=== PATIENT | male | born 1945 | race Caucasian/White ===

== ENCOUNTER 2018-03-21 08:13 | Day surgery (SDC) | payer BC, MEDICARE, OTHER ==
--- NOTE | 2018-03-20 14:04 | History and Physical ---
History & Physical Date March 20, 2018. Chief Complaint Left knee pain History of Present Illness The patient is a 72 year old male with complaints of left knee pain. Patient has osteoarthritis of knee and did have some relief of knee pain following the Coolief procedure. He sustained a fall and twisted knee and has had significant increase of pain since. MRI was obtained demonstrating a tear of his medial meniscus. He wishes to proceed with arthroscopic partial medial meniscectomy. Patient denies fever, chills, sweats, headaches, chest pain, sob, cough, dysphagia, n/v/d/c, numbness, tingling, changes in vision, urinary problems. Past Medical/Surgical History Medical Problems: Asthma, Bronchitis, COPD/emphysema, HEYDI, BPH, obesity, history of DM2 Surgical history: Stent placement, cataracts, sinus surgery, tonsillectomy, leg fracture ORIF, bronchoscopy Social History: Patient lives in a 2 story home and is retired. He drinks alcohol on a rare occasion, denies drug or tobacco use. He is a former smoker Medications: Breo Ellipta, Spiriva, Ventolin, and Tramadol Allergies: NKDA Additional History Hepatic Disease: No Endocrine Disorder: Yes (history of DM2) Hypertension: No Heart Disease: Yes Bleeding Tendencies: No Infectious Diseases: No Allergies Coded Allergies: Fluticasone (Verified Allergy, Unknown, Unknown rxn, 07/30/14) Salmeterol (Verified Allergy, Unknown, Unknown rxn, 07/30/14) Home Medications Scheduled Beclomethasone Dipropionate (Qvar), 2 PUFFS INH BID Formoterol Fumarate (Perforomist), 20 MCG INH BID Furosemide (Lasix), 40 MG PO QAM Lorazepam (Ativan *), 0.5-1 MG PO Q8HR PRN Metformin Hcl (Glucophage), 1,000 MG PO BID Mometasone Furoate (Nasonex), 2 SPRAYS BRADLY DAILY Prednisone (Prednisone), 5 MG PO DAILY Tamsulosin Hcl (Flomax *), 0.4 MG PO DAILY Scheduled PRN Albuterol Hfa (Ventolin Hfa), 1-2 PUFFS INH for RESCUE INHALER Ciclesonide (Nasal) (Zetonna), 1 SPRAY BRADLY DAILY PRN for SINUS TROUBLE Ipratropium-Albuterol (Duoneb), 1 TREATMENT INH Q4H PRN for SOB/Wheezing Physical Examination Skin: warm/dry, no rash Eyes: normal inspection, sclerae normal ENT: normal ENT inspection, pharynx normal Head: normocephalic, atraumatic Neck: supple, no adenopathy, trachea midline Respiratory/Chest: lungs clear Cardiovascular: regular rate, rhythm Extremities: + pertinent finding (Left knee-Tenderness medial joint line. ROM- 10 degrees of extension, 120 degrees of flexion. Positive Rosa's) Neurologic/Psych: alert, normal reflexes, oriented x 3 Diagnosis Left knee Medial Meniscal tear Plan of Treatment MRI revealed complex tear of the medial meniscus. Treatment options were discussed with the patient including surgical and nonsurgical. Patient wishes to proceed with arthroscopic surgery. Risks, benefits, and alternatives to surgery were discussed with the patient including, but not limited to infection , failure to relieve all symptoms, pain, stiffness, need for additional surgery , progression of arthritis, damage to blood vessels, damage to nerves, PE, , risks of anesthesia and they demonstrated understanding. Patient is scheduled for left knee arthroscopic partial medial meniscectomy for 03/21/18.
--- NOTE | 2018-03-20 14:10 | DIAGNOSTIC IMAGING REPORT ---
CHEST 2 VIEWS ROUTINE CLINICAL HISTORY: 72 years-old Male presenting with PRE OP TESTING. TECHNIQUE: PA and lateral views of the chest were obtained. COMPARISON: 10/22/2014. FINDINGS: Atherosclerosis of the aortic arch. Cardiac silhouette normal in size. Elevation of the bilateral hemidiaphragms unchanged. Minimal linear bibasilar opacities. No other focal opacity. No pleural effusion or pneumothorax. Degenerative changes of the thoracic spine. Upper abdomen normal. IMPRESSION: 1. Minimal bibasilar atelectasis or scarring. No convincing evidence of acute cardiopulmonary disease. Electronically signed by: Sanya Morel M.D. 03/20/2018 2:08 PM Dictated Date/Time: 03/20/2018 2:08 PM
[2018-03-20 15:35] LABS: HEMATOCRIT 45.3 % (42-52); HEMOGLOBIN 15.6 g/dL (14.0-18.0); MEAN CELL VOLUME 82.7 fL (80-100); MEAN CORPUSCULAR HEMOGLOBIN 28.5 pg (25-34); MEAN CORPUSCULAR HGB CONC 34.4 g/dl (32-36); MEAN PLATELET VOLUME 9.5 fL (7.4-10.4); PLATELET COUNT 275 K/uL (130-400); RED CELL DISTRIBUTION WIDTH CV 13.3 % (11.5-14.5); RED CELL DISTRIBUTION WIDTH SD 40.3 fL (36.4-46.3); WHITE BLOOD COUNT 8.37 K/uL (4.8-10.8)
[2018-03-20 15:36] LABS: BASO % 0.6 %; BASO ABS # 0.05 K/uL (0-0.2); EOS % 4.1 %; EOS ABS # 0.34 K/uL (0-0.5); IG# 0.02 K/uL (0.00-0.02); LYMPH % 22.8 %; LYMPH ABS # 1.91 K/uL (1.2-3.4); MONO % 8.4 %; NEUT % 63.9 %; NEUT ABS # 5.35 K/uL (1.4-6.5)
[~2018-03-21] VITALS: Ht 175.3 cm; Wt 117.9 kg
[~2018-03-21 08:13] MED LIST: ATV1 PO; BECL0.3A INH; CEFAZOLIN 2000MG IV PUSH 15 ML IV SCH; FLM4 PO; FORM1NEB INH; FRS/40 PO; IPRASOL4 INH; LACTATED RINGER'S 1000ML 1,000 ML IV SCH; METF-384 PO; MOME50SP5 NAE; PATIENT'S HEIGHT AND/OR WEIGHT NEEDED SCH; PRED-301 PO; VNTHFA/IN INH; [UNRECOGNIZED DRUG - CODE] NAE
[2018-03-21 08:42] VITALS: BP 152/82; PULSE 73; TEMP 36.8; O2SAT 95; Ht 175.3 cm; Wt 117.9 kg
--- NOTE | 2018-03-21 09:09 | History & Physical Bridge Note ---
H&P Re-Evaluation Bridge Note: I have examined the patient, reviewed the History & Physical and in the interval since the performance of the History & Physical I have noted the following changes of clinical significance: No changes noted
[2018-03-21 09:16] LABS: BLOOD UREA NITROGEN 19 mg/dl (7-18); CREATININE 1.04 mg/dl (0.60-1.40); GLUCOSE 134 mg/dl (70-99)
[2018-03-21 09:17] LABS: CALCIUM 8.6 mg/dl (8.5-10.1); CARBON DIOXIDE 29 mmol/L (21-32); POTASSIUM 3.8 mmol/L (3.5-5.1); SODIUM 142 mmol/L (136-145)
[2018-03-21] MEDS ORDERED: MIDAZOLAM HCL 1 MG/ML 2ML VIAL ONE (10:49)
[2018-03-21] MEDS ORDERED: FENTANYL CITRATE INJ 50 MCG/1 ML 2 ML VIAL ONE ×3 (10:50→13:03)
[2018-03-21] MEDS ORDERED: BUPIVACAINE 0.25% 30 ML VIAL ONE (11:47)
[2018-03-21] MEDS ORDERED: LIDOCAINE/EPINEPHRINE 1% 20 ML VIAL ONE (11:47)
[2018-03-21] MEDS ORDERED: LIDOCAINE HCL 2% 2 ML VIAL (20MG/ML) ONE (11:56)
[2018-03-21] MEDS ORDERED: ONDANSETRON INJ 2 MG/ML 2 ML VIAL ONE (11:56)
[2018-03-21] MEDS ORDERED: PROPOFOL IV EMULSION 10 MG/ML 20 ML VIAL ONE ×2 (11:56→12:31)
[2018-03-21] MEDS ORDERED: CEFAZOLIN SOD 1 GM VIAL ONE (11:56)
[2018-03-21] MEDS ORDERED: ONDANSETRON INJ 2 MG/ML 2 ML VIAL IV PRN (12:00)
[2018-03-21] MEDS ORDERED: ATROPINE SULFATE 0.1 MG/ML 5ML SYR IV PRN (12:00)
[2018-03-21] MEDS ORDERED: FENTANYL CITRATE INJ 50 MCG/1 ML 2 ML VIAL IV PRN (12:00)
[2018-03-21] MEDS ORDERED: BUPIVACAINE 0.5 % 5 MG/1 ML PF 10ML VIAL ONE (12:03)
--- NOTE | 2018-03-21 12:18 | Discharge Instructions ---
Discharge Instructions Date of Service March 21, 2018. Visit Reason for Visit: Left Knee Medial Meniscus Tear Discharge Discharge Diagnosis / Problem: Left knee Medial Meniscus tear Discharge Goals Goal(s): Decrease discomfort, Improve function Activity Recommendations Activity Limitations: per Instructions/Follow-up section Anesthesia . Post Anesthesia Instructions: If you have had General Anesthesia or IV Sedation: * Do not drive today. * Resume driving when surgeon permits. * Do not make important decisions or sign legal documents today. * Call surgeon for: 1. Temperature elevations greater than 101 degrees F. 2. Uncontrollable pain. 3. Excessive bleeding. 4. Persistent nausea and vomiting. 5. Medication intolerance (nausea, vomiting or rash). * For nausea and vomiting use only clear liquids such as: tea, soda, bouillon until nausea subsides, then gradually increase diet as tolerated. * If you have any concerns or questions, call your surgeon's office. If physician is unavailable and it is an emergency, call 911 or go to the nearest emergency room. . Instructions / Follow-Up Instructions / Follow-Up SPECIAL CARE INSTRUCTIONS: * You may cleanse the skin adjacent to the small wounds with soap and water at the time of the first dressing change. * The application of an ice bag to the front and sides of the knee will decrease swelling and discomfort for the first 48 hours. * The small incisions may be sore and develop bruising. This bruising does not require any special care. SPECIAL PRECAUTIONS: * If you experience unusual pain unrelieved by prescriptions, temperature elevation (101 degrees F. or above) or progressive swelling or bleeding, you should contact our office at for further evaluation. * You may have been prescribed pain medication. If you experience nausea and/or fine skin rash, discontinue this medication and contact our office at for an alternate medication. DRESSING: * Dressing should be comfortable and absorb any leakage of fluid and/or blood. * The dressing may become moist or bloodstained. * Dressing may be removed 48 hours after surgery and bandaids placed over the small surgical incisions. If can be removed sooner if it becomes very soiled or loose. * Bandaids may be used over next several days as needed and can be discontinued when there is not further drainage from the wounds. FOLLOW UP VISIT: If appointment is not already scheduled: Please call [facility] at to schedule a follow up appointment with Dr. Plasencia 10-14 days following your surgery. Diet Recommendations Recommended Home Diet: resume previous diet Procedures Procedures Performed: Left knee arthroscopic partial medial meniscetcomy Pending Studies Studies pending at discharge: no Medical Emergencies . Who to Call and When: Medical Emergencies: If at any time you feel your situation is an emergency, please call 911 immediately. . Non-Emergent Contact Non-Emergency issues call your: Surgeon Call Non-Emergent contact if: temperature is above 101.5, your pain is not controlled, your pain is worsening, your pain is concerning you, wound has increased drainage, wound has increased redness . . "Provider Documentation" section prepared by Kei Ortega. . [place] Drug Monitoring Program Search Results: patient reviewed within database, no issues identified
[2018-03-21] MEDS ORDERED: HYDR-5688 PO (12:19)
--- NOTE | 2018-03-21 12:51 | [facility] Operative Report ---
Operative Report Operative Date March 21, 2018. Pre-Operative Diagnosis Left Knee Medial Meniscal Tear Post-Operative Diagnosis Same as preoperative Procedure(s) Performed Left knee arthroscopic partial medial meniscetcomy Surgeon Dr. Sanya Plasencia Photographic Specialist Surgeon(s) None per surgeon Estimated Blood Loss 1ml Findings As above Specimens None per surgeon. Drains None Anesthesia Type General Complication(s) none Disposition Recovery Room / PACU Indications Patient is a 72-year-old male who has had long-standing pain in the left knee. He sustained traumatic injury and developed significant pain and mechanical symptoms. He is failed conservative measures including cortisone injection and physical therapy and anti-inflammatories. MRI demonstrates a complex medial meniscus tear and he wishes to proceed with arthroscopy. Description of Procedure MRI demonstrated a complex tear of the posterior horn of the lateral meniscus. We discussed various treatment measures. The patient wished to proceed with arthroscopic partial lateral meniscectomy. Risks, benefits and alternatives to surgery including, but not limited to, infection, DVT, pain, stiffness, need for revision surgery, failure to relieve all symptoms, damage to blood vessels, damage to nerves, risk of the anesthesia were discussed with the patient and they wished to proceed. The patient was identified. Laterality was confirmed and marked. The patient received a preoperative antibiotic. They were transferred to the operating room and placed in supine position and induced into general endotracheal anesthesia per the anesthesia staff. A well-padded tourniquet was placed on the thigh and the limb was prepped and draped in the usual standard manner with ChloraPrep. The limb was exsanguinated and the tourniquet was inflated. I made a standard anterolateral viewing portal made through a stab incision and bluntly entered the suprapatellar pouch. Then under spinal needle localization I established an anteromedial portal. There was grade 3 cartilage of the patella. There was grade 3 cartilage of the trochlea. There was grade 2 and 3 cartilage of the medial femoral condyle. There was grade 2 cartilage with a small region of 4 posteriorly of the medial tibial plateau. The medial meniscus had a complex tear of the posterior horn with a radial tear going through the entirety of the medial meniscus. This was debrided back to a stable base utilizing combination of the shaver as well as meniscal biter. The ACL and PCL were probed and were normal. The lateral meniscus was normal There was grade 0 cartilage of the lateral femoral condyle. There was grade 1 cartilage of the lateral tibial plateau. All of the instrumentation was removed from the knee. The portal sites were closed with nylon. A sterile dressing was applied and the tourniquet was released. All needle and sponge counts were correct at the end of the procedure. The patient was transferred to the PACU in stable condition without apparent complication. I attest to the content of the Intraoperative Record and any orders documented therein. Any exceptions are noted below.
[2018-03-21] MEDS ORDERED: NURSING VERBAL MED ORDER ONE ×2 (13:20→13:42)
[2018-03-21] MEDS ORDERED: KETOROLAC TROMETHAMINE 30 MG/ML VIAL ONE (13:21)
[2018-03-21 13:50] VITALS: BP 124/53; PULSE 67; TEMP 36.3; O2SAT 98
[2018-03-21] MEDS ORDERED: HYDROCODONE/ACETAMIN 5/325MG TAB PO PRN (14:00)
--- NOTE | 2018-03-21 14:28 | Anesthesiology Progress Note ---
Anesthesia Post Op Note Date & Time March 21, 2018 at 14:28 Vital Signs Pain Intensity: 4 Vital Signs Past 12 Hours Date Time Temp Pulse Resp B/P (MAP) Pulse Ox O2 Delivery O2 Flow Rate FiO2 03/21/18 13:35 36.2 70 12 152/81 95 Room Air 03/21/18 13:25 66 19 139/84 97 Nasal Cannula 2 03/21/18 13:15 66 14 143/81 100 Nasal Cannula 3 03/21/18 13:05 70 17 182/96 99 Nasal Cannula 3 03/21/18 12:57 36.0 68 19 165/114 99 Nasal Cannula 3 03/21/18 08:42 36.8 73 20 152/82 (105) 95 Room Air Notes Mental Status: alert / awake / arousable, participated in evaluation Pt Amnestic to Procedure: Yes Nausea / Vomiting: adequately controlled Pain: adequately controlled Airway Patency, RR, SpO2: stable & adequate BP & HR: stable & adequate Hydration State: stable & adequate Anesthetic Complications: no major complications apparent
[2018-03-21 14:30] VITALS: BP 151/72; PULSE 76; TEMP 36.3; O2SAT 93
== END 2018-03-21 14:43 | disposition home or self-care (01) ==
LOC: C.ACU 08:13
PROVIDERS: ATTEND Orthopaedic Surgery
DX: S83.232A Complex tear of medial meniscus, current injury, left knee, initial encounter (principal); X58.XXXA Exposure to other specified factors, initial encounter; I25.10 Atherosclerotic heart disease of native coronary artery without angina pectoris; J44.9 Chronic obstructive pulmonary disease, unspecified; J45.909 Unspecified asthma, uncomplicated; M17.12 Unilateral primary osteoarthritis, left knee; G47.33 Obstructive sleep apnea (adult) (pediatric); E66.9 Obesity, unspecified; Z68.31 Body mass index [BMI] 31.0-31.9, adult; E11.9 Type 2 diabetes mellitus without complications; Z98.49 Cataract extraction status, unspecified eye; Z98.890 Other specified postprocedural states; Z90.89 Acquired absence of other organs; F17.200 Nicotine dependence, unspecified, uncomplicated; Z79.899 Other long term (current) drug therapy

== ENCOUNTER 2019-08-06 07:25 | Inpatient (IN) ==
[2019-08-06] MEDS ORDERED: ICU PROTOCOL FOR HYPERGLYCEMIA PRN (12:04)
[2019-08-06] MEDS ORDERED: PIPERACILL/TAZOBAC CONSULT ACTIVE PRN (12:11)
[2019-08-06] MEDS ORDERED: VANCOMYCIN CONSULT ACTIVE PRN (12:11)
[2019-08-06] MEDS ORDERED: PIPERACILLIN/TAZOBACTAM 3.375 GM in DEXTROSE 5% 100 ML IV SCH (12:15)
[2019-08-06] MEDS ORDERED: VANCOMYCIN HCL 1,800 MG in SODIUM CHLORIDE 0.9% 500 ML IV SCH (12:15)
[2019-08-06] MEDS ORDERED: NOREPINEPHRINE BIT INJ 8 MG in DEXTROSE 5% 500 ML IV SCH (12:45)
--- NOTE | 2019-08-06 12:58 | XRay Report ---
XR chest 1V portable CLINICAL HISTORY: 73 years-old Male presenting with Hypoxic respiratory failure. TECHNIQUE: Portable upright AP view of the chest was obtained. COMPARISON: 10/22/2014. FINDINGS: Left subclavian central venous catheter terminates in the mid SVC. Cardiomediastinal silhouette piyush l allowing for mildly low lung volumes and hypoventilatory changes. Bandlike opacity at the left lung base. No other focal opacity. Mild pulmonary vessel prominence. No large effusion or pneumothorax. D egenerative changes of the thoracic spine. Upper abdomen normal. IMPRESSION: 1. Mildly low lung volumes with hypoventilatory changes and left basilar atelectasis. 2. Mild volume overload may be present. No prasanth pulmonary edema or focal infiltrate. 3. Appropriately positioned central venous catheter. No pneumothorax. Electronically signed by: Sanya Morel M.D. 08/06/2019 12:57 PM
[2019-08-06] MEDS ORDERED: CARBOHYDRATES FOR HYPOGLYCEMIA PO PRN (13:00)
[2019-08-06] MEDS ORDERED: DEXTROSE 50% 50 ML SYRINGE IV PRN (13:00)
[2019-08-06] MEDS ORDERED: INSULIN GLARGINE SOLOSTAR 100 UNITS/ML 3 ML PEN SC ONE (13:00)
[2019-08-06] MEDS ORDERED: PIPERACILLIN/TAZOBACTAM 4.5 GM in DEXTROSE 5% 100 ML IV ONE (13:00)
[2019-08-06] MEDS ORDERED: GLUCAGON FOR INJ 1 MG VIAL IM PRN (13:00)
[2019-08-06] MEDS ORDERED: INSULIN ASPART 100 UNITS/ML 3 ML PEN SC ONE (13:00)
[2019-08-06] MEDS ORDERED: GLUCOSE 40% GEL 15 GM TUBE PO PRN (13:00)
[2019-08-06] MEDS ORDERED: GLUCOSE 10 TABS/TUBE PO PRN (13:00)
[2019-08-06 13:03] LABS: Albumin Level 2.9 gm/dl (3.4-5.0); BUN Creatinine Ratio 21.8 (10-20); Calcium 8.5 mg/dl (8.5-10.1); Creatinine Clr Calc Pharmacy 56.4 ml/min; Est GFR (African American) 56.4; Est GFR (Non-African American) 48.7; Magnesium 2.3 mg/dl (1.8-2.4); Potassium 4.1 mmol/L (3.5-5.1)
[2019-08-06 13:08] LABS: Bilirubin,Total 0.7 mg/dl (0.2-1); Globulin 2.9 gm/dl (2.5-4.0); Phosphorus 3.3 mg/dl (2.5-4.9); Total Protein 5.8 gm/dl (6.4-8.2)
[2019-08-06 13:10] LABS: Hematocrit (blood only) 41.7 % (42-52); Hemoglobin 13.8 g/dL (14.0-18.0); Mean Corpuscular Hemoglobin 28.7 pg (25-34); Mean Corpuscular Hgb Conc 33.1 g/dL (32-36); Mean Corpuscular Volume 86.7 fL (80-100); Mean Platelet Volume 9.8 fL (7.4-10.4); Platelet Count 275 K/uL (130-400); RDW Coefficient of Variation 14.2 % (11.5-14.5); RDW Standard Deviation 44.6 fL (36.4-46.3); Red Blood Count 4.81 M/uL (4.7-6.1); White Blood Count 82.24 K/uL (4.8-10.8)
[2019-08-06 13:11] LABS: Basophils # (auto) 0.08 K/uL (0-0.2); Basophils % (auto) 0.1 %; Eosinophils # (auto) 0.03 K/uL (0-0.5); Immature Granulocytes # (auto) 2.27 K/uL (0.00-0.02); Immature Granulocytes % (auto) 2.8 %; Lymphocytes # (auto) 0.42 K/uL (1.2-3.4); Lymphocytes % (auto) 0.5 %; Monocytes # (auto) 2.36 K/uL (0.11-0.59); Monocytes % (auto) 2.9 %; Neutrophils # (auto) 77.08 K/uL (1.4-6.5); Neutrophils % (auto) 93.7 %
[2019-08-06] MEDS: PATIENT'S HEIGHT AND/OR WEIGHT NEEDED SCH ×2 (13:35→15:25)
[2019-08-06] MEDS ORDERED: SODIUM CHLORIDE 0.9% 1000ML 500 ML IV ONE ×2 (13:36→15:24)
[2019-08-06 14:13] LABS: Hematocrit (blood only) 39.1 % (42-52); Hemoglobin 13.1 g/dL (14.0-18.0); Mean Corpuscular Hemoglobin 28.9 pg (25-34); Mean Corpuscular Hgb Conc 33.5 g/dL (32-36); Mean Corpuscular Volume 86.3 fL (80-100); Mean Platelet Volume 9.5 fL (7.4-10.4); Platelet Count 279 K/uL (130-400); RDW Coefficient of Variation 14.3 % (11.5-14.5); RDW Standard Deviation 45.1 fL (36.4-46.3); Red Blood Count 4.53 M/uL (4.7-6.1); White Blood Count 75.41 K/uL (4.8-10.8)
[2019-08-06 14:17] LABS: iSTAT Allen Test Pass; iSTAT Arterial Blood Gas HCO3 18 meg/L (19-24); iSTAT Arterial Blood Gas pCO2 32 mmHg (35-46); iSTAT Arterial Blood Gas pH 7.35 (7.35-7.45); iSTAT Arterial Blood Gas pO2 87 mmHg (80-95); iSTAT Carbon Dioxide 19 mEq/l (24-31); iSTAT Site L Radial
[2019-08-06 14:20] LABS: Basophils % (auto) 0.1 %; Eosinophils # (auto) 0.01 K/uL (0-0.5); Immature Granulocytes # (auto) 1.85 K/uL (0.00-0.02); Immature Granulocytes % (auto) 2.5 %; Lymphocytes # (auto) 0.33 K/uL (1.2-3.4); Lymphocytes % (auto) 0.4 %; Monocytes # (auto) 2.04 K/uL (0.11-0.59); Monocytes % (auto) 2.7 %; Neutrophils # (auto) 71.08 K/uL (1.4-6.5); Neutrophils % (auto) 94.3 %
[2019-08-06] MEDS ORDERED: PHARMACY GLYCEMIC MGMT CONSULT SCH (15:24)
--- NOTE | 2019-08-06 15:34 | Pharmacy Report ---
Pharmacy Abx Dose Short Note - Date of Service August 06, 2019 - Assessment & Plan Assessment 73 year old M receiving vancomycin, zosyn, and azithromycin for treatment of possible sepsis. Patient received 1500mg IV vanc at 0612, Rocephin, and azithromycin at ROSALINDA perri as confirmed with ED nurse. Will start maintenance dosing of vancomycin this afternoon early, as a modified load, given ROSALINDA perri dose was only 15mg/kg. Further dosing and trough attainment will depend on kidney function trend. Day # 1 of antimicrobial therapy. Plan Vancomycin * Random level was 13 mcg/mL 6 hours post first dose * Start dose of 1500 mg IV every 18 hours @ 1600 * Trough or random level ordered for: as clinically indicated pending renal function trend Pharmacy will continue to follow and will adjust dose/frequency as necessary. Thank you.
--- NOTE | 2019-08-06 15:40 | Critical Care Consultation ---
Date of Consultation August 06, 2019 Assessment & Plan (1) COPD (chronic obstructive pulmonary disease): Reason Critically Ill: 73 year old man here with 2 weeks of URI symptoms. Has continued to have worsening cough and shortness of breath. Had some chest pain last night. Neuro: Intact, no deficits CAM-ICU negative WIll continue to monitor VERY HARD OF HEARING Cardiovascular: Hypotensive requiring .1mcg/kg/min of levophed Not tachycardic, no chest pain currently WIll order troponin Bedside ultrasound showing good heart squeeze and no asymmetry, will order formal echo Septic shock vs cardiogenic shock Patient denies history of heart disease, but his records from outside hospital mention CAD with stent placement Respiratory Oxygenating well on nasal cannula set at 2 L of oxygen No respiratory distress, slightly tachypneic at 24 respirations per minute Likely compensating for metabolic acidosis by blowing off CO2 GI: No GI symptoms No abdominal pain or tenderness on exam WIll get a CT abdomen to rule out abdominal source ID: Concerned for septic shock unknown cause Lactate 6.1 Procal >120 Lungs appear clear on CXR awaiting CTA from outside hospital to be transcribed CT abdomen pelvis ordered Awaiting blood cultures and urinary cultures Possible bacteremia/fungemia HEME: White count 82.24 Peripheral smear concerning for myeloproliferative disease, ordered LDH BCR-ABL will consult hematology Dipso: ICU for pressor requirement DVT PPx: Lovenox F/E/N: Bolusing normal saline currently up 1 L Code Status: Full (2) Asthma: (3) Bronchitis: (4) Sepsis: (5) Septic shock: (6) Neutrophilia: (7) Hypotension: (8) Acute hypoxemic respiratory failure: Supervising Physician Co-Signing Physician Notes Dr. Felix was the resident-physician during care of patient. I separately evaluated patient for henry portions of the history and the exam. I was present during the critical portion of medical decision making, and I discussed the case with the resident. I generally agree with the findings and plan except for any additions/exceptions noted. Patient seen and examined at bedside. Transferred from [facility] in shock on vasopressors. Saturating 98% on 2 L nasal cannula with Mild respiratory distress. Lungs clear. Patient is coughing but not bringing up any phlegm. WBC count 75 thousand confirmed on repeat. Pathology saw blasts. Oncology has been consulted. CXR, CT abd and pelvis reviewed. No clear source of infection although patients PCT is 103. ESR 16 and CRP: 7. Recent travel history to [facility]. Patient's cortisol level 17. Low compared to the high stress the patient is in. Patient denies taking any steroids recently or being on steroids for a long time. Will get cosyntropin test. Get ferritin level. C/w broad spectrum antibiotics for the time being. BiPAP qhs. If there is any deterioration in clinical status will intubate the patient. Goals of care discussed with patient. Bedside US: Good EF, no pericardial tamponade, Normal RVOT. No B lines appreciated anteriorly. I have personally spent 70 minutes of critical care time in the direct management of this patient. This is a life/limb threatening event. This includes time spent evaluating patient, direct bedside care, chart review, placing orders, interpretation of diagnostic studies, discussion with consultants, patient, and/or family members regarding treatment decisions, as well as other required patient management activities. This time is exclusive of all separately billable procedures, and teaching time and separate from and in addition to any other critical care service time. History of Present Illness Reason for Consultation: Septic Shock Requesting Physician: Renato Guillermo DO Attending Physician: Renato Guillermo DO History of Present Illness Kei Lassiter is a 73 year old man with a past medical history significant for CAD with stent placement and COPD here today as a transfer from [facility] for septic shock. Today he is alert and tells us he started to get sick two weeks ago while he was in [place], he has been having a cough, occasional chest pain, shortness of breath, fatigue, pain and fevers/chills. He is very hard of hearing. He had an elevated lactate to 6.0 at outside hospital up from4.0 on admission, his white count at outside hospital was 22, on admission to us it was as high as 82 rechecked and it was down to 75. Lactate elevated further to 6.1. Creatinine jumped to 1.45 bicarb slightly low at 19. Rest of electrolytes unremarkable ABG showed compensated metabolic acidosis. AST and ALT elevated to 60 and 96 respectively. CRP elevated to 7.62, procalcitonin of 103.68. Patient maintaining pressure on .1mcg/KG/min. oxygenating well on 2L by nasal cannula. Rest of vital signs stable. Patient denies any chest pain, Belly pain, GI symptoms, Urinary symptoms other than some chronic frequency from BPH, no other wounds, rashes or pain patient can report. History from patient is VERY difficult due to his hearing difficulty. Allergies Allergy/AdvReac Type Severity Reaction Status Date / Time fluticasone Allergy Mild Hives Verified 07/31/19 12:02 salmeterol Allergy Mild Hives Verified 07/31/19 12:02 Home Medications Home Medications Medication Instructions Recorded Confirmed Type albuterol sulfate HFA 90 2 puffs INHALATION Q4H #18 gm 07/31/19 07/31/19 Rx mcg/actuation aerosol inhaler fluticasone furoate 100 1 inh INH DAILY #1 inhaler 07/31/19 07/31/19 Rx mcg-vilanterol 25 mcg/dose inhalation powder ipratropium-albuterol 0.5 mg-3 3 ml INHALATION Q4H PRN #180 ml 07/31/19 07/31/19 Rx mg(2.5 mg base)/3 mL nebulization soln levofloxacin 750 mg tablet 750 mg PO DAILY #14 tab 07/31/19 07/31/19 Rx nebulizers #1 ea 07/31/19 07/31/19 Rx prednisone 10 mg tablet See Rx Instructions PO DAILY #20 07/31/19 07/31/19 Rx tab Patient History Medical History COPD (chronic obstructive pulmonary disease) Family History Other Hypertension Social History Preferred Language: Burmese Communication Ability: Effective Plaster Tender Required: No Beliefs That Will Affect Care: None Current Living Situation: Other Current Living Situation Comment: with significant other. Son yemi lives within a few minutes Other Information That Helps Us Care for You: No Feels Safe at Home: Yes Safety Concerns: Feels Safe At This Time Smoking Status: Former smoker Tobacco Type: cigarettes ; Age Started Using Tobacco: 15 ; Age Quit Using Tobacco: 30 ; packs per day: 2 ; Smoking End Date: 1975 ; Number of Years Since Quit: 44 ; Second Hand Exposure: Yes ; Hx Alcohol Use: No Hx Substance Use: No Review of Systems Review of Systems: All systems reviewed & are unremarkable except as noted in HPI & below Physical Exam Constitutional: Constitutional: Ill appearing 73 year old man appears stated age. Respiratory: Lungs clear to auscultation, vesicular in all lung serrano, chest expansion symmetric Cardiovascular: Heart sounds dual, no m/r/s/g, distal pulses intact and strong, cap refill <5 seconds GI: Abdomen soft, nontender, no hepatomegaly or splenomegaly appreciated. SKin: Bilateral axillary hyperpigmented rash, no bruising, no bleeding, no wounds Neuro: AAOx4, no focal deficits, no weakness Results & Data Vital Signs (Past 12 Hours) Abnormal lab results 08/06/19 08/06/19 08/06/19 Range/Units 12:32 12:32 12:32 WBC 82.24 H* (4.8-10.8) K/uL RBC (4.7-6.1) M/uL Hgb 13.8 L (14.0-18.0) g/dL Hct 41.7 L (42-52) % Immature Gran # (Auto) 2.27 H (0.00-0.02) K/uL Neut # (Auto) 77.08 H (1.4-6.5) K/uL Lymph # (Auto) 0.42 L (1.2-3.4) K/uL [place] # (Auto) 2.36 H (0.11-0.59) K/uL ESR (0-14) mm/hr POC pCO2 (35-46) mmHg POC HCO3 (19-24) danielle/L POC Total CO2 (24-31) mEq/l POC ABG O2 Sat (90-95) % Chloride 110 H (98-107) mmol/L Carbon Dioxide 19 L (21-32) mmol/L Anion Gap 12.0 H (3-11) BUN 31 H (7-18) mg/dl Creatinine 1.42 H (0.6-1.4) mg/dl BUN/Creatinine Ratio 21.8 H (10-20) Glucose 222 H (70-99) mg/dl POC Glucose (70-99) POC Glucose (other) (70-99) mg/dl Lactate 6.1 H* (0.4-2.0) mmol/L Ferritin (8-388) ng/ml AST 60 H (15-37) U/L ALT 96 H (12-78) U/L Troponin I (0-0.045) ng/ml C-Reactive Protein (0-0.29) mg/dl NT-Pro-B Natriuret Pep 3567 H (0-900) pg/ml Total Protein 5.8 L (6.4-8.2) gm/dl Albumin 2.9 L (3.4-5.0) gm/dl Procalcitonin (0-0.5) ng/ml Urine Blood (Negative) Urine RBC (Auto) (0-4) /hpf U Epithel Cells (Auto) (0-5) /lpf 08/06/19 08/06/19 08/06/19 Range/Units 12:32 12:35 12:36 WBC (4.8-10.8) K/uL RBC (4.7-6.1) M/uL Hgb (14.0-18.0) g/dL Hct (42-52) % Immature Gran # (Auto) (0.00-0.02) K/uL Neut # (Auto) (1.4-6.5) K/uL Lymph # (Auto) (1.2-3.4) K/uL [place] # (Auto) (0.11-0.59) K/uL ESR 16 H (0-14) mm/hr POC pCO2 (35-46) mmHg POC HCO3 (19-24) danielle/L POC Total CO2 (24-31) mEq/l POC ABG O2 Sat (90-95) % Chloride (98-107) mmol/L Carbon Dioxide (21-32) mmol/L Anion Gap (3-11) BUN (7-18) mg/dl Creatinine (0.6-1.4) mg/dl BUN/Creatinine Ratio (10-20) Glucose (70-99) mg/dl POC Glucose (70-99) POC Glucose (other) 220 H (70-99) mg/dl Lactate (0.4-2.0) mmol/L Ferritin (8-388) ng/ml AST (15-37) U/L ALT (12-78) U/L Troponin I (0-0.045) ng/ml C-Reactive Protein (0-0.29) mg/dl NT-Pro-B Natriuret Pep (0-900) pg/ml Total Protein (6.4-8.2) gm/dl Albumin (3.4-5.0) gm/dl Procalcitonin 103.68 H (0-0.5) ng/ml Urine Blood (Negative) Urine RBC (Auto) (0-4) /hpf U Epithel Cells (Auto) (0-5) /lpf 08/06/19 08/06/19 08/06/19 Range/Units 12:36 13:41 14:03 WBC 75.41 H* (4.8-10.8) K/uL RBC 4.53 L (4.7-6.1) M/uL Hgb 13.1 L (14.0-18.0) g/dL Hct 39.1 L (42-52) % Immature Gran # (Auto) 1.85 H (0.00-0.02) K/uL Neut # (Auto) 71.08 H (1.4-6.5) K/uL Lymph # (Auto) 0.33 L (1.2-3.4) K/uL [place] # (Auto) 2.04 H (0.11-0.59) K/uL ESR (0-14) mm/hr POC pCO2 32 L (35-46) mmHg POC HCO3 18 L (19-24) danielle/L POC Total CO2 19 L (24-31) mEq/l POC ABG O2 Sat 96.0 H (90-95) % Chloride (98-107) mmol/L Carbon Dioxide (21-32) mmol/L Anion Gap (3-11) BUN (7-18) mg/dl Creatinine (0.6-1.4) mg/dl BUN/Creatinine Ratio (10-20) Glucose (70-99) mg/dl POC Glucose (70-99) POC Glucose (other) (70-99) mg/dl Lactate (0.4-2.0) mmol/L Ferritin (8-388) ng/ml AST (15-37) U/L ALT (12-78) U/L Troponin I (0-0.045) ng/ml C-Reactive Protein 7.62 H (0-0.29) mg/dl NT-Pro-B Natriuret Pep (0-900) pg/ml Total Protein (6.4-8.2) gm/dl Albumin (3.4-5.0) gm/dl Procalcitonin (0-0.5) ng/ml Urine Blood (Negative) Urine RBC (Auto) (0-4) /hpf U Epithel Cells (Auto) (0-5) /lpf 10/01/2008/06/19 08/06/19 Range/Units 14:55 15:02 17:09 WBC (4.8-10.8) K/uL RBC (4.7-6.1) M/uL Hgb (14.0-18.0) g/dL Hct (42-52) % Immature Gran # (Auto) (0.00-0.02) K/uL Neut # (Auto) (1.4-6.5) K/uL Lymph # (Auto) (1.2-3.4) K/uL [place] # (Auto) (0.11-0.59) K/uL ESR (0-14) mm/hr POC pCO2 (35-46) mmHg POC HCO3 (19-24) danielle/L POC Total CO2 (24-31) mEq/l POC ABG O2 Sat (90-95) % Chloride (98-107) mmol/L Carbon Dioxide (21-32) mmol/L Anion Gap (3-11) BUN (7-18) mg/dl Creatinine (0.6-1.4) mg/dl BUN/Creatinine Ratio (10-20) Glucose (70-99) mg/dl POC Glucose (70-99) POC Glucose (other) 242 H 265 H (70-99) mg/dl Lactate (0.4-2.0) mmol/L Ferritin (8-388) ng/ml AST (15-37) U/L ALT (12-78) U/L Troponin I 0.120 H* (0-0.045) ng/ml C-Reactive Protein (0-0.29) mg/dl NT-Pro-B Natriuret Pep (0-900) pg/ml Total Protein (6.4-8.2) gm/dl Albumin (3.4-5.0) gm/dl Procalcitonin (0-0.5) ng/ml Urine Blood (Negative) Urine RBC (Auto) (0-4) /hpf U Epithel Cells (Auto) (0-5) /lpf 08/06/19 08/06/19 08/06/19 Range/Units 17:23 18:04 19:03 WBC (4.8-10.8) K/uL RBC (4.7-6.1) M/uL Hgb (14.0-18.0) g/dL Hct (42-52) % Immature Gran # (Auto) (0.00-0.02) K/uL Neut # (Auto) (1.4-6.5) K/uL Lymph # (Auto) (1.2-3.4) K/uL [place] # (Auto) (0.11-0.59) K/uL ESR (0-14) mm/hr POC pCO2 (35-46) mmHg POC HCO3 (19-24) danielle/L POC Total CO2 (24-31) mEq/l POC ABG O2 Sat (90-95) % Chloride (98-107) mmol/L Carbon Dioxide (21-32) mmol/L Anion Gap (3-11) BUN (7-18) mg/dl Creatinine (0.6-1.4) mg/dl BUN/Creatinine Ratio (10-20) Glucose (70-99) mg/dl POC Glucose 249 H 221 H (70-99) POC Glucose (other) (70-99) mg/dl Lactate (0.4-2.0) mmol/L Ferritin (8-388) ng/ml AST (15-37) U/L ALT (12-78) U/L Troponin I (0-0.045) ng/ml C-Reactive Protein (0-0.29) mg/dl NT-Pro-B Natriuret Pep (0-900) pg/ml Total Protein (6.4-8.2) gm/dl Albumin (3.4-5.0) gm/dl Procalcitonin (0-0.5) ng/ml Urine Blood 3+ H (Negative) Urine RBC (Auto) 5-10 H (0-4) /hpf U Epithel Cells (Auto) 5-10 H (0-5) /lpf 08/06/19 08/06/19 08/06/19 Range/Units 19:26 19:29 20:02 WBC (4.8-10.8) K/uL RBC (4.7-6.1) M/uL Hgb (14.0-18.0) g/dL Hct (42-52) % Immature Gran # (Auto) (0.00-0.02) K/uL Neut # (Auto) (1.4-6.5) K/uL Lymph # (Auto) (1.2-3.4) K/uL [place] # (Auto) (0.11-0.59) K/uL ESR (0-14) mm/hr POC pCO2 (35-46) mmHg POC HCO3 (19-24) danielle/L POC Total CO2 (24-31) mEq/l POC ABG O2 Sat (90-95) % Chloride (98-107) mmol/L Carbon Dioxide (21-32) mmol/L Anion Gap (3-11) BUN (7-18) mg/dl Creatinine (0.6-1.4) mg/dl BUN/Creatinine Ratio (10-20) Glucose (70-99) mg/dl POC Glucose 192 H (70-99) POC Glucose (other) (70-99) mg/dl Lactate 3.9 H* (0.4-2.0) mmol/L Ferritin (8-388) ng/ml AST (15-37) U/L ALT (12-78) U/L Troponin I 0.093 H* (0-0.045) ng/ml C-Reactive Protein (0-0.29) mg/dl NT-Pro-B Natriuret Pep (0-900) pg/ml Total Protein (6.4-8.2) gm/dl Albumin (3.4-5.0) gm/dl Procalcitonin (0-0.5) ng/ml Urine Blood (Negative) Urine RBC (Auto) (0-4) /hpf U Epithel Cells (Auto) (0-5) /lpf 08/06/19 08/06/19 08/06/19 Range/Units 20:59 21:15 22:05 WBC (4.8-10.8) K/uL RBC (4.7-6.1) M/uL Hgb (14.0-18.0) g/dL Hct (42-52) % Immature Gran # (Auto) (0.00-0.02) K/uL Neut # (Auto) (1.4-6.5) K/uL Lymph # (Auto) (1.2-3.4) K/uL [place] # (Auto) (0.11-0.59) K/uL ESR (0-14) mm/hr POC pCO2 (35-46) mmHg POC HCO3 (19-24) danielle/L POC Total CO2 (24-31) mEq/l POC ABG O2 Sat (90-95) % Chloride (98-107) mmol/L Carbon Dioxide (21-32) mmol/L Anion Gap (3-11) BUN (7-18) mg/dl Creatinine (0.6-1.4) mg/dl BUN/Creatinine Ratio (10-20) Glucose (70-99) mg/dl POC Glucose 187 H 139 H (70-99) POC Glucose (other) (70-99) mg/dl Lactate (0.4-2.0) mmol/L Ferritin 970.6 H (8-388) ng/ml AST (15-37) U/L ALT (12-78) U/L Troponin I (0-0.045) ng/ml C-Reactive Protein (0-0.29) mg/dl NT-Pro-B Natriuret Pep (0-900) pg/ml Total Protein (6.4-8.2) gm/dl Albumin (3.4-5.0) gm/dl Procalcitonin (0-0.5) ng/ml Urine Blood (Negative) Urine RBC (Auto) (0-4) /hpf U Epithel Cells (Auto) (0-5) /lpf 08/06/19 Range/Units 22:34 WBC (4.8-10.8) K/uL RBC (4.7-6.1) M/uL Hgb (14.0-18.0) g/dL Hct (42-52) % Immature Gran # (Auto) (0.00-0.02) K/uL Neut # (Auto) (1.4-6.5) K/uL Lymph # (Auto) (1.2-3.4) K/uL [place] # (Auto) (0.11-0.59) K/uL ESR (0-14) mm/hr POC pCO2 (35-46) mmHg POC HCO3 (19-24) danielle/L POC Total CO2 (24-31) mEq/l POC ABG O2 Sat (90-95) % Chloride (98-107) mmol/L Carbon Dioxide (21-32) mmol/L Anion Gap (3-11) BUN (7-18) mg/dl Creatinine (0.6-1.4) mg/dl BUN/Creatinine Ratio (10-20) Glucose (70-99) mg/dl POC Glucose 128 H (70-99) POC Glucose (other) (70-99) mg/dl Lactate (0.4-2.0) mmol/L Ferritin (8-388) ng/ml AST (15-37) U/L ALT (12-78) U/L Troponin I (0-0.045) ng/ml C-Reactive Protein (0-0.29) mg/dl NT-Pro-B Natriuret Pep (0-900) pg/ml Total Protein (6.4-8.2) gm/dl Albumin (3.4-5.0) gm/dl Procalcitonin (0-0.5) ng/ml Urine Blood (Negative) Urine RBC (Auto) (0-4) /hpf U Epithel Cells (Auto) (0-5) /lpf 08/06/19 13:41 08/06/19 12:32 Diagnostic Findings CXR personally reviewed: NO clear infiltrate appreciated PG Care Time/CCT Total # of Minutes Spent Total Time Spent with Patient: Total time spent is greater than 50% in coordination of care (as documented) at patient's floor/unit and/or counseling patient: Critical Care Time: Yes Total Critical Care Time: 70 Resident Activity Tracking Resident Involvement: Resident Care Provided Care Provided: Adult Hospital Medicine
[2019-08-06] MEDS ORDERED: NovoLIN-R BOLUS FROM BAG IV ONE (15:44)
[2019-08-06] MEDS ORDERED: INSULIN REGULAR 250 UNITS in SODIUM CHLORIDE 0.9% 247.5 ML IV SCH (15:45)
[2019-08-06] MEDS ORDERED: VANCOMYCIN HCL 1,500 MG in SODIUM CHLORIDE 0.9% 500 ML IV SCH ×2 (16:00→18:00)
--- NOTE | 2019-08-06 16:34 | History & Physical Report ---
Date of Service August 06, 2019 Assessment & Plan (1) Acute hypoxemic respiratory failure: currently stable on 2L NC no clear pneumonia on CXR today may have increased work of breathing as respiratory compensation for metabolic acidosis (2) Septic shock: unclear etiology marked leukocytosis, CRP and procalcitonin very high no obvious pneumonia on CXR, will need to review CTA chest CT abdomen/pelvis without infection/inflammation urine appear clean follow up blood cultures continue Levophed for MAP> 65 Zithromax, Zosyn, Vancomycin for time being (3) COPD (chronic obstructive pulmonary disease): no obvious wheezing on exam, not in much distress (4) Leukocytosis: extremely high at 80 and then 75 on repeat was only 20k at [facility] will consult hematology for their opinion and recommendations (5) SHITAL (acute kidney injury): possible SHITAL as Cr is 1.4, prior Cr in system was 1.0 will give fluids and pressor support follow UO and repeat Cr in the AM (6) Lactic acidosis: coming down appropriately with adequate volume and pressor support continue to follow compensating with tachypnea (7) Hyperglycemia: could be due to steroids will check HbA1c in the AM History of Present Illness Chief Complaint: I was having trouble breathing Primary Care Provider: Elvin Calle, DO 73 yo male with a history of COPD who presented to the ED at [facility] last evening due to worsening shortness of breath. He reports that his breathing has been getting progressively worse for the past two months. He said that he has a history of COPD, used to use maintenance inhalers but stopped 4 years ago because his breathing was fine. He said that he went on trip to [facility] 2 months ago and stayed in a hotel and the ventilation or AC unit was not in good condition and he says that is what triggered his dyspnea. He has experienced a cough, intermittently productive of sputum. No fever or chills. No chest pain or abdominal pain. He has been trying to lose weight by following a strict diet, he has lost over 50lbs intentionally in the past few months. He denies any history of heart disease, stroke, cancer, DM, hyperlipidemia. However, he has not seen a physician in several years and was just looking to get re-established with someone. In the ED at [facility] he was found to have possible pneumonia and COPD exacerbation and was suspected to have septic shock. He was hypotensive despite adequate fluid resuscitation. He had a left subclavicular line placed and he w as started on Levophed with good response. He was given Levaquin, Solu Medrol and breathing treatments and transfer to ICU at [facility] was requested. Upon arrival he was on 2L NC but was in slight respiratory distress. He quickly calmed down. Vitals were stable and BP was in the 120's systolic on minimal pressor support. He was promptly evaluated by the ICU team on admission. Allergies Allergy/AdvReac Type Severity Reaction Status Date / Time fluticasone Allergy Mild Hives Verified 07/31/19 12:02 salmeterol Allergy Mild Hives Verified 07/31/19 12:02 Home Medications Home Medications Medication Instructions Recorded Confirmed Type albuterol sulfate HFA 90 2 puffs INHALATION Q4H #18 gm 07/31/19 07/31/19 Rx mcg/actuation aerosol inhaler fluticasone furoate 100 1 inh INH DAILY #1 inhaler 07/31/19 07/31/19 Rx mcg-vilanterol 25 mcg/dose inhalation powder ipratropium-albuterol 0.5 mg-3 3 ml INHALATION Q4H PRN #180 ml 07/31/19 07/31/19 Rx mg(2.5 mg base)/3 mL nebulization soln levofloxacin 750 mg tablet 750 mg PO DAILY #14 tab 07/31/19 07/31/19 Rx nebulizers #1 ea 07/31/19 07/31/19 Rx prednisone 10 mg tablet See Rx Instructions PO DAILY #20 07/31/19 07/31/19 Rx tab Past Med/Surg History Medical History COPD (chronic obstructive pulmonary disease) Family History Other Hypertension Social History Preferred Language: Syriac Communication Ability: Effective 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 Son yemi lives within a few minutes Other Information That Helps Us Care for You: No Feels Safe at Home: Yes Safety Concerns: Feels Safe At This Time Smoking Status: Former smoker Tobacco Type: cigarettes ; Age Started Using Tobacco: 15 ; Age Quit Using Tobacco: 30 ; packs per day: 2 ; Smoking End Date: 1975 ; Number of Years Since Quit: 44 ; Second Hand Exposure: Yes ; Hx Alcohol Use: No Hx Substance Use: No Review of Systems Review of Systems: All systems reviewed & are unremarkable except as noted in HPI & below Constitutional: + fatigue, + weakness and + weight loss (intentional); no fever, no chills and no sweats Ear, Nose, Mouth, Throat: + hearing loss Respiratory: + cough, + dyspnea, + dyspnea on exertion, + sputum production and + wheezing; no pain with cough Cardiovascular: no chest pain, no palpitations, no syncope and no edema Gastrointestinal: no abdominal pain, no nausea, no vomiting, no constipation and no diarrhea/loose stools Genitourinary: no dysuria, no difficulty urinating and no urinary frequency Integumentary: no rash Neurologic: no localized weakness, no tremor(s), no seizure-like activity, no syncope and no headache(s) Physical Exam Constitutional: WD/WN, vitals as above + overweight; no acute distress Eyes: PERRL, conjunctivae normal, anicteric sclerae ENMT: external ear and nose normal, oropharynx normal Neck: trachea midline, no thyromegaly Respiratory: normal respiratory effort, lungs clear to auscultation Cardiovascular: RRR, no murmur, no edema Gastrointestinal (Abdomen): normal bowel sounds, soft, nontender, no hepatosplenomegaly Musculoskeletal: no cyanosis or clubbing, extremities motor strength 5/5 Skin: no rashes, warm and dry Neurologic: patellar DTR's 2+ bilat, sensation intact and PERRL, EOMI, accommodation nl, no face palsy, no dysarthria Psychiatric: A+Ox3, euthymic affect Lymphatic: no cervical or axillary lymphadenopathy Results & Data Vital Signs (Past 12 Hours) Vital Signs Temp Pulse Resp BP Pulse Ox 08/06/19 15:15 80 24 121/73 99 08/06/19 15:00 73 24 98/73 L 99 08/06/19 14:45 71 22 120/74 94 08/06/19 14:31 70 25 H 118/69 100 08/06/19 14:15 78 27 H 119/77 96 08/06/19 14:00 83 24 129/78 99 08/06/19 13:30 77 30 H 104/64 99 08/06/19 13:23 84 31 H 110/71 98 08/06/19 12:46 80 25 H 125/89 98 08/06/19 12:15 79 24 110/85 96 08/06/19 12:00 36.9 C 73 25 H 98/64 L 96 08/06/19 11:45 73 20 133/83 96 Laboratory Results Laboratory Results - last 24 hr 08/06/19 08/06/19 08/06/19 12:00 12:22 12:32 WBC 82.24 H* RBC 4.81 Hgb 13.8 L Hct 41.7 L MCV 86.7 MCH 28.7 MCHC 33.1 RDW Std Deviation 44.6 RDW Coeff of Katlin 14.2 Plt Count 275 MPV 9.8 Immature Gran % (Auto) 2.8 Neut % (Auto) 93.7 Lymph % (Auto) 0.5 Carroll % (Auto) 2.9 Eos % (Auto) 0.0 Baso % (Auto) 0.1 Immature Gran # (Auto) 2.27 H Neut # (Auto) 77.08 H Lymph # (Auto) 0.42 L Carroll # (Auto) 2.36 H Eos # (Auto) 0.03 Baso # (Auto) 0.08 Peripher Smr Path Cons ESR Sample Site POC pH POC pCO2 POC pO2 POC HCO3 POC Total CO2 POC Base Excess POC ABG O2 Sat Arben Test O2 Delivery Device Sodium Potassium Chloride Carbon Dioxide Anion Gap BUN Creatinine Est Cr Clr Drug Dosing Est GFR ( Amer) Est GFR (Non-Af Amer) BUN/Creatinine Ratio Glucose POC Glucose (other) Lactate Calcium Phosphorus Magnesium Total Bilirubin AST ALT Alkaline Phosphatase Lactate Dehydrogenase Troponin I C-Reactive Protein NT-Pro-B Natriuret Pep Total Protein Albumin Globulin Albumin/Globulin Ratio Procalcitonin Nasal Screen MRSA (PCR) Negative Random Vancomycin Mycoplasma pneumon IgG Pending Mycoplasma pneumon IgM Pending BCR/abl t(9;22) (FISH) [facility] Genetic Test 08/06/19 08/06/19 08/06/19 12:32 12:32 12:32 WBC RBC Hgb Hct MCV MCH MCHC RDW Std Deviation RDW Coeff of Katlin Plt Count MPV Immature Gran % (Auto) Neut % (Auto) Lymph % (Auto) Carroll % (Auto) Eos % (Auto) Baso % (Auto) Immature Gran # (Auto) Neut # (Auto) Lymph # (Auto) Carroll # (Auto) Eos # (Auto) Baso # (Auto) Peripher Smr Path Cons ESR Sample Site POC pH POC pCO2 POC pO2 POC HCO3 POC Total CO2 POC Base Excess POC ABG O2 Sat Arben Test O2 Delivery Device Sodium 141 Potassium 4.1 Chloride 110 H Carbon Dioxide 19 L Anion Gap 12.0 H BUN 31 H Creatinine 1.42 H Est Cr Clr Drug Dosing 56.4 Est GFR ( Amer) 56.4 Est GFR (Non-Af Amer) 48.7 BUN/Creatinine Ratio 21.8 H Glucose 222 H POC Glucose (other) Lactate 6.1 H* Calcium 8.5 Phosphorus 3.3 Magnesium 2.3 Total Bilirubin 0.7 AST 60 H ALT 96 H Alkaline Phosphatase 81 Lactate Dehydrogenase Troponin I C-Reactive Protein NT-Pro-B Natriuret Pep 3567 H Total Protein 5.8 L Albumin 2.9 L Globulin 2.9 Albumin/Globulin Ratio 1.0 Procalcitonin 103.68 H Nasal Screen MRSA (PCR) Random Vancomycin Mycoplasma pneumon IgG Mycoplasma pneumon IgM BCR/abl t(9;22) (FISH) Misc Genetic Test 08/06/19 08/06/19 08/06/19 12:32 12:35 12:36 WBC RBC Hgb Hct MCV MCH MCHC RDW Std Deviation RDW Coeff of Katlin Plt Count MPV Immature Gran % (Auto) Neut % (Auto) Lymph % (Auto) Carroll % (Auto) Eos % (Auto) Baso % (Auto) Immature Gran # (Auto) Neut # (Auto) Lymph # (Auto) Carroll # (Auto) Eos # (Auto) Baso # (Auto) Peripher Smr Path Cons ESR 16 H Sample Site POC pH POC pCO2 POC pO2 POC HCO3 POC Total CO2 POC Base Excess POC ABG O2 Sat Arben Test O2 Delivery Device Sodium Potassium Chloride Carbon Dioxide Anion Gap BUN Creatinine Est Cr Clr Drug Dosing Est GFR ( Amer) Est GFR (Non-Af Amer) BUN/Creatinine Ratio Glucose POC Glucose (other) 220 H Lactate Calcium Phosphorus Magnesium Total Bilirubin AST ALT Alkaline Phosphatase Lactate Dehydrogenase Troponin I C-Reactive Protein NT-Pro-B Natriuret Pep Total Protein Albumin Globulin Albumin/Globulin Ratio Procalcitonin Nasal Screen MRSA (PCR) Random Vancomycin 13.0 Mycoplasma pneumon IgG Mycoplasma pneumon IgM BCR/abl t(9;22) (FISH) Misc Genetic Test 08/06/19 08/06/19 08/06/19 12:36 13:41 13:41 WBC 75.41 H* RBC 4.53 L Hgb 13.1 L Hct 39.1 L MCV 86.3 MCH 28.9 MCHC 33.5 RDW Std Deviation 45.1 RDW Coeff of Katlin 14.3 Plt Count 279 MPV 9.5 Immature Gran % (Auto) 2.5 Neut % (Auto) 94.3 Lymph % (Auto) 0.4 Carroll % (Auto) 2.7 Eos % (Auto) 0.0 Baso % (Auto) 0.1 Immature Gran # (Auto) 1.85 H Neut # (Auto) 71.08 H Lymph # (Auto) 0.33 L Carroll # (Auto) 2.04 H Eos # (Auto) 0.01 Baso # (Auto) 0.10 Peripher Smr Path Cons Cancelled ESR Sample Site POC pH POC pCO2 POC pO2 POC HCO3 POC Total CO2 POC Base Excess POC ABG O2 Sat Arben Test O2 Delivery Device Sodium Potassium Chloride Carbon Dioxide Anion Gap BUN Creatinine Est Cr Clr Drug Dosing Est GFR ( Amer) Est GFR (Non-Af Amer) BUN/Creatinine Ratio Glucose POC Glucose (other) Lactate Calcium Phosphorus Magnesium Total Bilirubin AST ALT Alkaline Phosphatase Lactate Dehydrogenase Troponin I C-Reactive Protein 7.62 H NT-Pro-B Natriuret Pep Total Protein Albumin Globulin Albumin/Globulin Ratio Procalcitonin Nasal Screen MRSA (PCR) Random Vancomycin Mycoplasma pneumon IgG Mycoplasma pneumon IgM BCR/abl t(9;22) (FISH) Misc Genetic Test 08/06/19 08/06/19 08/06/19 13:41 14:03 14:55 WBC RBC Hgb Hct MCV MCH MCHC RDW Std Deviation RDW Coeff of Katlin Plt Count MPV Immature Gran % (Auto) Neut % (Auto) Lymph % (Auto) Carroll % (Auto) Eos % (Auto) Baso % (Auto) Immature Gran # (Auto) Neut # (Auto) Lymph # (Auto) Carroll # (Auto) Eos # (Auto) Baso # (Auto) Peripher Smr Path Cons ESR Sample Site L Radial POC pH 7.35 POC pCO2 32 L POC pO2 87 POC HCO3 18 L POC Total CO2 19 L POC Base Excess -8.0 POC ABG O2 Sat 96.0 H Arben Test Pass O2 Delivery Device Cannula Sodium Potassium Chloride Carbon Dioxide Anion Gap BUN Creatinine Est Cr Clr Drug Dosing Est GFR ( Amer) Est GFR (Non-Af Amer) BUN/Creatinine Ratio Glucose POC Glucose (other) Lactate Calcium Phosphorus Magnesium Total Bilirubin AST ALT Alkaline Phosphatase Lactate Dehydrogenase 216 Troponin I C-Reactive Protein NT-Pro-B Natriuret Pep Total Protein Albumin Globulin Albumin/Globulin Ratio Procalcitonin Nasal Screen MRSA (PCR) Random Vancomycin Mycoplasma pneumon IgG Mycoplasma pneumon IgM BCR/abl t(9;22) (FISH) Pending [facility] Genetic Test Pending 08/06/19 08/06/19 14:55 15:02 WBC RBC Hgb Hct MCV MCH MCHC RDW Std Deviation RDW Coeff of Katlin Plt Count MPV Immature Gran % (Auto) Neut % (Auto) Lymph % (Auto) Carroll % (Auto) Eos % (Auto) Baso % (Auto) Immature Gran # (Auto) Neut # (Auto) Lymph # (Auto) Carroll # (Auto) Eos # (Auto) Baso # (Auto) Peripher Smr Path Cons ESR Sample Site POC pH POC pCO2 POC pO2 POC HCO3 POC Total CO2 POC Base Excess POC ABG O2 Sat Arben Test O2 Delivery Device Sodium Potassium Chloride Carbon Dioxide Anion Gap BUN Creatinine Est Cr Clr Drug Dosing Est GFR ( Amer) Est GFR (Non-Af Amer) BUN/Creatinine Ratio Glucose POC Glucose (other) 242 H Lactate Calcium Phosphorus Magnesium Total Bilirubin AST ALT Alkaline Phosphatase Lactate Dehydrogenase Troponin I 0.120 H* C-Reactive Protein NT-Pro-B Natriuret Pep Total Protein Albumin Globulin Albumin/Globulin Ratio Procalcitonin Nasal Screen MRSA (PCR) Random Vancomycin Mycoplasma pneumon IgG Mycoplasma pneumon IgM BCR/abl t(9;22) (FISH) [facility] Genetic Test Diagnostic Findings XR chest 1V portable CLINICAL HISTORY: 73 years-old Male presenting with Hypoxic respiratory failure. TECHNIQUE: Portable upright AP view of the chest was obtained. COMPARISON: 10/22/2014. FINDINGS: Left subclavian central venous catheter terminates in the mid SVC. Cardiomediastinal silhouette normal allowing for mildly low lung volumes and hypoventilatory changes. Bandlike opacity at the left lung base. No other focal opacity. Mild pulmonary vessel prominence. No large effusion or pneumothorax. Degenerative changes of the thoracic spine. Upper abdomen normal. IMPRESSION: 1. Mildly low lung volumes with hypoventilatory changes and left basilar atelectasis. 2. Mild volume overload may be present. No prasanth pulmonary edema or focal infiltrate. 3. Appropriately positioned central venous catheter. No pneumothorax. CT ABDOMEN/PELVIS IMPRESSION: 1. No evidence of bowel obstruction. No evidence of free air 2. Normal appendix. No evidence of acute diverticulitis 3. No evidence of intra-abdominal abscess 4. Fat-containing umbilical and left inguinal hernias 5. Elevation right hemidiaphragm. Trace pleural effusions. Dependent atelectatic changes with lower lobe bronchial wall thickening and mucous plugging Code Status & VTE Plan Code Status full code VTE Prophylaxis Plan VTE Prophylaxis will be ordered: Yes PG Care Time/CCT Total # of Minutes Spent Total Time Spent with Patient: Total time spent is greater than 50% in coordination of care (as documented) at patient's floor/unit and/or counseling patient:
[2019-08-06] MEDS: INSULIN ASPART 100 UNITS/ML 3 ML PEN SC SCH ×2 (17:18→20:10)
[2019-08-06] MEDS: ENOXAPARIN INJ 40 MG/0.4 ML SYR SQ SCH (17:18)
--- NOTE | 2019-08-06 17:51 | CT Scan Report ---
CT abd pelvis oral con only CLINICAL HISTORY: Septic shock, elevated white count unknown source COMPARISON STUDY: None. TECHNIQUE: The patient was scanned following administration of dilute oral contrast. No intravenous c ontrast was administered. A dose lowering technique was utilized adhering to the principles of ALARA . CT DOSE: 1488.88 mGy.cm FINDINGS: Lower chest: There are dependent atelectatic changes. There is lower lobe bronchial wall thickening a nd mucous plugging there is mild elevation right hemidiaphragm. There are trace pleural effusions. Liver: No focal hepatic masses are visualized on this noncontrast study Gallbladder: There is increased density of the gallbladder consistent with vicarious excretion of con trast Spleen: Normal in size and attenuation. Pancreas: Unremarkable. Adrenal glands: Unremarkable. Kidneys: There is bilateral renal contrast excretion secondary to a contrast-enhanced outside CT scan performed earlier in the day. No solid renal masses are visualized. There is no hydronephrosis. Ther e is bilateral perinephric stranding. Bowel: There are no transition zone to indicate bowel obstruction. There is no evidence of acute dive rticulitis. The appendix appears normal. Peritoneum: There is no significant ascites. There is no free intraperitoneal air. There is a promine nt fat-containing umbilical hernia. There is a fat-containing left inguinal hernia. Vasculature: The abdominal aorta is normal in course and caliber. Adenopathy: None. Pelvic viscera: There is a joint Lagunas catheter. The bladder is decompressed. Skeletal structures: There is ankylosis the dorsal spine. No destructive lesions are visualized. IMPRESSION: 1. No evidence of bowel obstruction. No evidence of free air 2. Normal appendix. No evidence of acute diverticulitis 3. No evidence of intra-abdominal abscess 4. Fat-containing umbilical and left inguinal hernias 5. Elevation right hemidiaphragm. Trace pleural effusions. Dependent atelectatic changes with lower l obe bronchial wall thickening and mucous plugging Electronically signed by: Jorge Hinton M.D. 08/06/2019 5:50 PM
[2019-08-06] MEDS: PIPERACILLIN/TAZOBACTAM 4.5 GM in DEXTROSE 5% 100 ML IV SCH (18:02)
[2019-08-06 18:51] LABS: Appearance Urine Clear (Clear); Bacteria Urine Automated Negative (Negative); Bilirubin Urine Negative (Negative); Blood Urine 3+ (Negative); Cast Urine Automated 0 /lpf (0-5); Color Urine Yellow; Glucose Urine UA Negative (Negative); Ketones Urine Negative (Negative); Leukocyte Esterase Urine Negative (Negative); Nitrite Urine Negative (Negative); Protein Urine Negative (Negative); Specific Gravity Urine 1.022 (1.000-1.030); Urobilinogen Urine Negative (Negative)
[2019-08-06] MEDS ORDERED: HYDROCORTISONE SOD SUCCINATE 100 MG/2 ML VIAL IV STA (21:24)
[2019-08-06] MEDS ORDERED: HYDROCORTISONE SOD 200 MG in SYRINGE 0 ML IV ONE (21:45)
[2019-08-06] MEDS ORDERED: [UNRECOGNIZED DRUG - OTHER] IV ONE (22:00)
[2019-08-06] MEDS ORDERED: COSYNTROPIN IV ONE (22:00)
[2019-08-07] MEDS: PIPERACILLIN/TAZOBACTAM 4.5 GM in DEXTROSE 5% 100 ML IV SCH ×3 (02:08→17:35)
[2019-08-07 05:04] LABS: Albumin Level 2.3 gm/dl (3.4-5.0); Creatinine Clr Calc Pharmacy 72.8 ml/min; Est GFR (African American) 76.8; Est GFR (Non-African American) 66.2; Magnesium 2.2 mg/dl (1.8-2.4); Potassium 3.9 mmol/L (3.5-5.1)
[2019-08-07 05:08] LABS: Bilirubin Direct 0.2 mg/dl (0-0.2); Bilirubin,Total 0.4 mg/dl (0.2-1); Total Protein 5.3 gm/dl (6.4-8.2)
[2019-08-07 05:17] LABS: Hematocrit (blood only) 36.6 % (42-52); Hemoglobin 12.3 g/dL (14.0-18.0); Mean Corpuscular Hemoglobin 29.2 pg (25-34); Mean Corpuscular Hgb Conc 33.6 g/dL (32-36); Mean Corpuscular Volume 86.9 fL (80-100); Mean Platelet Volume 9.2 fL (7.4-10.4); Platelet Count 176 K/uL (130-400); RDW Coefficient of Variation 14.5 % (11.5-14.5); RDW Standard Deviation 46.2 fL (36.4-46.3); Red Blood Count 4.21 M/uL (4.7-6.1); White Blood Count 58.72 K/uL (4.8-10.8)
[2019-08-07 05:18] LABS: Basophils # (auto) 0.04 K/uL (0-0.2); Basophils % (auto) 0.1 %; Echinocytes 1+; Eosinophils # (auto) 0.04 K/uL (0-0.5); Eosinophils % (auto) 0.1 %; Immature Granulocytes # (auto) 0.78 K/uL (0.00-0.02); Immature Granulocytes % (auto) 1.3 %; Lymphocytes # (auto) 0.54 K/uL (1.2-3.4); Lymphocytes % (auto) 0.9 %; Monocytes # (auto) 2.65 K/uL (0.11-0.59); Monocytes % (auto) 4.5 %; Neutrophils # (auto) 54.67 K/uL (1.4-6.5); Neutrophils % (auto) 93.1 %
[2019-08-07 06:10] LABS: Estimated Average Glucose 137 mg/dl; Hemoglobin A1C 6.4 % (4.5-5.6)
[2019-08-07] MEDS ORDERED: PERFLUTREN LIPID MICROSPHERE (DEFINITY) IV ONE (07:48)
[2019-08-07] MEDS ORDERED: VANCOMYCIN HCL 1,250 MG in SODIUM CHLORIDE 0.9% 250 ML IV SCH (08:00)
--- NOTE | 2019-08-07 08:09 | Critical Care Progress Note ---
Date of Service August 07, 2019 Assessment & Plan (1) COPD (chronic obstructive pulmonary disease): History of COPD, not in exacerbation. Continue with inhaled therapy. (2) Asthma: (3) Bronchitis: (4) Sepsis: (5) Septic shock: (6) Neutrophilia: (7) Hypotension: (8) Acute hypoxemic respiratory failure: (9) Shock circulatory: No clear source of infection although patients PCT is 103. ESR 16 and CRP: 7. CXR, CT abd and pelvis along with UA doesn't show any clear source of infection. ? reactive to underlying/incovered malignancy? C/w broad spectrum antibiotics for the time being. BiPAP qhs. If there is any deterioration in clinical status will intubate the patient. Yesterday patient's initial random cortisol level was only 17 which is expected to be higher and the patient was in shock. Cosyntropin test was ordered. Repeat a cortisol level was high at greater than 150. It seems hydrocortisone was given along with cosyntropin and then cortisol level was drawn. The test is not helpful. Patient already got 200 MCG of hydrocortisone on 08/06/2019. Will hold off to give any more hydrocortisone. Reason Critically Ill: 73 year old man here with 2 weeks of URI symptoms. Has continued to have worsening cough and shortness of breath. Had some chest pain last night. Neuro: Intact, no deficits CAM-ICU negative WIll continue to monitor VERY HARD OF HEARING Cardiovascular: Off vasopressors since evening 08/06/19, Initial cortisol was 17.7 Cosyntropin test was ordered. Patient got one dose of Hydrocortisone Not tachycardic, no chest pain currently Troponin trending down. EKG: NSR, RBBB, [place]:198, QTc 462 Bedside ultrasound showing good heart squeeze and no asymmetry, will order formal echo Distributive shock septic vs Adrenal insufficiency Hx of CAD with stent placement Respiratory Oxygenating well on nasal cannula set at 2 L of oxygen No respiratory distress. More comfortable GI: No GI symptoms No abdominal pain or tenderness on exam WIll get a CT abdomen to rule out abdominal source ID: Concerned for septic shock unknown cause Lactate 6.1 --> 1.6 Procal >120 --> trending down CXR, CT abd pelvis doesn't show any clear source Awaiting blood cultures and urinary cultures Possible bacteremia/fungemia HEME: White count 82.24 --> 54 Peripheral smear concerning for myeloproliferative disease ordered LDH BCR-ABL Hematology consulted No indication for Leukopheresis Dipso: Monitor, if clinically stable can DG to medical floor later today DVT PPx: Lovenox Diet: Heart healthy Code Status: Full (10) Neutrophilic leukocytosis: Subjective Patient seen and examined at bedside. No acute distress, no adverse events overnight. Patient has been off pressors since yesterday. States that he is feeling way better than yesterday. Denies any chest pain, no shortness of breath, no headache, no nausea, no vomiting. Occasional cough. Not bringing up any phlegm. Denies any belly pain. Review of Systems Review of Systems: All systems reviewed & are unremarkable except as noted in HPI & below Physical Exam Physical Exam: Constitutional: No acute distress HEENT: EOMI, PERRLA Respiratory system: Decreased air entry bilaterally, mild crackles bilateral lower lobe, no wheeze, no rhonchi CVS: S1-S2 positive, no murmurs or gallops Abdomen: Soft, nontender, nondistended, positive bowel sounds x4, obese Extremities: +2 pulses bilaterally radialis/ dorsalis pedis, +1 edema bilaterally, no cyanosis Neuro: Awake alert oriented x3 Psych: Normal mood and affect G/U: Positive Lagunas Lines: Left subclavian Lymphatic: no cervical or axillary lymphadenopathy Results & Data Vital Signs (Past 12 Hours) Vital Signs Temp Pulse Resp BP Pulse Ox 08/07/19 06:00 61 20 111/71 100 08/07/19 05:00 64 20 97/74 L 100 08/07/19 04:00 36.7 C 63 20 104/67 100 08/07/19 03:00 65 19 101/68 100 08/07/19 02:00 78 16 105/64 100 08/07/19 01:00 66 21 110/58 L 99 08/07/19 00:00 36.5 C 73 24 102/63 98 08/06/19 22:00 73 26 H 97/64 L 99 08/06/19 21:52 72 24 97 08/06/19 21:00 76 23 110/67 97 Laboratory Results 08/07/19 04:36 08/07/19 04:36 Intake & Output 08/05/19 08/06/19 08/07/19 08/08/19 06:59 06:59 06:59 06:59 Intake Total 2712.407 / 2712.407 1.813 / 1.813 Output Total 1251 / 1251 Balance 1461.407 / 1461.407 1.813 / 1.813 Weight 108.4 kg PG Care Time/CCT Total # of Minutes Spent Total Time Spent with Patient: Total time spent is greater than 50% in coordination of care (as documented) at patient's floor/unit and/or counseling patient: Critical Care Time: Yes Total Critical Care Time: 40
[2019-08-07] MEDS: ENOXAPARIN INJ 40 MG/0.4 ML SYR SQ SCH (08:18)
[2019-08-07] MEDS: INSULIN ASPART 100 UNITS/ML 3 ML PEN SC SCH ×4 (08:19→20:38)
[2019-08-07] MEDS ORDERED: AZITHROMYCIN 500 MG in DEXTROSE 5% 250 ML IV SCH (09:00)
[2019-08-07] MEDS ORDERED: INSULIN GLARGINE SOLOSTAR 100 UNITS/ML 3 ML PEN SC ONE ×2 (10:30→21:00)
--- NOTE | 2019-08-07 10:58 | Hospitalist Progress Note ---
Date of Service August 07, 2019 Assessment & Plan (1) Acute hypoxemic respiratory failure: currently stable on 2L NC no clear pneumonia on CXR today breathing well today, no wheezing, minimal cough, no rhonchi will down grade out of ICU (2) Septic shock: unclear etiology awaiting echo to look at LV EF he is titrated off of Levophed for over 12 hours, shock resolved blood cultures with no growth no obvious pneumonia on CXR CTA chest from [facility] with left lower lobe [id number] nodular density CT abdomen/pelvis without infection/inflammation urine appear clean Zithromax, Zosyn, Vancomycin for today, taper tomorrow WBC down to 58k, procalcitonin down but still markedly elevated (3) COPD (chronic obstructive pulmonary disease): no obvious wheezing on exam, not in much distress continue nebulizers (4) SHITAL (acute kidney injury): possible SHITAL as Cr is 1.4, prior Cr in system was 1.0 resolved with fluids and pressor support, Cr down to 1.1 (5) Lactic acidosis: coming down appropriately with adequate volume and pressor support last draw was 1.6, thus it is resolved (6) Hyperglycemia: could be due to steroids HbA1c is 6.4% continue Novolog SS (7) Prediabetes: HbA1c is 6.4% will educate him on prediabetes, low carbohydrate diet per the patient he dropped from 279lb to 212lbs in the past few months with diet (8) Neutrophilic leukocytosis: down to 58k today from 75k yesterday all neutrophils on the differential will cancel the hematology consult as there is no further work up at this time (9) CAD (coronary artery disease): h/o stent placed per patient will check lipid profile in the AM, should be on statin will start on Aspirin Subjective patient feeling great this morning sitting up in chair, ambulating in the room no fever or chills, minimal dyspnea, minimal cough no abdominal pain, no dysuria reviewed labs, WBC down to 58k from 75k, all neutrophils in differential Cr improved to 1.1, electrolytes stable glucose still high occasionally but HbA1c is 6.4% no growth on blood cultures d/w ICU, he is off Levophed since yesterday afternoon, okay to downgrade out of ICU patient ate all his breakfast this AM, last BM was prior to admission Review of Systems Review of Systems: All systems reviewed & are unremarkable except as noted in HPI & below Physical Exam Constitutional: WD/WN, vitals as above + overweight; no acute distress Eyes: PERRL, conjunctivae normal, anicteric sclerae ENMT: external ear and nose normal, oropharynx normal Neck: trachea midline, no thyromegaly Respiratory: normal respiratory effort, lungs clear to auscultation Cardiovascular: RRR, no murmur, no edema Gastrointestinal (Abdomen): normal bowel sounds, soft, nontender, no hepatosplenomegaly Musculoskeletal: no cyanosis or clubbing, extremities motor strength 5/5 Skin: no rashes, warm and dry Neurologic: patellar DTR's 2+ bilat, sensation intact and PERRL, EOMI, accommodation nl, no face palsy, no dysarthria Psychiatric: A+Ox3, euthymic affect Lymphatic: no cervical or axillary lymphadenopathy Results & Data Vital Signs (Past 12 Hours) Vital Signs Temp Pulse Resp BP Pulse Ox 08/07/19 09:00 74 19 106/63 95 08/07/19 08:02 64 20 121/78 92 08/07/19 07:00 63 23 115/71 100 08/07/19 06:00 61 20 111/71 100 08/07/19 05:00 64 20 97/74 L 100 08/07/19 04:00 36.7 C 63 20 104/67 100 08/07/19 03:00 65 19 101/68 100 08/07/19 02:00 78 16 105/64 100 08/07/19 01:00 66 21 110/58 L 99 08/07/19 00:00 36.5 C 73 24 102/63 98 Laboratory Results Laboratory Results - last 24 hr 08/06/19 08/06/19 08/06/19 12:00 12:22 12:32 WBC 82.24 H* RBC 4.81 Hgb 13.8 L Hct 41.7 L MCV 86.7 MCH 28.7 MCHC 33.1 RDW Std Deviation 44.6 RDW Coeff of [place] 14.2 Plt Count 275 MPV 9.8 Immature Gran % (Auto) 2.8 Neut % (Auto) 93.7 Lymph % (Auto) 0.5 [place] % (Auto) 2.9 Eos % (Auto) 0.0 Baso % (Auto) 0.1 Immature Gran # (Auto) 2.27 H Neut # (Auto) 77.08 H Lymph # (Auto) 0.42 L [place] # (Auto) 2.36 H Eos # (Auto) 0.03 Baso # (Auto) 0.08 Echinocytes Peripher Smr Path Cons ESR Sample Site POC pH POC pCO2 POC pO2 POC HCO3 POC Total CO2 POC Base Excess POC ABG O2 Sat Arben Test O2 Delivery Device Sodium Potassium Chloride Carbon Dioxide Anion Gap BUN Creatinine Est Cr Clr Drug Dosing Est GFR ( Amer) Est GFR (Non-Af Amer) BUN/Creatinine Ratio Glucose POC Glucose POC Glucose (other) Estimat Average Glucose Hemoglobin A1c Lactate Calcium Phosphorus Magnesium Ferritin Total Bilirubin Direct Bilirubin AST ALT Alkaline Phosphatase Lactate Dehydrogenase Total Creatine Kinase Troponin I C-Reactive Protein NT-Pro-B Natriuret Pep Total Protein Albumin Globulin Albumin/Globulin Ratio Procalcitonin Random Cortisol ACTH Urine Color Urine Appearance Urine pH Ur Specific [place] Urine Protein Urine Glucose (UA) Urine Ketones Urine Blood Urine Nitrite Urine Bilirubin Urine Urobilinogen Ur Leukocyte Esterase Urine WBC (Auto) Urine RBC (Auto) U Hyaline Cast (Auto) U Epithel Cells (Auto) Urine Bacteria (Auto) Nasal Screen MRSA (PCR) Negative Random Vancomycin Urine Legionella Ag Mycoplasma pneumon IgG Pending Mycoplasma pneumon IgM Pending BCR/abl t(9;22) (FISH) Misc Genetic Test 08/06/19 08/06/19 08/06/19 12:32 12:32 12:32 WBC RBC Hgb Hct MCV MCH MCHC RDW Std Deviation RDW Coeff of [place] Plt Count MPV Immature Gran % (Auto) Neut % (Auto) Lymph % (Auto) [place] % (Auto) Eos % (Auto) Baso % (Auto) Immature Gran # (Auto) Neut # (Auto) Lymph # (Auto) [place] # (Auto) Eos # (Auto) Baso # (Auto) Echinocytes Peripher Smr Path Cons ESR Sample Site POC pH POC pCO2 POC pO2 POC HCO3 POC Total CO2 POC Base Excess POC ABG O2 Sat Arben Test O2 Delivery Device Sodium 141 Potassium 4.1 Chloride 110 H Carbon Dioxide 19 L Anion Gap 12.0 H BUN 31 H Creatinine 1.42 H Est Cr Clr Drug Dosing 56.4 Est GFR ( Amer) 56.4 Est GFR (Non-Af Amer) 48.7 BUN/Creatinine Ratio 21.8 H Glucose 222 H POC Glucose POC Glucose (other) Estimat Average Glucose Hemoglobin A1c Lactate 6.1 H* Calcium 8.5 Phosphorus 3.3 Magnesium 2.3 Ferritin Total Bilirubin 0.7 Direct Bilirubin AST 60 H ALT 96 H Alkaline Phosphatase 81 Lactate Dehydrogenase Total Creatine Kinase Troponin I C-Reactive Protein NT-Pro-B Natriuret Pep 3567 H Total Protein 5.8 L Albumin 2.9 L Globulin 2.9 Albumin/Globulin Ratio 1.0 Procalcitonin 103.68 H Random Cortisol ACTH Urine Color Urine Appearance Urine pH Ur Specific [place] Urine Protein Urine Glucose (UA) Urine Ketones Urine Blood Urine Nitrite Urine Bilirubin Urine Urobilinogen Ur Leukocyte Esterase Urine WBC (Auto) Urine RBC (Auto) U Hyaline Cast (Auto) U Epithel Cells (Auto) Urine Bacteria (Auto) Nasal Screen MRSA (PCR) Random Vancomycin Urine Legionella Ag Mycoplasma pneumon IgG Mycoplasma pneumon IgM BCR/abl t(9;22) (FISH) Misc Genetic Test 08/06/19 08/06/19 08/06/19 12:32 12:35 12:36 WBC RBC Hgb Hct MCV MCH MCHC RDW Std Deviation RDW Coeff of [place] Plt Count MPV Immature Gran % (Auto) Neut % (Auto) Lymph % (Auto) [place] % (Auto) Eos % (Auto) Baso % (Auto) Immature Gran # (Auto) Neut # (Auto) Lymph # (Auto) [place] # (Auto) Eos # (Auto) Baso # (Auto) Echinocytes Peripher Smr Path Cons ESR 16 H Sample Site POC pH POC pCO2 POC pO2 POC HCO3 POC Total CO2 POC Base Excess POC ABG O2 Sat Arben Test O2 Delivery Device Sodium Potassium Chloride Carbon Dioxide Anion Gap BUN Creatinine Est Cr Clr Drug Dosing Est GFR ( Amer) Est GFR (Non-Af Amer) BUN/Creatinine Ratio Glucose POC Glucose POC Glucose (other) 220 H Estimat Average Glucose Hemoglobin A1c Lactate Calcium Phosphorus Magnesium Ferritin Total Bilirubin Direct Bilirubin AST ALT Alkaline Phosphatase Lactate Dehydrogenase Total Creatine Kinase Troponin I C-Reactive Protein NT-Pro-B Natriuret Pep Total Protein Albumin Globulin Albumin/Globulin Ratio Procalcitonin Random Cortisol ACTH Urine Color Urine Appearance Urine pH Ur Specific [place] Urine Protein Urine Glucose (UA) Urine Ketones Urine Blood Urine Nitrite Urine Bilirubin Urine Urobilinogen Ur Leukocyte Esterase Urine WBC (Auto) Urine RBC (Auto) U Hyaline Cast (Auto) U Epithel Cells (Auto) Urine Bacteria (Auto) Nasal Screen MRSA (PCR) Random Vancomycin 13.0 Urine Legionella Ag Mycoplasma pneumon IgG Mycoplasma pneumon IgM BCR/abl t(9;22) (FISH) [facility] [place]/06/19 08/06/19 08/06/19 12:36 13:41 13:41 WBC 75.41 H* RBC 4.53 L Hgb 13.1 L Hct 39.1 L MCV 86.3 MCH 28.9 MCHC 33.5 RDW Std Deviation 45.1 RDW Coeff of [place] 14.3 Plt Count 279 MPV 9.5 Immature Gran % (Auto) 2.5 Neut % (Auto) 94.3 Lymph % (Auto) 0.4 [place] % (Auto) 2.7 Eos % (Auto) 0.0 Baso % (Auto) 0.1 Immature Gran # (Auto) 1.85 H Neut # (Auto) 71.08 H Lymph # (Auto) 0.33 L [place] # (Auto) 2.04 H Eos # (Auto) 0.01 Baso # (Auto) 0.10 Echinocytes Peripher Smr Path Cons Cancelled ESR Sample Site POC pH POC pCO2 POC pO2 POC HCO3 POC Total CO2 POC Base Excess POC ABG O2 Sat Arben Test O2 Delivery Device Sodium Potassium Chloride Carbon Dioxide Anion Gap BUN Creatinine Est Cr Clr Drug Dosing Est GFR ( Amer) Est GFR (Non-Af Amer) BUN/Creatinine Ratio Glucose POC Glucose POC Glucose (other) Estimat Average Glucose Hemoglobin A1c Lactate Calcium Phosphorus Magnesium Ferritin Total Bilirubin Direct Bilirubin AST ALT Alkaline Phosphatase Lactate Dehydrogenase Total Creatine Kinase Troponin I C-Reactive Protein 7.62 H NT-Pro-B Natriuret Pep Total Protein Albumin Globulin Albumin/Globulin Ratio Procalcitonin Random Cortisol ACTH Urine Color Urine Appearance Urine pH Ur Specific [place] Urine Protein Urine Glucose (UA) Urine Ketones Urine Blood Urine Nitrite Urine Bilirubin Urine Urobilinogen Ur Leukocyte Esterase Urine WBC (Auto) Urine RBC (Auto) U Hyaline Cast (Auto) U Epithel Cells (Auto) Urine Bacteria (Auto) Nasal Screen MRSA (PCR) Random Vancomycin Urine Legionella Ag Mycoplasma pneumon IgG Mycoplasma pneumon IgM BCR/abl t(9;22) (FISH) [facility] [place] 08/06/19 08/06/19 08/06/19 13:41 14:03 14:55 WBC RBC Hgb Hct MCV MCH MCHC RDW Std Deviation RDW Coeff of [place] Plt Count MPV Immature Gran % (Auto) Neut % (Auto) Lymph % (Auto) [place] % (Auto) Eos % (Auto) Baso % (Auto) Immature Gran # (Auto) Neut # (Auto) Lymph # (Auto) [place] # (Auto) Eos # (Auto) Baso # (Auto) Echinocytes Peripher Smr Path Cons ESR Sample Site L Radial POC pH 7.35 POC pCO2 32 L POC pO2 87 POC HCO3 18 L POC Total CO2 19 L POC Base Excess -8.0 POC ABG O2 Sat 96.0 H Arben Test Pass O2 Delivery Device Cannula Sodium Potassium Chloride Carbon Dioxide Anion Gap BUN Creatinine Est Cr Clr Drug Dosing Est GFR ( Amer) Est GFR (Non-Af Amer) BUN/Creatinine Ratio Glucose POC Glucose POC Glucose (other) Estimat Average Glucose Hemoglobin A1c Lactate Calcium Phosphorus Magnesium Ferritin Total Bilirubin Direct Bilirubin AST ALT Alkaline Phosphatase Lactate Dehydrogenase 216 Total Creatine Kinase Troponin I C-Reactive Protein NT-Pro-B Natriuret Pep Total Protein Albumin Globulin Albumin/Globulin Ratio Procalcitonin Random Cortisol ACTH Urine Color Urine Appearance Urine pH Ur Specific [place] Urine Protein Urine Glucose (UA) Urine Ketones Urine Blood Urine Nitrite Urine Bilirubin Urine Urobilinogen Ur Leukocyte Esterase Urine WBC (Auto) Urine RBC (Auto) U Hyaline Cast (Auto) U Epithel Cells (Auto) Urine Bacteria (Auto) Nasal Screen MRSA (PCR) Random Vancomycin Urine Legionella Ag Mycoplasma pneumon IgG Mycoplasma pneumon IgM BCR/abl t(9;22) (FISH) Pending [facility] [place] Pending 08/06/19 08/06/19 08/06/19 14:55 15:02 17:09 WBC RBC Hgb Hct MCV MCH MCHC RDW Std Deviation RDW Coeff of [place] Plt Count MPV Immature Gran % (Auto) Neut % (Auto) Lymph % (Auto) [place] % (Auto) Eos % (Auto) Baso % (Auto) Immature Gran # (Auto) Neut # (Auto) Lymph # (Auto) [place] # (Auto) Eos # (Auto) Baso # (Auto) Echinocytes Peripher Smr Path Cons ESR Sample Site POC pH POC pCO2 POC pO2 POC HCO3 POC Total CO2 POC Base Excess POC ABG O2 Sat Arben Test O2 Delivery Device Sodium Potassium Chloride Carbon Dioxide Anion Gap BUN Creatinine Est Cr Clr Drug Dosing Est GFR ( Amer) Est GFR (Non-Af Amer) BUN/Creatinine Ratio Glucose POC Glucose POC Glucose (other) 242 H 265 H Estimat Average Glucose Hemoglobin A1c Lactate Calcium Phosphorus Magnesium Ferritin Total Bilirubin Direct Bilirubin AST ALT Alkaline Phosphatase Lactate Dehydrogenase Total Creatine Kinase Troponin I 0.120 H* C-Reactive Protein NT-Pro-B Natriuret Pep Total Protein Albumin Globulin Albumin/Globulin Ratio Procalcitonin Random Cortisol ACTH Urine Color Urine Appearance Urine pH Ur Specific [place] Urine Protein Urine Glucose (UA) Urine Ketones Urine Blood Urine Nitrite Urine Bilirubin Urine Urobilinogen Ur Leukocyte Esterase Urine WBC (Auto) Urine RBC (Auto) U Hyaline Cast (Auto) U Epithel Cells (Auto) Urine Bacteria (Auto) Nasal Screen MRSA (PCR) Random Vancomycin Urine Legionella Ag Mycoplasma pneumon IgG Mycoplasma pneumon IgM BCR/abl t(9;22) (FISH) Misc Genetic Test 08/06/19 08/06/19 08/06/19 17:23 17:23 18:04 WBC RBC Hgb Hct MCV MCH MCHC RDW Std Deviation RDW Coeff of [place] Plt Count MPV Immature Gran % (Auto) Neut % (Auto) Lymph % (Auto) [place] % (Auto) Eos % (Auto) Baso % (Auto) Immature Gran # (Auto) Neut # (Auto) Lymph # (Auto) [place] # (Auto) Eos # (Auto) Baso # (Auto) Echinocytes Peripher Smr Path Cons ESR Sample Site POC pH POC pCO2 POC pO2 POC HCO3 POC Total CO2 POC Base Excess POC ABG O2 Sat Arben Test O2 Delivery Device Sodium Potassium Chloride Carbon Dioxide Anion Gap BUN Creatinine Est Cr Clr Drug Dosing Est GFR ( Amer) Est GFR (Non-Af Amer) BUN/Creatinine Ratio Glucose POC Glucose 249 H POC Glucose (other) Estimat Average Glucose Hemoglobin A1c Lactate Calcium Phosphorus Magnesium Ferritin Total Bilirubin Direct Bilirubin AST ALT Alkaline Phosphatase Lactate Dehydrogenase Total Creatine Kinase Troponin I C-Reactive Protein NT-Pro-B Natriuret Pep Total Protein Albumin Globulin Albumin/Globulin Ratio Procalcitonin Random Cortisol ACTH Urine Color Yellow Urine Appearance Clear Urine pH 5.0 Ur Specific [place] 1.022 Urine Protein Negative Urine Glucose (UA) Negative Urine Ketones Negative Urine Blood 3+ H Urine Nitrite Negative Urine Bilirubin Negative Urine Urobilinogen Negative Ur Leukocyte Esterase Negative Urine WBC (Auto) 1-5 Urine RBC (Auto) 5-10 H U Hyaline Cast (Auto) 0 U Epithel Cells (Auto) 5-10 H Urine Bacteria (Auto) Negative Nasal Screen MRSA (PCR) Random Vancomycin Urine Legionella Ag Pending Mycoplasma pneumon IgG Mycoplasma pneumon IgM BCR/abl t(9;22) (FISH) [facility] [place] 08/06/19 08/06/19 08/06/19 19:03 19:26 19:26 WBC RBC Hgb Hct MCV MCH MCHC RDW Std Deviation RDW Coeff of [place] Plt Count MPV Immature Gran % (Auto) Neut % (Auto) Lymph % (Auto) [place] % (Auto) Eos % (Auto) Baso % (Auto) Immature Gran # (Auto) Neut # (Auto) Lymph # (Auto) [place] # (Auto) Eos # (Auto) Baso # (Auto) Echinocytes Peripher Smr Path Cons ESR Sample Site POC pH POC pCO2 POC pO2 POC HCO3 POC Total CO2 POC Base Excess POC ABG O2 Sat Arben Test O2 Delivery Device Sodium Potassium Chloride Carbon Dioxide Anion Gap BUN Creatinine Est Cr Clr Drug Dosing Est GFR ( Amer) Est GFR (Non-Af Amer) BUN/Creatinine Ratio Glucose POC Glucose 221 H POC Glucose (other) Estimat Average Glucose Hemoglobin A1c Lactate Calcium Phosphorus Magnesium Ferritin Total Bilirubin Direct Bilirubin AST ALT Alkaline Phosphatase Lactate Dehydrogenase Total Creatine Kinase Troponin I 0.093 H* C-Reactive Protein NT-Pro-B Natriuret Pep Total Protein Albumin Globulin Albumin/Globulin Ratio Procalcitonin Random Cortisol 17.17 ACTH Urine Color Urine Appearance Urine pH Ur Specific [place] Urine Protein Urine Glucose (UA) Urine Ketones Urine Blood Urine Nitrite Urine Bilirubin Urine Urobilinogen Ur Leukocyte Esterase Urine WBC (Auto) Urine RBC (Auto) U Hyaline Cast (Auto) U Epithel Cells (Auto) Urine Bacteria (Auto) Nasal Screen MRSA (PCR) Random Vancomycin Urine Legionella Ag Mycoplasma pneumon IgG Mycoplasma pneumon IgM BCR/abl t(9;22) (FISH) [facility] [place] 08/06/19 08/06/19 08/06/19 19:29 20:02 20:59 WBC RBC Hgb Hct MCV MCH MCHC RDW Std Deviation RDW Coeff of [place] Plt Count MPV Immature Gran % (Auto) Neut % (Auto) Lymph % (Auto) [place] % (Auto) Eos % (Auto) Baso % (Auto) Immature Gran # (Auto) Neut # (Auto) Lymph # (Auto) [place] # (Auto) Eos # (Auto) Baso # (Auto) Echinocytes Peripher Smr Path Cons ESR Sample Site POC pH POC pCO2 POC pO2 POC HCO3 POC Total CO2 POC Base Excess POC ABG O2 Sat Arben Test O2 Delivery Device Sodium Potassium Chloride Carbon Dioxide Anion Gap BUN Creatinine Est Cr Clr Drug Dosing Est GFR ( Amer) Est GFR (Non-Af Amer) BUN/Creatinine Ratio Glucose POC Glucose 192 H 187 H POC Glucose (other) Estimat Average Glucose Hemoglobin A1c Lactate 3.9 H* Calcium Phosphorus Magnesium Ferritin Total Bilirubin Direct Bilirubin AST ALT Alkaline Phosphatase Lactate Dehydrogenase Total Creatine Kinase Troponin I C-Reactive Protein NT-Pro-B Natriuret Pep Total Protein Albumin Globulin Albumin/Globulin Ratio Procalcitonin Random Cortisol ACTH Urine Color Urine Appearance Urine pH Ur Specific [place] Urine Protein Urine Glucose (UA) Urine Ketones Urine Blood Urine Nitrite Urine Bilirubin Urine Urobilinogen Ur Leukocyte Esterase Urine WBC (Auto) Urine RBC (Auto) U Hyaline Cast (Auto) U Epithel Cells (Auto) Urine Bacteria (Auto) Nasal Screen MRSA (PCR) Random Vancomycin Urine Legionella Ag Mycoplasma pneumon IgG Mycoplasma pneumon IgM BCR/abl t(9;22) (FISH) Misc Genetic Test 08/06/19 08/06/19 08/06/19 21:15 21:15 21:15 WBC RBC Hgb Hct MCV MCH MCHC RDW Std Deviation RDW Coeff of [place] Plt Count MPV Immature Gran % (Auto) Neut % (Auto) Lymph % (Auto) [place] % (Auto) Eos % (Auto) Baso % (Auto) Immature Gran # (Auto) Neut # (Auto) Lymph # (Auto) [place] # (Auto) Eos # (Auto) Baso # (Auto) Echinocytes Peripher Smr Path Cons ESR Sample Site POC pH POC pCO2 POC pO2 POC HCO3 POC Total CO2 POC Base Excess POC ABG O2 Sat Arben Test O2 Delivery Device Sodium Potassium Chloride Carbon Dioxide Anion Gap BUN Creatinine Est Cr Clr Drug Dosing Est GFR ( Amer) Est GFR (Non-Af Amer) BUN/Creatinine Ratio Glucose POC Glucose POC Glucose (other) Estimat Average Glucose Hemoglobin A1c Lactate Calcium Phosphorus Magnesium Ferritin 970.6 H Total Bilirubin Direct Bilirubin AST ALT Alkaline Phosphatase Lactate Dehydrogenase Total Creatine Kinase Troponin I C-Reactive Protein NT-Pro-B Natriuret Pep Total Protein Albumin Globulin Albumin/Globulin Ratio Procalcitonin Random Cortisol 14.03 ACTH Pending Urine Color Urine Appearance Urine pH Ur Specific [place] Urine Protein Urine Glucose (UA) Urine Ketones Urine Blood Urine Nitrite Urine Bilirubin Urine Urobilinogen Ur Leukocyte Esterase Urine WBC (Auto) Urine RBC (Auto) U Hyaline Cast (Auto) U Epithel Cells (Auto) Urine Bacteria (Auto) Nasal Screen MRSA (PCR) Random Vancomycin Urine Legionella Ag Mycoplasma pneumon IgG Mycoplasma pneumon IgM BCR/abl t(9;22) (FISH) [facility] [place] 08/06/19 08/06/19 08/06/19 22:05 22:10 22:34 WBC RBC Hgb Hct MCV MCH MCHC RDW Std Deviation RDW Coeff of [place] Plt Count MPV Immature Gran % (Auto) Neut % (Auto) Lymph % (Auto) [place] % (Auto) Eos % (Auto) Baso % (Auto) Immature Gran # (Auto) Neut # (Auto) Lymph # (Auto) [place] # (Auto) Eos # (Auto) Baso # (Auto) Echinocytes Peripher Smr Path Cons ESR Sample Site POC pH POC pCO2 POC pO2 POC HCO3 POC Total CO2 POC Base Excess POC ABG O2 Sat Arben Test O2 Delivery Device Sodium Potassium Chloride Carbon Dioxide Anion Gap BUN Creatinine Est Cr Clr Drug Dosing Est GFR ( Amer) Est GFR (Non-Af Amer) BUN/Creatinine Ratio Glucose POC Glucose 139 H 128 H POC Glucose (other) Estimat Average Glucose Hemoglobin A1c Lactate Calcium Phosphorus Magnesium Ferritin Total Bilirubin Direct Bilirubin AST ALT Alkaline Phosphatase Lactate Dehydrogenase Total Creatine Kinase Troponin I C-Reactive Protein NT-Pro-B Natriuret Pep Total Protein Albumin Globulin Albumin/Globulin Ratio Procalcitonin Random Cortisol > 150.00 ACTH Urine Color Urine Appearance Urine pH Ur Specific [place] Urine Protein Urine Glucose (UA) Urine Ketones Urine Blood Urine Nitrite Urine Bilirubin Urine Urobilinogen Ur Leukocyte Esterase Urine WBC (Auto) Urine RBC (Auto) U Hyaline Cast (Auto) U Epithel Cells (Auto) Urine Bacteria (Auto) Nasal Screen MRSA (PCR) Random Vancomycin Urine Legionella Ag Mycoplasma pneumon IgG Mycoplasma pneumon IgM BCR/abl t(9;22) (FISH) [facility] [place]/06/19 08/06/19 08/07/19 22:42 23:47 00:51 WBC RBC Hgb Hct MCV MCH MCHC RDW Std Deviation RDW Coeff of [place] Plt Count MPV Immature Gran % (Auto) Neut % (Auto) Lymph % (Auto) [place] % (Auto) Eos % (Auto) Baso % (Auto) Immature Gran # (Auto) Neut # (Auto) Lymph # (Auto) [place] # (Auto) Eos # (Auto) Baso # (Auto) Echinocytes Peripher Smr Path Cons ESR Sample Site POC pH POC pCO2 POC pO2 POC HCO3 POC Total CO2 POC Base Excess POC ABG O2 Sat Arben Test O2 Delivery Device Sodium Potassium Chloride Carbon Dioxide Anion Gap BUN Creatinine Est Cr Clr Drug Dosing Est GFR ( Amer) Est GFR (Non-Af Amer) BUN/Creatinine Ratio Glucose POC Glucose 115 H 112 H POC Glucose (other) Estimat Average Glucose Hemoglobin A1c Lactate Calcium Phosphorus Magnesium Ferritin Total Bilirubin Direct Bilirubin AST ALT Alkaline Phosphatase Lactate Dehydrogenase Total Creatine Kinase Troponin I C-Reactive Protein NT-Pro-B Natriuret Pep Total Protein Albumin Globulin Albumin/Globulin Ratio Procalcitonin Random Cortisol > 150.00 ACTH Urine Color Urine Appearance Urine pH Ur Specific [place] Urine Protein Urine Glucose (UA) Urine Ketones Urine Blood Urine Nitrite Urine Bilirubin Urine Urobilinogen Ur Leukocyte Esterase Urine WBC (Auto) Urine RBC (Auto) U Hyaline Cast (Auto) U Epithel Cells (Auto) Urine Bacteria (Auto) Nasal Screen MRSA (PCR) Random Vancomycin Urine Legionella Ag Mycoplasma pneumon IgG Mycoplasma pneumon IgM BCR/abl t(9;22) (FISH) [facility] [place] 08/07/19 08/07/19 08/07/19 02:05 03:58 04:36 WBC RBC Hgb Hct MCV MCH MCHC RDW Std Deviation RDW Coeff of [place] Plt Count MPV Immature Gran % (Auto) Neut % (Auto) Lymph % (Auto) [place] % (Auto) Eos % (Auto) Baso % (Auto) Immature Gran # (Auto) Neut # (Auto) Lymph # (Auto) [place] # (Auto) Eos # (Auto) Baso # (Auto) Echinocytes Peripher Smr Path Cons ESR Sample Site POC pH POC pCO2 POC pO2 POC HCO3 POC Total CO2 POC Base Excess POC ABG O2 Sat Arben Test O2 Delivery Device Sodium Potassium Chloride Carbon Dioxide Anion Gap BUN Creatinine Est Cr Clr Drug Dosing Est GFR ( Amer) Est GFR (Non-Af Amer) BUN/Creatinine Ratio Glucose POC Glucose 119 H 107 H POC Glucose (other) Estimat Average Glucose 137 Hemoglobin A1c 6.4 H Lactate Calcium Phosphorus Magnesium Ferritin Total Bilirubin Direct Bilirubin AST ALT Alkaline Phosphatase Lactate Dehydrogenase Total Creatine Kinase Troponin I C-Reactive Protein NT-Pro-B Natriuret Pep Total Protein Albumin Globulin Albumin/Globulin Ratio Procalcitonin Random Cortisol ACTH Urine Color Urine Appearance Urine pH Ur Specific [place] Urine Protein Urine Glucose (UA) Urine Ketones Urine Blood Urine Nitrite Urine Bilirubin Urine Urobilinogen Ur Leukocyte Esterase Urine WBC (Auto) Urine RBC (Auto) U Hyaline Cast (Auto) U Epithel Cells (Auto) Urine Bacteria (Auto) Nasal Screen MRSA (PCR) Random Vancomycin Urine Legionella Ag Mycoplasma pneumon IgG Mycoplasma pneumon IgM BCR/abl t(9;22) (FISH) Misc Genetic Test 08/07/19 08/07/19 08/07/19 04:36 04:36 04:36 WBC 58.72 H* D RBC 4.21 L Hgb 12.3 L Hct 36.6 L MCV 86.9 MCH 29.2 MCHC 33.6 RDW Std Deviation 46.2 RDW Coeff of [place] 14.5 Plt Count 176 MPV 9.2 Immature Gran % (Auto) 1.3 Neut % (Auto) 93.1 Lymph % (Auto) 0.9 [place] % (Auto) 4.5 Eos % (Auto) 0.1 Baso % (Auto) 0.1 Immature Gran # (Auto) 0.78 H Neut # (Auto) 54.67 H Lymph # (Auto) 0.54 L [place] # (Auto) 2.65 H Eos # (Auto) 0.04 Baso # (Auto) 0.04 Echinocytes 1+ Peripher Smr Path Cons ESR Sample Site POC pH POC pCO2 POC pO2 POC HCO3 POC Total CO2 POC Base Excess POC ABG O2 Sat Arben Test O2 Delivery Device Sodium 142 Potassium 3.9 Chloride 111 H Carbon Dioxide 25 Anion Gap 6.0 BUN 26 H Creatinine 1.10 D Est Cr Clr Drug Dosing 72.8 Est GFR ( Amer) 76.8 Est GFR (Non-Af Amer) 66.2 BUN/Creatinine Ratio 24.0 H Glucose 113 H POC Glucose POC Glucose (other) Estimat Average Glucose Hemoglobin A1c Lactate 1.6 Calcium 8.0 L Phosphorus 3.0 Magnesium 2.2 Ferritin Total Bilirubin 0.4 Direct Bilirubin 0.2 AST 29 ALT 73 Alkaline Phosphatase 68 Lactate Dehydrogenase Total Creatine Kinase 43 Troponin I C-Reactive Protein NT-Pro-B Natriuret Pep Total Protein 5.3 L Albumin 2.3 L Globulin Albumin/Globulin Ratio Procalcitonin Random Cortisol ACTH Urine Color Urine Appearance Urine pH Ur Specific [place] Urine Protein Urine Glucose (UA) Urine Ketones Urine Blood Urine Nitrite Urine Bilirubin Urine Urobilinogen Ur Leukocyte Esterase Urine WBC (Auto) Urine RBC (Auto) U Hyaline Cast (Auto) U Epithel Cells (Auto) Urine Bacteria (Auto) Nasal Screen MRSA (PCR) Random Vancomycin Urine Legionella Ag Mycoplasma pneumon IgG Mycoplasma pneumon IgM BCR/abl t(9;22) ([place]ISH) [facility]/07/19 08/07/19 08/07/19 04:36 04:36 04:36 WBC RBC Hgb Hct MCV MCH MCHC RDW Std Deviation RDW Coeff of [place] Plt Count MPV Immature Gran % (Auto) Neut % (Auto) Lymph % (Auto) [place] % (Auto) Eos % (Auto) Baso % (Auto) Immature Gran # (Auto) Neut # (Auto) Lymph # (Auto) [place] # (Auto) Eos # (Auto) Baso # (Auto) Echinocytes Peripher Smr Path Cons ESR Sample Site POC pH POC pCO2 POC pO2 POC HCO3 POC Total CO2 POC Base Excess POC ABG O2 Sat Arben Test O2 Delivery Device Sodium Potassium Chloride Carbon Dioxide Anion Gap BUN Creatinine Est Cr Clr Drug Dosing Est GFR ( Amer) Est GFR (Non-Af Amer) BUN/Creatinine Ratio Glucose POC Glucose POC Glucose (other) Estimat Average Glucose Hemoglobin A1c Lactate Calcium Phosphorus Magnesium Ferritin Total Bilirubin Direct Bilirubin AST ALT Alkaline Phosphatase Lactate Dehydrogenase 175 Total Creatine Kinase Troponin I C-Reactive Protein NT-Pro-B Natriuret Pep Total Protein Albumin Globulin Albumin/Globulin Ratio Procalcitonin 69.65 H Random Cortisol 62.41 ACTH Urine Color Urine Appearance Urine pH Ur Specific [place] Urine Protein Urine Glucose (UA) Urine Ketones Urine Blood Urine Nitrite Urine Bilirubin Urine Urobilinogen Ur Leukocyte Esterase Urine WBC (Auto) Urine RBC (Auto) U Hyaline Cast (Auto) U Epithel Cells (Auto) Urine Bacteria (Auto) Nasal Screen MRSA (PCR) Random Vancomycin Urine Legionella Ag Mycoplasma pneumon IgG Mycoplasma pneumon IgM BCR/abl t(9;22) (FISH) [facility] [place] [facility] 08/07/19 08/07/19 04:39 05:53 WBC RBC Hgb Hct MCV MCH MCHC RDW Std Deviation RDW Coeff of [place] Plt Count MPV Immature Gran % (Auto) Neut % (Auto) Lymph % (Auto) [place] % (Auto) Eos % (Auto) Baso % (Auto) Immature Gran # (Auto) Neut # (Auto) Lymph # (Auto) [place] # (Auto) Eos # (Auto) Baso # (Auto) Echinocytes Peripher Smr Path Cons ESR Sample Site POC pH POC pCO2 POC pO2 POC HCO3 POC Total CO2 POC Base Excess POC ABG O2 Sat Arben Test O2 Delivery Device Sodium Potassium Chloride Carbon Dioxide Anion Gap BUN Creatinine Est Cr Clr Drug Dosing Est GFR ( Amer) Est GFR (Non-Af Amer) BUN/Creatinine Ratio Glucose POC Glucose 122 H 108 H POC Glucose (other) Estimat Average Glucose Hemoglobin A1c Lactate Calcium Phosphorus Magnesium Ferritin Total Bilirubin Direct Bilirubin AST ALT Alkaline Phosphatase Lactate Dehydrogenase Total Creatine Kinase Troponin I C-Reactive Protein NT-Pro-B Natriuret Pep Total Protein Albumin Globulin Albumin/Globulin Ratio Procalcitonin Random Cortisol ACTH Urine Color Urine Appearance Urine pH Ur Specific [place] Urine Protein Urine Glucose (UA) Urine Ketones Urine Blood Urine Nitrite Urine Bilirubin Urine Urobilinogen Ur Leukocyte Esterase Urine WBC (Auto) Urine RBC (Auto) U Hyaline Cast (Auto) U Epithel Cells (Auto) Urine Bacteria (Auto) Nasal Screen MRSA (PCR) Random Vancomycin Urine Legionella Ag Mycoplasma pneumon IgG Mycoplasma pneumon IgM BCR/abl t(9;22) (FISH) [facility] Genetic Test Medications Administered Current Inpatient Medications Azithromycin (Zithromax) 500 mg PO QAM ADOLFO Stop: 08/14/19 08:59 Dextrose (Dextrose 50%) 25 - 50 ml IV UD PRN; Protocol PRN Reason: Hypoglycemia Protocol Stop: 09/05/19 12:59 Enoxaparin Sodium (Lovenox) 40 mg SQ QAM ADOLFO Stop: 09/05/19 15:59 Last Admin: 08/07/19 08:18 Dose: 40 mg Documented by: Glucagon (Glucagen) 1 mg IM UD PRN; Protocol PRN Reason: Hypoglycemia Protocol Stop: 09/05/19 12:59 Glucose (Glucose 40%) 15 - 30 gm PO UD PRN; Protocol PRN Reason: Hypoglycemia Protocol Stop: 09/05/19 12:59 Glucose (Dex4 Glucose) 4 - 8 tabs PO UD PRN; Protocol PRN Reason: Hypoglycemia Protocol Stop: 09/05/19 12:59 Heparin Sodium (Beef Lung) (Heparin Sod 10 Unit/Ml Flush) 5 ml FLUSH PRN PRN PRN Reason: Flush Stop: 09/05/19 22:52 Norepinephrine Bitartrate 8 mg (/ Dextrose) 508 mls @ 0 mls/hr IV .Q0M ADOLFO; Protocol Stop: 09/05/19 12:44 Last Titration: 08/07/19 08:42 Dose: Infused Documented by: Piperacillin Sod/Tazobactam (Sod 4.5 gm/ Dextrose) 120 mls @ 30 mls/hr IV Q8H ADOLFO; Protocol Stop: 08/13/19 17:59 Last Admin: 08/07/19 10:41 Dose: 30 mls/hr Documented by: Insulin Human Regular 250 (units/ Sodium Chloride) 250 mls @ 1.6 mls/hr IV .Q24H ADOLFO; Protocol Stop: 09/05/19 15:44 Last Titration: 08/07/19 07:04 Dose: 1.6 units/hr, 1.6 mls/hr Documented by: Vancomycin HCl 1,250 mg/ (Sodium Chloride) 275 mls @ 125 mls/hr IV Q12H ADOLFO Stop: 08/14/19 07:59 Last Infusion: 08/07/19 10:37 Dose: Infused Documented by: Insulin Aspart (Novolog Flexpen) 0 units SC ACHS [facility]; Protocol Stop: 09/05/19 16:29 Last Admin: 08/07/19 08:19 Dose: 3 units Documented by: Miscellaneous (Carbohydrates For Hypoglycemia) 15 - 30 gm PO UD PRN PRN Reason: Hypoglycemia Treatment Stop: 09/05/19 12:59 Miscellaneous Information (Consult) 1 ea N/A UD PRN PRN Reason: Consult Stop: 09/05/19 12:10 Miscellaneous Information (Consult) 1 ea N/A UD PRN PRN Reason: Consult Stop: 09/05/19 12:10 Miscellaneous Information (Consult Glycemic Management Pharmacy) 1 ea N/A UD ADOLFO Stop: 09/05/19 15:23 PG Care Time/CCT Total # of Minutes Spent Total Time Spent with Patient: Total time spent is greater than 50% in coordination of care (as documented) at patient's floor/unit and/or counseling patient:
--- NOTE | 2019-08-07 13:10 | Infectious Disease Consult ---
Date of Consultation August 07, 2019 Assessment & Plan (1) Acute hypoxemic respiratory failure: continue abx for suspected COPD exacerbation, agree with atypical coverage. follow cultures, currently pending. afebrile since admission. bp better, awaiting transfer. follow cbc, could be related to infection, IV steroids. (2) Leukocytosis: History of Present Illness Attending Physician: Renato Guillermo DO pt transferred from [facility], was initially on pressors, now off. awaiting transfer out of ICU. has copd, started on vanco, zosyn and azithro for this, tolerating well. also had IV steroids prior to trnasfer. wbc has high as 82 yesterday, 58 today. pt states he feels significantly better, no f/c. no sob, wheeze, cp, min non productive cough. no abd pain no n/v/d. no gu symptoms. creat 1.1, ESR 16, crp 7.6 UA negative, CXR negative, ct abd negative. legionella and mycoplasma pending. 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 ID consulted for sepsis and possible leukemia. Allergies Allergy/AdvReac Type Severity Reaction Status Date / Time fluticasone Allergy Mild Hives Verified 07/31/19 12:02 salmeterol Allergy Mild Hives Verified 07/31/19 12:02 Home Medications Home Medications Medication Instructions Recorded Confirmed Type albuterol sulfate HFA 90 2 puffs INHALATION Q4H #18 gm 07/31/19 07/31/19 Rx mcg/actuation aerosol inhaler fluticasone furoate 100 1 inh INH DAILY #1 inhaler 07/31/19 07/31/19 Rx mcg-vilanterol 25 mcg/dose inhalation powder ipratropium-albuterol 0.5 mg-3 3 ml INHALATION Q4H PRN #180 ml 07/31/19 07/31/19 Rx mg(2.5 mg base)/3 mL nebulization soln levofloxacin 750 mg tablet 750 mg PO DAILY #14 tab 07/31/19 07/31/19 Rx nebulizers #1 ea 07/31/19 07/31/19 Rx prednisone 10 mg tablet See Rx Instructions PO DAILY #20 07/31/19 07/31/19 Rx tab Patient History Medical History COPD (chronic obstructive pulmonary disease) Family History Other Hypertension Social History Preferred Language: Portuguese Communication Ability: Effective 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 Son yemi lives within a few minutes Other Information That Helps Us Care for You: No Feels Safe at Home: Yes Safety Concerns: Feels Safe At This Time Smoking Status: Former smoker Tobacco Type: cigarettes ; Age Started Using Tobacco: 15 ; Age Quit Using Tobacco: 30 ; packs per day: 2 ; Smoking End Date: 1975 ; Number of Years Since Quit: 44 ; Second Hand Exposure: Yes ; Hx Alcohol Use: No Hx Substance Use: No Review of Systems Review of Systems: All systems reviewed & are unremarkable except as noted in HPI & below Physical Exam Constitutional: WD/WN, vitals as above Eyes: PERRL, conjunctivae normal, anicteric sclerae ENMT: external ear and nose normal, oropharynx normal Neck: normal visual inspection Respiratory: normal respiratory effort, lungs clear to auscultation Cardiovascular: RRR, no murmur, no edema Gastrointestinal (Abdomen): normal bowel sounds, soft, nontender, no hepatosplenomegaly Musculoskeletal: no cyanosis or clubbing, extremities motor strength 5/5 Skin: no rashes, warm and dry Psychiatric: A+Ox3, euthymic affect Results & Data Vital Signs (Past 12 Hours) Vital Signs Temp Pulse Resp BP Pulse Ox 08/07/19 09:00 74 19 106/63 95 08/07/19 08:02 64 20 121/78 92 08/07/19 07:00 63 23 115/71 100 08/07/19 06:00 61 20 111/71 100 08/07/19 05:00 64 20 97/74 L 100 08/07/19 04:00 36.7 C 63 20 104/67 100 08/07/19 03:00 65 19 101/68 100 08/07/19 02:00 78 16 105/64 100 PG Care Time/CCT Total # of Minutes Spent Total Time Spent with Patient: Total time spent is greater than 50% in coordination of care (as documented) at patient's floor/unit and/or counseling patient:
--- NOTE | 2019-08-07 14:10 | Pharmacy Report ---
Glycemic Control Consultation - Date of Service August 07, 2019 - Scope Scope: Glycemic Pharmacist consulted by Dr Felix on 08/07 for glycemic control and to write orders per [facility] inpatient glycemic control protocol - Objective Weight: 108.4 kg Accuchecks BSG (last 24hrs): 08/06/19 08/06/19 08/06/19 15:02 17:09 18:04 Glucose POC Glucose 249 H POC Glucose (other) 242 H 265 H 08/06/19 08/06/19 08/06/19 19:03 20:02 20:59 Glucose POC Glucose 221 H 192 H 187 H POC Glucose (other) 08/06/19 08/06/19 08/06/19 22:05 22:34 23:47 Glucose POC Glucose 139 H 128 H 115 H POC Glucose (other) 08/07/19 08/07/19 08/07/19 00:51 02:05 03:58 Glucose POC Glucose 112 H 119 H 107 H POC Glucose (other) 08/07/19 08/07/19 08/07/19 04:36 04:39 05:53 Glucose 113 H POC Glucose 122 H 108 H POC Glucose (other) 08/07/19 13:40 Glucose POC Glucose 160 H POC Glucose (other) Laboratory Data (last 24hrs): 08/07/19 04:36 Potassium 3.9 Carbon Dioxide 25 Anion Gap 6.0 Creatinine 1.10 D Est Cr Clr Drug Dosing 72.8 HbA1c: Hemoglobin A1c 6.4 % (4.5-5.6) H 08/07/19 04:36 - Recent Pertinent Medications Outpatient Anti-diabetic Regimen: * N/A, pred taper * A1c = 6.4% 08/07 The patient is currently receiving: * Insulin infusion @ 1.6 units/hr Risk Factors for Insulin Resistance: * Steroids: received doses of hydrocortisone/cosynotropin stim test * Infection: Vanc/zosyn, Azithro * Pressors: norepinephrine was titrated off * Diet: T2DM - Assessment & Plan Assessment & Plan: ASSESSMENT: * Mr. Lassiter was transferred from [facility] for septic shock, past medical history includes CAD with STENT placement and COPD * WBC 53273 on admission, trending down, was started on vancomycin, azithromycin zosyn, tapered to zosyn, azithromycin today * BSG was elevated in 200s on admission and requiring pressors (have tapered off), therefore insulin infusion was started * Patient received a dose of hydrocortisone last night, BSGs trended down consistently within goal range with rate of 1.6 units * Patient does have diet ordered, A1c 6.4% without outpatient medications, will transition off of the drip with weight based stress of 1 as no plan for further steroids- lantus 20 units x 1 ordered * Patient transitioned off drip at 1400, will initiate subq novolog with correction factor stress of 2 and carb ratio 12 (was using 14 for calculator but drip now off/ slightly less lantus) * Will set scale lantus for this evening if needed. PLAN FOR INPATIENT GLYCEMIC CONTROL: * Basal insulin * Lantus 20 units SQ x1 * hold HS if BSG <=160, 10 units >160 * Bolus insulin * NovoLog per scale ACHS or Q6hrs while NPO * Goal Range: Low 110 mg/dL - High 140 mg/dL * Correction Factor: 20 mg/dL/unit * Nutritional / Prandial insulin per carb ratio of 1 unit per 12 grams CHO consumed * Please note that the plan above was derived based on current level of insulin resistance and hospital stress. These recommendations are appropriate for inpatient admission only. Plan of care upon discharge will need to be reassessed to avoid potential outpatient hypo/hyperglycemia. Thank you.
[2019-08-07] MEDS: ALBUT/IPRATROP 3MG/0.5MG NEB 3 ML VIAL NEB SCH ×2 (15:20→19:44)
[2019-08-08] MEDS: PIPERACILLIN/TAZOBACTAM 4.5 GM in DEXTROSE 5% 100 ML IV SCH ×3 (03:38→18:13)
[2019-08-08] MEDS ORDERED: VANCOMYCIN TROUGH ONE (05:30)
[2019-08-08 06:06] LABS: Hematocrit (blood only) 36.7 % (42-52); Hemoglobin 12.7 g/dL (14.0-18.0); Mean Corpuscular Hemoglobin 29.7 pg (25-34); Mean Corpuscular Hgb Conc 34.6 g/dL (32-36); Mean Corpuscular Volume 85.7 fL (80-100); Mean Platelet Volume 9.4 fL (7.4-10.4); Platelet Count 166 K/uL (130-400); RDW Coefficient of Variation 14.6 % (11.5-14.5); RDW Standard Deviation 46.2 fL (36.4-46.3); Red Blood Count 4.28 M/uL (4.7-6.1); White Blood Count 29.36 K/uL (4.8-10.8)
[2019-08-08 06:24] LABS: Basophils # (auto) 0.02 K/uL (0-0.2); Basophils % (auto) 0.1 %; Eosinophils # (auto) 1.17 K/uL (0-0.5); Immature Granulocytes # (auto) 0.12 K/uL (0.00-0.02); Immature Granulocytes % (auto) 0.4 %; Lymphocytes # (auto) 0.96 K/uL (1.2-3.4); Lymphocytes % (auto) 3.3 %; Monocytes # (auto) 1.15 K/uL (0.11-0.59); Monocytes % (auto) 3.9 %; Neutrophils # (auto) 25.94 K/uL (1.4-6.5); Neutrophils % (auto) 88.3 %
[2019-08-08 06:37] LABS: BUN Creatinine Ratio 27.4 (10-20); Creatinine Clr Calc Pharmacy 71.8 ml/min; Est GFR (African American) 74.3; Est GFR (Non-African American) 64.1; Potassium 3.6 mmol/L (3.5-5.1)
[2019-08-08] MEDS: ALBUT/IPRATROP 3MG/0.5MG NEB 3 ML VIAL NEB SCH ×4 (07:21→19:26)
[2019-08-08] MEDS: FLUTICASONE/VILANTEROL INHALER INH SCH (07:57)
[2019-08-08] MEDS: AZITHROMYCIN 250 MG TAB PO SCH (07:58)
[2019-08-08] MEDS: ASPIRIN 81 MG ECTAB PO SCH (07:58)
[2019-08-08] MEDS: INSULIN ASPART 100 UNITS/ML 3 ML PEN SC SCH ×4 (08:01→20:10)
[2019-08-08] MEDS: ENOXAPARIN INJ 40 MG/0.4 ML SYR SQ SCH (08:02)
--- NOTE | 2019-08-08 10:41 | Pharmacy Report ---
Pharmacy Glycemic Sign Off Nt - Date of Service August 08, 2019 - Assessment & Plan ASSESSMENT: * Pharmacy was consulted by Dr Felix on 08/06/19 for glycemic control and to write orders per [facility] inpatient glycemic control protocol. * Major changes made by pharmacy to antidiabetic regimen include: * Transitioning from IV insulin infusion to SQ basal bolus insulin regimen on 08/07/19. Pt started on IV insulin infusion for hyperglycemia while in ICU * Pt A1c indicated "pre-diabetes" at 6.4%. However, this may be slightly inflated d/t recent prednisone taper. * Hyperglycemia resolved, expect minimal insulin needed over the next 24hrs * Do not anticipate further changes in patient status that would quickly deteriorate glycemic control (i.e. patient to be NPO for upcoming procedure, steroids, starting tube feedings, etc). PLAN FOR INPATIENT GLYCEMIC CONTROL: * DC basal insulin * Continue NovoLog per scale ACHS/Q6hrs while NPO, but DC CR * Goal range = 110 - 140 mg/dl * CF = 30 mg/dl/unit * CR = 1 unit for ever -- g CHO consumed * Pharmacy is signing off of glycemic consult and will no longer be making adjustments to inpatient regimen. Please feel free to re-consult if needed. Thank you.
--- NOTE | 2019-08-08 11:27 | Hospitalist Progress Note ---
Date of Service August 08, 2019 Assessment & Plan (1) Acute hypoxemic respiratory failure: currently stable on room air, 97% saturations no clear pneumonia on CXR today however, CTA chest showed possible infiltrate left lower lobe breathing well today, no wheezing, minimal cough, no rhonchi will down grade to medical (2) Septic shock: unclear etiology echo with EF of 70%, thus no cardiogenic shock titrated off of Levophed shortly after admission blood cultures with no growth no obvious pneumonia on CXR CTA chest from [facility] with left lower lobe [id number] nodular density CT abdomen/pelvis without infection/inflammation urine appears clean Zithromax, Zosyn for 5-7 day course transition to PO Augmentin tomorrow Vanco stopped when MRSA swab was negative WBC down to 29k, procalcitonin down (3) COPD (chronic obstructive pulmonary disease): no obvious wheezing on exam, not in much distress continue nebulizers continue Breo Elipta no role for steroids at this time, no signs of exacerbation (4) SHITAL (acute kidney injury): possible SHITAL as Cr was 1.4 on admission resolved with fluids and pressor support, Cr down to 1.1 for two days adequate UO (5) Lactic acidosis: coming down appropriately with adequate volume and pressor support last draw was 1.6, thus it is resolved (6) Hyperglycemia: could be due to steroids HbA1c is 6.4% continue Novolog SS patient has lost 60lbs intentionally over the past several months encourage him to continue his diet (7) Prediabetes: HbA1c is 6.4% will educate him on prediabetes, low carbohydrate diet per the patient he dropped from 279lb to 212lbs in the past few months with diet (8) Neutrophilic leukocytosis: down to 29k today from 50k yesterday all neutrophils on the differential will cancel the hematology consult as there is no further work up at this time (9) CAD (coronary artery disease): h/o stent placed per patient will check lipid profile in the AM - LDL at goal, will not use statin at this time continue aspirin 81mg Subjective patient continues to improve every day no dyspnea, no cough, no fever/chills eating well, no nausea, no diarrhea reviewed labs, WBC down to 29k, Hb 12, Cr is 1.1 and electrolytes stable lipid profile shows levels at goal will downgrade to medical floor today discussed that he could likely be d/c home tomorrow, he agreed with this Review of Systems Review of Systems: All systems reviewed & are unremarkable except as noted in HPI & below Physical Exam Constitutional: WD/WN, vitals as above + overweight; no acute distress Eyes: PERRL, conjunctivae normal, anicteric sclerae ENMT: external ear and nose normal, oropharynx normal Neck: trachea midline, no thyromegaly Respiratory: normal respiratory effort, lungs clear to auscultation Cardiovascular: RRR, no murmur, no edema Gastrointestinal (Abdomen): normal bowel sounds, soft, nontender, no hepatosplenomegaly Musculoskeletal: no cyanosis or clubbing, extremities motor strength 5/5 Skin: no rashes, warm and dry Neurologic: patellar DTR's 2+ bilat, sensation intact and PERRL, EOMI, accommodation nl, no face palsy, no dysarthria Psychiatric: A+Ox3, euthymic affect Lymphatic: no cervical or axillary lymphadenopathy Results & Data Vital Signs (Past 12 Hours) Vital Signs Temp Pulse Pulse Resp BP Pulse Ox 08/08/19 10:55 69 14 97 08/08/19 08:08 36.6 C 60 20 119/76 100 08/08/19 08:00 70 08/08/19 07:22 68 14 95 08/08/19 03:43 36.6 C 60 20 116/69 97 08/08/19 00:13 65 08/08/19 00:03 36.7 C 63 20 114/77 98 Laboratory Results Laboratory Results - last 24 hr 08/07/19 08/07/19 08/07/19 07:05 08:06 09:06 WBC RBC Hgb Hct MCV MCH MCHC RDW Std Deviation RDW Coeff of [place] Plt Count MPV Immature Gran % (Auto) Neut % (Auto) Lymph % (Auto) [place] % (Auto) Eos % (Auto) Baso % (Auto) Immature Gran # (Auto) Neut # (Auto) Lymph # (Auto) [place] # (Auto) Eos # (Auto) Baso # (Auto) Sodium Potassium Chloride Carbon Dioxide Anion Gap BUN Creatinine Est Cr Clr Drug Dosing Est GFR ( Amer) Est GFR (Non-Af Amer) BUN/Creatinine Ratio Glucose POC Glucose 110 H 111 H 137 H Calcium Triglycerides Cholesterol LDL Cholesterol, Calc VLDL Cholesterol, Calc HDL Cholesterol Cholesterol/HDL Ratio 08/07/19 08/07/19 08/07/19 10:01 11:20 12:28 WBC RBC Hgb Hct MCV MCH MCHC RDW Std Deviation RDW Coeff of [place] Plt Count MPV Immature Gran % (Auto) Neut % (Auto) Lymph % (Auto) [place] % (Auto) Eos % (Auto) Baso % (Auto) Immature Gran # (Auto) Neut # (Auto) Lymph # (Auto) [place] # (Auto) Eos # (Auto) Baso # (Auto) Sodium Potassium Chloride Carbon Dioxide Anion Gap BUN Creatinine Est Cr Clr Drug Dosing Est GFR ( Amer) Est GFR (Non-Af Amer) BUN/Creatinine Ratio Glucose POC Glucose 196 H 156 H 168 H Calcium Triglycerides Cholesterol LDL Cholesterol, Calc VLDL Cholesterol, Calc HDL Cholesterol Cholesterol/HDL Ratio 08/07/19 08/07/19 08/07/19 13:40 16:44 20:33 WBC RBC Hgb Hct MCV MCH MCHC RDW Std Deviation RDW Coeff of [place] Plt Count MPV Immature Gran % (Auto) Neut % (Auto) Lymph % (Auto) [place] % (Auto) Eos % (Auto) Baso % (Auto) Immature Gran # (Auto) Neut # (Auto) Lymph # (Auto) [place] # (Auto) Eos # (Auto) Baso # (Auto) Sodium Potassium Chloride Carbon Dioxide Anion Gap BUN Creatinine Est Cr Clr Drug Dosing Est GFR ( Amer) Est GFR (Non-Af Amer) BUN/Creatinine Ratio Glucose POC Glucose 160 H 120 H 163 H Calcium Triglycerides Cholesterol LDL Cholesterol, Calc VLDL Cholesterol, Calc HDL Cholesterol Cholesterol/HDL Ratio 08/08/19 08/08/19 08/08/19 05:40 05:40 07:39 WBC 29.36 H RBC 4.28 L Hgb 12.7 L Hct 36.7 L MCV 85.7 MCH 29.7 MCHC 34.6 RDW Std Deviation 46.2 RDW Coeff of [place] 14.6 H Plt Count 166 MPV 9.4 Immature Gran % (Auto) 0.4 Neut % (Auto) 88.3 Lymph % (Auto) 3.3 Ellis % (Auto) 3.9 Eos % (Auto) 4.0 Baso % (Auto) 0.1 Immature Gran # (Auto) 0.12 H Neut # (Auto) 25.94 H Lymph # (Auto) 0.96 L Ellis # (Auto) 1.15 H Eos # (Auto) 1.17 H Baso # (Auto) 0.02 Sodium 144 Potassium 3.6 Chloride 111 H Carbon Dioxide 26 Anion Gap 7.0 BUN 31 H Creatinine 1.13 Est Cr Clr Drug Dosing 71.8 Est GFR ( Amer) 74.3 Est GFR (Non-Af Amer) 64.1 BUN/Creatinine Ratio 27.4 H Glucose 84 POC Glucose 79 Calcium 8.0 L Triglycerides 90 Cholesterol 105 LDL Cholesterol, Calc 49 VLDL Cholesterol, Calc 18 HDL Cholesterol 38 Cholesterol/HDL Ratio 3 Microbiology 08/06/19 12:36 Blood Aerobic Blood Culture - Preliminary No growth in Aerobic bottle after 24 hours. 08/06/19 12:36 Blood Anaerobic Blood Culture - Preliminary No growth in Anaerobic bottle after 24 hours. 08/06/19 12:22 Blood Aerobic Blood Culture - Preliminary No growth in Aerobic bottle after 24 hours. 08/06/19 12:22 Blood Anaerobic Blood Culture - Preliminary No growth in Anaerobic bottle after 24 hours. Medications Administered Current Inpatient Medications Albuterol (Duoneb) 3 ml NEB QIDR [facility] Stop: 09/06/19 14:59 Last Admin: 08/08/19 10:55 Dose: 3 ml Documented by: Aspirin (Ecotrin Ectab) 81 mg PO QAM [facility] Stop: 09/07/19 08:59 Last Admin: 08/08/19 07:58 Dose: 81 mg Documented by: Azithromycin (Zithromax) 500 mg PO QAM [facility] Stop: 08/14/19 08:59 Last Admin: 08/08/19 07:58 Dose: 500 mg Documented by: Dextrose (Dextrose 50%) 25 - 50 ml IV UD PRN; Protocol PRN Reason: Hypoglycemia Protocol Stop: 09/05/19 12:59 Enoxaparin Sodium (Lovenox) 40 mg SQ QAM [facility] Stop: 09/05/19 15:59 Last Admin: 08/08/19 08:02 Dose: 40 mg Documented by: Fluticasone/Vilanterol (Breo Ellipta) 1 puffs INH DAILY ADOLFO Stop: 09/07/19 08:59 Last Admin: 08/08/19 07:57 Dose: 1 puffs Documented by: Glucagon (Glucagen) 1 mg IM UD PRN; Protocol PRN Reason: Hypoglycemia Protocol Stop: 09/05/19 12:59 Glucose (Glucose 40%) 15 - 30 gm PO UD PRN; Protocol PRN Reason: Hypoglycemia Protocol Stop: 09/05/19 12:59 Glucose (Dex4 Glucose) 4 - 8 tabs PO UD PRN; Protocol PRN Reason: Hypoglycemia Protocol Stop: 09/05/19 12:59 Heparin Sodium (Beef Lung) (Heparin Sod 10 Unit/Ml Flush) 5 ml FLUSH PRN PRN PRN Reason: Flush Stop: 09/05/19 22:52 Piperacillin Sod/Tazobactam (Sod 4.5 gm/ Dextrose) 120 mls @ 30 mls/hr IV Q8H ADOLFO; Protocol Stop: 08/13/19 17:59 Last Admin: 08/08/19 10:15 Dose: 30 mls/hr Documented by: Insulin Aspart (Novolog Flexpen) 0 units SC ACHS ADOLFO Stop: 09/06/19 16:29 Last Admin: 08/08/19 08:01 Dose: Not Given Documented by: Miscellaneous (Carbohydrates For Hypoglycemia) 15 - 30 gm PO UD PRN PRN Reason: Hypoglycemia Treatment Stop: 09/05/19 12:59 Miscellaneous Information (Consult) 1 ea N/A UD PRN PRN Reason: Consult Stop: 09/05/19 12:10 PG Care Time/CCT Total # of Minutes Spent Total Time Spent with Patient: Total time spent is greater than 50% in coordination of care (as documented) at patient's floor/unit and/or counseling patient:
[2019-08-09] MEDS: PIPERACILLIN/TAZOBACTAM 4.5 GM in DEXTROSE 5% 100 ML IV SCH (02:54)
[2019-08-09] MEDS: ALBUT/IPRATROP 3MG/0.5MG NEB 3 ML VIAL NEB SCH (06:58)
[2019-08-09 07:13] LABS: Basophils # (auto) 0.01 K/uL (0-0.2); Basophils % (auto) 0.1 %; Eosinophils # (auto) 0.79 K/uL (0-0.5); Eosinophils % (auto) 6.4 %; Hematocrit (blood only) 36.5 % (42-52); Hemoglobin 12.1 g/dL (14.0-18.0); Immature Granulocytes # (auto) 0.04 K/uL (0.00-0.02); Immature Granulocytes % (auto) 0.3 %; Lymphocytes # (auto) 1.01 K/uL (1.2-3.4); Lymphocytes % (auto) 8.2 %; Mean Corpuscular Hgb Conc 33.2 g/dL (32-36); Mean Corpuscular Volume 84.5 fL (80-100); Monocytes # (auto) 0.66 K/uL (0.11-0.59); Monocytes % (auto) 5.3 %; Neutrophils # (auto) 9.85 K/uL (1.4-6.5); Neutrophils % (auto) 79.7 %; Platelet Count 168 K/uL (130-400); RDW Coefficient of Variation 14.3 % (11.5-14.5); RDW Standard Deviation 44.7 fL (36.4-46.3); Red Blood Count 4.32 M/uL (4.7-6.1); White Blood Count 12.36 K/uL (4.8-10.8)
[2019-08-09 07:29] LABS: BUN Creatinine Ratio 22.2 (10-20); Calcium 8.2 mg/dl (8.5-10.1); Est GFR (African American) 92.9; Est GFR (Non-African American) 80.1; Potassium 3.6 mmol/L (3.5-5.1)
[2019-08-09] MEDS: FLUTICASONE/VILANTEROL INHALER INH SCH (08:49)
[2019-08-09] MEDS: ASPIRIN 81 MG ECTAB PO SCH (08:49)
[2019-08-09] MEDS: ENOXAPARIN INJ 40 MG/0.4 ML SYR SQ SCH (08:50)
[2019-08-09] MEDS: AZITHROMYCIN 250 MG TAB PO SCH (08:50)
[2019-08-09] MEDS: INSULIN ASPART 100 UNITS/ML 3 ML PEN SC SCH (08:51)
--- NOTE | 2019-08-09 10:23 | Discharge Summary ---
Date of Service August 09, 2019 Admission HPI Per Admitting Provider 73 yo male with a history of COPD who presented to the ED at [facility] last evening due to worsening shortness of breath. He reports that his breathing has been getting progressively worse for the past two months. He said that he has a history of COPD, used to use maintenance inhalers but stopped 4 years ago because his breathing was fine. He said that he went on trip to [facility] 2 months ago and stayed in a hotel and the ventilation or AC unit was not in good condition and he says that is what triggered his dyspnea. He has experienced a cough, intermittently productive of sputum. No fever or chills. No chest pain or abdominal pain. He has been trying to lose weight by following a strict diet, he has lost over 50lbs intentionally in the past few months. He denies any history of heart disease, stroke, cancer, DM, hyperlipidemia. However, he has not seen a physician in several years and was just looking to get re-established with someone. In the ED at [facility] he was found to have possible pneumonia and COPD exacerbation and was suspected to have septic shock. He was hypotensive despite adequate fluid resuscitation. He had a left subclavicular line placed and he was started on Levophed with good response. He was given Levaquin, Solu Medrol and breathing treatments and transfer to ICU at [facility] was requested. Upon arrival he was on 2L NC but was in slight respiratory distress. He quickly calmed down. Vitals were stable and BP was in the 120's systolic on minimal pressor support. He was promptly evaluated by the ICU team on admission. Principal Diagnosis Septic shock due to left lower lobe pneumonia Discharge Exam Constitutional WD/WN, vitals as above + overweight; no acute distress Eyes PERRL, conjunctivae normal, anicteric sclerae ENMT external ear and nose normal, oropharynx normal Neck trachea midline, no thyromegaly Respiratory normal respiratory effort, lungs clear to auscultation Cardiovascular RRR, no murmur, no edema Gastrointestinal (Abdomen) normal bowel sounds, soft, nontender, no hepatosplenomegaly Musculoskeletal no cyanosis or clubbing, extremities motor strength 5/5 Skin no rashes, warm and dry Neurologic patellar DTR's 2+ bilat, sensation intact and PERRL, EOMI, accommodation nl, no face palsy, no dysarthria Psychiatric A+Ox3, euthymic affect Lymphatic no cervical or axillary lymphadenopathy Discharge Data Allergies Allergy/AdvReac Type Severity Reaction Status Date / Time fluticasone Allergy Mild Hives Verified 07/31/19 12:02 salmeterol Allergy Mild Hives Verified 07/31/19 12:02 Consultations 08/06/19 12:04 Consult Case Management - Discharge Planning Routine 08/06/19 12:05 Consult Injection Molding Machine Setter Routine 08/06/19 16:24 Consult Infectious Diseases Routine 08/09/19 09:43 Consult [facility] home agent Routine Ordered Studies 08/06/19 12:20 US point of care ultrasound Stat 08/06/19 14:58 CT abd pelvis oral con only Urgent Hospital Course (1) Pneumonia: CTA chest from [facility] showed a left lower lobe [id number] nodular density no other obvious source of infection to cause profound leukocytosis, septic shock treated with Vancomycin, Zosyn, Zithromax initially d/c Vanco when MRSA swab negative afebrile, breathing room air, minimal cough, lungs clear d/c home on 2 more days of Zithromax and 3 more days of Augmentin follow up with PCP (2) Acute hypoxemic respiratory failure: stable on room air, 97% saturations, for over two days due to pneumonia breathing well today, no wheezing, minimal cough, no rhonchi (3) Septic shock: unclear etiology, but pneumonia seems most likely echo with EF of 70%, thus no cardiogenic shock titrated off of Levophed shortly after admission blood cultures with no growth no obvious pneumonia on CXR here at [facility] CTA chest from [facility] with left lower lobe [id number] nodular density CT abdomen/pelvis without infection/inflammation urine appears clean WBC down to near normal level today (4) COPD (chronic obstructive pulmonary disease): no obvious wheezing on exam, not in much distress continue nebulizers continue Breo Elipta no role for steroids at this time, no signs of exacerbation (5) SHITAL (acute kidney injury): possible SHITAL as Cr was 1.4 on admission resolved with fluids and pressor support, Cr down to 0.9 today adequate UO (6) Lactic acidosis: coming down appropriately with adequate volume and pressor support last draw was 1.6, thus it is resolved (7) Hyperglycemia: could be due to steroids HbA1c is 6.4% continue Novolog SS patient has lost 60lbs intentionally over the past several months encourage him to continue his diet educated him on low carb diet follow up with PCP, no role for Metformin for the time being (8) Prediabetes: HbA1c is 6.4% will educate him on prediabetes, low carbohydrate diet per the patient he dropped from 279lb to 212lbs in the past few months with diet see above (9) Neutrophilic leukocytosis: down to 12k today from 29k yesterday peak value was 80k on 08/06 all neutrophils on the differential d/w hematology, just represents neutrophilic leukocytosis due to infection and steroids received at [facility] (10) CAD (coronary artery disease): h/o stent placed per patient lipid profile in the AM - LDL at goal, will not use statin at this time continue aspirin 81mg Total Time Total Time Spent Total Time Spent (In Minutes): 33 minutes Total Time Includes: Examination of the Patient, Discharge Planning and Medication Reconciliation Discharge Plan Discharge Items Patient Disposition: Home - Self-Care Reason For Visit: LEFT PHEUMONIA, SEPSIS Discharge Diagnosis: Left sided pneumonia Sepsis with shock, resolved Acute kidney injury, resolved Acute hypoxic respiratory failure, resolved Condition on Discharge: Good Goals: complete treatment with antibiotics follow up closely with your PCP Activity: Resume your previous activity Non-emergency contact: Primary Care Provider Call non-emergency contact if: you have any medication questions, your symptoms worsen, your pain is not controlled and you have a fever Follow-up/Referrals: Elvin Calle, [Primary Care Provider] - (please call for appt in next 7- 10 days) Diet: Heart Healthy Addtl Attending Provider Instructions: Medications: - AZITHROMYCIN: 500mg daily for 2 more days, next dose due tomorrow morning - AMOXICILLIN-CLAVULONATE: 875mg twice a day for 3 more days, next dose due this evening Left lower lobe pneumonia, septic shock, acute hypoxia, acute kidney injury all are resolving with antibiotics and fluids initially on broad spectrum IV antibiotics, tapered to just Zithromax and Zosyn IV, no fever, WBC down to near normal levels, no hypoxia recommend completing 2 more days of Zithromax and 3 more days of Augmentin renal function returned to normal in 24 hours with IV fluids Pre-diabetes: HbA1c is 6.4% which is just below the cutoff for diabetes at 6.5% you have done a great job at losing weight with diet encourage you to continue to eat well, avoid excessive carbohydrates such as breads, pastas, rice etc avoid sweets at this point you do not need medication but if your HbA1c would go up above 6.5% then Dr. Calle may start you on something history of coronary disease: recommend that you take a daily baby aspirin if you are not taking one already checked your cholesterol levels and they are all at goal, no need for statin therapy at this time recommend that you get 30 minutes of exercise at least 4 days a week to keep your heart strong Pending Studies at Discharge: No Stand-Alone Forms: My [facility] Medications and DC Order Prescriptions: New azithromycin 500 mg tablet 500 mg PO DAILY 2 Days Qty: 2 RF: 0 aspirin [Ecotrin Low Strength] 81 mg Tablet,Delayed Release (Dr/Ec) 81 mg PO QAM 30 Days Qty: 30 RF: 0 amoxicillin-pot clavulanate 875-125 mg tablet 1 tab PO Q12H 3 Days Qty: 6 RF: 0 Continued ipratropium-albuterol 0.5 mg-3 mg(2.5 mg base)/3 mL solution for nebulization 3 ml inhalation Q4H PRN (Reason: shortness of breath or wheezing) Qty: 180 RF: 5 nebulizers misc .ROUTE .MEDSUPPLY Qty: 1 RF: 0 albuterol sulfate 90 mcg/actuation HFA aerosol inhaler 2 puffs inhalation Q4H Qty: 18 RF: 5 Breo Ellipta 100-25 mcg/dose blister with device 1 inh INH DAILY Qty: 1 RF: 5 Discontinued levofloxacin [Levaquin] 750 mg tablet 750 mg PO DAILY Qty: 14 RF: 0 prednisone 10 mg tablet See Rx Instructions PO DAILY Qty: 20 RF: 0 Discharge Orders: Discharge Order (Routine); Ordered 08/09/19 Ordered By: Renato Telles/Other Patient Handouts: Prediabetes, Diabetes Meal Planning Admission Data Admit Date/Time: 08/06/19 11:47 Attending Provider: Renato Guillermo Admit Provider: Jalen Robbins Primary Care Provider: Elvin Calle Other Providers: Elena Porter ; Manish Ware
[2019-08-09 23:20] LABS: Mycoplasma pneumoniae Ab, IgG 1.11 (<=0.90)
== END 2019-08-09 11:17 | disposition home or self-care (01) | DRG 871 ==
LOC: SUATTDRO 11:47 → 1E 11:47 → 2N 08-07 13:33

== ENCOUNTER 2019-12-12 16:52 | Inpatient (IN) ==
[2019-12-12] MEDS ORDERED: SODIUM CHLORIDE 0.9% 1000ML 1,000 ML IV SCH (17:15)
--- NOTE | 2019-12-12 17:21 | CT Scan Report ---
CT head/brain wo con CLINICAL HISTORY: 74 years-old Male presenting with Stroke Alert, difficulty walking, left-sided faci al droop, slurred speech. TECHNIQUE: Multidetector CT imaging of the head was performed without the use of intravenous contrast . IV contrast: None. One or more dose lowering techniques were used consistent with the principles of ALARA (as low as reasonably achievable), including automatic exposure control, mA or kV adjustment t o individual patient size, and/or use of iterative reconstruction. COMPARISON: None. CT DOSE (mGy.cm): The estimated cumulative dose is 537.48 mGy.cm. FINDINGS: Ward Assistant topogram: Unremarkable. Proportional ventricular and sulcal prominence, likely age-related parenchymal volume loss. No hemorr tommy. Periventricular and subcortical white matter hypoattenuation, nonspecific but likely indicative of chronic small vessel ischemic change. Old lacunar infarcts in the bilateral basal ganglia. Infarc t in the right caudate body is age indeterminate and measures 15 mm. No acute territorial infarct. No mass effect or midline shift. No extra-axial fluid collection. Paranasal sinuses and mastoid air christopher ls clear. Calvarium intact. IMPRESSION: 1. Age indeterminate lacunar infarct in the right caudate body. This may be acute. No hemorrhage. 2. Chronic small vessel ischemic change, and multiple bilateral basal ganglia old lacunar infarcts. These findings were discussed with emergency room physician by Dr. Morel on 12/12/2019 5:18 PM. ACT 112: Negative or not required by law. Electronically signed by: Sanya Morel M.D. 12/12/2019 5:20 PM
[2019-12-12 17:36] LABS: Basophils # (auto) 0.03 K/uL (0-0.2); Basophils % (auto) 0.3 %; Eosinophils # (auto) 0.44 K/uL (0-0.5); Eosinophils % (auto) 4.3 %; Hemoglobin 14.3 g/dL (14.0-18.0); Immature Granulocytes # (auto) 0.01 K/uL (0.00-0.02); Immature Granulocytes % (auto) 0.1 %; Lymphocytes # (auto) 1.57 K/uL (1.2-3.4); Lymphocytes % (auto) 15.5 %; Mean Corpuscular Hemoglobin 28.5 pg (25-34); Mean Corpuscular Volume 83.8 fL (80-100); Mean Platelet Volume 9.8 fL (7.4-10.4); Monocytes # (auto) 1.13 K/uL (0.11-0.59); Monocytes % (auto) 11.1 %; Neutrophils # (auto) 6.97 K/uL (1.4-6.5); Neutrophils % (auto) 68.7 %; Platelet Count 242 K/uL (130-400); RDW Coefficient of Variation 14.2 % (11.5-14.5); RDW Standard Deviation 43.4 fL (36.4-46.3); Red Blood Count 5.01 M/uL (4.7-6.1); White Blood Count 10.15 K/uL (4.8-10.8)
[2019-12-12] MEDS ORDERED: OPTIRAY 320 125ml IV PRN (17:36)
--- NOTE | 2019-12-12 17:42 | Emergency Department Note ---
Entered by Emma Fuller acting as a scribe for Chris Michel DO History of Present Illness General Chief complaint: Neuro Symptoms/Deficit Stated complaint: STROKE LIKE SYMPTOMS Time Seen by Provider: 12/12/19 17:13 Source: patient and family History of Present Illness Onset (ago): day(s) 3 Location: head (neuro symptoms/deficit) Pain Consistency: + constant Maximum Pain Intensity: 5 Associated symptoms: + denies other symptoms (heart palpitations), + weakness (increased falls, not with one side weaker than the other ) and + other (slurred speech 1 day ago around 6:00PM, left sided facial droop and trouble swallowing at 2:00PM today, right sided knee pain from recent fall) The patient is a 74 year old male on daily low dose Aspirin with a history of PE, cardiac catheterization, cardiac stent, CAD, COPD, bronchitis, pneumonia, DM, and knee surgery who presents to the Emergency Room with complaints of neuro symptoms/deficit. The patient's family states that he has been experiencing weakness for the past 3 days with increased falls but not with one side weaker than the other. Family reports that 1 day ago around 6:00PM the patient began to experience slurred speech. Today around 2:00PM his family noticed a left sided facial droop and trouble swallowing. However, the patient is currently alert and able to speak. His last known baseline normal was 4 days ago and he has not experienced any similar episodes in the past. Family also includes that he is compliant with all of his prescribed medications and took them today. The emiliano crook currently complains of right sided knee pain which began after a fall a few days ago. He also states that he did not experience heart palpitations today and does not have a history of Afib. The patient and his family offer no further concerns at this time. Home Medications Home Medications Medication Instructions Recorded Confirmed Type albuterol sulfate 90 mcg/actuation 2 puffs INHALATION Q4H #18 gm 07/31/19 12/12/19 Rx aerosol inhaler fluticasone furoate 100 1 inh INH DAILY #1 inhaler 07/31/19 12/12/19 Rx mcg-vilanterol 25 mcg/dose inhalation powder nebulizers #1 ea 07/31/19 12/09/19 Rx tamsulosin 0.4 mg capsule 0.4 mg PO DAILY #90 cap 10/13/19 12/12/19 Rx sildenafil (pulm.hypertension) 20 20 - 100 mg PO ONCE PRN #90 tab 11/09/19 12/12/19 Rx mg tablet aspirin 81 mg tablet,delayed 81 mg PO DAILY 12/09/19 12/12/19 History release Allergies Allergy/AdvReac Type Severity Reaction Status Date / Time fluticasone Allergy Mild Hives Verified 12/12/19 18:07 salmeterol Allergy Mild Hives Verified 12/12/19 18:07 Past Med/Surg History Medical History Arthritis Bronchitis CAD (coronary artery disease) (Chronic) COPD (chronic obstructive pulmonary disease) (Chronic) COPD (chronic obstructive pulmonary disease) Diabetes mellitus (Chronic) Elevated PSA Sleep apnea (Chronic) 09/14/2014- Urinary incontinence Surgical History H/O knee surgery History of cardiac catheterization 05/01/2010-PCI of OM 2 with CAROLINE Family History Mother Heart disease Hypertension Social History Preferred Language: Irish Communication Ability: Effective Visual Impairment: No Limitations Hearing Ability: Use of Hearing Aid Netting Inspector Required: No Beliefs That Will Affect Care: None marital status: / Current Living Situation: Alone Current Living Situation Comment: with significant other. Son yemi lives within a few minutes current occupational status: retired Other Information That Helps Us Care for You: No Feels Safe at Home: Yes Safety Concerns: Feels Safe At This Time Smoking Status: Former smoker Tobacco Type: cigarettes and smokeless tobacco ; Age Started Using Tobacco: 15 ; Age Quit Using Tobacco: 30 ; packs per day: 2 ; Smoking End Date: 44 years ago ; Number of Years Since Quit: 44 ; Second Hand Exposure: Yes ; Hx Alcohol Use: Yes Alcohol type: beer Hx Substance Use: No Diet Comment: regular caffeine: Yes during the past year weight has: decreased > 10 lbs Dental Care, Regularly: Yes Physical Activity Frequency: Does not Exercise Seatbelt Use: always Sunscreen Use: No Review of Systems See HPI for pertinent positives & negatives. and A total of 10 systems reviewed and were otherwise negative Physical Exam Vital Signs Vital Signs - 24 hr 12/12/19 17:00 12/12/19 17:17 12/12/19 17:21 Temperature 36.7 C Temperature Source Oral Pulse Rate 88 91 H 97 H Pulse Rate [Right Finger] 93 H Respiratory Rate 18 25 H 22 Respiratory Effort / Characteristics Non-Labored Non-Labored Respiratory Depth Normal Normal Respiratory Pattern Regular Blood Pressure 176/69 H 168/82 H Blood Pressure [Right Arm] 168/82 H Blood Pressure Mean 104 126 Blood Pressure Mean [Right Arm] 110 Blood Pressure Position Sitting Blood Pressure Position [Right Arm] Lying Pulse Oximetry 96 96 96 Oxygen Delivery Method Room Air Room Air Sepsis Recent Fever Within 48 Hours No Sepsis Action Taken by Nursing No Action Required 12/12/19 17:30 12/12/19 17:31 12/12/19 17:43 Temperature Temperature Source Pulse Rate 83 88 Pulse Rate [Right Finger] Respiratory Rate 20 24 Respiratory Effort / Characteristics Respiratory Depth Respiratory Pattern Blood Pressure 153/105 H Blood Pressure [Right Arm] Blood Pressure Mean 93 121 Blood Pressure Mean [Right Arm] Blood Pressure Position Blood Pressure Position [Right Arm] Pulse Oximetry 97 96 95 Oxygen Delivery Method Sepsis Recent Fever Within 48 Hours Sepsis Action Taken by Nursing 12/12/19 17:45 12/12/19 17:49 12/12/19 17:50 Temperature Temperature Source Pulse Rate 92 H 86 Pulse Rate [Right Finger] Respiratory Rate 28 H 18 Respiratory Effort / Characteristics Respiratory Depth Respiratory Pattern Blood Pressure 153/105 H Blood Pressure [Right Arm] Blood Pressure Mean 115 Blood Pressure Mean [Right Arm] Blood Pressure Position Blood Pressure Position [Right Arm] Pulse Oximetry 95 97 97 Oxygen Delivery Method Room Air Sepsis Recent Fever Within 48 Hours Sepsis Action Taken by Nursing 12/12/19 18:00 12/12/19 18:01 12/12/19 18:28 Temperature Temperature Source Pulse Rate 80 84 Pulse Rate [Right Finger] 78 Respiratory Rate 23 19 24 Respiratory Effort / Characteristics Respiratory Depth Respiratory Pattern Blood Pressure 150/112 H Blood Pressure [Right Arm] 178/85 H Blood Pressure Mean 135 Blood Pressure Mean [Right Arm] 116 Blood Pressure Position Blood Pressure Position [Right Arm] Pulse Oximetry 98 97 97 Oxygen Delivery Method Room Air Sepsis Recent Fever Within 48 Hours Sepsis Action Taken by Nursing GENERAL: The patient is awake and alert. He is somewhat anxious appearing. EYES: The conjunctivae are clear. The pupils are round and reactive. EARS, NOSE, MOUTH AND THROAT: The nose is without any evidence of any deformity. Mucous membranes are moist. Tongue is midline. NECK: The neck is nontender and supple. No bruit was noted to auscultation. RESPIRATORY: Normal respiratory effort is noted there is no evidence of wheezing rhonchi or rales CARDIOVASCULAR: Irregular rhythm was noted to auscultation. There was no definite murmur. GASTROINTESTINAL: The abdomen is soft. Abdomen is nontender. MUSCULOSKELETAL/EXTREMITIES: There is no evidence of gross deformity full range of motion is noted in the hips and shoulders. There is tenderness over the right knee consistent with the patient's recent fall. SKIN: There is no obvious evidence of any rash. Trace pedal edema was noted bilaterally. NEUROLOGIC: Patient is awake alert and oriented x3. There is a left facial dr oop with forehead sparing. Speech was slurred. Patient has no drift in the upper extremities. He is able to lift each leg off the bed for 5 seconds. Course Course 1713: Past medical records reviewed. The patient was evaluated in room B01. A complete history and physical exam was performed. 1724: I spoke with Dr. Sharp [place] [facility] who states that if something is seen on the angio she will evaluate the patient. 1739: I spoke to Dr. El for Dr. George who recommends a repeat set of cardiac enzymes, EKG, and then to determine the patient's disposition from there. 1801: I checked on the patient and updated his family. 1805: I spoke to Dr. Queen who will further evaluate the patient. 1815: I re-checked the patient and updated him and his family on plan to admit. The patient verbally expressed understanding and agreement of the treatment plan. The patient will be evaluated for further treatment. Administered Medications Albuterol (Duoneb) 3 ml NEB Q6H PRN PRN Reason: Shortness of breath, chest tightness, wheezing Stop: 01/11/20 21:29 Last Admin: 12/13/19 10:29 Dose: 3 ml Documented by: [id number] Clopidogrel [facility]ate (Plavix) [facility] [place] Stop: 01/12/20 08:59 Last Admin: 12/13/19 10:22 Dose: Not Given Documented by: [id number] Fluticasone/Vilanterol (Breo Ellipta 100/25 Mcg Inh) 1 puffs INH DAILY [facility] Stop: 01/12/20 08:59 Last Admin: 12/13/19 07:54 Dose: 1 puffs Documented by: [id number] Gadobutrol (Gadavist 65ml) 10 ml IV ONCE PRN PRN Reason: Interaction Checking Stop: 12/16/19 20:55 Last Admin: 12/12/19 20:56 Dose: 10 ml Documented by: [id number] Lactated Ringer's (Lr) 1,000 mls @ 125 mls/hr IV .Q8H ADOLFO Stop: 01/11/20 19:59 Last Admin: 12/13/19 07:54 Dose: 125 mls/hr Documented by: [id number] Infusion: 12/13/19 06:09 Dose: 125 mls/hr Documented by: [id number] Admin: 12/12/19 22:09 Dose: 125 mls/hr Documented by: [id number] Heparin Sodium/Dextrose (Heparin Sodium/Dextrose) 25,000 units in 500 mls @ 26 mls/hr IV .[id number] [facility]; Protocol Stop: 01/12/20 05:29 Last Titration: 12/13/19 14:27 Dose: 1,300 units/hr, 26 mls/hr Documented by: [id number] Cosigned by: [id number] Titration: 12/13/19 13:23 Dose: 0 units/hr, 0 mls/hr Documented by: [id number] Cosigned by: [id number] Titration: 12/13/19 07:17 Dose: 1,550 units/hr, 31 mls/hr Documented by: [id number] Cosigned by: [id number] Admin: 12/13/19 06:06 Dose: 1,550 units/hr, 31 mls/hr Documented by: [id number] Cosigned by: [id number] Ioversol (Optiray 320 125ml) 119 ml IV ONCE PRN PRN Reason: Interaction Checking Stop: 12/16/19 17:35 Last Admin: 12/12/19 17:36 Dose: 119 ml Documented by: [id number] Ioversol (Optiray 320 125ml) 118 ml IV ONCE PRN PRN Reason: Interaction Checking Stop: 12/17/19 05:27 Last Admin: 12/13/19 05:28 Dose: 1 ml Documented by: [id number] Polyethylene Glycol (Miralax Powder Packet) 17 gm PO BID [facility] Stop: 01/12/20 08:59 Last Admin: 12/13/19 10:24 Dose: Not Given Documented by: [id number] Discontinued Medications Fluticasone/Vilanterol (Breo Ellipta 100/25 Mcg Inh) 1 puffs INH ONE ONE Stop: 12/12/19 23:03 Last Admin: 12/13/19 00:39 Dose: 1 puffs Documented by: [id number] Heparin Sodium/Dextrose () 1 ea IV Q15M [facility]; Protocol Stop: 01/12/20 05:32 Last Admin: 12/13/19 07:48 Dose: Not Given Documented by: [id number] Admin: 12/13/19 07:48 Dose: Not Given Documented by: [id number] Sodium Chloride (Nss 1000ml) 1,000 mls @ 50 mls/hr IV .Q20H [facility] Stop: 01/11/20 17:14 Last Infusion: 12/13/19 02:07 Dose: 0 mls/hr Documented by: [id number] Admin: 12/12/19 17:28 Dose: 50 mls/hr Documented by: [id number] Potassium Chloride (K Johnson / Wtr) 10 meq in 100 mls @ 100 mls/hr IV Q1H [facility] Stop: 12/13/19 01:03 Last Infusion: 12/13/19 02:06 Dose: 0 mls/hr Documented by: [id number] Admin: 12/13/19 00:45 Dose: 100 mls/hr Documented by: [id number] Infusion: 12/13/19 00:39 Dose: 0 mls/hr Documented by: [id number] Admin: 12/12/19 23:34 Dose: 100 mls/hr Documented by: [id number] Famotidine 20 mg/ Syringe 5 mls @ 2.5 mls/min IV ONE STA Stop: 12/12/19 23:12 Last Admin: 12/12/19 23:37 Dose: 2.5 mls/min Documented by: [id number] Ketorolac Tromethamine (Toradol) 15 mg IV NOW ONE Stop: 12/13/19 11:41 Last Admin: 12/13/19 13:17 Dose: 15 mg Documented by: [id number] Labetalol HCl (Normodyne) 10 mg IV NOW STA Stop: 12/13/19 05:21 Last Admin: 12/13/19 06:09 Dose: Not Given Documented by: [id number] Perflutren Lipid Microsphere (Definity) 2 ml IV ONCE ONE Stop: 12/13/19 08:26 Last Admin: 12/13/19 08:26 Dose: 2 ml Documented by: [id number] Tamsulosin HCl (Flomax) 0.4 mg PO NOW ONE Stop: 12/12/19 23:04 Last Admin: 12/12/19 23:37 Dose: Not Given Documented by: [id number] Medical Decision Making Differential Diagnosis Differential Diagnosis includes but is not limited to ischemic Stroke, hemorrhagic stroke, bells palsy, mass, neoplasm, migraine headache, seizure, subarachnoid hemorrhage, TIA, and transient global amnesia. Medical Records Attestation: I reviewed the patient's medical records. Home Medications Current Medication List: was personally reviewed by me Laboratory Data Attestation: I reviewed the patient's lab results. Result diagrams: 12/13/19 04:26 12/13/19 04:26 Lab Results 12/12/19 12/12/19 12/12/19 Range/Units 17:16 17:16 17:16 WBC 10.15 (4.8-10.8) K/uL RBC 5.01 (4.7-6.1) M/uL Hgb 14.3 (14.0-18.0) g/dL Hct 42.0 (42-52) % MCV 83.8 (80-100) fL MCH 28.5 (25-34) pg MCHC 34.0 (32-36) g/dL RDW Std Deviation 43.4 (36.4-46.3) fL RDW Coeff of Katlin 14.2 (11.5-14.5) % Plt Count 242 (130-400) K/uL MPV 9.8 (7.4-10.4) fL Immature Gran % (Auto) 0.1 % Neut % (Auto) 68.7 % Lymph % (Auto) 15.5 % Eddy % (Auto) 11.1 % Eos % (Auto) 4.3 % Baso % (Auto) 0.3 % Immature Gran # (Auto) 0.01 (0.00-0.02) K/uL Neut # (Auto) 6.97 H (1.4-6.5) K/uL Lymph # (Auto) 1.57 (1.2-3.4) K/uL Eddy # (Auto) 1.13 H (0.11-0.59) K/uL Eos # (Auto) 0.44 (0-0.5) K/uL Baso # (Auto) 0.03 (0-0.2) K/uL PT 10.6 (9.0-12.0) Seconds INR 1.0 (0.9-1.1) APTT 44.9 H (21.0-31.0) Seconds PTT Ratio 1.7 Sodium 142 (136-145) mmol/L Potassium 3.3 L (3.5-5.1) mmol/L Chloride 109 H (98-107) mmol/L Carbon Dioxide 26 (21-32) mmol/L Anion Gap 7.0 (3-11) BUN 21 H (7-18) mg/dl Creatinine 1.06 (0.6-1.4) mg/dl Est Cr Clr Drug Dosing 73.8 ml/min Est GFR ( Amer) 79.7 Est GFR (Non-Af Amer) 68.8 BUN/Creatinine Ratio 19.3 (10-20) Glucose 176 H (70-99) mg/dl POC Glucose (70-99) mg/dl Calcium 8.9 (8.5-10.1) mg/dl Magnesium 2.1 (1.8-2.4) mg/dl Total Bilirubin 0.8 (0.2-1) mg/dl AST 21 (15-37) U/L ALT 22 (12-78) U/L Alkaline Phosphatase 115 (45-117) U/L Troponin I < 0.015 (0-0.045) ng/ml Total Protein 7.2 (6.4-8.2) gm/dl Albumin 3.7 (3.4-5.0) gm/dl Globulin 3.5 (2.5-4.0) gm/dl Albumin/Globulin Ratio 1.1 (0.9-2) Blood Type Antibody Screen 12/12/19 12/12/19 Range/Units 17:17 17:29 WBC (4.8-10.8) K/uL RBC (4.7-6.1) M/uL Hgb (14.0-18.0) g/dL Hct (42-52) % MCV (80-100) fL MCH (25-34) pg MCHC (32-36) g/dL RDW Std Deviation (36.4-46.3) fL RDW Coeff of Katlin (11.5-14.5) % Plt Count (130-400) K/uL MPV (7.4-10.4) fL Immature Gran % (Auto) % Neut % (Auto) % Lymph % (Auto) % Eddy % (Auto) % Eos % (Auto) % Baso % (Auto) % Immature Gran # (Auto) (0.00-0.02) K/uL Neut # (Auto) (1.4-6.5) K/uL Lymph # (Auto) (1.2-3.4) K/uL Eddy # (Auto) (0.11-0.59) K/uL Eos # (Auto) (0-0.5) K/uL Baso # (Auto) (0-0.2) K/uL PT (9.0-12.0) Seconds INR (0.9-1.1) APTT (21.0-31.0) Seconds PTT Ratio Sodium (136-145) mmol/L Potassium (3.5-5.1) mmol/L Chloride (98-107) mmol/L Carbon Dioxide (21-32) mmol/L Anion Gap (3-11) BUN (7-18) mg/dl Creatinine (0.6-1.4) mg/dl Est Cr Clr Drug Dosing ml/min Est GFR ( Amer) Est GFR (Non-Af Amer) BUN/Creatinine Ratio (10-20) Glucose (70-99) mg/dl POC Glucose 145 H (70-99) mg/dl Calcium (8.5-10.1) mg/dl Magnesium (1.8-2.4) mg/dl Total Bilirubin (0.2-1) mg/dl AST (15-37) U/L ALT (12-78) U/L Alkaline Phosphatase (45-117) U/L Troponin I (0-0.045) ng/ml Total Protein (6.4-8.2) gm/dl Albumin (3.4-5.0) gm/dl Globulin (2.5-4.0) gm/dl Albumin/Globulin Ratio (0.9-2) Blood Type O Positive Antibody Screen NEGATIVE Imaging Data Radiologist's Impression: Radiology results as stated below per my review and the radiologist's interpretation: XR chest 1V portable CLINICAL HISTORY: 74 years-old Male presenting with stroke alert. TECHNIQUE: Portable upright AP view of the chest was obtained. COMPARISON: 12/09/2019. FINDINGS: Atherosclerosis of the aortic arch. Cardiac silhouette normal in size. Elevation of the right hemidiaphragm. Minimal right basilar opacity. No large effusion or pneumothorax. Degenerative changes of the thoracic spine. Upper abdomen normal. IMPRESSION: 1. Minimal right basilar opacities likely atelectasis or scarring. No convincin g evidence of acute cardiopulmonary disease. ACT 112: Negative or not required by law. Electronically signed by: Sanya Morel M.D. 12/12/2019 6:[address] head/brain wo con CLINICAL HISTORY: 74 years-old Male presenting with Stroke Alert, difficulty walking, left-sided facial droop, slurred speech. TECHNIQUE: Multidetector CT imaging of the head was performed without the use of intravenous contrast. IV contrast: None. One or more dose lowering techniques were used consistent with the principles of ALARA (as low as reasonably achievable), including automatic exposure control, mA or kV adjustment to individual patient size, and/or use of iterative reconstruction. COMPARISON: None. CT DOSE (mGy.cm): The estimated cumulative dose is 537.48 mGy.cm. FINDINGS: Liquified [employer] Technician topogram: Unremarkable. Proportional ventricular and sulcal prominence, likely age-related parenchymal volume loss. No hemorrhage. Periventricular and subcortical white matter hypoattenuation, nonspecific but likely indicative of chronic small vessel ischemic change. Old lacunar infarcts in the bilateral basal ganglia. Infarct in the right caudate body is age indeterminate and measures 15 mm. No acute territorial infarct. No mass effect or midline shift. No extra-axial fluid collection. Paranasal sinuses and mastoid air cells clear. Calvarium intact. IMPRESSION: 1. Age indeterminate lacunar infarct in the right caudate body. This may be acute. No hemorrhage. 2. Chronic small vessel ischemic change, and multiple bilateral basal ganglia old lacunar infarcts. These findings were discussed with emergency room physician by Dr. Morel on 12/12/2019 5:18 PM. ACT 112: Negative or not required by law. Electronically signed by: Sanya Morel M.D. 12/12/2019 5:[address] angio head w con CLINICAL HISTORY: 74 years-old Male presenting with weak, stroke alert, left- sided facial droop, slurred speech, difficulty walking for 3 days. TECHNIQUE: Multidetector CT angiography of the head was performed after the administration of intravenous contrast. 3-D volumetric and/or maximum intensity projection (MIP) images were subsequently reconstructed for review. IV contrast: 119 mL of Optiray 320. One or more dose lowering techniques were used consistent with the principles of ALARA (as low as reasonably achievable), including automatic exposure control, mA or kV adjustment to individual patient size, and/or use of iterative reconstruction. COMPARISON: None. CT DOSE (mGy.cm): The estimated cumulative dose is 605.56. FINDINGS: Liquified [employer] Technician topogram: Unremarkable. Anterior circulation: Atherosclerosis of the cavernous segments of the internal carotid arteries. Intracranial portions of the internal carotid arteries patent to the level of the termini. Right anterior cerebral artery (MADI) patent. Hypoplastic or aplastic A1 segment of the left MADI. Middle cerebral arteries patent. Anterior communicating artery patent. Posterior circulation: Codominant vertebral arteries. Intradural portions of the vertebral arteries patent. Posterior inferior cerebellar arteries patent. Basilar artery patent. Anterior inferior cerebellar arteries poorly visualized. Superior cerebellar arteries patent. Posterior cerebral arteries patent. Posterior communicating arteries patent. Dural venous sinuses: Patent. Other: Limited lacunar infarcts in the bilateral basal ganglia with the age indeterminate infarct in the right caudate body again noted. Extensive chronic small vessel ischemic change. Mucosal thickening in the left maxillary sinus and left ethmoid air cells. Calvarium intact. IMPRESSION: 1. No evidence of aneurysm, focal vessel occlusion, or significant stenosis of the intracranial arteries. ACT 112: Negative or not required by law. Electronically signed by: Sanya Morel M.D. 12/12/2019 5:[address] angio neck with con CLINICAL HISTORY: 74 years-old Male presenting with weak, difficulty walking for 3 days, left-sided facial droop, slurred speech, concern for stroke. TECHNIQUE: Multidetector CT angiography of the neck was performed after the administration of intravenous contrast. 3-D volumetric and/or maximum intensity projection (MIP) images were subsequently reconstructed for review. IV contrast: 119 mL of Optiray 320. One or more dose lowering techniques were used consistent with the principles of ALARA (as low as reasonably achievable), including automatic exposure control, mA or kV adjustment to individual patient size, and/or use of iterative reconstruction. Stenosis measurements were based on NASCET-like criteria (distal lumen diameter as the denominator for stenosis measurement). COMPARISON: None. CT DOSE (mGy.cm): The estimated cumulative dose is 605.56 mGy.cm. FINDINGS: Liquified [employer] Technician topogram: Unremarkable. Aortic arch: Atherosclerosis of the three-vessel aortic arch with patent origins of the branch vessels. Innominate artery: Patent. Right subclavian artery: Patent. Right common carotid artery: Patent. Right internal and external carotid arteries: Right carotid bifurcation patent. Right internal and external carotid arteries widely patent. Left common carotid artery: Patent. Left internal and external carotid arteries: Left carotid bifurcation patent. Left internal and external carotid arteries widely patent. Left subclavian artery: Patent. Vertebral arteries: Left dominant vertebral artery. Origins and courses of the bilateral vertebral arteries patent. Other: Limited intracranial evaluation within normal limits. Nodule noted in the left lobe of the thyroid. Mucosal thickening in the left maxillary sinus. Degenerative changes of the cervical spine. Lung apices clear. IMPRESSION: 1. No evidence of dissection, focal vessel occlusion, or significant stenosis of the cervical arteries. ACT 112: Negative or not required by law. Electronically signed by: Sanya Morel M.D. 12/12/2019 5:54 PM ECG Data Attestation: I personally reviewed and interpreted this ECG as follows: Indication: + other (stroke alert) Rate (beats per minute): 87 Rhythm: + atrial fibrillation ECG Findings: + Other (RBBB pattern noted); no PVCs Comparison ECG Date: from (08/06/19) Change: the following changes noted (Afib has replaced sinus rhythm) Blood Pressure Blood Pressure Findings: Elevated blood pressure Blood Pressure Disposition: further management by hospitalist JULY Archer The patient is a 74-year-old male who presented to the emergency department for an evaluation of strokelike symptoms. The patient was made a stroke alert from triage. He was taken directly to CT. On my evaluation the patient had significant neurologic deficits but upon questioning of him and his significant other it appears that the symptoms have been waxing and waning for at least 24 hours and possibly longer. The patient did not appear to be a candidate for TPA. CT angiography was then obtained but revealed no signs of large vessel occlusion. The patient was found to be in atrial fibrillation which he states is a new diagnosis for him. The patient states that he was recently diagnosed with a pulmonary embolism but is anticoagulation was stopped because he was bleeding and was a fall risk. I discussed the patient's laboratory and radiographic studies with him. I also discussed his case with the stroke neurologist from [facility]. I also discussed this case with the on-call [facility] hospitalist group. They have agreed to evaluate the patient in the emergency department for further management disposition. The patient was reevaluated multiple times. His symptoms remain unchanged. At this time the patient is still pending other neuroimaging. Impression & Plan Acute ischemic stroke, A-fib Discharge Plan Visit Data *Final* Discharge Date/Time: 12/12/19 20:47 Chief Complaint: Neuro Symptoms/Deficit Stated Complaint: STROKE LIKE SYMPTOMS ED Provider: Chris Michel Discharge Problem: Acute ischemic stroke, A-fib Patient Disposition: Admitted As Inpatient Discharge Instructions Interventions: ED Discharge Assessment Last Done: 12/12/19 20:47 Discharge Problem: A-fib Qualifiers: Atrial fibrillation type: paroxysmal Qualified Code(s): I48.0 - Paroxysmal atrial fibrillation The scribe's documentation has been prepared under my direction and personally reviewed by me in its entirety. I confirm that the note above accurately reflects all work, treatment, procedures, and medical decision making performed by me.
[2019-12-12 17:46] LABS: Partial Thromboplastin Ratio 1.7; Partial Thromboplastin Time 44.9 Seconds (21.0-31.0); Prothrombin Time 10.6 Seconds (9.0-12.0)
[2019-12-12 17:53] LABS: Alanine Aminotransferase 22 U/L (12-78); Albumin Level 3.7 gm/dl (3.4-5.0); Aspartate Aminotransferase 21 U/L (15-37); BUN Creatinine Ratio 19.3 (10-20); Blood Urea Nitrogen 21 mg/dl (7-18); Calcium 8.9 mg/dl (8.5-10.1); Carbon Dioxide 26 mmol/L (21-32); Chloride 109 mmol/L (98-107); Creatinine Clr Calc Pharmacy 73.8 ml/min; Est GFR (African American) 79.7; Est GFR (Non-African American) 68.8; Glucose 176 mg/dl (70-99); Magnesium 2.1 mg/dl (1.8-2.4); Potassium 3.3 mmol/L (3.5-5.1); Sodium 142 mmol/L (136-145)
--- NOTE | 2019-12-12 17:55 | CT Scan Report ---
CT angio neck with con CLINICAL HISTORY: 74 years-old Male presenting with weak, difficulty walking for 3 days, left-sided f acial droop, slurred speech, concern for stroke. TECHNIQUE: Multidetector CT angiography of the neck was performed after the administration of intrave nous contrast. 3-D volumetric and/or maximum intensity projection (MIP) images were subsequently sd nstructed for review. IV contrast: 119 mL of Optiray 320. One or more dose lowering techniques were u sed consistent with the principles of ALARA (as low as reasonably achievable), including automatic ex posure control, mA or kV adjustment to individual patient size, and/or use of iterative reconstructio n. Stenosis measurements were based on NASCET-like criteria (distal lumen diameter as the denominator for stenosis measurement). COMPARISON: None. CT DOSE (mGy.cm): The estimated cumulative dose is 605.56 mGy.cm. FINDINGS: Store Leader topogram: Unremarkable. Aortic arch: Atherosclerosis of the three-vessel aortic arch with patent origins of the branch vessel s. Innominate artery: Patent. Right subclavian artery: Patent. Right common carotid artery: Patent. Right internal and external carotid arteries: Right carotid bifurcation patent. Right internal and ex ternal carotid arteries widely patent. Left common carotid artery: Patent. Left internal and external carotid arteries: Left carotid bifurcation patent. Left internal and exter nal carotid arteries widely patent. Left subclavian artery: Patent. Vertebral arteries: Left dominant vertebral artery. Origins and courses of the bilateral vertebral ar teries patent. Other: Limited intracranial evaluation within normal limits. Nodule noted in the left lobe of the thy roid. Mucosal thickening in the left maxillary sinus. Degenerative changes of the cervical spine. Dinorah g apices clear. IMPRESSION: 1. No evidence of dissection, focal vessel occlusion, or significant stenosis of the cervical arteri es. ACT 112: Negative or not required by law. Electronically signed by: Sanya Morel M.D. 12/12/2019 5:54 PM
[2019-12-12 17:57] LABS: Albumin Globulin Ratio 1.1 (0.9-2); Alkaline Phosphatase 115 U/L (45-117); Bilirubin,Total 0.8 mg/dl (0.2-1); Globulin 3.5 gm/dl (2.5-4.0); Total Protein 7.2 gm/dl (6.4-8.2); Troponin I < 0.015 ng/ml (0-0.045)
--- NOTE | 2019-12-12 17:59 | CT Scan Report ---
CT angio head w con CLINICAL HISTORY: 74 years-old Male presenting with weak, stroke alert, left-sided facial droop, slur red speech, difficulty walking for 3 days. TECHNIQUE: Multidetector CT angiography of the head was performed after the administration of intrave nous contrast. 3-D volumetric and/or maximum intensity projection (MIP) images were subsequently ds nstructed for review. IV contrast: 119 mL of Optiray 320. One or more dose lowering techniques were u sed consistent with the principles of ALARA (as low as reasonably achievable), including automatic ex posure control, mA or kV adjustment to individual patient size, and/or use of iterative reconstructio n. COMPARISON: None. CT DOSE (mGy.cm): The estimated cumulative dose is 605.56. FINDINGS: Marine Photographer topogram: Unremarkable. Anterior circulation: Atherosclerosis of the cavernous segments of the internal carotid arteries. Int racranial portions of the internal carotid arteries patent to the level of the termini. Right anterio r cerebral artery (MADI) patent. Hypoplastic or aplastic A1 segment of the left MADI. Middle cerebral a rteries patent. Anterior communicating artery patent. Posterior circulation: Codominant vertebral arteries. Intradural portions of the vertebral arteries p atent. Posterior inferior cerebellar arteries patent. Basilar artery patent. Anterior inferior cerebe llar arteries poorly visualized. Superior cerebellar arteries patent. Posterior cerebral arteries pat ent. Posterior communicating arteries patent. Dural venous sinuses: Patent. Other: Limited lacunar infarcts in the bilateral basal ganglia with the age indeterminate infarct in the right caudate body again noted. Extensive chronic small vessel ischemic change. Mucosal thickenin g in the left maxillary sinus and left ethmoid air cells. Calvarium intact. IMPRESSION: 1. No evidence of aneurysm, focal vessel occlusion, or significant stenosis of the intracranial antonio kevon. ACT 112: Negative or not required by law. Electronically signed by: Sanya Morel M.D. 12/12/2019 5:57 PM
--- NOTE | 2019-12-12 18:26 | XRay Report ---
XR chest 1V portable CLINICAL HISTORY: 74 years-old Male presenting with stroke alert. TECHNIQUE: Portable upright AP view of the chest was obtained. COMPARISON: 12/09/2019. FINDINGS: Atherosclerosis of the aortic arch. Cardiac silhouette normal in size. Elevation of the right hemidia phragm. Minimal right basilar opacity. No large effusion or pneumothorax. Degenerative changes of the thoracic spine. Upper abdomen normal. IMPRESSION: 1. Minimal right basilar opacities likely atelectasis or scarring. No convincing evidence of acute c ardiopulmonary disease. ACT 112: Negative or not required by law. Electronically signed by: Sanya Morel M.D. 12/12/2019 6:24 PM
--- NOTE | 2019-12-12 18:58 | XRay Report ---
XR knee RT 1 or 2V routine CLINICAL HISTORY: 74 years-old Male presenting with right knee effusion s/p fall. TECHNIQUE: Frontal and lateral views of the right knee were obtained. COMPARISON: None. FINDINGS: Knee joint congruent. No acute fracture or malalignment. Trace osteophytosis in the medial lateral co mpartments. More significant osteophytosis in the patellofemoral compartment. Large knee joint effusi on. IMPRESSION: 1. No acute osseous injury. 2. Large knee joint effusion. This does not appear to represent a lipohemarthrosis to suggest intra- articular fracture. 3. Tricompartmental degenerative changes most severe in the patellofemoral compartment. ACT 112: Negative or not required by law. Electronically signed by: Sanya Morel M.D. 12/12/2019 6:56 PM
--- NOTE | 2019-12-12 19:00 | XRay Report ---
XR wrist RT w scaphoid CLINICAL HISTORY: 74 years-old Male presenting with base of 1st MT pain. TECHNIQUE: Frontal, bilateral oblique, lateral, and scaphoid views of the right wrist were obtained. COMPARISON: None. FINDINGS: Peripheral intravascular line projects over the wrist mildly degrading evaluation. The scaphoid is ra diographically normal. No acute fracture or malalignment. Mild osteophytosis at the first carpometaca rpal articulation and to a lesser extent at the first metacarpophalangeal joint. Soft tissue swelling over the radial aspect of the first CMC joint. IMPRESSION: 1. Soft tissue swelling associated with the radial aspect of the first CMC joint, where there is deg enerative change. 2. No acute osseous injury. ACT 112: Negative or not required by law. Electronically signed by: Sanya Morel M.D. 12/12/2019 6:58 PM
--- NOTE | 2019-12-12 19:43 | History & Physical Report ---
Date of Service December 12, 2019 Assessment & Plan (1) Acute ischemic stroke: Suspect cardioembolic. (see below for A. fib). Stoke without tPA order set - neuro checks Will allow permissive hypertension overnight however likely he is almost 24 hours out at this time therefore a lower blood pressure is less concerning. NIH stroke score 6 when seen on admission (already improving as per family members). Echo Main symptoms of mild left lower extremity weakness and left facial droop and dysarthria Consult neurology - discussed timing of heparin drip with Dr Moulton, given findings on MRI will defer anticoagulation for now since early initiation increases hemorrhagic conversion and has no effect on further strokes. (2) Paroxysmal atrial fibrillation: New onset. Self converted in ER. He was rate controlled without medication. No alcohol history. TSH with AM labs. Echo Will defer anticoagulation as above. (3) Pulmonary embolism: Recent history of this which was untreated. Tried taking xarelto but c aused hematuria. Small filling defect in 3rd order artery left lower lobe picked up incidentally on follow up CT for pneumonia. No tachycardia and on room air, therefore do not feel this is emergent to treat in light of increased hemorrhagic transformation risk. (4) Urinary incontinence: Prescribed mybetriq PRN (see last urology note), therefore presumably has overactive bladder. Will monitor for now. (5) Sleep apnea: Trial BiPAP at night although patient has been intolerant to CPAP at home. (6) Diabetes mellitus: Unclear diagnosis disputed by family ?steroid induced previously. HbA1C 6.4 in August. BSG ACHS (7) CAD (coronary artery disease): 2009 - PCI to OM2 with CAROLINE, patient notes being stable for years. No chest pain or shortness of breath on exertion. (8) COPD (chronic obstructive pulmonary disease): No acute exacerbation Breo Ellipta 1 puff BID Duonebs Q4H PRN (9) BPH (benign prostatic hyperplasia): Continue tamsulosin (10) Fatigue: Suspect multifactorial with recent falls and knee pain. No infective etiologies found and patient recently had CT chest, abdomen and pelvis. Possible PE getting larger however he is not tachycardic or hypoxic. (11) Ambulatory dysfunction: Suspect initially was due to knee pain after his first fall. However possible he had a stroke on Saturday in addition. Either way will need PT/OT. If not doing well with rehab consider ortho consult to drain off some of the fluid. History concerning for spinal stenosis and he has some history of this, however no urinary or bowel acute incontinence and his power in his legs is actually good - mostly proximal muscle weakness, therefore imaging deferred at this time. (12) Oropharyngeal dysphagia: Speech need to see prior to any diet. LR 125ml/hr running for hydration prior to this. Clear risks of aspiration from history. Likely to need outpatient services in addition. (13) DVT prophylaxis: SCDs, will defer anticoagulation as above. (14) Discharge planning issues: PT/OT/Speech History of Present Illness Chief Complaint: Stroke-like symptoms Primary Care Provider: ROWAN Melo Kei Lassiter is a 74 year old male with a complex recent history culminating in stroke-like symptoms of left facial droop and dysarthria. His stroke-like symptoms started yesterday around 9pm. In hindsight he was having slurring speech and difficulty swallow (keeping food in mouth for a long time and producing a lot more phlegm throughout the day). His speech in the morning was normal. His partner felt he was just getting tired at the time as he had been all week. This morning his speech had returned to normal and he had no problems swallowing breakfast. His partner left the house around 9:30am and came back around 2pm at which time she noticed left facial droop and called EMS. He was again having slurred speech at that time. Telestroke call was placed in ER and since he was outside the time for tPA management here was decided. He has also had less definitive symptoms throughout the week related to falls. Since Dec 07 he started coughing more and having chills - since then he has been living with his partner. Worried about another PNA (he was septic with PNA in Aug) they went to [facility] and felt he was dehydrated but no definitive PNA on CXR. His first fall was the same night on . His partner felt because it was an exhausting day of seeing the doctor and having CXR - she just felt he had been warn out. That night around 3am Kei tried to get out of bed to go to the bathroom and his legs gave out (both, not one-sided). He didn't call for his partner and tried to get up himself spending around 45 minutes on the floor. Once found his partner called EMS lift assist to get him back up. The following day he was quite lethargic and was napping a lot during the day although this is not unusual for him (he has HEYDI and non-compliant with CPAP), his main issue was knee pain from the night before. night he fell again trying to get of bed and Saturday trying to het off the toilet. No LOC. No prodromal symptoms. Both legs feel equally weak. 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 Lower extremity doppler at this time was negative for DVT. Started on Xarelto . Stopped on Xarelto due to hematuria. Went to [facility] ER on Nov 30 and treated with keflex for presumed hemorrhagic cystitis (he didn't ever use this though). Hematuria lasted for about a week. CT A/P on showed no acute findings to explain heamturia. Lower lungs noted interval development of streaky slightly irregular but linear density in posterior aspect of the left lung base. With regards to his COPD - his partner reports he is worse in winter, main symptom is coughing Allergies Allergy/AdvReac Type Severity Reaction Status Date / Time fluticasone Allergy Mild Hives Verified 12/12/19 18:07 salmeterol Allergy Mild Hives Verified 12/12/19 18:07 Home Medications Home Medications Medication Instructions Recorded Confirmed Type albuterol sulfate 90 mcg/actuation 2 puffs INHALATION Q4H #18 gm 07/31/19 12/12/19 Rx aerosol inhaler fluticasone furoate 100 1 inh INH DAILY #1 inhaler 07/31/19 12/12/19 Rx mcg-vilanterol 25 mcg/dose inhalation powder nebulizers #1 ea 07/31/19 12/09/19 Rx tamsulosin 0.4 mg capsule 0.4 mg PO DAILY #90 cap 10/13/19 12/12/19 Rx sildenafil (pulm.hypertension) 20 20 - 100 mg PO ONCE PRN #90 tab 11/09/19 12/12/19 Rx mg tablet aspirin 81 mg tablet,delayed 81 mg PO DAILY 12/09/19 12/12/19 History release Past Med/Surg History Medical History Arthritis Bronchitis CAD (coronary artery disease) (Chronic) COPD (chronic obstructive pulmonary disease) (Chronic) COPD (chronic obstructive pulmonary disease) Diabetes mellitus (Chronic) Elevated PSA Sleep apnea (Chronic) 09/14/2014- Urinary incontinence Surgical History H/O knee surgery History of cardiac catheterization 05/01/2010-PCI of OM 2 with CAROLINE Family History Mother Heart disease Hypertension Social History Preferred Language: Occitan Communication Ability: Effective Visual Impairment: No Limitations Hearing Ability: Use of Hearing Aid Pearl Restorer Required: No Beliefs That Will Affect Care: None marital status: / Current Living Situation: Alone Current Living Situation Comment: with significant other. Son yemi lives within a few minutes current occupational status: retired Other Information That Helps Us Care for You: No Feels Safe at Home: Yes Safety Concerns: Feels Safe At This Time Smoking Status: Former smoker Tobacco Type: cigarettes and smokeless tobacco ; Age Started Using Tobacco: 15 ; Age Quit Using Tobacco: 30 ; packs per day: 2 ; Smoking End Date: 44 years ago ; Number of Years Since Quit: 44 ; Second Hand Exposure: Yes ; Hx Alcohol Use: Yes Alcohol type: beer Hx Substance Use: No Diet Comment: regular caffeine: Yes during the past year weight has: decreased > 10 lbs Dental Care, Regularly: Yes Physical Activity Frequency: Does not Exercise Seatbelt Use: always Sunscreen Use: No Review of Systems Review of Systems: All systems reviewed & are unremarkable except as noted in HPI & below Physical Exam Constitutional: well developed and + obese; no acute distress Eyes: PERRL, conjunctivae normal, anicteric sclerae EOM intact bilaterally (no diplopia); no nystagmus ENMT: external ear and nose normal, oropharynx normal Neck: trachea midline, no thyromegaly Respiratory: normal respiratory effort; no respiratory distress, no labored breathing, no retractions and does not use accessory muscles Auscultation: + diminished lung sounds (bibasal) and + rhonchi (upper airway sounds in anterior chest); no crackles, no rales and no wheezes Cardiovascular: Rate/Rhythm: regular rate and regular rhythm Heart Sounds: no murmur Vessels: no JVD Extremities: normal capillary refill and + pedal edema (1+ to knees); no calf tenderness Gastrointestinal (Abdomen): normal bowel sounds, soft, nontender, no hepatosplenomegaly Musculoskeletal: large right and moderate left knee effusions without ecchymosis, warmth or erythema from prior falls small ecchymotic nodule tender to touch at base of right 1st metacarpal Neurologic: moves all extremities, + focal motor deficit (see below) and awake; not confused Speech / Cognition: + abnormal speech (mild dysarthria); no expressive aphasia and no receptive aphasia Motor/Sensory: no tremor, no pronator drift and no sensory deficit Cranial Nerves: PERRL, EOM intact bilaterally, able to rotate head bilaterally, able to elevate shoulders bilaterally and no nystagmus; + abnormal facial strength (mild left droop, noticable mostly at his lip) mildly reduced community relations officer strength on left 4+, otherwise unremarkable b/l upper limb exam Left hip flex 4, knee ext 3, flex 3, ankle dorsiflex 4, platarflex 4 Psychiatric: A+Ox3, euthymic affect Genitourinary: no CVA tenderness Lymphatic: no cervical or axillary lymphadenopathy Results & Data Vital Signs (Past 12 Hours) Vital Signs Temp Pulse Pulse Resp BP BP Pulse Ox 12/12/19 18:28 78 24 178/85 H 97 12/12/19 18:01 84 19 150/112 H 97 12/12/19 18:00 80 23 98 12/12/19 17:50 97 12/12/19 17:49 86 18 153/105 H 97 12/12/19 17:45 92 H 28 H 95 12/12/19 17:43 88 24 153/105 H 95 12/12/19 17:31 96 12/12/19 17:30 83 20 97 12/12/19 17:21 97 H 93 H 22 168/82 H 96 12/12/19 17:17 91 H 25 H 168/82 H 96 12/12/19 17:00 36.7 C 88 18 176/69 H 96 Code Status & VTE Plan Code Status Nothing in the event of a cardiac arrest but ok for everything outside of this VTE Prophylaxis Plan VTE Prophylaxis will be ordered: Yes Critical Care Time Prolonged Care Time Prolonged Care Time: Yes Total Prolonged Care Time: 55 PG Care Time/CCT Total # of Minutes Spent Total Time Spent: 115 Total Time Spent with Patient: Total time spent is greater than 50% in coordination of care (as documented) at patient's floor/unit and/or counseling patient: Prolonged Care Time Prolonged Care Time: Yes Total Prolonged Care Time: 55 Coding Level of Care Code 31503 Initial Inpt Care Lvl 3 Diagnoses Acute ischemic stroke I63.9 Paroxysmal atrial fibrillation I48.0 Pulmonary embolism I26.93 Pulmonary embolism type: single subsegmental (without acute cor pulmonale) Urinary incontinence R32 Urinary Incontinence type: unspecified incontinence Sleep apnea G47.33 Sleep apnea type: obstructive Diabetes mellitus E11.9 Diabetes mellitus complication status: without complication Diabetes mellitus prison insulin use: without salvage determiner use Diabetes mellitus type: type 2 CAD (coronary artery disease) I25.10 Associated angina: without angina Coronary Disease-Associated Artery/Lesion type: [place] artery [place] vs. transplanted heart: [place] heart COPD (chronic obstructive pulmonary disease) J44.9 BPH (benign prostatic hyperplasia) N40.0 Lower urinary tract symptom presence: symptoms absent Fatigue R53.83 Fatigue type: unspecified Ambulatory dysfunction R26.2 Oropharyngeal dysphagia R13.12 DVT prophylaxis Z29.9 Discharge planning issues Z02.9 Additional Codes Prolonged Care Time - Prolonged Care Time: Yes ([id number]) (1) BPH (benign prostatic hyperplasia) Lower urinary tract symptom presence: symptoms absent Qualified Code(s): N40.0 - Benign prostatic hyperplasia without lower urinary tract symptoms (2) Sleep apnea Sleep apnea type: obstructive Qualified Code(s): G47.33 - Obstructive sleep apnea (adult) (pediatric) (3) Fatigue Fatigue type: unspecified Qualified Code(s): R53.83 - Other fatigue (4) Urinary incontinence Urinary Incontinence type: unspecified incontinence Qualified Code(s): R32 - Unspecified urinary incontinence (5) Diabetes mellitus Diabetes mellitus complication status: without complication Diabetes mellitus prison insulin use: without salvage determiner use Diabetes mellitus type: type 2 Qualified Code(s): E11.9 - Type 2 diabetes mellitus without complications (6) CAD (coronary artery disease) Associated angina: without angina Coronary Disease-Associated Artery/Lesion type: [place] artery [place] vs. transplanted heart: [place] heart Qualified Code(s): I25.10 - Atherosclerotic heart disease of [place] coronary artery without angina pectoris (7) Pulmonary embolism Pulmonary embolism type: single subsegmental (without acute cor pulmonale) Qualified Code(s): I26.93 - Single subsegmental pulmonary embolism without acute cor pulmonale
--- NOTE | 2019-12-12 19:55 | XRay Report ---
XR orbits for MRI CLINICAL HISTORY: 74 years-old Male presenting with for MRI. TECHNIQUE: 3 views of the orbits were obtained. COMPARISON: CT head from 12/12/2019. FINDINGS: No radiopaque intraorbital foreign body. Bony orbits grossly intact. Paranasal sinuses grossly clear. Visualized portion of the calvarium intact. IMPRESSION: No intraorbital metallic foreign body to preclude MRI exam. ACT 112: Negative or not required by law. Electronically signed by: Sanya Morel M.D. 12/12/2019 7:54 PM
[2019-12-12] MEDS ORDERED: GADOBUTROL 65ML VIAL IV PRN (20:56)
[2019-12-12] MEDS ORDERED: PHARMACIST DISCHARGE MED REC CONSULT PRN (21:23)
--- NOTE | 2019-12-12 21:26 | Magnetic Resonance Report ---
MR brain wo/w con CLINICAL HISTORY: 74 years-old Male presenting with difficulty walking, left facial droop, slurred sp eech, multiple falls. TECHNIQUE: Multisequence, multiplanar MR imaging of the brain was performed before and after the admi nistration of intravenous contrast. IV contrast: 10 mL of Gadavist. COMPARISON: Noncontrast CT head performed earlier the same day. FINDINGS: Localizer images: Unremarkable. Bone marrow signal intensity within the calvarium within normal limits. Normal midline sagittal structures. Proportional ventricular and sulcal prominence, likely age-relate d parenchymal volume loss. No midline shift. Acute infarct in the right caudate body extending into t he centrum semiovale white matter. This measures nearly 2 cm in diameter. Regional mass effect is trice dent. Severe, confluent periventricular and subcortical white matter T2/FLAIR hyperintensity, likely chronic small vessel ischemic change. Numerous old lacunar infarcts in the bilateral basal ganglia an d left thalamus. No abnormal parenchymal enhancement. No extra-axial fluid collection. T2 skull base flow voids preserved. Mucosal thickening in paranasal sinuses. Bilateral [place] lenses are absent. IMPRESSION: 1. Acute infarct in the right caudate body extending into the centrum semiovale white matter. 2. Numerous old bilateral basal ganglia and left thalamic lacunar infarcts. 3. Severe chronic small vessel ischemic change. The report will be called/faxed according to standard departmental protocol for a critical finding. ACT 112: Negative or not required by law. Electronically signed by: Sanya Morel M.D. 12/12/2019 9:25 PM
[2019-12-12] MEDS: LACTATED RINGER'S 1,000 ML IV SCH (22:09)
[2019-12-12] MEDS ORDERED: FLUTICASONE/VILANTEROL 100/25MCG 14 PUFFS/INHALER INH ONE (23:02)
[2019-12-12] MEDS ORDERED: TAMSULOSIN HCL 0.4 MG CAP PO ONE (23:03)
[2019-12-12] MEDS ORDERED: ALUMINUM/MAGNESIUM SUSP 30 ML UDC PO PRN (23:06)
[2019-12-12] MEDS ORDERED: POLYETHYLENE (MIRALAX) 17 GM PACK PO PRN (23:06)
[2019-12-12] MEDS ORDERED: FAMOTIDINE 20 MG in SYRINGE 3 ML IV STA (23:11)
[2019-12-12] MEDS: POTASSIUM CHLORIDE / WTR 10 MEQ/100 ML PLCT IV SCH (23:34)
[2019-12-13] MEDS: POTASSIUM CHLORIDE / WTR 10 MEQ/100 ML PLCT IV SCH (00:45)
[2019-12-13 04:39] LABS: Basophils # (auto) 0.02 K/uL (0-0.2); Basophils % (auto) 0.2 %; Eosinophils # (auto) 0.53 K/uL (0-0.5); Eosinophils % (auto) 4.7 %; Hematocrit (blood only) 41.5 % (42-52); Hemoglobin 14.1 g/dL (14.0-18.0); Immature Granulocytes # (auto) 0.03 K/uL (0.00-0.02); Immature Granulocytes % (auto) 0.3 %; Lymphocytes # (auto) 1.87 K/uL (1.2-3.4); Lymphocytes % (auto) 16.5 %; Mean Corpuscular Hemoglobin 28.4 pg (25-34); Mean Corpuscular Volume 83.7 fL (80-100); Mean Platelet Volume 9.4 fL (7.4-10.4); Monocytes # (auto) 1.24 K/uL (0.11-0.59); Monocytes % (auto) 10.9 %; Neutrophils # (auto) 7.66 K/uL (1.4-6.5); Neutrophils % (auto) 67.4 %; Platelet Count 239 K/uL (130-400); RDW Coefficient of Variation 14.2 % (11.5-14.5); RDW Standard Deviation 43.1 fL (36.4-46.3); Red Blood Count 4.96 M/uL (4.7-6.1); White Blood Count 11.35 K/uL (4.8-10.8)
[2019-12-13 04:55] LABS: BUN Creatinine Ratio 19.9 (10-20); Blood Urea Nitrogen 17 mg/dl (7-18); Calcium 8.6 mg/dl (8.5-10.1); Carbon Dioxide 24 mmol/L (21-32); Chloride 110 mmol/L (98-107); Creatinine Clr Calc Pharmacy 92.8 ml/min; Est GFR (Non-African American) 86.3; Glucose 117 mg/dl (70-99); Potassium 3.7 mmol/L (3.5-5.1); Sodium 141 mmol/L (136-145)
--- NOTE | 2019-12-13 05:00 | Communication Note ---
Date of Service: December 13, 2019 Stroke alert called on patient for increased dysarthria. Patient taken emergently to CT for Noncon and then transported to ICU for tele-stroke consult. Case was discussed with on-call neurology. Patient was noted to have been admitted for acute dysarthria and right-sided drift with a stroke scale of 4 at midnight prior to his worsening. He was not a TPA candidate due to time (symptoms began approximately 2 days before admission). On arrival to unit patient was observed to have abdominal breathing. He was hypertensive, and tachypneic on arrival to the unit. His oxygen saturations were approximately 93% to 96% on 2 L however room air, he was previously on BiPAP overnight. He has a history of PE previously on Xarelto anticoagulation which was held on November 27 due to hematuria. He was reportedly seen at [facility] for follow-up of his hematuria with blood work and a CT scan which did not show any abnormalities, and the hematuria was felt to be due to his anticoagulation. Stat CT PE protocol was placed for concern of acute PE. By completion of tele-stroke consult patient's acute neurologic symptoms had mostly improved. Neurology recommended blood pressure goal systolic 150-180 and anticoagulation, heparin drip. Recommend MRI for follow-up due to extensive white matter changes, however as this will not change acute management this does not need to be done urgently. Patient given 1 dose of labetalol 10 mg for BP in the 190s, and started on heparin drip no bolus. Will require close monitoring for bleeding.
[2019-12-13 05:06] LABS: Chol HDL Ratio 3; Cholesterol 116 mg/dl (0-200); HDL Cholesterol 46 mg/dl; LDL Cholesterol Calculated 56 mg/dl; Triglycerides 69 mg/dl (0-150); Troponin I < 0.015 ng/ml (0-0.045); VLDL Cholesterol 14 mg/dl
[2019-12-13] MEDS ORDERED: LABETALOL HCL IV 5 MG/ML 20ML IV STA (05:20)
[2019-12-13] MEDS ORDERED: OPTIRAY 320 125ml IV PRN (05:28)
[2019-12-13] MEDS: HEPARIN SODIUM/DEXTROSE 25,000 UNITS/500 ML BAG IV SCH (06:06)
--- NOTE | 2019-12-13 06:54 | CT Scan Report ---
CT ANGIOGRAPHY OF THE CHEST, PULMONARY EMBOLUS PROTOCOL CLINICAL HISTORY: Shortness of breath. COMPARISON STUDY: Chest CT July 30, 2014. Chest radiograph December 13, 2019. TECHNIQUE: Following IV administration of 118 mL of Optiray-320, helical axial images of the chest we re obtained utilizing the pulmonary embolus protocol. Maximal intensity projections and sagittal and coronal reformats were viewed on an independent 3D workstation. IV contrast was administered withou t complication. Automated exposure control was utilized for the study. A dose lowering technique wa s utilized adhering to the principles of ALARA. CT DOSE: 831.61 mGy.cm FINDINGS: No pulmonary emboli are identified although segmental and subsegmental pulmonary arteries are suboptimally assessed given respiratory motion artifact. There is no thoracic aortic dissection. Size of the heart is normal. There is no pericardial effusion. There is no pneumothorax or pleural ef fusion. Linear left basilar opacity favors scarring or atelectasis. There is no consolidation to sugg est pneumonia. Bony thorax is unremarkable. Gallbladder is mildly distended. IMPRESSION: 1. No pulmonary emboli identified although segmental and subsegmental pulmonary arteries suboptimally assessed given respiratory motion. 2. No acute findings within the chest. ACT 112: Negative or not required by law. Electronically signed by: Del Soler M.D. 12/13/2019 6:52 AM
--- NOTE | 2019-12-13 07:04 | XRay Report ---
XR chest 1V portable CLINICAL HISTORY: Labored Breathing COMPARISON STUDY: Chest radiograph December 12, 2019. FINDINGS: Lung volumes are normal. Lungs are clear. There is no pneumothorax or pleural effusion. Car diac size is normal. Mediastinal contours are normal. There is no evidence for pulmonary edema. There is mild elevation of the right hemidiaphragm. IMPRESSION: No acute cardiopulmonary findings. ACT 112: Negative or not required by law. Electronically signed by: Del Soler M.D. 12/13/2019 7:03 AM
--- NOTE | 2019-12-13 07:05 | XRay Report ---
KUB CLINICAL HISTORY: Distended Abdomen COMPARISON STUDY: CT of the abdomen and pelvis August 06, 2019. FINDINGS: The bowel gas pattern is normal. There is mild elevation of the right hemidiaphragm. No katarina al calculi are identified. IMPRESSION: No evidence for a bowel obstruction. ACT 112: Negative or not required by law. Electronically signed by: Del Soler M.D. 12/13/2019 7:03 AM
--- NOTE | 2019-12-13 07:10 | CT Scan Report ---
CT OF THE HEAD WITHOUT CONTRAST CLINICAL HISTORY: neuro change, stroke COMPARISON STUDY: Head CT, CTA of the head and MRI of the brain December 12, 2019. CT DOSE: 844.62 mGy.cm TECHNIQUE: Helical axial images of the head were obtained without IV contrast. Automated exposure con trol was utilized for the study. A dose lowering technique was utilized adhering to the principles o f ALARA. FINDINGS: No acute intracranial hemorrhage, midline shift or mass effect is present. A 1.8 cm acute i nfarct within the right centrum semiovale ovale and right caudate body is similar to prior head CT an d MRI. Extensive white matter hypodensity suggests small vessel disease. There are old infarcts withi n the bilateral basal ganglia. The basilar cisterns are patent. There are no extra axial collections. The appearance of the brain is unchanged. There are no significant calvarial abnormalities. Postoper ative findings within the sinuses are noted. There is moderate polypoid mucosal thickening within the left maxillary sinus. IMPRESSION: 1. No acute intracranial hemorrhage. 2. No change in a 1.8 cm acute infarct within the right caudate body and centrum semiovale ovale sinc e prior MRI and head CT. ACT 112: Negative or not required by law. Electronically signed by: Del Soler M.D. 12/13/2019 7:09 AM
[2019-12-13 07:12] LABS: Partial Thromboplastin Time 55.2 Seconds (21.0-31.0)
[2019-12-13] MEDS: Heparin IV Standard *NO* Bolus IV SCH (07:48)
[2019-12-13] MEDS: FLUTICASONE/VILANTEROL 100/25MCG 14 PUFFS/INHALER INH SCH (07:54)
[2019-12-13] MEDS: LACTATED RINGER'S 1,000 ML IV SCH ×2 (07:54→17:22)
--- NOTE | 2019-12-13 07:57 | Electrocardiogram Report ---
Test Reason : Blood Pressure : / mmHG Vent. Rate : 087 BPM Atrial Rate : 087 BPM P-R Int : 194 ms QRS Dur : 154 ms QT Int : 380 ms P-R-T Axes : 063 095 024 degrees QTc Int : 457 ms Poor data quality, interpretation may be adversely affected Normal sinus rhythm Right bundle branch block Nonspecific T wave abnormality Anterior leads Abnormal ECG When compared with ECG of 06-AUG-2019 19:24, Nonspecific T wave abnormality now evident in Anterior leads Confirmed by Harvinder El ([id number]) on 12/13/2019 7:57:04 AM Referred By: REFERRED SELF Confirmed By:Harvinder El
--- NOTE | 2019-12-13 08:04 | Electrocardiogram Report ---
Test Reason : Blood Pressure : / mmHG Vent. Rate : 081 BPM Atrial Rate : 081 BPM P-R Int : 190 ms QRS Dur : 156 ms QT Int : 400 ms P-R-T Axes : 051 095 044 degrees QTc Int : 464 ms Sinus rhythm with Premature atrial complexes Right bundle branch block Abnormal ECG When compared with ECG of 12-DEC-2019 17:24, Premature atrial complexes are now Present Nonspecific T wave abnormality Anterior leads no longer present Confirmed by Harvinder El ([id number]) on 12/13/2019 8:04:07 AM Referred By: REFERRED SELF Confirmed By:Harvinder El
--- NOTE | 2019-12-13 08:14 | Electrocardiogram Report ---
Test Reason : Blood Pressure : / mmHG Vent. Rate : 117 BPM Atrial Rate : 166 BPM P-R Int : 000 ms QRS Dur : 140 ms QT Int : 356 ms P-R-T Axes : 000 104 015 degrees QTc Int : 496 ms Poor data quality, interpretation may be adversely affected Atrial fibrillation with rapid ventricular response with premature ventricular or aberrantly conducte d complexes Right bundle branch block Nonspecific T wave abnormality Inferior leads Abnormal ECG When compared with ECG of 12-DEC-2019 23:05, HR has increased by 36 bpm Atrial fibrillation has replaced Sinus rhythm T wave inversion now evident in Inferior leads Confirmed by Harvinder El ([id number]) on 12/13/2019 8:13:55 AM Referred By: REFERRED SELF Confirmed By:Harvinder El
--- NOTE | 2019-12-13 08:17 | Electrocardiogram Report ---
Test Reason : Blood Pressure : / mmHG Vent. Rate : 113 BPM Atrial Rate : 113 BPM P-R Int : 216 ms QRS Dur : 146 ms QT Int : 366 ms P-R-T Axes : 000 105 022 degrees QTc Int : 502 ms Poor data quality, interpretation may be adversely affected Atrial fibrillation vs. Sinus tachycardia with 1st degree A-V block with Premature atrial complexes Right bundle branch block Abnormal ECG When compared with ECG of 13-DEC-2019 04:29, Probably no significant change (prior tracing also uncertain rhythm) Confirmed by Harvinder El ([id number]) on 12/13/2019 8:16:59 AM Referred By: REFERRED SELF Confirmed By:Harvinder El
[2019-12-13] MEDS ORDERED: PERFLUTREN LIPID MICROSPHERE (DEFINITY) IV ONE (08:25)
--- NOTE | 2019-12-13 09:34 | Neurology Consultation ---
Date of Consultation December 13, 2019 Assessment & Plan (1) Acute ischemic stroke: Acute ischemic stroke within the right caudate body, extending to the centrum semiovale. Patient has a persistent left facial droop but does not appear to have an obvious associated left hemiparesis this morning. He does not appear to have obvious left hemineglect or other signs localizing to this acute infarct, at least at this time. The exact timing of his stroke onset is a bit difficult to determine based on his presenting history. However, the onset may have coincided with development of dysarthria 1 day prior to his presentation. The left facial droop noted several hours prior to presentation would certainly be more specific based on stroke localization. The reported gait dysfunction and falls occurring 3 days prior to his initial assessment is unfortunately not very localizing and could be related to his chronic extensive cerebrovascular disease/multi-infarct state. His MRI does reveal rather severe chronic cerebrovascular disease as well as multifocal chronic lacunar infarcts, notably within the bilateral basal ganglia and left thalamus as well as an element of probable wallerian degeneration within the left cerebral peduncle (noted on coronal FLAIR images) related to chronic ischemic disease which may explain his right leg weakness, although the large right knee effusion as seen on x-ray would be a confounding factor. A cardioembolic stroke etiology is of primary concern in this patient given evidence of new onset atrial fibrillation. He does have other stroke risk factors, however, including diabetes mellitus, coronary artery disease, recent pulmonary embolism, former smoker. At this point, I agree with anticoagulation with heparin. Agree with clopidogrel 75 mg/day. Would also recommend a repeat brain MRI as suggested by the repeat tele-stroke consultation overnight. If there is no evidence of hemorrhage or new large territory infarct would consider initiation of an oral anticoagulant for secondary stroke risk reduction in light of new diagnosis of atrial fibrillation. Continue to monitor blood pressure, systolic blood pressure range from 150 to 180 mmHg as suggested by overnight repeat tele-stroke specialist reasonable. PT/OT/speech therapy consultations. History of Present Illness Reason for Consultation: Stroke Requesting Physician: Luis Queen MD Attending Physician: Huma Barnett DO History of Present Illness The patient is a 74-year-old male who presented to the emergency department yesterday with a chief complaint of weakness and falls which began 3 days prior, followed by the development of slurred speech 1 day prior, with later development of left-sided facial droop, dysarthria, and dysphagia about 3 hours prior to his arrival. He was probably last known well about 4 days prior to his initial assessment. The above symptoms have been persistent including the left facial droop and dysarthria. His past medical history is notable for a recent diagnosis of pulmonary embolism and pneumonia. He had been prescribed Xarelto although this medication was discontinued about 2 weeks ago due to hematuria. He continues to complain of some right knee pain as a consequence of a fall that occurred a few days ago with some associated weakness of the right lower limb. An initial CT of the head suggested an age indeterminate infarct within the right caudate body measuring 15 mm in size as well as multiple old bilateral lacunar infarcts within the basal ganglia. CT angiography of the head and neck were unremarkable. Imaging described in further detail below. The patient did have a tele-stroke consultation although TPA was not administered as he was outside of the therapeutic window. His blood pressure has been modestly elevated. An electrocardiogram at the time of presentation revealed atrial fibrillation with rapid ventricular response. The patient was admitted to the medical floor/telemetry for further evaluation and management. Acute anticoagulation was initially deferred given concern for risk of precipitating hemorrhagic conversion. A follow-up brain MRI confirmed the presence of an acute infarct within the right caudate body extending into the centrum semiovale white matter as well as numerous old lacunar infarcts. Imaging described below in further detail. Overnight, the patient became more acutely confused, short of breath, and dysarthric. Another CT of the head was completed which revealed no significant change in the previously identified 1.8 cm acute infarct within the right caudate body and centrum semiovale. No hemorrhagic conversion. A CT angiogram of the chest was also completed which was negative for pulmonary embolism although the test was suboptimal due to respiratory motion. Medicine housestaff were notified overnight and it looks like another tele-stroke consultation was obtained at bedside with additional recommendations given pertaining to starting a heparin drip as well as obtaining a follow-up nonemergent brain MRI. Additional guidance was given regarding blood pressure control as well. This morning, the patient continues to complain of a feeling of generalized weakness. He complains of difficulty lifting the right leg but a ttributes this to his persistent knee pain related to a recent fall. The knee is not obviously swollen or discolored. He continues to exhibit a moderate left facial droop but is not really aware of this issue. His speech remains modestly dysarthric and soft as well. He currently denies headache. See below for further details. Allergies Allergy/AdvReac Type Severity Reaction Status Date / Time fluticasone Allergy Mild Hives Verified 12/12/19 18:07 salmeterol Allergy Mild Hives Verified 12/12/19 18:07 Home Medications Home Medications Medication Instructions Recorded Confirmed Type albuterol sulfate 90 mcg/actuation 2 puffs INHALATION Q4H #18 gm 07/31/19 12/12/19 Rx aerosol inhaler fluticasone furoate 100 1 inh INH DAILY #1 inhaler 07/31/19 12/12/19 Rx mcg-vilanterol 25 mcg/dose inhalation powder nebulizers #1 ea 07/31/19 12/09/19 Rx tamsulosin 0.4 mg capsule 0.4 mg PO DAILY #90 cap 10/13/19 12/12/19 Rx sildenafil (pulm.hypertension) 20 20 - 100 mg PO ONCE PRN #90 tab 11/09/19 12/12/19 Rx mg tablet aspirin 81 mg tablet,delayed 81 mg PO DAILY 12/09/19 12/12/19 History release Patient History Medical History Arthritis Bronchitis CAD (coronary artery disease) (Chronic) COPD (chronic obstructive pulmonary disease) (Chronic) COPD (chronic obstructive pulmonary disease) Diabetes mellitus (Chronic) Elevated PSA Sleep apnea (Chronic) 09/14/2014- Urinary incontinence Surgical History H/O knee surgery History of cardiac catheterization 05/01/2010-PCI of OM 2 with CAROLINE Family History Mother Heart disease Hypertension Social History Preferred Language: Mosoth[place] Communication Ability: Effective Visual Impairment: No Limitations Hearing Ability: Use of Hearing Aid [facility] Manager Required: No Beliefs That Will Affect Care: None marital status: / Current Living Situation: Alone Current Living Situation Comment: with significant other. Son yemi lives within a few minutes current occupational status: retired Other Information That Helps Us Care for You: No Feels Safe at Home: Yes Safety Concerns: Feels Safe At This Time Smoking Status: Former smoker Tobacco Type: cigarettes and smokeless tobacco ; Age Started Using Tobacco: 15 ; Age Quit Using Tobacco: 30 ; packs per day: 2 ; Smoking End Date: 44 years ago ; Number of Years Since Quit: 44 ; Second Hand Exposure: Yes ; Hx Alcohol Use: Yes Alcohol type: beer Hx Substance Use: No Diet Comment: regular caffeine: Yes during the past year weight has: decreased > 10 lbs Dental Care, Regularly: Yes Physical Activity Frequency: Does not Exercise Seatbelt Use: always Sunscreen Use: No Review of Systems Constitutional: no fever and no chills Eyes: no blind spots and no diplopia Ear, Nose, Mouth, Throat: no hearing loss Respiratory: + dyspnea Cardiovascular: no chest pain and no palpitations Gastrointestinal: no nausea and no vomiting Genitourinary: + hematuria (Previous hematuria noted in HPI); no urinary incontinence Musculoskeletal: no neck pain and no myalgia Integumentary: no rash and no lesions Neurologic: as per Subjective / HPI, + gait abnormality, + unsteadiness, + localized weakness and + confusion; no syncope and no headache(s) Psychiatric: no depression and no anxiety Hematologic / Lymphatic: no easy bleeding and no easy bruising Physical Exam Physical Exam: The patient is a well-developed, well-nourished elderly male. He is awake, although mildly lethargic, oriented to person and place, missed the exact day of the week. Attention mildly impaired as is concentration. Patient speech is somewhat soft and mildly dysarthric sounding. He is able to name objects and repeat phrases, however. Patient exhibits an age-appropriate fund of knowledge and normal comprehension of vocabulary. Visual serrano full to confrontation. Visual acuity normal. Pupils equal round reactive to light and accommodation. Eye movements normal. There is no nystagmus, ptosis, or ophthalmoplegia. Facial sensation intact. There is a left lower facial droop noted. Hearing intact. Palate elevates to midline. Shoulder shrug intact. Tongue protrudes to midline. Sensation intact to all modalities in all 4 limbs. Deep tendon reflexes are diffusely diminished. Plantar responses withdrawal. There is no pronator drift with outstretched arms. There is no dysmetria with [id number] bilaterally. No dysmetria with [id number]-wd-[id number] on the left. Patient has difficulty with the right leg, however, due to reduced strength and is unable to perform ednc-cq-[id number] with this limb. Ophthalmoscopic examination reveals normal-appearing optic disks and posterior segments, no papilledema or hemorrhages. Carotid pulses normal bilaterally, no bruits to auscultation. Gait and station cannot be tested due to safety concerns/weakness. Evaluation of muscle strength reveals normal strength for both upper limbs proximally and distally. Normal muscle strength for the left lower limb as well. There is reduced rent for the right lower limb, 4 out of 5. Muscle tone normal throughout. No atrophy. No abnormal movements observed. Results & Data Vital Signs (Past 12 Hours) Vital Signs Temp Pulse Pulse Pulse Resp BP Pulse Ox 12/13/19 08:03 36.6 C 105 H 22 151/89 H 94 12/13/19 07:46 102 H 12/13/19 05:00 116 H 30 H 193/115 H 95 12/13/19 04:45 110 H 30 H 172/109 H 96 12/13/19 04:26 107 H 30 H 190/102 H 95 12/13/19 04:00 36.8 C 113 H 16 191/106 H 93 12/13/19 03:10 74 22 94 12/13/19 00:31 91 H 12/12/19 23:56 36.9 C 79 16 156/78 H 94 12/12/19 22:27 76 20 96 12/12/19 21:20 36.7 C 88 20 169/83 H 94 Laboratory Results WBC 11.35, hemoglobin 14.1, hematocrit 41.5, platelet count 239, sodium 141, potassium 3.7, BUN 17, creatinine 0.84, glucose 117, calcium 8.6, troponin less than 0.015, triglycerides 69, cholesterol 116, LDL 56, VLDL 14, HDL 46, TSH 1.[address] of the head suggested an age-indeterminate lacunar infarct within the right caudate body, no hemorrhage. There is extensive chronic small vessel ischemic disease as well as multiple bilateral lacunar infarcts. I reviewed the images as well as the radiologist interpretation of this test. CT angiography of the head and neck were unremarkable, without evidence of aneurysm, focal vessel occlusion, stenosis, or dissection. MRI of the brain reveals an acute infarct measuring about 2 cm in size, within the right caudate body, extending into the centrum semiovale white matter as well as numerous chronic old bilateral lacunar infarcts within the basal ganglia and left thalamus. There is extensive chronic small vessel ischemic disease as well. There is increased T2/flair signal within the left cerebral peduncle likely consistent with wallerian degeneration. I reviewed the images as well as the radiologist's interpretation of this test. A follow-up CT of the head completed overnight continue to reveal a 1.8 cm acute infarct within the right caudate body and centrum semiovale, no change compared with prior imaging, no evidence of hemorrhage or other acute process. I reviewed the images as well as the radiologist interpretation of this test. An electrocardiogram completed at the time of presentation revealed atrial fibrillation with rapid ventricular response. An echocardiogram completed August 07, 2019 revealed normal left ventricular size and systolic function, ejection fraction 55%, no regional wall motion abnormalities, no significant left ventricular hypertrophy. No evidence of atrial septal defect. PFO cannot be completely excluded. Coding Level of Care Code 94259 Initial In Care Lvl 3 Diagnoses Acute ischemic stroke I63.9
[2019-12-13] MEDS: CLOPIDOGREL BISULFATE 75 MG TAB PO SCH (10:22)
[2019-12-13] MEDS: POLYETHYLENE (MIRALAX) 17 GM PACK PO SCH ×2 (10:24→19:43)
[2019-12-13] MEDS: ALBUT/IPRATROP 3MG/0.5MG NEB 3 ML VIAL NEB PRN ×2 (10:29→22:14)
--- NOTE | 2019-12-13 11:27 | XCELERA ---
[id number] \\[id number]
[2019-12-13] MEDS ORDERED: KETOROLAC TROMETHAMINE 15 MG/ML VIAL IV ONE (11:40)
--- NOTE | 2019-12-13 12:58 | Magnetic Resonance Report ---
MRI OF THE BRAIN WITHOUT CONTRAST CLINICAL HISTORY: Worsening stroke symptoms, atrial fibrillation. COMPARISON STUDY: MRI of the brain December 2019. Head CT December 13, 2019. TECHNIQUE: Utilizing a 1.5 Rose magnet and dedicated coil, multiplanar, multiecho imaging of the bra in was performed without IV contrast. FINDINGS: There has been slight increase in size of the acute infarct within the right caudate body a nd centrum semiovale ovale since prior MRI of December 12, 2019. The acute infarct measures 2.3 cm. It previously measured 2.1 cm. No additional foci of acute infarction are noted. There are old infarcts within the bilateral basal ganglia. The basilar cisterns are patent. There are no extra axial collec tions. No acute intracranial hemorrhage is present. Extensive white matter T2 hyperintense foci refle ct small vessel disease. Left maxillary sinus polypoid mucosal thickening is noted. Ventricular syste m is stable. Calvarial signal is normal. IMPRESSION: Slight increase in extent of the 2.3 cm acute infarct within the right caudate body and centrum semiovale since MRI of December 12, 2019. No mass effect. No hemorrhage. ACT 112: Negative or not required by law. Electronically signed by: Del Soler M.D. 12/13/2019 12:57 PM
[2019-12-13 13:09] LABS: Partial Thromboplastin Ratio 4.7
[2019-12-13 13:23] LABS: Partial Thromboplastin Time 127.1 Seconds (21.0-31.0)
--- NOTE | 2019-12-13 13:30 | Hospitalist Progress Note ---
Date of Service December 13, 2019 Assessment & Plan (1) Acute ischemic stroke: CT head/MRI: R caudate, likely acute Repeat stroke alert on 12/13 after admission, CT head unchanged Suspect cardioembolic. (see below for A. fib). Stoke without tPA order set - neuro checks Will allow permissive hypertension overnight however likely he is almost 24 hours out at this time therefore a lower blood pressure is less concerning. NIH stroke score 6 when seen on admission (already improving as per family members). ECHO pending Main symptoms of mild left lower extremity weakness and left facial droop and dysarthria Consult neurology , plan for plavix and heparin Unable to give plavix due to current swallowing issues ST: pt is not able to swallow any consistency at this time PT/OT pending LDL 56, HDL 46 A1c pending Monitor for s/sx of bleeding given issues with hematuria when on xarelto recentl y (2) Paroxysmal atrial fibrillation: New onset. Self converted in ER. He was rate controlled without medication. No alcohol history. TSH WNL ECHO pending Trop neg x2 CBC, PRP WNL No new afib episodes since self conversion in ED (3) Pulmonary embolism: Pt dx with PE and started on xarelto, however developed hematuria and this was stopped on 11/27 No tachycardia and on room air, therefore do not feel this is emergent to treat in light of increased hemorrhagic transformation risk. CTA neg for PE (4) Urinary incontinence: Prescribed mybetriq PRN (see last urology note), therefore presumably has overactive bladder. Will monitor for now. (5) Sleep apnea: Trial BiPAP at night although patient has been intolerant to CPAP at home. (6) Diabetes mellitus: Unclear diagnosis disputed by family ?steroid induced previously. HbA1C 6.4 in August. BS ACHS A1c pending (7) CAD (coronary artery disease): 2009 - PCI to OM2 with CAROLINE, patient notes being stable for years. No chest pain or shortness of breath on exertion. (8) COPD (chronic obstructive pulmonary disease): No acute exacerbation Breo Ellipta 1 puff BID Duonebs Q4H PRN (9) BPH (benign prostatic hyperplasia): Continue tamsulosin (10) Fatigue: Suspect multifactorial with recent falls and knee pain. No infective etiologies found and patient recently had CT chest, abdomen and pelvis. Possible PE getting larger however he is not tachycardic or hypoxic. (11) Ambulatory dysfunction: Suspect initially was due to knee pain after his first fall. However possible he had a stroke on Saturday in addition. Either way will need PT/OT. If not doing well with rehab consider ortho consult to drain off some of the fluid. History concerning for spinal stenosis and he has some history of this, however no urinary or bowel acute incontinence and his power in his legs is actually good - mostly proximal muscle weakness, therefore imaging deferred at this time. (12) Oropharyngeal dysphagia: Speech need to see prior to any diet. LR 125ml/hr running for hydration prior to this. Clear risks of aspiration from history. Likely to need outpatient services in addition. (13) DVT prophylaxis: SCDs, will defer anticoagulation as above. (14) Discharge planning issues: PT/OT/Speech (15) Knee pain: Likely related to recent fall R knee XR neg for acute Heat, toradol Subjective Pt is feeling improved overall. His main concern is R knee pain and swelling. Daughter is present and states that he seems better to her, but still a bit confused at times with answering some questions as if he were asked a different question. Pt denies fever, SOB, chest pain, abd pain, n/v/c/d. Called by ST for concerns over swallowing. States pt is not able to swallow any consistency at this time Review of Systems Review of Systems: Pertinent positives and negatives reviewed in HPI--all others negative Physical Exam Constitutional: WD/WN, vitals as above Eyes: normal visual serrano by confrontation and + anicteric sclerae Neck: normal visual inspection and trachea midline Respiratory: normal respiratory effort, lungs clear to auscultation Cardiovascular: Rate/Rhythm: regular rate and regular rhythm Gastrointestinal (Abdomen): Inspection/Auscultation: abdomen not distended Percussion/Palpation: abdomen soft; abdomen nontender Musculoskeletal: Head/Neck/Chest: normocephalic and head atraumatic negative for edema, peripheral pulses intact Skin: no rashes, warm and dry Neurologic: awake and + confused (answers are not always c/w question being asked) Speech / Cognition: + abnormal speech (slightly slurred) Motor/Sensory: normal movement Computer Applications Developer strength 5/5 b/l Moving UE equally Psychiatric: A+Ox3, euthymic affect Results & Data ([facility]) Vital Signs (Past 12 Hours) Vital Signs Temp Pulse Pulse Pulse Resp BP Pulse Ox 12/13/19 11:06 36.7 C 86 19 143/81 H 94 12/13/19 10:29 84 18 96 12/13/19 08:03 36.6 C 105 H 22 151/89 H 94 12/13/19 07:46 102 H 12/13/19 05:00 116 H 30 H 193/115 H 95 12/13/19 04:45 110 H 30 H 172/109 H 96 12/13/19 04:26 107 H 30 H 190/102 H 95 12/13/19 04:00 36.8 C 113 H 16 191/106 H 93 12/13/19 03:10 74 22 94 PG Care Time/CCT Total # of Minutes Spent Total Time Spent with Patient: Total time spent is greater than 50% in coordination of care (as documented) at patient's floor/unit and/or counseling patient: Coding Level of Care Code 21254 Subseq Hosp Care Lvl 3 Diagnoses Acute ischemic stroke I63.9 Paroxysmal atrial fibrillation I48.0 Pulmonary embolism I26.93 Pulmonary embolism type: single subsegmental (without acute cor pulmonale) Urinary incontinence R32 Urinary Incontinence type: unspecified incontinence Sleep apnea G47.33 Sleep apnea type: obstructive Diabetes mellitus E11.9 Diabetes mellitus type: type 2 Diabetes mellitus rodent exterminator insulin use: without usp use Diabetes mellitus complication status: without complication CAD (coronary artery disease) I25.10 Coronary Disease-Associated Artery/Lesion type: [place] artery [place] vs. transplanted heart: [place] heart Associated angina: without angina COPD (chronic obstructive pulmonary disease) J44.9 BPH (benign prostatic hyperplasia) N40.0 Lower urinary tract symptom presence: symptoms absent Fatigue R53.83 Fatigue type: unspecified Ambulatory dysfunction R26.2 Oropharyngeal dysphagia R13.12 DVT prophylaxis Z29.9 Discharge planning issues Z02.9 Knee pain M25.569 (1) Pulmonary embolism Pulmonary embolism type: single subsegmental (without acute cor pulmonale) Qualified Code(s): I26.93 - Single subsegmental pulmonary embolism without acute cor pulmonale (2) Urinary incontinence Urinary Incontinence type: unspecified incontinence Qualified Code(s): R32 - Unspecified urinary incontinence (3) Sleep apnea Sleep apnea type: obstructive Qualified Code(s): G47.33 - Obstructive sleep apnea (adult) (pediatric) (4) Diabetes mellitus Diabetes mellitus type: type 2 Diabetes mellitus rodent exterminator insulin use: without usp use Diabetes mellitus complication status: without complication Qualified Code(s): E11.9 - Type 2 diabetes mellitus without complications (5) CAD (coronary artery disease) Coronary Disease-Associated Artery/Lesion type: [place] artery [place] vs. transplanted heart: [place] heart Associated angina: without angina Qualified Code(s): I25.10 - Atherosclerotic heart disease of [place] coronary artery without angina pectoris (6) BPH (benign prostatic hyperplasia) Lower urinary tract symptom presence: symptoms absent Qualified Code(s): N40.0 - Benign prostatic hyperplasia without lower urinary tract symptoms (7) Fatigue Fatigue type: unspecified Qualified Code(s): R53.83 - Other fatigue
[2019-12-13] MEDS ORDERED: TAMSULOSIN HCL 0.4 MG CAP PO SCH (21:00)
[2019-12-13 21:14] LABS: Partial Thromboplastin Ratio 4.1
[2019-12-13 22:07] LABS: Partial Thromboplastin Time 111.8 Seconds (21.0-31.0)
[2019-12-14] MEDS: LACTATED RINGER'S 1,000 ML IV SCH ×3 (01:16→10:18)
[2019-12-14] MEDS: HEPARIN SODIUM/DEXTROSE 25,000 UNITS/500 ML BAG IV SCH ×2 (01:16→07:58)
[2019-12-14] MEDS: KETOROLAC TROMETHAMINE 15 MG/ML VIAL IV PRN (03:21)
[2019-12-14 05:34] LABS: Basophils # (auto) 0.06 K/uL (0-0.2); Basophils % (auto) 0.6 %; Eosinophils # (auto) 1.14 K/uL (0-0.5); Eosinophils % (auto) 11.9 %; Hematocrit (blood only) 35.3 % (42-52); Hemoglobin 12.1 g/dL (14.0-18.0); Immature Granulocytes # (auto) 0.02 K/uL (0.00-0.02); Immature Granulocytes % (auto) 0.2 %; Lymphocytes # (auto) 1.28 K/uL (1.2-3.4); Lymphocytes % (auto) 13.3 %; Mean Corpuscular Hemoglobin 28.5 pg (25-34); Mean Corpuscular Hgb Conc 34.3 g/dL (32-36); Mean Corpuscular Volume 83.3 fL (80-100); Mean Platelet Volume 9.4 fL (7.4-10.4); Monocytes # (auto) 1.03 K/uL (0.11-0.59); Monocytes % (auto) 10.7 %; Neutrophils # (auto) 6.06 K/uL (1.4-6.5); Neutrophils % (auto) 63.3 %; Platelet Count 221 K/uL (130-400); RDW Coefficient of Variation 14.4 % (11.5-14.5); RDW Standard Deviation 44.1 fL (36.4-46.3); Red Blood Count 4.24 M/uL (4.7-6.1); White Blood Count 9.59 K/uL (4.8-10.8)
[2019-12-14 05:57] LABS: BUN Creatinine Ratio 19.9 (10-20); Calcium 8.3 mg/dl (8.5-10.1); Creatinine Clr Calc Pharmacy 97.7 ml/min; Potassium 3.3 mmol/L (3.5-5.1)
[2019-12-14 06:32] LABS: Partial Thromboplastin Ratio 3.6
[2019-12-14 06:52] LABS: Partial Thromboplastin Time 96.7 Seconds (21.0-31.0)
[2019-12-14 06:59] LABS: Estimated Average Glucose 128 mg/dl; Hemoglobin A1C 6.1 % (4.5-5.6)
[2019-12-14] MEDS: CLOPIDOGREL BISULFATE 75 MG TAB PO SCH (07:58)
[2019-12-14] MEDS: POLYETHYLENE (MIRALAX) 17 GM PACK PO SCH ×2 (07:58→20:37)
[2019-12-14] MEDS: FLUTICASONE/VILANTEROL 100/25MCG 14 PUFFS/INHALER INH SCH (08:01)
[2019-12-14] MEDS: POTASSIUM CHLORIDE 20 MEQ TABCR PO SCH ×2 (10:33→10:34)
[2019-12-14 12:28] LABS: iSTAT Art Bld Gas pCO2 Correct 36 mmHg (35-46); iSTAT Art Bld Gas pH Corrected 7.413 (7.35-7.45); iSTAT Arterial Blood Gas HCO3 23 meg/L (19-24); iSTAT Arterial Blood Gas pCO2 36 mmHg (35-46); iSTAT Arterial Blood Gas pH 7.41 (7.35-7.45); iSTAT Arterial Blood Gas pO2 116 mmHg (80-95); iSTAT Arterial Blood Gas pO2 C 115; iSTAT Carbon Dioxide 24 mmol/L (24-31)
[2019-12-14 12:29] LABS: Patient Temperature 36.9; iSTAT Allen Test Acceptable; iSTAT Sample Type Arterial; iSTAT Site R Radial
[2019-12-14] MEDS: POTASSIUM CHLORIDE 20 MEQ in LACTATED RINGER'S 1,000 ML IV SCH ×2 (13:03→21:50)
[2019-12-14 14:11] LABS: Partial Thromboplastin Ratio 2.4
[2019-12-14 14:31] LABS: Partial Thromboplastin Time 63.8 Seconds (21.0-31.0)
--- NOTE | 2019-12-14 14:32 | XRay Report ---
XR chest 1V portable CLINICAL HISTORY: 74 years-old Male presenting with extensive b/l wheezes; ?pulm edema?. TECHNIQUE: Portable upright AP view of the chest was obtained. COMPARISON: 12/13/2019. FINDINGS: Atherosclerosis of the aortic arch. Cardiac silhouette normal in size. No focal opacity. No large eff usion or pneumothorax. Persistent elevation of the right hemidiaphragm Degenerative changes of the th oracic spine. Upper abdomen normal. IMPRESSION: 1. No acute cardiopulmonary disease. ACT 112: Negative or not required by law. Electronically signed by: Sanya Morel M.D. 12/14/2019 2:31 PM
[2019-12-14] MEDS: ALBUT/IPRATROP 3MG/0.5MG NEB 3 ML VIAL NEB SCH ×3 (15:24→22:55)
[2019-12-14] MEDS: DICLOFENAC SOD 1% GEL 100 GM TUBE EXT SCH ×2 (17:07→21:24)
--- NOTE | 2019-12-14 17:49 | Hospitalist Progress Note ---
Date of Service December 14, 2019 Assessment & Plan (1) Oropharyngeal dysphagia: 2nd to right caudate stroke. Seen by speech - not safe to take nutrition/meds by mouth. Consult GI for consideration of PEG. Dr Elena from [facility] aware. Spoke with patient and family - they understand the above. Patient understands it is necessary for his survival and wants to proceed. NPO in meantime; IVF. If there is delay in getting PEG then drop NG tube for enteral feedings. (2) Acute ischemic stroke: MRI with right caudate stroke. Suspect cardioembolic due to a.fib - new diagnosis for him. ECHO findings reviewed. Cont heparin infusion cautiously. Unable to give plavix due to dysphagia. Appreciate PT/OT/speech evals. Cont all 3. Will need rehab. Start statin once feeding tube is in place. LDL 56, HDL 46 on recent lipid profile. (3) Paroxysmal atrial fibrillation: New onset. Self converted in ER just after presentation. He was rate controlled without medication. TSH WNL ECHO with preserved EF and intact valve function. No PAF since ER presentation. Now on heparin infusion. Will ultimately need oral anticoagulant - eliquis? needs PEG first. Cont heparin in meantime and telemetry status. (4) Pulmonary embolism: Pt dx with PE and started on xarelto in 11/2019. however developed hematuria and this was stopped on 11/27/19, The PE was found incidentally by report. CTA this admission w/o PE. He will be on heparin for a.fib regardless. Need to check to see if he has had dopplers of legs at [facility]. Cause of PE?? seems it was unprovoked. (5) Urinary incontinence: condom cath in place w/o hematuria at this time (6) Sleep apnea: Cont to encourage BiPAP at night although patient has been intolerant to CPAP at home (7) Diabetes mellitus: HbA1C 6.4 in August 2019. HbA1C 6.1% this admission. pre-DM. controlled. (8) CAD (coronary artery disease): 2009 - PCI to OM2 with CAROLINE, patient notes being stable for years. No chest pain or shortness of breath on exertion at home. Resume asa or plavix once able to take meds needs statin. ideally should be on BB as well (for PAF and CAD). has not seen cardiology in some time - family requesting f/u with [facility] cardiology post-d/c. (9) COPD (chronic obstructive pulmonary disease): quite wheezy today. cxr obtained - no infiltrates. gave duoneb w/ improved wheezing. schedule the nebs as opposed to PRN. Breo Ellipta 1 puff BID defer on IV steroids for now. (10) BPH (benign prostatic hyperplasia): resume alpha elias once able to take meds again (11) Ambulatory dysfunction: 2nd to OA of right knee? also the stroke was likely subacute and thus was likely the main culprit in his walking issues prior to admission. Cont PT/OT. (12) Knee pain: R knee XR neg for acute fracture but considerable OA effusion present on exam - trauma can cause effusion, OA can cause effusion; no prior h/o gout and knee does not feel like a gouty arthritis voltaren gel QID in meantime could consider arthrocentesis once other issues are addressed (PEG, etc) (13) DVT prophylaxis: heparin infusion family updated 2x's at bedside today Admission and Anticipated Discharge Date Admission Date: December 12, 2019 Subjective patient with ongoing right knee pain - asks if we could do something for this while here. was bothering him before the hospitalization. seen by speech today -- cannot take anything by mouth; needs PEG tube. continues with cough/wheezing - has known COPD. his wheezing is worse than baseline. uses nebs at home for his symptoms. and 2 sons with numerous questions about care plan. tele - NSR. no PAF. tolerating heparin drip without any hematuria. Review of Systems Constitutional: no fever Respiratory: + cough and + wheezing; no sputum production Cardiovascular: no chest pain and no dyspnea at rest Gastrointestinal: no abdominal pain Physical Exam Constitutional: no acute distress audible wheezing, however ENMT: external ear and nose normal, oropharynx normal left lower facial droop Respiratory: no respiratory distress Auscultation: + wheezes (extensive b/l ); no crackles Cardiovascular: Rate/Rhythm: regular rate and regular rhythm Heart Sounds: normal S1 and normal S2; no murmur Vessels: posterior tibial pulses present and dorsalis pedis pulses present; no JVD Extremities: no edema Gastrointestinal (Abdomen): normal bowel sounds, soft, nontender, no hepatosplenomegaly Percussion/Palpation: + hernia (umbilical - reducible ) Musculoskeletal: right knee - moderate effusion present; no redness or warmth; mild tenderness with passive ROM Neurologic: + focal motor deficit (LLE - 3-4/5; RLE 5/5; LUE - near 5/5 strength) Motor/Sensory: no pronator drift dysarthria present Psychiatric: Orientation: alert and oriented x 3 Results & Data ([facility]) Vital Signs (Past 12 Hours) Vital Signs Temp Pulse Pulse Resp BP Pulse Ox 12/14/19 15:56 36.9 C 79 18 142/70 H 94 12/14/19 15:27 74 18 98 12/14/19 11:20 36.6 C 76 18 146/76 H 100 12/14/19 07:26 36.7 C 85 28 H 165/96 H 98 Laboratory Results Laboratory Results - last 24 hr 12/13/19 12/13/19 12/13/19 04:26 05:15 20:42 WBC RBC Hgb Hct MCV MCH MCHC RDW Std Deviation RDW Coeff of [place] Plt Count MPV Immature Gran % (Auto) Neut % (Auto) Lymph % (Auto) [place] % (Auto) Eos % (Auto) Baso % (Auto) Immature Gran # (Auto) Neut # (Auto) Lymph # (Auto) [place] # (Auto) Eos # (Auto) Baso # (Auto) APTT 111.8 H* PTT Ratio 4.1 Specimen Type Arterial Sample Site R Radial Patient Temperature 36.9 POC pH 7.41 POC pCO2 36 POC pO2 116 H POC HCO3 23 POC Total CO2 24 POC Base Excess -2.0 ABG pH (Temp Correct) 7.413 ABG pCO2 (Temp Corrct 36 POC ABG pO2 at Pt Temp 115 POC ABG O2 Sat 99.0 H Arben Test Acceptable O2 Delivery Device Cannula FiO2 (liters per min) 2 Sodium Potassium Chloride Carbon Dioxide Anion Gap BUN Creatinine Est Cr Clr Drug Dosing Est GFR ( Amer) Est GFR (Non-Af Amer) BUN/Creatinine Ratio Glucose Estimat Average Glucose 128 Hemoglobin A1c 6.1 H Calcium 12/14/19 12/14/19 12/14/19 05:22 05:22 05:22 WBC 9.59 RBC 4.24 L Hgb 12.1 L Hct 35.3 L MCV 83.3 MCH 28.5 MCHC 34.3 RDW Std Deviation 44.1 RDW Coeff of [place] 14.4 Plt Count 221 MPV 9.4 Immature Gran % (Auto) 0.2 Neut % (Auto) 63.3 Lymph % (Auto) 13.3 [place] % (Auto) 10.7 Eos % (Auto) 11.9 Baso % (Auto) 0.6 Immature Gran # (Auto) 0.02 Neut # (Auto) 6.06 Lymph # (Auto) 1.28 [place] # (Auto) 1.03 H Eos # (Auto) 1.14 H Baso # (Auto) 0.06 APTT 96.7 H* PTT Ratio 3.6 Specimen Type Sample Site Patient Temperature POC pH POC pCO2 POC pO2 POC HCO3 POC Total CO2 POC Base Excess ABG pH (Temp Correct) ABG pCO2 (Temp Corrct POC ABG pO2 at Pt Temp POC ABG O2 Sat Arben Test O2 Delivery Device FiO2 (liters per min) Sodium 142 Potassium 3.3 L Chloride 108 H Carbon Dioxide 26 Anion Gap 8.0 BUN 16 Creatinine 0.80 Est Cr Clr Drug Dosing 97.7 Est GFR ( Amer) 102.0 Est GFR (Non-Af Amer) 88.0 BUN/Creatinine Ratio 19.9 Glucose 126 H Estimat Average Glucose Hemoglobin A1c Calcium 8.3 L 12/14/19 13:39 WBC RBC Hgb Hct MCV MCH MCHC RDW Std Deviation RDW Coeff of [place] Plt Count MPV Immature Gran % (Auto) Neut % (Auto) Lymph % (Auto) [place] % (Auto) Eos % (Auto) Baso % (Auto) Immature Gran # (Auto) Neut # (Auto) Lymph # (Auto) [place] # (Auto) Eos # (Auto) Baso # (Auto) APTT 63.8 H* PTT Ratio 2.4 Specimen Type Sample Site Patient Temperature POC pH POC pCO2 POC pO2 POC HCO3 POC Total CO2 POC Base Excess ABG pH (Temp Correct) ABG pCO2 (Temp Corrct POC ABG pO2 at Pt Temp POC ABG O2 Sat Arben Test O2 Delivery Device FiO2 (liters per min) Sodium Potassium Chloride Carbon Dioxide Anion Gap BUN Creatinine Est Cr Clr Drug Dosing Est GFR ( Amer) Est GFR (Non-Af Amer) BUN/Creatinine Ratio Glucose Estimat Average Glucose Hemoglobin A1c Calcium PG Care Time/CCT Total # of Minutes Spent Total Time Spent with Patient: Total time spent is greater than 50% in coordination of care (as documented) at patient's floor/unit and/or counseling patient: Coding Level of Care Code 14720 Subseq Hosp Care Lvl 3 Diagnoses Oropharyngeal dysphagia R13.12 Acute ischemic stroke I63.9 Paroxysmal atrial fibrillation I48.0 Pulmonary embolism I26.93 Pulmonary embolism type: single subsegmental (without acute cor pulmonale) Urinary incontinence R32 Urinary Incontinence type: unspecified incontinence Sleep apnea G47.33 Sleep apnea type: obstructive Diabetes mellitus E11.9 Diabetes mellitus type: type 2 Diabetes mellitus group home insulin use: without health care analyst use Diabetes mellitus complication status: without complication CAD (coronary artery disease) I25.10 Coronary Disease-Associated Artery/Lesion type: [place] artery [place] vs. transplanted heart: [place] heart Associated angina: without angina COPD (chronic obstructive pulmonary disease) J44.9 BPH (benign prostatic hyperplasia) N40.0 Lower urinary tract symptom presence: symptoms absent Ambulatory dysfunction R26.2 Knee pain M25.569 DVT prophylaxis Z29.9 (1) Pulmonary embolism Pulmonary embolism type: single subsegmental (without acute cor pulmonale) Qualified Code(s): I26.93 - Single subsegmental pulmonary embolism without acute cor pulmonale (2) Urinary incontinence Urinary Incontinence type: unspecified incontinence Qualified Code(s): R32 - Unspecified urinary incontinence (3) Sleep apnea Sleep apnea type: obstructive Qualified Code(s): G47.33 - Obstructive sleep apnea (adult) (pediatric) (4) Diabetes mellitus Diabetes mellitus type: type 2 Diabetes mellitus group home insulin use: without group home use Diabetes mellitus complication status: without complication Qualified Code(s): E11.9 - Type 2 diabetes mellitus without complications (5) CAD (coronary artery disease) Coronary Disease-Associated Artery/Lesion type: [place] artery [place] vs. transplanted heart: [place] heart Associated angina: without angina Qualified Code(s): I25.10 - Atherosclerotic heart disease of [place] coronary artery without angina pectoris (6) BPH (benign prostatic hyperplasia) Lower urinary tract symptom presence: symptoms absent Qualified Code(s): N40.0 - Benign prostatic hyperplasia without lower urinary tract symptoms
[2019-12-15] MEDS: ALBUT/IPRATROP 3MG/0.5MG NEB 3 ML VIAL NEB SCH ×6 (02:17→22:58)
[2019-12-15] MEDS: HEPARIN SODIUM/DEXTROSE 25,000 UNITS/500 ML BAG IV SCH (05:59)
[2019-12-15] MEDS: POTASSIUM CHLORIDE 20 MEQ in LACTATED RINGER'S 1,000 ML IV SCH ×2 (05:59→13:58)
[2019-12-15 07:27] LABS: Basophils # (auto) 0.03 K/uL (0-0.2); Basophils % (auto) 0.3 %; Eosinophils # (auto) 0.85 K/uL (0-0.5); Eosinophils % (auto) 8.5 %; Hematocrit (blood only) 36.6 % (42-52); Hemoglobin 12.3 g/dL (14.0-18.0); Immature Granulocytes # (auto) 0.02 K/uL (0.00-0.02); Immature Granulocytes % (auto) 0.2 %; Lymphocytes # (auto) 0.94 K/uL (1.2-3.4); Lymphocytes % (auto) 9.4 %; Mean Corpuscular Hemoglobin 28.3 pg (25-34); Mean Corpuscular Hgb Conc 33.6 g/dL (32-36); Mean Corpuscular Volume 84.3 fL (80-100); Mean Platelet Volume 9.5 fL (7.4-10.4); Monocytes # (auto) 0.93 K/uL (0.11-0.59); Monocytes % (auto) 9.3 %; Neutrophils # (auto) 7.18 K/uL (1.4-6.5); Neutrophils % (auto) 72.3 %; Platelet Count 245 K/uL (130-400); RDW Coefficient of Variation 14.1 % (11.5-14.5); RDW Standard Deviation 43.5 fL (36.4-46.3); Red Blood Count 4.34 M/uL (4.7-6.1); White Blood Count 9.95 K/uL (4.8-10.8)
[2019-12-15 07:47] LABS: Partial Thromboplastin Ratio 2.3
[2019-12-15 07:51] LABS: Partial Thromboplastin Time 62.5 Seconds (21.0-31.0)
[2019-12-15 08:09] LABS: BUN Creatinine Ratio 18.6 (10-20); Calcium 8.4 mg/dl (8.5-10.1); Creatinine Clr Calc Pharmacy 105.8 ml/min; Est GFR (African American) 105.3; Est GFR (Non-African American) 90.9; Magnesium 1.8 mg/dl (1.8-2.4); Potassium 3.7 mmol/L (3.5-5.1)
[2019-12-15] MEDS: DICLOFENAC SOD 1% GEL 100 GM TUBE EXT SCH ×4 (08:30→21:14)
[2019-12-15] MEDS: CLOPIDOGREL BISULFATE 75 MG TAB PO SCH (08:30)
[2019-12-15] MEDS: POLYETHYLENE (MIRALAX) 17 GM PACK PO SCH ×2 (08:30→21:14)
[2019-12-15] MEDS: FLUTICASONE/VILANTEROL 100/25MCG 14 PUFFS/INHALER INH SCH (08:30)
--- NOTE | 2019-12-15 09:52 | Gastrointestinal Consultation ---
Date of Consultation December 15, 2019 Assessment & Plan (1) Oropharyngeal dysphagia: Discussed PEG tube placement, benefits & risks at length with patient and family. They are all agreeable to proceeding. -Keep NPO -EGD with PEG today -Will need nutrition input for feedings -Supportive care per primary team Thank you for allowing us to participate in the care of this patient. If you should have any further questions or concerns, do not hesitate to contact us at extension [phone] or [phone]. Present on Admission?: Yes Supervising Physician Co-Signing Physician Notes Agree with PAUL Jose as above Abd: Soft, NT, ND, +BS Anesthesia did not feel that patient was able to undergo EGD with PEG Tube placement secondary to respiratory issues Will schedule patient for OR tomorrow History of Present Illness Reason for Consultation: dysphagia Attending Physician: Luis Deleon History of Present Illness Patient is a 74 yo male with multiple medical comorbidities hospitalized at [facility] with a 2.3 cm acute CVA with severe dysphagia. He has undergone COMBUSTION ENGINEER evaluation and PEG tube placement has been recommended for his severe oropharyngeal dysphagia. The patient is resting comfortably in bed at present. He is accompanied by his significant other & his son. They are all interested in PEG tube placement. He denies a history of abdominal surgery. He reports a history of an umbilical hernia. He denies a history of significant reflux. He endorses occasional heartburn. H/H 12.3/36.6. He is planning to go to [facility] in [place] for PT/OT & continued COMBUSTION ENGINEER. Allergies Allergy/AdvReac Type Severity Reaction Status Date / Time fluticasone Allergy Mild Hives Verified 12/12/19 18:07 salmeterol Allergy Mild Hives Verified 12/12/19 18:07 Home Medications Home Medications Medication Instructions Recorded Confirmed Type albuterol sulfate 90 mcg/actuation 2 puffs INHALATION Q4H #18 gm 07/31/19 12/12/19 Rx aerosol inhaler fluticasone furoate 100 1 inh INH DAILY #1 inhaler 07/31/19 12/12/19 Rx mcg-vilanterol 25 mcg/dose inhalation powder nebulizers #1 ea 07/31/19 12/09/19 Rx tamsulosin 0.4 mg capsule 0.4 mg PO DAILY #90 cap 10/13/19 12/12/19 Rx sildenafil (pulm.hypertension) 20 20 - 100 mg PO ONCE PRN #90 tab 11/09/19 12/12/19 Rx mg tablet aspirin 81 mg tablet,delayed 81 mg PO DAILY 12/09/19 12/12/19 History release Patient History Medical History Arthritis Bronchitis CAD (coronary artery disease) (Chronic) COPD (chronic obstructive pulmonary disease) (Chronic) COPD (chronic obstructive pulmonary disease) Diabetes mellitus (Chronic) Elevated PSA Sleep apnea (Chronic) 09/14/2014- Urinary incontinence Surgical History H/O knee surgery History of cardiac catheterization 05/01/2010-PCI of OM 2 with CAROLINE Family History Mother Heart disease Hypertension Social History Preferred Language: Frisian Communication Ability: Effective Visual Impairment: No Limitations Hearing Ability: Use of Hearing Aid Security Rover Required: No Beliefs That Will Affect Care: None marital status: / Current Living Situation: Alone Current Living Situation Comment: with significant other. Son yemi lives within a few minutes current occupational status: retired Feels Safe at Home: Yes Smoking Status: Former smoker Tobacco Type: cigarettes and smokeless tobacco ; Age Started Using Tobacco: 15 ; Age Quit Using Tobacco: 30 ; packs per day: 2 ; Number of Years Since Quit: 44 ; Second Hand Exposure: Yes ; Hx Alcohol Use: Yes Alcohol type: beer Hx Substance Use: No Diet Comment: regular caffeine: Yes during the past year weight has: decreased > 10 lbs Dental Care, Regularly: Yes Physical Activity Frequency: Does not Exercise Seatbelt Use: always Sunscreen Use: No Review of Systems Constitutional: no fever and no chills Eyes: no acute issues Ear, Nose, Mouth, Throat: no acute issues Respiratory: no cough and no dyspnea Cardiovascular: no chest pain Gastrointestinal: + dysphagia and + constipation; no abdominal pain Musculoskeletal: no acute issues Integumentary: no rash Neurologic: + unsteadiness and + generalized weakness facial droop Psychiatric: no acute issues Hematologic / Lymphatic: no easy bleeding Physical Exam Constitutional: WD/WN, vitals as above Eyes: PERRL, conjunctivae normal, anicteric sclerae ENMT: external ear and nose normal, oropharynx normal Neck: normal visual inspection Respiratory: normal respiratory effort, lungs clear to auscultation Cardiovascular: RRR, no murmur, no edema Gastrointestinal (Abdomen): normal bowel sounds, soft, nontender, no hepatosplenomegaly Musculoskeletal: Gait: + abnormal gait Skin: no rashes, warm and dry Neurologic: Speech / Cognition: + abnormal speech facial droop Psychiatric: Orientation: alert and oriented x 3 Results & Data ([facility]) Vital Signs (Past 12 Hours) Vital Signs Temp Pulse Pulse Pulse Resp BP Pulse Ox 12/15/19 07:30 115 H 12/15/19 07:14 112 H 29 H 97 12/15/19 07:06 36.5 C 99 H 26 H 162/70 H 91 12/15/19 07:03 113 H 28 H 91 12/15/19 03:03 36.8 C 100 H 22 172/72 H 96 12/15/19 02:18 98 H 24 96 12/15/19 01:26 88 12/14/19 23:08 36.7 C 113 H 22 163/78 H 94 12/14/19 22:55 111 H 32 H 96 PG Care Time/CCT Total # of Minutes Spent Total Time Spent with Patient: Total time spent is greater than 50% in coordination of care (as documented) at patient's floor/unit and/or counseling patient: Coding Level of Care Code 36963 Initial Inpt Care Lvl 3 Diagnoses Oropharyngeal dysphagia R13.12
[2019-12-15] MEDS: METOPROLOL TARTRATE 1 MG/ML VIAL IV SCH ×4 (10:18→23:55)
[2019-12-15] MEDS ORDERED: ALBUTEROL 0.083% NEBU SOLN 3 ML VIAL NEB STA (11:03)
--- NOTE | 2019-12-15 11:32 | Communication Note ---
Date of Service: December 15, 2019 Pt. was administered an albuterol nebulizer Tx for his severe COPD,for which there was really no impact since he still has pretty much the same level of audible wheezes.I've discussed the pt. w/ Case and he agrees that the pt should have the PEG procedure in the OR, as he is too critical to have this done in the GI suite.Procedure cancelled and will be scheduled for the OR as per Case.
[2019-12-15 16:33] LABS: Base Excess VBG 2.2 mEq/L; HCO3 VBG 28 mmol/L; PCO2 VBG 48 mmHg (38-50); PO2 VBG 25 mmHg; pH VBG 7.38 (7.36-7.41)
[2019-12-15 16:36] LABS: Oxygen Saturation VBG < 60.0 %
[2019-12-15] MEDS: methylPREDNISolone 40 MG in SYRINGE 0 ML IV SCH ×2 (16:59→23:54)
--- NOTE | 2019-12-15 17:46 | Anesthesiology Consultation ---
Date of Service December 15, 2019 Assessment & Plan Chart Review Chart Review: Acceptable Risk for Surgery Consults Requested none Proposed Anesthesia Additional Comments: Pt is somnolent and not well oriented to provide consent at this time. No family present and ttempted to reach family by phone without success. Staff will re-evaluate mental status and contact family tomorrow for consent if needed. History Surgery Operation Date: 12/15/19 15:45 Proposed Procedures p Peg Tube Placement Dr Elena - Josiah Oliva Case, DO Operation Date: 12/16/19 08:20 Proposed Procedures p Esophagogastroduodenoscopy - Josiah Oliva Case, DO s With Peg Tube Placement - Josiah Lisa. Case, DO Height/Weight Height: 5 ft 10 in Weight: 104.1 kg Allergies Allergy/AdvReac Type Severity Reaction Status Date / Time fluticasone Allergy Mild Hives Verified 12/12/19 18:07 salmeterol Allergy Mild Hives Verified 12/12/19 18:07 Medications Home Medications Medication Instructions Recorded Confirmed Last Taken albuterol sulfate 90 mcg/actuation 2 puffs INHALATION Q4H #18 gm 07/31/19 12/12/19 Unknown aerosol inhaler fluticasone furoate 100 1 inh INH DAILY #1 inhaler 07/31/19 12/12/19 Unknown mcg-vilanterol 25 mcg/dose inhalation powder nebulizers #1 ea 07/31/19 12/09/19 Unknown tamsulosin 0.4 mg capsule 0.4 mg PO DAILY #90 cap 10/13/19 12/12/19 Unknown sildenafil (pulm.hypertension) 20 20 - 100 mg PO ONCE PRN #90 tab 11/09/19 12/12/19 Unknown mg tablet aspirin 81 mg tablet,delayed 81 mg PO DAILY 12/09/19 12/12/19 Unknown release Active Medications Generic Name Dose Route Start Last Admin Trade Name Freq PRN Reason Stop Dose Admin Albuterol 3 ml 12/12/19 21:25 12/13/19 22:14 Duoneb NEB 01/11/20 21:29 3 ml Q6H PRN Administration Shortness of breath, chest tightness, wheezing Albuterol 3 ml 12/14/19 15:00 12/15/19 15:20 Duoneb NEB 01/13/20 14:59 3 ml Q4R ADOLFO Administration Clopidogrel Bisulfate 75 mg 12/13/19 09:00 12/15/19 08:30 Plavix PO 01/12/20 08:59 Not Given QAM ADOLFO Diclofenac Sodium 4 gm 12/14/19 17:00 12/15/19 16:59 Voltaren 1% Top EXT 01/13/20 16:59 4 gm QID ADOLFO Administration Fluticasone/Vilanterol 1 puffs 12/13/19 09:00 12/15/19 08:30 Breo Ellipta 100/25 Mcg Inh INH 01/12/20 08:59 1 puffs DAILY ADOLFO Administration Gadobutrol 10 ml 12/12/19 20:56 12/12/19 20:56 Gadavist 65ml IV 12/16/19 20:55 10 ml ONCE PRN Administration Interaction Checking Heparin Sodium/Dextrose 25,000 units in 500 mls @ 18 mls/hr 12/13/19 05:30 12/15/19 14:50 Heparin Sodium/Dextrose IV 01/12/20 05:29 900 units/hr .Q24H ADOLFO 18 mls/hr Titration Protocol 900 UNITS/HR Potassium Chloride 20 meq/ 1,010 mls @ 75 mls/hr 12/14/19 12:30 12/15/19 13:58 Lactated Ringer's IV 01/13/20 12:29 125 mls/hr .[id number] ADOLFO Administration Methylprednisolone 40 mg/ 0.64 mls @ 1.5 mls/min 12/15/19 16:00 12/15/19 16:59 Syringe IV 01/14/20 15:59 1.5 mls/min Q8H ADOLFO Administration Ioversol 119 ml 12/12/19 17:36 12/12/19 17:36 Optiray 320 125ml IV 12/16/19 17:35 119 ml ONCE PRN Administration Interaction Checking Ioversol 118 ml 12/13/19 05:28 12/13/19 05:28 Optiray 320 125ml IV 12/17/19 05:27 1 ml ONCE PRN Administration Interaction Checking Ketorolac Tromethamine 15 mg 12/13/19 11:08 12/14/19 03:21 Toradol IV 12/18/19 11:07 15 mg Q6H PRN Administration Pain Metoprolol Tartrate 2.5 mg 12/15/19 09:35 12/15/19 17:04 Lopressor IV 01/14/20 09:34 2.5 mg Q6 ADOLFO Administration Polyethylene Glycol 17 gm 12/13/19 09:00 12/15/19 08:30 Miralax Powder Packet PO 01/12/20 08:59 Not Given BID ADOLFO Past Medical History Medical History Arthritis Bronchitis CAD (coronary artery disease) (Chronic) COPD (chronic obstructive pulmonary disease) (Chronic) COPD (chronic obstructive pulmonary disease) Diabetes mellitus (Chronic) Elevated PSA Sleep apnea (Chronic) 09/14/2014- Urinary incontinence Past Family History Family History Mother Heart disease Hypertension Denies family history of Ovarian cancer Prostate cancer Breast cancer Lung cancer Colorectal cancer Past Surgical History Surgical History H/O knee surgery History of cardiac catheterization 05/01/2010-PCI of OM 2 with CAROLINE Social History Smoking Status: Former smoker tobacco type: cigarettes and smokeless tobacco Smoking End Date: 44 years ago Hx Alcohol Use: Yes Alcohol type: beer alcohol intake frequency: holidays/special occasions only Hx Substance Use: No Physical Exam Vital Signs Last Vital Signs Temp 36.8 C 12/15/19 15:25 Pulse 83 12/15/19 16:00 Resp 20 12/15/19 15:25 BP 149/82 H 12/15/19 15:25 Pulse Ox 100 12/15/19 15:25 Testing Laboratory Results 12/15/19 07:07 12/15/19 07:07 PT 10.6 Seconds (9.0-12.0) 12/12/19 17:16 INR 1.0 (0.9-1.1) 12/12/19 17:16 APTT 62.5 Seconds (21.0-31.0) H* 12/15/19 07:07 Hemoglobin A1c 6.1 % (4.5-5.6) H 12/13/19 04:26 Blood Type O Positive 12/12/19 17:17 Antibody Screen NEGATIVE 12/12/19 17:17
--- NOTE | 2019-12-15 17:46 | CT Scan Report ---
CT head/brain wo con CLINICAL HISTORY: 74 years-old Male presenting with confusion; CVA; eval hemorrhagic conversion. TECHNIQUE: Multidetector CT imaging of the head was performed without the use of intravenous contrast . IV contrast: None. One or more dose lowering techniques were used consistent with the principles of ALARA (as low as reasonably achievable), including automatic exposure control, mA or kV adjustment t o individual patient size, and/or use of iterative reconstruction. COMPARISON: 12/13/2019. CT DOSE (mGy.cm): The estimated cumulative dose is 537.48 mGy.cm. 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 Proportional ventricular and sulcal prominence, likely age-related parenchymal volume loss. No hemorr tommy. Severe periventricular and subcortical white matter hypoattenuation, nonspecific but likely ind icative of chronic small vessel ischemic change. Old lacunar infarcts noted in the bilateral basal ga nglia. Redemonstration of the acute lacunar infarct in the right caudate body and right periventricul ar white matter unchanged in size (series 2 image 17). No acute territorial infarct. No mass effect o r midline shift. No extra-axial fluid collection. Postsurgical changes of the paranasal sinuses. Calv arium intact. IMPRESSION: 1. No hemorrhagic conversion. Stable size and appearance of the acute lacunar infarct in the right c audate body/periventricular white matter. No new acute intracranial pathology. 2. Severe chronic small vessel ischemic change. 3. Bilateral basal ganglia old lacunar infarcts. ACT 112: Negative or not required by law. Electronically signed by: Sanya Morel M.D. 12/15/2019 5:44 PM
--- NOTE | 2019-12-15 20:23 | Hospitalist Progress Note ---
Date of Service December 15, 2019 Assessment & Plan (1) COPD (chronic obstructive pulmonary disease): numerous chest x-rays this admission (including yesterday) without any infiltrates. he intermittently has significant wheezing w/ distress -- suspect he is microaspirating his secretions which worsens the wheezing. I have asked nursing staff to keep HOB raised past 45 degrees at all times. Cont nebs q4h. Add solumedrol 40mg IV q8h in the event he is developing a COPD exacerbation. Hopefully this will improve his breathing so that he can undergo his PEG tube placement by Dr Elena. I still don't see evidence of complicating CHF or pneumonia process clinically or radiographically. Cont breo. VBG obtained today and pH and pCO2 acceptable. Do recommend that BIPAP be used at bedtime and with naps. (2) Oropharyngeal dysphagia: 2nd to right caudate stroke. Seen by speech - not safe to take nutrition/meds by mouth. Consulted GI for consideration of PEG - Dr Elena - was to have the PEG today but canceled due to COPD/severe wheezing. To be done in OR - hopefully tomorrow. Hold heparin drip in am tomorrow in anticipation of PEG placement. Spoke with patient and family on 12/14 - they understand the above. Patient understands it is necessary for his survival and wants to proceed. NPO in meantime; cont IVF but reduce rate to 75cc/hr. If there is delay in getting PEG then drop NG tube for enteral feedings. (3) Acute ischemic stroke: MRI with right caudate stroke. Suspect cardioembolic due to a.fib - new diagnosis for him. ECHO findings reviewed. Cont heparin infusion cautiously. HOLD for PEG tube placement tomorrow (hold heparin starting 3-4 hours pre-procedure). Unable to give plavix due to dysphagia. Appreciate PT/OT/speech evals. Cont all 3. Will need rehab. Start statin once feeding tube is in place. LDL 56, HDL 46 on recent lipid profile. Repeated his head CT today to r/o hemorrhagic conversion given altered MS - negative for such. Stroke area appears stable on CT as well. (4) Paroxysmal atrial fibrillation: New onset. Self converted in ER just after presentation. He was rate controlled without medication. TSH WNL ECHO with preserved EF and intact valve function. No PAF since ER presentation. Now on heparin infusion. Will ultimately need oral anticoagulant - eliquis? needs PEG first. Cont heparin in meantime and telemetry status. (5) Pulmonary embolism: Pt dx with PE and started on xarelto in 11/2019. however developed hematuria and this was stopped on 11/27/19, The PE was found incidentally by report. CTA this admission w/o PE. He will be on heparin for a.fib regardless. Need to check to see if he has had dopplers of legs at [facility]. Cause of PE?? seems it was unprovoked. (6) Urinary incontinence: condom cath in place w/o hematuria at this time (7) Sleep apnea: Cont to encourage BiPAP at night although patient has been intolerant/noncompliant w/ CPAP at home (8) Diabetes mellitus: HbA1C 6.4 in August 2019. HbA1C 6.1% this admission. pre-DM. controlled. (9) CAD (coronary artery disease): 2009 - PCI to OM2 with CAROLINE, patient notes being stable for years. No chest pain or shortness of breath on exertion at home. Resume asa or plavix once able to take meds needs statin. ideally should be on BB as well (for PAF and CAD). I have started lopressor IV 2.5mg q6h. has not seen cardiology in some time - family requesting f/u with [facility] cardiology post-d/c. (10) BPH (benign prostatic hyperplasia): resume alpha elias once able to take meds again (11) Ambulatory dysfunction: 2nd to OA of right knee? also the stroke was likely subacute and thus was likely the main culprit in his walking issues prior to admission. Cont PT/OT. (12) Knee pain: R knee XR neg for acute fracture but considerable OA effusion present on exam - trauma can cause effusion, OA can cause effusion; no prior h/o gout and knee does not feel like a gouty arthritis voltaren gel QID in meantime could consider arthrocentesis once other issues are addressed (PEG, etc) (13) Metabolic encephalopathy: VBG w/o significant hypercarbia CT head today unchanged hospital psychosis?? monitor carefully AVOID BENZOS and SEDATIVES (14) DVT prophylaxis: heparin infusion family updated extensively on 12/14 Admission and Anticipated Discharge Date Admission Date: December 12, 2019 Subjective upon my arrival for bedside rounds patient was finishing a neb treatment. he was audibly wheezing. he was lying in a fairly supine position. I sat him up in bed and the wheezing quickly improved. oddly he said he "felt fine" and that his breathing was ok. he denied significant cough. his speech was quite dysarthric today making it hard to communicate. staff report intermittent confusion throughout the day. he denied any new neurological symptoms. tele overnight - NSR, no a.fib; occasional sinus tach. Review of Systems Constitutional: no fever and no anorexia (hungry - asks for food ) Respiratory: + dyspnea on exertion and + wheezing; no cough Cardiovascular: no chest pain Gastrointestinal: no abdominal pain Physical Exam Constitutional: + acute distress (tachypnea, wheezing - when laying flat; improved sitting up), + ill appearing and + altered mental status (slightly confused during the visit ) ENMT: external ear and nose normal, oropharynx normal (copious amounts of dry sputum/oral secretions on roof of mouth ) Mouth: + dry oral mucous membranes Respiratory: + respiratory distress and + tachypneic Auscultation: + wheezes (extensive b/l ); no crackles Cardiovascular: Rate/Rhythm: regular rate and regular rhythm Heart Sounds: normal S1 and normal S2; no murmur Vessels: posterior tibial pulses present and dorsalis pedis pulses present; no JVD Extremities: no edema Gastrointestinal (Abdomen): normal bowel sounds, soft, nontender, no hepatosplenomegaly Percussion/Palpation: + hernia (umbilical - reducible ) Neurologic: + focal motor deficit (LLE 4/5; RLE 5/5; LUE - near 5/5 strength) Speech / Cognition: + abnormal speech (significant dysarthria) Motor/Sensory: no pronator drift Psychiatric: Orientation: alert and oriented x 3 (surprisingly oriented to person/place/time but confused w/ other topics) Results & Data ([facility]) Vital Signs (Past 12 Hours) Vital Signs Temp Pulse Pulse Pulse Resp BP BP 12/15/19 16:00 83 12/15/19 15:25 36.8 C 85 20 149/82 H 12/15/19 15:22 87 24 12/15/19 11:39 36.8 C 82 20 145/79 H 12/15/19 11:14 82 20 12/15/19 11:08 36.6 C 85 28 H 170/78 H 12/15/19 10:18 101 H 136/72 Pulse Ox 12/15/19 16:00 12/15/19 15:25 100 12/15/19 15:22 97 12/15/19 11:39 99 12/15/19 11:14 100 12/15/19 11:08 99 12/15/19 10:18 Laboratory Results Laboratory Results - last 24 hr 12/15/19 12/15/19 12/15/19 07:07 07:07 07:07 WBC 9.95 RBC 4.34 L Hgb 12.3 L Hct 36.6 L MCV 84.3 MCH 28.3 MCHC 33.6 RDW Std Deviation 43.5 RDW Coeff of [place] 14.1 Plt Count 245 MPV 9.5 Immature Gran % (Auto) 0.2 Neut % (Auto) 72.3 Lymph % (Auto) 9.4 [place] % (Auto) 9.3 Eos % (Auto) 8.5 Baso % (Auto) 0.3 Immature Gran # (Auto) 0.02 Neut # (Auto) 7.18 H Lymph # (Auto) 0.94 L [place] # (Auto) 0.93 H Eos # (Auto) 0.85 H Baso # (Auto) 0.03 APTT 62.5 H* PTT Ratio 2.3 VBG pH VBG pCO2 VBG pO2 VBG HCO3 VBG O2 Saturation VBG Base Excess Barometric Pressure Sodium 140 Potassium 3.7 Chloride 106 Carbon Dioxide 25 Anion Gap 9.0 BUN 14 Creatinine 0.74 Est Cr Clr Drug Dosing 105.8 Est GFR ( Amer) 105.3 Est GFR (Non-Af Amer) 90.9 BUN/Creatinine Ratio 18.6 Glucose 135 H Calcium 8.4 L Magnesium 1.8 12/15/19 16:18 WBC RBC Hgb Hct MCV MCH MCHC RDW Std Deviation RDW Coeff of [place] Plt Count MPV Immature Gran % (Auto) Neut % (Auto) Lymph % (Auto) [place] % (Auto) Eos % (Auto) Baso % (Auto) Immature Gran # (Auto) Neut # (Auto) Lymph # (Auto) [place] # (Auto) Eos # (Auto) Baso # (Auto) APTT PTT Ratio VBG pH 7.38 VBG pCO2 48 VBG pO2 25 VBG HCO3 28 VBG O2 Saturation < 60.0 VBG Base Excess 2.2 Barometric Pressure 728.7 Sodium Potassium Chloride Carbon Dioxide Anion Gap BUN Creatinine Est Cr Clr Drug Dosing Est GFR ( Amer) Est GFR (Non-Af Amer) BUN/Creatinine Ratio Glucose Calcium Magnesium PG Care Time/CCT Total # of Minutes Spent Total Time Spent with Patient: Total time spent is greater than 50% in coordination of care (as documented) at patient's floor/unit and/or counseling patient: Coding Level of Care Code 64146 Subseq Hosp Care Lvl 3 Diagnoses COPD (chronic obstructive pulmonary disease) J44.1 COPD type: COPD with acute exacerbation Oropharyngeal dysphagia R13.12 Acute ischemic stroke I63.9 Paroxysmal atrial fibrillation I48.0 Pulmonary embolism I26.93 Pulmonary embolism type: single subsegmental (without acute cor pulmonale) Urinary incontinence R32 Urinary Incontinence type: unspecified incontinence Sleep apnea G47.33 Sleep apnea type: obstructive Diabetes mellitus E11.9 Diabetes mellitus complication status: without complication 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 transplanted heart: lummi heart BPH (benign prostatic hyperplasia) N40.0 Lower urinary tract symptom presence: symptoms absent Ambulatory dysfunction R26.2 Knee pain M25.569 Metabolic encephalopathy G93.41 DVT prophylaxis Z29.9 (1) BPH (benign prostatic hyperplasia) Lower urinary tract symptom presence: symptoms absent Qualified Code(s): N40.0 - Benign prostatic hyperplasia without lower urinary tract symptoms (2) Sleep apnea Sleep apnea type: obstructive Qualified Code(s): G47.33 - Obstructive sleep apnea (adult) (pediatric) (3) Urinary incontinence Urinary Incontinence type: unspecified incontinence Qualified Code(s): R32 - Unspecified urinary incontinence (4) Diabetes mellitus Diabetes mellitus complication status: without complication Diabetes mellitus senior care insulin use: without solar energy installation manager use Diabetes mellitus type: type 2 Qualified Code(s): E11.9 - Type 2 diabetes mellitus without complications (5) CAD (coronary artery disease) Associated angina: without angina Coronary Disease-Associated Artery/Lesion type: lummi artery [place] vs. transplanted heart: lummi heart Qualified Code(s): I25.10 - Atherosclerotic heart disease of lummi coronary artery without angina pectoris (6) COPD (chronic obstructive pulmonary disease) COPD type: COPD with acute exacerbation Qualified Code(s): J44.1 - Chronic obstructive pulmonary disease with (acute) exacerbation (7) Pulmonary embolism Pulmonary embolism type: single subsegmental (without acute cor pulmonale) Qualified Code(s): I26.93 - Single subsegmental pulmonary embolism without acute cor pulmonale
[2019-12-16] MEDS: POTASSIUM CHLORIDE 20 MEQ in LACTATED RINGER'S 1,000 ML IV SCH ×2 (02:10→14:39)
[2019-12-16] MEDS: ALBUT/IPRATROP 3MG/0.5MG NEB 3 ML VIAL NEB SCH ×6 (03:10→23:10)
[2019-12-16] MEDS: HEPARIN SODIUM/DEXTROSE 25,000 UNITS/500 ML BAG IV SCH ×3 (04:49→20:40)
[2019-12-16] MEDS: METOPROLOL TARTRATE 1 MG/ML VIAL IV SCH ×4 (05:33→23:59)
[2019-12-16 07:43] LABS: BUN Creatinine Ratio 17.5 (10-20); Calcium 9.2 mg/dl (8.5-10.1); Est GFR (African American) 102.5; Est GFR (Non-African American) 88.5
[2019-12-16 07:44] LABS: Phosphorus 3.5 mg/dl (2.5-4.9)
[2019-12-16 08:11] LABS: Partial Thromboplastin Ratio 1.6; Partial Thromboplastin Time 43.4 Seconds (21.0-31.0)
[2019-12-16] MEDS: CLOPIDOGREL BISULFATE 75 MG TAB PO SCH (09:15)
[2019-12-16] MEDS: POLYETHYLENE (MIRALAX) 17 GM PACK PO SCH ×2 (09:15→20:46)
[2019-12-16] MEDS: FLUTICASONE/VILANTEROL 100/25MCG 14 PUFFS/INHALER INH SCH (09:20)
[2019-12-16] MEDS: methylPREDNISolone 40 MG in SYRINGE 0 ML IV SCH ×2 (09:20→18:02)
[2019-12-16] MEDS: DICLOFENAC SOD 1% GEL 100 GM TUBE EXT SCH ×4 (09:20→21:46)
--- NOTE | 2019-12-16 10:10 | History & Physical Bridge Note ---
Date of Service December 16, 2019 History & Physical Bridge Note I have examined the patient, reviewed the History & Physical and in the interval since the performance of the History & Physical I have noted the following changes of clinical significance: no changes noted. Patient was scheduled for PEG placement on 12/15/2019. Procedure was cancelled after anesthesia due to respiratory concerns and has been rescheduled for 12/16/2019 to be done in the OR--time to be determined. Will contact floor with OR time when available as heparin gtt needs to be held 2 hours prior. Patient reports improvement in his breathing. Lung exam is unremarkable at the time of my visit, though concern is that he continues to aspirate on his secretions. Thank you for allowing us to participate in the care of this patient. If you should have any further questions or concerns, do not hesitate to contact us at extension [phone] or [phone]. Supervising Physician Co-Signing Physician Notes Agree with PAUL Jose as above Patient is much more alert and oriented today. Able to answer questions appropriately. Abd: Soft, NT, ND, +BS Continue current therapy Proceed with EGD/PEG placement today Further recommendations to follow
[2019-12-16] MEDS ORDERED: Nursing to Pharmacy Communication ONE ×2 (10:28→18:46)
[2019-12-16] MEDS ORDERED: CEFAZOLIN 2000MG 2,000 MG/15 ML SYR IV SCH (14:00)
[2019-12-16] MEDS ORDERED: fentaNYL citrate 100 MCG/2 ML VIAL ONE (16:28)
[2019-12-16] MEDS ORDERED: ONDANSETRON INJ 2 MG/ML 2 ML VIAL ONE (16:29)
[2019-12-16] MEDS ORDERED: PROPOFOL IV EMULSION 10 MG/ML 20 ML VIAL IV ONE (16:29)
[2019-12-16] MEDS ORDERED: LIDOCAINE HCL 2% 2 ML VIAL/AMP(20MG/ML) INFIL ONE (16:29)
--- NOTE | 2019-12-16 17:05 | GI REPORT ---
Patient Name: Kei Lassiter Procedure Date: 12/16/2019 4:28 PM Date of : 1945 Admit Type: Inpatient Age: 74 Gender: Male Attending MD: Josiah Elena DO Procedure: Upper GI endoscopy Providers: Josiah Elena DO Referring MD: Luis Deleon Indications: Dysphagia, Place PEG because patient is unable to eat due to stroke (CVA) Medicines: Monitored Anesthesia Care Complications: No immediate complications. Estimated Blood Loss: Estimated blood loss was minimal. Procedure: Pre-Anesthesia Assessment: - Prior to the procedure, a History and Physical was performed, and patient medications and allergies were reviewed. The patient's tolerance of previous anesthesia was also reviewed. The risks and benefits of the procedure and the sedation options and risks were discussed with the patient. All questions were answered, and informed consent was obtained. Prior Anticoagulants: The patient has taken heparin, last dose was day of procedure. ASA Grade Assessment: IV - A patient with severe systemic disease that is a constant threat to life. After reviewing the risks and benefits, the patient was deemed in satisfactory condition to undergo the procedure. After obtaining informed consent, the endoscope was passed under direct vision. Throughout the procedure, the patient's blood pressure, pulse, and oxygen saturations were monitored continuously. The Scope was introduced through the mouth, and advanced to the second part of duodenum. The upper GI endoscopy was accomplished without difficulty. The patient tolerated the procedure well. Findings: The esophagus was normal. The stomach was normal. Placement of an externally removable PEG with no T-fasteners was successfully completed. The external bumper was at the 3.0 cm marking on the tube. The examined duodenum was normal. Impression: - Normal esophagus. - Normal stomach. - Normal examined duodenum. - An externally removable PEG placement was successfully completed. - No specimens collected. Recommendation: - Return patient to hospital [facility] for ongoing care. - Please follow the post-PEG recommendations including: Nutrition consult for formula and volume and change dressing on top of bumper daily. - Continue present medications. - Resume heparin at prior dose today. Josiah Elena DO 12/16/2019 5:05:40 PM This report has been signed electronically. Note Initiated On: 12/16/2019 4:28 PM Number of Addenda: 0 I attest to the content of the Intraoperative Record and orders documented therein, exceptions below {[id number]}
--- NOTE | 2019-12-16 17:36 | Anesthesiology Progress Note ---
Date of Service December 16, 2019 Anesthesia Post Procedure Vital Signs Vital Signs: Temp Pulse Pulse Pulse Resp BP BP 12/16/19 17:30 37 C 82 22 143/70 H 12/16/19 17:20 78 20 141/73 H 12/16/19 17:11 36.7 C 79 16 149/78 H 12/16/19 15:55 37.0 C 86 14 159/75 H 12/16/19 15:19 80 18 12/16/19 15:04 36.4 C L 75 19 129/65 12/16/19 14:50 74 12/16/19 11:46 83 12/16/19 11:18 83 16 12/16/19 11:17 36.2 C L 75 18 147/80 H 12/16/19 07:20 73 12/16/19 07:11 36.5 C 65 18 141/75 H 12/16/19 07:06 66 14 12/16/19 05:33 72 152/94 H 12/16/19 05:30 72 17 152/94 H 12/16/19 03:44 36.3 C L 76 18 136/77 12/16/19 03:13 68 18 12/16/19 03:10 61 18 12/15/19 23:50 36.7 C 92 H 20 173/83 H 12/15/19 23:42 69 16 12/15/19 22:59 69 16 12/15/19 22:25 76 16 12/15/19 19:24 80 16 Pulse Ox 12/16/19 17:30 93 12/16/19 17:20 99 12/16/19 17:11 100 12/16/19 15:55 96 12/16/19 15:19 98 12/16/19 15:04 96 12/16/19 14:50 12/16/19 11:46 12/16/19 11:18 99 12/16/19 11:17 97 12/16/19 07:20 12/16/19 07:11 100 12/16/19 07:06 97 12/16/19 05:33 12/16/19 05:30 100 12/16/19 03:44 98 12/16/19 03:13 97 12/16/19 03:10 96 12/15/19 23:50 98 12/15/19 23:42 96 12/15/19 22:59 96 12/15/19 22:25 96 12/15/19 19:24 99 Transfer of Care Handoff Completed per policy Notes Mental Status: alert / awake / arousable and participated in evaluation Nausea / Vomiting: adequately controlled Pain: adequately controlled Airway Patency, RR, SpO2: stable & adequate BP & HR: stable & adequate Hydration State: stable & adequate Anesthetic Complications: no major complications apparent and Pt Satisfied with anesthetic care
[2019-12-16 20:43] LABS: Partial Thromboplastin Ratio 1.5; Partial Thromboplastin Time 39.8 Seconds (21.0-31.0)
--- NOTE | 2019-12-16 21:42 | Hospitalist Progress Note ---
Date of Service December 16, 2019 Assessment & Plan (1) Oropharyngeal dysphagia: 2nd to right caudate stroke. Seen by speech - not safe to take nutrition/meds by mouth. [facility] GI consult (Dr Elena) completed. Underwent successful placement of PEG today w/o apparent complication. Nutrition consulted; tube feeding regimen to be determined. Will start enteral feedings tomorrow am. (2) Acute ischemic stroke: MRI with right caudate stroke. Suspect cardioembolic due to a.fib - new diagnosis for him. Cont heparin infusion cautiously although another CT head yesterday did not show any ICH/hemorrhagic conversion. Unable to give plavix due to dysphagia - will resume likely tomorrow via PEG. Appreciate PT/OT/speech evals. Cont all 3. Will need rehab. Start statin tomorrow. LDL 56, HDL 46 on recent lipid profile. (3) COPD (chronic obstructive pulmonary disease): numerous chest x-rays this admission without any infiltrates. he intermittently has significant wheezing w/ distress -- suspect he is mi croaspirating his secretions which worsens the wheezing. I have asked nursing staff to keep HOB raised past 45 degrees at all times. Cont nebs q4h. Cont solumedrol but lower to 40mg q12h for COPD exacerbation. Wheezing IS improved today. ont breo. Do recommend that BIPAP be used at bedtime and with naps. (4) Paroxysmal atrial fibrillation: New onset. Self converted in ER just after presentation. He was rate controlled without medication. TSH WNL ECHO with preserved EF and intact valve function. No PAF since ER presentation. Now on heparin infusion. Ultimately needs oral agent (eliquis?). (5) Pulmonary embolism: Pt dx with PE and started on xarelto in 11/2019. however developed hematuria and this was stopped on 11/27/19, The PE was found incidentally by report. CTA this admission w/o PE. He will be on heparin for a.fib regardless. Need to check to see if he has had dopplers of legs at [facility]. Cause of PE?? seems it was unprovoked. (6) Urinary incontinence: condom cath in place w/o hematuria at this time (7) Sleep apnea: Cont to encourage BiPAP at night although patient has been intolerant/noncompliant w/ CPAP at home (8) Diabetes mellitus: HbA1C 6.4 in August 2019. HbA1C 6.1% this admission. pre-DM. controlled. (9) CAD (coronary artery disease): 2009 - PCI to OM2 with CAROLINE, patient notes being stable for years. No chest pain or shortness of breath on exertion at home. Resume asa or plavix once able to take meds needs statin. ideally should be on BB as well (for PAF and CAD). I have started lopressor IV 2.5mg q6h. has not seen cardiology in some time - family requesting f/u with [facility] cardiology post-d/c. (10) BPH (benign prostatic hyperplasia): resume alpha elias tomorrow although having no LUTS (11) Ambulatory dysfunction: 2nd to OA of right knee? also the stroke was likely subacute and thus was likely the main culprit in his walking issues prior to admission. Cont PT/OT. Cont voltaren to right knee - he states this is helping. Could consider arthrocentesis. (12) Knee pain: R knee xrays neg for acute fracture but considerable OA effusion present on exam - trauma can cause effusion, OA can cause effusion; no prior h/o gout and knee does not feel like a gouty arthritis voltaren gel QID in meantime - this IS Helping could consider arthrocentesis once other issues are addressed (PEG, etc) (13) Metabolic encephalopathy: VBG w/o significant hypercarbia CT head 12/15 unchanged hospital psychosis?? IMPROVED TODAY continue to AVOID BENZOS and SEDATIVES (14) DVT prophylaxis: heparin infusion family updated extensively on 12/14 updated 12/16 at bedside keep on telemetry Admission and Anticipated Discharge Date Admission Date: December 12, 2019 Subjective saw patient pre-EGD and PEG placement. had "good night" - slept well, breathing is comfortable, no significant cough/wheeze today. no c/o pain. LLE weakness improving. tele w/o a.fib. Review of Systems Constitutional: no fever is hungry and wishes he could eat Respiratory: + wheezing; no dyspnea Cardiovascular: no chest pain, no dyspnea at rest and no paroxysmal nocturnal dyspnea Gastrointestinal: no abdominal pain, no nausea and no vomiting Physical Exam Constitutional: no acute distress and no altered mental status (mentation much improved today ) ENMT: external ear and nose normal, oropharynx normal (copious amounts of dry sputum/oral secretions on roof of mouth ) Mouth: + dry oral mucous membranes Respiratory: no respiratory distress Auscultation: + wheezes (b/l but improved today ); no crackles Cardiovascular: Rate/Rhythm: regular rate and regular rhythm Heart Sounds: normal S1 and normal S2; no murmur Vessels: posterior tibial pulses present and dorsalis pedis pulses present; no JVD Extremities: no edema Gastrointestinal (Abdomen): normal bowel sounds, soft, nontender, no hepatosplenomegaly Percussion/Palpation: + hernia (umbilical - reducible ) Neurologic: + focal motor deficit (LLE 4/5; RLE 5/5; LUE - near 5/5 strength) Speech / Cognition: + abnormal speech (significant dysarthria) Psychiatric: Orientation: alert and oriented x 3 (mentation much improved today ) Results & Data ([facility]) Vital Signs (Past 12 Hours) Vital Signs Temp Pulse Pulse Pulse Resp BP BP 12/16/19 19:38 36.8 C 77 20 146/70 H 12/16/19 19:22 75 18 12/16/19 18:52 87 20 143/77 H 12/16/19 18:20 67 20 147/78 H 12/16/19 18:05 79 20 137/66 12/16/19 18:04 79 163/71 H 12/16/19 17:50 36.3 C L 78 18 163/71 H 12/16/19 17:30 37 C 82 22 143/70 H 12/16/19 17:20 78 20 141/73 H 12/16/19 17:11 36.7 C 79 16 149/78 H 12/16/19 15:55 37.0 C 86 14 159/75 H 12/16/19 15:19 80 18 12/16/19 15:04 36.4 C L 75 19 129/65 12/16/19 14:50 74 12/16/19 11:46 83 12/16/19 11:18 83 16 12/16/19 11:17 36.2 C L 75 18 147/80 H Pulse Ox 12/16/19 19:38 94 12/16/19 19:22 100 12/16/19 18:52 97 12/16/19 18:20 99 12/16/19 18:05 91 12/16/19 18:04 12/16/19 17:50 92 12/16/19 17:30 93 12/16/19 17:20 99 12/16/19 17:11 100 12/16/19 15:55 96 12/16/19 15:19 98 12/16/19 15:04 96 12/16/19 14:50 12/16/19 11:46 12/16/19 11:18 99 12/16/19 11:17 97 Laboratory Results Laboratory Results - last 24 hr 12/16/19 12/16/19 12/16/19 06:21 06:21 20:12 APTT 43.4 H 39.8 H PTT Ratio 1.6 1.5 Sodium 140 Potassium 4.0 Chloride 106 Carbon Dioxide 26 Anion Gap 8.0 BUN 14 Creatinine 0.79 Est Cr Clr Drug Dosing 99.0 Est GFR ( Amer) 102.5 Est GFR (Non-Af Amer) 88.5 BUN/Creatinine Ratio 17.5 Glucose 138 H Calcium 9.2 Phosphorus 3.5 PG Care Time/CCT Total # of Minutes Spent Total Time Spent with Patient: Total time spent is greater than 50% in coordination of care (as documented) at patient's floor/unit and/or counseling patient: Coding Level of Care Code 76413 Subseq Hosp Care Lvl 3 Diagnoses Oropharyngeal dysphagia R13.12 Acute ischemic stroke I63.9 COPD (chronic obstructive pulmonary disease) J44.1 COPD type: COPD with acute exacerbation Paroxysmal atrial fibrillation I48.0 Pulmonary embolism I26.93 Pulmonary embolism type: single subsegmental (without acute cor pulmonale) Urinary incontinence R32 Urinary Incontinence type: unspecified incontinence Sleep apnea G47.33 Sleep apnea type: obstructive Diabetes mellitus E11.9 Diabetes mellitus type: type 2 Diabetes mellitus correction insulin use: without correction use Diabetes mellitus complication status: without complication CAD (coronary artery disease) I25.10 Coronary Disease-Associated Artery/Lesion type: [place] artery [place] vs. transplanted heart: [place] heart Associated angina: without angina BPH (benign prostatic hyperplasia) N40.0 Lower urinary tract symptom presence: symptoms absent Ambulatory dysfunction R26.2 Knee pain M25.569 Metabolic encephalopathy G93.41 DVT prophylaxis Z29.9 (1) COPD (chronic obstructive pulmonary disease) COPD type: COPD with acute exacerbation Qualified Code(s): J44.1 - Chronic obstructive pulmonary disease with (acute) exacerbation (2) Pulmonary embolism Pulmonary embolism type: single subsegmental (without acute cor pulmonale) Qualified Code(s): I26.93 - Single subsegmental pulmonary embolism without acute cor pulmonale (3) Urinary incontinence Urinary Incontinence type: unspecified incontinence Qualified Code(s): R32 - Unspecified urinary incontinence (4) Sleep apnea Sleep apnea type: obstructive Qualified Code(s): G47.33 - Obstructive sleep apnea (adult) (pediatric) (5) Diabetes mellitus Diabetes mellitus type: type 2 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 transplanted heart: [place] heart Associated angina: without angina Qualified Code(s): I25.10 - Atherosclerotic heart disease of [place] coronary artery without angina pectoris (7) BPH (benign prostatic hyperplasia) Lower urinary tract symptom presence: symptoms absent Qualified Code(s): N40.0 - Benign prostatic hyperplasia without lower urinary tract symptoms
[2019-12-17] MEDS: ALBUT/IPRATROP 3MG/0.5MG NEB 3 ML VIAL NEB SCH ×6 (02:11→22:42)
[2019-12-17 03:07] LABS: Hematocrit (blood only) 31.8 % (42-52); Hemoglobin 10.8 g/dL (14.0-18.0); Mean Corpuscular Hemoglobin 28.4 pg (25-34); Mean Corpuscular Volume 83.7 fL (80-100); Mean Platelet Volume 9.5 fL (7.4-10.4); Platelet Count 324 K/uL (130-400); RDW Coefficient of Variation 14.6 % (11.5-14.5); RDW Standard Deviation 44.3 fL (36.4-46.3); White Blood Count 23.87 K/uL (4.8-10.8)
[2019-12-17 03:26] LABS: Partial Thromboplastin Ratio 1.8
[2019-12-17 03:27] LABS: BUN Creatinine Ratio 23.6 (10-20); Calcium 8.6 mg/dl (8.5-10.1); Creatinine Clr Calc Pharmacy 86.9 ml/min; Est GFR (African American) 97.2; Est GFR (Non-African American) 83.8; Partial Thromboplastin Time 47.6 Seconds (21.0-31.0); Potassium 4.3 mmol/L (3.5-5.1)
[2019-12-17] MEDS: POTASSIUM CHLORIDE 20 MEQ in LACTATED RINGER'S 1,000 ML IV SCH ×3 (05:40→22:17)
[2019-12-17] MEDS: METOPROLOL TARTRATE 1 MG/ML VIAL IV SCH (05:57)
[2019-12-17] MEDS ORDERED: methylPREDNISolone 40 MG in SYRINGE 0 ML IV SCH (06:00)
[2019-12-17] MEDS ORDERED: PEPTAMEN INTENSE VHP 1.0 CAL 1,000 ML BAG PEG SCH (07:00)
[2019-12-17] MEDS: KETOROLAC TROMETHAMINE 15 MG/ML VIAL IV PRN (08:20)
[2019-12-17] MEDS: FLUTICASONE/VILANTEROL 100/25MCG 14 PUFFS/INHALER INH SCH (08:27)
[2019-12-17] MEDS: POLYETHYLENE (MIRALAX) 17 GM PACK PEG SCH (08:28)
[2019-12-17] MEDS: DICLOFENAC SOD 1% GEL 100 GM TUBE EXT SCH ×4 (08:28→20:31)
[2019-12-17] MEDS ORDERED: METOPROLOL TARTRATE 25 MG TAB PO SCH (09:00)
[2019-12-17] MEDS ORDERED: CLOPIDOGREL BISULFATE 75 MG TAB PEG SCH (09:00)
[2019-12-17] MEDS: INSULIN GLARGINE SOLOSTAR 100 UNITS/ML 3 ML PEN SC SCH ×2 (10:25→20:54)
--- NOTE | 2019-12-17 10:26 | Hospitalist Progress Note ---
Date of Service December 17, 2019 Assessment & Plan (1) Hemoperitoneum: 2nd to heparin infusion in setting of PEG tube placement early yesterday afternoon. Heparin has been stopped. Plavix will be stopped (although only received his first dose this am). Hemoperitoneum has caused acute blood loss anemia and borderline hypotension. Tx 2 units PRBCs now. Transfer to ICU under Dr Medrano's care. Serial H/H's and exams. Place 2nd large-bore IV. Will consult general surgery to follow along. Appreciate Dr Elena's assistance. (2) Acute blood loss anemia: 2nd to hemoperitoneum. Tx 2 units PRBCs. Serial H/H's. In light of CAD and recent stroke would try to keep Hb >9. Heparin, plavix stopped. Toradol stopped. (3) Abdominal distension: 2nd hemoperitoneum (and to a significantly lesser degree some constipation). See discussion above. (4) Oropharyngeal dysphagia: 2nd to right caudate stroke. Seen by speech - not safe to take nutrition/meds by mouth. POD #1 s/p PEG tube placement by Dr Elena. See discussion above re: hemoperitoneum. Nutrition consulted; tube feeding regimen suggested and started this am at 10cc/hr. PEG tube looks good on CT. Ok to continue enteral feedings per Dr Elena at low rate tonight. (5) Acute ischemic stroke: MRI with right caudate stroke. Suspect cardioembolic due to a.fib - new diagnosis for him. Appreciate PT/OT/speech evals. Cont all 3. Will need rehab post-d/c. Start statin this admission. LDL 56, HDL 46 on recent lipid profile. Had been on heparin infusion for a.fib prior to PEG placement and then following PEG placement (heparin restarted nearly 6 hours post-PEG placement). Heparin now stopped due to intra-abdominal bleeding. Plavix to be stopped. Family counseled that due to bleeding we are forced to stop all anticoagulants and antiplatelet agents. This will infer higher stroke risk being off these meds. Resume down the line when safe to do so. (6) COPD (chronic obstructive pulmonary disease): numerous chest x-rays this admission without any infiltrates. he intermittently has significant wheezing w/ distress -- suspect he is microaspirating his secretions which worsens the wheezing. I have asked nursing staff to keep HOB raised past 45 degrees at all times. Cont nebs q4h. Cont solumedrol but lower to 20mg q12h for COPD exacerbation as wheezing again is much improved today. Cont breo. Do recommend that BIPAP be used at bedtime and with naps as tolerated. (7) Paroxysmal atrial fibrillation: New onset. Converted in ER just after presentation back to NSR. He was rate controlled without medication when in PAF. TSH WNL ECHO with preserved EF and intact valve function. No PAF since ER presentation. Was on heparin infusion for a.fib -- now stopped due to hemoperitoneum. Tele has been NSR since admission. (8) Pulmonary embolism: Pt dx with PE and started on xarelto in 11/2019. Inital CTA was done at [facility]. however developed hematuria and this was stopped on 11/27/19. The PE was found incidentally by report. CTA this admission w/o PE. Significant other stated that dopplers of legs were done in 11/2019 and were neg for DVT. Cause of PE?? seems it was unprovoked. (9) Urinary incontinence: condom cath in place w/o hematuria at this time (10) Sleep apnea: Cont to encourage BiPAP at night although patient has been intolerant/noncompliant w/ CPAP at home (11) Diabetes mellitus: HbA1C 6.4 in August 2019. HbA1C 6.1% this admission. pre-DM. uncontrolled due to steroid use. add lantus. add novolog correction. (12) CAD (coronary artery disease): 2009 - PCI to OM2 with CAROLINE, patient notes being stable for years. No chest pain or shortness of breath on exertion at home. has not seen cardiology in some time - family requesting f[place] [facility] [place]. Was receiving beta elias low-dose -- will hold in light of low-normal BPs due to bleeding. Will need plavix some time down the line as well as statin. Defer both for now. (13) BPH (benign prostatic hyperplasia): alpha elias on hold (14) Ambulatory dysfunction: 2nd to OA of right knee? also the stroke was likely subacute and thus was likely the main culprit in his walking issues prior to admission. Cont PT/OT. Cont voltaren to right knee - he states this is helping. Could consider arthrocentesis to drain fluid if pain recurs (15) Knee pain: R knee xrays neg for acute fracture but considerable OA effusion present on exam - trauma can cause effusion, OA can cause effusion; no prior h/o gout and knee does not feel like a gouty arthritis voltaren gel QID in meantime - this IS Helping could consider arthrocentesis once other issues are addressed (PEG, etc) (16) Metabolic encephalopathy: VBG w/o significant hypercarbia CT head 12/15 unchanged hospital psychosis?? continue to AVOID BENZOS and SEDATIVES he was lethargic today in setting of events of afternoon (17) DVT prophylaxis: stopped all chemical means due to hemoperitoneum SCDS ONLY family updated extensively on 12/14 updated 12/16 at bedside , sons, and other family updated 12/17 multiple times transfer to ICU critical care time 120 minutes -- multiple visits in the setting of intra- abdominal bleeding/hemoperitoneum which is life-threatening, borderline hypotension, etc. Admission and Anticipated Discharge Date Admission Date: December 12, 2019 Subjective saw patient multiple times today. first visit was this am mid-morning. he complained of mild abdominal pain. he had a hard time telling me where the pain was - initially he said it was around the PEG, then told me it was in the lower abdomen. no nausea or emesis. could not tell me when he last passed flatus. he did not have any dyspnea or chest pain. tube feedings were started this am at 10cc/hr. abd x-rays were obtained this am showing PEG tube in place and copious stool especially distally. No free air seen. I ordered a dulcolax suppository and this did not produce any results. Mid-afternoon the patient's nurse astutely noted that Mr Lassiter became tachycardic, pale, and diaphoretic. She informed me of his change in status. He also continued to have abdominal pain. I went to see Mr Lassiter after his nurse informed me of his status. Indeed upon my arrival he was sweaty/diaphoretic and quite pale - much different than earlier in the day. BP was low-normal; he was tachycardic as well. On exam he was still distended with most tenderness in the LLQ. I spoke with Dr Elena given the PEG tube placement yesterday and we collectively agreed that he needed STAT abdominal CT. I did obtain an EKG in light of CAD history and this did not show any new ST changes. Labs were drawn showing acute blood loss anemia. CT was completed and this demonstrated a hemoperitoneum. The heparin drip was stopped immediately once the CT results had returned. Dr Elena and I updated the pt's sons, daughter in law, and significant other. Explained that the heparin infusion in the setting of the PEG tube placement yesterday led to the bleeding. Consent was obtained for PRBCs, and order given for 2 units PRBCs. Prior to the blood a 500cc NS bolus was given as well. Care was discussed with Gregg EVANS and Dr Medrano from the ICU - accepted to ICU for close monitoring. Consult also placed to general surgery to follow along. I then updated the patient's significant other 1 additional time prior to his transfer to ICU. Review of Systems Constitutional: + fatigue Respiratory: no cough and no dyspnea Cardiovascular: no chest pain, no radiating jaw, neck or arm pain, no dyspnea, no orthopnea and no paroxysmal nocturnal dyspnea Gastrointestinal: + abdominal pain and + constipation; no nausea and no vomiting Physical Exam Constitutional: first visit this am -- NAD, normal color; 2nd visit this afternoon - diaphoretic, ill-appearing, sleepy but does awaken easily ENMT: external ear and nose normal, oropharynx normal lips pale Respiratory: no respiratory distress Auscultation: no crackles and no wheezes Cardiovascular: Rate/Rhythm: regular rate and regular rhythm Heart Sounds: normal S1 and normal S2; no murmur Vessels: posterior tibial pulses present and dorsalis pedis pulses present; no JVD Extremities: no edema Gastrointestinal (Abdomen): Inspection/Auscultation: + abdomen distended (marked ); + abnormal bowel sounds (decreased ) and no abdominal wall ecchymosis Percussion/Palpation: + abdomen tender (worst LLQ), + hernia (umbilical - reducible ) and + abdomen firm; no guarding, + abdomen not soft and no hepatosplenomegaly Skin: + pallor Neurologic: + focal motor deficit (LLE 4/5; RLE 5/5; LUE - near 5/5 strength) Speech / Cognition: + abnormal speech (significant dysarthria) Psychiatric: Orientation: alert, oriented to person and oriented to place Results & Data ([facility]) Vital Signs (Past 12 Hours) Vital Signs Temp Pulse Pulse Pulse Resp BP BP 12/17/19 06:59 72 18 12/17/19 06:57 37.2 C 71 19 131/61 12/17/19 04:37 36.9 C 74 18 124/70 12/17/19 02:13 77 18 12/16/19 23:59 86 129/63 12/16/19 23:52 36.7 C 86 16 129/63 12/16/19 23:12 77 18 Pulse Ox 12/17/19 06:59 98 12/17/19 06:57 98 12/17/19 04:37 99 12/17/19 02:13 94 12/16/19 23:59 12/16/19 23:52 95 12/16/19 23:12 93 Laboratory Results Laboratory Results - last 24 hr 12/16/19 12/17/19 12/17/19 20:12 02:45 02:45 WBC 23.87 H RBC 3.80 L Hgb 10.8 L Hct 31.8 L MCV 83.7 MCH 28.4 MCHC 34.0 RDW Std Deviation 44.3 RDW Coeff of [place] 14.6 H Plt Count 324 MPV 9.5 APTT 39.8 H 47.6 H* PTT Ratio 1.5 1.8 Sodium Potassium Chloride Carbon Dioxide Anion Gap BUN Creatinine Est Cr Clr Drug Dosing Est GFR ( Amer) Est GFR (Non-Af Amer) BUN/Creatinine Ratio Glucose POC Glucose Calcium 12/17/19 12/17/19 02:45 08:54 WBC RBC Hgb Hct MCV MCH MCHC RDW Std Deviation RDW Coeff of [place] Plt Count MPV APTT PTT Ratio Sodium 140 Potassium 4.3 Chloride 106 Carbon Dioxide 28 Anion Gap 6.0 BUN 21 H Creatinine 0.90 Est Cr Clr Drug Dosing 86.9 Est GFR ( Amer) 97.2 Est GFR (Non-Af Amer) 83.8 BUN/Creatinine Ratio 23.6 H Glucose 166 H POC Glucose 178 H Calcium 8.6 PG Care Time/CCT Total # of Minutes Spent Total Time Spent with Patient: Total time spent is greater than 50% in technical support coordinator rdination of care (as documented) at patient's floor/unit and/or counseling patient: Critical Care Time: Yes Total Critical Care Time: 120 Coding Level of Care Code None Diagnoses Hemoperitoneum K66.1 Acute blood loss anemia D62 Abdominal distension R14.0 Oropharyngeal dysphagia R13.12 Acute ischemic stroke I63.9 COPD (chronic obstructive pulmonary disease) J44.1 COPD type: COPD with acute exacerbation Paroxysmal atrial fibrillation I48.0 Pulmonary embolism I26.93 Pulmonary embolism type: single subsegmental (without acute cor pulmonale) Urinary incontinence R32 Urinary Incontinence type: unspecified incontinence Sleep apnea G47.33 Sleep apnea type: obstructive Diabetes mellitus E11.9 Diabetes mellitus complication status: without complication 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 transplanted heart: [place] heart BPH (benign prostatic hyperplasia) N40.0 Lower urinary tract symptom presence: symptoms absent Ambulatory dysfunction R26.2 Knee pain M25.569 Metabolic encephalopathy G93.41 DVT prophylaxis Z29.9 Additional Codes Critical Care Time - Critical Care Time: Yes ([id number]) Comment 120 minutes total of critical care time (1) BPH (benign prostatic hyperplasia) Lower urinary tract symptom presence: symptoms absent Qualified Code(s): N40.0 - Benign prostatic hyperplasia without lower urinary tract symptoms (2) Sleep apnea Sleep apnea type: obstructive Qualified Code(s): G47.33 - Obstructive sleep apnea (adult) (pediatric) (3) Urinary incontinence Urinary Incontinence type: unspecified incontinence Qualified Code(s): R32 - Unspecified urinary incontinence (4) Diabetes mellitus Diabetes mellitus complication status: without complication Diabetes mellitus prison insulin use: without prison use Diabetes mellitus type: type 2 Qualified Code(s): E11.9 - Type 2 diabetes mellitus without complications (5) CAD (coronary artery disease) Associated angina: without angina Coronary Disease-Associated Artery/Lesion type: [place] artery [place] vs. transplanted heart: [place] heart Qualified Code(s): I25.10 - Atherosclerotic heart disease of [place] coronary artery without angina pectoris (6) COPD (chronic obstructive pulmonary disease) COPD type: COPD with acute exacerbation Qualified Code(s): J44.1 - Chronic obstructive pulmonary disease with (acute) exacerbation (7) Pulmonary embolism Pulmonary embolism type: single subsegmental (without acute cor pulmonale) Qualified Code(s): I26.93 - Single subsegmental pulmonary embolism without acute cor pulmonale
--- NOTE | 2019-12-17 11:32 | XRay Report ---
XR abdomen min 2V HISTORY: 74 years-old Male s/p PEG placement 12/16; abd distension, umb hernia is post placement of a n enteric tube COMPARISON: [facility] 12/13/2019 TECHNIQUE: 2 views of the abdomen FINDINGS: Gastrostomy tube balloon projects over the mid to distal gastric body. The bowel gas pattern is nonob structive. Moderate fecal retention. No pneumatosis or pneumoperitoneum identified. No urolith. 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 Mild right hemidiaphragm elevation. IMPRESSION: Gastrostomy tube distal tip projects over the mid to distal gastric body. ACT 112: Negative or not required by law. The above report was generated using voice recognition software. It may contain grammatical, syntax o r spelling errors. Electronically signed by: Donell Clemons M.D. 12/17/2019 11:31 AM
[2019-12-17] MEDS ORDERED: bisacodyL 10 MG SUPP PR STA (11:50)
[2019-12-17] MEDS: INSULIN ASPART 100 UNITS/ML 3 ML PEN SC SCH ×2 (12:19→17:23)
[2019-12-17] MEDS: SOD PHOSPHATE/SOD BIPHOSPHATE ENEMA 132 ML BTL PR STA ×2 (16:13→20:30)
[2019-12-17 16:46] LABS: Hematocrit (blood only) 24.2 % (42-52); Hemoglobin 8.1 g/dL (14.0-18.0); Mean Corpuscular Hemoglobin 28.6 pg (25-34); Mean Corpuscular Hgb Conc 33.5 g/dL (32-36); Mean Corpuscular Volume 85.5 fL (80-100); Mean Platelet Volume 9.9 fL (7.4-10.4); Platelet Count 322 K/uL (130-400); RDW Coefficient of Variation 14.8 % (11.5-14.5); Red Blood Count 2.83 M/uL (4.7-6.1); White Blood Count 25.62 K/uL (4.8-10.8)
[2019-12-17] MEDS ORDERED: IOVERSOL 100ml IV PRN (16:51)
[2019-12-17 17:06] LABS: Basophils # (auto) 0.01 K/uL (0-0.2); Immature Granulocytes # (auto) 0.17 K/uL (0.00-0.02); Immature Granulocytes % (auto) 0.7 %; Lymphocytes # (auto) 1.43 K/uL (1.2-3.4); Lymphocytes % (auto) 5.6 %; Monocytes # (auto) 2.81 K/uL (0.11-0.59); Neutrophils % (auto) 82.7 %
[2019-12-17 17:09] LABS: Alanine Aminotransferase 21 U/L (12-78); Albumin Level 2.7 gm/dl (3.4-5.0); Aspartate Aminotransferase 10 U/L (15-37); BUN Creatinine Ratio 33.7 (10-20); Blood Urea Nitrogen 36 mg/dl (7-18); Carbon Dioxide 26 mmol/L (21-32); Chloride 107 mmol/L (98-107); Creatinine Clr Calc Pharmacy 73.6 ml/min; Est GFR (African American) 78.8; Glucose 184 mg/dl (70-99); Potassium 4.4 mmol/L (3.5-5.1); Sodium 139 mmol/L (136-145)
[2019-12-17 17:14] LABS: Alkaline Phosphatase 60 U/L (45-117); Bilirubin,Total 0.9 mg/dl (0.2-1); Globulin 2.7 gm/dl (2.5-4.0); Total Protein 5.4 gm/dl (6.4-8.2); Troponin I < 0.015 ng/ml (0-0.045)
--- NOTE | 2019-12-17 17:23 | CT Scan Report ---
CT OF THE ABDOMEN AND PELVIS WITH CONTRAST CLINICAL HISTORY: s/p PEG placement 12/16; LLQ pain; ischemia, other? COMPARISON STUDY: CT of the abdomen and pelvis August 06, 2019. Abdominal series performed earlier t jacquie TECHNIQUE: Following IV administration of 94 mL of Optiray-320, axial images of the abdomen and pelvi s were obtained from the lung bases to the proximal femurs. Images were reviewed in the axial, sagitt al, and coronal planes. IV contrast was administered without complication. Automated exposure contro l was utilized for the study. A dose lowering technique was utilized adhering to the principles of A CALEB. CT DOSE: 1620.64 mGy.cm FINDINGS: No pneumatosis, free air or portal venous gas is present. PEG is appropriately positioned. There is a small amount of hemorrhage adjacent to the insertion site. Moderate hemoperitoneum within the abdomen is noted with a small amount of hemoperitoneum within the pelvis. There is also an 11.5 x 9.9 x 5.1 cm complex fluid collection consistent with a hematoma with a hematocrit level within the left anterior abdominal wall, just deep to the rectus sheath. This is likely extraperitoneal. Additio nal hemorrhage within the left paracolic gutter is noted. No active extravasation is identified on th is exam. The spleen, adrenal glands, kidneys and pancreas are normal. No suspicious osseous lesions a re present. Bilateral fat-containing inguinal hernias are noted. There is a small amount of fluid wit hin the left inguinal hernia. IMPRESSION: Appropriately positioned PEG. No free air. Moderate hemoperitoneum within the abdomen an d pelvis and an 11.5 x 9.9 x 5.1 cm extraperitoneal hematoma of the left anterior abdominal wall. Emiliano nielsen discussed with Dr. Elena at time of dictation. ACT 112: Negative or not required by law. Electronically signed by: Del Soler M.D. 12/17/2019 5:21 PM
[2019-12-17] MEDS: methylPREDNISolone 20 MG in SYRINGE 0 ML IV SCH (17:24)
[2019-12-17] MEDS ORDERED: SODIUM CHLORIDE 0.9% 250 ML IV PRN ×2 (17:27→17:57)
--- NOTE | 2019-12-17 17:31 | Gastroenterology Progress Note ---
Date of Service December 17, 2019 Assessment & Plan Admission and Anticipated Discharge Date Admission Date: December 12, 2019 Supervising Physician Co-Signing Physician Notes Assessment: Abdominal pain with evidence of constipation and recent PEG tube placement secondary to CVA with dysphagia. Plan: I ordered a Stat CT scan of the Abd/pelvis and reviewed this with Dr. Soler of Radiology. Patient found to have a peritoneal bleed, most likely secondary to recent PEG tube placement and reinitiation of Heparin drip, also, patient was restarted on Plavix this AM secondary to CVA. I spoke with Nursing team and Heparin gtt was held Discussed case with Dr. Deleon and patient will receive blood transfusions PRN Discussed case with Patient's girlfriend and family Will continue Tube feeds as ordered Monitor for signs of worsening bleeding, and reevaluate in the AM Subjective Patient seen and examined. He had noted pallor, and was complaining of LLQ abdominal pain. Rated pain as 7/10 in intensity, non-radiating without alleviating factors. An X-ray earlier showed moderate fecal load consistent with constipation. He denied lightheadedness or dizziness. He further denied any hematemesis, melena or hematochezia. Nursing reports patient tolerated PEG feedings this AM. Physical Exam Constitutional: + ill appearing Noted pallor Respiratory: normal respiratory effort, lungs clear to auscultation Cardiovascular: Rate/Rhythm: + tachycardic Gastrointestinal (Abdomen): Inspection/Auscultation: normal bowel sounds; abdomen not distended Percussion/Palpation: + abdomen tender (B/L LQ abdominal pain) PEG Tube in place, bumper at 3 cm, no evidence of bleeding Results & Data ([facility]) Vital Signs (Past 12 Hours) Vital Signs Temp Pulse Pulse Pulse Pulse Resp BP 12/17/19 15:13 106 H 16 12/17/19 15:02 36.8 C 90 20 12/17/19 11:42 36.3 C L 79 18 128/76 12/17/19 11:09 67 18 12/17/19 08:00 71 12/17/19 06:59 72 18 12/17/19 06:57 37.2 C 71 19 BP Pulse Ox 12/17/19 15:13 98 12/17/19 15:02 104/66 96 12/17/19 11:42 95 12/17/19 11:09 97 12/17/19 08:00 12/17/19 06:59 98 12/17/19 06:57 131/61 98 PG Care Time/CCT Total # of Minutes Spent Total Time Spent with Patient: Total time spent is greater than 50% in coordination of care (as documented) at patient's floor/unit and/or counseling patient: Coding Level of Care Code 10943 Subseq Hosp Care Lvl 3
--- NOTE | 2019-12-17 18:35 | Critical Care Consultation ---
Date of Consultation December 17, 2019 Assessment & Plan (1) Admitted to intensive care unit: Reason Critically Ill: Mr. Lassiter is a 74 year old male with a past medical history of CAD, diabetes mellitus, COPD, PE diagnosed in Nov 2019 and HEYDI who was transferred to the ICU due to a hemoperitoneum. He requires close hemodynamic monitoring. 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 -thought to be secondary to afib -neurology following Cardiac: Atrial fibrillation -new onset, paroxsymal -hold Lopressor given concern for hypotension -anticoagulation contraindicated -ECHO w/normal LV size and hyperdynamic systolic fx - EF of 70% CAD -s/p PCI w/CAROLINE in 2009 -hold ASA and plavix -no chest pain reported Respiratory: COPD -intermittently wheezing -continue solumedrol for possible COPD exacerbation -supplemental O2 as needed -continue home inhalers PE -diagnosed in Nov 2019 -not on anticoagulation due to hx of hematuria on Xarelto GI: Hemoperitoneum -CT abdomen and pelvis - "Moderate hemoperitoneum within the abdomen and pelvis and an 11.5 x 9.9 x 5.1 cm extraperitoneal hematoma of the left anterior abdominal wall." -heparin drip OFF -stable, monitor H&H GI prophylaxis: IV Zantac q8h NPO - seen by speech and not safe to take p.o. GI following, PEG tube in place - nutrition consulted to determine tube feeding regimen RENAL/LYTES: Creatinine 1.07 Monitor electrolytes : Condom catheter in place Monitor I/Os BPH -hold tamsulosin ENDO: Hx of DM2 -HbA1c 6.1% -ICU hyperglycemic protocol ordered TSH 1.54 HEME: Acute blood loss anemia -secondary to hemoperitoneum -Hgb dropped acutely from 10.8 to 8.1 -due to receive 2 units of blood -monitor Hgb q8h -1L bolus of NS ordered, maintenance IVF after, and rebolus as necessary ID: No infectious process present LINES/IV ACCESS: PIV x 1, US guided IV x1. Consented for central line should the need arise. CODE STATUS: Conditional code - No CPR, no defibrillation DVT PROPHYLAXIS: SCDs, Chemoprophylaxis contraindicated in the setting of active bleeding. Thank you for allowing us to participate in the care of this patient. Please refer to my attending physician's documentation for any further recommendations. (2) Oropharyngeal dysphagia: (3) Acute ischemic stroke: (4) COPD (chronic obstructive pulmonary disease): (5) Paroxysmal atrial fibrillation: (6) Pulmonary embolism: (7) Urinary incontinence: (8) Sleep apnea: (9) Diabetes mellitus: (10) CAD (coronary artery disease): (11) BPH (benign prostatic hyperplasia): (12) Ambulatory dysfunction: (13) Knee pain: (14) Metabolic encephalopathy: (15) DVT prophylaxis: Supervising Physician Co-Signing Physician Notes Dr. Espinal was resident physician during care of patient. I separately evaluated patient for henry portions of the history and the exam. I was present during the critical portion of medical decision making, and I discussed the case with the resident. I generally agree with the findings and plan. Transferred to ICU for ultrasound-guided IV access and monitoring of abdominal hemorrhage secondary to postprocedural PEG. We have held additional antiplatelet therapy and are holding DVT prophylaxis (chemical) as well as any form of anticoagulation at this time. He has received 2 units packed red blood cells. General surgery is consulted however the patient continues to hemorrhage he would likely need transfer for interventional radiology. I have personally spent 35 minutes of critical care time in the direct management of this patient. This is a life/limb threatening event. This includes time spent evaluating patient, direct bedside care, chart review, placing orders, interpretation of diagnostic studies, discussion with consultants, patient, and/or family members regarding treatment decisions, as well as other required patient management activities. This time is exclusive of all separately billable procedures, and teaching time and separate from and in addition to any other critical care service time. History of Present Illness Reason for Consultation: Hemoperitoneum Requesting Physician: Dr. Deleon Attending Physician: Luis Deleon History of Present Illness Mr. Lassiter is a 74 year old male with a past medical history of CAD, diabetes mellitus, COPD, PE diagnosed in Nov 2019 and HEYDI who was transferred to the ICU due to abdominal hemoperitoneum. Mr. Lassiter was admitted to [facility] on 12/12/2019 due to a left sided facial droop, dysarthria and dysphagia. He was also found to be in new onset atrial fibrillation. He did convert back to sinus rhythm while in the ER. An MRI of his brain confirmed an acute infarct in the right caudate body, and multiple prior infarcts. A heparin drip was initiated on 12/13/2019 for his paroxsymal afib. A repeat head CT on 12/15/2019 did not show a hemorrhagic conversion of his stroke. He underwent PEG tube placement on 12/16/2019 for dysphagia, and experienced severe abdominal pain today. He was found to have "moderate hemoperitoneum within the abdomen and pelvis and an 11.5 x 9.9 x 5.1 cm extraperitoneal hematoma of the left anterior abdominal wall." He was ordered 2 units of blood. Due to the fact that he became tachycardic and hypotensive, the decision was made to transfer him to the ICU for a higher level of care. Of note, with regards to his prior PE, this was found incidentally in November 2019. He was treated with Xarelto, however stopped this medication after several days due to new onset hematuria. Allergies Allergy/AdvReac Type Severity Reaction Status Date / Time fluticasone Allergy Mild Hives Verified 12/12/19 18:07 salmeterol Allergy Mild Hives Verified 12/12/19 18:07 Home Medications Home Medications Medication Instructions Recorded Confirmed Type albuterol sulfate 90 mcg/actuation 2 puffs INHALATION Q4H #18 gm 07/31/19 12/12/19 Rx aerosol inhaler fluticasone furoate 100 1 inh INH DAILY #1 inhaler 07/31/19 12/12/19 Rx mcg-vilanterol 25 mcg/dose inhalation powder nebulizers #1 ea 07/31/19 12/09/19 Rx tamsulosin 0.4 mg capsule 0.4 mg PO DAILY #90 cap 10/13/19 12/12/19 Rx sildenafil (pulm.hypertension) 20 20 - 100 mg PO ONCE PRN #90 tab 11/09/19 12/12/19 Rx mg tablet aspirin 81 mg tablet,delayed 81 mg PO DAILY 12/09/19 12/12/19 History release Patient History Medical History Arthritis Bronchitis CAD (coronary artery disease) (Chronic) COPD (chronic obstructive pulmonary disease) (Chronic) COPD (chronic obstructive pulmonary disease) Diabetes mellitus (Chronic) Elevated PSA Sleep apnea (Chronic) 09/14/2014- Urinary incontinence Surgical History H/O knee surgery History of cardiac catheterization 05/01/2010-PCI of OM 2 with CAROLINE Family History Mother Heart disease Hypertension Denies family history of Ovarian cancer Prostate cancer Breast cancer Lung cancer Colorectal cancer Social History Preferred Language: Afghan Communication Ability: Effective Visual Impairment: No Limitations Hearing Ability: Use of Hearing Aid Community Engagement Manager Required: No Beliefs That Will Affect Care: None marital status: / Current Living Situation: Alone Current Living Situation Comment: with significant other. Son yemi lives within a few minutes current occupational status: retired Feels Safe at Home: Yes Smoking Status: Former smoker Tobacco Type: cigarettes and smokeless tobacco ; Age Started Using Tobacco: 15 ; Age Quit Using Tobacco: 30 ; packs per day: 2 ; Number of Years Since Quit: 44 ; Second Hand Exposure: Yes ; Hx Alcohol Use: Yes Alcohol type: beer Hx Substance Use: No Diet Comment: regular caffeine: Yes during the past year weight has: decreased > 10 lbs Dental Care, Regularly: Yes Physical Activity Frequency: Does not Exercise Seatbelt Use: always Sunscreen Use: No Review of Systems Constitutional: + fatigue; no fever and no chills Respiratory: no cough and no dyspnea Cardiovascular: no chest pain Physical Exam Constitutional: well developed and well nourished + pale + fatigued, falls asleep between questions Eyes: PERRL, conjunctivae normal, anicteric sclerae Respiratory: normal respiratory effort, lungs clear to auscultation Cardiovascular: Rate/Rhythm: regular rhythm and + tachycardic Extremities: normal capillary refill; no calf tenderness and no pedal edema Gastrointestinal (Abdomen): + dressing in place over PEG tube + abdomen distended, tender throughout Skin: + ecchymoses to left upper chest and left arm Neurologic: PERRL, EOMI, accommodation nl, no face palsy, no dysarthria + 4/5 power of LUE and LLE, 5/5 power with RUE and RLE Coordination intact Psychiatric: A+Ox3, euthymic affect Results & Data Vital Signs (Past 12 Hours) Vital Signs Temp Pulse Pulse Pulse Pulse Resp BP 12/17/19 18:08 97 H 12/17/19 17:58 98 H 12/17/19 17:45 102 H 12/17/19 17:27 111 H 12/17/19 17:23 89 12/17/19 17:07 89 12/17/19 16:38 36.5 C 85 19 12/17/19 15:13 106 H 16 12/17/19 15:02 36.8 C 90 20 12/17/19 14:19 83 12/17/19 11:42 36.3 C L 79 18 128/76 12/17/19 11:09 67 18 12/17/19 08:00 71 12/17/19 06:59 72 18 12/17/19 06:57 37.2 C 71 19 BP Pulse Ox 12/17/19 18:08 109/71 100 12/17/19 17:58 127/66 12/17/19 17:45 117/72 96 12/17/19 17:27 101/56 L 96 12/17/19 17:23 101/56 L 12/17/19 17:07 121/67 12/17/19 16:38 134/73 94 12/17/19 15:13 98 12/17/19 15:02 104/66 96 12/17/19 14:19 12/17/19 11:42 95 12/17/19 11:09 97 12/17/19 08:00 12/17/19 06:59 98 12/17/19 06:57 131/61 98 Resident Activity Tracking Resident Involvement: Resident Care Provided Care Provided: Adult Hospital Medicine (1) BPH (benign prostatic hyperplasia) Lower urinary tract symptom presence: symptoms absent Qualified Code(s): N40.0 - Benign prostatic hyperplasia without lower urinary tract symptoms (2) Sleep apnea Sleep apnea type: obstructive Qualified Code(s): G47.33 - Obstructive sleep apnea (adult) (pediatric) (3) Urinary incontinence Urinary Incontinence type: unspecified incontinence Qualified Code(s): R32 - Unspecified urinary incontinence (4) Diabetes mellitus Diabetes mellitus complication status: without complication Diabetes mellitus long term care phlebotomist insulin use: without longterm use Diabetes mellitus type: type 2 Qualified Code(s): E11.9 - Type 2 diabetes mellitus without complications (5) CAD (coronary artery disease) Associated angina: without angina Coronary Disease-Associated Artery/Lesion type: [place] artery [place] vs. transplanted heart: [place] heart Qualified Code(s): I25.10 - Atherosclerotic heart disease of [place] coronary artery without angina pectoris (6) COPD (chronic obstructive pulmonary disease) COPD type: COPD with acute exacerbation Qualified Code(s): J44.1 - Chronic obstructive pulmonary disease with (acute) exacerbation (7) Pulmonary embolism Pulmonary embolism type: single subsegmental (without acute cor pulmonale) Qualified Code(s): I26.93 - Single subsegmental pulmonary embolism without acute cor pulmonale
[2019-12-17] MEDS ORDERED: ICU PROTOCOL FOR HYPERGLYCEMIA PRN (19:12)
[2019-12-17] MEDS ORDERED: SODIUM CHLORIDE 0.9% 1000ML 1,000 ML IV ONE (19:20)
[2019-12-17 19:28] LABS: Hematocrit (blood only) 25.1 % (42-52); Hemoglobin 8.3 g/dL (14.0-18.0)
[2019-12-17 19:41] LABS: INR 1.1 (0.9-1.1); Partial Thromboplastin Ratio 1.1; Partial Thromboplastin Time 30.7 Seconds (21.0-31.0); Prothrombin Time 11.6 Seconds (9.0-12.0)
[2019-12-17] MEDS ORDERED: METOPROLOL TARTRATE 1 MG/ML VIAL IV PRN (20:01)
--- NOTE | 2019-12-17 21:34 | Surgery Consultation ---
Date of Consultation December 17, 2019 Assessment & Plan (1) Hemoperitoneum: The plan would be to normalize his coagulation profile Transfuse him as needed It appeared that he continued to bleed when of choice would be angiography and interventional radiology We have no idea of where he is specifically bleeding from although it appears to have come from the left preperitoneal space History of Present Illness Attending Physician: Luis Deleon History of Present Illness Asked to see the patient for hemoperitoneum and what appears to be getting into the preperitoneal space of the left rectus muscle Patient was anticoagulated or experiencing a stroke for which she was admitted to the hospital findings of new atrial fibrillation and acute right hemispheric infarction Is currently receiving 1 unit of blood for which he was ordered 3 units Allergies Allergy/AdvReac Type Severity Reaction Status Date / Time fluticasone Allergy Mild Hives Verified 12/12/19 18:07 salmeterol Allergy Mild Hives Verified 12/12/19 18:07 Home Medications Home Medications Medication Instructions Recorded Confirmed Type albuterol sulfate 90 mcg/actuation 2 puffs INHALATION Q4H #18 gm 07/31/19 12/12/19 Rx aerosol inhaler fluticasone furoate 100 1 inh INH DAILY #1 inhaler 07/31/19 12/12/19 Rx mcg-vilanterol 25 mcg/dose inhalation powder nebulizers #1 ea 07/31/19 12/09/19 Rx tamsulosin 0.4 mg capsule 0.4 mg PO DAILY #90 cap 10/13/19 12/12/19 Rx sildenafil (pulm.hypertension) 20 20 - 100 mg PO ONCE PRN #90 tab 11/09/19 12/12/19 Rx mg tablet aspirin 81 mg tablet,delayed 81 mg PO DAILY 12/09/19 12/12/19 History release Patient History Medical History Arthritis Bronchitis CAD (coronary artery disease) (Chronic) COPD (chronic obstructive pulmonary disease) (Chronic) COPD (chronic obstructive pulmonary disease) Diabetes mellitus (Chronic) Elevated PSA Sleep apnea (Chronic) 09/14/2014- Urinary incontinence Surgical History H/O knee surgery History of cardiac catheterization 05/01/2010-PCI of OM 2 with CAROLINE Family History Mother Heart disease Hypertension Denies family history of Ovarian cancer Prostate cancer Breast cancer Lung cancer Colorectal cancer Social History Preferred Language: [place] Communication Ability: Effective Visual Impairment: No Limitations Hearing Ability: Use of Hearing Aid Pin Puller Required: No Beliefs That Will Affect Care: None marital status: / Current Living Situation: Alone Current Living Situation Comment: with significant other. Son yemi lives within a few minutes current occupational status: retired Feels Safe at Home: Yes Smoking Status: Former smoker Tobacco Type: cigarettes and smokeless tobacco ; Age Started Using Tobacco: 15 ; Age Quit Using Tobacco: 30 ; packs per day: 2 ; Number of Years Since Quit: 44 ; Second Hand Exposure: Yes ; Hx Alcohol Use: Yes Alcohol type: beer Hx Substance Use: No Diet Comment: regular caffeine: Yes during the past year weight has: decreased > 10 lbs Dental Care, Regularly: Yes Physical Activity Frequency: Does not Exercise Seatbelt Use: always Sunscreen Use: No Physical Exam Physical Exam: Patient is an ill-appearing male His vital signs appear to be stabilizing Constitutional: + ill appearing Respiratory: normal respiratory effort; no respiratory distress Gastrointestinal (Abdomen): Inspection/Auscultation: + abdomen distended Skin: no rashes, warm and dry Neurologic: + focal motor deficit Results & Data Vital Signs (Past 12 Hours) Vital Signs Temp Pulse Pulse Pulse Pulse Resp BP 12/17/19 21:06 36.8 C 84 18 150/70 H 12/17/19 20:34 36.7 C 85 16 127/73 12/17/19 20:23 37.0 C 83 18 124/66 12/17/19 20:07 101 H 20 12/17/19 20:04 36.9 C 110 H 20 112/66 12/17/19 19:49 36.8 C 102 H 18 133/91 12/17/19 19:31 37.0 C 12/17/19 19:30 108 H 18 138/69 12/17/19 18:08 97 H 12/17/19 17:58 98 H 12/17/19 17:45 102 H 12/17/19 17:27 111 H 12/17/19 17:23 89 12/17/19 17:07 89 12/17/19 16:38 36.5 C 85 19 12/17/19 15:13 106 H 16 12/17/19 15:02 36.8 C 90 20 12/17/19 14:19 83 12/17/19 11:42 36.3 C L 79 18 12/17/19 11:09 67 18 BP BP Pulse Ox 12/17/19 21:06 100 12/17/19 20:34 98 12/17/19 20:23 97 12/17/19 20:07 95 12/17/19 20:04 97 12/17/19 19:49 98 12/17/19 19:31 12/17/19 19:30 92 12/17/19 18:08 109/71 100 12/17/19 17:58 127/66 12/17/19 17:45 117/72 96 12/17/19 17:27 101/56 L 96 12/17/19 17:23 101/56 L 12/17/19 17:07 121/67 12/17/19 16:38 134/73 94 12/17/19 15:13 98 12/17/19 15:02 104/66 96 12/17/19 14:19 12/17/19 11:42 128/76 95 12/17/19 11:09 97 I did review his CAT scan PG Care Time/CCT Total # of Minutes Spent Total Time Spent with Patient: Total time spent is greater than 50% in coordination of care (as documented) at patient's floor/unit and/or counseling patient: Coding Level of Care Code 14323 Initial Inpt Care Lvl 3 Diagnoses Hemoperitoneum K66.1
[2019-12-18] MEDS: INSULIN ASPART 100 UNITS/ML 3 ML PEN SC SCH ×2 (01:16→05:57)
[2019-12-18] MEDS: ALBUT/IPRATROP 3MG/0.5MG NEB 3 ML VIAL NEB SCH ×4 (02:35→15:10)
[2019-12-18 04:12] LABS: Hemoglobin 9.1 g/dL (14.0-18.0); Mean Corpuscular Hemoglobin 29.4 pg (25-34); Mean Corpuscular Volume 83.9 fL (80-100); Mean Platelet Volume 9.7 fL (7.4-10.4); Nucleated RBC # (auto) 0.09 K/uL (0-0); Nucleated RBC % (auto) 0.3 %; Platelet Count 276 K/uL (130-400); RDW Coefficient of Variation 14.5 % (11.5-14.5); RDW Standard Deviation 43.9 fL (36.4-46.3)
[2019-12-18 04:34] LABS: Albumin Level 2.7 gm/dl (3.4-5.0); BUN Creatinine Ratio 39.5 (10-20); Calcium 7.9 mg/dl (8.5-10.1); Est GFR (African American) 82.6; Est GFR (Non-African American) 71.2; Potassium 4.4 mmol/L (3.5-5.1)
[2019-12-18 04:38] LABS: Basophils # (auto) 0.02 K/uL (0-0.2); Basophils % (auto) 0.1 %; Eosinophils # (auto) 0.01 K/uL (0-0.5); Immature Granulocytes % (auto) 1.1 %; Lymphocytes # (auto) 2.07 K/uL (1.2-3.4); Lymphocytes % (auto) 7.6 %; Monocytes # (auto) 4.21 K/uL (0.11-0.59); Monocytes % (auto) 15.4 %; Neutrophils # (auto) 20.79 K/uL (1.4-6.5); Neutrophils % (auto) 75.8 %
[2019-12-18 04:39] LABS: Albumin Globulin Ratio 1.2 (0.9-2); Bilirubin,Total 1.5 mg/dl (0.2-1); Globulin 2.3 gm/dl (2.5-4.0)
[2019-12-18 05:41] LABS: Fibrinogen 231 mg/dl (184-400); INR 1.3 (0.9-1.1); Partial Thromboplastin Ratio 1.3; Partial Thromboplastin Time 36.2 Seconds (21.0-31.0); Prothrombin Time 12.7 Seconds (9.0-12.0)
[2019-12-18] MEDS: methylPREDNISolone 20 MG in SYRINGE 0 ML IV SCH (05:57)
--- NOTE | 2019-12-18 06:41 | Surgery Progress Note ---
Date of Service December 18, 2019 Assessment & Plan (1) Hemoperitoneum: Is more stable and yesterday His spontaneous hemorrhage appears to be from the preperitoneal space on the left side with some extension into the abdomen counting for the fluid around the liver Surgical intervention will be quite hazardous and we would unlikely find a bleeding point If there is concern for continued ongoing bleeding would require transfer with angiography and interventional radiology Results & Data Vital Signs (Past 12 Hours) Vital Signs Temp Pulse Pulse Resp BP BP Pulse Ox 12/18/19 06:00 112 H 18 114/69 100 12/18/19 05:00 100 H 20 104/72 100 12/18/19 04:00 110 H 22 137/86 99 12/18/19 03:00 107 H 16 140/71 99 12/18/19 02:37 36.8 C 119 H 20 145/87 H 95 12/18/19 02:35 101 H 18 99 12/18/19 00:16 36.7 C 103 H 20 157/86 H 95 12/18/19 00:00 103 H 12/17/19 23:16 37.0 C 90 20 117/69 98 12/17/19 22:46 36.9 C 98 H 18 121/76 98 12/17/19 22:42 117 H 18 98 12/17/19 22:31 37.1 C 104 H 20 145/80 H 99 12/17/19 22:20 113 H 18 96 12/17/19 22:15 36.7 C 110 H 18 125/65 98 12/17/19 21:57 36.9 C 110 H 18 147/79 H 100 12/17/19 21:34 37.0 C 98 H 18 129/67 100 12/17/19 21:06 36.8 C 84 18 150/70 H 100 12/17/19 20:34 36.7 C 85 16 127/73 98 12/17/19 20:23 37.0 C 83 18 124/66 97 12/17/19 20:07 101 H 20 95 12/17/19 20:04 36.9 C 110 H 20 112/66 97 12/17/19 19:49 36.8 C 102 H 18 133/91 98 12/17/19 19:31 37.0 C 12/17/19 19:30 108 H 18 138/69 92 PG Care Time/CCT Total # of Minutes Spent Total Time Spent with Patient: Total time spent is greater than 50% in coordination of care (as documented) at patient's floor/unit and/or counseling patient: Coding Level of Care Code None Diagnoses Hemoperitoneum K66.1
--- NOTE | 2019-12-18 07:32 | Critical Care Progress Note ---
Date of Service December 18, 2019 Assessment & Plan (1) Admitted to intensive care unit: Reason Critically Ill: Mr. Lassiter is a 74 year old male with a past medical history of CAD, diabetes mellitus, COPD, PE diagnosed in Nov 2019 and HEYDI who was transferred to the ICU due to a hemoperitoneum. He requires close hemodynamic monitoring. He will be transferred to [facility] on 12/18/2019 due to worsening hemoperitoneum and need for IR intervention. 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 -thought to be secondary to afib -neurology following Cardiac: Atrial fibrillation -new onset, paroxsymal -hold p.o. Lopressor given concern for ongoing bleeding -anticoagulation contraindicated -ECHO w/normal LV size and hyperdynamic systolic fx - EF of 70% CAD -s/p PCI w/CAROLINE in 2009 -hold ASA and plavix -no chest pain reported Respiratory: COPD -intermittently wheezing -continue solumedrol for possible COPD exacerbation -supplemental O2 as needed -continue home inhalers PE -diagnosed in Nov 2019 -not on anticoagulation due to hx of hematuria on Xarelto GI: Hemoperitoneum -CT abdomen and pelvis - "Moderate hemoperitoneum within the abdomen and pelvis and an 11.5 x 9.9 x 5.1 cm extraperitoneal hematoma of the left anterior abdominal wall." -heparin drip OFF -Repeat CT scan on 12/18/2019 revealed "Increase in moderate to large hemoperitoneum and increase in size of a large extraperitoneal hematoma of the left anterior abdominal wall since CT of December 17, 2019." -this requires emergent transfer to [facility] for IR intervention -s/p 2 units of prbcs on 12/17/2019 -will receive 2 units of FFP prior to transfer GI prophylaxis: IV Zantac q8h NPO - seen by speech and not safe to take p.o. GI following, PEG tube in place - tube feedings currently held RENAL/LYTES: Creatinine 1.03 Monitor electrolytes : Condom catheter in place Monitor I/Os BPH -hold tamsulosin ENDO: Hx of DM2 -HbA1c 6.1% -ICU hyperglycemic protocol ordered TSH 1.54 HEME: Acute blood loss anemia -secondary to hemoperitoneum -s/p 2 units of blood on 12/17/2019 -Hgb 8.5 this AM -maintenance IVF ordered R leg hematoma -ecchymoses noted to posterior right leg -PT and DP pulses present -arterial and venous dopplers negative -monitor for compartment syndrome ID: No infectious process present LINES/IV ACCESS: PIV x 1, US guided IV x1. Central line placed. CODE STATUS: DNR/DNIn DVT PROPHYLAXIS: SCDs, Chemoprophylaxis contraindicated in the setting of active bleeding. Thank you for allowing us to participate in the care of this patient. Please refer to my attending physician's documentation for any further recommendations. (2) Oropharyngeal dysphagia: (3) Acute ischemic stroke: (4) COPD (chronic obstructive pulmonary disease): (5) Paroxysmal atrial fibrillation: (6) Pulmonary embolism: (7) Urinary incontinence: (8) Sleep apnea: (9) Diabetes mellitus: (10) CAD (coronary artery disease): (11) BPH (benign prostatic hyperplasia): (12) Ambulatory dysfunction: (13) Knee pain: (14) Metabolic encephalopathy: (15) DVT prophylaxis: Admission and Anticipated Discharge Date Admission Date: December 12, 2019 Supervising Physician Co-Signing Physician Notes Dr. Espinal was resident physician during care of patient. I separately evaluated patient for henry portions of the history and the exam. I was present during the critical portion of medical decision making, and I discussed the case with the resident. I generally agree with the findings and plan. Patient was discussed in multidisciplinary rounds. Patient had increasing abdominal distention and H&H has mildly dropped. Repeated CAT scan given increasing pain and abdominal distention, I was notified by radiology of increasing intra-peritoneal/intra-abdominal blood. I believe the patient has a coagulopathy induced by Plavix partially contributed to with heparin use, the antiplatelet medication was for recent stroke most likely cardioembolic in nature. We have held his anticoagulants and antiplatelet medications. At this time he is transfused an additional 2 units packed red blood cells as well as 2 units of FFP. Am giving the patient 1 g of tranexamic acid. I discussed the case with [facility] Dr. Workman who is accepting the patient in transfer for for evaluation for possible IR guided embolectomy if the PEG tube has necked a superior epigastric vessel. He has tenuous venous access and recently lost a peripheral IV, therefore we are putting in central venous access. I have updated the patient's son as well as also clarified CODE STATUS. The patient is DNR in event of cardiac arrest. He is agreeable to intubation for respiratory insufficiency if the underlying problem was reversible. At this time he is slated for transfer to [facility] for postprocedural hemorrhage and need for interventional radiology evaluation. Subjective Mr. Lassiter reports he feels about the same as yesterday. He reports continued abdominal pain and pain in his right leg. He notes that he had several bowel movements overnight, none with the presence of blood. Of note, Mr. Lassiter became acutely confused overnight and required the presence of a 1:1 sitter. He is alert, oriented and calm this morning. Review of Systems Constitutional: + fatigue; no fever and no chills Cardiovascular: no chest pain Gastrointestinal: + abdominal pain; no blood in stools Musculoskeletal: right leg pain Physical Exam Constitutional: WD/WN, vitals as above + fatigued Respiratory: Auscultation: lungs clear to auscultation bilaterally and + wheezes (occasional wheezing) Cardiovascular: Rate/Rhythm: + tachycardic; + abnormal rhythm Heart Sounds: no murmur Vessels: posterior tibial pulses present and dorsalis pedis pulses present Gastrointestinal (Abdomen): Inspection/Auscultation: + abdomen distended + PEG tube with dressing over top Skin: ecchymoses noted to right posterior calf. DP and PT pulses intact. TTP. Results & Data ([facility]) Vital Signs (Past 12 Hours) Vital Signs Temp Pulse Pulse Pulse Resp BP BP 12/18/19 07:28 114 H 16 12/18/19 06:00 112 H 18 114/69 12/18/19 05:00 100 H 20 104/72 12/18/19 04:00 110 H 22 137/86 12/18/19 03:00 107 H 16 140/71 12/18/19 02:37 36.8 C 119 H 20 145/87 H 12/18/19 02:35 101 H 18 12/18/19 00:16 36.7 C 103 H 20 157/86 H 12/18/19 00:00 103 H 12/17/19 23:16 37.0 C 90 20 117/69 12/17/19 22:46 36.9 C 98 H 18 121/76 12/17/19 22:42 117 H 18 12/17/19 22:31 37.1 C 104 H 20 145/80 H 12/17/19 22:20 113 H 18 12/17/19 22:15 36.7 C 110 H 18 125/65 12/17/19 21:57 36.9 C 110 H 18 147/79 H 12/17/19 21:34 37.0 C 98 H 18 129/67 12/17/19 21:06 36.8 C 84 18 150/70 H 12/17/19 20:34 36.7 C 85 16 127/73 12/17/19 20:23 37.0 C 83 18 124/66 12/17/19 20:07 101 H 20 12/17/19 20:04 36.9 C 110 H 20 112/66 12/17/19 19:49 36.8 C 102 H 18 133/91 12/17/19 19:31 37.0 C Pulse Ox 12/18/19 07:28 99 12/18/19 06:00 100 12/18/19 05:00 100 12/18/19 04:00 99 12/18/19 03:00 99 12/18/19 02:37 95 12/18/19 02:35 99 12/18/19 00:16 95 12/18/19 00:00 12/17/19 23:16 98 12/17/19 22:46 98 12/17/19 22:42 98 12/17/19 22:31 99 12/17/19 22:20 96 12/17/19 22:15 98 12/17/19 21:57 100 12/17/19 21:34 100 12/17/19 21:06 100 12/17/19 20:34 98 12/17/19 20:23 97 12/17/19 20:07 95 12/17/19 20:04 97 12/17/19 19:49 98 12/17/19 19:31 Critical Care Time Critical Care Time: Yes Total Critical Care Time: 85 I have personally spent 85 minutes of critical care time in the direct management of this patient. This is a life/limb threatening event. This includes time spent evaluating patient, direct bedside care, chart review, placing orders, interpretation of diagnostic studies, discussion with consultants, patient, and/or family members regarding treatment decisions, as well as other required patient management activities. This time is exclusive of all separately billable procedures, and teaching time and separate from and in addition to any other critical care service time. Resident Activity Tracking Resident Involvement: Resident Care Provided Care Provided: Adult Hospital Medicine (1) BPH (benign prostatic hyperplasia) Lower urinary tract symptom presence: symptoms absent Qualified Code(s): N40.0 - Benign prostatic hyperplasia without lower urinary tract symptoms (2) Sleep apnea Sleep apnea type: obstructive Qualified Code(s): G47.33 - Obstructive sleep apnea (adult) (pediatric) (3) Urinary incontinence Urinary Incontinence type: unspecified incontinence Qualified Code(s): R32 - Unspecified urinary incontinence (4) Diabetes mellitus Diabetes mellitus complication status: without complication Diabetes mellitus chcf insulin use: without intermission coordinator use Diabetes mellitus type: type 2 Qualified Code(s): E11.9 - Type 2 diabetes mellitus without complications (5) CAD (coronary artery disease) Associated angina: without angina Coronary Disease-Associated Artery/Lesion type: [place] artery [place] vs. transplanted heart: [place] heart Qualified Code(s): I25.10 - Atherosclerotic heart disease of [place] coronary artery without angina pectoris (6) COPD (chronic obstructive pulmonary disease) COPD type: COPD with acute exacerbation Qualified Code(s): J44.1 - Chronic obstructive pulmonary disease with (acute) exacerbation (7) Pulmonary embolism Pulmonary embolism type: single subsegmental (without acute cor pulmonale) Qualified Code(s): I26.93 - Single subsegmental pulmonary embolism without acute cor pulmonale
[2019-12-18] MEDS: POLYETHYLENE (MIRALAX) 17 GM PACK PEG SCH (08:13)
[2019-12-18] MEDS: FLUTICASONE/VILANTEROL 100/25MCG 14 PUFFS/INHALER INH SCH (08:14)
[2019-12-18] MEDS: DICLOFENAC SOD 1% GEL 100 GM TUBE EXT SCH ×2 (08:14→12:04)
[2019-12-18] MEDS: INSULIN GLARGINE SOLOSTAR 100 UNITS/ML 3 ML PEN SC SCH (08:15)
[2019-12-18 10:04] LABS: Hematocrit (blood only) 24.9 % (42-52); Hemoglobin 8.5 g/dL (14.0-18.0)
--- NOTE | 2019-12-18 10:05 | Gastroenterology Progress Note ---
Date of Service December 18, 2019 Assessment & Plan (1) Hemoperitoneum: H/H 9.1/26.0. No ecchymosis noted. Anticoagulation held at present. Continue to monitor H/H as well as for clinical signs/symptoms of worsening bleeding; If patient bleeds again, consider transfer for interventional ra diology services. Thank you for allowing us to participate in the care of this patient. If you should have any further questions or concerns, do not hesitate to contact us at extension [phone] or [phone]. Present on Admission?: No (2) Oropharyngeal dysphagia: s/p CVA. Functioning PEG in place without bleeding at site. Present on Admission?: Yes Admission and Anticipated Discharge Date Admission Date: December 12, 2019 Supervising Physician Co-Signing Physician Notes Agree with PAUL Jose as above Abd: Soft, Tender throughout, Distended Continue current therapy and supportive care Continue to hold Heparin and Plavix secondary to peritoneal bleed Patient has had multiple BM's overnight. Subjective Patient is a 74 yo male s/p embolic CVA 2/ afib who underwent a PEG placement on 12/16/2019 due to severe dysphagia as a result of his recent CVA. His heparin was held for >8 hours prior to restarting after the procedure on 12/16/19. His Plavix was resumed on 12/17/2019. No issues with tube feeds/residual, however patient began experiencing abdominal pain on 12/17. CT imaging showed an intraperitoneal bleed. Anticoagulation is presently held. Patient is in the ICU. He has no abdominal ecchymosis. His H/H is 9.1/26.0 at present. BP stable at 124/73. T 36.4. Saturating 95% on 2 L NC. His HR was between 115-120 during my visit but did not appear to be in Afib. He is lethargic. Son is at bedside. Review of Systems Constitutional: + fatigue Respiratory: no cough Cardiovascular: no chest pain Gastrointestinal: some abdominal pressure Neurologic: + generalized weakness Physical Exam Constitutional: WD/WN, vitals as above Neck: normal visual inspection Respiratory: normal respiratory effort, lungs clear to auscultation Cardiovascular: Rate/Rhythm: regular rhythm and + tachycardic Gastrointestinal (Abdomen): Inspection/Auscultation: no abdominal wall ecchymosis and no abdominal edema Percussion/Palpation: + abdomen tender unremarkable PEG site Musculoskeletal: no cyanosis or clubbing Skin: no rashes, warm and dry Psychiatric: Orientation: alert Results & Data ([facility]) Vital Signs (Past 12 Hours) Vital Signs Temp Pulse Pulse Pulse Resp BP BP 12/18/19 08:00 36.4 C L 122 H 18 124/73 12/18/19 07:28 114 H 16 12/18/19 06:00 112 H 18 114/69 12/18/19 05:00 100 H 20 104/72 12/18/19 04:00 110 H 22 137/86 12/18/19 03:00 107 H 16 140/71 12/18/19 02:37 36.8 C 119 H 20 145/87 H 12/18/19 02:35 101 H 18 12/18/19 00:16 36.7 C 103 H 20 157/86 H 12/18/19 00:00 103 H 12/17/19 23:16 37.0 C 90 20 117/69 12/17/19 22:46 36.9 C 98 H 18 121/76 12/17/19 22:42 117 H 18 12/17/19 22:31 37.1 C 104 H 20 145/80 H 12/17/19 22:20 113 H 18 12/17/19 22:15 36.7 C 110 H 18 125/65 12/17/19 21:57 36.9 C 110 H 18 147/79 H Pulse Ox 12/18/19 08:00 95 12/18/19 07:28 99 12/18/19 06:00 100 12/18/19 05:00 100 12/18/19 04:00 99 12/18/19 03:00 99 12/18/19 02:37 95 12/18/19 02:35 99 12/18/19 00:16 95 12/18/19 00:00 12/17/19 23:16 98 12/17/19 22:46 98 12/17/19 22:42 98 12/17/19 22:31 99 12/17/19 22:20 96 12/17/19 22:15 98 12/17/19 21:57 100 PG Care Time/CCT Total # of Minutes Spent Total Time Spent with Patient: Total time spent is greater than 50% in coordination of care (as documented) at patient's floor/unit and/or counseling patient: Coding Level of Care Code 24090 Subseq Hosp Care Lvl 2 Diagnoses Hemoperitoneum K66.1 Oropharyngeal dysphagia R13.12
[2019-12-18] MEDS ORDERED: PHARMACY GLYCEMIC MGMT CONSULT PRN (11:09)
[2019-12-18] MEDS ORDERED: INSULIN GLARGINE SOLOSTAR 100 UNITS/ML 3 ML PEN SC ONE (11:45)
--- NOTE | 2019-12-18 11:49 | Pharmacy Report ---
Glycemic Control Consultation - Date of Service December 18, 2019 - Scope Scope: Glycemic Pharmacist consulted for glycemic control and to write orders per [facility] inpatient glycemic control protocol - Objective Weight: 108.2 kg Accuchecks BSG (last 24hrs): 12/17/19 12/17/19 12/17/19 15:56 16:36 20:51 Glucose 184 H POC Glucose 187 H 150 H 12/18/19 12/18/19 12/18/19 01:09 04:03 05:40 Glucose 160 H POC Glucose 160 H 183 H 12/18/19 12/18/19 08:14 11:17 Glucose POC Glucose 208 H 211 H Laboratory Data (last 24hrs): 12/17/19 12/18/19 16:36 04:03 Potassium 4.4 4.4 Carbon Dioxide 26 25 Anion Gap 6.0 6.0 Creatinine 1.07 1.03 Est Cr Clr Drug Dosing 73.6 78.0 HbA1c: Hemoglobin A1c 6.1 % (4.5-5.6) H 12/13/19 04:26 - Recent Pertinent Medications Outpatient Anti-diabetic Regimen: * None * A1c = 6.1 % on 12/13/19 The patient is currently receiving: * Basal insulin: Lantus 10 units every qw hours * Correctional Insulin: Novolog Correction per scale ACHS Goal Range: Low 120 mg/dL - High 160 mg/dL Correction Factor: 30 mg/dL/unit Risk Factors for Insulin Resistance: * Steroids: methylprednisolone tapered to 20 mg IV q12h starting 2 PM * Diet: Peptamen VHP on hold - Assessment & Plan Assessment & Plan: ASSESSMENT: * 74 yo M with admitted for CVA and new-onset Afib with hospital course complicated by hemoperitoneum. No surgical intervention planned at this time per surgery note. * History of T2DM with HbA1c currently suggestive of pre-diabetes (not maintai sukhi on any outpatient antihyperglycemic medications) * BSG's elevated, likely steroid induced. * Will cautiously increase Lantus * Will increase Novolog frequency, tighten correction factor, and add in CHO ratio in the event that CHO intake/administration is resumed PLAN FOR INPATIENT GLYCEMIC CONTROL: * Basal insulin: additional Lantus 8 units SQ x1 now then ongoing BID based on BSG * 5 units for BSG less than 140 mg/dL * 10 units for BSG 140-180 mg/dL * 15 units for BSG greater than 180 mg/dL * Bolus insulin * NovoLog per scale ACHS or Q6hrs while NPO * Goal Range: Low 120 mg/dL - High 160 mg/dL * Correction Factor: 20 mg/dL/unit * Nutritional / Prandial insulin per carb ratio of 1 unit per 7 grams CHO consumed * Please note that the plan above was derived based on current level of insulin resistance and hospital stress. These recommendations are appropriate for inpatient admission only. Plan of care upon discharge will need to be reassessed to avoid potential outpatient hypo/hyperglycemia. Thank you.
--- NOTE | 2019-12-18 11:51 | Ultrasound Report ---
US venous doppler LE RT HISTORY: 74 years-old Male LE swelling chronic pain and swelling of the right lower extremity COMPARISON: None TECHNIQUE: Multiple real-time sonographic images of the right lower extremity deep venous structures were obtained assessing grayscale appearance, color and spectral flow FINDINGS: Normal flow, compressibility, phasicity and augmentation of the right lower extremity venous structur es. IMPRESSION: No sonographic evidence of deep venous thrombosis. ACT 112: Negative or not required by law. The above report was generated using voice recognition software. It may contain grammatical, syntax o r spelling errors. Electronically signed by: Donell Clemons M.D. 12/18/2019 11:50 AM
--- NOTE | 2019-12-18 11:52 | Ultrasound Report ---
US arterial duplex LE RT HISTORY: 74 years-old Male LE swelling, afib acute pain of right lower extremity. History of atrial fibrillation COMPARISON: None TECHNIQUE: Multiple real-time sonographic images of the right lower extremity arterial structures wer e obtained assessing grayscale appearance, color and spectral flow FINDINGS: Triphasic waveforms are noted throughout the right lower extremity arterial structures. No arterial o cclusion or elevated peak systolic velocities to suggest high-grade stenosis. IMPRESSION: Unremarkable arterial ultrasound of the right lower extremity. ACT 112: Negative or not required by law. The above report was generated using voice recognition software. It may contain grammatical, syntax o r spelling errors. Electronically signed by: Donell Clemons M.D. 12/18/2019 11:51 AM
[2019-12-18] MEDS ORDERED: INSULIN ASPART 100 UNITS/ML 3 ML PEN SC SCH (12:00)
[2019-12-18] MEDS ORDERED: SODIUM CHLORIDE 0.9% 250 ML IV PRN (12:37)
[2019-12-18] MEDS ORDERED: MoRPHine SULFATE 2 MG/ML CARP IV STA ×2 (12:43→14:14)
[2019-12-18] MEDS ORDERED: TRANEXAMIC ACID 1,000 MG in 0.9 % SODIUM CHLORIDE 100 ML IV ONE (12:45)
--- NOTE | 2019-12-18 12:46 | CT Scan Report ---
CT OF THE ABDOMEN AND PELVIS WITHOUT CONTRAST CLINICAL HISTORY: re-evaluate bleed COMPARISON STUDY: CT of the abdomen and pelvis December 17, 2019. TECHNIQUE: Axial images of the abdomen and pelvis were obtained without IV contrast. Images were revi ewed in the axial, sagittal, and coronal planes. Automated exposure control was utilized for the dheeraj dy. A dose lowering technique was utilized adhering to the principles of ALARA. FINDINGS: Imaged portions of the lower chest demonstrate small right and trace left pleural effusions with associated airspace opacity suggestive of atelectasis. A small amount of pneumoperitoneum is no rose. PEG is appropriately positioned. Moderate to large hemoperitoneum within the abdomen and pelvis has moderately increased since CT of December 17, 2019. Hemorrhage adjacent to the stomach is noted. A large extraperitoneal hematoma of the left anterior abdominal wall, deep to the rectus sheath has i ncreased in size since CT of December 17, 2019. It now measures 15 x 12.4 x 7.5 cm. It previously deloris sured 11.5 x 9.9 x 5.1 cm. This contains a hematocrit level. Hemorrhage within the left paracolic gut ter is noted. A [place] balloon is present within the bladder. Heterogeneous enhancement of the kidneys is noted. This suggests delayed nephrogram. There is no evidence for a bowel obstruction. No pneumat osis or portal venous gas is present. No suspicious osseous lesions are noted. IMPRESSION: 1. Increase in moderate to large hemoperitoneum and increase in size of a large extraperitoneal hemat júnior of the left anterior abdominal wall since CT of December 17, 2019. Findings discussed with Dr. Maritza calhoun at time of dictation. 2. Small amount of pneumoperitoneum which is not unexpected following recent PEG placement. ACT 112: Negative or not required by law. Electronically signed by: Del Soler M.D. 12/18/2019 12:44 PM
--- NOTE | 2019-12-18 13:27 | Discharge Summary ---
Date of Service date of admission - December 12, 2019 date of discharge - December 18, 2019 Admission HPI Per Admitting Provider Kei Lassiter is a 74 year old male with a complex recent history culminating in stroke-like symptoms of left facial droop and dysarthria. His stroke-like sympt oms started yesterday around 9pm. In hindsight he was having slurring speech and difficulty swallow (keeping food in mouth for a long time and producing a lot more phlegm throughout the day). His speech in the morning was normal. His partner felt he was just getting tired at the time as he had been all week. This morning his speech had returned to normal and he had no problems swallowing breakfast. His partner left the house around 9:30am and came back around 2pm at which time she noticed left facial droop and called EMS. He was again having slurred speech at that time. Telestroke call was placed in ER and since he was outside the time for tPA management here was decided. He has also had less definitive symptoms throughout the week related to falls. Since Dec 07 he started coughing more and having chills - since then he has been living with his partner. Worried about another PNA (he was septic with PNA in Aug) they went to [facility] on and felt he was dehydrated but no definitive PNA on CXR. His first fall was the same night on . His partner felt because it was an exhausting day of seeing the doctor and having CXR - she just felt he had been warn out. That night around 3am Kei tried to get out of bed to go to the bathroom and his legs gave out (both, not one-sided). He didn't call for his partner and tried to get up himself spending around 45 minutes on the floor. Once found his partner called EMS lift assist to get him back up. The following day he was quite lethargic and was napping a lot during the day although this is not unusual for him (he has HEYDI and non-compliant with CPAP), his main issue was knee pain from the night before. night he fell again trying to get of bed and Saturday trying to het off the toilet. No LOC. No prodromal symptoms. Both legs feel equally weak. 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 Lower extremity doppler at this time was negative for DVT. Started on Xarelto . Stopped on Xarelto due to hematuria. Went to [facility] ER on Nov 30 and treated with keflex for presumed hemorrhagic cystitis (he didn't ever use this though). Hematuria lasted for about a week. CT A/P on showed no acute findings to explain heamturia. Lower lungs noted interval development of streaky slightly irregular but linear density in posterior aspect of the left lung base. With regards to his COPD - his partner reports he is worse in winter, main symptom is coughing Principal Diagnosis hemoperitoneum in setting of recent PEG tube placement Discharge Exam Constitutional + altered mental status (sleepy, but arouses and knows he is in the hospital ); no acute distress ENMT external ear and nose normal, oropharynx normal Mouth: + dry oral mucous membranes Respiratory no respiratory distress Auscultation: + diminished lung sounds (bases); no crackles and no wheezes Cardiovascular Rate/Rhythm: regular rhythm and + tachycardic Heart Sounds: normal S1 and normal S2; no murmur Vessels: posterior tibial pulses present and dorsalis pedis pulses present; no JVD Extremities: no edema Gastrointestinal (Abdomen) normal bowel sounds, soft, nontender, no hepatosplenomegaly Inspection/Auscultation: + abdomen distended (marked ); + abnormal bowel sounds (decreased ) and no abdominal wall ecchymosis Percussion/Palpation: + abdomen tender (multiple locations - mild ), + hernia (umbilical - reducible ) and + abdomen firm; no guarding, + abdomen not soft and no hepatosplenomegaly PEG tube site clean, intact Musculoskeletal mild right knee joint effusion; mild ecchymoses posterior right leg Skin + pallor Neurologic + focal motor deficit (did not assess today due to pt being sleepy from recent morphine ) Speech / Cognition: + abnormal speech (severe dysarthria) Motor/Sensory: no pronator drift Discharge Data Allergies Allergy/AdvReac Type Severity Reaction Status Date / Time fluticasone Allergy Mild Hives Verified 12/12/19 18:07 salmeterol Allergy Mild Hives Verified 12/12/19 18:07 Consultations 1. [facility] Neurology 2. [facility] Gastroenterology 3. [facility] General Surgery 4. [facility] 5. PT, OT 6. speech therapy Procedures Performed Operation Date: 12/16/19 08:20 Actual Procedures Esophagogastroduodenoscopy, Percutaneous Endoscopic Gastrotomy - Josiah Lisa. Case, DO With Peg Tube Placement - Josiah Lisa. Case, DO PRBCs x 2 units FFP Central line placement Ordered Studies 12/12/19 17:05 CT head/brain wo con Stat 12/12/19 17:14 CT angio head w con Stat CT angio neck with con Stat 12/12/19 18:09 MR brain wo/w con Stat 12/13/19 04:16 CT head/brain wo con Urgent 12/13/19 04:46 CT angio chest PE protocol Urgent 12/13/19 10:40 MR brain wo con Routine 12/15/19 17:01 CT head/brain wo con Routine 12/17/19 16:25 CT abd pelvis IV con only Urgent 12/18/19 10:39 US arterial duplex LE RT Stat US venous doppler LE RT Stat 12/18/19 12:09 CT Abd and Pelvis [CT abd pelvis wo con] Stat 12/18/19 13:10 US point of care ultrasound Routine Hospital Course (1) Hemoperitoneum: On the am of 12/17/2019 the patient developed abdominal distension. This worsened through the day on 12/17. Early afternoon 12/17 the patient was noted to have worsening overall status with tachycardia, development of pallor, low-normal BP, and worsening distension. STAT CT abd/pelvis showed a hemoperitoneum. This was felt 2nd to heparin infusion in setting of PEG tube placement that had been performed early in the afternoon of 12/16/2019. Of note - heparin infusion had been stopped 4 hours prior to PEG tube placement, and was resumed approximately 5-6 hours post-PEG placement. His PEG tube placement had been uncomplicated per report. The patient also had received 1 single dose of plavix on the AM of 12/17/2019 only. He had not been receiving aspirin or plavix prior to that due to NPO status. Upon discovery of the hemoperitoneum his heparin infusion was immediately stopped, saline bolus was given, and he was typed for multiple units of PRBCs 2 of which were given on the evening of 12/17. Lowest hemoglobin was 8.1 on the afternoon of 12/17, down from 10.8 earlier that day. Patient was transferred to the ICU and general surgery was consulted to follow. Serial H/H's were initiated. On the AM of 12/18 the patient complained of worsening abdominal pain and abdominal distension was modestly worse. Repeat CT of the abdomen showed worsening hemoperitoneum as well as worsening hematoma of the left abdominal wall. In light of the worsening hemoperitoneum it was felt that patient should transfer to tertiary care for potential IR-intervention to stop the intra- abdominal bleeding. A call was placed to Dr Sarwat Johnson of the critical care team at [facility] who graciously accepted patient in transfer to the ICU for ongoing care. Prior to transfer to [facility] the patient was given FFP and central line was placed. (2) Acute blood loss anemia: 2nd to hemoperitoneum. Tx 2 units PRBCs on 12/17/19. Tx 2 units of FFP on 12/18/19. Heparin infusion was stopped afternoon of 12/17/19. Again only 1 single dose of plavix was given on the AM of 12/17/19. He did not receive any further doses. Patient did not receive any recent PO or rectal aspirin. Discharge Hb was 8.5. Patient never required pressors during his ICU stay. (3) Abdominal distension: 2nd hemoperitoneum and abdominal wall hematoma. See discussion above. (4) Oropharyngeal dysphagia: 2nd to right caudate stroke. Seen by speech - not safe to take nutrition/meds by mouth. Thus, patient underwent s/p PEG tube placement by Dr Josiah Elena on 12/16/2019. See discussion above re: hemoperitoneum. (5) Acute ischemic stroke: MRI with right caudate stroke. Suspect cardioembolic due to a.fib which was a new diagnosis for him. When patient presented to [facility] on 12/12 he was in rate-controlled a.fib. Received PT/OT/speech therapy while here. Was walking a max of about 20 feet up until 12/17/19. Statin was advised in light of stroke. LDL 56, HDL 46 on recent lipid profile. Had been on heparin infusion for a.fib prior to PEG placement and then following PEG placement (heparin restarted nearly 6 hours post-PEG placement). Heparin was stopped when intra-abdominal bleeding was discovered. Plavix also stopped at that time. Systemic anticoagulation & plavix were both recommended by neurology for his old and current strokes. (6) COPD (chronic obstructive pulmonary disease): Numerous chest x-rays this admission without any infiltrates. He intermittently had significant wheezing w/ distress -- suspect he was microaspirating his secretions. Received nebs and IV steroids for COPD exacerbation. Wheezing was improved prior to discharge. (7) Paroxysmal atrial fibrillation: New onset. Converted to NSR in the [facility] ER just after admission. He was rate controlled without medication when he was in PAF. TSH WNL. ECHO with preserved EF and intact valve function. No PAF since ER presentation. Was on heparin infusion for a.fib -- now stopped due to hemoperitoneum. Tele had showed NSR since admission. (8) Pulmonary embolism: Pt diagnosed with an incidental, 3rd order PE in 11/2019 when he had undergone a CT scan of the chest for a respiratory illness. Started on xarelto in 11/2019 as an outpatient. Inital CTA was done at [facility] in [facility]. However he developed hematuria after several days of xarelto, by report, and this was stopped on 11/27/19. CTA this admission did NOT show PE. Significant other stated that dopplers of legs were done in 11/2019 at [facility] and were neg for DVT. Repeat dopplers of legs at [facility] were neg for DVT. Cause of PE?? It appears it was an unprovoked event. (9) Urinary incontinence: condom cath in place w/o hematuria at this time (10) Sleep apnea: Cont to encourage BiPAP at night although patient has been intolerant/noncompliant w/ CPAP at home (11) Diabetes mellitus: HbA1C 6.4 in August 2019. HbA1C 6.1% this admission. pre-DM. Received lantus/novolog while here. (12) CAD (coronary artery disease): 2009 - PCI to OM2 with CAROLINE, patient notes being stable for years. No chest pain or shortness of breath on exertion at home. Had not seen cardiology in some time - family requesting f/u with [facility] cardiology post-d/c. Received low-dose beta elias while here. Had been taking aspirin at home up until admission but did not receive aspirin while here. Troponins at [facility] were negative and echo showed intact EF with normal wall motion. (13) BPH (benign prostatic hyperplasia): alpha elias on hold while here (14) Ambulatory dysfunction: 2nd to OA of right knee along with stroke. Stroke was likely the main culprit in his walking issues prior to admission. (15) Knee pain: R knee xrays neg for acute fracture but considerable OA effusion present on exam but not suggestive of gout or pseudoout had been receiving voltaren gel to knee with improved pain (16) Metabolic encephalopathy: off/on while hospitalized [facility] w/o significant hypercarbia CT head 12/15 unchanged and without ICH likely hospital psychosis in setting of recent stroke Total Time Total Time Spent Total Time Spent (In Minutes): 45 Total Time Includes: Examination of the Patient, Discharge Planning, Medication Reconciliation and Communication With Other Providers Discharge Plan Discharge Items Patient Disposition: Transfer Acute Care Hospital Reason For Visit: STROKE-LIKE SYMPTOMS Discharge Diagnosis: 1. right caudate stroke 2. hemoperitoneum in setting of recent PEG tube placement for dysphagia 3. COPD 4. CAD Activity: As commented below Activity Comment: bedrest Non-emergency contact: Primary Care Provider and Specialist Call non-emergency contact if: you have any medication questions Follow-up/Referrals: Kimani Meier CRNP [Primary Care Provider] - Diet: Full liquid Addtl Attending Provider Instructions: to be determined after hospitalization at [facility] Pending Studies at Discharge: No Stand-Alone Forms: My [facility] Skilled Items Patient informed of condition?: Yes DNR: Yes Discharge Level of Care: Other Communicable Disease: No Discharge Prognosis: Other Lines: Peripheral IV Urinary Catheter: Yes Medications and DC Order Prescriptions: Continued (DME) nebulizers misc See Dose Instructions .ROUTE .MEDSUPPLY Qty: 1 RF: 0 albuterol sulfate 90 mcg/actuation HFA aerosol inhaler 2 puffs inhalation Q4H Qty: 18 RF: 5 Breo Ellipta 100-25 mcg/dose blister with device 1 inh INH DAILY Qty: 1 RF: 5 Discontinued sildenafil (pulm.hypertension) 20 mg tablet 20 - 100 mg PO ONCE PRN (Reason: sexual activity) Qty: 90 RF: 6 tamsulosin 0.4 mg capsule 0.4 mg PO DAILY Qty: 90 RF: 3 aspirin [Adult Low Dose Aspirin] 81 mg tablet,delayed release (DR/EC) 81 mg PO DAILY RF: 0 Discharge Orders: Discharge Order (Routine); Ordered 12/18/19 Ordered By: Luis Telles/Other Patient Handouts: A1C Admission Data Admit Date/Time: 12/12/19 19:36 Attending Provider: Luis Deleon Admit Provider: Luis Queen Primary Care Provider: Kimani Meier Other Providers: Laquita Mancilla ; Luis Queen ; Jorge Moulton ; Josiah Elena ; Luca Gonzales ; Jorge Medrano Coding Level of Care Code D/C Day Management >30 mins Diagnoses Hemoperitoneum K66.1 Acute blood loss anemia D62 Abdominal distension R14.0 Oropharyngeal dysphagia R13.12 Acute ischemic stroke I63.9 COPD (chronic obstructive pulmonary disease) J44.1 COPD type: COPD with acute exacerbation Paroxysmal atrial fibrillation I48.0 Pulmonary embolism I26.93 Pulmonary embolism type: single subsegmental (without acute cor pulmonale) Urinary incontinence R32 Urinary Incontinence type: unspecified incontinence Sleep apnea G47.33 Sleep apnea type: obstructive Diabetes mellitus E11.9 Diabetes mellitus complication status: without complication Diabetes mellitus ferry terminal agent insulin use: without ferry terminal agent use Diabetes mellitus type: type 2 CAD (coronary artery disease) I25.10 Associated angina: without angina Coronary Disease-Associated Artery/Lesion type: [place] artery [place] vs. transplanted heart: [place] heart BPH (benign prostatic hyperplasia) N40.0 Lower urinary tract symptom presence: symptoms absent Ambulatory dysfunction R26.2 Knee pain M25.569 Metabolic encephalopathy G93.41
[2019-12-18] MEDS ORDERED: STROKE PATIENT DISCHARGE STA (13:53)
--- NOTE | 2019-12-18 14:57 | Billing Data ---
Date of Service December 18, 2019 Coding Level of Care Code Critical Care ea addt'l 30 min Time Spent (min) 85 Comment I have personally spent 85 minutes of critical care time in the direct management of this patient. This is a life/limb threatening event. This includes time spent evaluating patient, direct bedside care, chart review, placing orders, interpretation of diagnostic studies, discussion with consultants, patient, and/or family members regarding treatment decisions, as well as other required patient management activities. This time is exclusive of all separately billable procedures, and teaching time and separate from and in addition to any other critical care service time.
--- NOTE | 2019-12-18 14:59 | Billing Data ---
Date of Service December 17, 2019 Coding Level of Care Code Critical Care 1st 30-74 mins Time Spent (min) 35
--- NOTE | 2019-12-18 15:24 | XRay Report ---
XR chest 1V portable HISTORY: 74 years-old Male central line placement status post placement of a right IJ central venous catheter COMPARISON: Chest radiograph 12/14/2019 TECHNIQUE: Semierect AP view of the chest FINDINGS: Right IJ central venous catheter has been placed, distal tip terminating in the expected location of the superior SVC. No postprocedural pneumothorax identified. Lungs are hypoinflated with bronchovascu lar crowding. Cardiac silhouette appears normal. Mild right hemidiaphragmatic elevation with mild anthony ear bibasilar atelectasis. Degenerative changes of the shoulders and spine. IMPRESSION: Status post placement of a right IJ central venous catheter, distal tip terminating in th e expected location of the superior SVC. No postprocedural pneumothorax identified. ACT 112: Negative or not required by law. The above report was generated using voice recognition software. It may contain grammatical, syntax o r spelling errors. Electronically signed by: Donell Clemons M.D. 12/18/2019 3:23 PM
--- NOTE | 2019-12-18 16:06 | Procedure Note ---
Procedure Note Date of Service December 18, 2019 Procedure date: Noted above Procedure: Central Line Placement Pre-procedure Diagnosis: Hemorrhage requiring emergent transfusion, poor IV access Post-procedure Diagnosis: same as above Informed Consent: The risks, benefits, indications, potential complications, and alternatives were explained to the patient and POA. The POA (son) consented. Attending Staff: Dr. Medrano Skin Prep: Chlorhexidine Anesthesia: 3 mL 1% lidocaine without epinephrine The identity of the patient was confirmed. Description of Procedure: The patient was placed in the Trendelenburg position. After sterile prep and sterile drape utilizing standard sterile technique, the superficial skin of the right neck was anesthetized. The R IJ vein was identified via dynamic ultrasound guidance. A triple lumen central line was introduced over a wire via the Seldinger technique, then sutured in place. Good blood flow was noted from all ports. A sterile dressing was then applied. A chest x-ray was ordered to confirm placement. Complications: None Estimated blood loss: Trace Patient tolerated the procedure well. Supervising Physician Co-Signing Physician Notes I was present and assisted with the entire procedure Coding
--- NOTE | 2019-12-18 16:26 | Electrocardiogram Report ---
Test Reason : Blood Pressure : / mmHG Vent. Rate : 114 BPM Atrial Rate : 114 BPM P-R Int : 166 ms QRS Dur : 130 ms QT Int : 380 ms P-R-T Axes : 034 085 009 degrees QTc Int : 523 ms Sinus tachycardia with runs of PAT Right bundle branch block Abnormal ECG When compared with ECG of 13-DEC-2019 04:31, [place] interval has decreased Confirmed by Odin Miranda ([id number]) on 12/18/2019 4:26:28 PM Referred By: REFERRED SELF Confirmed By:Odin Miranda
[2019-12-18] MEDS ORDERED: INSULIN GLARGINE SOLOSTAR 100 UNITS/ML 3 ML PEN SC SCH (21:00)
--- NOTE | 2019-12-19 09:21 | Billing Data ---
Date of Service December 18, 2019 Coding Level of Care Code 47[address] Stuart Initial H&P Comment Procedure 1: Central venous access non-tunneled catheter age greater than 5
== END 2019-12-18 16:00 | disposition short-term general hospital (02) | DRG 64 ==
LOC: ED 16:52 → 2S 19:36 → SUATTDRO 19:36 → 2S 20:47 → 1E 12-17 19:06

== ENCOUNTER 2019-12-26 16:37 | Inpatient (IN) ==
[2019-12-26] MEDS ORDERED: FUROSEMIDE 40 MG/4 ML VIAL IV STA (16:49)
--- NOTE | 2019-12-26 16:53 | XRay Report ---
XR chest 1V portable CLINICAL HISTORY: respiratory distress dyspnea COMPARISON STUDY: 12/18/2019 FINDINGS: Chronic elevation right hemidiaphragm. Platelike atelectasis both lung bases. Minimal upper lungs are clear. IMPRESSION: Platelike atelectasis both lung bases. Mild chronic elevation right hemidiaphragm. ACT 112: Negative or not required by law. The above report was generated using voice recognition software. It may contain grammatical, syntax or spelling errors. Electronically signed by: Alex Ndiaye M.D. 12/26/2019 4:52 PM
[2019-12-26 17:08] LABS: Oxygen Saturation VBG 84.6 %; pH VBG 7.44 (7.36-7.41)
[2019-12-26 17:16] LABS: Hematocrit (blood only) 33.1 % (42-52); Hemoglobin 10.8 g/dL (14.0-18.0); Mean Corpuscular Hgb Conc 32.6 g/dL (32-36); Mean Platelet Volume 10.4 fL (7.4-10.4); Platelet Count 335 K/uL (130-400); RDW Standard Deviation 54.5 fL (36.4-46.3); Red Blood Count 3.72 M/uL (4.7-6.1); White Blood Count 25.92 K/uL (4.8-10.8)
[2019-12-26 17:25] LABS: INR 1.2 (0.9-1.1); Prothrombin Time 12.5 Seconds (9.0-12.0)
[2019-12-26 17:34] LABS: Albumin Level 2.9 gm/dl (3.4-5.0); BUN Creatinine Ratio 35.3 (10-20); Calcium 8.1 mg/dl (8.5-10.1); Creatinine Clr Calc Pharmacy 86.1 ml/min; Est GFR (African American) 98.5; Potassium 3.5 mmol/L (3.5-5.1)
[2019-12-26 17:37] LABS: Basophils # (auto) 0.01 K/uL (0-0.2); Hypochromasia Present; Immature Granulocytes # (auto) 0.14 K/uL (0.00-0.02); Immature Granulocytes % (auto) 0.5 %; Lymphocytes # (auto) 1.27 K/uL (1.2-3.4); Lymphocytes % (auto) 4.9 %; Monocytes # (auto) 1.11 K/uL (0.11-0.59); Monocytes % (auto) 4.3 %; Neutrophils # (auto) 23.39 K/uL (1.4-6.5); Neutrophils % (auto) 90.3 %
[2019-12-26 17:40] LABS: Albumin Globulin Ratio 0.9 (0.9-2); Bilirubin,Total 4.2 mg/dl (0.2-1); Globulin 3.4 gm/dl (2.5-4.0); Total Protein 6.3 gm/dl (6.4-8.2)
[2019-12-26 17:46] LABS: Magnesium 2.2 mg/dl (1.8-2.4); Thyroid Stimulating Hormone 0.955 uIu/ml (0.300-4.500); Troponin I < 0.015 ng/ml (0-0.045)
[2019-12-26] MEDS ORDERED: OPTIRAY 320 125ml IV PRN (18:06)
--- NOTE | 2019-12-26 18:29 | CT Scan Report ---
CT angio chest PE protocol CT DOSE: HISTORY: PE, resp failure, hypoxia TECHNIQUE: Multiaxial CT images of the chest were performed following the intravenous administration of contrast to evaluate the pulmonary arteries. Maximal intensity projection images were also obtaine d. A dose lowering technique was utilized adhering to the principles of ALARA. COMPARISON STUDY: 12/13/2019 FINDINGS: Pulmonary vasculature enhances appropriately. No major central pulmonary embolus is appreci ated. The distal pulmonary arterial structures are not well defined due to respiratory motion. Interval development of a consolidative right lower lobe infiltrate. Reticular nodular type infiltrat hanny changes of the left lower lobe and to a lesser extent lingula. IMPRESSION: 1. No evidence for a major central pulmonary embolus. 2. Consolidative right lower lobe infiltrate. 3. Patchy parenchymal/interstitial infiltrative change left lower lobe and to a lesser extent lingula . ACT 112: Negative or not required by law. The above report was generated using voice recognition software. It may contain grammatical, syntax or spelling errors. Electronically signed by: Alex Ndiaye M.D. 12/26/2019 6:27 PM
[2019-12-26] MEDS ORDERED: VANCOMYCIN CONSULT ACTIVE PRN ×2 (18:30→21:54)
[2019-12-26] MEDS ORDERED: PIPERACILL/TAZOBAC CONSULT ACTIVE PRN ×2 (18:30→21:54)
[2019-12-26] MEDS ORDERED: PIPERACILLIN/TAZOBACTAM 4.5 GM/120 ML BAG IV ONE (18:30)
[2019-12-26] MEDS ORDERED: VANCOMYCIN HCL 2,000 MG in SODIUM CHLORIDE 0.9% 500 ML IV ONE (18:30)
--- NOTE | 2019-12-26 18:34 | CT Scan Report ---
Study: CT angiogram abdomen and pelvis history: Bleeding. Pain. COMPARISON: 12/18/2019 FINDINGS: Consolidative right basilar infiltrate. Patchy left basilar infiltrate. Configuration the liver is unremarkable. Spleen enhances uniformly. There is a moderate amount of hem operitoneum. This is slightly improved. The left rectus sheath hematoma has diminished in prominence with a maximum current dimension 10 x 5 cm. Bowel pattern remains nonobstructive. There is moderate amount of free fluid and/or blood within the the pelvis which is similar as compared to the prior study. There is a ventral hernia containing fat exclusively. , Aorta as well as iliac vasculature shows moderate atherosclerotic change. There is no evidence for aneurysm or dissection. IMPRESSION: 1. Interval development of a consolidative right lower lobe infiltrate. 2. Interval development of a patchy left basilar infiltrate. 3. Moderate improvement of a left rectus sheath hematoma. 4. Hemoperitoneum considered stable to perhaps slightly improved compared to the prior study. 5. No significant abnormality of the abdominal and pelvic arterial vasculature. Electronically signed by: Alex Ndiaye M.D. 12/26/2019 6:33 PM
[2019-12-26 18:49] LABS: Influenza A virus by PCR Neg for Influ A (Neg); Influenza B virus by PCR Neg for Influ B (Neg)
--- NOTE | 2019-12-26 18:57 | Emergency Department Note ---
Entered by Karen Dickson acting as a scribe for Allan Thorpe M.D. History of Present Illness General Chief complaint: Respiratory Distress Stated complaint: RESP. DISTRESS Time Seen by Provider: 12/26/19 16:47 Source: family () and EMS History of Present Illness Onset (ago): hour(s) (2) Location: chest Pain Consistency: + other (worsening) Quality: + other (respiratory distress) Associated symptoms: + other (difficulty speaking and swallowing, recent stroke and falls) The patient is a 74 year old male who presents to the Emergency Room with complaints of worsening respiratory distress beginning 2 hours ago. The patient's reports he had a stroke and was only discharged from [facility] yesterday. She states he has difficulty speaking and swallowing since the stroke. She notes his left side has been weak since the stroke. The patient's reports the patient had bleeding in the left side of his abdomen while in the hospital following the placement of a PEG tube. She notes the patient was given 4 L of blood. She notes the patient had to be placed on a ventilator while in the hospital. The patient's reports multiple recent falls. She notes he becomes anxious often while in the hospital. She reports a history of COPD. She notes the patient was on Lasix but notes it was stopped due to the internal bleeding. EMS states the patient lives at [facility]. Home Medications Home Medications Medication Instructions Recorded Confirmed Type albuterol sulfate 90 mcg/actuation 2 puffs INHALATION Q4H #18 gm 07/31/19 12/26/19 Rx aerosol inhaler aspirin [Aspirin Low Dose] 81 mg PO DAILY 12/26/19 12/26/19 History fluticasone furoate-vilanterol 1 inh INHALATION DAILY 12/26/19 12/26/19 History [Breo Ellipta] tamsulosin 0.4 mg PO DAILY 12/26/19 12/26/19 History Allergies Allergy/AdvReac Type Severity Reaction Status Date / Time fluticasone Allergy Mild Hives Verified 12/26/19 17:20 salmeterol Allergy Mild Hives Verified 12/26/19 17:20 Past Med/Surg History Medical History Arthritis Bronchitis CAD (coronary artery disease) (Chronic) COPD (chronic obstructive pulmonary disease) (Chronic) COPD (chronic obstructive pulmonary disease) Diabetes mellitus (Chronic) Elevated PSA Sleep apnea (Chronic) 09/14/2014- Urinary incontinence Surgical History H/O knee surgery History of cardiac catheterization 05/01/2010-PCI of OM 2 with CAROLINE Family History Mother Heart disease Hypertension Denies family history of Ovarian cancer Prostate cancer Breast cancer Lung cancer Colorectal cancer Social History Preferred Language: Cameroonian Communication Ability: Effective Visual Impairment: No Limitations Hearing Ability: Use of Hearing Aid 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 Son yemi lives within a few minutes current occupational status: retired Feels Safe at Home: Yes Smoking Status: Former smoker Tobacco Type: cigarettes and smokeless tobacco ; Age Started Using Tobacco: 15 ; Age Quit Using Tobacco: 30 ; packs per day: 2 ; Number of Years Since Quit: 44 ; Second Hand Exposure: Yes ; Hx Alcohol Use: Yes Alcohol type: beer Hx Substance Use: No Diet Comment: regular caffeine: Yes during the past year weight has: decreased > 10 lbs Dental Care, Regularly: Yes Physical Activity Frequency: Does not Exercise Seatbelt Use: always Sunscreen Use: No Review of Systems See HPI for pertinent positives & negatives. and A total of 10 systems reviewed and were otherwise negative Physical Exam Vital Signs Vital Signs - 24 hr 12/26/19 16:44 12/26/19 16:45 12/26/19 16:46 Pulse Rate 92 H 89 97 H Pulse Rate [Apical] Pulse Rate from SpO2 Sensor 94 H 79 99 H Pulse Rhythm Pulse Strength Respiratory Rate Respiratory Effort / Characteristics Respiratory Depth Respiratory Pattern Blood Pressure 175/66 H Blood Pressure [Right Arm] Blood Pressure Mean 110 Blood Pressure Mean [Right Arm] Blood Pressure Position Pulse Oximetry 90 90 90 Oxygen Delivery Method Oxygen Flow Rate Fraction of Inspired Oxygen Sepsis Recent Fever Within 48 Hours Sepsis Action Taken by Nursing 12/26/19 16:54 12/26/19 17:00 12/26/19 17:10 Pulse Rate 93 H 97 H 104 H Pulse Rate [Apical] Pulse Rate from SpO2 Sensor 96 H Pulse Rhythm Regular Pulse Strength Normal Respiratory Rate 47 H 28 H Respiratory Effort / Characteristics Labored Short of Breath Spontaneous Labored Respiratory Depth Deep Respiratory Pattern Regular Blood Pressure 175/66 H 172/87 H Blood Pressure [Right Arm] Blood Pressure Mean 102 131 Blood Pressure Mean [Right Arm] Blood Pressure Position Lying Pulse Oximetry 89 L 92 91 Oxygen Delivery Method Nasal Cannula Oxygen Flow Rate 6 Fraction of Inspired Oxygen 50 Sepsis Recent Fever Within 48 Hours No Sepsis Action Taken by Nursing No Action Required 12/26/19 17:15 12/26/19 17:30 12/26/19 17:35 Pulse Rate 89 105 H 95 H Pulse Rate [Apical] Pulse Rate from SpO2 Sensor 90 97 H 95 H Pulse Rhythm Pulse Strength Respiratory Rate Respiratory Effort / Characteristics Respiratory Depth Respiratory Pattern Blood Pressure 167/86 H 172/87 H Blood Pressure [Right Arm] Blood Pressure Mean 96 109 Blood Pressure Mean [Right Arm] Blood Pressure Position Pulse Oximetry 92 90 90 Oxygen Delivery Method Oxygen Flow Rate Fraction of Inspired Oxygen Sepsis Recent Fever Within 48 Hours Sepsis Action Taken by Nursing 12/26/19 17:38 12/26/19 17:40 12/26/19 18:11 Pulse Rate 104 H Pulse Rate [Apical] Pulse Rate from SpO2 Sensor 94 H 98 H 107 H Pulse Rhythm Pulse Strength Respiratory Rate Respiratory Effort / Characteristics Respiratory Depth Respiratory Pattern Blood Pressure 155/85 H 165/83 H 187/92 H Blood Pressure [Right Arm] Blood Pressure Mean 95 112 114 Blood Pressure Mean [Right Arm] Blood Pressure Position Pulse Oximetry 92 92 100 Oxygen Delivery Method Oxygen Flow Rate Fraction of Inspired Oxygen Sepsis Recent Fever Within 48 Hours Sepsis Action Taken by Nursing 12/26/19 18:12 12/26/19 18:14 12/26/19 18:15 Pulse Rate 109 H 102 H 101 H Pulse Rate [Apical] Pulse Rate from SpO2 Sensor 109 H 101 H 100 H Pulse Rhythm Pulse Strength Respiratory Rate Respiratory Effort / Characteristics Respiratory Depth Respiratory Pattern Blood Pressure 179/109 H Blood Pressure [Right Arm] Blood Pressure Mean 143 Blood Pressure Mean [Right Arm] Blood Pressure Position Pulse Oximetry 100 97 94 Oxygen Delivery Method Oxygen Flow Rate Fraction of Inspired Oxygen Sepsis Recent Fever Within 48 Hours Sepsis Action Taken by Nursing 12/26/19 18:20 12/26/19 18:25 12/26/19 18:30 Pulse Rate 100 H 107 H 106 H Pulse Rate [Apical] Pulse Rate from SpO2 Sensor 94 H 102 H 106 H Pulse Rhythm Pulse Strength Respiratory Rate Respiratory Effort / Characteristics Respiratory Depth Respiratory Pattern Blood Pressure 186/75 H 163/89 H Blood Pressure [Right Arm] Blood Pressure Mean 119 118 Blood Pressure Mean [Right Arm] Blood Pressure Position Pulse Oximetry 96 99 96 Oxygen Delivery Method Oxygen Flow Rate Fraction of Inspired Oxygen Sepsis Recent Fever Within 48 Hours Sepsis Action Taken by Nursing 12/26/19 18:31 12/26/19 19:00 12/26/19 19:02 Pulse Rate 104 H Pulse Rate [Apical] 105 H Pulse Rate from SpO2 Sensor 110 H Pulse Rhythm Pulse Strength Respiratory Rate 42 H 48 H Respiratory Effort / Characteristics Spontaneous Accessory Muscle Use Labored Respiratory Depth Normal Respiratory Pattern Regular Blood Pressure 144/68 H Blood Pressure [Right Arm] 114/89 Blood Pressure Mean 86 Blood Pressure Mean [Right Arm] 97 Blood Pressure Position Pulse Oximetry 90 99 99 Oxygen Delivery Method BiPAP BiPAP BiPAP Oxygen Flow Rate Fraction of Inspired Oxygen Sepsis Recent Fever Within 48 Hours Sepsis Action Taken by Nursing GENERAL: Awake, alert to voice, in respiratory distress HENT: Normocephalic, atraumatic. EYES: Normal conjunctiva. Sclera non-icteric. NECK: Supple. No nuchal rigidity. RESPIRATORY: Rhonchus noted. Increased respiratory effort. Tachypneic. CARDIAC: Tachycardicrate. Irregular rhythm. Extremities warm and well perfused. GI: Soft, non-distended. Mild abdominal tenderness to palpation. Healing contusion on mid abdomen. Mid abdominal PEG tube in place. RECTAL: Deferred. MUSCULOSKELETAL: Atraumatic. Chest examination reveals no tenderness. Left upper chest wall healing contusion. LOWER EXTREMITIES: Calves are equal size bilaterally and non-tender. 2+ lower extremity edema. NEURO: Fatigued, right facial droop. Left sided contracture of hand and L sided weakness. slurred speech. SKIN: Warm and dry. No jaundice noted. Course Course 1640: Past medical records reviewed. The patient was evaluated in room B01. A complete history and physical exam was performed. 1950: Upon reevaluation, the patient was feeling better. I discussed findings and results with the patient and his . They verbalized agreement of the t reatment plan. I spoke with Dr. Moss of the [facility] Hospitalist Service. The patient will be evaluated for further management and care. Administered Medications Vancomycin HCl 2,000 mg/ (Sodium Chloride) 540 mls @ 200 mls/hr IV NOW ONE Stop: 12/26/19 21:11 Last Admin: 12/26/19 18:52 Dose: 200 mls/hr Documented by: [id number] Ioversol (Optiray 320 125ml) 119 ml IV ONCE PRN PRN Reason: Interaction Checking Stop: 12/30/19 18:05 Last Admin: 12/26/19 18:06 Dose: 119 ml Documented by: [id number] Discontinued Medications Furosemide (Lasix) 40 mg IV NOW STA Stop: 12/26/19 16:50 Last Admin: 12/26/19 17:02 Dose: 40 mg Documented by: [id number] Piperacillin Sod/Tazobactam Sod (Zosyn) 4.5 gm in 120 mls @ 240 mls/hr IV NOW ONE Stop: 12/26/19 18:59 Last Infusion: 12/26/19 19:40 Dose: 0 mls/hr Documented by: [id number] Admin: 12/26/19 18:36 Dose: 240 mls/hr Documented by: [id number] Critical Care Time Critical Care Time: Yes Total Critical Care Time: 75 I have personally spent 75 minutes of critical care time in the direct management of this patient. This includes bedside care, interpretation of diagnostic studies, and testing, discussion with consultants, patient, and family members, and other required patient management activities. This 75 minutes is in excess of all separately billable procedures. Medical Decision Making Differential Diagnosis Differential diagnoses includes but is not limited to pneumonia, bronchitis, COPD/Asthma exacerbation, pneumothorax, pulmonary embolism, congestive heart failure, acute coronary syndrome Medical Records Attestation: I reviewed the patient's medical records. Home Medications Current Medication List: was personally reviewed by me Laboratory Data Attestation: I reviewed the patient's lab results. Result diagrams: 12/26/19 16:50 12/26/19 16:50 Lab Results 12/26/19 12/26/19 12/26/19 Range/Units 16:50 16:50 16:50 WBC 25.92 H (4.8-10.8) K/uL RBC 3.72 L (4.7-6.1) M/uL Hgb 10.8 L (14.0-18.0) g/dL Hct 33.1 L (42-52) % MCV 89.0 (80-100) fL MCH 29.0 (25-34) pg MCHC 32.6 (32-36) g/dL RDW Std Deviation 54.5 H (36.4-46.3) fL RDW Coeff of [place] 17.0 H (11.5-14.5) % Plt Count 335 (130-400) K/uL MPV 10.4 (7.4-10.4) fL Immature Gran % (Auto) 0.5 % Neut % (Auto) 90.3 % Lymph % (Auto) 4.9 % [place] % (Auto) 4.3 % Eos % (Auto) 0.0 % Baso % (Auto) 0.0 % Immature Gran # (Auto) 0.14 H (0.00-0.02) K/uL Neut # (Auto) 23.39 H (1.4-6.5) K/uL Lymph # (Auto) 1.27 (1.2-3.4) K/uL [place] # (Auto) 1.11 H (0.11-0.59) K/uL Eos # (Auto) 0.00 (0-0.5) K/uL Baso # (Auto) 0.01 (0-0.2) K/uL Hypochromasia Present PT (9.0-12.0) Seconds INR (0.9-1.1) VBG pH 7.44 H (7.36-7.41) VBG pCO2 40 (38-50) mmHg VBG pO2 51 mmHg VBG HCO3 26 mmol/L VBG O2 Saturation 84.6 % VBG Base Excess 2.0 mEq/L Barometric Pressure 736.3 mm/Hg Sodium 138 (136-145) mmol/L Potassium 3.5 (3.5-5.1) mmol/L Chloride 106 (98-107) mmol/L Carbon Dioxide 28 (21-32) mmol/L Anion Gap 4.0 (3-11) BUN 31 H (7-18) mg/dl Creatinine 0.87 (0.6-1.4) mg/dl Est Cr Clr Drug Dosing 86.1 ml/min Est GFR ( Amer) 98.5 Est GFR (Non-Af Amer) 85.0 BUN/Creatinine Ratio 35.3 H (10-20) Glucose 254 H (70-99) mg/dl Lactate (0.4-2.0) mmol/L Calcium 8.1 L (8.5-10.1) mg/dl Magnesium (1.8-2.4) mg/dl Total Bilirubin 4.2 H (0.2-1) mg/dl AST 35 (15-37) U/L ALT 119 H (12-78) U/L Alkaline Phosphatase 93 (45-117) U/L Troponin I (0-0.045) ng/ml Total Protein 6.3 L (6.4-8.2) gm/dl Albumin 2.9 L (3.4-5.0) gm/dl Globulin 3.4 (2.5-4.0) gm/dl Albumin/Globulin Ratio 0.9 (0.9-2) Procalcitonin (0-0.5) ng/ml TSH (0.300-4.500) uIu/ml Specimen Hemolysis Influenza Type A (PCR) (Neg) Influenza Type B (PCR) (Neg) Blood Type Antibody Screen 12/26/19 12/26/19 12/26/19 Range/Units 16:50 16:50 16:50 WBC (4.8-10.8) K/uL RBC (4.7-6.1) M/uL Hgb (14.0-18.0) g/dL Hct (42-52) % MCV (80-100) fL MCH (25-34) pg MCHC (32-36) g/dL RDW Std Deviation (36.4-46.3) fL RDW Coeff of [place] (11.5-14.5) % Plt Count (130-400) K/uL MPV (7.4-10.4) fL Immature Gran % (Auto) % Neut % (Auto) % Lymph % (Auto) % [place] % (Auto) % Eos % (Auto) % Baso % (Auto) % Immature Gran # (Auto) (0.00-0.02) K/uL Neut # (Auto) (1.4-6.5) K/uL Lymph # (Auto) (1.2-3.4) K/uL [place] # (Auto) (0.11-0.59) K/uL Eos # (Auto) (0-0.5) K/uL Baso # (Auto) (0-0.2) K/uL Hypochromasia PT 12.5 H (9.0-12.0) Seconds INR 1.2 H (0.9-1.1) VBG pH (7.36-7.41) VBG pCO2 (38-50) mmHg VBG pO2 mmHg VBG HCO3 mmol/L VBG O2 Saturation % VBG Base Excess mEq/L Barometric Pressure mm/Hg Sodium (136-145) mmol/L Potassium (3.5-5.1) mmol/L Chloride (98-107) mmol/L Carbon Dioxide (21-32) mmol/L Anion Gap (3-11) BUN (7-18) mg/dl Creatinine (0.6-1.4) mg/dl Est Cr Clr Drug Dosing ml/min Est GFR ( Amer) Est GFR (Non-Af Amer) BUN/Creatinine Ratio (10-20) Glucose (70-99) mg/dl Lactate 2.0 (0.4-2.0) mmol/L Calcium (8.5-10.1) mg/dl Magnesium 2.2 (1.8-2.4) mg/dl Total Bilirubin (0.2-1) mg/dl AST (15-37) U/L ALT (12-78) U/L Alkaline Phosphatase (45-117) U/L Troponin I < 0.015 (0-0.045) ng/ml Total Protein (6.4-8.2) gm/dl Albumin (3.4-5.0) gm/dl Globulin (2.5-4.0) gm/dl Albumin/Globulin Ratio (0.9-2) Procalcitonin (0-0.5) ng/ml TSH 0.955 (0.300-4.500) uIu/ml Specimen Hemolysis Influenza Type A (PCR) (Neg) Influenza Type B (PCR) (Neg) Blood Type Antibody Screen 12/26/19 12/26/19 12/26/19 Range/Units 16:50 17:46 Unknown WBC (4.8-10.8) K/uL RBC (4.7-6.1) M/uL Hgb (14.0-18.0) g/dL Hct (42-52) % MCV (80-100) fL MCH (25-34) pg MCHC (32-36) g/dL RDW Std Deviation (36.4-46.3) fL RDW Coeff of [place] (11.5-14.5) % Plt Count (130-400) K/uL MPV (7.4-10.4) fL Immature Gran % (Auto) % Neut % (Auto) % Lymph % (Auto) % [place] % (Auto) % Eos % (Auto) % Baso % (Auto) % Immature Gran # (Auto) (0.00-0.02) K/uL Neut # (Auto) (1.4-6.5) K/uL Lymph # (Auto) (1.2-3.4) K/uL [place] # (Auto) (0.11-0.59) K/uL Eos # (Auto) (0-0.5) K/uL Baso # (Auto) (0-0.2) K/uL Hypochromasia PT (9.0-12.0) Seconds INR (0.9-1.1) VBG pH (7.36-7.41) VBG pCO2 (38-50) mmHg VBG pO2 mmHg VBG HCO3 mmol/L VBG O2 Saturation % VBG Base Excess mEq/L Barometric Pressure mm/Hg Sodium (136-145) mmol/L Potassium (3.5-5.1) mmol/L Chloride (98-107) mmol/L Carbon Dioxide (21-32) mmol/L Anion Gap (3-11) BUN (7-18) mg/dl Creatinine (0.6-1.4) mg/dl Est Cr Clr Drug Dosing ml/min Est GFR ( Amer) Est GFR (Non-Af Amer) BUN/Creatinine Ratio (10-20) Glucose (70-99) mg/dl Lactate (0.4-2.0) mmol/L Calcium (8.5-10.1) mg/dl Magnesium (1.8-2.4) mg/dl Total Bilirubin (0.2-1) mg/dl AST (15-37) U/L ALT (12-78) U/L Alkaline Phosphatase (45-117) U/L Troponin I (0-0.045) ng/ml Total Protein (6.4-8.2) gm/dl Albumin (3.4-5.0) gm/dl Globulin (2.5-4.0) gm/dl Albumin/Globulin Ratio (0.9-2) Procalcitonin 0.34 (0-0.5) ng/ml TSH (0.300-4.500) uIu/ml Specimen Hemolysis Influenza Type A (PCR) Neg for Influ A (Neg) Influenza Type B (PCR) Neg for Influ B (Neg) Blood Type O Positive Antibody Screen NEGATIVE Imaging Data Radiologist's Impression: Radiology results as stated below per my review and the radiologist's interpretation: XR chest 1V portable CLINICAL HISTORY: respiratory distress dyspnea COMPARISON STUDY: 12/18/2019 FINDINGS: Chronic elevation right hemidiaphragm. Platelike atelectasis both lung bases. Minimal upper lungs are clear. IMPRESSION: Platelike atelectasis both lung bases. Mild chronic elevation right hemidiaphragm. ACT 112: Negative or not required by law. The above report was generated using voice recognition software. It may contain grammatical, syntax or spelling errors. Electronically signed by: Alex Ndiaye M.D. 12/26/2019 4:[address] angio chest PE protocol CT DOSE: HISTORY: PE, resp failure, hypoxia TECHNIQUE: Multiaxial CT images of the chest were performed following the intravenous administration of contrast to evaluate the pulmonary arteries. Maximal intensity projection images were also obtained. A dose lowering technique was utilized adhering to the principles of ALARA. COMPARISON STUDY: 12/13/2019 FINDINGS: Pulmonary vasculature enhances appropriately. No major central pulmo nary embolus is appreciated. The distal pulmonary arterial structures are not well defined due to respiratory motion. Interval development of a consolidative right lower lobe infiltrate. Reticular nodular type infiltrative changes of the left lower lobe and to a lesser extent lingula. IMPRESSION: 1. No evidence for a major central pulmonary embolus. 2. Consolidative right lower lobe infiltrate. 3. Patchy parenchymal/interstitial infiltrative change left lower lobe and to a lesser extent lingula. ACT 112: Negative or not required by law. The above report was generated using voice recognition software. It may contain grammatical, syntax or spelling errors. Electronically signed by: Alex Ndiaye M.D. 12/26/2019 6:27 PM Study: CT angiogram abdomen and pelvis history: Bleeding. Pain. COMPARISON: 12/18/2019 FINDINGS: Consolidative right basilar infiltrate. Patchy left basilar infiltrate. Configuration the liver is unremarkable. Spleen enhances uniformly. There is a moderate amount of hemoperitoneum. This is slightly improved. The left rectus sheath hematoma has diminished in prominence with a maximum current dimension 10 x 5 cm. Bowel pattern remains nonobstructive. There is moderate amount of free fluid and/or blood within the the pelvis which is similar as compared to the prior study. There is a ventral hernia containing fat exclusively. , Aorta as well as iliac vasculature shows moderate atherosclerotic change. There is no evidence for aneurysm or dissection. IMPRESSION: 1. Interval development of a consolidative right lower lobe infiltrate. 2. Interval development of a patchy left basilar infiltrate. 3. Moderate improvement of a left rectus sheath hematoma. 4. Hemoperitoneum considered stable to perhaps slightly improved compared to the prior study. 5. No significant abnormality of the abdominal and pelvic arterial vasculature. Electronically signed by: Alex Ndiaye M.D. 12/26/2019 6:33 PM ECG Data Attestation: I personally reviewed and interpreted this ECG as follows: Indication: + SOB/dyspnea Rate (beats per minute): 93 Rhythm: + sinus rhythm ECG Intervals/blocks: + Right Bundle branch block ECG ST segments: no ST depression and no ST elevation ECG Findings: + PACs Comparison ECG Date: from (12/17/2019) Change: no significant change Blood Pressure Blood Pressure Findings: Elevated blood pressure Blood Pressure Disposition: further management by hospitalist JULY Archer Patient is a 74-year-old gentleman history of atrial fibrillation, COPD, CAD, diabetes with additional complex history of stroke symptoms over the last several weeks admitted here at the hospital. Patient developed hemoperitoneum thought to be related to possible PEG tube placement on the 12th of this month transferred to [facility] where he was transfused. Discharged from there yesterday stable and went to [facility] today for further care. Developed over the morning in particular this afternoon worsening shortness of breath difficulty breathing. EMS was called. Placed on CPAP initially. Patient in significant respiratory distress and tachypneic upon arrival. Placed on BiPAP. Patient's significant other emphasized the patient is DNR/DNI. Paperwork from [facility] indicates that the patient is DNR/DNI. Concern for some fluid overload he does not sound wheezy but is significantly rhonchorous. Given a dose of Lasix empirically. Labs cultures were obtained. CT of the chest abdomen pelvis were obtained to look for possible PE, underlying pulmonary pathology, or other intra-abdominal pathology. Residual deficit in the left-sided upper body but I doubt this is acutely neurological. VBG was sent as well as lactate. Not significantly acidotic or hypercarbic. Patient does have a significant leukocytosis of 25,000 although in comparison to previous does appear similar. Labs from [facility] yesterday indicate a white blood cell count however somewhat lower at 15.6. Hemoglobin is at 10.8 today compared to 10.2 yesterday. This at least initially is not significantly lower. Lactate 2.0. Troponins undetectable. Procalcitonin of 0.34 in the indeterminate range. Not in septic shock. CT scan of the chest abdomen pelvis with contrast shows no evidence of large PE. No acute intra-abdominal bleeding with prior old bleed. Evidence of some consolidation in the right lower lobe, LLL, and lingula of the lung concerning for pneumonia. Started on Zosyn and vancomycin. Further discussion with family members here reports that he has been eating orally and given the distribution of the pneumonia findings could possibly consider this is an aspiration type event. Again I discussed with them and he is DNR/DNI. Given his respiratory status need for respiratory support patient require admission. They were agreeable for antibiotics and noninvasive positive pressure ventilation. Hospitalist contacted. Impression & Plan Respiratory failure, Multifocal pneumonia, Respiratory distress Discharge Plan Visit Data Chief Complaint: Respiratory Distress Stated Complaint: RESP. DISTRESS ED Provider: Allan Thorpe Discharge Problem: Respiratory failure, Multifocal pneumonia, Respiratory distress Patient Disposition: Being Evaluated by Hospitalist Forms Stand Alone Forms: My [facility] [employer] Prescriptions Prescriptions: No Action albuterol sulfate 90 mcg/actuation HFA aerosol inhaler 2 puffs inhalation Q4H Qty: 18 RF: 5 aspirin [Aspirin Low Dose] 81 mg Tablet,Delayed Release (Dr/Ec) 81 mg PO DAILY RF: 0 tamsulosin 0.4 mg capsule 0.4 mg PO DAILY RF: 0 Breo Ellipta 100-25 mcg/dose blister with device 1 inh INHALATION DAILY RF: 0 Referrals Referrals: Kimani Meier CRNP [Primary Care Provider] - Discharge Problem: Respiratory failure Qualifiers: Chronicity: unspecified Respiratory failure complication: unspecified whether with hypoxia or hypercapnia Qualified Code(s): J96.90 - Respiratory failure, unspecified, unspecified whether with hypoxia or hypercapnia The scribe's documentation has been prepared under my direction and personally reviewed by me in its entirety. I confirm that the note above accurately r eflects all work, treatment, procedures, and medical decision making performed by me.
[2019-12-26] MEDS ORDERED: HALOPERIDOL LACTATE 5 MG/ML 1 ML VIAL IV STA (20:41)
[2019-12-26] MEDS ORDERED: HALOPERIDOL LACTATE 5 MG/ML 1 ML VIAL ONE (20:43)
[2019-12-26] MEDS ORDERED: DEXTROSE 50% 50 ML SYRINGE IV PRN (21:54)
[2019-12-26] MEDS ORDERED: GLUCAGON FOR INJ 1 MG VIAL SQ PRN (21:54)
[2019-12-26] MEDS ORDERED: CARBOHYDRATES FOR HYPOGLYCEMIA PO PRN (21:54)
[2019-12-26] MEDS ORDERED: ONDANSETRON INJ 2 MG/ML 2 ML VIAL IV PRN (21:54)
[2019-12-26] MEDS ORDERED: GLUCOSE 10 TABS/TUBE PO PRN (21:54)
[2019-12-26] MEDS ORDERED: GLUCOSE 40% GEL 15 GM TUBE PO PRN (21:54)
[2019-12-26] MEDS ORDERED: HALOPERIDOL LACTATE 5 MG/ML 1 ML VIAL IM PRN (21:54)
[2019-12-26 22:38] LABS: Appearance Urine Cloudy (Clear); Bacteria Urine Automated Negative (Negative); Bilirubin Urine Negative (Negative); Blood Urine 3+ (Negative); Color Urine Orange; Epithelial Cell Urine Auto 0-5 /lpf (0-5); Glucose Urine UA Negative (Negative); Ketones Urine Negative (Negative); Leukocyte Esterase Urine Negative (Negative); Nitrite Urine Negative (Negative); Protein Urine Negative (Negative); RBC Urine Automated >30 /hpf (0-4); Specific Gravity Urine 1.031 (1.000-1.030); Urobilinogen Urine Negative (Negative)
[2019-12-26] MEDS: ALBUMIN 25% 50 ML with FUROSEMIDE 40 MG IV SCH (23:00)
[2019-12-26] MEDS: methylPREDNISolone 40 MG in SYRINGE 0 ML IV SCH (23:01)
[2019-12-26] MEDS: INSULIN ASPART 100 UNITS/ML 3 ML PEN SC SCH (23:12)
--- NOTE | 2019-12-26 23:30 | History & Physical Report ---
Date of Service December 26, 2019 Assessment & Plan (1) Acute respiratory failure with hypoxia: Acute respiratory failure with hypoxia/multifocal pneumonia with dense consolidation right lower lobe and patchy infiltrates left lower lobe and lingula/COPD exacerbation- Contributing to metabolic encephalopathy, causing decreased responsiveness. Continue vancomycin IV and Zosyn IV begun in the ED. Duonebs every 4 hours while awake and every 2 hours when necessary. Continue BiPAP, and if symptoms improve, taper to nasal cannula oxygen. Mild fluid overload, responded to Lasix 40 mg IV in ED, and will place on albumin with Lasix IV twice daily for 24 hours. Present on Admission?: Yes (2) Multifocal pneumonia: His reports that there was initial concern about aspiration prior to transfer, but after he was extubated at [facility], they reported that he was able to take in regular liquids orally and has not used the PEG tube since. Patient will be kept n.p.o. until assessed by speech therapy here. If slower to recover than expected, could consult pulmonology. Present on Admission?: Yes (3) COPD (chronic obstructive pulmonary disease): See above Present on Admission?: Yes (4) Metabolic encephalopathy: See above Present on Admission?: Yes (5) CAD (coronary artery disease): CAD/hypertension/paroxysmal atrial fibrillation- Admit to monitored bed, follow serial cardiac enzymes and monitor for arrhythmia. Present on Admission?: Yes (6) Paroxysmal atrial fibrillation: See above Present on Admission?: Yes (7) Pulmonary embolism: Not a candidate for anticoagulation due to recent rectus sheath hematoma and hemoperitoneum, both of which are decreasing in size as noted on CT today Present on Admission?: Yes (8) Diabetes mellitus: No routine medications listed for treatment. Placed on Accu-Cheks before meals and at bedtime with NovoLog coverage per scale. Check hemoglobin A1c. Present on Admission?: Yes (9) BPH (benign prostatic hyperplasia): Continue tamsulosin 0.4 mg at bedtime, via PEG tube Present on Admission?: Yes (10) Abnormal LFTs: Total bilirubin is increased from 1.5-4.2. ALT has increased from 20-119, both since 12/18/2019. CT abdomen pelvis does not detect abnormalities in the liver. INR was 1.3, and is decreased to 1.2. Continue monitor closely for shock liver. Present on Admission?: Yes History of Present Illness Chief Complaint: The patient presents to the emergency department with acute respiratory failure with hypoxia, that began about 2 hours prior to arrival. Primary Care Provider: ROWAN Melo The patient is a 74-year-old male with a past medical history including acute blood loss anemia, hemoperitoneum, metabolic encephalopathy, oropharyngeal dysphagia, ambulatory dysfunction, BPH, paroxysmal atrial fibrillation, acute ischemic stroke, A. fib, pulmonary embolism, urinary incontinence, diabetes mellitus, CAD, COPD, bronchitis and pneumonia. The patient was most recently omitted to [facility] from December 12 through December 18 for acute ischemic stroke. He was then transferred to [facility] at [facility], where he was discharged yesterday to [facility]. The patient himself is unresponsive and unable to provide information for HPI or review of systems. His , who is in attendance, provides his history. She reports that the patient had difficulty speaking and swallowing since the stroke, and has had weakness on his left side. He has had a PEG tube placed prior to transfer to [facility], was placed on the ventilator while at [facility], and ultimately when he was removed from the ventilator his reports that he was able to swallow per their assessment. Upon discharge yesterday and prior to discharge from [facility], she reports that the patient was able to eat ice cream and Jell-O's, essentially with liquid consistency. She notes that at [facility] yesterday, he ate ice cream very quickly, and became short of breath shortly thereafter. Allergies Allergy/AdvReac Type Severity Reaction Status Date / Time fluticasone Allergy Mild Hives Verified 12/26/19 17:20 salmeterol Allergy Mild Hives Verified 12/26/19 17:20 Home Medications Home Medications Medication Instructions Recorded Confirmed Type albuterol sulfate 90 mcg/actuation 2 puffs INHALATION Q4H #18 gm 07/31/19 12/26/19 Rx aerosol inhaler aspirin [Aspirin Low Dose] 81 mg PO DAILY 12/26/19 12/26/19 History fluticasone furoate-vilanterol 1 inh INHALATION DAILY 12/26/19 12/26/19 History [Breo Ellipta] tamsulosin 0.4 mg PO DAILY 12/26/19 12/26/19 History Past Med/Surg History Medical History Arthritis Bronchitis CAD (coronary artery disease) (Chronic) COPD (chronic obstructive pulmonary disease) (Chronic) COPD (chronic obstructive pulmonary disease) Diabetes mellitus (Chronic) Elevated PSA Sleep apnea (Chronic) 09/14/2014- Urinary incontinence Surgical History H/O knee surgery History of cardiac catheterization 05/01/2010-PCI of OM 2 with CAROLINE Family History Mother Heart disease Hypertension Denies family history of Ovarian cancer Prostate cancer Breast cancer Lung cancer Colorectal cancer Social History Preferred Language: Canadian Communication Ability: Effective Visual Impairment: No Limitations Hearing Ability: Use of Hearing Aid Financial Compliance Examiner Required: No Beliefs That Will Affect Care: None marital status: / Current Living Situation: Longterm Current Living Situation Comment: with significant other. Son yemi lives within a few minutes current occupational status: retired Other Information That Helps Us Care for You: No Feels Safe at Home: Yes Safety Concerns: Feels Safe At This Time Smoking Status: Former smoker Tobacco Type: cigarettes and smokeless tobacco ; Age Started Using Tobacco: 15 ; Age Quit Using Tobacco: 30 ; packs per day: 2 ; Number of Years Since Quit: 44 ; Second Hand Exposure: Yes ; Hx Alcohol Use: No Hx Substance Use: No Diet Comment: regular caffeine: Yes during the past year weight has: decreased > 10 lbs Dental Care, Regularly: Yes Physical Activity Frequency: Does not Exercise Seatbelt Use: always Sunscreen Use: No Review of Systems Review of Systems: Unobtainable due to reduced consciousness Physical Exam Physical Exam: The patient is unresponsive, on BiPAP, normocephalic and atraumatic, lying in bed and in moderate respiratory distress. HEENT--PERRL, EOMI, mucous membranes and oropharynx dry. Neck--supple. No JVD. No bruits. Thyroid normal, trachea midline, no adenopathy. Heart--normal S1 and S2. No murmurs, rubs or gallops. Lungs--coarse breath sounds bilaterally. Moderate respiratory distress, without accessory muscle use at this time since on the BiPAP. Abdomen--normal bowel sounds and soft. Nontender. Nondistended. Mildly tympanitic. Extremities--no cyanosis or clubbing. Right lower extremity with 2+ pretibial pitting edema, with ecchymosis along posterior calf area. Dermatologic--see above Neurologic--limited exam due to decreased consciousness Rheumatologic--limited exam Psychiatric--unresponsive Results & Data Vital Signs (Past 12 Hours) Vital Signs Temp Pulse Pulse Resp BP BP Pulse Ox 12/26/19 23:08 98.6 F 111 H 22 139/74 97 12/26/19 22:11 100 H 40 H 100 12/26/19 21:43 99.9 F H 101 H 40 H 155/86 H 97 12/26/19 21:19 98 H 47 H 126/88 98 12/26/19 21:08 97 H 48 H 99 12/26/19 21:00 92 H 48 H 113/66 93 12/26/19 20:45 106 H 47 H 151/78 H 98 12/26/19 20:30 110 H 160/99 H 98 12/26/19 20:16 100 H 164/87 H 98 12/26/19 20:04 101 H 102/84 99 12/26/19 20:00 108 H 99 12/26/19 19:02 105 H 48 H 114/89 99 12/26/19 19:00 99 12/26/19 18:31 104 H 42 H 144/68 H 90 12/26/19 18:30 106 H 96 12/26/19 18:25 107 H 163/89 H 99 12/26/19 18:20 100 H 186/75 H 96 12/26/19 18:15 101 H 94 12/26/19 18:14 102 H 97 12/26/19 18:12 109 H 179/109 H 100 12/26/19 18:11 104 H 187/92 H 100 12/26/19 17:40 165/83 H 92 12/26/19 17:38 155/85 H 92 12/26/19 17:35 95 H 172/87 H 90 12/26/19 17:30 105 H 167/86 H 90 12/26/19 17:15 89 92 12/26/19 17:10 104 H 28 H 91 12/26/19 17:00 97 H 172/87 H 92 12/26/19 16:54 93 H 47 H 175/66 H 89 L 12/26/19 16:46 97 H 90 12/26/19 16:45 89 175/66 H 90 12/26/19 16:44 92 H 90 Laboratory Results Laboratory Results WBC 25.92 K/uL (4.8-10.8) H 12/26/19 16:50 RBC 3.72 M/uL (4.7-6.1) L 12/26/19 16:50 Hgb 10.8 g/dL (14.0-18.0) L 12/26/19 16:50 Hct 33.1 % (42-52) L 12/26/19 16:50 MCV 89.0 fL (80-100) 12/26/19 16:50 MCH 29.0 pg (25-34) 12/26/19 16:50 MCHC 32.6 g/dL (32-36) 12/26/19 16:50 RDW Std Deviation 54.5 fL (36.4-46.3) H 12/26/19 16:50 RDW Coeff of [place] 17.0 % (11.5-14.5) H 12/26/19 16:50 Plt Count 335 K/uL (130-400) 12/26/19 16:50 MPV 10.4 fL (7.4-10.4) 12/26/19 16:50 Immature Gran % (Auto) 0.5 % 12/26/19 16:50 Neut % (Auto) 90.3 % 12/26/19 16:50 Lymph % (Auto) 4.9 % 12/26/19 16:50 [place] % (Auto) 4.3 % 12/26/19 16:50 Eos % (Auto) 0.0 % 12/26/19 16:50 Baso % (Auto) 0.0 % 12/26/19 16:50 Immature Gran # (Auto) 0.14 K/uL (0.00-0.02) H 12/26/19 16:50 Neut # (Auto) 23.39 K/uL (1.4-6.5) H 12/26/19 16:50 Lymph # (Auto) 1.27 K/uL (1.2-3.4) 12/26/19 16:50 [place] # (Auto) 1.11 K/uL (0.11-0.59) H 12/26/19 16:50 Eos # (Auto) 0.00 K/uL (0-0.5) 12/26/19 16:50 Baso # (Auto) 0.01 K/uL (0-0.2) 12/26/19 16:50 Hypochromasia Present 12/26/19 16:50 PT 12.5 Seconds (9.0-12.0) H 12/26/19 16:50 INR 1.2 (0.9-1.1) H 12/26/19 16:50 VBG pH 7.44 (7.36-7.41) H 12/26/19 16:50 VBG pCO2 40 mmHg (38-50) 12/26/19 16:50 VBG pO2 51 mmHg 12/26/19 16:50 VBG HCO3 26 mmol/L 12/26/19 16:50 VBG O2 Saturation 84.6 % 12/26/19 16:50 VBG Base Excess 2.0 mEq/L 12/26/19 16:50 Barometric Pressure 736.3 mm/Hg 12/26/19 16:50 Sodium 138 mmol/L (136-145) 12/26/19 16:50 Potassium 3.5 mmol/L (3.5-5.1) 12/26/19 16:50 Chloride 106 mmol/L (98-107) 12/26/19 16:50 Carbon Dioxide 28 mmol/L (21-32) 12/26/19 16:50 Anion Gap 4.0 (3-11) 12/26/19 16:50 BUN 31 mg/dl (7-18) H 12/26/19 16:50 Creatinine 0.87 mg/dl (0.6-1.4) 12/26/19 16:50 Est Cr Clr Drug Dosing 86.1 ml/min 12/26/19 16:50 Est GFR ( Amer) 98.5 12/26/19 16:50 Est GFR (Non-Af Amer) 85.0 12/26/19 16:50 BUN/Creatinine Ratio 35.3 (10-20) H 12/26/19 16:50 Glucose 254 mg/dl (70-99) H 12/26/19 16:50 POC Glucose 178 mg/dl (70-99) H 12/26/19 23:07 Lactate 2.0 mmol/L (0.4-2.0) 12/26/19 16:50 Calcium 8.1 mg/dl (8.5-10.1) L 12/26/19 16:50 Magnesium 2.2 mg/dl (1.8-2.4) 12/26/19 16:50 Total Bilirubin 4.2 mg/dl (0.2-1) H 12/26/19 16:50 AST 35 U/L (15-37) 12/26/19 16:50 ALT 119 U/L (12-78) H 12/26/19 16:50 Alkaline Phosphatase 93 U/L (45-117) 12/26/19 16:50 Troponin I < 0.015 ng/ml (0-0.045) 12/26/19 16:50 Total Protein 6.3 gm/dl (6.4-8.2) L 12/26/19 16:50 Albumin 2.9 gm/dl (3.4-5.0) L 12/26/19 16:50 Globulin 3.4 gm/dl (2.5-4.0) 12/26/19 16:50 Albumin/Globulin Ratio 0.9 (0.9-2) 12/26/19 16:50 Procalcitonin 0.34 ng/ml (0-0.5) 12/26/19 16:50 TSH 0.955 uIu/ml (0.300-4.500) 12/26/19 16:50 Specimen Hemolysis 12/26/19 16:50 Urine Color [place] 12/26/19 Unknown Urine Appearance Cloudy (Clear) A 12/26/19 Unknown Urine pH 5.0 (4.5-7.5) 12/26/19 Unknown Ur Specific [place] 1.031 (1.000-1.030) H 12/26/19 Unknown Urine Protein Negative (Negative) 12/26/19 Unknown Urine Glucose (UA) Negative (Negative) 12/26/19 Unknown Urine Ketones Negative (Negative) 12/26/19 Unknown Urine Blood 3+ (Negative) H 12/26/19 Unknown Urine Nitrite Negative (Negative) 12/26/19 Unknown Urine Bilirubin Negative (Negative) 12/26/19 Unknown Urine Urobilinogen Negative (Negative) 12/26/19 Unknown Ur Leukocyte Esterase Negative (Negative) 12/26/19 Unknown Urine WBC (Auto) 1-5 /hpf (0-5) 12/26/19 Unknown Urine RBC (Auto) >30 /hpf (0-4) H 12/26/19 Unknown U Hyaline Cast (Auto) 1-5 /lpf (0-5) 12/26/19 Unknown U Epithel Cells (Auto) 0-5 /lpf (0-5) 12/26/19 Unknown Urine Bacteria (Auto) Negative (Negative) 12/26/19 Unknown Nasal Screen MRSA (PCR) Uninterpretable (Negative) 12/26/19 Unknown Influenza Type A (PCR) Neg for Influ A (Neg) 12/26/19 Unknown Influenza Type B (PCR) Neg for Influ B (Neg) 12/26/19 Unknown Blood Type O Positive 12/26/19 17:46 Antibody Screen NEGATIVE 12/26/19 17:46 [facility] [phone] XRay Report Patient: RADHA CANCINO Date: 12/26/19 MR#: [id number]: [id number] [facility] Acct ID:[id number]: Date: [address] [place] [address] Zip: [place] [address] Age: 74Location: ED Sex: M Room/Bed: Att Phy:Diagnosis: RESP. DISTRESS Livia Phy: Kimani Meier CRNPService Date: 12/26/19 Fam Phy:Interpreting Phy: Alex Ndiaye MD Admit Phy: Ordering Phy: Allan Thorpe M.D. cc: ~ XR chest 1V portable CLINICAL HISTORY: respiratory distress dyspnea COMPARISON STUDY: 12/18/2019 FINDINGS: Chronic elevation right hemidiaphragm. Platelike atelectasis both lung bases. Minimal upper lungs are clear. IMPRESSION: Platelike atelectasis both lung bases. Mild chronic elevation right hemidiaphragm. ACT 112: Negative or not required by law. The above report was generated using voice recognition software. It may contain grammatical, syntax or spelling errors. Electronically signed by: Alex Ndiaye M.D. 12/26/2019 4:52 PM Dictated: 12/26/191650 Transcribed: 12/26/191650 [facility] [phone] CT Scan Report Patient: RADHA CANCINO Date: 12/26/19 MR#: [id number]: [id number] [facility] Acct ID:[id number]: Date: [address] [place] [address] Zip: [place] [id number] Age: 74Location: ED Sex: M Room/Bed: Att Phy:Diagnosis: RESP. DISTRESS Livia Phy: Kimani Meier, ARCADIONPService Date: 12/26/19 Fam Phy:Interpreting Phy: Alex Ndiaye MD Admit Phy: Ordering Phy: Allan Thorpe M.D. cc: ~ Study: CT angiogram abdomen and pelvis history: Bleeding. Pain. COMPARISON: 12/18/2019 FINDINGS: Consolidative right basilar infiltrate. Patchy left basilar infiltrate. Configuration the liver is unremarkable. Spleen enhances uniformly. There is a moderate amount of hemoperitoneum. This is slightly improved. The left rectus sheath hematoma has diminished in prominence with a maximum current dimension 10 x 5 cm. Bowel pattern remains nonobstructive. There is moderate amount of free fluid and/or blood within the the pelvis which is similar as compared to the prior study. There is a ventral hernia containing fat exclusively. , Aorta as well as iliac vasculature shows moderate atherosclerotic change. There is no evidence for aneurysm or dissection. IMPRESSION: 1. Interval development of a consolidative right lower lobe infiltrate. 2. Interval development of a patchy left basilar infiltrate. 3. Moderate improvement of a left rectus sheath hematoma. 4. Hemoperitoneum considered stable to perhaps slightly improved compared to the prior study. 5. No significant abnormality of the abdominal and pelvic arterial vasculature. Electronically signed by: Alex Ndiaye M.D. 12/26/2019 6:33 PM Dictated: 12/26/191827 Transcribed: 12/26/191827 [facility] [place] [phone] CT Scan Report Patient: RADHA CANCINO Date: 12/26/19 MR#: [id number]: [id number] [facility] Acct ID:[id number]: Date: 1945[facility] Zip: [place] [address] Age: 74Location: ED Sex: M Room/Bed: Att Phy:Diagnosis: RESP. DISTRESS Livia Phy: Kimani Meier, ARCADIONPService Date: 12/26/19 [facility] Phy:Interpreting Phy: Alex Ndiaye MD Admit Phy: Ordering Phy: Allan Thorpe M.D. cc: ~ CT angio chest PE protocol CT DOSE: HISTORY: PE, resp failure, hypoxia TECHNIQUE: Multiaxial CT images of the chest were performed following the intravenous administration of contrast to evaluate the pulmonary arteries. Maximal intensity projection images were also obtained. A dose lowering technique was utilized adhering to the principles of ALARA. COMPARISON STUDY: 12/13/2019 FINDINGS: Pulmonary vasculature enhances appropriately. No major central pulmonary embolus is appreciated. The distal pulmonary arterial structures are not well defined due to respiratory motion. Interval development of a consolidative right lower lobe infiltrate. Reticular nodular type infiltrative changes of the left lower lobe and to a lesser extent lingula. IMPRESSION: 1. No evidence for a major central pulmonary embolus. 2. Consolidative right lower lobe infiltrate. 3. Patchy parenchymal/interstitial infiltrative change left lower lobe and to a lesser extent lingula. ACT 112: Negative or not required by law. The above report was generated using voice recognition software. It may contain grammatical, syntax or spelling errors. Electronically signed by: Alex Ndiaye M.D. 12/26/2019 6:27 PM Dictated: 12/26/191824 Transcribed: 12/26/191824 Code Status & VTE Plan Code Status Full code VTE Prophylaxis Plan VTE Prophylaxis will be ordered: Yes PG Care Time/CCT Total # of Minutes Spent Total Time Spent with Patient: Total time spent is greater than 50% in coordination of care (as documented) at patient's floor/unit and/or counseling patient: Coding Level of Care Code 85538 Initial Inpt Care Lvl 3 Diagnoses Acute respiratory failure with hypoxia J96.01 Multifocal pneumonia J18.9 COPD (chronic obstructive pulmonary disease) J44.1 COPD type: COPD with acute exacerbation Metabolic encephalopathy G93.41 CAD (coronary artery disease) I25.10 Coronary Disease-Associated Artery/Lesion type: [place] artery [place] vs. transplanted heart: [place] heart Associated angina: without angina Paroxysmal atrial fibrillation I48.0 Pulmonary embolism I26.93 Pulmonary embolism type: single subsegmental (without acute cor pulmonale) Diabetes mellitus E11.9 Diabetes mellitus type: type 2 Diabetes mellitus usp insulin use: without usp use Diabetes mellitus complication status: without complication BPH (benign prostatic hyperplasia) N40.0 Lower urinary tract symptom presence: symptoms absent Abnormal LFTs R94.5 (1) BPH (benign prostatic hyperplasia) Lower urinary tract symptom presence: symptoms absent Qualified Code(s): N40.0 - Benign prostatic hyperplasia without lower urinary tract symptoms (2) Pulmonary embolism Pulmonary embolism type: single subsegmental (without acute cor pulmonale) Qualified Code(s): I26.93 - Single subsegmental pulmonary embolism without acute cor pulmonale (3) Diabetes mellitus Diabetes mellitus type: type 2 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 transplanted heart: [place] heart Associated angina: without angina Qualified Code(s): I25.10 - Atherosclerotic heart disease of [place] coronary artery without angina pectoris (5) COPD (chronic obstructive pulmonary disease) COPD type: COPD with acute exacerbation Qualified Code(s): J44.1 - Chronic obstructive pulmonary disease with (acute) exacerbation
[2019-12-26] MEDS: PIPERACILLIN/TAZOBACTAM 3.375 GM in DEXTROSE 5% 100 ML IV SCH (23:52)
[2019-12-27] MEDS: methylPREDNISolone 40 MG in SYRINGE 0 ML IV SCH ×3 (05:47→20:11)
--- NOTE | 2019-12-27 05:59 | Ultrasound Report ---
US extremity nonvascular CLINICAL HISTORY: ecchymosis right leg pain. Edema. COMPARISON STUDY: No previous studies for comparison. FINDINGS: Complex popliteal cyst posterior to the right knee measuring 4 x 3 x 2 cm. IMPRESSION: Complex popliteal cyst posterior to the right knee. ACT 112: Negative or not required by law. The above report was generated using voice recognition software. It may contain grammatical, syntax or spelling errors. Electronically signed by: Alex Ndiaye M.D. 12/27/2019 5:57 AM
[2019-12-27] MEDS: ALBUT/IPRATROP 3MG/0.5MG NEB 3 ML VIAL NEB SCH ×4 (07:34→19:01)
[2019-12-27] MEDS: INSULIN ASPART 100 UNITS/ML 3 ML PEN SC SCH ×3 (07:56→18:45)
[2019-12-27] MEDS: PIPERACILLIN/TAZOBACTAM 3.375 GM in DEXTROSE 5% 100 ML IV SCH ×2 (07:59→17:12)
[2019-12-27] MEDS ORDERED: VANCOMYCIN HCL 1,500 MG in SODIUM CHLORIDE 0.9% 500 ML IV STA (08:16)
--- NOTE | 2019-12-27 08:26 | Pharmacy Report ---
Pharmacy Abx Initial Consult - Date of Service December 27, 2019 - Pharmacy Dosing Scope Date of Consult: 12/26/2019 Consultation requested by: Dr. Moss Pharmacy is consulted to initiate Vanomycin + Zosyn IV dosing therapy, order appropriate labs and adjust drug dose/frequency. - Subjective The patient is a 74 year old M admitted on 12/26/19 20:53. - Objective Height: 5 ft 10 in Weight: 101.6 kg Vital Signs (Past 12hrs): Vital Signs Temp Pulse Pulse Resp BP BP Pulse Ox 12/27/19 07:47 37.2 C 109 H 24 164/80 H 98 12/27/19 07:44 105 H 24 97 12/27/19 07:42 97 H 24 106 H 12/27/19 04:08 37.9 C H 93 H 22 154/81 H 96 12/27/19 03:51 107 H 21 97 12/27/19 00:29 100 H 12/26/19 23:08 37 C 111 H 22 139/74 97 12/26/19 22:11 100 H 40 H 100 12/26/19 21:43 37.7 C H 101 H 40 H 155/86 H 97 12/26/19 21:19 98 H 47 H 126/88 98 12/26/19 21:08 97 H 48 H 99 12/26/19 21:00 92 H 48 H 113/66 93 12/26/19 20:45 106 H 47 H 151/78 H 98 12/26/19 20:30 110 H 160/99 H 98 Lab Results (24hrs): Laboratory Tests (24 Hours) 12/26/19 12/26/19 12/26/19 16:50 16:50 16:50 WBC 25.92 H Neut # (Auto) 23.39 H Creatinine 0.87 Est Cr Clr Drug Dosing 86.1 Procalcitonin 0.34 Micro Results: 12/27/19 Unknown MRSA Surveillance Culture - Pending Nasal 12/26/19 18:27 Aerobic Blood Culture - Pending Blood Anaerobic Blood Culture - Pending 12/26/19 16:50 Aerobic Blood Culture - Pending Blood Anaerobic Blood Culture - Pending - Risk Factors for Resistance * Hospitalization for 48 hours or more within the past 90 days - Assessment & Plan Assessment 74 year old M admitted on 12/26/2019 from [facility] secondary to acute respiratory failure with hypoxia * PMHx significant for COPD, DM * Patient recent admitted from 12/12-12/18 at [facility] for acute ischemic stroke, then transferred to [facility] where he was intubated and discharged to [facility] on 12/25 * reports patient may have aspirated ice cream at [facility] * Chest CT shows "consolidative right lower lobe infiltrate...patchy parenchymal/interstitial infiltrative change left lower lobe" * Patient is febrile at 37.9C, tachycardic, WBCs ~26K, Renal fxn appears to be at baseline, Lactic acid 2.0, PCT 0.34 Plan Vancomycin + Zosyn for treatment of possible pneumonia Vancomycin IV * Estimated PK Parameters: Vd 0.6 L/kg, Aram 0.076 hr-1, t1/2 ~9 hrs * Loading dose: 2000 mg (~20 mg/kg) * Maintenance dose: 1500 mg IV (~15 mg/kg) every 12 hours * Goal trough: 15 to 20 mcg/mL * Trough level ordered for 12/28/2019 at 0730 Piperacillin/tazobactam * 4.5 g bolus administered over 30 minutes, then 3.375 g IV extended infusion every 8 hours for CrCl greater than 20 mL/min Pharmacy will continue to follow and will adjust dose/frequency as necessary. Thank you.
[2019-12-27] MEDS: ALBUMIN 25% 50 ML with FUROSEMIDE 40 MG IV SCH (11:14)
[2019-12-27] MEDS ORDERED: FAMOTIDINE 20 MG TAB PO SCH (14:00)
[2019-12-27] MEDS ORDERED: PHARMACY GLYCEMIC MGMT CONSULT PRN (14:11)
[2019-12-27 14:13] LABS: Hematocrit (blood only) 29.7 % (42-52); Hemoglobin 9.5 g/dL (14.0-18.0); Mean Corpuscular Hemoglobin 28.4 pg (25-34); Mean Corpuscular Volume 88.9 fL (80-100); Mean Platelet Volume 10.3 fL (7.4-10.4); Platelet Count 285 K/uL (130-400); RDW Coefficient of Variation 17.1 % (11.5-14.5); RDW Standard Deviation 54.7 fL (36.4-46.3); Red Blood Count 3.34 M/uL (4.7-6.1); White Blood Count 24.45 K/uL (4.8-10.8)
[2019-12-27 14:15] LABS: Base Excess ABG 5.1 mEq/L (-9-1.8); HCO3 ABG 29 mmol/L (19-24); PCO2 ABG 37 mmHg (35-46); PO2 ABG 84 mmHg (80-95)
--- NOTE | 2019-12-27 14:15 | Pharmacy Report ---
Glycemic Control Consultation - Date of Service December 27, 2019 - Scope Scope: Glycemic Pharmacist consulted by Dr Queen on 12/27/2019 for glycemic control and to write orders per [facility] inpatient glycemic control protocol - Objective Weight: 101.6 kg Accuchecks BSG (last 24hrs): 12/26/19 12/26/19 12/27/19 16:50 23:07 07:15 Glucose 254 H POC Glucose 178 H 232 H 12/27/19 12:17 Glucose POC Glucose 213 H Laboratory Data (last 24hrs): 12/26/19 16:50 Potassium 3.5 Carbon Dioxide 28 Anion Gap 4.0 Creatinine 0.87 Est Cr Clr Drug Dosing 86.1 - Recent Pertinent Medications Outpatient Anti-diabetic Regimen: * N/A * A1c = 6.1 % 12/13/2019 Risk Factors for Insulin Resistance: * Steroids: Solu-Medrol 40 mg IV q8 hours * Infection: aspiration pneumonia? on vanc and Zosyn * Diet: NPO - Assessment & Plan Assessment & Plan: ASSESSMENT: * Mr Lassietr is a 74 y/o M with a PMH of prediabetes per HbA1C who presents with possible aspiration pneumonia. Blood sugars are elevated due to steroids. * Blood sugars today are 232-213 mg/dL. * Continue current Novolog as it is weight-based stress of 2. * Give Lantus 15 units x 1. Plan ongoing Lantus based upon response. Considered NPH but concerned about peak effects in NPO patient. PLAN FOR INPATIENT GLYCEMIC CONTROL: * Basal insulin * Lantus 15 units SQ x 1 * Bolus insulin * NovoLog per scale ACHS or Q6hrs while NPO * Goal Range: Low 120 mg/dL - High 160 mg/dL * Correction Factor: 25 mg/dL/unit * Nutritional / Prandial insulin per carb ratio of 1 unit per 8 grams CHO consumed * Please note that the plan above was derived based on current level of insulin resistance and hospital stress. These recommendations are appropriate for inpatient admission only. Plan of care upon discharge will need to be reassessed to avoid potential outpatient hypo/hyperglycemia. Thank you.
[2019-12-27 14:20] LABS: Allen Test Pos (Pos)
[2019-12-27 14:28] LABS: pH ABG 7.51 (7.35-7.45)
[2019-12-27 14:31] LABS: Albumin Level 2.6 gm/dl (3.4-5.0); BUN Creatinine Ratio 31.2 (10-20); Calcium 8.3 mg/dl (8.5-10.1); Creatinine Clr Calc Pharmacy 77.4 ml/min; Est GFR (African American) 85.6; Est GFR (Non-African American) 73.8; Potassium 3.2 mmol/L (3.5-5.1)
[2019-12-27 14:41] LABS: Basophils # (auto) 0.01 K/uL (0-0.2); Immature Granulocytes # (auto) 0.05 K/uL (0.00-0.02); Immature Granulocytes % (auto) 0.2 %; Lymphocytes # (auto) 0.57 K/uL (1.2-3.4); Lymphocytes % (auto) 2.3 %; Monocytes % (auto) 2.5 %; Neutrophils # (auto) 23.22 K/uL (1.4-6.5)
[2019-12-27 14:43] LABS: Albumin Globulin Ratio 0.7 (0.9-2); Bilirubin,Total 3.5 mg/dl (0.2-1); Globulin 3.5 gm/dl (2.5-4.0); Total Protein 6.1 gm/dl (6.4-8.2)
[2019-12-27] MEDS: LACTATED RINGER'S 1,000 ML IV SCH (15:10)
[2019-12-27] MEDS: POTASSIUM CHLORIDE / WTR 10 MEQ/100 ML PLCT IV SCH ×2 (15:11→16:24)
[2019-12-27 15:59] LABS: INR 1.5 (0.9-1.1); Partial Thromboplastin Ratio 2.1
[2019-12-27 16:08] LABS: Partial Thromboplastin Time 56.4 Seconds (21.0-31.0)
[2019-12-27] MEDS ORDERED: INSULIN GLARGINE SOLOSTAR 100 UNITS/ML 3 ML PEN SC ONE (16:30)
--- NOTE | 2019-12-27 16:55 | Electrocardiogram Report ---
Test Reason : Blood Pressure : / mmHG Vent. Rate : 093 BPM Atrial Rate : 093 BPM P-R Int : 176 ms QRS Dur : 140 ms QT Int : 374 ms P-R-T Axes : 000 092 028 degrees QTc Int : 465 ms Sinus rhythm with Premature supraventricular complexes Right bundle branch block Abnormal ECG When compared with ECG of 17-DEC-2019 16:26, Premature supraventricular complexes are now Present Confirmed by Hakeem Penaloza ([id number]) on 12/27/2019 4:55:07 PM Referred By: REFERRED SELF Confirmed By:Иван Penaloza
[2019-12-27] MEDS: WATER, STERILE FOR INJ 10 ML VIAL PEG SCH ×2 (17:57→21:15)
--- NOTE | 2019-12-27 18:42 | Hospitalist Progress Note ---
Date of Service December 27, 2019 Assessment & Plan (1) Acute respiratory failure with hypoxia: Secondary to suspected aspiration/multifocal PNA and COPD exacerbation PaO2 currently 84 on BiPAP 6L Contributing to metabolic encephalopathy, causing decreased responsiveness HIM request for [place] discharge summary from recent hospitalization (2) Multifocal pneumonia: Suspect aspiration at [facility] in setting of recent stroke and dysarthria/oropharyngeal dysphasia although was cleared to eat at [place]. Initial procalcitonin negative possibly due to taken early in course of illness vs. aspiration pneumonitis without PNA. Will trend in AM to help with decision to possibly stop antibiotics. Continue Zosyn and Vancomycin. Repeat MRSA culture as likely can stop vancomycin if negative. Recent hospitalization increases his risk for this. (3) COPD (chronic obstructive pulmonary disease): Continue solu-medrol, reduce dose to 40mg BID. No significant wheezing on exam today. Continue duonebs QID, if no wheezing tomorrow this can likely be made PRN but would continue steroids for pneumonitis diagnosis. (4) Metabolic encephalopathy: Secondary to aspiration, hypoxia, alkalosis (5) CAD (coronary artery disease): CAD/hypertension Off all medications at present due to NPO status (6) Paroxysmal atrial fibrillation: In NSR at present. Not on anticoagulation secondary to hemoperitoneum and rectus sheath hematoma. (7) Pulmonary embolism: Historical diagnosis earlier this yeat. 3rd order vessel, minor possible PE. Pt developed hematuria after anticoagulation started suggesting an underlying coagulopathy now he also bled also into his abdomen. No PE on more recent CTs. (8) Diabetes mellitus: Pre-diabetic with steroid induced hyperglycemia. BSG ACHS, Novolog correction factor. HbA1C 6.1. Will consult glycemic control for glucose control while on steroids. (9) BPH (benign prostatic hyperplasia): Continue tamsulosin 0.4 mg at bedtime, when able. (10) Metabolic alkalosis: Suspect volume contraction from lasix use given on admission. Cr increased and no pulmonary edema on CT. Suspect dry at present and will give gentle IV hydration overnight. (11) Oropharyngeal dysphagia: Consult dietary - discussed with John and given patient still requiring BiPAP will start tube feeds tomorrow. SLT already consulted but would wait till he is more alert (12) Hemoperitoneum: Moderate amount of free blood in peritoneum from recent hospital stay and PEG tube insertion. Left rectus sheath hematoma improving. Will avoid full anticoagulation at this stage. (13) Sleep apnea: CPAP/BiPAP at night (14) Elevated bilirubin: Suspect elevated from reabsorption of hematoma and hemoperitoneum. No other LFTs elevated to suggest shocked liver or liver pathology. Continue to monitor (15) Prolonged PTT (partial thromboplastin time): Unclear etiology at present, additional elevated INR. Previously elevated on last admission due to heparin use however his says he has not been on anticoagulation since the heparin was discontinued. Concern for DIC (disseminated intravascular coagulation) although Plt currently normal. Will continue to trend with DIC labs in AM. (16) DVT prophylaxis: SCDs Avoiding chemical anticoagulation at present due to large rectus sheath hematoma and recent hemoperitoneum with elevated coags Admission and Anticipated Discharge Date Admission Date: December 26, 2019 Uncertain discharge at this time depending on prognosis. Subjective Patient on BiPAP, unable to give any history. Has been agitated and violent with staff. Currently in soft restraints on upper limbs. He has been sleeping most of today however. I admitted Mr Lassiter 2 weeks ago with a complex subacute history of falling culminating in stroke-like symptoms with slurred speech and left facial droop. He was diagnosed with an ischemic stroke and was placed on IV heparin due to new onset paroxysmal atrial fibrillation as the likely cause of his stroke. He was determined not to be safe for swallowing and had PEG insertion on 12/16. He also had a COPD exacerbation treated with steroids at that time. He unfortunately d eveloped a hemoperitoneum and rectal sheath hematoma while on a heparin drip as a complication of the PEG tube insertion and was transferred to [place] on Dec 18. Notes requested but not available at this time from [place] admission. However I understand he was determined to improve enough to eat there and was discharged to [facility]. Unfortunately within 24 hours he had aspirated ice cream which was suspected to cause his acute shortness of breath and hypoxia requiring his admission here last night. Review of Systems Review of Systems: Unobtainable due to reduced consciousness Physical Exam Constitutional: + ill appearing and + lethargic (wakes to sternal rub); no acute distress Eyes: + anicteric sclerae; normal pupil size ENMT: Ears: no external ear abnormality Nose: no external nose abnormality Mouth: no oral mucosal abnormality (on BiPAP unable to assess) Neck: normal visual inspection, trachea midline, + short neck and + thick neck Respiratory: normal respiratory effort; does not use accessory muscles (on BiPAP), normal respiratory pattern and expiratory phase not prolonged Auscultation: + rhonchi (coarse b/l); breath sounds present, no diminished lung sounds and no wheezes Cardiovascular: Rate/Rhythm: regular rate and regular rhythm Heart Sounds: no murmur Vessels: no JVD Extremities: normal capillary refill and + pedal edema (trace b/l) Gastrointestinal (Abdomen): Inspection/Auscultation: + abdomen distended and normal bowel sounds Percussion/Palpation: abdomen soft; abdomen nontender, no guarding and abdomen not rigid Skin: + ecchymosis (posterior right calf) Neurologic: + not awake Psychiatric: Orientation: + not alert and + not oriented x 3 Results & Data ([facility]) Vital Signs (Past 12 Hours) Vital Signs Temp Pulse Pulse Resp BP Pulse Ox 12/27/19 15:43 37.2 C 75 27 H 142/61 H 97 12/27/19 15:42 70 12/27/19 15:09 72 18 98 12/27/19 11:45 37.3 C 108 H 22 157/77 H 98 12/27/19 11:03 82 22 97 12/27/19 11:01 82 22 97 12/27/19 07:47 37.2 C 109 H 24 164/80 H 98 12/27/19 07:44 105 H 24 97 12/27/19 07:42 97 H 24 106 H PG Care Time/CCT Total # of Minutes Spent Total Time Spent with Patient: Total time spent is greater than 50% in coordination of care (as documented) at patient's floor/unit and/or counseling patient: Coding Level of Care Code 60521 Subseq Hosp Care Lvl 3 Diagnoses Acute respiratory failure with hypoxia J96.01 Multifocal pneumonia J18.9 COPD (chronic obstructive pulmonary disease) J44.1 COPD type: COPD with acute exacerbation Metabolic encephalopathy G93.41 CAD (coronary artery disease) I25.10 Associated angina: without angina Coronary Disease-Associated Artery/Lesion type: [place] artery [place] vs. 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 mining machine helper use Diabetes mellitus type: type 2 BPH (benign prostatic hyperplasia) N40.0 Lower urinary tract symptom presence: symptoms absent Metabolic alkalosis E87.3 Oropharyngeal dysphagia R13.12 Hemoperitoneum K66.1 Sleep apnea G47.33 Sleep apnea type: obstructive Elevated bilirubin R17 Prolonged PTT (partial thromboplastin time) R79.1 DVT prophylaxis Z29.9 (1) BPH (benign prostatic hyperplasia) Lower urinary tract symptom presence: symptoms absent Qualified Code(s): N40.0 - Benign prostatic hyperplasia without lower urinary tract symptoms (2) Sleep apnea Sleep apnea type: obstructive Qualified Code(s): G47.33 - Obstructive sleep apnea (adult) (pediatric) (3) Diabetes mellitus Diabetes mellitus complication status: without complication Diabetes mellitus usp insulin use: without long 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 transplanted heart: [place] heart Qualified Code(s): I25.10 - Atherosclerotic heart disease of [place] coronary artery without angina pectoris (5) COPD (chronic obstructive pulmonary disease) COPD type: COPD with acute exacerbation Qualified Code(s): J44.1 - Chronic obstructive pulmonary disease with (acute) exacerbation (6) Pulmonary embolism Pulmonary embolism type: single subsegmental (without acute cor pulmonale) Qualified Code(s): I26.93 - Single subsegmental pulmonary embolism without acute cor pulmonale
[2019-12-27] MEDS: VANCOMYCIN HCL 1,500 MG in SODIUM CHLORIDE 0.9% 500 ML IV SCH (20:11)
[2019-12-28] MEDS: PIPERACILLIN/TAZOBACTAM 3.375 GM in DEXTROSE 5% 100 ML IV SCH ×3 (00:19→16:21)
[2019-12-28] MEDS: INSULIN ASPART 100 UNITS/ML 3 ML PEN SC SCH ×4 (00:22→18:37)
[2019-12-28] MEDS: WATER, STERILE FOR INJ 10 ML VIAL PEG SCH ×4 (00:30→13:54)
[2019-12-28] MEDS: LACTATED RINGER'S 1,000 ML IV SCH (03:21)
[2019-12-28] MEDS: ALBUT/IPRATROP 3MG/0.5MG NEB 3 ML VIAL NEB SCH ×4 (06:54→19:31)
[2019-12-28] MEDS ORDERED: VANCOMYCIN TROUGH SCH (07:30)
[2019-12-28 07:56] LABS: Hematocrit (blood only) 29.6 % (42-52); Hemoglobin 9.2 g/dL (14.0-18.0); Immature Granulocytes # (auto) 0.06 K/uL (0.00-0.02); Immature Granulocytes % (auto) 0.3 %; Lymphocytes # (auto) 0.46 K/uL (1.2-3.4); Lymphocytes % (auto) 2.3 %; Mean Corpuscular Hemoglobin 28.1 pg (25-34); Mean Corpuscular Hgb Conc 31.1 g/dL (32-36); Mean Corpuscular Volume 90.5 fL (80-100); Mean Platelet Volume 10.3 fL (7.4-10.4); Monocytes # (auto) 0.89 K/uL (0.11-0.59); Monocytes % (auto) 4.4 %; Neutrophils # (auto) 18.89 K/uL (1.4-6.5); Platelet Count 299 K/uL (130-400); RDW Standard Deviation 56.1 fL (36.4-46.3); Red Blood Count 3.27 M/uL (4.7-6.1)
[2019-12-28 08:14] LABS: Fibrinogen 802 mg/dl (184-400); INR 1.5 (0.9-1.1); Partial Thromboplastin Ratio 2.1; Prothrombin Time 14.5 Seconds (9.0-12.0)
[2019-12-28 08:33] LABS: Albumin Level 2.5 gm/dl (3.4-5.0); BUN Creatinine Ratio 39.8 (10-20); Calcium 8.4 mg/dl (8.5-10.1); Creatinine Clr Calc Pharmacy 82.1 ml/min; Est GFR (African American) 92.2; Est GFR (Non-African American) 79.6; Potassium 3.3 mmol/L (3.5-5.1)
[2019-12-28 08:37] LABS: Partial Thromboplastin Time 55.8 Seconds (21.0-31.0)
[2019-12-28 08:38] LABS: D Dimer 2090 ug/L FEU (0-500)
[2019-12-28 08:41] LABS: Bilirubin Direct 0.9 mg/dl (0-0.2); Bilirubin,Total 2.7 mg/dl (0.2-1); Total Protein 5.8 gm/dl (6.4-8.2)
[2019-12-28] MEDS ORDERED: TAMSULOSIN HCL 0.4 MG CAP PEG SCH (09:00)
[2019-12-28] MEDS ORDERED: INSULIN GLARGINE SOLOSTAR 100 UNITS/ML 3 ML PEN SC ONE ×3 (09:00→21:00)
[2019-12-28] MEDS: FAMOTIDINE 20 MG in SYRINGE 3 ML IV SCH (10:15)
[2019-12-28] MEDS: VANCOMYCIN HCL 1,500 MG in SODIUM CHLORIDE 0.9% 500 ML IV SCH (10:15)
[2019-12-28] MEDS: methylPREDNISolone 40 MG in SYRINGE 0 ML IV SCH (10:16)
--- NOTE | 2019-12-28 11:01 | Pharmacy Report ---
Pharmacy Glycemic Short Note 2 - Date of Service December 28, 2019 - Glycemic Short BSG Results (Last 24 hours): 12/27/19 12/27/19 12/27/19 12:17 14:05 18:02 Glucose 207 H POC Glucose 213 H 180 H 12/28/19 12/28/19 12/28/19 00:08 06:18 07:25 Glucose POC Glucose 181 H 205 H 182 H 12/28/19 07:27 Glucose 167 H POC Glucose OUTPATIENT ANTIDIABETIC REGIMEN: * n/a * A1c 6.1% 12/13/19 ASSESSMENT: * Patient received 22 units of insulin yesterday * 15 units of basal insulin * 7 units of prandial/correctional insulin- currently NPO * BSGs ranging 180-232 over the past 24hrs * Risk factors for insulin resistance are decreasing over the past 24hrs * Steroid dosing reduced to methylprednisolone 40 mg IV BID * Infection is being adequately treated * Anticipating insulin regimen will need adjusted for the next 24hrs d/t : * AM Fasting BSG = 182 therefore Basal insulin needs increased, however patient NPO, will give stress of 1 dose this morning * If BSGs do not start trending down, will tighten correction factor PLAN FOR INPATIENT GLYCEMIC CONTROL: * Hold outpatient oral diabetes medications * Basal insulin * Lantus 10 units this AM, evening based on scale/diet status * IF bsg <120 mg/dl hold * if bsg 120-250 mg/dl 10 units * if bsg >250 mg/dl 15 units * Bolus insulin * NovoLog per scale ACHS or Q6hrs while NPO * Goal Range: Low 120 mg/dL - High 160 mg/dL * Correction Factor: 25 mg/dL/unit * Nutritional / Prandial insulin per carb ratio of 1 unit per 8 grams CHO consumed PLAN FOR DISCHARGE: * Recent A1c indicated pre-diabetes, patient should f/u with outpatient provider, encourage lifestyle modifications.
--- NOTE | 2019-12-28 11:23 | Hospitalist Progress Note ---
Date of Service December 28, 2019 Assessment & Plan (1) Acute respiratory failure with hypoxia: 2nd to b/l pneumonia +/- COPD exacerbation. Improved. O2 requirement has decreased since admission. (2) Multifocal pneumonia: b/l. Suspect aspiration. Due to recent hospital stays at [facility] and [facility] need to cover for gram negatives as well. Cont zosyn IV. Stop vanco since MRSA screen negative. day #2 of IV zosyn. (3) COPD (chronic obstructive pulmonary disease): With exacerbation - improved. Continue solumedrol but decrease dose to 30mg BID IV today. Can likely continue to wean tomorrow. Cont nebs, O2, and supportive care. (4) Coagulopathy: PT,INT,PTT all elevated today. He has not had any heparin SC/IV or other anticoagulants in 10+ days. I performed a mixing study today. the PT corrected but the PTT did not. Former - concerning for factor deficiency (vitamin K deficiency). Latter - concerning for inhibitor (lupus anticoagulant, etc). If a lupus anticoagulant is truly present could this partially explain his recent PE, stroke, bleeding tendencies on xarelto/heparin, etc? Send lupus anticoagulant in am. Vitamin K 5mg IV x 1 now[address] I spoke with Dr Whitt from heme/onc who will consult in the am. Repeat coags in am. DIC work-up was negative. (5) Metabolic encephalopathy: 2nd hypoxia, illness, etc. IMPROVED. mental status is similar to when I had him during his previous stay. (6) CAD (coronary artery disease): CAD/hypertension All PO medications at present are on hold had been taking statin, aspirin prior to stroke aspirin not option due to recent hemoperitoneum could rseume statin via PEG tomorrow (7) Paroxysmal atrial fibrillation: In NSR at present. Not on anticoagulation secondary to hemoperitoneum and rectus sheath hematoma. A.fib was discovered at time of admission during previous hospitalization for acute stroke. converted quickly from PAF back to NSR and remained in NSR during the rest of his previous stay. No PAF overnight. NOT anticoagulation candidate due to hemoperitoneum. (8) Pulmonary embolism: Found incidentally on outpatient CTA chest done at [facility] in [place] in November. Was 3rd order vessel. Pt developed hematuria after anticoagulation started (xarelto) suggesting an underlying coagulopathy. Xarelto was stopped after 3-4 days in November. Repeat CTA chest here in December did NOT show any PEs. Dopplers of legs neg for DVT at [facility] and also [facility]. See discussion above re: coagulopathy. (9) Diabetes mellitus: Pre-diabetic with steroid induced hyperglycemia. BSG ACHS, Novolog correction factor. HbA1C 6.1%. Pharmacy providing glycemic control. (10) BPH (benign prostatic hyperplasia): resume tamsulosin 0.4 mg at bedtime via PEG (11) Oropharyngeal dysphagia: 2nd to recent stroke. s/p PEG placement previous admission. complicated by severe acute blood loss anemia 2nd to hemoperitoneum. ultimately developed hypotension from such requiring ICU transfer and then ultimately transfer to [facility]. [facility] did NOT have to perform surgery to stop the bleeding; stopped spontaneously. speech reconsulted -- they plan video swallow test tomorrow on 12/29. apparently was given the OK at [facility] to swallow but we cannot find any video swallow test from [facility]. either way resume tube feedings - agent producer consulted for assistance - and video swallow tomorrow. 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 that was the reason for that hospital stay. presumed embolic since at time of admission he was found to be in new-onset a.fib. cannot rule out ischemic but less likely. following PEG tube placement he was resumed on heparin drip about 6 hours post- op and unfortunately developed severe hemoperitoneum and rectus sheath hematoma. heparin and all antiplatelet agents were stopped immediately. (13) Hemoperitoneum: in the setting of PEG tube insertion during previous hospitalization. also had Left rectus sheath hematoma. he had been receiving IV heparin for paroxysmal a.fib and heparin was immediately stopped upon discovery of this intraperitoneal blood during prior stay. he required transfer to [facility] for concerns he would need IR for embolization of bleed; this was not needed however. CT this admission shows stable amount of hemoperitoneum. H/H acceptable. CBC in am. (14) Sleep apnea: CPAP/BiPAP at night (15) Elevated bilirubin: 2nd to lysis of red cells from hemoperitoneum? either way total bili is trending down. no signs of hemolytic disease. other LFTs stable. (16) Hypokalemia: place KCL in IV fluids also place on KCL via PEG BMP in am (17) Knee pain: RIGHT severe OA voltaren gel qid (18) PEG (percutaneous endoscopic gastrostomy) status: agent producer consult for tube feeding recommendations once tube feeds are started will lower IV fluid rate on IR (19) DVT prophylaxis: SCDs Avoiding chemical anticoagulation at present due to large rectus sheath hematoma and recent hemoperitoneum with coagulopathy family extensively updated at bedside tonight cont PT, OT, speech Admission and Anticipated Discharge Date Admission Date: December 26, 2019 Subjective patient awoke easily when I called his name. he knew he was in the hospital, stating he was at "[facility]." he knew he had been at "another hospital" [[facility]] but couldn't recall any details. c/o being thirsty. denied any abd pain. Mild cough only. no distress. tele overnight - NSR. Review of Systems Constitutional: no fever Respiratory: no dyspnea Cardiovascular: no chest pain Gastrointestinal: no abdominal pain, no nausea and no vomiting Physical Exam Constitutional: + ill appearing and + obese; no acute distress ENMT: Mouth: + dry oral mucous membranes Respiratory: Auscultation: + diminished lung sounds (bases); no wheezes Cardiovascular: Rate/Rhythm: regular rate and regular rhythm Heart Sounds: normal S1 and normal S2; no murmur Vessels: posterior tibial pulses present and dorsalis pedis pulses present; no JVD Extremities: no pedal edema Gastrointestinal (Abdomen): Inspection/Auscultation: + abdomen distended Percussion/Palpation: + abdomen tender (around umbilicus) and + hernia (umbilical - reducible; minimal ecchymoses around the hernia ); no hepatosplenomegaly PEG tube site clean Musculoskeletal: mild ecchymoses about the right knee Neurologic: mild left facial droop; strength LUE 5/5; LLE 4-5/5; right arm/leg 5/5 strength; dysarthria present Results & Data ([facility]) Vital Signs (Past 12 Hours) Vital Signs Temp Pulse Pulse Pulse Resp BP BP 12/28/19 07:26 36.8 C 62 24 139/70 12/28/19 06:55 64 62 28 H 12/28/19 05:17 36.9 C 58 L 20 138/65 12/28/19 03:34 64 24 12/27/19 23:24 70 26 H Pulse Ox 12/28/19 07:26 100 12/28/19 06:55 99 12/28/19 05:17 99 12/28/19 03:34 96 12/27/19 23:24 95 Laboratory Results Laboratory Results - last 24 hr 12/27/19 12/27/19 12/27/19 12:17 14:05 14:05 WBC 24.45 H RBC 3.34 L Hgb 9.5 L Hct 29.7 L MCV 88.9 MCH 28.4 MCHC 32.0 RDW Std Deviation 54.7 H RDW Coeff of [place] 17.1 H Plt Count 285 MPV 10.3 Immature Gran % (Auto) 0.2 Neut % (Auto) 95.0 Lymph % (Auto) 2.3 Door % (Auto) 2.5 Eos % (Auto) 0.0 Baso % (Auto) 0.0 Immature Gran # (Auto) 0.05 H Neut # (Auto) 23.22 H Lymph # (Auto) 0.57 L Door # (Auto) 0.60 H Eos # (Auto) 0.00 Baso # (Auto) 0.01 PT INR APTT PTT Ratio Fibrinogen Fibrin Degrad Products D-Dimer ABG pH 7.51 H* ABG pCO2 37 ABG pO2 84 ABG HCO3 29 H ABG O2 Saturation 97.0 H ABG Base Excess 5.1 H Arben Test Pos Barometric Pressure 733.1 Oxygen Given 6L Sodium Potassium Chloride Carbon Dioxide Anion Gap BUN Creatinine Est Cr Clr Drug Dosing Est GFR ( Amer) Est GFR (Non-Af Amer) BUN/Creatinine Ratio Glucose POC Glucose 213 H Calcium Total Bilirubin Direct Bilirubin AST ALT Alkaline Phosphatase Total Protein Albumin Globulin Albumin/Globulin Ratio Nasal Screen MRSA (PCR) Vancomycin Trough 12/27/19 12/27/19 12/27/19 14:05 14:05 15:15 WBC RBC Hgb Hct MCV MCH MCHC RDW Std Deviation RDW Coeff of [place] Plt Count MPV Immature Gran % (Auto) Neut % (Auto) Lymph % (Auto) Door % (Auto) Eos % (Auto) Baso % (Auto) Immature Gran # (Auto) Neut # (Auto) Lymph # (Auto) Door # (Auto) Eos # (Auto) Baso # (Auto) PT Cancelled INR Cancelled APTT Cancelled PTT Ratio Cancelled Fibrinogen Fibrin Degrad Products D-Dimer ABG pH ABG pCO2 ABG pO2 ABG HCO3 ABG O2 Saturation ABG Base Excess Arben Test Barometric Pressure Oxygen Given Sodium 144 Potassium 3.2 L Chloride 107 Carbon Dioxide 29 Anion Gap 8.0 BUN 31 H Creatinine 1.00 Est Cr Clr Drug Dosing 77.4 Est GFR ( Amer) 85.6 Est GFR (Non-Af Amer) 73.8 BUN/Creatinine Ratio 31.2 H Glucose 207 H POC Glucose Calcium 8.3 L Total Bilirubin 3.5 H Direct Bilirubin AST 19 ALT 72 Alkaline Phosphatase 74 Total Protein 6.1 L Albumin 2.6 L Globulin 3.5 Albumin/Globulin Ratio 0.7 L Nasal Screen MRSA (PCR) Uninterpretable Vancomycin Trough 12/27/19 12/27/19 12/28/19 15:26 18:02 00:08 WBC RBC Hgb Hct MCV MCH MCHC RDW Std Deviation RDW Coeff of [place] Plt Count MPV Immature Gran % (Auto) Neut % (Auto) Lymph % (Auto) Door % (Auto) Eos % (Auto) Baso % (Auto) Immature Gran # (Auto) Neut # (Auto) Lymph # (Auto) Door # (Auto) Eos # (Auto) Baso # (Auto) PT 15.0 H INR 1.5 H APTT 56.4 H* PTT Ratio 2.1 Fibrinogen Fibrin Degrad Products D-Dimer ABG pH ABG pCO2 ABG pO2 ABG HCO3 ABG O2 Saturation ABG Base Excess Arben Test Barometric Pressure Oxygen Given Sodium Potassium Chloride Carbon Dioxide Anion Gap BUN Creatinine Est Cr Clr Drug Dosing Est GFR ( Amer) Est GFR (Non-Af Amer) BUN/Creatinine Ratio Glucose POC Glucose 180 H 181 H Calcium Total Bilirubin Direct Bilirubin AST ALT Alkaline Phosphatase Total Protein Albumin Globulin Albumin/Globulin Ratio Nasal Screen MRSA (PCR) Vancomycin Trough 12/28/19 12/28/19 12/28/19 06:18 07:25 07:27 WBC RBC Hgb Hct MCV MCH MCHC RDW Std Deviation RDW Coeff of [place] Plt Count MPV Immature Gran % (Auto) Neut % (Auto) Lymph % (Auto) Door % (Auto) Eos % (Auto) Baso % (Auto) Immature Gran # (Auto) Neut # (Auto) Lymph # (Auto) Door # (Auto) Eos # (Auto) Baso # (Auto) PT INR APTT PTT Ratio Fibrinogen Fibrin Degrad Products D-Dimer ABG pH ABG pCO2 ABG pO2 ABG HCO3 ABG O2 Saturation ABG Base Excess Arben Test Barometric Pressure Oxygen Given Sodium Potassium Chloride Carbon Dioxide Anion Gap BUN Creatinine Est Cr Clr Drug Dosing Est GFR ( Amer) Est GFR (Non-Af Amer) BUN/Creatinine Ratio Glucose POC Glucose 205 H 182 H Calcium Total Bilirubin Direct Bilirubin AST ALT Alkaline Phosphatase Total Protein Albumin Globulin Albumin/Globulin Ratio Nasal Screen MRSA (PCR) Vancomycin Trough 13.7 12/28/19 12/28/19 12/28/19 07:27 07:27 07:27 WBC 20.30 H RBC 3.27 L Hgb 9.2 L Hct 29.6 L MCV 90.5 MCH 28.1 MCHC 31.1 L RDW Std Deviation 56.1 H RDW Coeff of [place] 17.0 H Plt Count 299 MPV 10.3 Immature Gran % (Auto) 0.3 Neut % (Auto) 93.0 Lymph % (Auto) 2.3 Door % (Auto) 4.4 Eos % (Auto) 0.0 Baso % (Auto) 0.0 Immature Gran # (Auto) 0.06 H Neut # (Auto) 18.89 H Lymph # (Auto) 0.46 L Door # (Auto) 0.89 H Eos # (Auto) 0.00 Baso # (Auto) 0.00 PT 14.5 H INR 1.5 H APTT 55.8 H* PTT Ratio 2.1 Fibrinogen 802 H Fibrin Degrad Products D-Dimer 2090 H* ABG pH ABG pCO2 ABG pO2 ABG HCO3 ABG O2 Saturation ABG Base Excess Arben Test Barometric Pressure Oxygen Given Sodium 143 Potassium 3.3 L Chloride 109 H Carbon Dioxide 30 Anion Gap 5.0 BUN 37 H Creatinine 0.94 Est Cr Clr Drug Dosing 82.1 Est GFR ( Amer) 92.2 Est GFR (Non-Af Amer) 79.6 BUN/Creatinine Ratio 39.8 H Glucose 167 H POC Glucose Calcium 8.4 L Total Bilirubin 2.7 H Direct Bilirubin 0.9 H AST 15 ALT 58 Alkaline Phosphatase 71 Total Protein 5.8 L Albumin 2.5 L Globulin Albumin/Globulin Ratio Nasal Screen MRSA (PCR) Vancomycin Trough 12/28/19 12/28/19 07:27 11:17 WBC RBC Hgb Hct MCV MCH MCHC RDW Std Deviation RDW Coeff of [place] Plt Count MPV Immature Gran % (Auto) Neut % (Auto) Lymph % (Auto) Door % (Auto) Eos % (Auto) Baso % (Auto) Immature Gran # (Auto) Neut # (Auto) Lymph # (Auto) Door # (Auto) Eos # (Auto) Baso # (Auto) PT INR APTT PTT Ratio Fibrinogen Fibrin Degrad Products 10-40 H D-Dimer ABG pH ABG pCO2 ABG pO2 ABG HCO3 ABG O2 Saturation ABG Base Excess Arben Test Barometric Pressure Oxygen Given Sodium Potassium Chloride Carbon Dioxide Anion Gap BUN Creatinine Est Cr Clr Drug Dosing Est GFR ( Amer) Est GFR (Non-Af Amer) BUN/Creatinine Ratio Glucose POC Glucose 151 H Calcium Total Bilirubin Direct Bilirubin AST ALT Alkaline Phosphatase Total Protein Albumin Globulin Albumin/Globulin Ratio Nasal Screen MRSA (PCR) Vancomycin Trough PG Care Time/CCT Total # of Minutes Spent Total Time Spent with Patient: Total time spent is greater than 50% in coordination of care (as documented) at patient's floor/unit and/or counseling patient: Coding Level of Care Code 88581 Subseq Hosp Care Lvl 3 Diagnoses Acute respiratory failure with hypoxia J96.01 Multifocal pneumonia J18.9 COPD (chronic obstructive pulmonary disease) J44.1 COPD type: COPD with acute exacerbation Coagulopathy D68.9 Metabolic encephalopathy G93.41 CAD (coronary artery disease) I25.10 Associated angina: without angina Coronary Disease-Associated Artery/Lesion type: [place] artery [place] vs. transplanted heart: [place] heart Paroxysmal atrial fibrillation I48.0 Pulmonary embolism I26.93 Pulmonary embolism type: single subsegmental (without acute cor pulmonale) Diabetes mellitus E11.9 Diabetes mellitus complication status: without complication Diabetes mellitus mcc insulin use: without mcc use Diabetes mellitus type: type 2 BPH (benign prostatic hyperplasia) N40.0 Lower urinary tract symptom presence: symptoms absent Oropharyngeal dysphagia R13.12 Acute embolic stroke I63.9 Hemoperitoneum K66.1 Sleep apnea G47.33 Sleep apnea type: obstructive Elevated bilirubin R17 Hypokalemia E87.6 Knee pain M25.561; G89.29 Chronicity: chronic Laterality: right PEG (percutaneous endoscopic gastrostomy) status Z93.1 DVT prophylaxis Z29.9 (1) BPH (benign prostatic hyperplasia) Lower urinary tract symptom presence: symptoms absent Qualified Code(s): N40.0 - Benign prostatic hyperplasia without lower urinary tract symptoms (2) Sleep apnea Sleep apnea type: obstructive Qualified Code(s): G47.33 - Obstructive sleep apnea (adult) (pediatric) (3) Diabetes mellitus Diabetes mellitus complication status: without complication Diabetes mellitus mcc insulin use: without intermediate card tender use Diabetes mellitus type: type 2 Qualified Code(s): E11.9 - Type 2 diabetes mellitus without complications (4) CAD (coronary artery disease) Associated angina: without angina Coronary Disease-Associated Artery/Lesion type: [place] artery [place] vs. transplanted heart: [place] heart Qualified Code(s): I25.10 - Atherosclerotic heart disease of [place] coronary artery without angina pectoris (5) COPD (chronic obstructive pulmonary disease) COPD type: COPD with acute exacerbation Qualified Code(s): J44.1 - Chronic obstructive pulmonary disease with (acute) exacerbation (6) Pulmonary embolism Pulmonary embolism type: single subsegmental (without acute cor pulmonale) Qualified Code(s): I26.93 - Single subsegmental pulmonary embolism without acute cor pulmonale (7) Knee pain Chronicity: chronic Laterality: right Qualified Code(s): M25.561 - Pain in right knee; G89.29 - Other chronic pain
[2019-12-28 12:19] LABS: INR 1.4 (0.9-1.1); Prothrombin Time 14.1 Seconds (9.0-12.0)
[2019-12-28 13:32] LABS: Partial Thromboplastin Time 55.2 Seconds (21.0-31.0)
[2019-12-28] MEDS: POTASSIUM CHLORIDE 20 MEQ in LACTATED RINGER'S 1,000 ML IV SCH (13:54)
[2019-12-28 14:52] LABS: PTT Mixing Study Interpretatio APTT Not Corrected
[2019-12-28] MEDS: PEPTAMEN INTENSE VHP 1.0 CAL 1,000 ML BAG PEG SCH (16:21)
[2019-12-28] MEDS ORDERED: PHYTONADIONE 5 MG in SODIUM CHLORIDE 0.9% 50 ML IV ONE (17:00)
[2019-12-28] MEDS: DICLOFENAC SOD 1% GEL 100 GM TUBE EXT SCH ×2 (18:30→21:09)
[2019-12-28] MEDS ORDERED: POTASSIUM CHLORIDE 20 MEQ TABCR PO SCH (21:00)
[2019-12-28] MEDS: methylPREDNISolone 30 MG in SYRINGE 0 ML IV SCH (21:09)
[2019-12-28] MEDS: TERAZOSIN HCL 1 MG CAP PO SCH (21:09)
[2019-12-28] MEDS: POTASSIUM CHLORIDE 20 MEQ/15 ML UDC PEG SCH (21:09)
[2019-12-29] MEDS: PIPERACILLIN/TAZOBACTAM 3.375 GM in DEXTROSE 5% 100 ML IV SCH ×3 (00:09→16:53)
[2019-12-29] MEDS: INSULIN ASPART 100 UNITS/ML 3 ML PEN SC SCH ×5 (00:12→21:45)
[2019-12-29] MEDS: POTASSIUM CHLORIDE 20 MEQ in LACTATED RINGER'S 1,000 ML IV SCH (05:07)
[2019-12-29 06:25] LABS: Hematocrit (blood only) 29.2 % (42-52); Hemoglobin 9.2 g/dL (14.0-18.0); Mean Corpuscular Hemoglobin 28.5 pg (25-34); Mean Corpuscular Hgb Conc 31.5 g/dL (32-36); Mean Corpuscular Volume 90.4 fL (80-100); Mean Platelet Volume 10.5 fL (7.4-10.4); Platelet Count 309 K/uL (130-400); RDW Standard Deviation 55.8 fL (36.4-46.3); Red Blood Count 3.23 M/uL (4.7-6.1); White Blood Count 16.71 K/uL (4.8-10.8)
[2019-12-29 06:49] LABS: INR 1.1 (0.9-1.1); Partial Thromboplastin Ratio 1.8; Prothrombin Time 11.6 Seconds (9.0-12.0)
[2019-12-29 06:56] LABS: Partial Thromboplastin Time 49.2 Seconds (21.0-31.0)
[2019-12-29 07:01] LABS: BUN Creatinine Ratio 43.8 (10-20); Creatinine Clr Calc Pharmacy 87.9 ml/min; Est GFR (African American) 98.1; Est GFR (Non-African American) 84.6; Potassium 4.4 mmol/L (3.5-5.1)
[2019-12-29] MEDS: ALBUT/IPRATROP 3MG/0.5MG NEB 3 ML VIAL NEB SCH ×4 (07:19→19:03)
[2019-12-29] MEDS: FAMOTIDINE 20 MG in SYRINGE 3 ML IV SCH (07:54)
[2019-12-29] MEDS: POTASSIUM CHLORIDE 20 MEQ/15 ML UDC PEG SCH (07:54)
[2019-12-29] MEDS: methylPREDNISolone 30 MG in SYRINGE 0 ML IV SCH (07:55)
[2019-12-29] MEDS: DICLOFENAC SOD 1% GEL 100 GM TUBE EXT SCH ×4 (07:56→21:48)
[2019-12-29] MEDS ORDERED: INSULIN GLARGINE SOLOSTAR 100 UNITS/ML 3 ML PEN SC ONE ×2 (09:00→21:00)
--- NOTE | 2019-12-29 10:15 | Consultation Report ---
DATE OF CONSULTATION: 12/29/2019 REASON FOR CONSULTATION: Coagulopathy. HISTORY OF PRESENT ILLNESS: Kei is a pleasant minimally conversant 74-year-old gentleman with multiple comorbid issues including hemoperitoneum, metabolic encephalopathy, oropharyngeal dysphagia, BPH, paroxysmal atrial fibrillation, acute ischemic stroke and pulmonary embolism, was admitted to [facility] on 12/26/2019 with acute respiratory failure and hypoxia. The patient was previously admitted to [facility] on 12/12/2019 to 12/18/2019 for acute ischemic strokes. He was subsequently transferred to [facility] in [place] for further investigation and management. He was then discharged from [place] to [facility] where he was found to be unresponsive, unable to provide any information to recent events. The patient's who had witnessed the event, states that Mr. Lassiter had difficulty speaking and swallowing since his stroke with residual left-sided weakness. He had a PEG tube placed prior to transfer to [place] and required transient mechanical ventilation during the admission as well. Apparently, his became alarmed because his neurologic status had changed, specifically with ability to consume a dietary items. He was subsequently sent back to [facility] and was found to have abnormal coagulation parameters. I was informally contacted by Dr. Deleon and advised him to proceed with PT/PTT mixing study which interestingly corrected at least the PT. This gentleman has not been on anticoagulation for about 10 days. Apparently after having his acute stroke, he was placed on Xarelto, which resulted in gross hematuria. He then developed pulmonary embolism and was placed on heparin resulting in hematoperitoneum. Thus, his PT and PTT done on admission were devoid of any systemic anticoagulation. The PTT portion of the coag profile did not correct indicating a probable inhibitor. Lupus anticoagulant is pending at the time of dictation. PAST MEDICAL HISTORY: As per HPI. PAST SURGICAL HISTORY: Knee surgery, cardiac catheterization. MEDICATIONS: Prior to admission tamsulosin 0.4 mg p.o. daily, Flonase 1 inhalation p.o. daily, aspirin 81 mg p.o. daily, albuterol sulfate 2 puffs inhaled q.4 hours. ALLERGIES: SALMETEROL AND FLUTICASONE. FAMILY HISTORY: Mother suffered from heart disease and hypertension. No family history of cancers. SOCIAL HISTORY: The patient was residing in jail, lives with his significant other and he has a son also lives nearby. He was a reformed cigarette smoker, starting at age 15, including at age 30 was 2-packs per day. Alcohol use is negative. He denies illicit substances otherwise. REVIEW OF SYSTEMS: Unobtainable because of the patient's altered mental status and difficult communication. PHYSICAL EXAMINATION: GENERAL: Very pleasant 74-year-old in supine position, awake, alert and appropriate, in no acute distress. VITAL SIGNS: Temperature 36.4, pulse 80, respiratory rate 20, blood pressure 144/68. SKIN: Warm, dry, noncyanotic without petechia, rash or ecchymosis. HEENT: Head is atraumatic, normocephalic. Eyes: PERRLA, EOMI. Sclerae nonicteric. No conjunctival injection. Nares are patent without rhinorrhea or discharge. Throat is clear. Tongue is midline. Mucous membranes are moist. NECK: Supple without JVD or thyromegaly. LYMPH: No cervical, supraclavicular, axillary or inguinal palpable nodes. HEART: Regular rate and rhythm. No clicks, rubs, murmurs or gallops. LUNGS: Diffuse rhonchi heard in the right hemithorax predominantly. ABDOMEN: Soft, nontender, nondistended, without palpable hepatosplenomegaly. EXTREMITIES: No clubbing, cyanosis, or edema. Strength testing not done, but the patient admits to having a left sided weakness residual from CVA. NEUROLOGIC: He is awake, alert and appears to be oriented. Cranial nerve testing not done. LABORATORY DATA: WBC count 16,710, hemoglobin 9.2, platelet count 309,000. PT 11.6 seconds, INR 1.1, PTT 49.2. Sodium 143, potassium 4.4, chloride 112, carbon dioxide 28, creatinine 0.88, BUN 39. RADIOGRAPHIC DATA: 1. CTA of the chest performed on 12/26/2019 with no evidence of major pulmonary embolism. 2. Consolidative right lower lobe infiltrate. 3. Patchy parenchymal/interstitial infiltrate change, left lower lobe to a lesser extent of the lingula. Lower extremity Doppler study positive for complex popliteal cyst posterior right knee measuring 4 x 3 x 2 cm. IMPRESSION: 1. Coagulopathy prolonged PTT, suspect inhibitor. 2. Acute respiratory failure with hypoxia. 3. Exacerbation of chronic obstructive pulmonary disease. 4. Metabolic encephalopathy. 5. Cerebrovascular accident. 6. Pulmonary embolism. 7. Diabetes mellitus. 8. Benign prostatic hypertrophy. PLAN: I have been asked to evaluate Mr. Lassiter regarding his abnormal coagulation profile. This gentleman has a very complex recent medical history, which includes recent stroke as well as pulmonary embolism. Apparently was anticoagulated on both occasions, initially with direct oral inhibition, which resulted in hematuria and later with heparin after the diagnosis of pulmonary embolism. Heparin administration resulted in hematoperitoneum. The patient has not been on any blood thinner for at least 10 days when his coags were measured on most recent admission. He presented with mildly elevated PT and PTT. Appropriately, the mixed studies were performed revealing correction of PT and INR, but noncorrection of PTT which would suggest PTT inhibition. The most common inhibitor is lupus anticoagulant which was sent and presently pending. The presence of a lupus anticoagulant may answer many questions regarding this gentleman's thrombotic past. Problem remains safely anticoagulating him in the setting of bleeding which sources have yet to be revealed. At some point, may need to consider Rosi filter placement. There also PTT inhibitors which result in bleeding, particularly factor VIII inhibitors. If lupus anticoagulant turns out to be negative, would then proceed with factor VIII/IX inhibitors as possible etiology for prolongation. I have nothing further to add and we will make further recommendations as laboratory results become available. Thank you very much for allowing me to participate in this very interesting case. CRISTIANE
--- NOTE | 2019-12-29 10:40 | Fluoroscopy Report ---
FL video swallow HISTORY: Pneumonia. Assess for aspiration. ? oral intake TECHNIQUE: Video fluoroscopic evaluation of swallowing was performed in the AP and lateral projection s by the speech pathology staff. The patient is fed nectar-thick and thin liquid barium, a barium coa rose wafer, and barium pudding. FLUOROSCOPY TIME: 2.3 minutes. A cine loop submitted. COMPARISON STUDY: None. FINDINGS: There is normal hyoid excursion and epiglottic deflection. There is aspiration identified w ith the thin liquid barium and nectar thick liquid barium. No aspiration identified with the pudding or barium coated cracker. IMPRESSION: 1. Aspiration identified with the thin liquid and nectar thick liquid barium. 2. Please see the speech pathologist report for detailed findings and recommendations. ACT 112: Negative or not required by law. Electronically signed by: Ron Todd M.D. 12/29/2019 10:39 AM
--- NOTE | 2019-12-29 13:32 | Hospitalist Progress Note ---
Date of Service December 29, 2019 Assessment & Plan (1) Multifocal pneumonia: b/l bases. Suspect aspiration. - Due to recent hospital stays at [facility] and [facility] need to cover for gram negatives as well. - Cont zosyn IV. Day 3. - Stop vanco since MRSA screen negative. - Aspirated all thin & nectar thick liquids on VFSS on 12/29. -> Will try honey- thick, but likely also need to use PEG for his free water needs. 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 - Shortness of breath improving. (2) Acute respiratory failure with hypoxia: 2nd to b/l pneumonia +/- COPD exacerbation. Improved. O2 requirement has decreased since admission. (3) COPD (chronic obstructive pulmonary disease): With exacerbation - improved. Cont nebs, O2, and supportive care. - Prednisone 40 mg daily via PEG. (4) Coagulopathy: PT,INT,PTT all elevated today. He has not had any heparin SC/IV or other anticoagulants in 10+ days. Mixing study showed: the PT corrected but the PTT did not. Former - concerning for factor deficiency (vitamin K deficiency). Latter - concerning for inhibitor (lupus anticoagulant, etc). If a lupus anticoagulant is truly present could this partially explain his recent PE, stroke, bleeding tendencies on xarelto/heparin, etc? Send lupus anticoagulant in am. Vitamin K 5mg IV x [address] I spoke with Dr Whitt from heme/onc who will consult in the am. DIC work-up was negative. Coags on 12/29 showed normal INR. PTT still elevated. (5) Metabolic encephalopathy: 2nd hypoxia, illness, etc. IMPROVED. (6) CAD (coronary artery disease): CAD/hypertension All PO medications at present are on hold had been taking statin, aspirin prior to stroke aspirin not option due to recent hemoperitoneum could rseume statin via PEG tomorrow (7) Paroxysmal atrial fibrillation: In NSR at present. Not on anticoagulation secondary to hemoperitoneum and rectus sheath hematoma. A.fib was discovered at time of admission during previous hospitalization for ac remy stroke. converted quickly from PAF back to NSR and remained in NSR during the rest of his previous stay. No PAF overnight. NOT anticoagulation candidate due to hemoperitoneum. Given the hemoperitoneum was a one-time event (from his PEG insertion), he should eventually be on anticoagulation. His CHADs-Vasc is 6, giving him a nearly 10% per year risk of further stroke. At the very least, he should be sent home with a 30-day Holter to see how much afib he has at baseline. (8) Pulmonary embolism: Found incidentally on outpatient CTA chest done at [facility] in [place] in November. Was 3rd order vessel. Pt developed hematuria after anticoagulation started (xarelto) suggesting an underlying coagulopathy. Xarelto was stopped after 3-4 days in November. Repeat CTA chest here in December did NOT show any PEs. Dopplers of legs neg for DVT at [facility] and also [facility]. See discussion above re: coagulopathy. (9) Diabetes mellitus: Pre-diabetic with steroid induced hyperglycemia. BSG ACHS, Novolog correction factor. HbA1C 6.1%. Pharmacy providing glycemic control. (10) BPH (benign prostatic hyperplasia): resume tamsulosin 0.4 mg at bedtime via PEG (11) Oropharyngeal dysphagia: 2nd to recent stroke. s/p PEG placement previous admission. complicated by severe acute blood loss anemia 2nd to hemoperitoneum. ultimately developed hypotension from such requiring ICU transfer and then ultimately transfer to [facility]. [facility] did NOT have to perform surgery to stop the bleeding; stopped spontaneously. speech reconsulted -- they plan video swallow test tomorrow on 12/29. apparently was given the OK at [facility] to swallow but we cannot find any video swallow test from [facility]. either way resume tube feedings - county administrator consulted for assistance - and video swallow tomorrow. 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 that was the reason for that hospital stay. presumed embolic since at time of admission he was found to be in new-onset a.fib. cannot rule out ischemic but less likely. following PEG tube placement he was resumed on heparin drip about 6 hours post- op and unfortunately developed severe hemoperitoneum and rectus sheath hematoma. heparin and all antiplatelet agents were stopped immediately. (13) Hemoperitoneum: in the setting of PEG tube insertion during previous hospitalization. also had Left rectus sheath hematoma. he had been receiving IV heparin for paroxysmal a.fib and heparin was immediately stopped upon discovery of this intraperitoneal blood during prior stay. he required transfer to [facility] for concerns he would need IR for embolization of bleed; this was not needed however. CT this admission shows stable amount of hemoperitoneum. H/H acceptable. CBC in am. (14) Sleep apnea: CPAP/BiPAP at night (15) Elevated bilirubin: 2nd to lysis of red cells from hemoperitoneum? either way total bili is trending down. no signs of hemolytic disease. other LFTs stable. (16) Hypokalemia: place KCL in IV fluids also place on KCL via PEG BMP in am (17) Knee pain: RIGHT severe OA voltaren gel qid (18) PEG (percutaneous endoscopic gastrostomy) status: county administrator consult for tube feeding recommendations once tube feeds are started will lower IV fluid rate on IR (19) DVT prophylaxis: SCDs Avoiding chemical anticoagulation at present due to large rectus sheath hematoma and recent hemoperitoneum with coagulopathy family extensively updated at bedside tonight cont PT, OT, speech Admission and Anticipated Discharge Date Admission Date: December 26, 2019 Subjective Reports for me that he is thirsty. Otherwise, no complaints. Reports no fevers/chills, chest pain, shortness of breath, abdominal pain, nausea, or vomiting. Physical Exam Constitutional: WD/WN, vitals as above Eyes: EOM intact bilaterally; no conjunctival abnormality ENMT: external ear and nose normal, oropharynx normal Neck: trachea midline, no thyromegaly normal visual inspection Respiratory: normal respiratory effort, lungs clear to auscultation no respiratory distress Cardiovascular: RRR, no murmur, no edema Gastrointestinal (Abdomen): Inspection/Auscultation: abdomen normal to inspection; abdomen not distended Musculoskeletal: no cyanosis or clubbing, extremities motor strength 5/5 Skin: no rashes, warm and dry Neurologic: moves all extremities and awake Speech / Cognition: + abnormal speech (Slow speech) Psychiatric: Orientation: alert, oriented to person and cooperative Results & Data ([facility]) Vital Signs (Past 12 Hours) Vital Signs Temp Pulse Pulse Resp BP Pulse Ox 12/29/19 11:36 36.4 C L 101 H 20 152/76 H 93 12/29/19 11:12 67 20 97 12/29/19 08:00 69 12/29/19 07:22 80 20 94 12/29/19 04:03 36.4 C L 77 24 144/68 H 98 12/29/19 03:27 77 25 H 97 PG Care Time/CCT Total # of Minutes Spent Total Time Spent with Patient: Total time spent is greater than 50% in coordination of care (as documented) at patient's floor/unit and/or counseling patient: Coding Level of Care Code 62254 Subseq Hosp Care Lvl 3 Diagnoses Multifocal pneumonia J18.9 Acute respiratory failure with hypoxia J96.01 COPD (chronic obstructive pulmonary disease) J44.1 COPD type: COPD with acute exacerbation Coagulopathy D68.9 Metabolic encephalopathy G93.41 CAD (coronary artery disease) I25.10 Coronary Disease-Associated Artery/Lesion type: [place] artery [place] vs. transplanted heart: [place] heart Associated angina: without angina Paroxysmal atrial fibrillation I48.0 Pulmonary embolism I26.93 Pulmonary embolism type: single subsegmental (without acute cor pulmonale) Diabetes mellitus E11.9 Diabetes mellitus type: type 2 Diabetes mellitus buttermaker continuous churn insulin use: without shelter use Diabetes mellitus complication status: without complication BPH (benign prostatic hyperplasia) N40.0 Lower urinary tract symptom presence: symptoms absent Oropharyngeal dysphagia R13.12 Acute embolic stroke I63.9 Hemoperitoneum K66.1 Sleep apnea G47.33 Sleep apnea type: obstructive Elevated bilirubin R17 Hypokalemia E87.6 Knee pain M25.561; G89.29 Chronicity: chronic Laterality: right PEG (percutaneous endoscopic gastrostomy) status Z93.1 DVT prophylaxis Z29.9 (1) COPD (chronic obstructive pulmonary disease) COPD type: COPD with acute exacerbation Qualified Code(s): J44.1 - Chronic obstructive pulmonary disease with (acute) exacerbation (2) CAD (coronary artery disease) Coronary Disease-Associated Artery/Lesion type: [place] artery [place] vs. transplanted heart: [place] heart Associated angina: without angina Qualified Code(s): I25.10 - Atherosclerotic heart disease of [place] coronary artery without angina pectoris (3) Pulmonary embolism Pulmonary embolism type: single subsegmental (without acute cor pulmonale) Qualified Code(s): I26.93 - Single subsegmental pulmonary embolism without acute cor pulmonale (4) Diabetes mellitus Diabetes mellitus type: type 2 Diabetes mellitus buttermaker continuous churn insulin use: without shelter use Diabetes mellitus complication status: without complication Qualified Code(s): E11.9 - Type 2 diabetes mellitus without complications (5) BPH (benign prostatic hyperplasia) Lower urinary tract symptom presence: symptoms absent Qualified Code(s): N40.0 - Benign prostatic hyperplasia without lower urinary tract symptoms (6) Sleep apnea Sleep apnea type: obstructive Qualified Code(s): G47.33 - Obstructive sleep apnea (adult) (pediatric) (7) Knee pain Chronicity: chronic Laterality: right Qualified Code(s): M25.561 - Pain in right knee; G89.29 - Other chronic pain
[2019-12-29] MEDS ORDERED: HALOPERIDOL LACTATE 5 MG/ML 1 ML VIAL IV PRN (17:09)
[2019-12-29] MEDS: TERAZOSIN HCL 1 MG CAP PO SCH (21:48)
[2019-12-29] MEDS: PEPTAMEN INTENSE VHP 1.0 CAL 1,000 ML BAG PEG SCH (22:00)
[2019-12-30] MEDS: PIPERACILLIN/TAZOBACTAM 3.375 GM in DEXTROSE 5% 100 ML IV SCH ×4 (00:36→23:43)
[2019-12-30 06:15] LABS: Hematocrit (blood only) 29.6 % (42-52); Hemoglobin 9.3 g/dL (14.0-18.0); Mean Corpuscular Hemoglobin 28.4 pg (25-34); Mean Corpuscular Hgb Conc 31.4 g/dL (32-36); Mean Corpuscular Volume 90.2 fL (80-100); Mean Platelet Volume 10.2 fL (7.4-10.4); Platelet Count 315 K/uL (130-400); RDW Coefficient of Variation 16.9 % (11.5-14.5); RDW Standard Deviation 55.5 fL (36.4-46.3); Red Blood Count 3.28 M/uL (4.7-6.1); White Blood Count 13.66 K/uL (4.8-10.8)
[2019-12-30 06:27] LABS: INR 1.1 (0.9-1.1); Partial Thromboplastin Ratio 1.5; Partial Thromboplastin Time 40.7 Seconds (21.0-31.0); Prothrombin Time 11.3 Seconds (9.0-12.0)
[2019-12-30 06:44] LABS: BUN Creatinine Ratio 50.5 (10-20); Calcium 8.3 mg/dl (8.5-10.1); Creatinine Clr Calc Pharmacy 94.2 ml/min; Est GFR (Non-African American) 87.1; Magnesium 2.3 mg/dl (1.8-2.4); Phosphorus 2.6 mg/dl (2.5-4.9); Potassium 3.8 mmol/L (3.5-5.1)
[2019-12-30] MEDS: ALBUT/IPRATROP 3MG/0.5MG NEB 3 ML VIAL NEB SCH ×4 (07:02→19:50)
[2019-12-30] MEDS: INSULIN ASPART 100 UNITS/ML 3 ML PEN SC SCH ×5 (08:48→23:42)
[2019-12-30] MEDS: DICLOFENAC SOD 1% GEL 100 GM TUBE EXT SCH ×4 (08:53→20:16)
[2019-12-30] MEDS: predniSONE 20 MG TAB GT SCH (08:53)
[2019-12-30] MEDS ORDERED: NovoLIN-N (NPH) PER UNIT CHARGE SQ SCH (09:00)
[2019-12-30] MEDS ORDERED: predniSONE 20 MG TAB GT SCH (09:00)
--- NOTE | 2019-12-30 12:07 | Hospitalist Progress Note ---
Date of Service December 30, 2019 Assessment & Plan (1) Acute respiratory failure with hypoxia: 2nd to b/l pneumonia + COPD exacerbation. Improved. (2) Multifocal pneumonia: b/l. Suspect aspiration. IMPROVED. Due to recent hospital stays at [facility] and [facility] need to cover for gram negatives as well. Stopped vanco 2 days ago since MRSA screen negative. day #4 of IV zosyn. Possible transition to abx via PEG tomorrow. (3) COPD (chronic obstructive pulmonary disease): With exacerbation - improved. Continue prednisone - no wean today. Cont nebs, O2, and supportive care. (4) Coagulopathy: PT,INT,PTT all elevated at admission. mixing study performed - the PT corrected but the PTT did not. Former - concerning for factor deficiency (vitamin K deficiency). Latter - concerning for inhibitor (lupus anticoagulant, etc). lupus anticoagulant pending. s/p Vitamin K 5mg IV x 1 with improved INR. Appreciate Dr Whitt's consultation & recs. repeat PTT in am for stability. (5) Metabolic encephalopathy: worse today. waxing/waning. supportive care. avoid benzos/sedatives. (6) CAD (coronary artery disease): CAD/hypertension resume statin via PEG (7) Paroxysmal atrial fibrillation: Not on anticoagulation secondary to hemoperitoneum and rectus sheath hematoma. A.fib was discovered at time of admission during previous hospitalization for acute stroke. converted quickly from PAF back to NSR and remained in NSR during the rest of his previous stay. having runs of brief PAT - could easily be PAF either way cardiovascularly he is stable (8) Pulmonary embolism: Found incidentally on outpatient CTA chest done at [facility] in [place] in November. Was 3rd order vessel. Pt developed hematuria after anticoagulation started (xarelto) suggesting an underlying coagulopathy. Xarelto was stopped after 3-4 days in November. Repeat CTA chest here in December did NOT show any PEs. Dopplers of legs neg for DVT at [facility] and also [facility]. See discussion above re: coagulopathy. (9) Diabetes mellitus: Pre-diabetic with steroid induced hyperglycemia. BSG ACHS, Novolog correction factor. HbA1C 6.1%. Pharmacy providing glycemic control. (10) BPH (benign prostatic hyperplasia): cont alpha elias via PEG (11) Oropharyngeal dysphagia: 2nd to recent stroke. s/p PEG placement previous admission. complicated by severe acute blood loss anemia 2nd to hemoperitoneum. ultimately developed hypotension from such requiring ICU transfer and then ultimately transfer to [facility]. [facility] did NOT have to perform surgery to stop the bleeding; stopped spontaneously. speech performed video swallow test on 12/29 - aspirated thins and nectar thick; thus he is on honey thick liquids. 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 that was the reason for that hospital stay. presumed embolic since at time of admission he was found to be in new-onset a.fib. cannot rule out ischemic but less likely. following PEG tube placement he was resumed on heparin drip about 6 hours post- op and unfortunately developed severe hemoperitoneum and rectus sheath hematoma. heparin and all antiplatelet agents were stopped immediately. (13) Hemoperitoneum: in the setting of PEG tube insertion during previous hospitalization. also had Left rectus sheath hematoma. he had been receiving IV heparin for paroxysmal a.fib and heparin was immediately stopped upon discovery of this intraperitoneal blood during prior stay. he required transfer to [facility] for concerns he would need IR for embolization of bleed; this was not needed however. CT this admission shows stable amount of hemoperitoneum. H/H acceptable. (14) Sleep apnea: CPAP/BiPAP at night (15) Elevated bilirubin: 2nd to lysis of red cells from hemoperitoneum? either way total bili is trending down. no signs of hemolytic disease. other LFTs stable. (16) Hypokalemia: replaced (17) Knee pain: RIGHT severe OA improved with voltaren gel qid (18) PEG (percutaneous endoscopic gastrostomy) status: mesh cutter consult for tube feeding recommendations appreciated they are suggesting night-time feedings to help promote daytime hunger (19) DVT prophylaxis: SCDs Avoiding chemical anticoagulation at present due to large rectus sheath hematoma and recent hemoperitoneum with coagulopathy cont PT, OT, speech starting lexapro 5mg daily due to probable developing depression in setting of stroke Admission and Anticipated Discharge Date Admission Date: December 26, 2019 Subjective patient was being fed by nursing staff upon my arrival. he was quite sleepy, and was found to be pocketing the food. at one point he started coughing while chewing. he ate little per staff. telemetry - brief runs of PAT. patient unable to tell me much in the way of history but did admit to feeling depressed. Review of Systems Review of Systems: Unobtainable due to cognitive status Physical Exam Constitutional: + ill appearing and + obese; no acute distress ENMT: Mouth: + dry oral mucous membranes Respiratory: Auscultation: + diminished lung sounds (bases); no wheezes Cardiovascular: Rate/Rhythm: regular rate and regular rhythm Heart Sounds: normal S1 and normal S2; no murmur Vessels: posterior tibial pulses present and dorsalis pedis pulses present; no JVD Extremities: no pedal edema Gastrointestinal (Abdomen): Inspection/Auscultation: abdomen not distended Percussion/Palpation: abdomen soft and + hernia (umbilical - reducible; minimal ecchymoses around the hernia ); abdomen nontender and no hepatosplenomegaly PEG tube present - clean insertion site Psychiatric: Orientation: oriented to person; + not oriented to place and + not oriented to time Affect: + flat affect Results & Data ([facility]) Vital Signs (Past 12 Hours) Vital Signs Temp Pulse Pulse Resp BP Pulse Ox 12/30/19 11:09 36.8 C 69 21 152/67 H 100 12/30/19 11:04 72 18 95 12/30/19 07:41 36.2 C L 69 21 162/71 H 96 12/30/19 07:03 75 77 21 95 12/30/19 04:06 36.8 C 63 21 130/71 98 12/30/19 03:23 67 20 98 Laboratory Results Laboratory Results - last 24 hr 12/29/19 12/29/19 12/30/19 16:33 20:49 05:31 WBC 13.66 H RBC 3.28 L Hgb 9.3 L Hct 29.6 L MCV 90.2 MCH 28.4 MCHC 31.4 L RDW Std Deviation 55.5 H RDW Coeff of [place] 16.9 H Plt Count 315 MPV 10.2 PT INR APTT PTT Ratio Sodium Potassium Chloride Carbon Dioxide Anion Gap BUN Creatinine Est Cr Clr Drug Dosing Est GFR ( Amer) Est GFR (Non-Af Amer) BUN/Creatinine Ratio Glucose POC Glucose 211 H 182 H Calcium Phosphorus Magnesium 12/30/19 12/30/19 12/30/19 05:31 05:31 07:36 WBC RBC Hgb Hct MCV MCH MCHC RDW Std Deviation RDW Coeff of [place] Plt Count MPV PT 11.3 INR 1.1 APTT 40.7 H PTT Ratio 1.5 Sodium 144 Potassium 3.8 Chloride 112 H Carbon Dioxide 27 Anion Gap 5.0 BUN 41 H Creatinine 0.82 Est Cr Clr Drug Dosing 94.2 Est GFR ( Amer) 101.0 Est GFR (Non-Af Amer) 87.1 BUN/Creatinine Ratio 50.5 H Glucose 152 H POC Glucose 152 H Calcium 8.3 L Phosphorus 2.6 Magnesium 2.3 12/30/19 11:22 WBC RBC Hgb Hct MCV MCH MCHC RDW Std Deviation RDW Coeff of [place] Plt Count MPV PT INR APTT PTT Ratio Sodium Potassium Chloride Carbon Dioxide Anion Gap BUN Creatinine Est Cr Clr Drug Dosing Est GFR ( Amer) Est GFR (Non-Af Amer) BUN/Creatinine Ratio Glucose POC Glucose 195 H Calcium Phosphorus Magnesium PG Care Time/CCT Total # of Minutes Spent Total Time Spent with Patient: Total time spent is greater than 50% in coordination of care (as documented) at patient's floor/unit and/or counseling patient: Coding Level of Care Code 30085 Subseq Hosp Care Lvl 2 Diagnoses Acute respiratory failure with hypoxia J96.01 Multifocal pneumonia J18.9 COPD (chronic obstructive pulmonary disease) J44.1 COPD type: COPD with acute exacerbation Coagulopathy D68.9 Metabolic encephalopathy G93.41 CAD (coronary artery disease) I25.10 Associated angina: without angina Coronary Disease-Associated Artery/Lesion type: [place] artery [place] vs. transplanted heart: [place] heart Paroxysmal atrial fibrillation I48.0 Pulmonary embolism I26.93 Pulmonary embolism type: single subsegmental (without acute cor pulmonale) Diabetes mellitus E11.9 Diabetes mellitus complication status: without complication Diabetes mellitus care home insulin use: without care home use Diabetes mellitus type: type 2 BPH (benign prostatic hyperplasia) N40.0 Lower urinary tract symptom presence: symptoms absent Oropharyngeal dysphagia R13.12 Acute embolic stroke I63.9 Hemoperitoneum K66.1 Sleep apnea G47.33 Sleep apnea type: obstructive Elevated bilirubin R17 Hypokalemia E87.6 Knee pain M25.561; G89.29 Chronicity: chronic Laterality: right PEG (percutaneous endoscopic gastrostomy) status Z93.1 DVT prophylaxis Z29.9 (1) BPH (benign prostatic hyperplasia) Lower urinary tract symptom presence: symptoms absent Qualified Code(s): N40.0 - Benign prostatic hyperplasia without lower urinary tract symptoms (2) Sleep apnea Sleep apnea type: obstructive Qualified Code(s): G47.33 - Obstructive sleep apnea (adult) (pediatric) (3) Diabetes mellitus Diabetes mellitus complication status: without complication Diabetes mellitus care home insulin use: without care home use Diabetes mellitus type: type 2 Qualified Code(s): E11.9 - Type 2 diabetes mellitus without complications (4) CAD (coronary artery disease) Associated angina: without angina Coronary Disease-Associated Artery/Lesion type: [place] artery [place] vs. transplanted heart: [place] heart Qualified Code(s): I25.10 - Atherosclerotic heart disease of [place] coronary artery without angina pectoris (5) COPD (chronic obstructive pulmonary disease) COPD type: COPD with acute exacerbation Qualified Code(s): J44.1 - Chronic obstructive pulmonary disease with (acute) exacerbation (6) Pulmonary embolism Pulmonary embolism type: single subsegmental (without acute cor pulmonale) Qualified Code(s): I26.93 - Single subsegmental pulmonary embolism without acute cor pulmonale (7) Knee pain Chronicity: chronic Laterality: right Qualified Code(s): M25.561 - Pain in right knee; G89.29 - Other chronic pain
[2019-12-30] MEDS: ESCITALOPRAM OXALATE ORAL SOLN 5 MG/5 ML UDP PEG SCH (12:41)
[2019-12-30] MEDS ORDERED: PEPTAMEN INTENSE VHP 1.0 CAL 1,000 ML BAG PEG SCH (19:00)
[2019-12-30] MEDS: PEPTAMEN INTENSE VHP 1.0 CAL 1,000 ML BAG PEG SCH (20:07)
[2019-12-30] MEDS: TERAZOSIN HCL 1 MG CAP PO SCH (20:13)
[2019-12-30] MEDS ORDERED: INSULIN GLARGINE SOLOSTAR 100 UNITS/ML 3 ML PEN SC SCH (21:00)
[2019-12-31] MEDS: INSULIN ASPART 100 UNITS/ML 3 ML PEN SC SCH ×5 (03:56→20:30)
[2019-12-31 06:34] LABS: Partial Thromboplastin Ratio 1.5; Partial Thromboplastin Time 39.6 Seconds (21.0-31.0)
[2019-12-31 06:52] LABS: BUN Creatinine Ratio 58.8 (10-20); Calcium 8.4 mg/dl (8.5-10.1); Creatinine Clr Calc Pharmacy 97.7 ml/min; Est GFR (African American) 102.5; Est GFR (Non-African American) 88.5; Potassium 3.6 mmol/L (3.5-5.1)
[2019-12-31] MEDS: ALBUT/IPRATROP 3MG/0.5MG NEB 3 ML VIAL NEB SCH ×4 (06:53→19:02)
[2019-12-31] MEDS: PIPERACILLIN/TAZOBACTAM 3.375 GM in DEXTROSE 5% 100 ML IV SCH (08:54)
[2019-12-31] MEDS: ESCITALOPRAM OXALATE ORAL SOLN 5 MG/5 ML UDP PEG SCH (08:57)
[2019-12-31] MEDS: predniSONE 20 MG TAB GT SCH (08:57)
[2019-12-31] MEDS ORDERED: NovoLIN-N (NPH) PER UNIT CHARGE SQ SCH (09:00)
[2019-12-31] MEDS ORDERED: INSULIN GLARGINE SOLOSTAR 100 UNITS/ML 3 ML PEN SC SCH (09:00)
[2019-12-31] MEDS: DICLOFENAC SOD 1% GEL 100 GM TUBE EXT SCH ×4 (10:32→20:30)
--- NOTE | 2019-12-31 14:23 | Pharmacy Report ---
Pharmacy Glycemic Short Note 2 - Date of Service December 31, 2019 - Glycemic Short BSG Results (Last 24 hours): 12/30/19 12/30/19 12/30/19 16:44 20:11 23:41 Glucose POC Glucose 201 H 157 H 149 H 12/31/19 12/31/19 12/31/19 03:54 05:41 07:17 Glucose 169 H POC Glucose 178 H 172 H 12/31/19 11:24 Glucose POC Glucose 209 H OUTPATIENT ANTIDIABETIC REGIMEN: * n/a * A1c 6.1% 12/13/19 ASSESSMENT: 12/31 * Patient receiving an average of 50 units per day * yesterday received 30 units of basal (NPH + lantus) * 21 units of prandial/correctional insulin * Risk factors for insulin resistance * Continuing prednisone 40 mg daily, covering with NPH in addition to lantus * Infection- transitioned to PO antibiotics * Tube feeds being titrated up and cycled overnight (12 hours), currently not covering with additional novolog (overnight BSGs 149-172) * Anticipating insulin regimen will need adjusted: * AM BSG 172- although this is not fasting (tube feeds overnight)- will work on adjusting basal * Lunch BSG continues to be elevated and overall BSGs >140, will tighten novolog parameters today 12/28 * Patient received 22 units of insulin yesterday * 15 units of basal insulin * 7 units of prandial/correctional insulin- currently NPO * BSGs ranging 180-232 over the past 24hrs * Risk factors for insulin resistance are decreasing over the past 24hrs * Steroid dosing reduced to methylprednisolone 40 mg IV BID * Infection is being adequately treated * Anticipating insulin regimen will need adjusted for the next 24hrs d/t : * AM Fasting BSG = 182 therefore Basal insulin needs increased, however patient NPO, will give stress of 1 dose this morning * If BSGs do not start trending down, will tighten correction factor PLAN FOR INPATIENT GLYCEMIC CONTROL: * Hold outpatient oral diabetes medications * Basal insulin * Lantus 10 units this AM, evening based on scale/diet status * IF bsg <120 mg/dl 10 units * if bsg 120 or greater mg/dl 15 units * Bolus insulin * NovoLog per scale ACHS or Q6hrs while NPO * Goal Range: Low 110 mg/dL - High 140 mg/dL * Correction Factor: 15 mg/dL/unit * Nutritional / Prandial insulin per carb ratio of 1 unit per 7 grams CHO consumed PLAN FOR DISCHARGE: * Recent A1c indicated pre-diabetes, patient should f/u with outpatient provider, encourage lifestyle modifications.
[2019-12-31] MEDS: levoFLOXacin 750 MG TAB PO SCH (15:06)
[2019-12-31] MEDS ORDERED: LACTOBACILLUS ACIDOPHILUS (FLORANEX) TAB PO SCH (17:00)
[2019-12-31] MEDS: LACTOBACILLUS ACIDOPHILUS 1 GM PACK PO SCH (18:09)
--- NOTE | 2019-12-31 20:10 | Hospitalist Progress Note ---
Date of Service December 31, 2019 Assessment & Plan (1) Acute respiratory failure with hypoxia: 2nd to b/l pneumonia + COPD exacerbation -- resolved (2) Multifocal pneumonia: b/l. Likely aspiration. IMPROVED/resolving. Due to recent hospital stays at [facility] and [facility] need to cover for gram negatives as well. day #4-5/7 of IV zosyn. Stop zosyn today; give 3 days of levaquin via PEG then stop antibiotics. (3) COPD (chronic obstructive pulmonary disease): With exacerbation - improved/resolved. Continue prednisone - wean to 30mg tomorrow. Cont nebs and supportive care. (4) Coagulopathy: PT,INT,PTT all elevated at admission. mixing study performed - the PT corrected but the PTT did not. Former - concerning for factor deficiency (vitamin K deficiency). Latter - concerning for inhibitor (lupus anticoagulant, etc). lupus anticoagulant pending. s/p Vitamin K 5mg IV x 1 with improved INR. Appreciate Dr Whitt's consultation & recs. repeat PTT in am for stability. awaiting lupus anticoagulant. spoke with Dr Whitt - ideally pt should be on anticoagulation. HOWEVER, he had hematuria on xarelto, hemoperitoneum on heparin drip, and has had intermittent hematuria last few days on no blood thinners. would NOT initiate anticoagulation at this time. Will speak with vascular about ?need for IVC filter in light of recent PE and not being a good candidate for anticoagulation. (5) Metabolic encephalopathy: worse today. waxing/waning. supportive care. avoid benzos/sedatives. (6) CAD (coronary artery disease): CAD/hypertension resume statin via PEG in am (7) Paroxysmal atrial fibrillation: Not on anticoagulation secondary to hemoperitoneum and rectus sheath hematoma. A.fib was discovered at time of admission during previous hospitalization for acute stroke. converted quickly from PAF back to NSR and remained in NSR during the rest of his previous stay. having runs of brief PAT - could easily be PAF either way cardiovascularly he is stable discussed anticoagulation with patient/significant other today - holding off on anticoagulation due to ongoing hematuria (8) Pulmonary embolism: Found incidentally on outpatient CTA chest done at [facility] in [place] in November. Was 3rd order vessel. Pt developed hematuria after anticoagulation started (xarelto) suggesting an underlying coagulopathy. Xarelto was stopped after 3-4 days in November. Repeat CTA chest here in December did NOT show any PEs. Dopplers of legs neg for DVT at [facility] and also [facility]. See discussion above re: coagulopathy. IVC filter ?? Check with vascular surgery for their opinion. (9) Diabetes mellitus: Pre-diabetic with steroid induced hyperglycemia. BSG ACHS, Novolog correction factor. HbA1C 6.1%. Pharmacy providing glycemic control. (10) BPH (benign prostatic hyperplasia): cont alpha elias via PEG (11) Oropharyngeal dysphagia: 2nd to recent stroke. s/p PEG placement previous admission. complicated by severe acute blood loss anemia 2nd to hemoperitoneum. ultimately developed hypotension from such requiring ICU transfer and then ultimately transfer to [facility]. [facility] did NOT have to perform surgery to stop the bleeding; stopped spontaneously. speech performed video swallow test on 12/29 - aspirated thins and nectar thick; thus he is on honey thick liquids. 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 that was the reason for that hospital stay. presumed embolic since at time of admission he was found to be in new-onset a.fib. cannot rule out ischemic but less likely. following PEG tube placement he was resumed on heparin drip about 6 hours post-o p and unfortunately developed severe hemoperitoneum and rectus sheath hematoma. heparin and all antiplatelet agents were stopped immediately. making good recovery with strength in left arm/leg. (13) Hemoperitoneum: in the setting of PEG tube insertion during previous hospitalization. also had Left rectus sheath hematoma. he had been receiving IV heparin for paroxysmal a.fib and heparin was immediately stopped upon discovery of this intraperitoneal blood during prior stay. he required transfer to [facility] for concerns he would need IR for emb olization of bleed; this was not needed however. CT this admission shows stable amount of hemoperitoneum. H/H acceptable. (14) Sleep apnea: CPAP/BiPAP at night (15) Elevated bilirubin: 2nd to lysis of red cells from hemoperitoneum? either way total bili is trending down. no signs of hemolytic disease. other LFTs stable. (16) Hypokalemia: replaced (17) Knee pain: RIGHT severe OA improved with voltaren gel (18) PEG (percutaneous endoscopic gastrostomy) status: cont night-time feedings (19) DVT prophylaxis: SCDs Avoiding chemical anticoagulation at present due to large rectus sheath hematoma and recent hemoperitoneum with coagulopathy cont PT, OT, speech started lexapro 5mg daily due to probable developing depression in setting of stroke significant other updated at bedside today Admission and Anticipated Discharge Date Admission Date: December 26, 2019 Subjective patient was sitting in chair during my rounds today. he communicated with me via pen and paper. he wrote on paper that he was "ready to go to rehab." he also wrote that he was disappointed that he was having such difficulty with eating/drinking. denied any pain in any location. tele - 1 brief run of PAT overnight. Review of Systems Constitutional: no fever Respiratory: no cough and no dyspnea Cardiovascular: no chest pain Gastrointestinal: no abdominal pain, no nausea and no vomiting Genitourinary: + hematuria (intermittent per staff and pt's significant other ) Physical Exam Constitutional: + obese; no acute distress severe dysarthria ENMT: Mouth: + dry oral mucous membranes (with severely dry secretions caked on gums, etc) Respiratory: no respiratory distress Auscultation: + diminished lung sounds (bases); no crackles and no wheezes Cardiovascular: Rate/Rhythm: regular rate and regular rhythm Heart Sounds: normal S1 and normal S2; no murmur Vessels: posterior tibial pulses present and dorsalis pedis pulses present; no JVD Extremities: no pedal edema Gastrointestinal (Abdomen): Inspection/Auscultation: abdomen not distended Percussion/Palpation: abdomen soft and + hernia (umbilical - reducible; resolving ecchymoses around the hernia ); abdomen nontender and no hepatosplenomegaly Skin: PEG site on abdomen clean Neurologic: moves all extremities (strength near 5/5 LUE/LLE) Psychiatric: Orientation: alert, oriented to person and oriented to place Affect: + flat affect Results & Data ([facility]) Vital Signs (Past 12 Hours) Vital Signs Temp Pulse Pulse Pulse Resp BP BP 12/31/19 19:54 80 12/31/19 19:03 80 18 12/31/19 15:41 36.8 C 81 22 129/64 12/31/19 15:13 78 16 12/31/19 11:43 105 H 27 H 125/68 12/31/19 11:10 101 H 24 Pulse Ox 12/31/19 19:54 12/31/19 19:03 96 02/27/20 15:41 96 12/31/19 15:13 96 12/31/19 11:43 91 12/31/19 11:10 91 Laboratory Results Laboratory Results - last 24 hr 12/30/19 12/30/19 12/31/19 20:11 23:41 03:54 APTT PTT Ratio Sodium Potassium Chloride Carbon Dioxide Anion Gap BUN Creatinine Est Cr Clr Drug Dosing Est GFR ( Amer) Est GFR (Non-Af Amer) BUN/Creatinine Ratio Glucose POC Glucose 157 H 149 H 178 H Calcium 12/31/19 12/31/19 12/31/19 05:41 05:41 07:17 APTT 39.6 H PTT Ratio 1.5 Sodium 143 Potassium 3.6 Chloride 111 H Carbon Dioxide 27 Anion Gap 5.0 BUN 46 H Creatinine 0.79 Est Cr Clr Drug Dosing 97.7 Est GFR ( Amer) 102.5 Est GFR (Non-Af Amer) 88.5 BUN/Creatinine Ratio 58.8 H Glucose 169 H POC Glucose 172 H Calcium 8.4 L 12/31/19 12/31/19 11:24 16:24 APTT PTT Ratio Sodium Potassium Chloride Carbon Dioxide Anion Gap BUN Creatinine Est Cr Clr Drug Dosing Est GFR ( Amer) Est GFR (Non-Af Amer) BUN/Creatinine Ratio Glucose POC Glucose 209 H 173 H Calcium PG Care Time/CCT Total # of Minutes Spent Total Time Spent with Patient: Total time spent is greater than 50% in coordination of care (as documented) at patient's floor/unit and/or counseling patient: Coding Level of Care Code 88425 Subseq Hosp Care Lvl 3 Diagnoses Acute respiratory failure with hypoxia J96.01 Multifocal pneumonia J18.9 COPD (chronic obstructive pulmonary disease) J44.1 COPD type: COPD with acute exacerbation Coagulopathy D68.9 Metabolic encephalopathy G93.41 CAD (coronary artery disease) I25.10 Associated angina: without angina Coronary Disease-Associated Artery/Lesion type: [place] artery [place] vs. transplanted heart: [place] heart Paroxysmal atrial fibrillation I48.0 Pulmonary embolism I26.93 Pulmonary embolism type: single subsegmental (without acute cor pulmonale) Diabetes mellitus E11.9 Diabetes mellitus complication status: without complication Diabetes mellitus exterminator helper insulin use: without jail use Diabetes mellitus type: type 2 BPH (benign prostatic hyperplasia) N40.0 Lower urinary tract symptom presence: symptoms absent Oropharyngeal dysphagia R13.12 Acute embolic stroke I63.9 Hemoperitoneum K66.1 Sleep apnea G47.33 Sleep apnea type: obstructive Elevated bilirubin R17 Hypokalemia E87.6 Knee pain M25.561; G89.29 Chronicity: chronic Laterality: right PEG (percutaneous endoscopic gastrostomy) status Z93.1 DVT prophylaxis Z29.9 (1) BPH (benign prostatic hyperplasia) Lower urinary tract symptom presence: symptoms absent Qualified Code(s): N40.0 - Benign prostatic hyperplasia without lower urinary tract symptoms (2) Sleep apnea Sleep apnea type: obstructive Qualified Code(s): G47.33 - Obstructive sleep apnea (adult) (pediatric) (3) Diabetes mellitus Diabetes mellitus complication status: without complication Diabetes mellitus jail insulin use: without exterminator helper use Diabetes mellitus type: type 2 Qualified Code(s): E11.9 - Type 2 diabetes mellitus without complications (4) CAD (coronary artery disease) Associated angina: without angina Coronary Disease-Associated Artery/Lesion type: [place] artery [place] vs. transplanted heart: [place] heart Qualified Code(s): I25.10 - Atherosclerotic heart disease of [place] coronary artery without angina pectoris (5) COPD (chronic obstructive pulmonary disease) COPD type: COPD with acute exacerbation Qualified Code(s): J44.1 - Chronic obstructive pulmonary disease with (acute) exacerbation (6) Pulmonary embolism Pulmonary embolism type: single subsegmental (without acute cor pulmonale) Q ualified Code(s): I26.93 - Single subsegmental pulmonary embolism without acute cor pulmonale (7) Knee pain Chronicity: chronic Laterality: right Qualified Code(s): M25.561 - Pain in right knee; G89.29 - Other chronic pain
[2019-12-31] MEDS: INSULIN GLARGINE SOLOSTAR 100 UNITS/ML 3 ML PEN SC SCH (20:29)
[2019-12-31] MEDS: TERAZOSIN HCL 1 MG CAP PO SCH (20:29)
[2020-01-01] MEDS: PEPTAMEN INTENSE VHP 1.0 CAL 1,000 ML BAG PEG SCH ×2 (04:22→19:44)
[2020-01-01 05:44] LABS: Hematocrit (blood only) 26.8 % (42-52); Hemoglobin 8.4 g/dL (14.0-18.0); Mean Corpuscular Hemoglobin 28.1 pg (25-34); Mean Corpuscular Hgb Conc 31.3 g/dL (32-36); Mean Corpuscular Volume 89.6 fL (80-100); Mean Platelet Volume 10.2 fL (7.4-10.4); Platelet Count 315 K/uL (130-400); RDW Coefficient of Variation 17.2 % (11.5-14.5); RDW Standard Deviation 54.7 fL (36.4-46.3); Red Blood Count 2.99 M/uL (4.7-6.1); White Blood Count 15.35 K/uL (4.8-10.8)
[2020-01-01 05:57] LABS: Partial Thromboplastin Ratio 1.3; Partial Thromboplastin Time 35.4 Seconds (21.0-31.0)
[2020-01-01 06:13] LABS: BUN Creatinine Ratio 57.5 (10-20); Calcium 8.2 mg/dl (8.5-10.1); Creatinine Clr Calc Pharmacy 103.2 ml/min; Est GFR (African American) 104.7; Est GFR (Non-African American) 90.4; Potassium 3.5 mmol/L (3.5-5.1)
[2020-01-01] MEDS: ALBUT/IPRATROP 3MG/0.5MG NEB 3 ML VIAL NEB SCH ×4 (07:10→19:00)
--- NOTE | 2020-01-01 08:19 | Progress Note ---
DATE: 01/01/2020 DIAGNOSES: 1. Coagulopathy prolonged PTT, suspect inhibitor. 2. Acute respiratory failure with hypoxia. 3. Exacerbation of chronic obstructive pulmonary disease. 4. Metabolic encephalopathy. 5. Cerebrovascular accident. 6. Pulmonary embolism. SUBJECTIVE: Mr. Lassiter was seen and examined at bedside. Not terribly verbal today. Inquired about hematuria that nursing reported over the past couple of days. Mr. Lassiter could not give me a viable answer either way or the other. Looking into his [place] bag today appears to be normal colored urine. Nonetheless, I was asked to evaluate him for prolonged PTT. Lupus anticoagulant is confirmed positive and thus the reason for his elevated PTT. I spoke to Dr. Deleon, the manage hospitalist. Collectively, Mr. Lassiter is not stable to resume anticoagulation and thus a [place] filter may be helpful in this setting. Nursing reports no overnight difficulties. OBJECTIVE: GENERAL: A 74-year-old gentleman lying supine in no acute distress. VITAL SIGNS: Temperature 36.5, pulse 72, respiratory rate 20, blood pressure 123/62. SKIN: Without rash or lesion. HEENT: Oral mucosa without erythema or ulceration. HEART: Regular rate and rhythm. LUNGS: Clear to auscultation bilaterally. ABDOMEN: Soft, nontender, nondistended. EXTREMITIES: No clubbing, cyanosis or edema. NEUROLOGIC: He is awake and alert. LABORATORY DATA: WBC count 15,350, hemoglobin 8.4, platelet count 315,000. Sodium 146, potassium 3.5, chloride 110, carbon dioxide 32, creatinine 0.75, BUN 43. IMPRESSION: 1. Lupus anticoagulant positive. 2. Hematuria. 3. Acute respiratory failure with hypoxia. 4. Exacerbation of chronic obstructive pulmonary disease. 5. Status post cerebrovascular accident. 6. Metabolic encephalopathy. 7. Pulmonary embolism. PLAN: Mr. Lassiter was seen and examined at bedside this morning. Clinically, he appears for the most part unchanged. Apparently, nursing has been intermittently noticing hematuria throughout the week. Dr. Deleon brought this to my attention and collectively have decided not to pursue anticoagulation at this time. Recommend vascular surgery consult for a [place] filter placement. I believe this is a circumstance where the risk outweighs benefit for further anticoagulation. The fact that he now is a thrombotic risk with the presence of lupus anticoagulant some protection should be afforded. We will continue to follow him periodically during his hospital stay.
[2020-01-01] MEDS ORDERED: NovoLIN-N (NPH) PER UNIT CHARGE SQ ONE (09:00)
[2020-01-01] MEDS: INSULIN ASPART 100 UNITS/ML 3 ML PEN SC SCH ×3 (09:01→19:40)
[2020-01-01] MEDS: LACTOBACILLUS ACIDOPHILUS 1 GM PACK PO SCH ×3 (09:02→18:09)
[2020-01-01] MEDS: ATORVASTATIN 20 MG TAB PEG SCH (09:03)
[2020-01-01] MEDS: ESCITALOPRAM OXALATE ORAL SOLN 5 MG/5 ML UDP PEG SCH (09:03)
[2020-01-01] MEDS: predniSONE 10 MG TABLET GT SCH (09:03)
[2020-01-01] MEDS: DICLOFENAC SOD 1% GEL 100 GM TUBE EXT SCH ×4 (09:04→21:24)
[2020-01-01] MEDS: PANTOprazole 40 MG in SYRINGE 0 ML IV SCH ×2 (09:51→21:23)
[2020-01-01 10:03] LABS: Gastric Occult Blood Positive (Negative); pH Gastric Fluid 1
[2020-01-01] MEDS: INSULIN GLARGINE SOLOSTAR 100 UNITS/ML 3 ML PEN SC SCH ×2 (10:08→21:25)
[2020-01-01] MEDS: TUBE FEEDING WATER FLUSH GT SCH ×3 (10:12→18:09)
[2020-01-01 12:47] LABS: DRVVT Neutralization (Reflex) Negative (Negative); Lupus Hex Phase (Rflxdonotord) Positive (Negative); Thrombin Time (reflex only) 15 sec (13-19)
[2020-01-01] MEDS: SODIUM CHLOR 0.45% + 20MEQ KCL 20 MEQ/1,000 ML BAG IV SCH (12:55)
--- NOTE | 2020-01-01 12:57 | XRay Report ---
XR abdomen min 2V CLINICAL HISTORY: distension, umbilical hernia; eval for SBO bowel obstruction COMPARISON STUDY: 12/17/2019 FINDINGS: A gastrostomy tube is noted. It is unchanged in location. Nonobstructive bowel pattern. Radiopaque material within the colon. No evidence for bowel obstruction pattern. IMPRESSION: Study is negative for bowel obstruction pattern. ACT 112: Negative or not required by law. The above report was generated using voice recognition software. It may contain grammatical, syntax or spelling errors. Electronically signed by: Alex Ndiaye M.D. 01/01/2020 12:56 PM
--- NOTE | 2020-01-01 13:45 | Pharmacy Report ---
Pharmacy Glycemic Short Note 2 - Date of Service January 01, 2020 - Glycemic Short BSG Results (Last 24 hours): 12/31/19 12/31/19 01/01/20 16:24 20:20 05:21 Glucose 99 POC Glucose 173 H 165 H 01/01/20 01/01/20 07:23 11:17 Glucose POC Glucose 118 H 145 H OUTPATIENT ANTIDIABETIC REGIMEN: * n/a * A1c 6.1% 12/13/19 ASSESSMENT: 01/01 * Patient received 65 units of insulin yesterday, BSGs ranged from 165-209 * Tube Feeds were held overnight, BSG in AM 118 * Per nurse patient not eating, possible GI bleed, Novolog changed to q6H * AM lantus/NPH held as prednisone not given, and no po intake. Will leave lantus scale on for tonight 12/31 * Patient receiving an average of 50 units per day * yesterday received 30 units of basal (NPH + lantus) * 21 units of prandial/correctional insulin * Risk factors for insulin resistance * Continuing prednisone 40 mg daily, covering with NPH in addition to lantus * Infection- transitioned to PO antibiotics * Tube feeds being titrated up and cycled overnight (12 hours), currently not covering with additional novolog (overnight BSGs 149-172) * Anticipating insulin regimen will need adjusted: * AM BSG 172- although this is not fasting (tube feeds overnight)- will work on adjusting basal * Lunch BSG continues to be elevated and overall BSGs >140, will tighten novolog parameters today 12/28 * Patient received 22 units of insulin yesterday * 15 units of basal insulin * 7 units of prandial/correctional insulin- currently NPO * BSGs ranging 180-232 over the past 24hrs * Risk factors for insulin resistance are decreasing over the past 24hrs * Steroid dosing reduced to methylprednisolone 40 mg IV BID * Infection is being adequately treated * Anticipating insulin regimen will need adjusted for the next 24hrs d/t : * AM Fasting BSG = 182 therefore Basal insulin needs increased, however patient NPO, will give stress of 1 dose this morning * If BSGs do not start trending down, will tighten correction factor PLAN FOR INPATIENT GLYCEMIC CONTROL: * Hold outpatient oral diabetes medications * Basal insulin * Lantus/NPH held this morning * IF bsg <110 mg/dl HOLD * if bsg 110- 160 mg/dL 10 units * If BSG >160 mg 15 units * Bolus insulin * NovoLog per scale ACHS or Q6hrs while NPO * Goal Range: Low 110 mg/dL - High 140 mg/dL * Correction Factor: 15 mg/dL/unit * Nutritional / Prandial insulin per carb ratio of 1 unit per 7 grams CHO consumed PLAN FOR DISCHARGE: * Recent A1c indicated pre-diabetes, patient should f/u with outpatient provider, encourage lifestyle modifications.
[2020-01-01] MEDS: levoFLOXacin 750 MG TAB PO SCH (13:55)
--- NOTE | 2020-01-01 15:04 | Gastrointestinal Consultation ---
Date of Consultation January 01, 2020 Assessment & Plan (1) PEG (percutaneous endoscopic gastrostomy) status: Recommend KUB with enteric contrast to evaluate PEG and gastric outlet Continue PPI therapy as per Hospitalist team If normal KUB, I would recommend restarting Tube Feeds at 10cc/hour and increase 10 cc/hour every 2 hours until goal is reached. Would hold Tube feeds for residual >400 and recheck in 2 hours. (2) Acute embolic stroke: (3) Metabolic encephalopathy: History of Present Illness Reason for Consultation: Aspiration Pneumonia, recent PEG Tube placement Attending Physician: Luis Deleon History of Present Illness Kei Lassiter is a 74 yo CM with an extensive PMHx who underwent PEG tube plac ement on 12/16/2019, secondary to CVA with dysphagia. His course was complicated secondary to Hemoperitoneum when his anticoagulation was restarted for treatment of his CVA. He was subsequently transferred [place] [facility] and was discharged without further intervention. He returned to [facility] on 12/26/2019 with SOB and respiratory distress felt to be due to an aspiration pneumonia. He was subsequently admitted and started on IV Abx. On 12/31, he was noted to have a high residual in his stomach of >500 cc, and his tube feeds were stopped. He had approximately 1200 cc of tube feeds which drained overnight. An abdominal X-ray did not show any evidence of bowel obstruction. He did have a Video swallow earlier in this hospitalization and was given the OK by [employer] to have some supervised feedings, however, he has not done well as of this time, and is now NPO. At the time I saw the patient he was lying in bed, without complaints of fevers, chills, nausea, vomiting or diarrhea. Due to his previous CVA, he is not able to provide extensive input into this encounter. His girlfriend is at his bedside, and informs me that he has not been able to move around basically at all since his CVA earlier this month, with limited time out of bed. He denies any further complaints at this time. Allergies Allergy/AdvReac Type Severity Reaction Status Date / Time fluticasone Allergy Mild Hives Verified 12/26/19 17:20 salmeterol Allergy Mild Hives Verified 12/26/19 17:20 Home Medications Home Medications Medication Instructions Recorded Confirmed Type albuterol sulfate 90 mcg/actuation 2 puffs INHALATION Q4H #18 gm 07/31/19 12/26/19 Rx aerosol inhaler aspirin [Aspirin Low Dose] 81 mg PO DAILY 12/26/19 12/26/19 History fluticasone furoate-vilanterol 1 inh INHALATION DAILY 12/26/19 12/26/19 History [Breo Ellipta] tamsulosin 0.4 mg PO DAILY 12/26/19 12/26/19 History Patient History Medical History Arthritis Bronchitis CAD (coronary artery disease) (Chronic) COPD (chronic obstructive pulmonary disease) (Chronic) COPD (chronic obstructive pulmonary disease) Diabetes mellitus (Chronic) Elevated PSA Sleep apnea (Chronic) 09/14/2014- Urinary incontinence Surgical History H/O knee surgery History of cardiac catheterization 05/01/2010-PCI of OM 2 with CAROLINE Family History Mother Heart disease Hypertension Denies family history of Ovarian cancer Prostate cancer Breast cancer Lung cancer Colorectal cancer Social History Preferred Language: Syrian Communication Ability: Unable Visual Impairment: No Limitations Hearing Ability: Use of Hearing Aid 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 Son yemi lives within a few minutes current occupational status: retired Feels Safe at Home: Yes Smoking Status: Former smoker Tobacco Type: cigarettes and smokeless tobacco ; Age Started Using Tobacco: 15 ; Age Quit Using Tobacco: 30 ; packs per day: 2 ; Number of Years Since Quit: 44 ; Second Hand Exposure: Yes ; Hx Alcohol Use: No Hx Substance Use: No Diet Comment: regular caffeine: Yes during the past year weight has: decreased > 10 lbs Dental Care, Regularly: Yes Physical Activity Frequency: Does not Exercise Seatbelt Use: always Sunscreen Use: No Review of Systems Review of Systems: Unobtainable due to cognitive status Physical Exam Constitutional: + ill appearing and + obese Chronic ill-appearing Respiratory: normal respiratory effort, lungs clear to auscultation Cardiovascular: RRR, no murmur, no edema Gastrointestinal (Abdomen): normal bowel sounds, soft, nontender, no hepatosplenomegaly PEG tube in place in LUQ, bumper at 4 cm Skin: no rashes, warm and dry Psychiatric: Orientation: oriented to person Results & Data ([facility]) Vital Signs (Past 12 Hours) Vital Signs Temp Pulse Resp BP Pulse Ox 01/01/20 11:06 82 20 93 01/01/20 07:22 36.5 C 72 20 123/62 100 01/01/20 07:10 83 14 95 01/01/20 03:11 36.5 C 77 20 125/59 L 95 PG Care Time/CCT Total # of Minutes Spent Total Time Spent with Patient: Total time spent is greater than 50% in coordination of care (as documented) at patient's floor/unit and/or counseling patient: Coding Level of Care Code 74349 Initial Inpt Care Lvl 2 Diagnoses PEG (percutaneous endoscopic gastrostomy) status Z93.1 Acute embolic stroke I63.9 Metabolic encephalopathy G93.41
[2020-01-01 15:16] LABS: Albumin Level 2.4 gm/dl (3.4-5.0); Bilirubin Direct 0.4 mg/dl (0-0.2); Bilirubin,Total 1.3 mg/dl (0.2-1)
--- NOTE | 2020-01-01 17:58 | XRay Report ---
KUB HISTORY: PEG Tube study with Enteric contrast COMPARISON: Abdominal radiograph of same day at 12:42 PM FINDINGS: The bowel gas pattern is non-obstructive. Retained enteric contrast in the distal colon. PE G tube projects over the gastric lumen. Manual injection of Optiray 300 was injected through the PEG tube. Enteric contrast is noted within the stomach without extravasation to suggest leak. There is no organomegaly. No renal calculi. No ureteral calculi. No pneumoperitoneum or pneumatosis. No fractur e. IMPRESSION: Normal PEG tube study without contrast extravasation to suggest tube malpositioning. ACT 112: Negative or not required by law. The above report was generated using voice recognition software. It may contain grammatical, syntax o r spelling errors. Electronically signed by: Donell Clemons M.D. 01/01/2020 5:57 PM
--- NOTE | 2020-01-01 19:59 | Hospitalist Progress Note ---
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 I asked Dr Elena from GI to consult. The actual PEG tube on exam is normal. "TUBE study" was ordered by Dr Elena and this was normal verifying correct position of the tube. I was suspecting/concerned about either ileus vs SBO - especially given his umbilical hernia - but x-rays of abdomen show neither. Will attempt to resume feedings tonight. start 10cc/hr, then 4 hours later try 20cc/hr and run at that rate all night. if he does not tolerate this then he seemingly has a gastric motility issue - reglan trial then? also could consider CT abd/pelvis as well. reattempt feedings and go from there. (2) PEG (percutaneous endoscopic gastrostomy) status: re-attempt night-time feedings tonight appreciate Dr Elena's consultation (3) Lupus anticoagulant positive: This is the likely cause of his recent PE (discovered 11/2018) and potentially contributed to his stroke this month. This inhibitor explains the prolonged PTT. This inhibitor may explain recent bleeding events as well. Ideally he needs anticoagulation but has bled twice on anticoagulation - first w/ xarelto, 2nd on heparin infusion. He has had intermittent gross hematuria, and now has gastric occult + gastric secretions. Discussed his care with Dr Whitt - at this time will defer on systemic anticoagulation. Consider IVC filter - did discuss this with [facility] today - not felt to be IVC filter candidate. (4) Acute respiratory failure with hypoxia: 2nd to b/l pneumonia + COPD exacerbation -- resolved (5) Multifocal pneumonia: b/l. Likely aspiration. resolving. Due to recent hospital stays at [facility] and [facility] need to cover for gram negatives as well. had received 5 days of IV zosyn then levaquin via PEG. today would be day 6 of Rx (6) COPD (chronic obstructive pulmonary disease): With exacerbation - improved/resolved. Finish steroid taper. (7) Coagulopathy: PT,INT,PTT all elevated at admission. mixing study performed - the PT corrected but the PTT did not. Former - concerning for factor deficiency (vitamin K deficiency). Latter - concerning for inhibitor (lupus anticoagulant, etc). lupus anticoagulant is indeed positive. s/p Vitamin K 5mg IV x 1 with improved INR. Appreciate Dr Whitt's consultation & recs. repeat PTT today continues to fall. spoke with Dr Whitt - ideally pt should be on anticoagulation. HOWEVER, he had hematuria on xarelto, hemoperitoneum on heparin drip, and has had intermittent hematuria last few days on no blood thinners. would NOT initiate anticoagulation at this time. (8) Metabolic encephalopathy: yesterday was a/o x 3. today he is quite sleepy and difficult to assess. (9) CAD (coronary artery disease): CAD/hypertension resume statin via PEG in am (10) Paroxysmal atrial fibrillation: Not on anticoagulation secondary to hemoperitoneum and rectus sheath hematoma. A.fib was discovered at time of admission during previous hospitalization for acute stroke. converted quickly from PAF back to NSR and remained in NSR during the rest of his previous stay. having runs of brief PAT - could easily be PAF either way cardiovascularly he is stable discussed anticoagulation with patient/significant other today - holding off on anticoagulation due to ongoing hematuria (11) Pulmonary embolism: Found incidentally on outpatient CTA chest done at [facility] in [place] in November. Was 3rd order vessel. Pt developed hematuria after anticoagulation started (xarelto) suggesting an underlying coagulopathy. Xarelto was stopped after 3-4 days in November. Repeat CTA chest here in December did NOT show any PEs. Dopplers of legs neg for DVT at [facility] and also [facility]. See discussion above re: coagulopathy. IVC filter ?? Checked with vascular surgery - felt not to be a candidate for filter. (12) Diabetes mellitus: Pre-diabetic with steroid induced hyperglycemia. BSG ACHS, Novolog correction factor. HbA1C 6.1%. Pharmacy providing glycemic control. (13) BPH (benign prostatic hyperplasia): cont alpha elias via PEG (14) Oropharyngeal dysphagia: 2nd to recent stroke. s/p PEG placement previous admission. complicated by severe acute blood loss anemia 2nd to hemoperitoneum. ultimately developed hypotension from such requiring ICU transfer and then ultimately transfer to [facility] [address]. [facility] did NOT have to perform surgery to stop the bleeding; stopped spontaneously. speech performed video swallow test on 12/29 - aspirated thins and nectar thick; thus he is on honey thick liquids. however, he has been able to take little to no nourishment by mouth over the last 2-3 days. severe trouble masticating and initiating the swallow. speech aware. see above re: tube feeding issues. 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 that was the reason for that hospital stay. presumed embolic since at time of admission he was found to be in new-onset a.fib. cannot rule out ischemic but less likely. following PEG tube placement he was resumed on heparin drip about 6 hours post- op and unfortunately developed severe hemoperitoneum and rectus sheath hematoma. heparin and all antiplatelet agents were stopped immediately. making good recovery with strength in left arm/leg. lupus anticoagulant may have played a significant role in his stroke. (16) Hemoperitoneum: in the setting of PEG tube insertion during previous hospitalization. also had Left rectus sheath hematoma. he had been receiving IV heparin for paroxysmal a.fib and heparin was immediately stopped upon discovery of this intraperitoneal blood during prior stay. he required transfer to [facility] [address] for concerns he would need IR for embolization of bleed; this was not needed however. CT this admission shows stable amount of hemoperitoneum. H/H acceptable although mild drop today. repeat CBC am. (17) Sleep apnea: CPAP/BiPAP at night (18) Elevated bilirubin: 2nd to lysis of red cells from hemoperitoneum (suspected) total bili cont to trend down. no signs of hemolytic disease. other LFTs stable today. (19) Hypokalemia: replaced/resolved (20) Knee pain: RIGHT severe OA improved with voltaren gel (21) Hypernatremia: start 1/2 NS at 100cc/hr bmp am (22) DVT prophylaxis: SCDs Avoiding chemical anticoagulation at present due to large rectus sheath hematoma and recent hemoperitoneum with coagulopathy cont PT, OT, speech started lexapro 5mg daily due to probable developing depression in setting of stroke started Protonix 40mg IV BID due to gastric occult positive test this am and mild coffee ground material at times significant other updated at bedside again today Admission and Anticipated Discharge Date Admission Date: December 26, 2019 Subjective events of last 24 hours noted. last evening when he was to have tube feedings started the patient had a very large residual. by report there was 400-500 cc of dark liquid that exuded from the PEG tube when the PEG was connected to gravity bag. the PEG remained connected all night and he has put out copious liquid since then. some of the material has been intermittently coffee-ground. during bedside rounds this am he c/o his stomach. he pointed to the epigastric region as location of pain. he had hiccups while I was examining him. he stated he was indeed passing flatus. denied any respiratory complaints. tele overnight - small burst of PAT only. significant other at bedside today - multiple questions answered. Review of Systems Respiratory: no cough and no dyspnea Cardiovascular: no chest pain and no orthopnea Gastrointestinal: + abdominal pain; no nausea and no vomiting Physical Exam Constitutional: + obese; no acute distress ENMT: Mouth: + dry oral mucous membranes (with severely dry secretions in andrea th; lips also very dry) Respiratory: no respiratory distress Auscultation: + diminished lung sounds (bases); no crackles and no wheezes Cardiovascular: Rate/Rhythm: regular rate and regular rhythm Heart Sounds: normal S1 and normal S2; no murmur Vessels: posterior tibial pulses present and dorsalis pedis pulses present; no JVD Extremities: no pedal edema Gastrointestinal (Abdomen): Inspection/Auscultation: normal bowel sounds; abdomen not distended Percussion/Palpation: + abdomen tender (epigastric region), abdomen soft and + hernia (umbilical - reducible; resolving ecchymoses around the hernia ); no hepatosplenomegaly PEG tube site clean, no abnormalities Psychiatric: Orientation: alert, oriented to person and oriented to place Affect: + flat affect Results & Data ([facility]) Vital Signs (Past 12 Hours) Vital Signs Temp Pulse Resp BP BP Pulse Ox 01/01/20 19:36 36.7 C 89 16 146/56 H 96 01/01/20 19:02 80 18 95 01/01/20 15:16 36.6 C 86 22 126/66 96 01/01/20 15:15 86 22 96 01/01/20 11:06 82 20 93 Laboratory Results Laboratory Results - last 24 hr 12/29/19 12/31/19 01/01/20 05:12 20:20 05:21 WBC 15.35 H RBC 2.99 L Hgb 8.4 L Hct 26.8 L MCV 89.6 MCH 28.1 MCHC 31.3 L RDW Std Deviation 54.7 H RDW Coeff of [place] 17.2 H Plt Count 315 MPV 10.2 APTT PTT Ratio Thrombin Time 15 Lupus Anticoagulant see note A Lupus Anticoag aPTT 85 H Dil Wilfredo Viper Venom 49 H dRVVT Mix Interpret Not Indicated Lupus Hexagonal Phase Positive A Sodium Potassium Chloride Carbon Dioxide Anion Gap BUN Creatinine Est Cr Clr Drug Dosing Est GFR ( Amer) Est GFR (Non-Af Amer) BUN/Creatinine Ratio Glucose POC Glucose 165 H Calcium Total Bilirubin Direct Bilirubin AST ALT Alkaline Phosphatase Total Protein Albumin Phospholipid Neutraliz Negative Lipase Gastric Fluid pH Gastric Occult Blood 01/01/20 01/01/20 01/01/20 05:21 05:21 05:21 WBC RBC Hgb Hct MCV MCH MCHC RDW Std Deviation RDW Coeff of [place] Plt Count MPV APTT 35.4 H PTT Ratio 1.3 Thrombin Time Lupus Anticoagulant Lupus Anticoag aPTT Dil Wilfredo Viper Venom dRVVT Mix Interpret Lupus Hexagonal Phase Sodium 146 H Potassium 3.5 Chloride 110 H Carbon Dioxide 32 Anion Gap 4.0 BUN 43 H Creatinine 0.75 Est Cr Clr Drug Dosing 103.2 Est GFR ( Amer) 104.7 Est GFR (Non-Af Amer) 90.4 BUN/Creatinine Ratio 57.5 H Glucose 99 POC Glucose Calcium 8.2 L Total Bilirubin 1.3 H Direct Bilirubin 0.4 H AST 23 ALT 50 Alkaline Phosphatase 68 Total Protein 5.0 L Albumin 2.4 L Phospholipid Neutraliz Lipase 60 L Gastric Fluid pH Gastric Occult Blood 01/01/20 01/01/20 01/01/20 07:23 09:00 11:17 WBC RBC Hgb Hct MCV MCH MCHC RDW Std Deviation RDW Coeff of [place] Plt Count MPV APTT PTT Ratio Thrombin Time Lupus Anticoagulant Lupus Anticoag aPTT Dil Wilfredo Viper Venom dRVVT Mix Interpret Lupus Hexagonal Phase Sodium Potassium Chloride Carbon Dioxide Anion Gap BUN Creatinine Est Cr Clr Drug Dosing Est GFR ( Amer) Est GFR (Non-Af Amer) BUN/Creatinine Ratio Glucose POC Glucose 118 H 145 H Calcium Total Bilirubin Direct Bilirubin AST ALT Alkaline Phosphatase Total Protein Albumin Phospholipid Neutraliz Lipase Gastric Fluid pH 1 Gastric Occult Blood Positive A 01/01/20 18:01 WBC RBC Hgb Hct MCV MCH MCHC RDW Std Deviation RDW Coeff of [place] Plt Count MPV APTT PTT Ratio Thrombin Time Lupus Anticoagulant Lupus Anticoag aPTT Dil Wilfredo Viper Venom dRVVT Mix Interpret Lupus Hexagonal Phase Sodium Potassium Chloride Carbon Dioxide Anion Gap BUN Creatinine Est Cr Clr Drug Dosing Est GFR ( Amer) Est GFR (Non-Af Amer) BUN/Creatinine Ratio Glucose POC Glucose 159 H Calcium Total Bilirubin Direct Bilirubin AST ALT Alkaline Phosphatase Total Protein Albumin Phospholipid Neutraliz Lipase Gastric Fluid pH Gastric Occult Blood PG Care Time/CCT Total # of Minutes Spent Total Time Spent with Patient: Total time spent is greater than 50% in coordination of care (as documented) at patient's floor/unit and/or counseling patient: Coding Level of Care Code 58982 Subseq Hosp Care Lvl 3 Diagnoses Gastric motility disorder K30 PEG (percutaneous endoscopic gastrostomy) status Z93.1 Lupus anticoagulant positive R76.0 Acute respiratory failure with hypoxia J96.01 Multifocal pneumonia J18.9 COPD (chronic obstructive pulmonary disease) J44.1 COPD type: COPD with acute exacerbation Coagulopathy D68.9 Metabolic encephalopathy G93.41 CAD (coronary artery disease) I25.10 Associated angina: without angina Coronary Disease-Associated Artery/Lesion type: [place] artery [place] vs. transplanted heart: [place] heart Paroxysmal atrial fibrillation I48.0 Pulmonary embolism I26.93 Pulmonary embolism type: single subsegmental (without acute cor pulmonale) Diabetes mellitus E11.9 Diabetes mellitus complication status: without complication Diabetes mellitus mcfp insulin use: without intermediate project manager use Diabetes mellitus type: type 2 BPH (benign prostatic hyperplasia) N40.0 Lower urinary tract symptom presence: symptoms absent Oropharyngeal dysphagia R13.12 Acute embolic stroke I63.9 Hemoperitoneum K66.1 Sleep apnea G47.33 Sleep apnea type: obstructive Elevated bilirubin R17 Hypokalemia E87.6 Knee pain M25.561; G89.29 Chronicity: chronic Laterality: right Hypernatremia E87.0 DVT prophylaxis Z29.9 (1) BPH (benign prostatic hyperplasia) Lower urinary tract symptom presence: symptoms absent Qualified Code(s): N40.0 - Benign prostatic hyperplasia without lower urinary tract symptoms (2) Sleep apnea Sleep apnea type: obstructive Qualified Code(s): G47.33 - Obstructive sleep apnea (adult) (pediatric) (3) Diabetes mellitus Diabetes mellitus complication status: without complication Diabetes mellitus mcfp insulin use: without mcfp use Diabetes mellitus type: type 2 Qualified Code(s): E11.9 - Type 2 diabetes mellitus without complications (4) CAD (coronary artery disease) Associated angina: without angina Coronary Disease-Associated Artery/Lesion type: [place] artery [place] vs. transplanted heart: [place] heart Qualified Code(s): I25.10 - Atherosclerotic heart disease of [place] coronary artery without angina pectoris (5) COPD (chronic obstructive pulmonary disease) COPD type: COPD with acute exacerbation Qualified Code(s): J44.1 - Chronic obstructive pulmonary disease with (acute) exacerbation (6) Pulmonary embolism Pulmonary embolism type: single subsegmental (without acute cor pulmonale) Qualified Code(s): I26.93 - Single subsegmental pulmonary embolism without acute cor pulmonale (7) Knee pain Chronicity: chronic Laterality: right Qualified Code(s): M25.561 - Pain in right knee; G89.29 - Other chronic pain
[2020-01-01] MEDS: TERAZOSIN HCL 1 MG CAP PO SCH (21:25)
[2020-01-02] MEDS: SODIUM CHLOR 0.45% + 20MEQ KCL 20 MEQ/1,000 ML BAG IV SCH ×2 (00:14→08:50)
[2020-01-02] MEDS: INSULIN ASPART 100 UNITS/ML 3 ML PEN SC SCH ×4 (01:18→18:05)
[2020-01-02] MEDS: ALBUT/IPRATROP 3MG/0.5MG NEB 3 ML VIAL NEB SCH ×2 (07:00→11:50)
[2020-01-02 07:49] LABS: Hematocrit (blood only) 24.5 % (42-52); Hemoglobin 7.5 g/dL (14.0-18.0); Mean Corpuscular Hemoglobin 28.3 pg (25-34); Mean Corpuscular Hgb Conc 30.6 g/dL (32-36); Mean Corpuscular Volume 92.5 fL (80-100); Mean Platelet Volume 10.6 fL (7.4-10.4); Platelet Count 297 K/uL (130-400); RDW Coefficient of Variation 18.1 % (11.5-14.5); RDW Standard Deviation 60.3 fL (36.4-46.3); Red Blood Count 2.65 M/uL (4.7-6.1); White Blood Count 13.98 K/uL (4.8-10.8)
[2020-01-02] MEDS: ESCITALOPRAM OXALATE ORAL SOLN 5 MG/5 ML UDP PEG SCH (08:51)
[2020-01-02] MEDS: predniSONE 10 MG TABLET GT SCH (08:51)
[2020-01-02] MEDS: PANTOprazole 40 MG in SYRINGE 0 ML IV SCH ×2 (08:52→21:29)
[2020-01-02] MEDS: LACTOBACILLUS ACIDOPHILUS 1 GM PACK PO SCH ×3 (08:52→16:03)
[2020-01-02] MEDS: ATORVASTATIN 20 MG TAB PEG SCH (08:52)
[2020-01-02] MEDS: DICLOFENAC SOD 1% GEL 100 GM TUBE EXT SCH ×4 (08:54→21:29)
[2020-01-02] MEDS: PEPTAMEN INTENSE VHP 1.0 CAL 1,000 ML BAG PEG SCH (09:06)
--- NOTE | 2020-01-02 09:55 | Pharmacy Report ---
Pharmacy Glycemic Short Note 2 - Date of Service January 02, 2020 - Glycemic Short BSG Results (Last 24 hours): 01/01/20 01/01/20 01/02/20 11:17 18:01 00:40 POC Glucose 145 H 159 H 148 H 01/02/20 05:49 POC Glucose 157 H OUTPATIENT ANTIDIABETIC REGIMEN: * n/a * A1c 6.1% 12/13/19 ASSESSMENT: * Patient received only 13 units of insulin yesterday * Prednisone dose was held yesterday but was administered this AM * Tube feeds were restarted last night and Lantus dose seemed to cover the feeds nicely * Is currently NPO so will NOT give NPH to cover the prednisone since he will not receive CHO until later tonight with the tube feeds 01/01 * Patient received 65 units of insulin yesterday, BSGs ranged from 165-209 * Tube Feeds were held overnight, BSG in AM 118 * Per nurse patient not eating, possible GI bleed, Novolog changed to q6H * AM lantus/NPH held as prednisone not given, and no po intake. Will leave lantus scale on for tonight 12/31 * Patient receiving an average of 50 units per day * yesterday received 30 units of basal (NPH + lantus) * 21 units of prandial/correctional insulin * Risk factors for insulin resistance * Continuing prednisone 40 mg daily, covering with NPH in addition to lantus * Infection- transitioned to PO antibiotics * Tube feeds being titrated up and cycled overnight (12 hours), currently not covering with additional novolog (overnight BSGs 149-172) * Anticipating insulin regimen will need adjusted: * AM BSG 172- although this is not fasting (tube feeds overnight)- will work on adjusting basal * Lunch BSG continues to be elevated and overall BSGs >140, will tighten novolog parameters today 12/28 * Patient received 22 units of insulin yesterday * 15 units of basal insulin * 7 units of prandial/correctional insulin- currently NPO * BSGs ranging 180-232 over the past 24hrs * Risk factors for insulin resistance are decreasing over the past 24hrs * Steroid dosing reduced to methylprednisolone 40 mg IV BID * Infection is being adequately treated * Anticipating insulin regimen will need adjusted for the next 24hrs d/t : * AM Fasting BSG = 182 therefore Basal insulin needs increased, however patient NPO, will give stress of 1 dose this morning * If BSGs do not start trending down, will tighten correction factor PLAN FOR INPATIENT GLYCEMIC CONTROL: * Basal insulin - Lantus only, d/c NPH * Lantus qPM per the following scale: * IF bsg <110 mg/dl HOLD * if bsg 110- 160 mg/dL 10 units * If BSG >160 mg 15 units * Bolus insulin - no change * NovoLog per scale ACHS or Q6hrs while NPO * Goal Range: Low 110 mg/dL - High 140 mg/dL * Correction Factor: 15 mg/dL/unit * Nutritional / Prandial insulin per carb ratio of 1 unit per 7 grams CHO consumed PLAN FOR DISCHARGE: * Recent A1c indicated pre-diabetes, patient should f/u with outpatient provider, encourage lifestyle modifications.
[2020-01-02] MEDS ORDERED: IOVERSOL 100ml IV PRN (11:16)
[2020-01-02] MEDS ORDERED: ALBUT/IPRATROP 3MG/0.5MG NEB 3 ML VIAL NEB PRN (11:18)
[2020-01-02] MEDS: levoFLOXacin 750 MG TAB PO SCH (12:07)
--- NOTE | 2020-01-02 12:13 | Hospitalist Progress Note ---
Date of Service January 02, 2020 Assessment & Plan (1) Acute blood loss anemia: Over the last 72 hours he has had a 2-gram drop in hemoglobin. GI bleed +/- hematuria +/- dilutional effect from fluids all possible but suspect GI blood loss in origin. Will Tx 2 units PRBCs today. Repeat CBC in am. Stop tube feedings - not tolerating them over the last 48 hours. Cont PPI IV twice daily. CT abd/pelvis w/ contrast obtained -- the hemoperitoneum has decreased in size considerably; rectus sheath hematoma also has decreased. Thus, no intra- abdominal cavity bleeding. Dr Elena saw the patient yesterday for his feeding intolerance - need for EGD on Saturday? (2) Gastric motility disorder: Despite multiple attempts he is not tolerating continuous tube feedings even at slow rates. Trial of reglan? Trial of a more elemental tube feeding formula? Other? Due to concerns of GI bleeding and the residuals will stop tube feedings; ordered "nothing per PEG" at this time. Cont IV fluids. (3) PEG (percutaneous endoscopic gastrostomy) status: Tube study on Saturday wnl. CT today shows PEG in good position. Uncertain why he is not having success w/ tube feedings. (4) Lupus anticoagulant positive: This is the likely cause of his recent PE (discovered 11/2018) and potentially contributed to his stroke this month. This inhibitor explains the prolonged PTT. This inhibitor may explain recent bleeding events as well. Ideally he needs anticoagulation but has bled twice on anticoagulation - first w/ xarelto, 2nd on heparin infusion. He has had intermittent gross hematuria, and now has gastric occult + gastric secretions, and H/H cont to trend down. GI Bleeding? Discussed his care with Dr Whitt yesterday - at this time will defer on systemic anticoagulation. Considered IVC filter - did discuss this with [facility] today - not felt to be IVC filter candidate. (5) Acute respiratory failure with hypoxia: 2nd to b/l pneumonia + COPD exacerbation -- resolved (6) Multifocal pneumonia: b/l. Likely aspiration. resolved. DID receive levaquin via PEG this am. Will give final dose of levaquin IV tomorrow am then d/c abx. (7) COPD (chronic obstructive pulmonary disease): With exacerbation - resolved. 1 additional dose of IV steroids in am tomorrow then d/c steroids. (8) Coagulopathy: PT,INT,PTT all elevated at admission. mixing study performed - the PT corrected but the PTT did not. Former - concerning for factor deficiency (vitamin K deficiency). Latter - concerning for inhibitor (lupus anticoagulant, etc). lupus anticoagulant is indeed positive. s/p Vitamin K 5mg IV x 1 with improved INR. Probably had some element of vitamin K deficiency as well. Appreciate Dr Whitt's consultation & recs. spoke with Dr Whitt - ideally pt should be on anticoagulation. HOWEVER, he had hematuria on xarelto, hemoperitoneum on heparin drip, and has had intermittent hematuria last few days on no blood thinners. Now with concern for GI bleeding. would NOT initiate anticoagulation at this time. check PTT in am. (9) Metabolic encephalopathy: more awake/alert today. understood risks/benefits of PRBCs and gave consent today. (10) CAD (coronary artery disease): CAD/hypertension hold statin via PEG (11) Paroxysmal atrial fibrillation: Not on anticoagulation secondary to hemoperitoneum and rectus sheath hematoma. Hill.fib was discovered at time of admission during previous hospitalization for acute stroke. converted quickly from PAF back to NSR and remained in NSR during the rest of his previous stay. having runs of brief PAT - could easily be PAF either way cardiovascularly he is stable holding off on anticoagulation due to ongoing hematuria and concern of GI bleeding (12) Pulmonary embolism: Found incidentally on outpatient CTA chest done at [facility] in [place] in November. Was 3rd order vessel. Pt developed hematuria after anticoagulation started (xarelto) suggesting an underlying coagulopathy. Xarelto was stopped after 3-4 days in November. Repeat CTA chest here in December did NOT show any PEs. Dopplers of legs neg for DVT at [facility] and also [facility]. See discussion above re: coagulopathy. IVC filter ?? Checked with vascular surgery - felt not to be a candidate for filter. (13) Diabetes mellitus: Pre-diabetic with steroid induced hyperglycemia. BSG ACHS, Novolog correction factor. HbA1C 6.1%. Pharmacy providing glycemic control. (14) BPH (benign prostatic hyperplasia): hold alpha elias via PEG (15) Oropharyngeal dysphagia: 2nd to recent stroke. s/p PEG placement previous admission. complicated by severe acute blood loss anemia 2nd to hemoperitoneum. ultimately developed hypotension from such requiring ICU transfer and then ultimately transfer to [facility]. [facility] did NOT have to perform surgery to stop the bleeding; stopped spontaneously. speech performed video swallow test on 12/29 - aspirated thins and nectar thick; thus he is on honey thick liquids. however, he has been able to take little to no nourishment by mouth over the last 2-3 days. severe trouble masticating and initiating the swallow. unfortunately need to hold PO nutrition and PEG nutrition due to concern of GI bleeding (16) Acute embolic stroke: right caudate stroke during previous hospitalization. that was the reason for that hospital stay. presumed embolic since at time of admission he was found to be in new-onset a.fib. cannot rule out ischemic but less likely. following PEG tube placement he was resumed on heparin drip about 6 hours post- op and unfortunately developed severe hemoperitoneum and rectus sheath hematoma. heparin and all antiplatelet agents were stopped immediately. making good recovery with strength in left arm/leg however having numerous other issues. lupus anticoagulant may have played a significant role in his stroke. (17) Hemoperitoneum: in the setting of PEG tube insertion during previous hospitalization. also had Left rectus sheath hematoma. he had been receiving IV heparin for paroxysmal a.fib and heparin was immediately stopped upon discovery of this intraperitoneal blood during prior stay. he required transfer to [facility] for concerns he would need IR for embolization of bleed; this was not needed however. CT today shows decrease in size of hemoperitoneum. (18) Sleep apnea: CPAP/BiPAP at night (19) Elevated bilirubin: 2nd to lysis of red cells from hemoperitoneum (suspected) total bili cont to trend down. no signs of hemolytic disease. other LFTs stable. (20) Hypokalemia: resolved (21) Knee pain: RIGHT severe OA improved with voltaren gel (22) Hypernatremia: resolved with hypotonic fluids bmp am (23) DVT prophylaxis: SCDs Avoiding chemical anticoagulation cont PT, OT, speech Tammy, significant other, updated at bedside today I told patient I would like to have a family conference tomorrow with his kids to discuss goals for care in light of ever-mounting medical issues Admission and Anticipated Discharge Date Admission Date: December 26, 2019 Subjective very difficult to converse with Mr Lassiter because of severe dysarthria. however, he said "I want to go home". he denied pain in any location; denied abdominal pain. overnight he was started back on tube feedings at 10cc/hr. This was then increased to 20cc/hr. seemed to tolerate such, but then had a large residual >400cc late this am. telemetry wnl today. no melena or BRBPR per nursing staff. no coffee-ground material per PEG tube. Review of Systems Constitutional: + weakness Respiratory: no cough and no dyspnea Cardiovascular: no chest pain Gastrointestinal: no abdominal pain, no nausea and no vomiting Physical Exam Constitutional: + obese; no acute distress ENMT: Mouth: + dry oral mucous membranes (with severely dry secretions in mouth; lips also very dry) Respiratory: no respiratory distress Auscultation: + diminished lung sounds (bases); no crackles and no wheezes Cardiovascular: Rate/Rhythm: regular rate and regular rhythm Heart Sounds: normal S1 and normal S2; no murmur Vessels: posterior tibial pulses present and dorsalis pedis pulses present; no JVD Extremities: no pedal edema Gastrointestinal (Abdomen): Inspection/Auscultation: normal bowel sounds; abdomen not distended Percussion/Palpation: abdomen soft and + hernia (umbilical - reducible; resolving ecchymoses around the hernia (no change)); abdomen nontender and no hepatosplenomegaly Psychiatric: Orientation: alert, oriented to person and oriented to place Affect: + flat affect was able to sign his own consent form for blood pr oducts Results & Data ([facility]) Vital Signs (Past 12 Hours) Vital Signs Temp Pulse Pulse Resp BP BP Pulse Ox 01/02/20 11:46 36.8 C 86 18 143/53 H 95 01/02/20 08:00 80 01/02/20 07:55 36.5 C 78 16 146/52 H 96 01/02/20 07:02 82 20 98 01/02/20 03:46 36.9 C 83 20 124/71 92 Laboratory Results Laboratory Results - last 24 hr 12/29/19 01/01/20 01/01/20 05:12 05:21 18:01 WBC RBC Hgb Hct MCV MCH MCHC RDW Std Deviation RDW Coeff of [place] Plt Count MPV Thrombin Time 15 Lupus Anticoagulant see note A Lupus Anticoag aPTT 85 H Dil Wilfredo Viper Venom 49 H dRVVT Mix Interpret Not Indicated Lupus Hexagonal Phase Positive A Sodium Potassium Chloride Carbon Dioxide Anion Gap BUN Creatinine Est Cr Clr Drug Dosing Est GFR ( Amer) Est GFR (Non-Af Amer) BUN/Creatinine Ratio Glucose POC Glucose 159 H Calcium Total Bilirubin 1.3 H Direct Bilirubin 0.4 H AST 23 ALT 50 Alkaline Phosphatase 68 Total Protein 5.0 L Albumin 2.4 L Phospholipid Neutraliz Negative Lipase 60 L 01/02/20 01/02/20 01/02/20 00:40 05:49 07:00 WBC 13.98 H RBC 2.65 L Hgb 7.5 L Hct 24.5 L MCV 92.5 MCH 28.3 MCHC 30.6 L RDW Std Deviation 60.3 H RDW Coeff of [place] 18.1 H Plt Count 297 MPV 10.6 H Thrombin Time Lupus Anticoagulant Lupus Anticoag aPTT Dil Wilfredo Viper Venom dRVVT Mix Interpret Lupus Hexagonal Phase Sodium Potassium Chloride Carbon Dioxide Anion Gap BUN Creatinine Est Cr Clr Drug Dosing Est GFR ( Amer) Est GFR (Non-Af Amer) BUN/Creatinine Ratio Glucose POC Glucose 148 H 157 H Calcium Total Bilirubin Direct Bilirubin AST ALT Alkaline Phosphatase Total Protein Albumin Phospholipid Neutraliz Lipase 01/02/20 01/02/20 07:00 12:06 WBC RBC Hgb Hct MCV MCH MCHC RDW Std Deviation RDW Coeff of [place] Plt Count MPV Thrombin Time Lupus Anticoagulant Lupus Anticoag aPTT Dil Wilfredo Viper Venom dRVVT Mix Interpret Lupus Hexagonal Phase Sodium Cancelled Potassium Cancelled Chloride Cancelled Carbon Dioxide Cancelled Anion Gap Cancelled BUN Cancelled Creatinine Cancelled Est Cr Clr Drug Dosing Cancelled Est GFR ( Amer) Cancelled Est GFR (Non-Af Amer) Cancelled BUN/Creatinine Ratio Cancelled Glucose Cancelled POC Glucose 160 H Calcium Cancelled Total Bilirubin Direct Bilirubin AST ALT Alkaline Phosphatase Total Protein Albumin Phospholipid Neutraliz Lipase PG Care Time/CCT Total # of Minutes Spent Total Time Spent with Patient: Total time spent is greater than 50% in coordination of care (as documented) at patient's floor/unit and/or counseling patient: Coding Level of Care Code 56850 Subseq Hosp Care Lvl 3 Diagnoses Acute blood loss anemia D62 Gastric motility disorder K30 PEG (percutaneous endoscopic gastrostomy) status Z93.1 Lupus anticoagulant positive R76.0 Acute respiratory failure with hypoxia J96.01 Multifocal pneumonia J18.9 COPD (chronic obstructive pulmonary disease) J44.1 COPD type: COPD with acute exacerbation Coagulopathy D68.9 Metabolic encephalopathy G93.41 CAD (coronary artery disease) I25.10 Associated angina: without angina Coronary Disease-Associated Artery/Lesion type: [place] artery [place] vs. transplanted heart: [place] heart Paroxysmal atrial fibrillation I48.0 Pulmonary embolism I26.93 Pulmonary embolism type: single subsegmental (without acute cor pulmonale) Diabetes mellitus E11.9 Diabetes mellitus complication status: without complication Diabetes mellitus long-term insulin use: without long distance billing operator use Diabetes mellitus type: type 2 BPH (benign prostatic hyperplasia) N40.0 Lower urinary tract symptom presence: symptoms absent Oropharyngeal dysphagia R13.12 Acute embolic stroke I63.9 Hemoperitoneum K66.1 Sleep apnea G47.33 Sleep apnea type: obstructive Elevated bilirubin R17 Hypokalemia E87.6 Knee pain M25.561; G89.29 Chronicity: chronic Laterality: right Hypernatremia E87.0 DVT prophylaxis Z29.9 (1) BPH (benign prostatic hyperplasia) Lower urinary tract symptom presence: symptoms absent Qualified Code(s): N40.0 - Benign prostatic hyperplasia without lower urinary tract symptoms (2) Sleep apnea Sleep apnea type: obstructive Qualified Code(s): G47.33 - Obstructive sleep apnea (adult) (pediatric) (3) Diabetes mellitus Diabetes mellitus complication status: without complication Diabetes mellitus long-term insulin use: without long-term use Diabetes mellitus type: type 2 Qualified Code(s): E11.9 - Type 2 diabetes mellitus without complications (4) CAD (coronary artery disease) Associated angina: without angina Coronary Disease-Associated Artery/Lesion type: [place] artery [place] vs. transplanted heart: [place] heart Qualified Code(s): I25.10 - Atherosclerotic heart disease of [place] coronary artery without angina pectoris (5) COPD (chronic obstructive pulmonary disease) COPD type: COPD with acute exacerbation Qualified Code(s): J44.1 - Chronic obstructive pulmonary disease with (acute) exacerbation (6) Pulmonary embolism Pulmonary embolism type: single subsegmental (without acute cor pulmonale) Qualified Code(s): I26.93 - Single subsegmental pulmonary embolism without acute cor pulmonale (7) Knee pain Chronicity: chronic Laterality: right Qualified Code(s): M25.561 - Pain in right knee; G89.29 - Other chronic pain
--- NOTE | 2020-01-02 12:21 | CT Scan Report ---
CT SCAN OF THE ABDOMEN AND PELVIS WITH IV CONTRAST CLINICAL HISTORY: Anemia. COMPARISON STUDY: Abdominal CT dated 12/26/2019. TECHNIQUE: Following the IV administration of 94 cc of Optiray 320, CT scan of the abdomen and pelvi s is performed from the lung bases to the proximal femora. Images are reviewed in the axial, sagittal , and coronal planes. IV contrast was administered without complication. A dose lowering technique wa s utilized adhering to the principles of ALARA. The examination is degraded by motion artifact, as we ll as by streak artifact from the arms which could not be elevated above the abdomen. CT DOSE: 1666.71 mGy.cm FINDINGS: Lung bases: The heart is normal in size and without pericardial effusion. The coronary arteries are d ensely calcified. There is elevation of the right hemidiaphragm with bibasilar scarring/atelectasis. There is a small hiatal hernia. Liver: The contrast-enhanced liver is normal in size, contour, and attenuation. There is no intrahepa tic biliary ductal dilatation. The hepatic veins and portal veins are patent. Gallbladder: Unremarkable. Spleen: Normal in size and attenuation. Pancreas: Moderately atrophic and grossly unremarkable. Adrenal glands: Unremarkable. Kidneys: The contrast enhanced kidneys demonstrate cortical atrophy and are without hydronephrosis. T he kidneys enhance symmetrically. Abdominal vasculature: The abdominal aorta is normal in course and caliber noting moderate atheroscle rotic calcification. Bowel: A gastrostomy tube is unchanged in position. There is no bowel obstruction. Residual enteric c ontrast is present in the colon. There is mild colonic diverticulosis without CT evidence of acute di verticulitis. The appendix is well-visualized and normal. Peritoneum: There is no intraperitoneal free air. There is a large fat-containing umbilical hernia. A gain seen is an extraperitoneal hematoma deep to the left abdominal wall musculature. This measures a pproximately 14.5 x 5 x 10.5 cm, contains a hematocrit level, and has modestly decreased in size from the 12/26/2019 examination. A moderate volume of hemoperitoneum in the has modestly decreased in size from previous. No active extravasation is clearly identified. There is trace perihepatic and perispl enic ascites. No retroperitoneal hemorrhage is seen. Lymphadenopathy: None. Pelvic viscera: The bladder is decompressed around a [place] catheter and cannot be assessed. Small foc i of intraluminal gas are likely related to instrumentation. The prostate gland is mildly enlarged an d heterogeneous. There is a small fat-containing left inguinal hernia. Skeletal structures: The skeletal structures are osteopenic. Moderate lumbosacral spondylosis is obse rved. No lytic or blastic lesions are seen. IMPRESSION: 1. Streak and motion compromised examination. 2. A large extraperitoneal hematoma deep to the left abdominal wall has modestly decreased in size as compared to the 12/26/2019 examination. 3. A moderate volume of hemoperitoneum in the pelvis has also modestly decreased from 12/26/2019. 4. No enlarging hematoma or active extravasation is identified. 5. Additional findings as above. ACT 112: Negative or not required by law. Electronically signed by: Gregg Gaston M.D. 01/02/2020 12:20 PM
[2020-01-02 13:03] LABS: BUN Creatinine Ratio 54.5 (10-20); Calcium 7.7 mg/dl (8.5-10.1); Creatinine Clr Calc Pharmacy 91.5 ml/min; Est GFR (African American) 100.5; Est GFR (Non-African American) 86.7; Potassium 4.1 mmol/L (3.5-5.1)
[2020-01-02 14:44] LABS: Hematocrit (blood only) 23.1 % (42-52); Hemoglobin 7.2 g/dL (14.0-18.0)
[2020-01-02] MEDS ORDERED: SODIUM CHLORIDE 0.9% 250 ML IV PRN (15:17)
[2020-01-02] MEDS: INSULIN GLARGINE SOLOSTAR 100 UNITS/ML 3 ML PEN SC SCH (21:28)
[2020-01-03] MEDS: INSULIN ASPART 100 UNITS/ML 3 ML PEN SC SCH ×4 (00:07→18:07)
[2020-01-03] MEDS: SODIUM CHLOR 0.45% + 20MEQ KCL 20 MEQ/1,000 ML BAG IV SCH ×4 (02:31→20:54)
[2020-01-03 07:03] LABS: Hematocrit (blood only) 28.2 % (42-52); Hemoglobin 9.3 g/dL (14.0-18.0); Mean Corpuscular Hemoglobin 29.6 pg (25-34); Mean Corpuscular Volume 89.8 fL (80-100); Mean Platelet Volume 10.5 fL (7.4-10.4); Nucleated RBC # (auto) 0.09 K/uL (0-0); Nucleated RBC % (auto) 0.5 %; Platelet Count 258 K/uL (130-400); RDW Coefficient of Variation 17.1 % (11.5-14.5); RDW Standard Deviation 53.4 fL (36.4-46.3); Red Blood Count 3.14 M/uL (4.7-6.1); White Blood Count 16.13 K/uL (4.8-10.8)
[2020-01-03] MEDS: LACTOBACILLUS ACIDOPHILUS 1 GM PACK PO SCH ×3 (07:27→16:32)
[2020-01-03 07:36] LABS: Calcium 7.6 mg/dl (8.5-10.1); Creatinine Clr Calc Pharmacy 98.7 ml/min; Est GFR (African American) 103.6; Est GFR (Non-African American) 89.4
[2020-01-03] MEDS: PANTOprazole 40 MG in SYRINGE 0 ML IV SCH ×2 (08:28→20:54)
[2020-01-03] MEDS: DICLOFENAC SOD 1% GEL 100 GM TUBE EXT SCH ×4 (08:29→20:55)
[2020-01-03] MEDS ORDERED: bisacodyL 10 MG SUPP PR STA (08:51)
[2020-01-03] MEDS ORDERED: methylPREDNISolone 20 MG in SYRINGE 0 ML IV ONE (09:00)
[2020-01-03] MEDS ORDERED: LEVOFLOXACIN/D5W 750 MG/150 ML BAG IV ONE (09:00)
--- NOTE | 2020-01-03 09:46 | Pharmacy Report ---
Pharmacy Glycemic Short Note 2 - Date of Service January 03, 2020 - Glycemic Short BSG Results (Last 24 hours): 01/02/20 01/02/20 01/02/20 07:00 12:06 12:08 Glucose Cancelled 161 H POC Glucose 160 H 01/02/20 01/02/20 01/02/20 12:19 17:47 21:05 Glucose Cancelled POC Glucose 189 H 147 H 01/03/20 01/03/20 01/03/20 00:05 05:56 06:31 Glucose 139 H POC Glucose 147 H 150 H OUTPATIENT ANTIDIABETIC REGIMEN: * n/a * A1c 6.1% 12/13/19 ASSESSMENT: 01/02 * Mr. Lassiter received 18 units of insulin yesterday * He has not been tolerating his tube feeds so they have been placed on hold. He remains NPO otherwise. * Evening dose of Lantus was adjusted by overnight pharmacist to 8 units instead of 10 units * He will receive a dose of Solumedrol 20 mg this AM in place of the prednisone that is on hold * Patient received only 13 units of insulin yesterday * Prednisone dose was held yesterday but was administered this AM * Tube feeds were restarted last night and Lantus dose seemed to cover the feeds nicely * Is currently NPO so will NOT give NPH to cover the prednisone since he will not receive CHO until later tonight with the tube feeds 01/01 * Patient received 65 units of insulin yesterday, BSGs ranged from 165-209 * Tube Feeds were held overnight, BSG in AM 118 * Per nurse patient not eating, possible GI bleed, Novolog changed to q6H * AM lantus/NPH held as prednisone not given, and no po intake. Will leave lantus scale on for tonight 12/31 * Patient receiving an average of 50 units per day * yesterday received 30 units of basal (NPH + lantus) * 21 units of prandial/correctional insulin * Risk factors for insulin resistance * Continuing prednisone 40 mg daily, covering with NPH in addition to lantus * Infection- transitioned to PO antibiotics * Tube feeds being titrated up and cycled overnight (12 hours), currently not covering with additional novolog (overnight BSGs 149-172) * Anticipating insulin regimen will need adjusted: * AM BSG 172- although this is not fasting (tube feeds overnight)- will work on adjusting basal * Lunch BSG continues to be elevated and overall BSGs >140, will tighten novolog parameters today 12/28 * Patient received 22 units of insulin yesterday * 15 units of basal insulin * 7 units of prandial/correctional insulin- currently NPO * BSGs ranging 180-232 over the past 24hrs * Risk factors for insulin resistance are decreasing over the past 24hrs * Steroid dosing reduced to methylprednisolone 40 mg IV BID * Infection is being adequately treated * Anticipating insulin regimen will need adjusted for the next 24hrs d/t : * AM Fasting BSG = 182 therefore Basal insulin needs increased, however patient NPO, will give stress of 1 dose this morning * If BSGs do not start trending down, will tighten correction factor PLAN FOR INPATIENT GLYCEMIC CONTROL: * Basal insulin - decrease * Lantus qPM per the following scale: * IF bsg <110 mg/dl HOLD * if bsg 110- 160 mg/dL 8 units * If BSG >160 mg 10 units * Bolus insulin - no change, continue tightened parameters while receiving steroids * NovoLog per scale ACHS or Q6hrs while NPO * Goal Range: Low 110 mg/dL - High 140 mg/dL * Correction Factor: 15 mg/dL/unit * Nutritional / Prandial insulin per carb ratio of 1 unit per 7 grams CHO consumed PLAN FOR DISCHARGE: (from 01/01 note) * Recent A1c indicated pre-diabetes, patient should f/u with outpatient provide r, encourage lifestyle modifications.
[2020-01-03] MEDS: MoRPHine SULFATE 2 MG/ML CARP IV PRN ×2 (10:31→20:53)
[2020-01-03] MEDS: INSULIN GLARGINE SOLOSTAR 100 UNITS/ML 3 ML PEN SC SCH (20:56)
--- NOTE | 2020-01-03 22:10 | Hospitalist Progress Note ---
Date of Service January 03, 2020 Assessment & Plan (1) Acute blood loss anemia: Likely due to GI bleed. Upper suspected (melena stool, had gastric occult + recently, etc). s/p 2 units PRBCs 01/02/20. Repeat CBC today stable & improved. Cont PPI IV twice daily. Tube feedings on hold; not getting meds through PEG either. CT abd/pelvis w/ contrast -- the hemoperitoneum was decreased in size considerably; rectus sheath hematoma decreased. Thus, no ongoing intra- abdominal cavity bleeding. Will reconsult Case 3/2 for consideration of EGD. (2) Gastric motility disorder: Despite multiple attempts he has not tolerated continuous tube feedings even at slow rates. Trial of reglan? Trial of a more elemental tube feeding formula? Other? Due to GI bleeding this weekend and the concurrent residuals tube feedings are on hold Cont IV fluids. (3) PEG (percutaneous endoscopic gastrostomy) status: Tube study on Saturday wnl. CT showed PEG in good position. Uncertain why he was not having success w/ tube feedings - possible gastric motility issue. Trial of reglan at some point ? (4) Lupus anticoagulant positive: This is the likely cause of his recent PE (discovered 11/2018) and potentially contributed to his stroke in December. This inhibitor explains the prolonged PTT. This inhibitor may explain recent bleeding events as well. Ideally he needs anticoagulation but has bled twice on anticoagulation - first w/ xarelto, 2nd on heparin infusion. He has had intermittent gross hematuria, and now with GI bleeding. Numerous reasons he is NOT a systemic anticoagulation candidate. Considered IVC filter - did discuss this with [facility] on 01/01 - not felt to be IVC filter candidate. (5) Acute respiratory failure with hypoxia: 2nd to b/l pneumonia + COPD exacerbation -- resolved (6) Multifocal pneumonia: b/l. Likely aspiration. resolved. completed final dose of levaquin today. (day #7) (7) COPD (chronic obstructive pulmonary disease): With exacerbation - resolved. stop steroids today. (8) Coagulopathy: PT,INT,PTT all elevated at admission. mixing study performed - the PT corrected but the PTT did not. Former - concerning for factor deficiency (vitamin K deficiency). Latter - concerning for inhibitor (lupus anticoagulant, etc). lupus anticoagulant is indeed positive. s/p Vitamin K 5mg IV x 1 with improved INR. Probably had some element of vitamin K deficiency as well contributing to prolonged PT/INR. Appreciate Dr Whitt's consultation & recs. spoke with Dr Whitt - ideally pt should be on anticoagulation. HOWEVER, he had hematuria on xarelto, hemoperitoneum on heparin drip, and has had intermittent hematuria last few days on no blood thinners. Now with concern for GI bleeding. Not anticoagulation candidate. (9) Metabolic encephalopathy: seems resolved (10) CAD (coronary artery disease): CAD/hypertension hold statin via PEG (11) Paroxysmal atrial fibrillation: Not on anticoagulation secondary to hemoperitoneum and rectus sheath hematoma along with GI/ bleeding. A.fib was discovered at time of admission during previous hospitalization for acute stroke. converted quickly from PAF back to NSR and remained in NSR during the rest of his previous stay. having runs of brief PAT - could easily be PAF either way cardiovascularly he is stable (12) Pulmonary embolism: Found incidentally on outpatient CTA chest done at [facility] in [place] in November. Was 3rd order vessel. Pt developed hematuria after anticoagulation started (xarelto) suggesting an underlying coagulopathy. Xarelto was stopped after 3-4 days in November. Repeat CTA chest here in December did NOT show any PEs. Dopplers of legs neg for DVT at [facility] and also [facility]. See discussion above re: coagulopathy. IVC filter ?? Checked with vascular surgery - felt not to be a candidate for filter. (13) Diabetes mellitus: Pre-diabetic with steroid induced hyperglycemia. BSG ACHS, Novolog correction factor. HbA1C 6.1%. Pharmacy providing glycemic control. (14) BPH (benign prostatic hyperplasia): hold alpha elias via PEG (15) Oropharyngeal dysphagia: 2nd to recent stroke. s/p PEG placement previous admission. complicated by severe acute blood loss anemia 2nd to hemoperitoneum. ultimately developed hypotension from such requiring ICU transfer and then ultimately transfer to [facility]. [facility] did NOT have to perform surgery to stop the bleeding; stopped spontaneously. speech performed video swallow test on 12/29 - aspirated thins and nectar thick; thus he is on honey thick liquids. however, he has been able to take little to no nourishment by mouth over the last 2-3 days. severe trouble masticating and initiating the swallow. unfortunately need to hold PO nutrition and PEG nutrition due to concern of GI bleeding (16) Acute embolic stroke: right caudate stroke during previous hospitalization. that was the reason for that hospital stay. presumed embolic since at time of admission he was found to be in new-onset a.fib. cannot rule out ischemic but less likely. following PEG tube placement he was resumed on heparin drip about 6 hours post- op and unfortunately developed severe hemoperitoneum and rectus sheath hematoma. heparin and all antiplatelet agents were stopped immediately. making good recovery with strength in left arm/leg however having numerous other issues. lupus anticoagulant may have played a significant role in his stroke. (17) Hemoperitoneum: in the setting of PEG tube insertion during previous hospitalization. also had Left rectus sheath hematoma. he had been receiving IV heparin for paroxysmal a.fib and heparin was immediately stopped upon discovery of this intraperitoneal blood during prior stay. he required transfer to [facility] for concerns he would need IR for embolization of bleed; this was not needed however. CT abd/pelvis with decrease in size of hemoperitoneum. (18) Sleep apnea: CPAP/BiPAP at night (19) Elevated bilirubin: 2nd to lysis of red cells from hemoperitoneum (suspected) (20) Hypokalemia: resolved (21) Knee pain: RIGHT severe OA cont voltaren gel (22) Hypernatremia: resolved with hypotonic fluids bmp am (23) Back pain: morphine prn tylenol IV prn lidoderm patches k-pad (24) DVT prophylaxis: SCDs Avoiding chemical anticoagulation cont PT, OT, speech Tammy (significant other), son, [id number] - extensively updated today during family conference at bedside. total time of family conference was nearly 50 minutes. I confirmed again he is DNR. Discussed that he overall continues to have mounting medical issues and that we may be moving in direction of palliative care. patient himself has said multiple times he simply wants to "go home". patient and family to continue discussing goals of care. strongly consider palliative care consult next 1-2 days. total time today about 70 minutes Admission and Anticipated Discharge Date Admission Date: December 26, 2019 Subjective saw patient late afternoon. son, [id number], and significant other Tammy were all at bedside. he has complained of back pain intermittently thru the day. ordered morphine for such. we had a very lengthy discussion about his current status, mounting problems, feeding intolerance, GI bleeding (heme+ stool, drop in Hb over the weekend, etc), inability to take PO, depression, etc. see A/P for details of that conversation. staff report that the stool today was melena. Review of Systems Respiratory: no cough and no dyspnea Cardiovascular: no chest pain Musculoskeletal: + back pain Psychiatric: + depression Physical Exam Constitutional: + obese; no acute distress ENMT: Mouth: + dry oral mucous membranes (dry secretions in mouth) Respiratory: no respiratory distress Auscultation: + diminished lung sounds (bases); no crackles and no wheezes Cardiovascular: Rate/Rhythm: regular rate and regular rhythm Heart Sounds: normal S1 and normal S2; no murmur Vessels: posterior tibial pulses present and dorsalis pedis pulses present; no JVD Extremities: no pedal edema Gastrointestinal (Abdomen): Inspection/Auscultation: normal bowel sounds; abdomen not distended Percussion/Palpation: abdomen soft and + hernia (umbilical - reducible; resolving ecchymoses around the hernia ); abdomen nontender and no hepatosplenomegaly PEG tube site clean Neurologic: + focal motor deficit (LUE strength 5/5; 4/5 LLE ) Psychiatric: Orientation: alert, oriented to person and oriented to place Affect: + flat affect Mood: + depressed mood Results & Data ([facility]) Vital Signs (Past 12 Hours) Vital Signs Temp Pulse Pulse Resp BP Pulse Ox 01/03/20 19:18 36.9 C 69 20 140/67 98 01/03/20 16:00 66 01/03/20 15:10 36.4 C L 76 20 147/76 H 97 Laboratory Results Laboratory Results - last 24 hr 01/02/20 01/03/20 01/03/20 15:26 00:05 05:56 WBC RBC Hgb Hct MCV MCH MCHC RDW Std Deviation RDW Coeff of [place] Plt Count MPV Absolute Nucleated RBC Nucleated RBC % (auto) Sodium Potassium Chloride Carbon Dioxide Anion Gap BUN Creatinine Est Cr Clr Drug Dosing Est GFR ( Amer) Est GFR (Non-Af Amer) BUN/Creatinine Ratio Glucose POC Glucose 147 H 150 H Calcium Stool Occult Bld Scrn Crossmatch See Detail 01/03/20 01/03/20 01/03/20 06:31 06:31 12:22 WBC 16.13 H RBC 3.14 L Hgb 9.3 L Hct 28.2 L MCV 89.8 MCH 29.6 MCHC 33.0 RDW Std Deviation 53.4 H RDW Coeff of [place] 17.1 H Plt Count 258 MPV 10.5 H Absolute Nucleated RBC 0.09 H Nucleated RBC % (auto) 0.5 Sodium 144 Potassium 4.0 Chloride 116 H Carbon Dioxide 26 Anion Gap 2.0 L BUN 46 H Creatinine 0.77 Est Cr Clr Drug Dosing 98.7 Est GFR ( Amer) 103.6 Est GFR (Non-Af Amer) 89.4 BUN/Creatinine Ratio 59.0 H Glucose 139 H POC Glucose 187 H Calcium 7.6 L Stool Occult Bld Scrn Crossmatch 01/03/20 01/03/20 01/03/20 12:26 18:02 20:55 WBC RBC Hgb Hct MCV MCH MCHC RDW Std Deviation RDW Coeff of [place] Plt Count MPV Absolute Nucleated RBC Nucleated RBC % (auto) Sodium Potassium Chloride Carbon Dioxide Anion Gap BUN Creatinine Est Cr Clr Drug Dosing Est GFR ( Amer) Est GFR (Non-Af Amer) BUN/Creatinine Ratio Glucose POC Glucose 135 H 124 H Calcium Stool Occult Bld Scrn Positive A Crossmatch PG Care Time/CCT Total # of Minutes Spent Total Time Spent with Patient: Total time spent is greater than 50% in coordination of care (as documented) at patient's floor/unit and/or counseling patient: Prolonged Care Time Prolonged Care Time: Yes Total Prolonged Care Time: 70 Coding Level of Care Code 12607 Subseq Hosp Care Lvl 3 (25 - SIGNIFICANT, SEPARATELY IDENTIFIABLE ) Diagnoses Acute blood loss anemia D62 Gastric motility disorder K30 PEG (percutaneous endoscopic gastrostomy) status Z93.1 Lupus anticoagulant positive R76.0 Acute respiratory failure with hypoxia J96.01 Multifocal pneumonia J18.9 COPD (chronic obstructive pulmonary disease) J44.1 COPD type: COPD with acute exacerbation Coagulopathy D68.9 Metabolic encephalopathy G93.41 CAD (coronary artery disease) I25.10 Coronary Disease-Associated Artery/Lesion type: [place] artery [place] vs. transplanted heart: [place] heart Associated angina: without angina Paroxysmal atrial fibrillation I48.0 Pulmonary embolism I26.93 Pulmonary embolism type: single subsegmental (without acute cor pulmonale) Diabetes mellitus E11.9 Diabetes mellitus type: type 2 Diabetes mellitus assistant terminal manager insulin use: without assistant terminal manager use Diabetes mellitus complication status: without complication BPH (benign prostatic hyperplasia) N40.0 Lower urinary tract symptom presence: symptoms absent Oropharyngeal dysphagia R13.12 Acute embolic stroke I63.9 Hemoperitoneum K66.1 Sleep apnea G47.33 Sleep apnea type: obstructive Elevated bilirubin R17 Hypokalemia E87.6 Knee pain M25.561; G89.29 Chronicity: chronic Laterality: right Hypernatremia E87.0 Back pain M54.5 Back pain location: low back pain Chronicity: acute Back pain laterality: unspecified Sciatica presence: without sciatica DVT prophylaxis Z29.9 Additional Codes Prolonged Care Time - Prolonged Care Time: Yes ([id number]) Comment modifier #25 - prolonged inpatient care, first hour (1) COPD (chronic obstructive pulmonary disease) COPD type: COPD with acute exacerbation Qualified Code(s): J44.1 - Chronic obstructive pulmonary disease with (acute) exacerbation (2) CAD (coronary artery disease) Coronary Disease-Associated Artery/Lesion type: [place] artery [place] vs. transplanted heart: [place] heart Associated angina: without angina Qualified Code(s): I25.10 - Atherosclerotic heart disease of [place] coronary artery without angina pectoris (3) Pulmonary embolism Pulmonary embolism type: single subsegmental (without acute cor pulmonale) Qualified Code(s): I26.93 - Single subsegmental pulmonary embolism without acute cor pulmonale (4) Diabetes mellitus Diabetes mellitus type: type 2 Diabetes mellitus assistant terminal manager insulin use: without assistant terminal manager use Diabetes mellitus complication status: without complication Qualified Code(s): E11.9 - Type 2 diabetes mellitus without complications (5) BPH (benign prostatic hyperplasia) Lower urinary tract symptom presence: symptoms absent Qualified Code(s): N40.0 - Benign prostatic hyperplasia without lower urinary tract symptoms (6) Sleep apnea Sleep apnea type: obstructive Qualified Code(s): G47.33 - Obstructive sleep apnea (adult) (pediatric) (7) Knee pain Chronicity: chronic Laterality: right Qualified Code(s): M25.561 - Pain in right knee; G89.29 - Other chronic pain (8) Back pain Back pain location: low back pain Chronicity: acute Back pain laterality: unspecified Sciatica presence: without sciatica Qualified Code(s): M54.5 - Low back pain
[2020-01-03] MEDS: LIDOCAINE 5% 1 PATCH TD SCH (23:07)
[2020-01-04] MEDS: INSULIN ASPART 100 UNITS/ML 3 ML PEN SC SCH ×5 (00:25→23:17)
[2020-01-04] MEDS: SODIUM CHLOR 0.45% + 20MEQ KCL 20 MEQ/1,000 ML BAG IV SCH ×2 (06:37→19:47)
[2020-01-04 06:50] LABS: Hematocrit (blood only) 25.4 % (42-52); Hemoglobin 8.2 g/dL (14.0-18.0); Mean Corpuscular Hemoglobin 29.7 pg (25-34); Mean Corpuscular Hgb Conc 32.3 g/dL (32-36); Mean Platelet Volume 10.2 fL (7.4-10.4); Nucleated RBC # (auto) 0.08 K/uL (0-0); Nucleated RBC % (auto) 0.5 %; Platelet Count 266 K/uL (130-400); RDW Coefficient of Variation 17.9 % (11.5-14.5); RDW Standard Deviation 56.1 fL (36.4-46.3); Red Blood Count 2.76 M/uL (4.7-6.1); White Blood Count 15.19 K/uL (4.8-10.8)
[2020-01-04 07:24] LABS: BUN Creatinine Ratio 67.9 (10-20); Calcium 7.7 mg/dl (8.5-10.1); Creatinine Clr Calc Pharmacy 114.9 ml/min; Est GFR (African American) 110.4; Est GFR (Non-African American) 95.2; Potassium 3.9 mmol/L (3.5-5.1)
--- NOTE | 2020-01-04 08:48 | Hospitalist Progress Note ---
Date of Service January 04, 2020 Assessment & Plan (1) Acute blood loss anemia: Likely due to GI bleed. Upper suspected (melena stool, had gastric occult + recently, etc). s/p 2 units PRBCs 01/02/20. Repeat CBC today stable & improved. Cont PPI IV twice daily. Tube feedings on hold; not getting meds through PEG either. CT abd/pelvis w/ contrast -- the hemoperitoneum was decreased in size considerably; rectus sheath hematoma decreased. Thus, no ongoing intra- abdominal cavity bleeding. Will reconsult Case 3/2 for consideration of EGD. (2) Gastric motility disorder: Despite multiple attempts he has not tolerated continuous tube feedings even at slow rates. Trial of reglan? Trial of a more elemental tube feeding formula? Other? Due to GI bleeding this weekend and the concurrent residuals tube feedings are on hold Cont IV fluids. (3) PEG (percutaneous endoscopic gastrostomy) status: Tube study on Saturday wnl. CT showed PEG in good position. Uncertain why he was not having success w/ tube feedings - possible gastric motility issue. Trial of reglan at some point ? (4) Lupus anticoagulant positive: This is the likely cause of his recent PE (discovered 11/2018) and potentially contributed to his stroke in December. This inhibitor explains the prolonged PTT. This inhibitor may explain recent bleeding events as well. Ideally he needs anticoagulation but has bled twice on anticoagulation - first w/ xarelto, 2nd on heparin infusion. He has had intermittent gross hematuria, and now with GI bleeding. Numerous reasons he is NOT a systemic anticoagulation candidate. Considered IVC filter - did discuss this with [facility] on 01/01 - not felt to be IVC filter candidate. (5) Acute respiratory failure with hypoxia: 2nd to b/l pneumonia + COPD exacerbation -- resolved (6) Multifocal pneumonia: b/l. Likely aspiration. resolved. completed final dose of levaquin today. (day #7) (7) COPD (chronic obstructive pulmonary disease): With exacerbation - resolved. stop steroids today. (8) Coagulopathy: PT,INT,PTT all elevated at admission. mixing study performed - the PT corrected but the PTT did not. Former - concerning for factor deficiency (vitamin K deficiency). Latter - concerning for inhibitor (lupus anticoagulant, etc). lupus anticoagulant is indeed positive. s/p Vitamin K 5mg IV x 1 with improved INR. Probably had some element of vitamin K deficiency as well contributing to prolonged PT/INR. Appreciate Dr Whitt's consultation & recs. spoke with Dr Whitt - ideally pt should be on anticoagulation. HOWEVER, he had hematuria on xarelto, hemoperitoneum on heparin drip, and has had intermittent hematuria last few days on no blood thinners. Now with concern for GI bleeding. Not anticoagulation candidate. (9) Metabolic encephalopathy: seems resolved (10) CAD (coronary artery disease): CAD/hypertension hold statin via PEG (11) Paroxysmal atrial fibrillation: Not on anticoagulation secondary to hemoperitoneum and rectus sheath hematoma along with GI/ bleeding. A.fib was discovered at time of admission during previous hospitalization for acute stroke. converted quickly from PAF back to NSR and remained in NSR during the rest of his previous stay. having runs of brief PAT - could easily be PAF either way cardiovascularly he is stable (12) Pulmonary embolism: Found incidentally on outpatient CTA chest done at [facility] in [place] in November. Was 3rd order vessel. Pt developed hematuria after anticoagulation started (xarelto) suggesting an underlying coagulopathy. Xarelto was stopped after 3-4 days in November. Repeat CTA chest here in December did NOT show any PEs. Dopplers of legs neg for DVT at [facility] and also [facility]. See discussion above re: coagulopathy. IVC filter ?? Checked with vascular surgery - felt not to be a candidate for filter. (13) Diabetes mellitus: Pre-diabetic with steroid induced hyperglycemia. BSG ACHS, Novolog correction factor. HbA1C 6.1%. Pharmacy providing glycemic control. (14) BPH (benign prostatic hyperplasia): hold alpha elias via PEG (15) Oropharyngeal dysphagia: 2nd to recent stroke. s/p PEG placement previous admission. complicated by severe acute blood loss anemia 2nd to hemoperitoneum. ultimately developed hypotension from such requiring ICU transfer and then ultimately transfer to [facility]. [facility] did NOT have to perform surgery to stop the bleeding; stopped spontaneously. speech performed video swallow test on 12/29 - aspirated thins and nectar thick; thus he is on honey thick liquids. however, he has been able to take little to no nourishment by mouth over the last 2-3 days. severe trouble masticating and initiating the swallow. unfortunately need to hold PO nutrition and PEG nutrition due to concern of GI bleeding (16) Acute embolic stroke: right caudate stroke during previous hospitalization. that was the reason for that hospital stay. presumed embolic since at time of admission he was found to be in new-onset a.fib. cannot rule out ischemic but less likely. following PEG tube placement he was resumed on heparin drip about 6 hours post- op and unfortunately developed severe hemoperitoneum and rectus sheath hematoma. heparin and all antiplatelet agents were stopped immediately. making good recovery with strength in left arm/leg however having numerous other issues. lupus anticoagulant may have played a significant role in his stroke. (17) Hemoperitoneum: in the setting of PEG tube insertion during previous hospitalization. also had Left rectus sheath hematoma. he had been receiving IV heparin for paroxysmal a.fib and heparin was immediately stopped upon discovery of this intraperitoneal blood during prior stay. he required transfer to [facility] for concerns he would need IR for embolization of bleed; this was not needed however. CT abd/pelvis with decrease in size of hemoperitoneum. (18) Sleep apnea: CPAP/BiPAP at night (19) Elevated bilirubin: 2nd to lysis of red cells from hemoperitoneum (suspected) (20) Hypokalemia: resolved (21) Knee pain: RIGHT severe OA cont voltaren gel (22) Hypernatremia: resolved with hypotonic fluids bmp am (23) Back pain: morphine prn tylenol IV prn lidoderm patches k-pad (24) DVT prophylaxis: SCDs Avoiding chemical anticoagulation cont PT, OT, speech Tammy (significant other), son, [id number] - extensively updated today during family conference at bedside. total time of family conference was nearly 50 minutes. I confirmed again he is DNR. Discussed that he overall continues to have mounting medical issues and that we may be moving in direction of palliative care. patient himself has said multiple times he simply wants to "go home". patient and family to continue discussing goals of care. strongly consider palliative care consult next 1-2 days. total time today about 70 minutes Admission and Anticipated Discharge Date Admission Date: December 26, 2019 Results & Data ([facility]) Vital Signs (Past 12 Hours) Vital Signs Temp Pulse Resp BP BP Pulse Ox 01/04/20 07:55 36.9 C 72 20 152/69 H 99 01/04/20 04:00 36.8 C 70 19 133/65 97 01/03/20 23:52 36.8 C 82 22 147/65 H 98 Laboratory Results Laboratory Results - last 24 hr 01/03/20 01/03/20 01/03/20 12:22 12:26 18:02 WBC RBC Hgb Hct MCV MCH MCHC RDW Std Deviation RDW Coeff of [place] Plt Count MPV Absolute Nucleated RBC Nucleated RBC % (auto) Sodium Potassium Chloride Carbon Dioxide Anion Gap BUN Creatinine Est Cr Clr Drug Dosing Est GFR ( Amer) Est GFR (Non-Af Amer) BUN/Creatinine Ratio Glucose POC Glucose 187 H 135 H Calcium Magnesium Stool Occult Bld Scrn Positive A 01/03/20 01/04/20 01/04/20 20:55 00:24 05:52 WBC 15.19 H RBC 2.76 L Hgb 8.2 L Hct 25.4 L MCV 92.0 MCH 29.7 MCHC 32.3 RDW Std Deviation 56.1 H RDW Coeff of [place] 17.9 H Plt Count 266 MPV 10.2 Absolute Nucleated RBC 0.08 H Nucleated RBC % (auto) 0.5 Sodium Potassium Chloride Carbon Dioxide Anion Gap BUN Creatinine Est Cr Clr Drug Dosing Est GFR ( Amer) Est GFR (Non-Af Amer) BUN/Creatinine Ratio Glucose POC Glucose 124 H 117 H Calcium Magnesium Stool Occult Bld Scrn 01/04/20 01/04/20 05:52 06:06 WBC RBC Hgb Hct MCV MCH MCHC RDW Std Deviation RDW Coeff of [place] Plt Count MPV Absolute Nucleated RBC Nucleated RBC % (auto) Sodium 145 Potassium 3.9 Chloride 116 H Carbon Dioxide 24 Anion Gap 5.0 BUN 45 H Creatinine 0.66 Est Cr Clr Drug Dosing 114.9 Est GFR ( Amer) 110.4 Est GFR (Non-Af Amer) 95.2 BUN/Creatinine Ratio 67.9 H Glucose 114 H POC Glucose 116 H Calcium 7.7 L Magnesium 2.0 Stool Occult Bld Scrn Medications Administered Current Inpatient Medications Albuterol (Duoneb) 3 ml NEB QIDR PRN PRN Reason: Shortness Of Breath Or Wheezing Stop: 01/26/20 06:59 Atorvastatin Calcium (Lipitor) 20 mg PEG QAM ADOLFO Stop: 01/31/20 08:59 Last Admin: 01/02/20 08:52 Dose: 20 mg Documented by: Dextrose (Dextrose 50%) 25 - 50 ml IV UD PRN; Protocol PRN Reason: Hypoglycemia Protocol Stop: 01/25/20 21:53 Diclofenac Sodium (Voltaren 1% Top) 4 gm EXT QID ADOLFO Stop: 01/27/20 17:29 Last Admin: 01/03/20 20:55 Dose: 4 gm Documented by: Escitalopram Oxalate (Lexapro Soln) 5 mg PEG QAM ADOLFO Stop: 01/29/20 12:14 Last Admin: 01/02/20 08:51 Dose: 5 mg Documented by: Glucagon (Glucagen) 1 mg SQ UD PRN; Protocol PRN Reason: Hypoglycemia Protocol Stop: 01/25/20 21:53 Glucose (Dex4 Glucose) 4 - 8 tabs PO UD PRN; Protocol PRN Reason: Hypoglycemia Protocol Stop: 01/25/20 21:53 Glucose (Glucose 40%) 15 - 30 gm PO UD PRN; Protocol PRN Reason: Hypoglycemia Protocol Stop: 01/25/20 21:53 Haloperidol Lactate (Haldol) 1 mg IV Q6H PRN PRN Reason: Agitation Stop: 01/28/20 17:14 Pantoprazole Sodium 40 mg/ (Syringe) 10 mls @ 5 mls/min IV BID@0900,2100 [facility] Stop: 01/31/20 08:59 Last Admin: 01/03/20 20:54 Dose: 5 mls/min Documented by: Potassium Chloride/Sodium Chloride (1/2 Nss + 20meq Kcl 1000ml) 20 meq in 1,000 mls @ 100 mls/hr IV .Q10H ADOLFO Stop: 01/31/20 12:29 Last Admin: 01/04/20 06:37 Dose: 100 mls/hr Documented by: Acetaminophen (Ofirmev) 1,000 mg in 100 mls @ 400 mls/hr IV Q8H PRN PRN Reason: Pain Stop: 01/06/20 21:40 Insulin Aspart (Novolog Flexpen) 0 units SC Q6H ADOLFO Stop: 01/31/20 17:59 Last Admin: 01/04/20 06:24 Dose: Not Given Documented by: Insulin Glargine (Lantus Solostar Pen) 0 units SC HS ADOLFO; Protocol Stop: 01/30/20 20:59 Last Admin: 01/03/20 20:56 Dose: 8 units Documented by: Ioversol (Optiray 320 100ml) 94 ml IV ONCE PRN PRN Reason: Interaction Checking Stop: 01/06/20 11:15 Last Admin: 01/02/20 11:17 Dose: 94 ml Documented by: Lactobacillus Acidophilus (Floranex Granules/Powder Packet) [address] [facility] Stop: 01/30/20 16:59 Last Admin: 01/03/20 16:32 Dose: Not Given Documented by: Lidocaine (Lidoderm 5%) 3 patch TD [facility] Stop: 02/02/20 21:44 Last Admin: 01/03/20 23:07 Dose: 3 patch Documented by: Miscellaneous (Carbohydrates For Hypoglycemia) 15 - 30 gm PO UD PRN PRN Reason: Hypoglycemia Protocol Stop: 01/25/20 21:53 Miscellaneous (Stop Order) 1 ea N/A DAILY@0700 [facility] Stop: 01/30/20 06:59 Last Admin: 01/03/20 07:27 Dose: Not Given Documented by: Miscellaneous (Remove Lidoderm Patch) 1 ea N/A QAM [facility] Stop: 02/03/20 08:59 Miscellaneous Information (Consult Glycemic Management Pharmacy) 1 ea N/A UD PRN PRN Reason: Consult Stop: 01/26/20 14:10 Morphine Sulfate (Morphine Sulfate) 2 mg IV Q3H PRN PRN Reason: Pain Stop: 01/17/20 10:12 Last Admin: 01/03/20 20:53 Dose: 2 mg Documented by: Nutritional Formula (Peptamen Intense Vhp 1.0 Shaji) 1,000 ml PEG DAILY@1900 ADOLFO; Protocol Stop: 01/29/20 18:59 Last Admin: 01/02/20 09:06 Dose: 1,000 ml Documented by: Ondansetron HCl (Zofran) 4 mg IV Q6H PRN PRN Reason: Nausea Stop: 01/25/20 21:53 Prednisone (Prednisone) [address] [facility] Stop: 01/31/20 08:59 Last Admin: 01/02/20 08:51 Dose: 30 mg Documented by: Sterile Water (Tube Feeding Water Flush) [address] [facility] Stop: 01/31/20 08:59 Last Admin: 01/01/20 18:09 Dose: Not Given Documented by: Terazosin HCl (Hytrin) [address] [facility] Stop: 01/27/20 20:59 Last Admin: 01/01/20 21:25 Dose: 1 mg Documented by: PG Care Time/CCT Total # of Minutes Spent Total Time Spent with Patient: Total time spent is greater than 50% in coordination of care (as documented) at patient's floor/unit and/or counseling patient: Coding Diagnoses Acute blood loss anemia D62 Gastric motility disorder K30 PEG (percutaneous endoscopic gastrostomy) status Z93.1 Lupus anticoagulant positive R76.0 Acute respiratory failure with hypoxia J96.01 Multifocal pneumonia J18.9 COPD (chronic obstructive pulmonary disease) J44.1 COPD type: COPD with acute exacerbation Coagulopathy D68.9 Metabolic encephalopathy G93.41 CAD (coronary artery disease) I25.10 Coronary Disease-Associated Artery/Lesion type: belk[place]ski artery [place] vs. 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: without group home use Diabetes mellitus complication status: without complication BPH (benign prostatic hyperplasia) N40.0 Lower urinary tract symptom presence: symptoms absent Oropharyngeal dysphagia R13.12 Acute embolic stroke I63.9 Hemoperitoneum K66.1 Sleep apnea G47.33 Sleep apnea type: obstructive Elevated bilirubin R17 Hypokalemia E87.6 Knee pain M25.561; G89.29 Chronicity: chronic Laterality: right Hypernatremia E87.0 Back pain M54.5 Back pain location: low back pain Chronicity: acute Back pain laterality: unspecified Sciatica presence: without sciatica DVT prophylaxis Z29.9 (1) COPD (chronic obstructive pulmonary disease) COPD type: COPD with acute exacerbation Qualified Code(s): J44.1 - Chronic obstructive pulmonary disease with (acute) exacerbation (2) CAD (coronary artery disease) Coronary Disease-Associated Artery/Lesion type: belk[place]ski artery [place] vs. transplanted heart: belkofski heart Associated angina: without angina Qualified Code(s): I25.10 - Atherosclerotic heart disease of belk[place]ski coronary artery without angina pectoris (3) Pulmonary embolism Pulmonary embolism type: single subsegmental (without acute cor pulmonale) Qualified Code(s): I26.93 - Single subsegmental pulmonary embolism without acute cor pulmonale (4) Diabetes mellitus Diabetes mellitus type: type 2 Diabetes mellitus group home insulin use: without group home use Diabetes mellitus complication status: without complication Qualified Code(s): E11.9 - Type 2 diabetes mellitus without complications (5) BPH (benign prostatic hyperplasia) Lower urinary tract symptom presence: symptoms absent Qualified Code(s): N40.0 - Benign prostatic hyperplasia without lower urinary tract symptoms (6) Sleep apnea Sleep apnea type: obstructive Qualified Code(s): G47.33 - Obstructive sleep apnea (adult) (pediatric) (7) Knee pain Chronicity: chronic Laterality: right Qualified Code(s): M25.561 - Pain in right knee; G89.29 - Other chronic pain (8) Back pain Back pain location: low back pain Chronicity: acute Back pain laterality: unspecified Sciatica presence: without sciatica Qualified Code(s): M54.5 - Low back pain
[2020-01-04] MEDS: LACTOBACILLUS ACIDOPHILUS 1 GM PACK PO SCH ×3 (09:12→17:59)
[2020-01-04] MEDS: PANTOprazole 40 MG in SYRINGE 0 ML IV SCH ×2 (09:13→20:42)
[2020-01-04] MEDS: DICLOFENAC SOD 1% GEL 100 GM TUBE EXT SCH ×4 (09:13→20:42)
--- NOTE | 2020-01-04 09:25 | Gastroenterology Progress Note ---
Date of Service January 04, 2020 Assessment & Plan (1) PEG (percutaneous endoscopic gastrostomy) status: (2) Acute blood loss anemia: 1. Continue NPO status. 2. GI bleeding scan for further evaluation. 3. Continue Protonix 40 mg IV BID. 4. Additional recommendations pending results of testing. Admission and Anticipated Discharge Date Admission Date: December 26, 2019 Supervising Physician Co-Signing Physician Notes Agree with ROWAN Alcocer as above Abd: Soft, NT, ND, PEG tube in place, bumper at 3 cm Bleeding scan reviewed, and it appears bleeding is small bowel source, out of the reach or EGD/Colonoscopy Recommend transfer to tertiary center for IR or Balloon enteroscopy Discussed case with Dr. Guillermo Subjective Patient seen at the bedside today. He is status post EGD with PEG placement by Dr. Elena on 12/16/2019. Was seen in consultation by Dr. Elena last Saturday for evaluation of abdominal pain and retained gastric residuals. H&H at the time of evaluation was noted to be 8.4/26.8 but dropped to 7.2/23.1 on 01/02/2020. He remains on Protonix 40 mg IV BID. Patient is minimally verbal but does confirm fatigue and weakness but offers not other history. Was stool and gastric heme positive. CT with findings of hemoperitoneum although diminished from prior imaging. Review of Systems Review of Systems: Unobtainable due to cognitive status Physical Exam Constitutional: WD/WN, vitals as above Eyes: EOM intact bilaterally Respiratory: normal respiratory effort Auscultation: + breath sounds absent Cardiovascular: Rate/Rhythm: regular rate and regular rhythm Gastrointestinal (Abdomen): Inspection/Auscultation: normal bowel sounds Percussion/Palpation: + abdomen tender (lower abdomen) and abdomen soft PEG intact in the LUQ at skin line 3 cm. No erythema, drainage or excoriation. No bleeding from PEG site. Musculoskeletal: Extremities: + lower leg abnormality Bilateral (edema) Skin: + pallor Psychiatric: drowsy but arousable. Results & Data ([facility]) Vital Signs (Past 12 Hours) Vital Signs Temp Pulse Resp BP BP Pulse Ox 01/04/20 07:55 36.9 C 72 20 152/69 H 99 01/04/20 04:00 36.8 C 70 19 133/65 97 01/03/20 23:52 36.8 C 82 22 147/65 H 98 Laboratory Results Abnormal lab results 01/03/20 01/03/20 01/03/20 Range/Units 12:22 12:26 18:02 WBC (4.8-10.8) K/uL RBC (4.7-6.1) M/uL Hgb (14.0-18.0) g/dL Hct (42-52) % RDW Std Deviation (36.4-46.3) fL RDW Coeff of Katlin (11.5-14.5) % Absolute Nucleated RBC (0-0) K/uL Chloride (98-107) mmol/L BUN (7-18) mg/dl BUN/Creatinine Ratio (10-20) Glucose (70-99) mg/dl POC Glucose 187 H 135 H (70-99) mg/dl Calcium (8.5-10.1) mg/dl Stool Occult Bld Scrn Positive A (Negative) 01/03/20 01/04/20 01/04/20 Range/Units 20:55 00:24 05:52 WBC 15.19 H (4.8-10.8) K/uL RBC 2.76 L (4.7-6.1) M/uL Hgb 8.2 L (14.0-18.0) g/dL Hct 25.4 L (42-52) % RDW Std Deviation 56.1 H (36.4-46.3) fL RDW Coeff of [place] 17.9 H (11.5-14.5) % Absolute Nucleated RBC 0.08 H (0-0) K/uL Chloride (98-107) mmol/L BUN (7-18) mg/dl BUN/Creatinine Ratio (10-20) Glucose (70-99) mg/dl POC Glucose 124 H 117 H (70-99) mg/dl Calcium (8.5-10.1) mg/dl Stool Occult Bld Scrn (Negative) 01/04/20 01/04/20 Range/Units 05:52 06:06 WBC (4.8-10.8) K/uL RBC (4.7-6.1) M/uL Hgb (14.0-18.0) g/dL Hct (42-52) % RDW Std Deviation (36.4-46.3) fL RDW Coeff of [place] (11.5-14.5) % Absolute Nucleated RBC (0-0) K/uL Chloride 116 H (98-107) mmol/L BUN 45 H (7-18) mg/dl BUN/Creatinine Ratio 67.9 H (10-20) Glucose 114 H (70-99) mg/dl POC Glucose 116 H (70-99) mg/dl Calcium 7.7 L (8.5-10.1) mg/dl Stool Occult Bld Scrn (Negative) PG Care Time/CCT Total # of Minutes Spent Total Time Spent with Patient: Total time spent is greater than 50% in coordination of care (as documented) at patient's floor/unit and/or counseling patient: Coding Level of Care Code 90671 Subseq Hosp Care Lvl 3 Diagnoses PEG (percutaneous endoscopic gastrostomy) status Z93.1 Acute blood loss anemia D62
--- NOTE | 2020-01-04 12:43 | Nuclear Medicine Report ---
NM GI bleeding CLINICAL HISTORY: 74 years-old Male presenting with Drop in H H. gastric/stool heme positive. TECHNIQUE: Following the IV administration of 25 mCi of technetium 99m UltraTag labeled red blood christopher ls, nuclear bleeding scan was performed. Anterior flow images were obtained every 2 seconds for a tot al 48 seconds. Anterior static images were obtained every 5 minutes for a total of 60 minutes. COMPARISON: Contrast-enhanced CT of the abdomen and pelvis from 01/02/2020. FINDINGS: Expected distribution of radiotracer within the vasculature including the cardiac blood portal as wel l as the liver and spleen. There is also radiotracer avidity evident in the left mid abdomen, which appears to progress in a per istaltic manner into the bowel within the left lower quadrant and central abdomen. IMPRESSION: Positive for gastrointestinal bleeding possibly within small bowel of the left midabdomen. The report will be called/faxed according to standard departmental protocol for a critical finding. ACT 112: Negative or not required by law. Electronically signed by: Sanya Morel M.D. 01/04/2020 12:42 PM
--- NOTE | 2020-01-04 12:50 | Pharmacy Report ---
Pharmacy Glycemic Short Note 2 - Date of Service January 04, 2020 - Glycemic Short BSG Results (Last 24 hours): 01/03/20 01/03/20 01/04/20 18:02 20:55 00:24 Glucose POC Glucose 135 H 124 H 117 H 01/04/20 01/04/20 05:52 06:06 Glucose 114 H POC Glucose 116 H OUTPATIENT ANTIDIABETIC REGIMEN: * n/a * A1c 6.1% 12/13/19 ASSESSMENT: 01/03 * Patient remains NPO at this time * No longer receiving steroids * Tube feeds also placed on hold * BSGs have trended into the 116-135 range; only 13 units of insulin administered in last 24 hrs * Suspect insulin needs will be low at this time, given A1c 6.1% - will stop basal insulin and continue only correctional insulin at this time 01/02 * Mr. Lassiter received 18 units of insulin yesterday * He has not been tolerating his tube feeds so they have been placed on hold. He remains NPO otherwise. * Evening dose of Lantus was adjusted by overnight pharmacist to 8 units instead of 10 units * He will receive a dose of Solumedrol 20 mg this AM in place of the prednisone that is on hold * Patient received only 13 units of insulin yesterday * Prednisone dose was held yesterday but was administered this AM * Tube feeds were restarted last night and Lantus dose seemed to cover the feeds nicely * Is currently NPO so will NOT give NPH to cover the prednisone since he will not receive CHO until later tonight with the tube feeds PLAN FOR INPATIENT GLYCEMIC CONTROL: * Basal insulin - * none at this time * Bolus insulin - no change, continue tightened parameters while receiving steroids * NovoLog per scale ACHS or Q6hrs while NPO * Goal Range: Low 110 mg/dL - High 140 mg/dL * Correction Factor: 20 mg/dL/unit * Nutritional / Prandial insulin: none at this time PLAN FOR DISCHARGE: (from 01/01 note) * Recent A1c indicated pre-diabetes, patient should f/u with outpatient provider, encourage lifestyle modifications.
[2020-01-04 15:28] LABS: Hematocrit (blood only) 25.2 % (42-52); Hemoglobin 8.2 g/dL (14.0-18.0)
[2020-01-04] MEDS: ACETAMINOPHEN 1,000 MG/100 ML VIAL IV PRN ×2 (16:00→23:18)
--- NOTE | 2020-01-04 16:20 | Discharge Summary ---
Date of Service January 04, 2020 Admission HPI Per Admitting Provider The patient is a 74-year-old male with a past medical history including acute blood loss anemia, hemoperitoneum, metabolic encephalopathy, oropharyngeal dysphagia, ambulatory dysfunction, BPH, paroxysmal atrial fibrillation, acute ischemic stroke, A. fib, pulmonary embolism, urinary incontinence, diabetes mellitus, CAD, COPD, bronchitis and pneumonia. The patient was most recently omitted to [facility] from December 12 through December 18 for acute ischemic stroke. He was then transferred to [facility] [place], where he was discharged yesterday to [facility]. The patient himself is unresponsive and unable to provide information for HPI or review of systems. His , who is in attendance, provides his history. She reports that the patient had difficulty speaking and swallowing since the stroke, and has had weakness on his left side. He has had a PEG tube placed prior to transfer to [place], was placed on the ventilator while at [place], and ultimately when he was removed from the ventil ator his reports that he was able to swallow per their assessment. Upon discharge yesterday and prior to discharge from [place], she reports that the patient was able to eat ice cream and Jell-O's, essentially with liquid consistency. She notes that at [facility] yesterday, he ate ice cream very quickly, and became short of breath shortly thereafter. Principal Diagnosis GI bleeding Discharge Exam Constitutional + ill appearing, + frail appearing, + lethargic, + malnourished and + overweight; no acute distress Eyes PERRL, conjunctivae normal, anicteric sclerae ENMT external ear and nose normal, oropharynx normal Neck trachea midline, no thyromegaly Respiratory normal respiratory effort; no respiratory distress and no cough Auscultation: + diminished lung sounds (bases); no crackles and no rales Cardiovascular RRR, no murmur, no edema Gastrointestinal (Abdomen) normal bowel sounds, soft, nontender, no hepatosplenomegaly Musculoskeletal Head/Neck/Chest: normocephalic and head atraumatic Extremities: extremities normal to inspection and + abnormal strength (generalized weakness, more on left) Skin no rashes, warm and dry (some skin breakdown sacrum, scrotum) Neurologic patellar DTR's 2+ bilat, sensation intact and PERRL, EOMI, accommodation nl, no face palsy, no dysarthria Psychiatric Orientation: oriented to person; + not alert (lethargic), + not oriented to place and + not oriented to time Lymphatic no cervical or axillary lymphadenopathy Discharge Data Allergies Allergy/AdvReac Type Severity Reaction Status Date / Time fluticasone Allergy Mild Hives Verified 12/26/19 17:20 salmeterol Allergy Mild Hives Verified 12/26/19 17:20 Consultations 12/26/19 19:33 ED Decision to Admit Stat 12/26/19 21:54 Consult Case Management - Discharge Planning Routine 12/27/19 13:40 Consult Health Information Management Routine 12/28/19 16:45 Consult Hematology Routine 01/01/20 14:12 Consult Gastroenterology Routine 01/04/20 07:46 Consult Palliative Care Routine Ordered Studies 12/26/19 17:16 CT angio abdomen pelvis w con Stat CT angio chest PE protocol Stat 12/26/19 22:27 US extremity nonvascular Stat 12/29/19 10:00 FL video swallow Routine 01/02/20 11:15 CT abd pelvis IV con only Urgent Hospital Course (1) Acute blood loss anemia: Likely due to GI bleed. Upper suspected (melena stool, had gastric occult + on 01/02). s/p 2 units PRBCs 01/02/20. Hb up to 9.2 on 01/02, down to 8.2 on 01/03 in the morning, repeat this afternoon stable at 8.2 blood pressure and heart rate stable all day tagged RBC scan shows bleeding in small bowel, will transfer to [place] for possible IR vs push balloon enteroscopy Cont PPI IV twice daily. Tube feedings on hold; not getting meds through PEG either. CT abd/pelvis w/ contrast -- the hemoperitoneum was decreased in size cons iderably; rectus sheath hematoma decreased. Thus, no ongoing intra-abdominal cavity bleeding. long talk with patient and family at the bedside that his overall prognosis is very guarded and poor while we may be able to stop this bleed, it does not change is deconditioning, lupus anticoagulant, recent deficits from stroke, malnutrition, gastric motility issues discussed that they need to continue to discuss goals of care unfortunately patient could not participate in these discussions due to encephalopathy today (2) Gastric motility disorder: Despite multiple attempts he has not tolerated continuous tube feedings even at slow rates. Trial of reglan? did not try yet because he was made NPO with GI bleeding Trial of a more elemental tube feeding formula? Other? Due to GI bleeding this weekend and the concurrent residuals tube feedings are on hold Cont IV fluids to maintain hydration (3) PEG (percutaneous endoscopic gastrostomy) status: Tube study on Saturday wnl. CT showed PEG in good position. Uncertain why he was not having success w/ tube feedings - possible gastric motility issue. Trial of reglan at some point ? (4) Lupus anticoagulant positive: This is the likely cause of his recent PE (discovered 11/2018) and potentially contributed to his stroke in December. This inhibitor explains the prolonged PTT. This inhibitor may explain recent bleeding events as well. Ideally he needs anticoagulation but has bled twice on anticoagulation - first w/ xarelto, 2nd on heparin infusion. He has had intermittent gross hematuria, and now with GI bleeding. Numerous reasons he is NOT a systemic anticoagulation candidate. Considered IVC filter - did discuss this with [facility] on 01/01 - not felt to be IVC filter candidate. (5) Acute respiratory failure with hypoxia: 2nd to b/l pneumonia + COPD exacerbation -- resolved (6) Multifocal pneumonia: b/l. Likely aspiration. resolved. completed final dose of levaquin on 01/03/20. (day #7) (7) COPD (chronic obstructive pulmonary disease): With exacerbation - resolved. stop steroids (8) Coagulopathy: PT,INT,PTT all elevated at admission. mixing study performed - the PT corrected but the PTT did not. Former - concerning for factor deficiency (vitamin K deficiency). Latter - concerning for inhibitor (lupus anticoagulant, etc). lupus anticoagulant is indeed positive. s/p Vitamin K 5mg IV x 1 with improved INR. Probably had some element of vitamin K deficiency as well contributing to prolonged PT/INR. Appreciate Dr Whitt's consultation & recs. spoke with Dr Whitt - ideally pt should be on anticoagulation. HOWEVER, he had hematuria on xarelto, hemoperitoneum on heparin drip, and has had intermittent hematuria last few days on no blood thinners. Now with concern for GI bleeding. Not anticoagulation candidate. (9) Metabolic encephalopathy: seems resolved (10) CAD (coronary artery disease): CAD/hypertension hold statin via PEG (11) Paroxysmal atrial fibrillation: Not on anticoagulation secondary to hemoperitoneum and rectus sheath hematoma along with GI/ bleeding. A.fib was discovered at time of admission during previous hospitalization for acute stroke. converted quickly from PAF back to NSR and remained in NSR during the rest of his previous stay. having runs of brief PAT - could easily be PAF either way cardiovascularly he is stable (12) Pulmonary embolism: Found incidentally on outpatient CTA chest done at [facility] in [place] in November. Was 3rd order vessel. Pt developed hematuria after anticoagulation started (xarelto) suggesting an underlying coagulopathy. Xarelto was stopped after 3-4 days in November. Repeat CTA chest here in December did NOT show any PEs. Dopplers of legs neg for DVT at [facility] and also [facility]. See discussion above re: coagulopathy. IVC filter ?? Checked with vascular surgery - felt not to be a candidate for filter. (13) Diabetes mellitus: Pre-diabetic with steroid induced hyperglycemia. BSG ACHS, Novolog correction factor. HbA1C 6.1%. Pharmacy providing glycemic control. (14) BPH (benign prostatic hyperplasia): hold alpha elias via PEG (15) Oropharyngeal dysphagia: 2nd to recent stroke. s/p PEG placement previous admission. complicated by severe acute blood loss anemia 2nd to hemoperitoneum. ultimately developed hypotension from such requiring ICU transfer and then ultimately transfer to [facility]. [facility] did NOT have to perform surgery to stop the bleeding; stopped spontaneously. speech performed video swallow test on 12/29 - aspirated thins and nectar thick; thus he is on honey thick liquids. however, he has been able to take little to no nourishment by mouth over the last 2-3 days. severe trouble masticating and initiating the swallow. unfortunately need to hold PO nutrition and PEG nutrition due to concern of GI bleeding (16) Acute embolic stroke: right caudate stroke during previous hospitalization. that was the reason for that hospital stay. presumed embolic since at time of admission he was found to be in new-onset a.fib. cannot rule out ischemic but less likely. following PEG tube placement he was resumed on heparin drip about 6 hours post- op and unfortunately developed severe hemoperitoneum and rectus sheath hematoma. heparin and all antiplatelet agents were stopped immediately. making good recovery with strength in left arm/leg however having numerous other issues. lupus anticoagulant may have played a significant role in his stroke. (17) Hemoperitoneum: in the setting of PEG tube insertion during previous hospitalization. also had Left rectus sheath hematoma. he had been receiving IV heparin for paroxysmal a.fib and heparin was immediately stopped upon discovery of this intraperitoneal blood during prior stay. he required transfer to [facility] for concerns he would need IR for embolization of bleed; this was not needed however. CT abd/pelvis with decrease in size of hemoperitoneum. (18) Sleep apnea: CPAP/BiPAP at night (19) Elevated bilirubin: 2nd to lysis of red cells from hemoperitoneum (suspected) (20) Hypokalemia: resolved (21) Knee pain: RIGHT severe OA cont voltaren gel (22) Hypernatremia: resolved with hypotonic fluids bmp am (23) Back pain: morphine prn tylenol IV prn lidoderm patches k-pad (24) DVT prophylaxis: SCDs Avoiding chemical anticoagulation cont PT, OT, speech Tammy (significant other), son, [id number] - extensively updated today I confirmed again he is DNR. again, discussed that we will go to [place] for evaluation of the bleeding and possible intervention however, overall prognosis is very poor they need to consider palliative approach from here on they want to continue to try tube feeds, discussed that there may not be a clear answer asked them to consider what the patient may want since he cannot participate in discussions Total Time Total Time Spent Total Time Spent (In Minutes): 45 minutes Total Time Includes: Examination of the Patient, Discharge Planning, Medication Reconciliation and Communication With Other Providers Discharge Plan Discharge Items Patient Disposition: Transfer Acute Care Hospital Reason For Visit: ACUTE RESP FAILURE WITH HYPOXIA Discharge Diagnosis: Pneumonia GI bleeding, suspected small bowel source Dysphagia due to stroke s/p PEG, intolerant to tube feeds Condition on Discharge: Fair Goals: evaluate for IR embolization or push balloon enteroscopy for bleeding Activity: Per Instructions section Non-emergency contact: Primary Care Provider Call non-emergency contact if: you have any medication questions Follow-up/Referrals: Kimani Meier CRNP [Primary Care Provider] - Rylan Robles PA-C [Physician Export Documents Clerk] - 01/13/20 11:00 am (Please, follow up at [facility] with Jonathan Robles PA-C on SaturdayJanuary 12 at 11:00 am. *If you need to change this appointment, call the office at [phone].) Diet: Nothing by Mouth Addtl Attending Provider Instructions: speech therapy recommendations: keep NPO until he can be re-evaluated, pocketing food again Pending Studies at Discharge: No Stand-Alone Forms: My [facility] Skilled Items Patient informed of condition?: Yes DNR: Yes Discharge Level of Care: Other Communicable Disease: No Discharge Prognosis: Deteriorating Lines: Peripheral IV Urinary Catheter: Yes Medications and DC Order Prescriptions: Continued albuterol sulfate 90 mcg/actuation HFA aerosol inhaler 2 puffs inhalation Q4H Qty: 18 RF: 5 tamsulosin 0.4 mg capsule 0.4 mg PO DAILY RF: 0 Breo Ellipta 100-25 mcg/dose blister with device 1 inh INHALATION DAILY RF: 0 Discontinued aspirin [Aspirin Low Dose] 81 mg Tablet,Delayed Release (Dr/Ec) 81 mg PO DAILY RF: 0 Discharge Orders: Discharge Order (Routine); Ordered 01/04/20 Ordered By: Renato Guillermo Admission Data Admit Date/Time: 12/26/19 20:53 Attending Provider: Renato Guillermo Admit Provider: Usman Moss Primary Care Provider: Kimani Meier Other Providers: Lauqita Mancilla ; Carroll Whitt V ; Gilmer Calle ; Josiah Elena ; Puja Louis Coding Level of Care Code D/C Day Management >30 mins Diagnoses Acute blood loss anemia D62 Gastric motility disorder K30 PEG (percutaneous endoscopic gastrostomy) status Z93.1 Lupus anticoagulant positive R76.0 Acute respiratory failure with hypoxia J96.01 Multifocal pneumonia J18.9 COPD (chronic obstructive pulmonary disease) J44.1 COPD type: COPD with acute exacerbation Coagulopathy D68.9 Metabolic encephalopathy G93.41 CAD (coronary artery disease) I25.10 Associated angina: without angina Coronary Disease-Associated Artery/Lesion type: [place] artery [place] vs. transplanted heart: [place] heart Paroxysmal atrial fibrillation I48.0 Pulmonary embolism I26.93 Pulmonary embolism type: single subsegmental (without acute cor pulmonale) Diabetes mellitus E11.9 Diabetes mellitus complication status: without complication Diabetes mellitus detention insulin use: without detention use Diabetes mellitus type: type 2 BPH (benign prostatic hyperplasia) N40.0 Lower urinary tract symptom presence: symptoms absent Oropharyngeal dysphagia R13.12 Acute embolic stroke I63.9 Hemoperitoneum K66.1 Sleep apnea G47.33 Sleep apnea type: obstructive Elevated bilirubin R17 Hypokalemia E87.6 Knee pain M25.561; G89.29 Chronicity: chronic Laterality: right Hypernatremia E87.0 Back pain M54.5 Back pain laterality: unspecified Back pain location: low back pain Chronicity: acute Sciatica presence: without sciatica DVT prophylaxis Z29.9
--- NOTE | 2020-01-04 16:50 | Hematology/Oncology Prog Note ---
Date of Service January 04, 2020 Assessment & Plan (1) Acute blood loss anemia: Mr. Lassiter's hemoglobin is drifting down a bit. I am somewhat concerned that he could still be bleeding, though another possibility is that his hemoglobin has not totally nadired from his previous blood loss. I suggested checking his stool for blood. He had an EGD as part of his PEG placement 2 weeks ago and the bleeding he experienced post-procedure was intra-abdominal. Present on Admission?: Yes (2) Lupus anticoagulant positive: He has a lupus anticoagulant. He had a tiny, age-indeterminate, incidentally detected PE. Given the uncertainty regarding that finding, I'm not sure if we can truly call this APLS. Regardless, he has other indications to be on blood thinners but cannot be on any at the moment due to his bleeding issues. If his bleeding stably resolves and he makes a meaningful recovery, he could consider restarting warfarin in the future. I would favor that over a DOAC in light of the LAC. Present on Admission?: Yes Subjective Mr. Lassiter was not verbally responsive during our encounter, though his eyes were open spontaneously and he did not appear to be in distress. He had no obvious evidence of bleeding from his mucosae or his skin. Review of Systems Review of Systems: Unobtainable due to reduced consciousness Physical Exam Constitutional: + ill appearing (chronically); no acute distress Respiratory: normal respiratory effort, lungs clear to auscultation (anteriorly) Cardiovascular: RRR, no murmur, no edema Gastrointestinal (Abdomen): Inspection/Auscultation: normal bowel sounds; abdomen not distended Percussion/Palpation: + abdomen tender (mildly, diffusely tender to deep palpation) and abdomen soft Skin: Trauma: + contusion (He has a large bruise on the dependent aspect of his right leg) Neurologic: + obtunded Eyes open spontaneously. Moaned and withdrew to abdominal palpation Lymphatic: no cervical lymphadenopathy Results & Data Vital Signs (Past 12 Hours) Vital Signs Temp Pulse Pulse Resp BP BP Pulse Ox 01/04/20 16:00 65 01/04/20 15:37 36.6 C 71 23 136/61 98 01/04/20 13:11 36.6 C 65 18 127/62 94 01/04/20 08:00 65 01/04/20 07:55 36.9 C 72 20 152/69 H 99 Laboratory Results Abnormal lab results 01/03/20 01/03/20 01/04/20 Range/Units 18:02 20:55 00:24 WBC (4.8-10.8) K/uL RBC (4.7-6.1) M/uL Hgb (14.0-18.0) g/dL Hct (42-52) % RDW Std Deviation (36.4-46.3) fL RDW Coeff of [place] (11.5-14.5) % Absolute Nucleated RBC (0-0) K/uL Chloride (98-107) mmol/L BUN (7-18) mg/dl BUN/Creatinine Ratio (10-20) Glucose (70-99) mg/dl POC Glucose 135 H 124 H 117 H (70-99) mg/dl Calcium (8.5-10.1) mg/dl 01/04/20 01/04/20 01/04/20 Range/Units 05:52 05:52 06:06 WBC 15.19 H (4.8-10.8) K/uL RBC 2.76 L (4.7-6.1) M/uL Hgb 8.2 L (14.0-18.0) g/dL Hct 25.4 L (42-52) % RDW Std Deviation 56.1 H (36.4-46.3) fL RDW Coeff of [place] 17.9 H (11.5-14.5) % Absolute Nucleated RBC 0.08 H (0-0) K/uL Chloride 116 H (98-107) mmol/L BUN 45 H (7-18) mg/dl BUN/Creatinine Ratio 67.9 H (10-20) Glucose 114 H (70-99) mg/dl POC Glucose 116 H (70-99) mg/dl Calcium 7.7 L (8.5-10.1) mg/dl 01/04/20 01/04/20 Range/Units 13:04 15:20 WBC (4.8-10.8) K/uL RBC (4.7-6.1) M/uL Hgb 8.2 L (14.0-18.0) g/dL Hct 25.2 L (42-52) % RDW Std Deviation (36.4-46.3) fL RDW Coeff of [place] (11.5-14.5) % Absolute Nucleated RBC (0-0) K/uL Chloride (98-107) mmol/L BUN (7-18) mg/dl BUN/Creatinine Ratio (10-20) Glucose (70-99) mg/dl POC Glucose 130 H (70-99) mg/dl Calcium (8.5-10.1) mg/dl
[2020-01-04] MEDS: INSULIN GLARGINE SOLOSTAR 100 UNITS/ML 3 ML PEN SC SCH (20:41)
[2020-01-04] MEDS: LIDOCAINE 5% 1 PATCH TD SCH (20:43)
== END 2020-01-05 03:05 | disposition short-term general hospital (02) | DRG 177 ==
LOC: ED 16:37 → 2E 20:53 → SUATTDRO 20:53 → 2E 21:19

== ENCOUNTER 2020-02-18 02:07 | Inpatient (IN) ==
--- NOTE | 2020-02-18 02:28 | Emergency Department Note ---
History of Present Illness General Chief complaint: Fall Stated complaint: fall/weakness Source: patient, EMS and old records reviewed Mode of arrival: EMS Limitations: other (Hard of hearing) History of Present Illness Provider complaint: Multiple falls Onset (ago): week(s) 1 Associated symptoms: + cough and + weakness; no chest pain and no shortness of breath Treatments prior to arrival: none This is a 74-year-old male who presents via EMS due to multiple falls over the last week, including 3 falls in the last 24 hours. EMS reports they have been to their house numerous times to assist him up off the floor. They state his significant other states he has been increasingly weak and has difficulty standing up and will often times fall. Patient has a significant past medical history, most notably over the last 6 to 7 months when he had developed pneumonia, sepsis, had a stroke, aspirated, and subsequently underwent a PEG tube placement which resulted in hemoperitoneum. BLS providers gave us copies of a timeline that the significant other had printed out to show his hospitalizations in the last 2 months. Patient states he just feels weak when he stands up. Patient denies any current injury. States his left knee hurts but otherwise has no complaints of pain or trouble breathing. Patient states he was recently sent home from rehab. Records indicate the patient was at rehab for several weeks at [facility]. Patient is a poor and difficult historian. Pt seen during a time of high acuity and national emergency pandemic while wearing PPE. Home Medications Home Medications Medication Instructions Recorded Confirmed Type acetaminophen 160 mg/5 mL oral See Rx Instructions PO QID 02/09/20 02/18/20 History suspension lidocaine 4 % topical patch 1 patch TOP DAILY 02/09/20 02/18/20 History prednisone 10 mg tablet See Rx Instructions PO DAILY 02/09/20 02/18/20 History tramadol 50 mg tablet 50 mg PO Q6H PRN 02/09/20 02/18/20 History atorvastatin 40 mg tablet 40 mg PO DAILY #90 tab 02/11/20 02/18/20 Rx citalopram 10 mg tablet 10 mg PO DAILY #90 tab 02/11/20 02/18/20 Rx omeprazole 40 mg capsule,delayed 40 mg PO BID #180 cap 02/11/20 02/18/20 Rx release acetaminophen [Tylenol Arthritis 650 mg PO Q8H PRN 02/18/20 02/18/20 History Pain] [id number] HMB 1 ea PO BID 02/18/20 02/18/20 History [Will] cranberry 2,500 mg PO DAILY 02/18/20 02/18/20 History fluticasone furoate-vilanterol 1 inh INHALATION DAILY 02/18/20 02/18/20 History ipratropium-albuterol 3 ml INHALATION Q4H PRN 02/18/20 02/18/20 History sulfamethoxazole-trimethoprim 1 tab PO 3XWK 02/18/20 02/18/20 History [Bactrim DS] tamsulosin 0.4 mg PO QPM 02/18/20 02/18/20 History Allergies Allergy/AdvReac Type Severity Reaction Status Date / Time fluticasone Allergy Mild Hives Verified 02/18/20 02:26 salmeterol Allergy Mild Hives Verified 02/18/20 02:26 Past Med/Surg History Medical History Arthritis Bronchitis CAD (coronary artery disease) (Chronic) COPD (chronic obstructive pulmonary disease) (Chronic) COPD (chronic obstructive pulmonary disease) Diabetes mellitus (Chronic) Elevated PSA History of CHF (congestive heart failure) History of respiratory failure Knee pain Sleep apnea (Chronic) 09/14/2014- Urinary incontinence Surgical History H/O knee surgery History of bronchoscopy History of cardiac catheterization 05/01/2010-PCI of OM 2 with CAROLINE History of sinus surgery PEG (percutaneous endoscopic gastrostomy) status Family History Mother Heart disease Hypertension Father Emphysema, unspecified Denies family history of Ovarian cancer Prostate cancer Breast cancer Lung cancer Colorectal cancer Social History Preferred Language: Croatian Communication Ability: Unable Visual Impairment: No Limitations Hearing Ability: Use of Hearing Aid 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 Son yemi lives within a few minutes current occupational status: retired Feels Safe at Home: Yes Smoking Status: Former smoker Tobacco Type: cigarettes and smokeless tobacco ; Age Started Using Tobacco: 15 ; Age Quit Using Tobacco: 30 ; packs per day: 2 ; Number of Years Since Quit: 44 ; Second Hand Exposure: Yes ; Hx Alcohol Use: No Hx Substance Use: No Diet Comment: regular caffeine: Yes during the past year weight has: decreased > 10 lbs Dental Care, Regularly: Yes Physical Activity Frequency: Does not Exercise Seatbelt Use: always Sunscreen Use: No Review of Systems See HPI for pertinent positives & negatives. and A total of 10 systems reviewed and were otherwise negative Physical Exam Vital Signs Vital Signs - 24 hr 02/18/20 02:10 02/18/20 02:13 02/18/20 02:16 Temperature 36.5 C Temperature Source Oral Pulse Rate 84 87 Pulse Rate from SpO2 Sensor 83 Respiratory Rate 22 24 Respiratory Effort / Characteristics Non-Labored Spontaneous Respiratory Depth Normal Respiratory Pattern Regular Blood Pressure 160/83 H Blood Pressure Mean 108 Blood Pressure Position Lying Pulse Oximetry 99 98 99 Oxygen Delivery Method Room Air Room Air Room Air Oxygen Flow Rate Sepsis Recent Fever Within 48 Hours No Sepsis Action Taken by Nursing No Action Required 02/18/20 02:30 02/18/20 02:51 02/18/20 02:53 Temperature Temperature Source Pulse Rate 86 71 Pulse Rate from SpO2 Sensor 87 72 Respiratory Rate 22 22 Respiratory Effort / Characteristics Respiratory Depth Respiratory Pattern Blood Pressure 151/75 H Blood Pressure Mean 107 Blood Pressure Position Pulse Oximetry 99 98 100 Oxygen Delivery Method Room Air Nasal Cannula Nasal Cannula Oxygen Flow Rate 2 2 Sepsis Recent Fever Within 48 Hours Sepsis Action Taken by Nursing 02/18/20 03:00 02/18/20 03:38 02/18/20 04:21 Temperature Temperature Source Pulse Rate 81 78 65 Pulse Rate from SpO2 Sensor 81 78 65 Respiratory Rate 22 13 15 Respiratory Effort / Characteristics Respiratory Depth Respiratory Pattern Blood Pressure 137/81 136/70 132/71 Blood Pressure Mean 106 95 98 Blood Pressure Position Pulse Oximetry 100 99 98 Oxygen Delivery Method Nasal Cannula Room Air Room Air Oxygen Flow Rate 2 Sepsis Recent Fever Within 48 Hours Sepsis Action Taken by Nursing GENERAL: alert, well appearing, well nourished, no distress, non-toxic, mask over nose and mouth HEAD: nc/at, no moeller sign, no raccoon eyes EYE EXAM: normal conjunctiva, PERRL and EOM's grossly intact OROPHARYNX: no exudate, no erythema, lips, buccal mucosa, and tongue normal and mucous membranes are moist NECK: supple, no nuchal rigidity, no adenopathy, non-tender, FROM LUNGS: Decreased breath sounds to auscultation. Normal chest wall mechanics, no w/r/r, no increased work of breathing, no tachypnea, no retractions HEART: no murmurs, S1 normal and S2 normal ABDOMEN: abdomen soft, non-tender, normo-active bowel sounds, no masses, no laxmi ound or guarding. PEG tube noted in the left upper quadrant, well-healed, no discharge or draining surrounding stoma, umbilical hernia noted in addition which is small, nontender, and reducible BACK: Back is symmetrical on inspection and there is no deformity, no midline tenderness, no CVA tenderness. SKIN: no rashes and no bruising UPPER EXTREMITIES: upper extremities are grossly normal. FROM, nml pulses b/l. LOWER EXTREMITIES: No pitting edema. FROM, nml pulses b/l. Mild edema noted to the left knee, no ecchymosis, no crepitus, patient is able to bend the knee. NEURO EXAM: Normal sensorium, cranial nerves II-XII grossly intact, normal speech, no gross weakness of arms, no gross weakness of legs. Gross sensation intact. Course Course 0250: Called his significant other Tammy Hernandez who he lives with. Pt is still using a walker. Initially fell after getting up to use the bathroom and wasn't using the walker. Then fell out of bed in his sleep. [facility] home health nurse saw him 2 days ago and felt he had abnormal lung sounds on the left. Has labs done weekly on Saturday and . No blood thinners or ASA right now. Has appt with hematology on Saturday. Has been on prednisone to stop the bleeding in the stomach from the PEG tube insertion. States pt is DNR. No recent fevers/chills. Has chronic left knee pain. Not using the PEG tube, pt is eating. Difficulty controlling bladder function. +urgency. Has BM's every other day. Has been constipated recently. No sick contacts. No known COVID- 19 exposures. States every year he gets bronchitis bc he has a hx of COPD. She states she checks pulse ox and it's usually 97% and recently went down to 93%. She has been giving him nebs every 4 hours. No home oxygen. She states he wheezes after he eats or walks. No increased cough. No LOC with falls. He did hit his head in a recent fall. 0400: I updated Tammy, the patient's significant other on my concern for his condition and benefits of inpatient treatment at this time. She is in agreement. 0410: I updated the patient on results, and concern for his elevated white blood cell count. Patient in agreement with treatment plan. 0530: Case discussed with Dr. Forte for additional inpatient management and evaluation. Administered Medications Vancomycin HCl 2,000 mg/ (Sodium Chloride) 540 mls @ 200 mls/hr IV NOW ONE Stop: 02/18/20 06:41 Last Admin: 02/18/20 04:18 Dose: 200 mls/hr Documented by: [id number] Sodium Chloride (Nss 1000ml) 1,000 mls @ 200 mls/hr IV .Q5H ADOLFO Stop: 03/19/20 04:59 Last Admin: 02/18/20 05:01 Dose: 200 mls/hr Documented by: [id number] Ioversol (Optiray 320 125ml) 125 ml IV ONCE PRN PRN Reason: Interaction Checking Stop: 02/22/20 03:44 Last Admin: 02/18/20 03:45 Dose: 119 ml Documented by: [id number] Discontinued Medications Doxycycline Hyclate (Vibramycin) 100 mg PO NOW STA Stop: 02/18/20 04:35 Last Admin: 02/18/20 04:51 Dose: 100 mg Documented by: [id number] Cefepime HCl 2,000 mg/ Syringe 20 mls @ 5 mls/min IV NOW ONE Stop: 02/18/20 04:03 Last Admin: 02/18/20 04:15 Dose: 5 mls/min Documented by: [id number] Medical Decision Making Differential Diagnosis Differential Diagnosis includes but is not limited to dehydration, stroke, anemia, hypoglycemia, hyponatremia, hypernatremia, urinary tract infection, pneumonia, bronchitis, sepsis, gastroenteritis, additional abdominal pathology, metabolic abnormalities, major intracranial, cervical, spinal, thoracic, abdominal, pelvic and neurologic injury. Fracture, contusion, sprain, strain, laceration, abrasions included as well. Medical Records Attestation: I reviewed the patient's medical records. Home Medications Current Medication List: was personally reviewed by me Laboratory Data Attestation: I reviewed the patient's lab results. Result diagrams: 02/18/20 02:40 02/18/20 02:40 Lab Results 02/18/20 02/18/20 02/18/20 Range/Units 02:40 02:40 02:40 WBC 25.30 H (4.8-10.8) K/uL RBC 4.38 L (4.7-6.1) M/uL Hgb 12.2 L (14.0-18.0) g/dL Hct 37.9 L (42-52) % MCV 86.5 (80-100) fL MCH 27.9 (25-34) pg MCHC 32.2 (32-36) g/dL RDW Std Deviation 48.1 H (36.4-46.3) fL RDW Coeff of Katlin 15.1 H (11.5-14.5) % Plt Count 206 (130-400) K/uL MPV 9.8 (7.4-10.4) fL Immature Gran % (Auto) 1.2 % Neut % (Auto) 88.0 % Lymph % (Auto) 3.4 % Pennington % (Auto) 7.4 % Eos % (Auto) 0.0 % Baso % (Auto) 0.0 % Immature Gran # (Auto) 0.30 H (0.00-0.02) K/uL Neut # (Auto) 22.28 H (1.4-6.5) K/uL Lymph # (Auto) 0.85 L (1.2-3.4) K/uL Pennington # (Auto) 1.86 H (0.11-0.59) K/uL Eos # (Auto) 0.00 (0-0.5) K/uL Baso # (Auto) 0.01 (0-0.2) K/uL PT 10.9 (9.0-12.0) Seconds INR 1.0 (0.9-1.1) Sodium 133 L (136-145) mmol/L Potassium 4.0 (3.5-5.1) mmol/L Chloride 104 (98-107) mmol/L Carbon Dioxide 29 (21-32) mmol/L Anion Gap 0 L (3-11) BUN 19 H (7-18) mg/dl Creatinine 0.86 (0.6-1.4) mg/dl Est Cr Clr Drug Dosing 87.0 ml/min Est GFR ( Amer) 99.0 Est GFR (Non-Af Amer) 85.4 BUN/Creatinine Ratio 22.3 H (10-20) Glucose 170 H (70-99) mg/dl Lactate (0.4-2.0) mmol/L Calcium 8.5 (8.5-10.1) mg/dl Magnesium 1.9 (1.8-2.4) mg/dl Total Bilirubin 0.3 (0.2-1) mg/dl AST 12 L (15-37) U/L ALT 47 (12-78) U/L Alkaline Phosphatase 119 H (45-117) U/L Troponin I < 0.015 (0-0.045) ng/ml NT-Pro-B Natriuret Pep 429 (0-900) pg/ml Total Protein 5.7 L (6.4-8.2) gm/dl Albumin 2.9 L (3.4-5.0) gm/dl Globulin 2.8 (2.5-4.0) gm/dl Albumin/Globulin Ratio 1.0 (0.9-2) Lipase 49 L (73-393) U/L Procalcitonin (0-0.5) ng/ml TSH 0.821 (0.300-4.500) uIu/ml Urine Color Urine Appearance (Clear) Urine pH (4.5-7.5) Ur Specific Wilbur (1.000-1.030) Urine Protein (Negative) Urine Glucose (UA) (Negative) Urine Ketones (Negative) Urine Blood (Negative) Urine Nitrite (Negative) Urine Bilirubin (Negative) Urine Urobilinogen (Negative) Ur Leukocyte Esterase (Negative) Influenza Type A (PCR) (Neg) Influenza Type B (PCR) (Neg) 02/18/20 02/18/20 02/18/20 Range/Units 02:40 02:42 02:45 WBC (4.8-10.8) K/uL RBC (4.7-6.1) M/uL Hgb (14.0-18.0) g/dL Hct (42-52) % MCV (80-100) fL MCH (25-34) pg MCHC (32-36) g/dL RDW Std Deviation (36.4-46.3) fL RDW Coeff of Katlin (11.5-14.5) % Plt Count (130-400) K/uL MPV (7.4-10.4) fL Immature Gran % (Auto) % Neut % (Auto) % Lymph % (Auto) % Pennington % (Auto) % Eos % (Auto) % Baso % (Auto) % Immature Gran # (Auto) (0.00-0.02) K/uL Neut # (Auto) (1.4-6.5) K/uL Lymph # (Auto) (1.2-3.4) K/uL Pennington # (Auto) (0.11-0.59) K/uL Eos # (Auto) (0-0.5) K/uL Baso # (Auto) (0-0.2) K/uL PT (9.0-12.0) Seconds INR (0.9-1.1) Sodium (136-145) mmol/L Potassium (3.5-5.1) mmol/L Chloride (98-107) mmol/L Carbon Dioxide (21-32) mmol/L Anion Gap (3-11) BUN (7-18) mg/dl Creatinine (0.6-1.4) mg/dl Est Cr Clr Drug Dosing ml/min Est GFR ( Amer) Est GFR (Non-Af Amer) BUN/Creatinine Ratio (10-20) Glucose (70-99) mg/dl Lactate (0.4-2.0) mmol/L Calcium (8.5-10.1) mg/dl Magnesium (1.8-2.4) mg/dl Total Bilirubin (0.2-1) mg/dl AST (15-37) U/L ALT (12-78) U/L Alkaline Phosphatase (45-117) U/L Troponin I (0-0.045) ng/ml NT-Pro-B Natriuret Pep (0-900) pg/ml Total Protein (6.4-8.2) gm/dl Albumin (3.4-5.0) gm/dl Globulin (2.5-4.0) gm/dl Albumin/Globulin Ratio (0.9-2) Lipase (73-393) U/L Procalcitonin < 0.05 (0-0.5) ng/ml TSH (0.300-4.500) uIu/ml Urine Color Yellow Urine Appearance Clear (Clear) Urine pH 6.5 (4.5-7.5) Ur Specific Wilbur 1.019 (1.000-1.030) Urine Protein Negative (Negative) Urine Glucose (UA) 3+ H (Negative) Urine Ketones Negative (Negative) Urine Blood Negative (Negative) Urine Nitrite Negative (Negative) Urine Bilirubin Negative (Negative) Urine Urobilinogen Negative (Negative) Ur Leukocyte Esterase Negative (Negative) Influenza Type A (PCR) Neg for Influ A (Neg) Influenza Type B (PCR) Neg for Influ B (Neg) 02/18/20 Range/Units 03:57 WBC (4.8-10.8) K/uL RBC (4.7-6.1) M/uL Hgb (14.0-18.0) g/dL Hct (42-52) % MCV (80-100) fL MCH (25-34) pg MCHC (32-36) g/dL RDW Std Deviation (36.4-46.3) fL RDW Coeff of Katlin (11.5-14.5) % Plt Count (130-400) K/uL MPV (7.4-10.4) fL Immature Gran % (Auto) % Neut % (Auto) % Lymph % (Auto) % Pennington % (Auto) % Eos % (Auto) % Baso % (Auto) % Immature Gran # (Auto) (0.00-0.02) K/uL Neut # (Auto) (1.4-6.5) K/uL Lymph # (Auto) (1.2-3.4) K/uL Pennington # (Auto) (0.11-0.59) K/uL Eos # (Auto) (0-0.5) K/uL Baso # (Auto) (0-0.2) K/uL PT (9.0-12.0) Seconds INR (0.9-1.1) Sodium (136-145) mmol/L Potassium (3.5-5.1) mmol/L Chloride (98-107) mmol/L Carbon Dioxide (21-32) mmol/L Anion Gap (3-11) BUN (7-18) mg/dl Creatinine (0.6-1.4) mg/dl Est Cr Clr Drug Dosing ml/min Est GFR ( Amer) Est GFR (Non-Af Amer) BUN/Creatinine Ratio (10-20) Glucose (70-99) mg/dl Lactate 3.3 H* (0.4-2.0) mmol/L Calcium (8.5-10.1) mg/dl Magnesium (1.8-2.4) mg/dl Total Bilirubin (0.2-1) mg/dl AST (15-37) U/L ALT (12-78) U/L Alkaline Phosphatase (45-117) U/L Troponin I (0-0.045) ng/ml NT-Pro-B Natriuret Pep (0-900) pg/ml Total Protein (6.4-8.2) gm/dl Albumin (3.4-5.0) gm/dl Globulin (2.5-4.0) gm/dl Albumin/Globulin Ratio (0.9-2) Lipase (73-393) U/L Procalcitonin (0-0.5) ng/ml TSH (0.300-4.500) uIu/ml Urine Color Urine Appearance (Clear) Urine pH (4.5-7.5) Ur Specific Wilbur (1.000-1.030) Urine Protein (Negative) Urine Glucose (UA) (Negative) Urine Ketones (Negative) Urine Blood (Negative) Urine Nitrite (Negative) Urine Bilirubin (Negative) Urine Urobilinogen (Negative) Ur Leukocyte Esterase (Negative) Influenza Type A (PCR) (Neg) Influenza Type B (PCR) (Neg) Imaging Data Attestation: I personally reviewed and interpreted this imaging study as follows: My Impression: Left knee: 2 views interpreted by me, no acute fracture or dislocation Pelvis: no acute fracture/dislocation Radiologist's Impression: CT head: No intracranial hemorrhage, mass-effect, or edema. Severe chronic microvascular ischemic changes, chronic lacunar infarcts in the basal ganglia, and global parenchymal atrophy. No fracture. Radiologist: Kash Ulrich MD CT C-spine: No fracture or malalignment. Radiologist: Kash Ulrich MD CTA chest: No pulmonary embolism or acute aortic syndrome. Bronchovascular groundglass within the lingula and left lower lobe. Consider atypical infection. Scattered atelectasis within the middle lobe and lower lobes. No fracture. Radiologist: Kash Ulrich MD ECG Data Attestation: I personally reviewed and interpreted this ECG as follows: Indication: + weakness Rate (beats per minute): 86 Rhythm: + normal sinus ECG Intervals/blocks: + Right Bundle branch block and + Prolonged QT ECG Creighton: + Normal ECG ST segments: + Nonspecific ST abnormalities (Changes consistent with right bundle branch block) Blood Pressure Blood Pressure Findings: Elevated blood pressure Blood Pressure Disposition: further management by hospitalist JULY Narrative An order was placed for continuous cardiac monitoring. The monitor shows a rate of 72 with normal sinus rhythm. Pt here for weakness and recurrent falls from home. Pt's only complaint is of left knee pain. Additional history obtained from significant other and EMR. Pt with complicated medical history. Pt recently home from [facility] on 02/03. No other changes until the last 2 days when pt was so weak he began falling. Labs performed on Saturday showed a WBC of 13, likely mildly elevated from prednisone use, however today was 25. Pt afebrile, VS stable throughout. Possible evolving atypical pneumonia on CT chest. No PE. Trop negative. Pt and S.O. deny syncope in these events. Lactic acid mildly elevated however procalcitonin negative. Concern for possible evolving sepsis. Pt and S.O. made aware of all results and were in agreement with the plan. Case discussed with hospitalist. Impression & Plan Pneumonia, Leukocytosis, Fall, CHI (closed head injury), Generalized weakness Discharge Plan Visit Data *Final* Discharge Date/Time: 02/18/20 05:35 Chief Complaint: Fall Stated Complaint: fall/weakness ED Provider: Petty Marie Discharge Problem: Pneumonia, Leukocytosis, Fall, CHI (closed head injury), Generalized weakness Patient Disposition: Admitted As Inpatient Condition: Fair Discharge Instructions Interventions: ED Discharge Assessment Last Done: 02/18/20 05:35 Discharge Problem: Pneumonia Qualifiers: Pneumonia type: due to unspecified organism Laterality: left Lung location: lower lobe of lung Qualified Code(s): J18.9 - Pneumonia, unspecified organism Leukocytosis Qualifiers: Leukocytosis type: unspecified Qualified Code(s): D72.829 - Elevated white blood cell count, unspecified Fall Qualifiers: Encounter type: initial encounter Qualified Code(s): W19.XXXA - Unspecified fall, initial encounter CHI (closed head injury) Qualifiers: Encounter type: initial encounter Qualified Code(s): S09.90XA - Unspecified injury of head, initial encounter
[2020-02-18 02:53] LABS: Hematocrit (blood only) 37.9 % (42-52); Hemoglobin 12.2 g/dL (14.0-18.0); Mean Corpuscular Hemoglobin 27.9 pg (25-34); Mean Corpuscular Hgb Conc 32.2 g/dL (32-36); Mean Corpuscular Volume 86.5 fL (80-100); Mean Platelet Volume 9.8 fL (7.4-10.4); Platelet Count 206 K/uL (130-400); RDW Coefficient of Variation 15.1 % (11.5-14.5); RDW Standard Deviation 48.1 fL (36.4-46.3); Red Blood Count 4.38 M/uL (4.7-6.1)
[2020-02-18 02:57] LABS: Appearance Urine Clear (Clear); Bilirubin Urine Negative (Negative); Blood Urine Negative (Negative); Color Urine Yellow; Glucose Urine UA 3+ (Negative); Ketones Urine Negative (Negative); Leukocyte Esterase Urine Negative (Negative); Nitrite Urine Negative (Negative); Protein Urine Negative (Negative); Specific Gravity Urine 1.019 (1.000-1.030); Urobilinogen Urine Negative (Negative); pH Urine 6.5 (4.5-7.5)
[2020-02-18 03:03] LABS: Prothrombin Time 10.9 Seconds (9.0-12.0)
[2020-02-18 03:14] LABS: Alanine Aminotransferase 47 U/L (12-78); Albumin Level 2.9 gm/dl (3.4-5.0); Anion Gap 0 (3-11); Aspartate Aminotransferase 12 U/L (15-37); BUN Creatinine Ratio 22.3 (10-20); Blood Urea Nitrogen 19 mg/dl (7-18); Calcium 8.5 mg/dl (8.5-10.1); Carbon Dioxide 29 mmol/L (21-32); Chloride 104 mmol/L (98-107); Est GFR (Non-African American) 85.4; Glucose 170 mg/dl (70-99); Lipase 49 U/L (73-393); Magnesium 1.9 mg/dl (1.8-2.4); Sodium 133 mmol/L (136-145)
[2020-02-18 03:16] LABS: Basophils # (auto) 0.01 K/uL (0-0.2); Immature Granulocytes % (auto) 1.2 %; Lymphocytes # (auto) 0.85 K/uL (1.2-3.4); Lymphocytes % (auto) 3.4 %; Monocytes # (auto) 1.86 K/uL (0.11-0.59); Monocytes % (auto) 7.4 %; Neutrophils # (auto) 22.28 K/uL (1.4-6.5)
[2020-02-18 03:22] LABS: Influenza A virus by PCR Neg for Influ A (Neg); Influenza B virus by PCR Neg for Influ B (Neg)
[2020-02-18 03:25] LABS: Alkaline Phosphatase 119 U/L (45-117); Bilirubin,Total 0.3 mg/dl (0.2-1); Globulin 2.8 gm/dl (2.5-4.0); NT Pro B Type Natriuretic Pept 429 pg/ml (0-900); Thyroid Stimulating Hormone 0.821 uIu/ml (0.300-4.500); Total Protein 5.7 gm/dl (6.4-8.2); Troponin I < 0.015 ng/ml (0-0.045)
[2020-02-18] MEDS ORDERED: OPTIRAY 320 125ml IV PRN (03:45)
[2020-02-18] MEDS ORDERED: CEFEPIME 2,000 MG in SYRINGE 7.5 ML IV ONE (04:00)
[2020-02-18] MEDS ORDERED: VANCOMYCIN HCL 2,000 MG in SODIUM CHLORIDE 0.9% 500 ML IV ONE (04:00)
[2020-02-18] MEDS ORDERED: DOXYCYCLINE HYCLATE 100 MG CAP PO STA (04:34)
[2020-02-18] MEDS ORDERED: SODIUM CHLORIDE 0.9% 1000ML 1,000 ML IV SCH (05:00)
--- NOTE | 2020-02-18 05:31 | History & Physical Report ---
Date of Service February 18, 2020 Assessment & Plan (1) Generalized weakness: Mr. Lassiter is a medically complicated 74 yo M with multiple recent hospital admissions and acute rehab stay, admitted for evaluation of progressive generalized weakness, found to have PNA. Overall prognosis is poor. During most recent admission, palliative care was strongly recommended, although it does not appear Mr. Lassiter was evaluated by this team. Patient suspected to be recurrently aspirating (suspected cause of current PNA) despite PEG placement. Patient would benefit from palliative consult for addressing goals of care and how feeds will be handled. Consult placed. 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 Complicated by aspiration PNA, oropharyngeal dysphagia requiring PEG tube placement, left sided weakness (risk factor for mechanical falls). Patient completed recent acute rehab stint. Continue statin. Cardiac: * Hx paroxysmal A-fib. Likely cause of previous stroke. Patient not on anticoagulation (contraindicated) or rate control agent at this time. Sinus rhythm on monitor, rate 67 on exam. * Hx CAD - continue home statin. trop undetectable on admission. EKG ordered Respiratory: * Pneumonia - Patient afebrile with normal RR and good oxygen saturation on room air. WBC elevated on admission with neutrophil predominance. Chest CT showing ground glass consolidation of left lower lobe. Per review of [facility] discharge summary, patient has been eating by mouth despite PEG tube placement. PNA likely to be due to recurrent aspiration. Continue IV vancomycin, Cefepime, and doxycycline. We will keep patient NPO at this time. IV hydration. * Hx COPD - home medication regimen is unclear; perhaps can provider further history once she arrives * Hx HEYDI- CPAP ordered for use at night GI: * Hx PEG tube placement - placed following CVA at [facility] - patient had difficulty tolerating even minimal tube feeds during his most recent admission despite trial of Reglan. Per review of [facility] d/c summary, patient was eating food by mouth while at rehab. Will make patient NPO for now; speech did evaluate him during most recent admission; consider consulting speech for repeat eval, although if overall prognosis is pointing towards p alliative care, comfort feeds may be ultimately permitted. * Gastric Motility Disorder - patient had difficulty tolerating even minimal tube feeds during his past admission, despite trial of Reglan. RENAL/LYTES: * Hyponatremia - sodium 133 on admission. Anticipate improvement with IV fluids. Follow BMP. : * Hx of BPH - continue home dose flomax * UA not suspicious for infection ENDO: * Hx diabetes. Glycemic consult placed MSK: * several recent mechanical falls. C-spine, pelvis Xray and knee xray ordered, official read pending. Tylenol prn for pain. HEME: * Hx Acute blood loss anemia secondary to recent upper GI bleeds. Hgb at 12.2 on admission, improved from 8-9 range during his previous admission. Follow up CT scans did begin to show resolution of rectal sheath hematoma, although bleeds make patient poor candidate for anticoagulation. Continue protonix 40mg BID. . * Hx + Lupus anticoagulant - patient not a candidate at present for anticoagulation (see above). 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 We will convert to IV solu-Medrol 60mg, q6hr while NPO ID: * WBC elevated on admission, neutrophil predominance, suspected pulmonary source. Procal negative. Lactate elevated to 3.3. SIRS criteria not met. Antimicrobials as above. Trend lactate. * On review of med rec, patient had been on prophylactic Bactrim therapy, although the reason for this is unclear. He has no MRSA infection on our hospital record. He is not on dialysis. Possibly for suspected recurrent aspiration? Code Status: DNR/DNI Dispo: Med/Surg with Tele; PT/OT ordered. CM consult placed for discharge planning. Diet: NPO at this time given suspicion of aspiration PNA DVT ppx: chemical contraindicated in setting of recent bleeds; SCDs History of Present Illness Primary Care Provider: ROWAN Melo Mr. Lassiter is a 74 yo medically complicated gentleman who presented to the [facility] ED for evaluation of progressive weakness over the past week, resulting in 3 mechanical falls. Mr. Lassiter is a poor historian and lethargic when interviewed; unfortunately no family was present at bedside for additional history. He recently completed a 10 day stint of acute rehab at [facility], discharged 02/03. He was sent to [facility] following an unfortunate series of medical events over the course of the past 6-7 months. His troubles started with a pneumonia from which he became septic. Subsequently, he suffered a CVA, which was complicated by aspiration PNA and has left him with left sided weakness and oropharyngeal dysphagia, requiring PEG tube placement. Etiology of his stroke was felt to be embolic secondary to A-fib, which was acutely managed with a heparin drip. PEG tube placement incited a hemoperitoneum and rectus sheath hematoma, for which he was transferred from [facility] to [facility] for further management. Additionally, Mr. Lassiter has multiple underlying medical conditions complicating his overall prognosis. He is + for Lupus Anticoagulant for which he follows with [facility], acute blood loss anemia related to recent upper GI bleeds, gastric motility disorder, diabetes mellitus, CAD, COPD, HEYDI and BPH. Although his history would qualify him for anticoagulation, this has been withheld given two recent bleeds when trialed on blood thinners, one after being started on a DOAC and a second while on the heparin drip. He was evaluated by [facility] within the past year for IVC filter placement but deemed not a candidate. ED Course: Afeb. Hr 78. 136/70. RR 13. Satting 99 on RA. WBC elevated to 25 with neutrophil predominance. Procal normal. Lactate 3.3. Flu negative. Respiratory viral panel ordered. UA without signs of infection. Blood cultures obtained. Hgb 12.2, MCV 86. Sodium slightly low at 133. Troponin undetectable. EKG ordered. Head CT negative for acute process but with extensive microvascular disease (official read pending). C-spine CT without fractures, official read pending. Chest CTA without evidence of PE, but with groundglass consolidation in LLL and atelectasis throughout bilateral lung serrano. Pelvis Xray obtained. Knee Xray obtained. He was started on Vancomycin, Cefepime, and Doxycycline. Given bolus of 1 liter of normal saline. Allergies Allergy/AdvReac Type Severity Reaction Status Date / Time fluticasone Allergy Mild Hives Verified 02/18/20 02:26 salmeterol Allergy Mild Hives Verified 02/18/20 02:26 Home Medications Home Medications Medication Instructions Recorded Confirmed Type acetaminophen 160 mg/5 mL oral See Rx Instructions PO QID 02/09/20 02/18/20 History suspension lidocaine 4 % topical patch 1 patch TOP DAILY 02/09/20 02/18/20 History prednisone 10 mg tablet See Rx Instructions PO DAILY 02/09/20 02/18/20 History tramadol 50 mg tablet 50 mg PO Q6H PRN 02/09/20 02/18/20 History atorvastatin 40 mg tablet 40 mg PO DAILY #90 tab 02/11/20 02/18/20 Rx citalopram 10 mg tablet 10 mg PO DAILY #90 tab 02/11/20 02/18/20 Rx omeprazole 40 mg capsule,delayed 40 mg PO BID #180 cap 02/11/20 02/18/20 Rx release acetaminophen [Tylenol Arthritis 650 mg PO Q8H PRN 02/18/20 02/18/20 History Pain] [id number] HMB 1 ea PO BID 02/18/20 02/18/20 History [Will] cranberry 2,500 mg PO DAILY 02/18/20 02/18/20 History fluticasone furoate-vilanterol 1 inh INHALATION DAILY 02/18/20 02/18/20 History ipratropium-albuterol 3 ml INHALATION Q4H PRN 02/18/20 02/18/20 History sulfamethoxazole-trimethoprim 1 tab PO 3XWK 02/18/20 02/18/20 History [Bactrim DS] tamsulosin 0.4 mg PO QPM 02/18/20 02/18/20 History Past Med/Surg History Medical History Arthritis Bronchitis CAD (coronary artery disease) (Chronic) COPD (chronic obstructive pulmonary disease) (Chronic) COPD (chronic obstructive pulmonary disease) Diabetes mellitus (Chronic) Elevated PSA History of CHF (congestive heart failure) History of respiratory failure Knee pain Sleep apnea (Chronic) 09/14/2014- Urinary incontinence Surgical History H/O knee surgery History of bronchoscopy History of cardiac catheterization 05/01/2010-PCI of OM 2 with CAROLINE History of sinus surgery PEG (percutaneous endoscopic gastrostomy) status Family History Mother Heart disease Hypertension Father Emphysema, unspecified Denies family history of Ovarian cancer Prostate cancer Breast cancer Lung cancer Colorectal cancer Social History Preferred Language: Estonian Communication Ability: Unable Visual Impairment: No Limitations Hearing Ability: Use of Hearing Aid 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 Son yemi lives within a few minutes current occupational status: retired Other Information That Helps Us Care for You: No Feels Safe at Home: Yes Safety Concerns: Feels Safe At This Time Smoking Status: Former smoker Tobacco Type: cigarettes and smokeless tobacco ; Age Started Using Tobacco: 15 ; Age Quit Using Tobacco: 30 ; packs per day: 2 ; Number of Years Since Quit: 44 ; Second Hand Exposure: Yes ; Hx Alcohol Use: No Hx Substance Use: No Diet Comment: regular caffeine: Yes during the past year weight has: decreased > 10 lbs Dental Care, Regularly: Yes Physical Activity Frequency: Does not Exercise Seatbelt Use: always Sunscreen Use: No Review of Systems Review of Systems: All systems reviewed & are unremarkable except as noted in HPI & below Physical Exam Constitutional: WD/WN, vitals as above + lethargic Eyes: PERRL, conjunctivae normal, anicteric sclerae ENMT: external ear and nose normal, oropharynx normal Neck: normal visual inspection and trachea midline Respiratory: normal respiratory effort Auscultation: + rhonchi (diffusely throughout lung serrano) and + wheezes Cardiovascular: Rate/Rhythm: regular rate and regular rhythm Heart Sounds: normal S1 and normal S2; no murmur Extremities: + pedal edema (+2 bilaterally) Gastrointestinal (Abdomen): Inspection/Auscultation: + abdomen distended and normal bowel sounds Percussion/Palpation: abdomen nontender and no guarding + PEG tube present Skin: no rashes, warm and dry Results & Data Results & Data ([facility]) Vital Signs (Past 12 Hours) Vital Signs Temp Pulse Resp BP Pulse Ox 02/18/20 05:00 67 15 147/79 H 97 02/18/20 04:21 65 15 132/71 98 02/18/20 03:38 78 13 136/70 99 02/18/20 03:00 81 22 137/81 100 02/18/20 02:53 71 22 151/75 H 100 02/18/20 02:51 98 02/18/20 02:30 86 22 99 02/18/20 02:16 36.5 C 87 24 160/83 H 99 02/18/20 02:13 84 22 98 02/18/20 02:10 99 Code Status & VTE Plan VTE Prophylaxis Plan VTE Prophylaxis will be ordered: No Supervising Physician Co-Signing Physician Notes Attending addendum: I have physically seen this patient, have supervised the medical residents activities, and agree with the H&P unless as otherwise noted. Assessment and Plan: Recurrent aspiration pneumonia- Vancomycin IV and cefepime IV. Duonebs every 4 hours while awake and every 2 hours when necessary. Keep n.p.o. for now. IV fluids. Intolerant of tube feeds at recent admissions Progressive generalized weakness- Multiple medical issues: CVA, paroxysmal defibrillation, CAD, recurrent aspiration pneumonia, HEYDI, COPD. We will consult palliative care. Remainder of orders and notations as noted. Resident Activity Tracking Resident Involvement: Resident Care Provided Care Provided: Adult Hospital Medicine
[2020-02-18 06:06] LABS: Adenovirus PCR Not Detected (NotDetected); Bordetella parapertussis PCR Not Detected (NotDetected); Bordetella pertussis PCR Not Detected (NotDetected); Chlamydia pneumoniae PCR Not Detected (NotDetected); Coronavirus 229E PCR Not Detected (NotDetected); Coronavirus HKU1 PCR Not Detected (NotDetected); Coronavirus NL63 PCR Not Detected (NotDetected); Coronavirus OC43PCR Not Detected (NotDetected); Human Metapneumovirus PCR Not Detected (NotDetected); Influenza A PCR Not Detected (NotDetected); Influenza B PCR Not Detected (NotDetected); Mycoplasma pneumoniae PCR Not Detected (NotDetected); Parainfluenza Virus 1 PCR Not Detected (NotDetected); Parainfluenza Virus 2 PCR Not Detected (NotDetected); Parainfluenza Virus 3 PCR Not Detected (NotDetected); Parainfluenza Virus 4 PCR Not Detected (NotDetected); Respiratory Syncytial VirusPCR Not Detected (NotDetected); Rhinovirus/Enterovirus PCR Not Detected (NotDetected)
[2020-02-18] MEDS ORDERED: CEFEPIME CONSULT ACTIVE PRN (06:39)
[2020-02-18] MEDS ORDERED: VANCOMYCIN CONSULT ACTIVE PRN ×2 (06:39→06:58)
[2020-02-18] MEDS ORDERED: ALBUT/IPRATROP 3MG/0.5MG NEB 3 ML VIAL INH PRN (06:39)
[2020-02-18] MEDS ORDERED: PHARMACY GLYCEMIC MGMT CONSULT PRN (06:43)
[2020-02-18] MEDS ORDERED: ACETAMINOPHEN 325 MG TAB PO PRN (06:44)
--- NOTE | 2020-02-18 07:01 | CT Scan Report ---
CT SCAN OF THE BRAIN WITHOUT IV CONTRAST CLINICAL HISTORY: Trauma. Fall. COMPARISON STUDY: CT of the brain dated 12/15/2019. TECHNIQUE: Unenhanced axial CT scan of the brain is performed from the vertex to the skull base. A do se lowering technique was utilized adhering to the principles of ALARA. FINDINGS: Brain parenchyma: There are age-related involutional changes noting moderate to advanced confluent s ubcortical and periventricular microangiopathic change. There is no hemorrhage, mass effect, or evide nce of acute territorial ischemia by CT criteria. There are chronic lacunar infarcts identified in th e right cerebellar hemisphere, the left thalamus, and the basal ganglia. Lewis-white matter differenti ation is preserved. No extra-axial fluid collection is seen. Ventricles, sulci, cisterns: Prominent secondary to involutional change. Intracranial vasculature: There is atherosclerotic calcification of the cavernous carotid and vertebr al arteries. Calvarium: The skeletal structures are osteopenic. There is no depressed calvarial fracture. Sinuses and mastoids: There is evidence of previous paranasal sinus surgery. Trace mucosal thickening is seen in the maxillary antra. The remaining visualized paranasal sinuses are clear. The mastoid ai r cells are well pneumatized. Orbits: The bony orbits are grossly intact. There are bilateral ocular lens implants. IMPRESSION: There is no hemorrhage, mass effect, or evidence of acute territorial ischemia by CT greg archer. ACT 112: Negative or not required by law. Electronically signed by: Gregg Gaston M.D. 02/18/2020 7:00 AM
--- NOTE | 2020-02-18 07:17 | XRay Report ---
LEFT KNEE 2 VIEWS CLINICAL HISTORY: Fall. Left knee injury. FINDINGS: AP and crosstable lateral views of the left knee are obtained. No prior studies are availab le for comparison at the time of dictation. The skeletal structures are osteopenic. No fracture is se en. There is moderate to advanced degenerative narrowing at the patellofemoral articulation. Moderate narrowing is also seen in the medial compartment. There are large marginal osteophytes and patellar enthesophytes. There is no joint effusion. Mild soft tissue swelling is seen in the lateral aspect of the distal thigh. A calcified fabella is incidentally noted. IMPRESSION: Osteopenia and degenerative change as above with no acute bony abnormality identified. Electronically signed by: Gregg Gaston M.D. 02/18/2020 7:16 AM
--- NOTE | 2020-02-18 07:22 | XRay Report ---
SINGLE VIEW PELVIS CLINICAL HISTORY: Trauma. Fall. FINDINGS: 2 AP supine pelvic radiographs are correlated with pelvic CT dated 01/02/2020. The skeletal structures are osteopenic. There is no radiographic evidence of acute fracture involving the hips or bony pelvis. Mild degenerative joint space narrowing is seen in the hips. Enthesophytes arise from th e anterior superior iliac spines. Mild degenerative change is noted in the sacroiliac joints. The ove rlying soft tissues are normal as imaged. A surgical clip is noted in the right pelvis. IMPRESSION: No acute bony abnormality is identified. Electronically signed by: Gregg Gaston M.D. 02/18/2020 7:21 AM
--- NOTE | 2020-02-18 07:26 | CT Scan Report ---
CT SCAN OF THE CERVICAL SPINE CLINICAL HISTORY: Trauma. Fall. COMPARISON STUDY: CT angiogram of the neck dated 12/12/2019. TECHNIQUE: CT scan of the cervical spine is performed from the skull base to the upper thoracic spine . Images are reviewed in the axial, sagittal, and coronal planes. IV contrast was not administered fo r this examination. A dose lowering technique was utilized adhering to the principles of ALARA. FINDINGS: Skeletal structures: The skeletal structures are osteopenic. There is no evidence of fracture or subl uxation involving the cervical spine. Vertebral body height and alignment are maintained. There is st raightening of the cervical lordosis. Anterior osteophytes are seen in the lower cervical region. The odontoid process and lateral masses are intact. The atlantoaxial articulation is preserved noting pr oductive degenerative change. The spinous processes appear intact. There is mild multilevel cervical spondylosis. Uncovertebral and facet arthropathy are noted at several levels. Intervertebral discs: Moderate disc space narrowing is seen at C5-C6 and C6-C7. Mild disc space narro wing is noted at the remaining cervical levels. Central canal: Small posterior disc osteophyte complexes at C5-C6 and C6-C7 may contribute to mild ac quired compromise of the central canal. Soft tissues: The prevertebral and paraspinous soft tissues are within normal limits. Calvarium: The visualized calvarium at the skull base appears intact. Brain parenchyma: Partially visualized brain parenchyma the skull base is within normal limits. Sinuses and mastoids: The visualized paranasal sinuses are clear. The mastoid air cells are well pneu matized. Lung apices: Clear as visualized. IMPRESSION: 1. There is no evidence of fracture or subluxation involving the cervical spine. 2. Osteopenia and spondylotic change as above. ACT 112: Negative or not required by law. Electronically signed by: Gregg Gaston M.D. 02/18/2020 7:25 AM
--- NOTE | 2020-02-18 07:38 | CT Scan Report ---
CT ANGIOGRAM OF THE CHEST CLINICAL HISTORY: Dyspnea. COMPARISON STUDY: Chest CT dated 12/26/2019 and 07/30/2014. TECHNIQUE: Following the IV administration of 119 cc of Optiray 320, CT angiogram of the chest was pe rformed from the upper abdomen to the thoracic inlet utilizing the pulmonary embolus protocol. Images are reviewed in the axial, sagittal, and coronal planes. 3-D MIPS images are created and assessed. I V contrast was administered without complication. A dose lowering technique was utilized adhering to the principles of ALARA. The Examination is degraded by motion artifact. There is also streak artifa ct from the arms which cannot elevated above the chest. CT DOSE: 2136.54 mGy.cm FINDINGS: Thyroid: Imaged portions of the thyroid gland are normal in size and attenuation. A 7 mm low-attenuat ion nodule is noted in the left lobe and unchanged from 2014. Thoracic aorta: There is mild atherosclerotic calcification of the thoracic aorta, which is normal in caliber and demonstrates standard 3-vessel arch anatomy. No dissection is seen. Pulmonary vasculature: The pulmonary trunk is normal in caliber. There are no filling defects identif ied in main, lobar, or proximal segmental pulmonary branches to suggest pulmonary embolus. Evaluation of the peripheral branches is degraded by motion artifact and suboptimal contrast opacification. Heart: The heart is top normal in size and without pericardial effusion. There are scattered coronary artery calcifications. Lungs and pleural spaces: Evaluation of the lung parenchyma is modestly degraded by motion artifact. Chronic elevation of the right hemidiaphragm is similar to previous. There are trace pleural effusion s and bibasilar atelectasis. Foci of linear atelectasis/scarring are noted in both lungs. The trachea and central airways are clear. There is minimal patchy groundglass consolidation seen in the left lo wer lobe and lingula (axial images #148 and #136). Mediastinum: There is no mediastinal lymphadenopathy. Radha: Clear. Axillae: There is no axillary lymphadenopathy. Upper abdomen: A gastrostomy tube is in place. Partially visualized upper abdominal viscera is otherw ise grossly unremarkable. Skeletal structures: The skeletal structures are osteopenic. Degenerative change is noted in the shou lders and thoracic spine. No lytic or blastic bony lesions are seen. IMPRESSION: 1. Streak and motion degraded examination. 2. There is no evidence of central pulmonary embolus in the main, lobar, or proximal segmental pulmon ramakrishna arteries. 3. There is minimal patchy groundglass consolidation in the lingula and left lower lobe. Correlate cl inically for evidence of a mild infectious/inflammatory pneumonitis. 4. Trace pleural effusions. 5. Additional findings as above. ACT 112: Negative or not required by law. Electronically signed by: Gregg Gaston M.D. 02/18/2020 7:36 AM
[2020-02-18] MEDS: FLUTICASONE/VILANTEROL 100/25MCG 14 PUFFS/INHALER INH SCH (08:02)
[2020-02-18] MEDS: methylPREDNISolone 60 MG in SYRINGE 0 ML IV SCH ×3 (08:02→20:28)
[2020-02-18] MEDS: SODIUM CHLORIDE 0.9% 1000ML 1,000 ML IV SCH ×2 (08:02→12:57)
[2020-02-18] MEDS: LIDOCAINE 5% 1 PATCH TD SCH (08:03)
[2020-02-18] MEDS ORDERED: ARGININE GLUTAMINE CALCIUM HMB PO SCH (09:00)
[2020-02-18] MEDS ORDERED: CRANBERRY PO SCH (09:00)
[2020-02-18] MEDS: INSULIN ASPART 100 UNITS/ML 3 ML PEN SC SCH ×4 (09:20→20:34)
[2020-02-18] MEDS: INSULIN GLARGINE SOLOSTAR 100 UNITS/ML 3 ML PEN SC SCH ×2 (09:21→20:31)
--- NOTE | 2020-02-18 10:09 | Pharmacy Report ---
Pharmacy Glycemic Short Note 2 - Date of Service February 18, 2020 - Glycemic Short BSG Results (Last 24 hours): 02/18/20 02/18/20 02:40 09:08 Glucose 170 H POC Glucose 114 H OUTPATIENT ANTIDIABETIC REGIMEN: * n/a * HbA1c: 6.1% (12/13/19) * Prednisone 90mg PO daily ASSESSMENT: * Mr Lassiter is a 74yo diet-controlled diabetic male. He is admitted after suffering a fall w/ presumed aspiration pna. * Patient was initiated on IV SoluMedrol 60mg IV q6h, which is expected to contribute significantly to steroid-induced hyperglycemia. * Conservatively-dosed SQ basal/bolus insulin started this morning. * Pt is receiving Vanc/Doxy/Cefepime and IVF (NS @ 125mL/hr). * Pt is currently NPO. PLAN FOR INPATIENT GLYCEMIC CONTROL: * Basal insulin * Lantus 10 units SQ BID * Bolus insulin * NovoLog per scale ACHS or Q6hrs while NPO * Goal Range: Low 110 mg/dL - High 150 mg/dL * Correction Factor: 30 mg/dL/unit * Nutritional / Prandial insulin per carb ratio of 1 unit per 10 grams CHO consumed PLAN FOR DISCHARGE: * Recent A1c (6.1%) indicates that pt likely will not require any changes on discharge.
[2020-02-18] MEDS: PANTOprazole 40 MG TAB PO SCH ×2 (11:36→20:28)
[2020-02-18] MEDS: ATORVASTATIN 40 MG TAB PO SCH (11:36)
[2020-02-18] MEDS: CITALOPRAM 20 MG TAB PO SCH (11:36)
[2020-02-18] MEDS: CEFEPIME 2,000 MG in SYRINGE 7.5 ML IV SCH ×2 (12:55→20:28)
[2020-02-18] MEDS: VANCOMYCIN HCL 1,250 MG in SODIUM CHLORIDE 0.9% 250 ML IV SCH ×2 (12:55→20:34)
--- NOTE | 2020-02-18 15:32 | Pharmacy Report ---
Pharmacy Abx Dose Short Note - Date of Service February 18, 2020 - Assessment & Plan Assessment * Mr Lassiter is a 74 year old M receiving Vanc/Cefepime for treatment of suspected aspiration pneumonia. * Patient has had multiple recent admissions and most recently an acute rehab stay. * Other significant PMH includes: DM, COPD, hx CVA, HEYDI w/ CPAP, BPH, CHF. Pt takes Bactrim chronically (for aspiration pna coverage?). Pt has a PEG tube, but still eats food by mouth. * Patient was initiated on broad-spectrum abx on admission Plan Vancomycin * Patient meets criteria for vancomycin AUC dosing nomogram * AUC/RANDA is the preferred PK/PD target for vancomycin * Target AUC/RANDA = 400-600 * AUC guided dosing is effective and associated with decreased risk of nephrotoxicity * Vancomycin 2gm IV loading dose, then: * Vanc 1250mg IV q8h * Will evaluate a trough level prior to the 4th maintenance dose, to evaluate safety of dosing regimen. Cefepime 2gm IV q8h Doxycycline 100mg IV q24h -- consider increasing to q12h for pulmonary infxn Pharmacy will continue to follow and will adjust dose/frequency as necessary. Thank you.
--- NOTE | 2020-02-18 17:00 | Palliative Care Consultation ---
Date of Consultation February 18, 2020 Assessment & Plan (1) Goals of care, counseling/discussion: -74 year old male patient with complicated PMH Lupus Anticoagulant, acute blood loss anemia related to recent upper GI bleeds, gastric motility disorder, diabetes mellitus, CAD, COPD, HEYDI, BPH, CVA, dysphagia with PEG tube placement, aspiration pneumonia, atrial fibrillation unable to be on AC due to bleeding risk, and others, presented to the hospital after several mechanical falls at home. He is admitted with possible aspiration pneumonia, is being treated with abx. Patient has had a very complicated medical course since about 6 months ago. It started with pneumonia and sepsis. 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 Patient had a PEG tube placed. He then developed a hematoma for which he was treated at [facility]. He went to [facility] for rehab, but had to return to [facility] again. Patient was then having issues with not tolerating tube feedings and gastric dysmotility issues. He developed GI bleed and was again transferred to [facility] for IR procedure. He had an EGD and had clips placed. Patient has bled with multiple anticoagulation attempts, so he is now not on a blood thinner. After patient's last stay at [facility] [place] [place], he was transferred back to [facility] for rehab. He progressed failry well and was sent home to live with his significant other, Tammy. At [facility] [place] [place], they were also able to transition patient back to a modified oral diet of pureed foods and thickened liquids. Family reports that at home after he was in [facility], he was eating regular solid foods, but still thickening liquids. Patient was able to walk with a walker and some assistance, but he had become weaker in the last couple weeks and has had multiple falls at home. Given his extensive history, palliative care is now consulted to discuss goals of care. -Met with patient in room 262-2. He is [place] and is delayed in answering questions due to his stroke, making the interview challenging. Patient has some memory issues and limited insight, but for the most part he was able to answer questions appropriately. -Patient states his son, George Lassiter, is his POA. His significant other, Tammy, is also allowed to be involved in decision making. -Patient and I discussed his complicated medical course in these last months as well as repeated hospitalizations. When I asked patient what his goals of care are, he stated, "To just go home and ." Patient was not upset or scared about this, he stated he is just tired of being in the hospital. Patient gave me permission to speak with his son. -Called George and spoke at length. George states that he knows his dad is tired of coming back and forth to the hospital. 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 George states that patient was doing pretty well at home with home health until he started getting sick again. -We discussed that it is entirely likely that patient continues to aspiration. George agrees, and also agrees that patient prefers to eat by mouth despite the risk of aspiration. Patient told me this as well. So a diet will be ordered for patient today. -Goal is to get patient home with his s/o Luca and with home health. If he continues to decline at home, we discussed the option of transitioning to hospice care rather than patient continuing to come to the hospital. George agrees and will discuss this with patient and Tammy. -No symptom management needs at this time. PPS 40%. (2) Generalized weakness: (3) Fall: Encounter type: initial encounter Qualified Code(s): W19.XXXA - Unspecified fall, initial encounter (4) Pneumonia: Laterality: left Lung location: lower lobe of lung Pneumonia type: due to unspecified organism Qualified Code(s): J18.9 - Pneumonia, unspecified organism History of Present Illness Attending Physician: Jeff Cohen DO History of Present Illness This 74 year old male patient with complicated PMH Lupus Anticoagulant, acute blood loss anemia related to recent upper GI bleeds, gastric motility disorder, diabetes mellitus, CAD, COPD, HEYDI, BPH, CVA, dysphagia with PEG tube placement, aspiration pneumonia, atrial fibrillation unable to be on AC due to bleeding risk, and others, presented to the hospital after several mechanical falls at home. He is admitted with possible aspiration pneumonia, is being treated with abx. Patient has had a very complicated medical course since about 6 months ago. It started with pneumonia and sepsis. 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 Patient had a PEG tube placed. He then developed a hematoma for which he was treated at [facility]. He went to [facility] for rehab, but had to return to [facility] again. Patient was then having issues with not tolerating tube feedings and gastric dysmotility issues. He developed GI bleed and was again transferred to [facility] for IR procedure. He had an EGD and had clips placed. Patient has bled with multiple anticoagulation attempts, so he is now not on a blood thinner. After patient's last stay at [facility] [place] [place], he was transferred back to [facility] for rehab. He progressed failry well and was sent home to live with his significant other, Tammy. At [facility] [place] [place], they were also able to transition patient back to a modified oral diet of pureed foods and thickened liquids. Family reports that at home after he was in [facility], he was eating regular solid foods, but still thickening liquids. Patient was able to walk with a walker and some assistance, but he had become weaker in the last couple weeks and has had multiple falls at home. Given his extensive history, palliative care is now consulted to discuss goals of care. Thank you kindly for this consult. Palliative care team will follow as needed. Allergies Allergy/AdvReac Type Severity Reaction Status Date / Time fluticasone Allergy Mild Hives Verified 02/18/20 02:26 salmeterol Allergy Mild Hives Verified 02/18/20 02:26 Home Medications Home Medications Medication Instructions Recorded Confirmed Type acetaminophen 160 mg/5 mL oral See Rx Instructions PO QID 02/09/20 02/18/20 History suspension lidocaine 4 % topical patch 1 patch TOP DAILY 02/09/20 02/18/20 History prednisone 10 mg tablet See Rx Instructions PO DAILY 02/09/20 02/18/20 History tramadol 50 mg tablet 50 mg PO Q6H PRN 02/09/20 02/18/20 History atorvastatin 40 mg tablet 40 mg PO DAILY #90 tab 02/11/20 02/18/20 Rx citalopram 10 mg tablet 10 mg PO DAILY #90 tab 02/11/20 02/18/20 Rx omeprazole 40 mg capsule,delayed 40 mg PO BID #180 cap 02/11/20 02/18/20 Rx release acetaminophen [Tylenol Arthritis 650 mg PO Q8H PRN 02/18/20 02/18/20 History Pain] [id number] HMB 1 ea PO BID 02/18/20 02/18/20 History [Will] cranberry 2,500 mg PO DAILY 02/18/20 02/18/20 History fluticasone furoate-vilanterol 1 inh INHALATION DAILY 02/18/20 02/18/20 History ipratropium-albuterol 3 ml INHALATION Q4H PRN 02/18/20 02/18/20 History sulfamethoxazole-trimethoprim 1 tab PO 3XWK 02/18/20 02/18/20 History [Bactrim DS] tamsulosin 0.4 mg PO QPM 02/18/20 02/18/20 History Patient History Medical History Arthritis Bronchitis CAD (coronary artery disease) (Chronic) COPD (chronic obstructive pulmonary disease) (Chronic) COPD (chronic obstructive pulmonary disease) Diabetes mellitus (Chronic) Elevated PSA History of CHF (congestive heart failure) History of respiratory failure Knee pain Sleep apnea (Chronic) 09/14/2014- Urinary incontinence Surgical History H/O knee surgery History of bronchoscopy History of cardiac catheterization 05/01/2010-PCI of OM 2 with CAROLINE History of sinus surgery PEG (percutaneous endoscopic gastrostomy) status Family History Mother Heart disease Hypertension Father Emphysema, unspecified Denies family history of Ovarian cancer Prostate cancer Breast cancer Lung cancer Colorectal cancer Social History Preferred Language: Macedonian Communication Ability: Unable Visual Impairment: No Limitations Hearing Ability: Use of Hearing Aid Patient Transporter 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 Son george lives within a few minutes current occupational status: retired Other Information That Helps Us Care for You: No Feels Safe at Home: Yes Safety Concerns: Feels Safe At This Time Smoking Status: Former smoker Tobacco Type: cigarettes and smokeless tobacco ; Age Started Using Tobacco: 15 ; Age Quit Using Tobacco: 30 ; packs per day: 2 ; Number of Years Since Quit: 44 ; Second Hand Exposure: Yes ; Hx Alcohol Use: No Hx Substance Use: No Diet Comment: regular caffeine: Yes during the past year weight has: decreased > 10 lbs Dental Care, Regularly: Yes Physical Activity Frequency: Does not Exercise Seatbelt Use: always Sunscreen Use: No Review of Systems Ear, Nose, Mouth, Throat: + dysphagia (occasional trouble swallowing) Respiratory: no dyspnea Gastrointestinal: no nausea and no vomiting Physical Exam Constitutional: + overweight; no acute distress ENMT: external ear and nose normal, oropharynx normal Ears: + hearing impairment (very [place]) Respiratory: normal respiratory effort; no labored breathing Cardiovascular: Rate/Rhythm: regular rate and regular rhythm Gastrointestinal (Abdomen): Inspection/Auscultation: abdomen normal to inspection Neurologic: awake Psychiatric: Orientation: alert, oriented to person and oriented to place; + not oriented to time Insight: + limited insight Judgement: + limited judgement Results & Data Vital Signs (Past 12 Hours) Vital Signs Temp Pulse Pulse Resp BP BP Pulse Ox 02/18/20 15:03 36.6 C 72 18 110/57 L 96 02/18/20 11:09 36.8 C 68 20 121/71 98 02/18/20 06:44 36.4 C L 63 20 112/65 96 02/18/20 05:30 62 14 117/72 98 Coding Level of Care Code 05616 Inpt Consult Level 3 Diagnoses Goals of care, counseling/discussion Z71.89 Generalized weakness R53.1 Fall W19.XXXA Encounter type: initial encounter Pneumonia J18.9 Laterality: left Lung location: lower lobe of lung Pneumonia type: due to unspecified organism Time Spent (min) 70 Time Spent Midlevel 70 minutes with >50% of the time spent at bedside with patient and on phone with family discussing condition and GOC.
--- NOTE | 2020-02-18 17:28 | Electrocardiogram Report ---
Test Reason : Blood Pressure : / mmHG Vent. Rate : 086 BPM Atrial Rate : 086 BPM P-R Int : 166 ms QRS Dur : 156 ms QT Int : 410 ms P-R-T Axes : 037 086 022 degrees QTc Int : 490 ms Normal sinus rhythm Right bundle branch block Abnormal ECG When compared with ECG of 26-DEC-2019 16:41, Premature supraventricular complexes are no longer Present Confirmed by Ryder Steen ([id number]) on 02/18/2020 5:28:32 PM Referred By: REFERRED SELF Confirmed By:Ryder Steen
--- NOTE | 2020-02-18 19:19 | Communication Note ---
Date of Service: February 18, 2020 feeling better no f/c/s no abdominal pain no cough no sob no chest pain d/w palliative and input greatly appreciated. asher called for update - in discussions with palliative she had extensive discussions w pt's son and wanted to continue discussions with asher - as palliative and myself are on the same page, to avoid mixed messages i will hold on calling for now. pt was apparently eating as outpt and was going to have PEG removed. vitals noted nad heent nc at mmm breathing unlabored no pallor or icterus. PEG site c/d/i. septic picture - ?aspiration - appearing to be improving. continue current care w abx and follow clinically, follow cultures. hopefully can start to streamline abx by tomorrow dysphagia/concern on aspiration - d/w speech - concerns on GI motility too - but after d/w palliative pt mostly wants to be home despite risks and therefore will resume diet otherwise as per admission note.
--- NOTE | 2020-02-18 23:59 | Billing Data ---
Date of Service February 18, 2020 Coding Level of Care Code 36913 OBS Care - Level 3
[2020-02-19] MEDS: methylPREDNISolone 60 MG in SYRINGE 0 ML IV SCH ×3 (02:20→13:08)
[2020-02-19] MEDS: VANCOMYCIN HCL 1,250 MG in SODIUM CHLORIDE 0.9% 250 ML IV SCH ×2 (03:55→13:08)
[2020-02-19] MEDS: CEFEPIME 2,000 MG in SYRINGE 7.5 ML IV SCH ×2 (03:55→12:15)
[2020-02-19 06:26] LABS: Hematocrit (blood only) 36.3 % (42-52); Hemoglobin 11.8 g/dL (14.0-18.0); Mean Corpuscular Hemoglobin 28.2 pg (25-34); Mean Corpuscular Hgb Conc 32.5 g/dL (32-36); Mean Corpuscular Volume 86.8 fL (80-100); Mean Platelet Volume 10.3 fL (7.4-10.4); Platelet Count 202 K/uL (130-400); RDW Coefficient of Variation 15.5 % (11.5-14.5); RDW Standard Deviation 49.6 fL (36.4-46.3); Red Blood Count 4.18 M/uL (4.7-6.1); White Blood Count 22.14 K/uL (4.8-10.8)
[2020-02-19 07:00] LABS: BUN Creatinine Ratio 26.8 (10-20); Calcium 8.3 mg/dl (8.5-10.1); Creatinine Clr Calc Pharmacy 98.5 ml/min; Est GFR (African American) 103.6; Est GFR (Non-African American) 89.4; Potassium 4.2 mmol/L (3.5-5.1)
[2020-02-19 07:10] LABS: Acanthocytes 1+; Basophils # (auto) 0.02 K/uL (0-0.2); Basophils % (auto) 0.1 %; Immature Granulocytes % (auto) 0.9 %; Lymphocytes # (auto) 0.74 K/uL (1.2-3.4); Lymphocytes % (auto) 3.3 %; Monocytes # (auto) 0.56 K/uL (0.11-0.59); Monocytes % (auto) 2.5 %; Neutrophils # (auto) 20.62 K/uL (1.4-6.5); Neutrophils % (auto) 93.2 %
[2020-02-19] MEDS: INSULIN ASPART 100 UNITS/ML 3 ML PEN SC SCH ×4 (08:41→20:25)
[2020-02-19] MEDS: CITALOPRAM 20 MG TAB PO SCH (08:43)
[2020-02-19] MEDS: ATORVASTATIN 40 MG TAB PO SCH (08:43)
[2020-02-19] MEDS: PANTOprazole 40 MG TAB PO SCH ×2 (08:43→20:26)
[2020-02-19] MEDS: INSULIN GLARGINE SOLOSTAR 100 UNITS/ML 3 ML PEN SC SCH ×2 (08:44→20:24)
[2020-02-19] MEDS: FLUTICASONE/VILANTEROL 100/25MCG 14 PUFFS/INHALER INH SCH (08:45)
[2020-02-19] MEDS: LIDOCAINE 5% 1 PATCH TD SCH (08:48)
[2020-02-19] MEDS ORDERED: DOXYCYCLINE HYCLATE 100 MG in DEXTROSE 5% 100 ML IV SCH (09:00)
[2020-02-19] MEDS ORDERED: VANCOMYCIN TROUGH ONE (11:30)
--- NOTE | 2020-02-19 15:19 | Pharmacy Report ---
Pharmacy Glycemic Short Note 2 - Date of Service February 19, 2020 - Glycemic Short BSG Results (Last 24 hours): 02/18/20 02/18/20 02/19/20 17:57 20:19 06:08 Glucose 168 H POC Glucose 171 H 153 H 02/19/20 02/19/20 07:44 11:37 Glucose POC Glucose 145 H 177 H OUTPATIENT ANTIDIABETIC REGIMEN: * n/a * HbA1c: 6.1% (12/13/19) * Prednisone 90mg PO daily ASSESSMENT: 02/19/20: * Mr Lassiter rec'd 27 units of insulin yesterday, with BSGs ranging from 114- 171mg/dL. * Fasting BSG was above goal this morning, so Lantus was increased slightly. * Expect that patient's insulin needs will decrease when steroid dose is decreased. Will need to adjust regimen accordingly. 02/18/20 * Mr Lassiter is a 74yo diet-controlled diabetic male. He is admitted after suffering a fall w/ presumed aspiration pna. * Patient was initiated on IV SoluMedrol 60mg IV q6h, which is expected to contribute significantly to steroid-induced hyperglycemia. * Conservatively-dosed SQ basal/bolus insulin started this morning. * Pt is receiving Vanc/Doxy/Cefepime and IVF (NS @ 125mL/hr). * Pt is currently NPO. PLAN FOR INPATIENT GLYCEMIC CONTROL: * Basal insulin * Lantus 12 units SQ BID * Bolus insulin * NovoLog per scale ACHS or Q6hrs while NPO * Goal Range: Low 110 mg/dL - High 150 mg/dL * Correction Factor: 30 mg/dL/unit * Nutritional / Prandial insulin per carb ratio of 1 unit per 10 grams CHO consumed PLAN FOR DISCHARGE: * Recent A1c (6.1%) indicates that pt likely will not require any changes on discharge.
--- NOTE | 2020-02-19 18:19 | Hospitalist Progress Note ---
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 f/u GI as outpt - can't be done right now due to procedures under emergency only status (4) Generalized weakness: failure to thrive would like to go home (5) A-fib: rate controlled cant be safely anticoagulated due to multiple bleeding issues (6) Acute blood loss anemia: now stable off anticoagulation (7) Lupus anticoagulant positive: multiple episodes of bleeding on anticoagulation have precluded their use Admission and Anticipated Discharge Date Admission Date: February 18, 2020 Subjective feeling better breathing OK does have a little bit of a cough feels like it's mostly when he eats not a lot in between no significant sob no f/c/s would like PEG out if possible - d/w GI - requires endoscopic procedure to remove, would likely unalbe to be able to do so at this time since procedures restricted to emergency only Review of Systems Review of Systems: All systems reviewed & are unremarkable except as noted in HPI & below Physical Exam Physical Exam: gen aao pleasant nad heent nc at mmm lungs ongoing purse lipped breathing as before, faintly coarse base R no r/r/w good effort. no focal neuro deficits. Results & Data Results & Data ([facility]) Vital Signs (Past 12 Hours) Vital Signs Temp Pulse Pulse Resp BP Pulse Ox 02/19/20 15:57 64 02/19/20 15:36 97.5 F L 72 20 133/81 98 02/19/20 11:19 97.3 F L 64 18 135/75 99 02/19/20 07:37 97.7 F 60 18 147/75 H 100 02/19/20 07:24 58 L PG Care Time/CCT Total # of Minutes Spent Total Time Spent with Patient: Total time spent is greater than 50% in coordinat ion of care (as documented) at patient's floor/unit and/or counseling patient: Coding Level of Care Code 76437 Subseq Hosp Care Lvl 3 Diagnoses Leukocytosis D72.829 Leukocytosis type: unspecified Pneumonia J18.9 Laterality: left Lung location: lower lobe of lung Pneumonia type: due to unspecified organism PEG (percutaneous endoscopic gastrostomy) status Z93.1 Generalized weakness R53.1 A-fib I48.0 Atrial fibrillation type: paroxysmal Acute blood loss anemia D62 Lupus anticoagulant positive R76.0 (1) Leukocytosis Leukocytosis type: unspecified Qualified Code(s): D72.829 - Elevated white blood cell count, unspecified (2) Pneumonia Laterality: left Lung location: lower lobe of lung Pneumonia type: due to unspecified organism Qualified Code(s): J18.9 - Pneumonia, unspecified organism (3) A-fib Atrial fibrillation type: paroxysmal Qualified Code(s): I48.0 - Paroxysmal atrial fibrillation
[2020-02-20 07:32] LABS: Hematocrit (blood only) 34.8 % (42-52); Hemoglobin 11.3 g/dL (14.0-18.0); Immature Granulocytes # (auto) 0.14 K/uL (0.00-0.02); Immature Granulocytes % (auto) 0.6 %; Lymphocytes # (auto) 0.94 K/uL (1.2-3.4); Lymphocytes % (auto) 4.2 %; Mean Corpuscular Hgb Conc 32.5 g/dL (32-36); Mean Corpuscular Volume 86.4 fL (80-100); Mean Platelet Volume 9.5 fL (7.4-10.4); Monocytes % (auto) 7.2 %; Neutrophils # (auto) 19.68 K/uL (1.4-6.5); Platelet Count 180 K/uL (130-400); RDW Coefficient of Variation 15.4 % (11.5-14.5); RDW Standard Deviation 49.1 fL (36.4-46.3); Red Blood Count 4.03 M/uL (4.7-6.1); White Blood Count 22.36 K/uL (4.8-10.8)
[2020-02-20] MEDS: INSULIN ASPART 100 UNITS/ML 3 ML PEN SC SCH ×4 (08:22→20:05)
[2020-02-20] MEDS: CITALOPRAM 20 MG TAB PO SCH (08:23)
[2020-02-20] MEDS: PANTOprazole 40 MG TAB PO SCH ×2 (08:23→20:02)
[2020-02-20] MEDS: ATORVASTATIN 40 MG TAB PO SCH (08:23)
[2020-02-20] MEDS: LIDOCAINE 5% 1 PATCH TD SCH (08:24)
[2020-02-20] MEDS: AMOXICILLIN/CLAVULANATE 875 MG TAB PO SCH ×2 (08:24→16:59)
[2020-02-20] MEDS: FLUTICASONE/VILANTEROL 100/25MCG 14 PUFFS/INHALER INH SCH (08:25)
[2020-02-20] MEDS ORDERED: INSULIN GLARGINE SOLOSTAR 100 UNITS/ML 3 ML PEN SC SCH (09:00)
[2020-02-20] MEDS ORDERED: predniSONE 20 MG TAB PO SCH (09:00)
--- NOTE | 2020-02-20 09:14 | Pharmacy Report ---
Pharmacy Glycemic Short Note 2 - Date of Service February 20, 2020 - Glycemic Short BSG Results (Last 24 hours): 02/19/20 02/19/20 02/19/20 11:37 16:45 20:11 POC Glucose 177 H 134 H 233 H 02/20/20 07:34 POC Glucose 129 H OUTPATIENT ANTIDIABETIC REGIMEN: * n/a * HbA1c: 6.1% (12/13/19) * Prednisone 90mg PO daily ASSESSMENT: 02/20/20: * Mr Lassiter received 41 units of insulin yesterday * 24 units basal * 17 units of bolus * Steroids tapered from Solumedrol 60mg IV Q6hrs to Prednisone 40mg PO daily. This should yield an improvement in hyperglycemia * Will decrease insulin regimen with step down in steroid dosing. * based on A1c --> PM dose of Lantus most likely not needed without RTC s teroids. Will dc PM dose of Lantus * Will loosen CF/CR based on post-prandial BSGs 02/19/20: * Mr Lassiter rec'd 27 units of insulin yesterday, with BSGs ranging from 114- 171mg/dL. * Fasting BSG was above goal this morning, so Lantus was increased slightly. * Expect that patient's insulin needs will decrease when steroid dose is decreased. Will need to adjust regimen accordingly. 02/18/20 * Mr Lassiter is a 74yo diet-controlled diabetic male. He is admitted after suffering a fall w/ presumed aspiration pna. * Patient was initiated on IV SoluMedrol 60mg IV q6h, which is expected to con tribute significantly to steroid-induced hyperglycemia. * Conservatively-dosed SQ basal/bolus insulin started this morning. * Pt is receiving Vanc/Doxy/Cefepime and IVF (NS @ 125mL/hr). * Pt is currently NPO. PLAN FOR INPATIENT GLYCEMIC CONTROL: * Basal insulin: decrease * Lantus 12 units SQ daily in AM * Bolus insulin * NovoLog per scale ACHS or Q6hrs while NPO * Goal Range: Low 110 mg/dL - High 150 mg/dL * Correction Factor: 30 mg/dL/unit * Nutritional / Prandial insulin per carb ratio of 1 unit per 10 grams CHO consumed PLAN FOR DISCHARGE: * Recent A1c (6.1%) indicates that pt likely will not require any changes on discharge.
--- NOTE | 2020-02-20 14:31 | Hospitalist Progress Note ---
Date of Service February 20, 2020 Assessment & Plan (1) Leukocytosis: treating as aspiration pneumonia - CT marginally positive, known significant aspiration risk, faintly fitting breath sounds (coarse base R previously now clear) -- moreover no other overt s/s infection (nothing urinary, no cellulitis, no diarrhea/Cdiff, blood cultures negative thus far, no fevers to suggest viral infection) -clinically doing quite well -continue on augmentin and follow -suspect leukocytosis is mixed picture between infection and steroids now that i have been made aware he was on 90mg --> continue to follow (even as outpt as i suspect it won't resolve with treating infection alone) (2) Pneumonia: aspiration - reduced antibiotics to augmentin clinically doing well speech eval and treat (3) PEG (percutaneous endoscopic gastrostomy) status: would like removed. f/u GI as outpt - can't be done right now due to procedures under emergency only status --> further is to have repeat push enteroscopy to re-eval small bowel lesion and significant other notes she would prefer push enteroscopy and PEG removal be done at the same time. she would prefer this be done by [facility] but i am not certain we have the capability to do this -- will ask COURTNEY García to coordinate ([facility] not injection molding process technician this weekend for me to discuss personally) and if unable to do through [facility] then would ask it be done w [facility] since some of his care has been through the [facility] system. (4) Generalized weakness: failure to thrive PT/OT eval and treat, but significant other still endorses goal of home (5) A-fib: rate controlled not able to be safely anticoagulated due to multiple bleeding issues (6) Acute blood loss anemia: has been stable off anticoagulation (7) Lupus anticoagulant positive: multiple episodes of bleeding on anticoagulation have precluded their use; after discussions with significant other has been on 90mg prednisone for several weeks - d/w heme locally (who s/o wants pt to follow with) and they agreed weaning reasonable - change to 70mg prednisone and follow (8) DVT prophylaxis: SCDs (pharmacologic contraindicated due to his bleeding issues) (9) Discharge planning issues: PT/OT eval and treat speech eval and treat // video fluoro saturday son and significant other seem to have different thoughts on goals of care, ideally pt/son/significant other will all be able to discuss together (inability to have visitors combined with patient's rather significant hearing loss makes this difficult currently) right now planning appears to be home once above sorted out. Admission and Anticipated Discharge Date Admission Date: February 18, 2020 Subjective as best i can assess seems to be doing well today - no pain. no sob. offers little in the way of HPI or ROS but seems to be doing ok. called asher to update - she has extensive list of questions and concerns. wonders why he's on PO abx w WBC still so high (explained that he was on broad coverage but shows little in the way of s/s infection and most likely was aspiration which augmentin covers well - and will continue to follow on augmentin since we can always re-escalate if need be), why WBC so high (she then explained that he's been on 90mg prednisone since discharge from [facility] - i noted that such a high dose + infection would easily be a good explanation for WBC - ai since he appeared to have leukocytosis out of proportion to severity of infection - but that we would defintiely want to follow WBC back to normal), asked if Dr Whitt could see him in regards to tapering steroids (d/w dr whitt immediately after - he wasn't sure he would have had on such a high dose but since all appears stable certainly seemed reasonable to taper - rec'd 70mg for now and will follow in office) and asked about GI w PEG removal as well as repeat push enteroscopy for re-eval of lesion --> noted that she wanted all his care through [facility] but i did note [facility]'m not certain [facility] so that might need to be referred out - she expressed understanding of this -- will ask for this to be coordinated through COURTNEY García. asks for ongoing speech eval and treat (d/w speech therapist - for video fluoro again saturday which could aid in both plans/goals --> if goal is quality but he can safely eat less restrictive that would be of benefit; if goal is still reasonably aggressive then would have benefit of possibly being able advance diet and continue nutritional progress). also discussed his weakness and tried to allude to conversations from palliative and son yemi - appears that yemi and asher are not entirely on the same page as asher still viewing mr beverly's situation as wanting to do as much as they can for progress - does feel safe taking him home despite PT recs for SNF noting that her now had multiple neurologic comoribidities and she cared for him - and mr beverly is easier to care for than her former . Review of Systems Review of Systems: All systems reviewed & are unremarkable except as noted in HPI & below as best can be ascertained Physical Exam Physical Exam: gen awake, pleasant nad. heent nc at mmm. lungs cta bl no r/r/w moderate effort no accessory muscles. skin no rashes no pallor or icterus. neuro no focal deficits other than VERY LUMMI. Results & Data Results & Data ([facility]) Vital Signs (Past 12 Hours) Vital Signs Temp Pulse Pulse Resp BP Pulse Ox 02/20/20 11:21 97.9 F 56 L 16 128/73 99 02/20/20 07:27 98.2 F 53 L 18 133/72 95 02/20/20 07:24 61 02/20/20 04:55 97.9 F 68 18 124/69 96 PG Care Time/CCT Total # of Minutes Spent Total Time Spent with Patient: Total time spent is greater than 50% in coordination of care (as documented) at patient's floor/unit and/or counseling patient: Coding Level of Care Code 18578 Subseq Hosp Care Lvl 3 Diagnoses Leukocytosis D72.829 Leukocytosis type: unspecified Pneumonia J18.9 Laterality: left Lung location: lower lobe of lung Pneumonia type: due to unspecified organism PEG (percutaneous endoscopic gastrostomy) status Z93.1 Generalized weakness R53.1 A-fib I48.0 Atrial fibrillation type: paroxysmal Acute blood loss anemia D62 Lupus anticoagulant positive R76.0 DVT prophylaxis Z29.9 Discharge planning issues Z02.9 (1) Leukocytosis Leukocytosis type: unspecified Qualified Code(s): D72.829 - Elevated white blood cell count, unspecified (2) Pneumonia Laterality: left Lung location: lower lobe of lung Pneumonia type: due to unspecified organism Qualified Code(s): J18.9 - Pneumonia, unspecified organism (3) A-fib Atrial fibrillation type: paroxysmal Qualified Code(s): I48.0 - Paroxysmal atrial fibrillation
[2020-02-20] MEDS: TAMSULOSIN HCL 0.4 MG CAP PO SCH (20:01)
[2020-02-21 06:33] LABS: Eosinophils # (auto) 0.03 K/uL (0-0.5); Eosinophils % (auto) 0.2 %; Hematocrit (blood only) 35.6 % (42-52); Hemoglobin 11.6 g/dL (14.0-18.0); Immature Granulocytes # (auto) 0.07 K/uL (0.00-0.02); Immature Granulocytes % (auto) 0.5 %; Lymphocytes # (auto) 1.44 K/uL (1.2-3.4); Lymphocytes % (auto) 10.9 %; Mean Corpuscular Hemoglobin 27.8 pg (25-34); Mean Corpuscular Hgb Conc 32.6 g/dL (32-36); Mean Corpuscular Volume 85.4 fL (80-100); Mean Platelet Volume 9.5 fL (7.4-10.4); Monocytes # (auto) 1.32 K/uL (0.11-0.59); Neutrophils # (auto) 10.34 K/uL (1.4-6.5); Neutrophils % (auto) 78.4 %; Platelet Count 161 K/uL (130-400); RDW Coefficient of Variation 15.4 % (11.5-14.5); RDW Standard Deviation 48.5 fL (36.4-46.3); Red Blood Count 4.17 M/uL (4.7-6.1)
[2020-02-21 07:11] LABS: BUN Creatinine Ratio 35.4 (10-20); Est GFR (African American) 105.9; Est GFR (Non-African American) 91.4; Potassium 3.6 mmol/L (3.5-5.1)
[2020-02-21] MEDS: ATORVASTATIN 40 MG TAB PO SCH (08:45)
[2020-02-21] MEDS: predniSONE 20 MG TAB PO SCH (08:45)
[2020-02-21] MEDS: PANTOprazole 40 MG TAB PO SCH ×2 (08:45→21:02)
[2020-02-21] MEDS: CITALOPRAM 20 MG TAB PO SCH (08:46)
[2020-02-21] MEDS: FLUTICASONE/VILANTEROL 100/25MCG 14 PUFFS/INHALER INH SCH (08:46)
[2020-02-21] MEDS: AMOXICILLIN/CLAVULANATE 875 MG TAB PO SCH ×2 (08:47→17:26)
[2020-02-21] MEDS: INSULIN GLARGINE SOLOSTAR 100 UNITS/ML 3 ML PEN SC SCH (08:48)
[2020-02-21] MEDS: INSULIN ASPART 100 UNITS/ML 3 ML PEN SC SCH ×4 (08:50→21:02)
[2020-02-21] MEDS: LIDOCAINE 5% 1 PATCH TD SCH (08:51)
[2020-02-21] MEDS ORDERED: predniSONE 20 MG TAB PO SCH (09:00)
--- NOTE | 2020-02-21 09:18 | Pharmacy Report ---
Pharmacy Glycemic Short Note 2 - Date of Service February 21, 2020 - Glycemic Short BSG Results (Last 24 hours): 02/20/20 02/20/20 02/20/20 11:33 16:28 20:06 Glucose POC Glucose 138 H 163 H 195 H 02/21/20 02/21/20 06:13 07:42 Glucose 77 POC Glucose 85 OUTPATIENT ANTIDIABETIC REGIMEN: * n/a * HbA1c: 6.1% (12/13/19) * Prednisone 90mg PO daily ASSESSMENT: 02/21/20: * Mr Lassiter received 24 units of insulin yesterday * 12 units basal * 12 units of bolus * Steroids tapered from Solumedrol 60mg IV Q6hrs to Prednisone 40mg PO daily but now back up towards outpatient dosing of 70mg/day. Expect BSGs to rise with increase in steroid dosing - however, this is his outpatient steroid dosing and his A1c is close to normal at 6.1%. Likely, he will not full recommended dose of 0.4 units/kg insulin for doses of prednisone >40mg/day. * AM fasting BSG is below goal range this AM at 85 mg/dl. Aggressive basal insulin dosing not needed based on A1c. * Will empirically tighten CF/CR for increased steroid dose since steroids have their most profound effect on post-prandial hyperglycemia. 02/20/20: * Mr Lassiter received 41 units of insulin yesterday * 24 units basal * 17 units of bolus * Steroids tapered from Solumedrol 60mg IV Q6hrs to Prednisone 40mg PO daily. This should yield an improvement in hyperglycemia * Will decrease insulin regimen with step down in steroid dosing. * based on A1c --> PM dose of Lantus most likely not needed without RTC steroids. Will dc PM dose of Lantus * Will loosen CF/CR based on post-prandial BSGs 02/19/20: * Mr Lassiter rec'd 27 units of insulin yesterday, with BSGs ranging from 114- 171mg/dL. * Fasting BSG was above goal this morning, so Lantus was increased slightly. * Expect that patient's insulin needs will decrease when steroid dose is decr eased. Will need to adjust regimen accordingly. 02/18/20 * Mr Lassiter is a 74yo diet-controlled diabetic male. He is admitted after suffering a fall w/ presumed aspiration pna. * Patient was initiated on IV SoluMedrol 60mg IV q6h, which is expected to contribute significantly to steroid-induced hyperglycemia. * Conservatively-dosed SQ basal/bolus insulin started this morning. * Pt is receiving Vanc/Doxy/Cefepime and IVF (NS @ 125mL/hr). * Pt is currently NPO. PLAN FOR INPATIENT GLYCEMIC CONTROL: * Basal insulin: decrease * Lantus 10 units SQ daily in AM * Bolus insulin: tighten * NovoLog per scale ACHS or Q6hrs while NPO * Goal Range: Low 110 mg/dL - High 140 mg/dL * Correction Factor: 25 mg/dL/unit * Nutritional / Prandial insulin per carb ratio of 1 unit per 8 grams CHO consumed PLAN FOR DISCHARGE: * Recent A1c (6.1%) indicates that pt likely will not require any changes on discharge.
[2020-02-21] MEDS ORDERED: POLYETHYLENE (MIRALAX) 17 GM PACK PO PRN (15:37)
--- NOTE | 2020-02-21 15:37 | Hospitalist Progress Note ---
Date of Service February 21, 2020 Assessment & Plan (1) Leukocytosis: treating as aspiration pneumonia - CT marginally positive, known significant aspiration risk, faintly fitting breath sounds (coarse base R previously now clear) -- moreover no other overt s/s infection (nothing urinary, no cellulitis, no diarrhea/Cdiff, blood cultures negative thus far, no fevers to suggest viral infection) -clinically doing quite well -continue on augmentin and follow -suspect leukocytosis is mixed picture between infection and steroids - now improving. (2) Pneumonia: aspiration - reduced antibiotics to augmentin clinically doing well speech eval and treat per asher's request - discussed w speech on 02/19 (3) PEG (percutaneous endoscopic gastrostomy) status: would like removed. f/u GI as outpt - can't be done right now due to procedures under emergency only status --> further is to have repeat push enteroscopy to re-eval small bowel lesion and significant other notes she would prefer push enteroscopy and PEG removal be done at the same time. 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 updated pt on this as best i could (4) Generalized weakness: failure to thrive PT/OT eval and treat, but significant other still endorsed goal of home (5) A-fib: rate remains controlled not able to be safely anticoagulated due to multiple bleeding issues (6) Acute blood loss anemia: has been stable off anticoagulation (7) Lupus anticoagulant positive: multiple episodes of bleeding on anticoagulation have precluded their use; after discussions with significant other has been on 90mg prednisone for several weeks - d/w heme locally (who s/o wants pt to follow with) on 02/20 and they agreed weaning reasonable - changed to 70mg prednisone and follow up heme/onc as outpt (8) DVT prophylaxis: SCDs (pharmacologic contraindicated due to his bleeding issues) (9) Discharge planning issues: PT/OT eval and treat speech eval and treat // video fluoro saturday son and significant other seem to have different thoughts on goals of care, ideally pt/son/significant other will all be able to discuss together (inability to have visitors combined with patient's rather significant hearing loss makes this difficult currently) right now planning appears to be home once above sorted out. Admission and Anticipated Discharge Date Admission Date: February 18, 2020 Subjective feeling lousy but fairly nonspecific. quite hard to communicate due to hard of hearing. notes back hurts and joints ache. question of maybe being sob. mostly though he just wants me to put the blanket over his shoulders (which i do) Review of Systems Review of Systems: All systems reviewed & are unremarkable except as noted in HPI & below very difficult hx but seems otherwise negative Physical Exam Physical Exam: gen awake, nad. sitting upright in chair. heent nc at mmm. lungs now for the most part cta b/l maybe faintly diminished base R but overall clear no r/r/w good effort no accessory muscles. ext no cyanosis, chronic mild edema type changes no joint effusions at knees. Results & Data Results & Data ([facility]) Vital Signs (Past 12 Hours) Vital Signs Temp Pulse Pulse Resp BP Pulse Ox 02/21/20 15:08 91 H 02/21/20 07:35 97.5 F L 61 18 143/75 H 100 02/21/20 07:25 54 L 02/21/20 03:45 106 H 20 93 PG Care Time/CCT Total # of Minutes Spent Total Time Spent with Patient: Total time spent is greater than 50% in coordination of care (as documented) at patient's floor/unit and/or counseling patient: Coding Level of Care Code 70966 Subseq Hosp Care Lvl 2 Diagnoses Leukocytosis D72.829 Leukocytosis type: unspecified Pneumonia J18.9 Laterality: left Lung location: lower lobe of lung Pneumonia type: due to unspecified organism PEG (percutaneous endoscopic gastrostomy) status Z93.1 Generalized weakness R53.1 A-fib I48.0 Atrial fibrillation type: paroxysmal Acute blood loss anemia D62 Lupus anticoagulant positive R76.0 DVT prophylaxis Z29.9 Discharge planning issues Z02.9 (1) Leukocytosis Leukocytosis type: unspecified Qualified Code(s): D72.829 - Elevated white blood cell count, unspecified (2) Pneumonia Laterality: left Lung location: lower lobe of lung Pneumonia type: due to unspecified organism Qualified Code(s): J18.9 - Pneumonia, unspecified organism (3) A-fib Atrial fibrillation type: paroxysmal Qualified Code(s): I48.0 - Paroxysmal atrial fibrillation
[2020-02-21] MEDS: POLYETHYLENE (MIRALAX) 17 GM PACK PO SCH (17:22)
[2020-02-21] MEDS: TAMSULOSIN HCL 0.4 MG CAP PO SCH (21:02)
[2020-02-22 07:20] LABS: Eosinophils # (auto) 0.02 K/uL (0-0.5); Eosinophils % (auto) 0.2 %; Hematocrit (blood only) 36.1 % (42-52); Hemoglobin 11.7 g/dL (14.0-18.0); Immature Granulocytes # (auto) 0.06 K/uL (0.00-0.02); Immature Granulocytes % (auto) 0.5 %; Lymphocytes # (auto) 1.59 K/uL (1.2-3.4); Lymphocytes % (auto) 13.2 %; Mean Corpuscular Hemoglobin 27.8 pg (25-34); Mean Corpuscular Hgb Conc 32.4 g/dL (32-36); Mean Corpuscular Volume 85.7 fL (80-100); Mean Platelet Volume 9.8 fL (7.4-10.4); Monocytes # (auto) 1.26 K/uL (0.11-0.59); Monocytes % (auto) 10.5 %; Neutrophils # (auto) 9.08 K/uL (1.4-6.5); Neutrophils % (auto) 75.6 %; Platelet Count 181 K/uL (130-400); RDW Coefficient of Variation 15.2 % (11.5-14.5); RDW Standard Deviation 48.1 fL (36.4-46.3); Red Blood Count 4.21 M/uL (4.7-6.1); White Blood Count 12.01 K/uL (4.8-10.8)
[2020-02-22] MEDS: AMOXICILLIN/CLAVULANATE 875 MG TAB PO SCH ×2 (08:34→17:25)
[2020-02-22] MEDS: FLUTICASONE/VILANTEROL 100/25MCG 14 PUFFS/INHALER INH SCH (08:34)
[2020-02-22] MEDS: predniSONE 20 MG TAB PO SCH (08:35)
[2020-02-22] MEDS: LIDOCAINE 5% 1 PATCH TD SCH (08:35)
[2020-02-22] MEDS: CITALOPRAM 20 MG TAB PO SCH (08:35)
[2020-02-22] MEDS: ATORVASTATIN 40 MG TAB PO SCH (08:36)
[2020-02-22] MEDS: INSULIN GLARGINE SOLOSTAR 100 UNITS/ML 3 ML PEN SC SCH (08:36)
[2020-02-22] MEDS: PANTOprazole 40 MG TAB PO SCH ×2 (08:36→20:55)
[2020-02-22] MEDS: POLYETHYLENE (MIRALAX) 17 GM PACK PO SCH (08:40)
[2020-02-22] MEDS: INSULIN ASPART 100 UNITS/ML 3 ML PEN SC SCH ×4 (08:45→20:55)
--- NOTE | 2020-02-22 10:28 | Fluoroscopy Report ---
FL video swallow HISTORY: Dysphagia r/o aspiration TECHNIQUE: Video fluoroscopic evaluation of swallowing was performed in the AP and lateral projection s by the speech pathology staff. The patient is fed nectar-thick and thin liquid barium, a barium coa rose wafer, and barium pudding. FLUOROSCOPY TIME: 2 minutes 30 seconds NUMBER OF FLUOROSCOPIC IMAGES: 589 COMPARISON STUDY: None. FINDINGS: There is normal hyoid excursion and epiglottic deflection. Trace amount of intermittent asp iration with all food substances. This is diminished with semisolid substances IMPRESSION: 1. Trace intermittent aspiration 2. Please see the speech pathologist report for detailed findings and recommendations. ACT 112: Negative or not required by law. The above report was generated using voice recognition software. It may contain grammatical, syntax or spelling errors. Electronically signed by: Alex Ndiaye M.D. 02/22/2020 10:27 AM
--- NOTE | 2020-02-22 14:43 | Palliative Care Progress Note ---
Date of Service February 22, 2020 Assessment & Plan (1) Goals of care, counseling/discussion: - Patient is a 74 yo male patient with PMH significant for Lupus Anticoagulant, acute blood loss anemia related to recent upper GI bleeds, gastric motility disorder, diabetes mellitus, CAD, COPD, HEYDI, BPH, CVA, dysphagia with PEG tube placement, aspiration pneumonia, atrial fibrillation unable to be on AC due to bleeding risk who, presented to the hospital on 02/17 after several mechanical falls at home. He is admitted with possible aspiration pneumonia, is being treated with abx. Patient has had a very complicated medical course since about 6 months ago. It started with pneumonia and sepsis. 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 Patient had a PEG tube placed. He then developed a hematoma for which he was treated at [facility] [address]. He went to [facility] for rehab, but had to return to [facility] again. Patient was then having issues with not tolerating tube feedings and gastric dysmotility issues. He developed GI bleed and was again transferred to [facility] for IR procedure. He had an EGD and had clips placed. Patient has bled with multiple attempts to restart AC, so he is no longer on blood thinners including low-dose ASA.. After patient's last stay at [facility], he was transferred back to [facility] for rehab. He progressed fairly well and was sent home to live with his significant other, Tammy. At [facility], they were also able to transition patient back to a modified oral diet of pureed foods and thickened liquids. Family reports that at home after he was in [facility], he was eating regular solid foods, but still thickening liquids. Patient was able to walk with a walker and some assistance, but he had become weaker in the last couple weeks and has had multiple falls at home. Given his extensive history, palliative care is now consulted to discuss goals of care. -Goals of care-patient has some memory issues and limited insight, but for the most part he was able to answer simple questions appropriately. -Patient states his son, George Lassiter, is his POA. His significant other, Tammy, is his primary pocket grinder operator. -Patient, his son, George, as well as his significant other-have the same goal- patient to return home with increase caregivers and home health. Possible transition depending on his course to hospice when needed -Family aware that patient continues to aspirate. Family agrees that patient prefers to eat by mouth despite the risk of aspiration. -Goal is to get patient home with his s/o Tamym with paid givers and home health. If he continues to decline at home, the option of transitioning to hospice care rather than patient continuing to come to the hospital had been discussed with both son and significant other. -No symptom management needs at this time. PPS 40%. (2) Generalized weakness: (3) Fall: (4) Pneumonia: Subjective Patient awake, more alert on exam today. Patient without any complaints, states he is comfortable. Patient did have a video swallow-showed trace intermittent aspiration with all consistencies. Review of Systems Review of Systems: Patient denied pain, fever, chills, shortness of breath, or abdominal pain Physical Exam Physical Exam: PE: Patient awake and alert, NAD HEENT: [place], EOMI Respirations: Lungs clear on exam CV: Regular rate, no edema Abdomen: Soft, nontender, positive bowel sounds Extremities: Generalized weakness, full range of motion Results & Data Vital Signs (Past 12 Hours) Vital Signs Temp Pulse Pulse Resp BP Pulse Ox 02/22/20 11:32 97.7 F 65 18 109/44 L 97 02/22/20 09:23 99 02/22/20 08:00 52 L 02/22/20 07:48 97.9 F 62 20 144/84 H 100 02/22/20 04:06 96.8 F L 61 20 126/70 100 PG Care Time/CCT Total # of Minutes Spent Total Time Spent with Patient: Total time spent 35 minutes with greater than 50% of the time spent at bedside assessing patient's current status as well as assessing his insight and goals of care Coding Level of Care Code 72929 Subseq Hosp Care Lvl 3 Diagnoses Goals of care, counseling/discussion Z71.89 Generalized weakness R53.1 Fall W19.XXXA Encounter type: initial encounter Pneumonia J18.9 Laterality: left Lung location: lower lobe of lung Pneumonia type: due to unspecified organism Time Spent (min) 35 (1) Fall Encounter type: initial encounter Qualified Code(s): W19.XXXA - Unspecified fall, initial encounter (2) Pneumonia Laterality: left Lung location: lower lobe of lung Pneumonia type: due to unspecified organism Qualified Code(s): J18.9 - Pneumonia, unspecified organism
--- NOTE | 2020-02-22 15:58 | Hospitalist Progress Note ---
Date of Service February 22, 2020 Assessment & Plan (1) Leukocytosis: Chronic secondary to steroid use with acute elevation likely due to aspiration pneumonia -Continues to improve today back to baseline of 12 -Continue treating as aspiration pneumonia - CT marginally positive, known significant aspiration risk -clinically doing quite well -continue on augmentin to complete a 7-day course (2) Pneumonia: aspiration -improved clinically Not requiring any oxygen -Continue augmentin finish out 7-day course speech eval appreciated-had video swallow study which showed intermittent silent aspiration with all consistencies-recommending honey thickened liquids and no mixed consistency foods such as cereal and milk -Recommend home speech therapy-discussed with patient's girlfriend and she is in agreement with plan of treatment (3) PEG (percutaneous endoscopic gastrostomy) status: Patient and his girlfriend would like removed as is no longer using this. -Recommend f/u GI as outpt once endoscopies that are not emergent are being performed again due to COVID-19 -Patient was also to have repeat push enteroscopy to re-eval small bowel lesion- patient's girlfriend is hoping for push enteroscopy and PEG removal be done at the same time (4) Generalized weakness: failure to thrive PT/OT eval and treat, but significant other still endorsed goal of home (5) A-fib: rate remains controlled, is in a sinus rhythm here not able to be safely anticoagulated due to multiple bleeding issues in the past (6) Acute blood loss anemia: has been stable off anticoagulation Hemoglobin stable today at 11.7 No evidence of bleeding (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 With history of strokes, PE also. Was found to have factor VIII inhibitor positive with a low factor VIII and low factor II levels as well as a positive lupus anticoagulant on work-up both here and at [facility]-old records reviewed -Was started on prednisone 90 mg daily (1 mg/KG daily) at the beginning of January upon discharge from [facility]-he was to have outpatient follow-up with hematology which never happened and therefore remained on 90 mg daily until now- he has been having weakness and falls which could be from a steroid induced myopathy-previous hospitalist discussed with local hematology who recommends okay to decrease to 70 mg daily of prednisone -We will arrange for outpatient hematology follow-up with Dr. Peri at [facility] -Continue Bactrim DS 1 tab Saturday for PCP prophylaxis-I restarted this today (8) Lupus anticoagulant positive: As above (9) Fall: With a history of multiple falls just prior to admission and again a fall while in the hospital on 02/21-sustained no injuries -Needs continued PT/OT with close supervision (10) Sleep apnea: -Continue CPAP at nighttime (11) COPD (chronic obstructive pulmonary disease): No acute exacerbation -Continue Brio Ellipta and albuterol as needed (12) Discharge planning issues: PT/OT eval and treat recommending [facility] facility but patient's girlfriend is okay with bringing him home and getting extra care in the house with 27/05 care Plan for home with home health likely tomorrow Appreciate palliative care consultation to assist with goals of care (13) DVT prophylaxis: SCDs (pharmacologic contraindicated due to his bleeding issues) Admission and Anticipated Discharge Date Admission Date: February 18, 2020 Anticipated date of discharge: 02/23/20 Subjective Pt reports feeling better, some cough. Denies chest pain or abdominal pain, no nausea. He is eating and moving his bowels. He is anxious to get out of the hospital. Telemetry with sinus arrhythmia, normal sinus rhythm, bigeminy, rates in the 50s to 70s. I discussed his care at length with his on the phone. I also discussed his care with palliative care medicine He had a fall today shortly before I saw him where he tried to walk back to the bed from the bathroom on his own and his walker fell over. He denied any pain or headache. He was able to get up with the assistance of 2 nurses and walk back to his bed. Review of Systems Review of Systems: All systems reviewed & are unremarkable except as noted in HPI & below Physical Exam Constitutional: WD/WN, vitals as above Eyes: + anicteric sclerae Neck: trachea midline, no thyromegaly Respiratory: normal respiratory effort, lungs clear to auscultation Cardiovascular: RRR, no murmur, no edema Chest (Breasts): Chest: normal inspection of chest Gastrointestinal (Abdomen): normal bowel sounds, soft, nontender, no hepatosplenomegaly Musculoskeletal: Extremities: extremities normal to inspection; no cyanosis and no clubbing Skin: no rashes, warm and dry Neurologic: moves all extremities and awake Psychiatric: Orientation: alert, oriented to person, oriented to place and cooperative Speech: normal rate/rhythm/volume of speech Affect: euthymic affect Lymphatic: no lymphedema Results & Data Results & Data ([facility]) Vital Signs (Past 12 Hours) Vital Signs Temp Pulse Pulse Resp BP Pulse Ox 02/22/20 11:32 36.5 C 65 18 109/44 L 97 02/22/20 09:23 99 02/22/20 08:00 52 L 02/22/20 07:48 36.6 C 62 20 144/84 H 100 02/22/20 04:06 36.0 C L 61 20 126/70 100 Laboratory Results 02/22/20 02/22/20 02/22/20 Range/Units 16:32 11:35 07:59 WBC (4.8-10.8) K/uL RBC (4.7-6.1) M/uL Hgb (14.0-18.0) g/dL Hct (42-52) % MCV (80-100) fL MCH (25-34) pg MCHC (32-36) g/dL RDW Std Deviation (36.4-46.3) fL RDW Coeff of [place] (11.5-14.5) % Plt Count (130-400) K/uL MPV (7.4-10.4) fL Immature Gran % (Auto) % Neut % (Auto) % Lymph % (Auto) % [place] % (Auto) % Eos % (Auto) % Baso % (Auto) % Immature Gran # (Auto) (0.00-0.02) K/uL Neut # (Auto) (1.4-6.5) K/uL Lymph # (Auto) (1.2-3.4) K/uL [place] # (Auto) (0.11-0.59) K/uL Eos # (Auto) (0-0.5) K/uL Baso # (Auto) (0-0.2) K/uL POC Glucose 135 H 148 H 87 (70-99) mg/dl 02/22/20 02/21/20 Range/Units 06:56 20:12 WBC 12.01 H (4.8-10.8) K/uL RBC 4.21 L (4.7-6.1) M/uL Hgb 11.7 L (14.0-18.0) g/dL Hct 36.1 L (42-52) % MCV 85.7 (80-100) fL MCH 27.8 (25-34) pg MCHC 32.4 (32-36) g/dL RDW Std Deviation 48.1 H (36.4-46.3) fL RDW Coeff of [place] 15.2 H (11.5-14.5) % Plt Count 181 (130-400) K/uL MPV 9.8 (7.4-10.4) fL Immature Gran % (Auto) 0.5 % Neut % (Auto) 75.6 % Lymph % (Auto) 13.2 % [place] % (Auto) 10.5 % Eos % (Auto) 0.2 % Baso % (Auto) 0.0 % Immature Gran # (Auto) 0.06 H (0.00-0.02) K/uL Neut # (Auto) 9.08 H (1.4-6.5) K/uL Lymph # (Auto) 1.59 (1.2-3.4) K/uL [place] # (Auto) 1.26 H (0.11-0.59) K/uL Eos # (Auto) 0.02 (0-0.5) K/uL Baso # (Auto) 0.00 (0-0.2) K/uL POC Glucose 168 H (70-99) mg/dl PG Care Time/CCT Total # of Minutes Spent Total Time Spent with Patient: Total time spent is greater than 50% in coordination of care (as documented) at patient's floor/unit and/or counseling patient: Coding Level of Care Code 71344 Subseq Hosp Care Lvl 3 Diagnoses Leukocytosis D72.829 Leukocytosis type: unspecified Pneumonia J18.9 Laterality: left Lung location: lower lobe of lung Pneumonia type: due to unspecified organism PEG (percutaneous endoscopic gastrostomy) status Z93.1 Generalized weakness R53.1 A-fib I48.0 Atrial fibrillation type: paroxysmal Acute blood loss anemia D62 Factor VIII inhibitor disorder D68.318 Lupus anticoagulant positive R76.0 Fall W19.XXXA Encounter type: initial encounter Sleep apnea G47.33 Sleep apnea type: obstructive COPD (chronic obstructive pulmonary disease) J44.1 COPD type: COPD with acute exacerbation Discharge planning issues Z02.9 DVT prophylaxis Z29.9 (1) A-fib Atrial fibrillation type: paroxysmal Qualified Code(s): I48.0 - Paroxysmal atrial fibrillation (2) Leukocytosis Leukocytosis type: unspecified Qualified Code(s): D72.829 - Elevated white blood cell count, unspecified (3) Pneumonia Laterality: left Lung location: lower lobe of lung Pneumonia type: due to unspecified organism Qualified Code(s): J18.9 - Pneumonia, unspecified organism (4) Fall Encounter type: initial encounter Qualified Code(s): W19.XXXA - Unspecified fall, initial encounter (5) Sleep apnea Sleep apnea type: obstructive Qualified Code(s): G47.33 - Obstructive sleep apnea (adult) (pediatric) (6) COPD (chronic obstructive pulmonary disease) COPD type: COPD with acute exacerbation Qualified Code(s): J44.1 - Chronic obstructive pulmonary disease with (acute) exacerbation
[2020-02-22] MEDS: TAMSULOSIN HCL 0.4 MG CAP PO SCH (20:55)
[2020-02-22] MEDS ORDERED: SULFAMETHOXAZOLE/TRIMETHOPRIM DS 800/160MG TAB PO SCH (21:00)
[2020-02-23 06:55] LABS: Eosinophils # (auto) 0.05 K/uL (0-0.5); Eosinophils % (auto) 0.4 %; Hematocrit (blood only) 36.8 % (42-52); Immature Granulocytes # (auto) 0.06 K/uL (0.00-0.02); Immature Granulocytes % (auto) 0.5 %; Lymphocytes # (auto) 1.43 K/uL (1.2-3.4); Lymphocytes % (auto) 11.5 %; Mean Corpuscular Hemoglobin 27.7 pg (25-34); Mean Corpuscular Hgb Conc 32.6 g/dL (32-36); Mean Platelet Volume 10.4 fL (7.4-10.4); Monocytes % (auto) 8.8 %; Neutrophils # (auto) 9.79 K/uL (1.4-6.5); Neutrophils % (auto) 78.8 %; Platelet Count 160 K/uL (130-400); RDW Coefficient of Variation 15.1 % (11.5-14.5); RDW Standard Deviation 47.3 fL (36.4-46.3); Red Blood Count 4.33 M/uL (4.7-6.1); White Blood Count 12.43 K/uL (4.8-10.8)
[2020-02-23 07:27] VITALS: BP 137/79; TEMP 98.2; O2SAT 99
[2020-02-23 07:29] LABS: BUN Creatinine Ratio 23.6 (10-20); Calcium 8.3 mg/dl (8.5-10.1); Creatinine Clr Calc Pharmacy 101.2 ml/min; Est GFR (African American) 105.9; Est GFR (Non-African American) 91.4; Potassium 3.8 mmol/L (3.5-5.1)
[2020-02-23] MEDS: AMOXICILLIN/CLAVULANATE 875 MG TAB PO SCH (08:11)
[2020-02-23] MEDS: FLUTICASONE/VILANTEROL 100/25MCG 14 PUFFS/INHALER INH SCH (08:11)
[2020-02-23] MEDS: CITALOPRAM 20 MG TAB PO SCH (08:12)
[2020-02-23] MEDS: LIDOCAINE 5% 1 PATCH TD SCH (08:12)
[2020-02-23] MEDS: predniSONE 20 MG TAB PO SCH (08:13)
[2020-02-23] MEDS: POLYETHYLENE (MIRALAX) 17 GM PACK PO SCH (08:13)
[2020-02-23] MEDS: ATORVASTATIN 40 MG TAB PO SCH (08:13)
[2020-02-23] MEDS: PANTOprazole 40 MG TAB PO SCH (08:14)
[2020-02-23] MEDS: INSULIN GLARGINE SOLOSTAR 100 UNITS/ML 3 ML PEN SC SCH (08:21)
[2020-02-23] MEDS: INSULIN ASPART 100 UNITS/ML 3 ML PEN SC SCH ×2 (08:21→12:12)
--- NOTE | 2020-02-23 11:35 | Pharmacy Report ---
Pharmacy Glycemic Short Note 2 - Date of Service February 23, 2020 - Glycemic Short BSG Results (Last 24 hours): 02/22/20 02/22/20 02/22/20 11:35 16:32 20:22 Glucose POC Glucose 148 H 135 H 173 H 02/23/20 02/23/20 02/23/20 06:38 07:37 11:23 Glucose 94 POC Glucose 89 70 OUTPATIENT ANTIDIABETIC REGIMEN: * n/a * HbA1c: 6.1% (12/13/19) * Prednisone 90mg PO daily INPATIENT INSULIN REGIMEN AND RISK FACTORS FOR INSULIN RESISTANCE: ASSESSMENT: * Mr. Lassiter's BSGs have been quite stable on prednisone 70 mg daily * Pre-lunch on the lower side today so will loosen CR just slightly to prevent hypoglycemia PLAN FOR INPATIENT GLYCEMIC CONTROL: * Basal insulin: no change * Lantus 10 units SQ daily in AM * Bolus insulin: * NovoLog per scale ACHS or Q6hrs while NPO * Goal Range: Low 110 mg/dL - High 140 mg/dL * Correction Factor: 25 mg/dL/unit * Nutritional / Prandial insulin per carb ratio: LOOSEN from 1 unit per 8 -> 9 grams CHO consumed PLAN FOR DISCHARGE: * Recent A1c (6.1%) indicates that pt likely will not require any changes on discharge.
--- NOTE | 2020-02-23 12:12 | Discharge Summary ---
Date of Service February 23, 2020 Admission HPI Per Admitting Provider Mr. Lassiter is a 74 yo medically complicated gentleman who presented to the [facility] ED for evaluation of progressive weakness over the past week, resulting in 3 mechanical falls. Mr. Lassiter is a poor historian and lethargic when interviewed; unfortunately no family was present at bedside for additional history. He recently completed a 10 day stint of acute rehab at [facility], discharged 02/03. He was sent to [facility] following an unfortunate series of medical events over the course of the past 6-7 months. His troubles started with a pneumonia from which he became septic. Subsequently, he suffered a CVA, which was complicated by aspiration PNA and has left him with left sided weakness and oropharyngeal dysphagia, requiring PEG tube placement. Etiology of his stroke was felt to be embolic secondary to A-fib, which was acutely managed with a heparin drip. PEG tube placement incited a hemoperitoneum and rectus sheath hematoma, for which he was transferred from [facility] to [facility] for further management. Additionally, Mr. Lassiter has multiple underlying medical conditions complicating his overall prognosis. He is + for Lupus Anticoagulant for which he follows with [facility]-onc, acute blood loss anemia related to recent upper GI bleeds, gastric motility disorder, diabetes mellitus, CAD, COPD, HEYDI and BPH. Although his history would qualify him for anticoagulation, this has been withhe ld given two recent bleeds when trialed on blood thinners, one after being started on a DOAC and a second while on the heparin drip. He was evaluated by [facility] within the past year for IVC filter placement but deemed not a candidate. ED Course: Afeb. Hr 78. 136/70. RR 13. Satting 99 on RA. WBC elevated to 25 with neutrophil predominance. Procal normal. Lactate 3.3. Flu negative. Respiratory viral panel ordered. UA without signs of infection. Blood cultures obtained. Hgb 12.2, MCV 86. Sodium slightly low at 133. Troponin undetectable. EKG ordered. Head CT negative for acute process but with extensive microvascular disease (official read pending). C-spine CT without fractures, official read pending. Chest CTA without evidence of PE, but with groundglass consolidation in LLL and atelectasis throughout bilateral lung serrano. Pelvis Xray obtained. Knee Xray obtained. He was started on Vancomycin, Cefepime, and Doxycycline. Given bolus of 1 liter of normal saline. Principal Diagnosis Aspiration pneumonia, falls, ambulatory dysfunction Discharge Exam Constitutional WD/WN, vitals as above Eyes + anicteric sclerae Neck trachea midline, no thyromegaly Respiratory normal respiratory effort, lungs clear to auscultation Cardiovascular RRR, no murmur, no edema Chest (Breasts) Chest: normal inspection of chest Gastrointestinal (Abdomen) normal bowel sounds, soft, nontender, no hepatosplenomegaly Musculoskeletal Extremities: extremities normal to inspection; no cyanosis and no clubbing Skin no rashes, warm and dry Neurologic moves all extremities and awake; + CN's not intact (chronic left sided facial droop) Psychiatric Orientation: alert, oriented to person, oriented to place and cooperative Speech: normal rate/rhythm/volume of speech Affect: euthymic affect Lymphatic no lymphedema Discharge Data Allergies Allergy/AdvReac Type Severity Reaction Status Date / Time fluticasone Allergy Mild Hives Verified 02/18/20 02:26 salmeterol Allergy Mild Hives Verified 02/18/20 02:26 Consultations 02/18/20 06:39 Consult Palliative Care Routine 02/18/20 06:39 Consult Case Management - Discharge Planning Routine 02/20/20 14:20 Consult [facility] epoxy specialist Routine 02/22/20 18:00 Consult [facility] epoxy specialist Routine Ordered Studies 02/18/20 02:36 CT cervical spine wo con Urgent CT head/brain wo con Urgent 02/18/20 02:38 CT angio chest PE protocol Urgent 02/22/20 00:00 FL video swallow Routine Pelvis xray Knee xray Hospital Course (1) Leukocytosis: Chronic secondary to steroid use with acute elevation to the 20s likely due to aspiration pneumonia -improved back to baseline of 12 and stable -Continue treating as aspiration pneumonia - CT marginally positive, known significant aspiration risk -clinically doing quite well -continue on augmentin to complete a 7-day course -follow CBC in [address] [facility] home health (2) Pneumonia: aspiration -improved clinically Not requiring any oxygen -Continue augmentin finish out 7-day course on 02/24/20 speech eval appreciated-had video swallow study which showed intermittent silent aspiration with all consistencies-recommending honey thickened liquids and no mixed consistency foods such as cereal and milk -Recommend home speech therapy-discussed with patient's girlfriend and she is in agreement with plan of treatment (3) PEG (percutaneous endoscopic gastrostomy) status: Patient and his girlfriend would like removed as is no longer using this. -Recommend f/u GI as outpt once endoscopies that are not emergent are being performed again due to COVID-19 -Patient was also to have repeat push enteroscopy to re-eval small bowel lesion- patient's girlfriend is hoping for push enteroscopy and PEG removal be done at the same time (4) Generalized weakness: failure to thrive PT/OT eval and treat, but significant other still endorsed goal of home (5) A-fib: rate remains controlled, is in a sinus rhythm here not able to be safely anticoagulated due to multiple bleeding issues in the past (6) Acute blood loss anemia: has been stable off anticoagulation has known Factor 8 inhibitor causing bleeding issues Hemoglobin stable today at 12 No evidence of bleeding throughout his stay -follow CBC on Saturday with home health (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 With history of strokes, PE also. 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 Whitt -We will arrange for outpatient hematology follow-[facility] -Continue Bactrim DS 1 tab Saturday for PCP prophylaxis while on high dose prednisone (8) Lupus anticoagulant positive: As above, with a h/o CVA and PE (9) Fall: With a history of multiple falls just prior to admission and again a fall while in the hospital on 02/21-sustained no injuries -Needs continued PT/OT with close supervision (10) Sleep apnea: -Continue CPAP at nighttime (11) COPD (chronic obstructive pulmonary disease): No acute exacerbation -Continue Brio Ellipta and albuterol as needed (12) Discharge planning issues: PT/OT eval and treat recommending halfway facility but patient's girlfriend is okay with bringing him home and getting extra care in the house with 27/05 care Plan for home with home health today Appreciate palliative care consultation to assist with goals of care (13) DVT prophylaxis: SCDs (pharmacologic contraindicated due to his bleeding issues) Total Time Total Time Spent Total Time Spent (In Minutes): 40 min Total Time Includes: Examination of the Patient, Discharge Planning, Medication Reconciliation and Communication With Other Providers (Hematology) Discharge Plan Discharge Items Patient Disposition: Home - Home Health Services Reason For Visit: FALL Discharge Diagnosis: Fall, Aspiration pneumonia, ambulatory dysfunction Condition on Discharge: Fair Activity: As commented below Lifting: Gradually increase as tolerated Bathing: No limitations Exercise/Sports: Gradually increase as tolerated Exercise Comment: with home PT/OT Driving/Machine Use: No driving Non-emergency contact: Primary Care Provider Call non-emergency contact if: you have any medication questions and your symptoms worsen Follow-up/Referrals: Kimani Meier CRNP [Primary Care Provider] - (Please follow up within 2 weeks.) Carroll Whitt DO [Physician] - (Dr. Whitt's office will contact you regarding an appointment date and time) Diet: Carb Consistent or DM2 Diet Texture: Dental soft (bite-sized) Liquid Consistency: Honey thick Diet Comment: Please see Speech Therapy recommendations Addtl Attending Provider Instructions: Please have the [employer] [facility] provide a bath aide to assist with bathing/grooming. Please provide PT/OT, and speech therapy with home health agency. Finish out one more day of the antibiotics for your aspiration pneumonia and carefully follow all recommendations from the Speech therapist. You will not be able to have your PEG tube removed likely for another month due to scheduling issues with COVID-19. Please taper down your prednisone by 10mg every 10 days [address] you see Dr. Whitt in follow up. He will go down to 60mg daily on 03/02/20. Please check your blood work with a CBC and BMP on Saturday02/29/20 with [facility]. Pending Studies at Discharge: No Stand-Alone Forms: My [facility] Medications and DC Order Prescriptions: New amoxicillin-pot clavulanate [Augmentin] 875-125 mg Tablet 1 tab PO BIDM Qty: 3 RF: 0 Continued atorvastatin 40 mg tablet 40 mg PO DAILY Qty: 90 RF: 1 citalopram [Celexa] 10 mg tablet 10 mg PO DAILY Qty: 90 RF: 1 omeprazole 40 mg capsule,delayed release(DR/EC) 40 mg PO BID Qty: 180 RF: 1 lidocaine 4 % adhesive patch,medicated 1 patch TOP DAILY RF: 0 acetaminophen 160 mg/5 mL suspension See Rx Instructions PO QID RF: 0 sulfamethoxazole-trimethoprim [Bactrim DS] 800-160 mg Tablet 1 tab PO 3XWK RF: 0 Will 7-7-1.5 gram Powder In Packet 1 ea PO BID RF: 0 ipratropium-albuterol 0.5 mg-3 mg(2.5 mg base)/3 mL Solution For Nebulization 3 ml INHALATION Q4H PRN (Reason: Wheezing) RF: 0 tamsulosin 0.4 mg capsule 0.4 mg PO QPM RF: 0 acetaminophen [Tylenol Arthritis Pain] 650 mg Tablet Extended Release 650 mg PO Q8H PRN (Reason: Fever) RF: 0 cranberry 500 mg Capsule 2,500 mg PO DAILY RF: 0 fluticasone furoate-vilanterol 100-25 mcg/dose Blister With Device 1 inh INHALATION DAILY RF: 0 Changed prednisone 10 mg tablet 70 mg PO DAILY Qty: 0 RF: 0 Discontinued tramadol 50 mg tablet 50 mg PO Q6H PRN (Reason: Pain) RF: 0 Discharge Orders: Discharge Order (Routine); Ordered 02/23/20 Ordered By: Karen Barney Admission Data Admit Date/Time: 02/18/20 04:59 Attending Provider: Karen Barney Admit Provider: Josefina Silva Primary Care Provider: Kimani Meier Other Providers: Puja Louis ; Usman Moss Coding Level of Care Code D/C Day Management >30 mins Diagnoses Leukocytosis D72.829 Leukocytosis type: unspecified Pneumonia J18.9 Laterality: left Lung location: lower lobe of lung Pneumonia type: due to unspecified organism PEG (percutaneous endoscopic gastrostomy) status Z93.1 Generalized weakness R53.1 A-fib I48.0 Atrial fibrillation type: paroxysmal Acute blood loss anemia D62 Factor VIII inhibitor disorder D68.318 Lupus anticoagulant positive R76.0 Fall W19.XXXA Encounter type: initial encounter Sleep apnea G47.33 Sleep apnea type: obstructive COPD (chronic obstructive pulmonary disease) J44.1 COPD type: COPD with acute exacerbation Discharge planning issues Z02.9 DVT prophylaxis Z29.9
[2020-02-23 12:29] VITALS: PULSE 66
--- NOTE | 2020-02-23 13:37 | Palliative Care Progress Note ---
Date of Service February 23, 2020 Assessment & Plan (1) Goals of care, counseling/discussion: - Patient is a 74 yo male patient with PMH significant for Lupus Anticoagulant, acute blood loss anemia related to recent upper GI bleeds, gastric motility disorder, diabetes mellitus, CAD, COPD, HEYDI, BPH, CVA, dysphagia with PEG tube placement, aspiration pneumonia, atrial fibrillation unable to be on AC due to bleeding risk who, presented to the hospital on 02/17 after several mechanical falls at home. He is admitted with possible aspiration pneumonia, is being treated with abx. Patient has had a very complicated medical course since about 6 months ago. It started with pneumonia and sepsis. 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 Patient had a PEG tube placed. He then developed a hematoma for which he was treated at [facility]. He went to [facility] for rehab, but had to return to [facility] again. Patient was then having issues with not tolerating tube feedings and gastric dysmotility issues. He developed GI bleed and was again transferred to [facility] for IR procedure. He had an EGD and had clips placed. Patient has bled with multiple attempts to restart AC, so he is no longer on blood thinners including low-dose ASA.. After patient's last stay at [facility], he was transferred back to [facility] for rehab. He progressed fairly well and was sent home to live with his significant other, Tammy. At [facility], they were also able to transition patient back to a modified oral diet of pureed foods and thickened liquids. Family reports that at home after he was in [facility], he was eating regular solid foods, but still thickening liquids. Patient was able to walk with a walker and some assistance, but he had become weaker in the last couple weeks and has had multiple falls at home. -Goals of care-patient has some memory issues and limited insight, but for the most part he was able to answer simple questions appropriately. -Patient states his son, George Lassiter, is his POA. His significant other, Tammy, is his primary armature straightener. -Patient, his son, George, as well as his significant other-have the same goal- patient to return home with increase caregivers and home health. Possible transition depending on his course to hospice when needed -Family aware that patient continues to aspirate. Family agrees that patient prefers to eat by mouth despite the risk of aspiration. -Goal is to get patient home with his s/o Tammy with paid givers and home health. If he continues to decline at home, the option of transitioning to hospice. -No symptom management needs at this time. PPS 40%. (2) Generalized weakness: (3) Fall: (4) Pneumonia: Subjective Patient seen and examined, patient slightly more short of breath after transferring from chair to bed. Patient had just completed eating lunch-had coarse breath sounds left>> right. Patient not aware of any aspiration symptoms. Patient is for discharge home today with his significant other with home health. Review of Systems Review of Systems: Patient denies pain, fever, chills, increased shortness of breath or abdominal pain Physical Exam Physical Exam: PE: Slightly short of breath after exertion HEENT: QUINAULT-patient was wearing hearing aids and was able to hear easily. Respirations: Coarse rhonchi left greater than right, patient did not attempt to cough even when asked to CV: Regular rate Abdomen: Soft, nontender, obese Extremities: Generalized weakness-able to stand and transfer with min assist Results & Data Vital Signs (Past 12 Hours) Vital Signs Temp Pulse Pulse Pulse Resp BP BP 02/23/20 12:25 98.2 F 66 18 137/79 02/23/20 12:00 99.1 F 89 20 133/72 02/23/20 07:35 63 02/23/20 07:25 98.2 F 66 18 137/79 02/23/20 03:55 66 17 02/23/20 03:47 97.5 F L 64 18 144/80 H Pulse Ox 02/23/20 12:25 99 02/23/20 12:00 95 02/23/20 07:35 02/23/20 07:25 99 02/23/20 03:55 96 02/23/20 03:47 98 PG Care Time/CCT Total # of Minutes Spent Total Time Spent with Patient: Total time spent 35 minutes with greater than 50% of the time spent at bedside attempting to educate patient regarding aspiration, collaborated with attending physician and nursing on patient's floor/unit Coding Level of Care Code 10028 Subseq Hosp Care Lvl 3 Diagnoses Goals of care, counseling/discussion Z71.89 Generalized weakness R53.1 Fall W19.XXXA Encounter type: initial encounter Pneumonia J18.9 Laterality: left Lung location: lower lobe of lung Pneumonia type: due to unspecified organism Time Spent (min) 35 (1) Fall Encounter type: initial encounter Qualified Code(s): W19.XXXA - Unspecified fall, initial encounter (2) Pneumonia Laterality: left Lung location: lower lobe of lung Pneumonia type: due to unspecified organism Qualified Code(s): J18.9 - Pneumonia, unspecified organism
== END 2020-02-23 16:35 | disposition home health service (06) | DRG 178 ==
LOC: ED 02:07 → 2W 04:59 → SUATTDRO 04:59 → 2W 05:35

== ENCOUNTER 2021-07-25 00:47 | Inpatient (IN) ==
--- NOTE | 2021-07-25 01:17 | Emergency Department Note ---
History of Present Illness General Chief complaint: Respiratory Distress Stated complaint: RESPIRATORY DISTRESS Time Seen by Provider: 07/25/21 01:01 History of Present Illness 75-year-old male presents to the ED with a chief complaint of some shortness of breath. The patient, according to the has had a slight cold for the past 4 days. He has had some increased mucus and a mild cough. 9 PM tonight, the patient had a nebulizer before bed. The states that he woke diaphoretic and short of breath. The reports that his oxygen saturations was 92% at that time. She states that he is normally 95%. He seemed to be wheezing a little more than she expected and she was worried that the oxygen saturations might drop and therefore called EMS. EMS brought him in for evaluation. He has not had any fevers. No nausea vomiting. Denies any chest pains. He does have a chronic history of COPD as well is a multitude of other medical problems. He is chronically on rivaroxaban. Home Medications Medication Instructions Recorded Confirmed Type acetaminophen 650 mg 650 mg PO Q8H PRN 02/18/20 07/25/21 History tablet,extended release (Tylenol Arthritis Pain) ipratropium 0.5 mg-albuterol 3 mg 3 ml INHALATION Q4H PRN #360 ml 08/18/20 07/25/21 Rx (2.5 mg base)/3 mL nebulization soln rivaroxaban 20 mg tablet (Xarelto) 20 mg PO QAM 10/19/20 07/25/21 History albuterol sulfate 90 mcg/actuation 2 puff INHALATION Q4H PRN #18 g 07/13/21 07/25/21 Rx aerosol inhaler resveratrol 50 mg capsule 50 mg PO QAM 07/13/21 07/25/21 History 3 Fiber Force 6 1 dose PO QAM 07/25/21 07/25/21 History atorvastatin 40 mg tablet 40 mg PO HS 07/25/21 07/25/21 History cholecalciferol (vitamin D3) 125 125 mcg PO QAM 07/25/21 07/25/21 History mcg (5,000 unit) capsule citalopram 20 mg tablet 20 mg PO HS 07/25/21 07/25/21 History coQ10 (ubiquinol) 200 mg capsule 200 mg PO QAM 07/25/21 07/25/21 History fluticasone fur. 100 mcg-umeclid 1 inh INHALATION QAM 07/25/21 07/25/21 History 62.5 mcg-vilant 25 mcg inhalat.powder (Trelegy Ellipta) omega-3 fatty acids-fish oil 360 1 cap PO BID 07/25/21 07/25/21 History mg-1,200 mg capsule omeprazole 40 mg capsule,delayed 40 mg PO DAILYBB 07/25/21 07/25/21 History release tramadol 50 mg tablet 50 mg PO Q6H PRN 07/25/21 07/25/21 History Allergies Allergy/AdvReac Type Severity Reaction Status Date / Time fluticasone Allergy Mild Hives Verified 07/25/21 01:25 salmeterol Allergy Mild Hives Verified 07/25/21 01:25 Past Med/Surg History Medical History Acute embolic stroke (~02/2020) 12/2019 secondary to afib [facility] Acute ischemic stroke had multiple from testing, 12/2019 was last one will start xarelto after Dr. Elena removes Peg tube Arthritis BPH (benign prostatic hyperplasia) Bronchitis CAD (coronary artery disease) COPD (chronic obstructive pulmonary disease) Diabetes mellitus Elevated PSA Factor VIII inhibitor disorder Dr. 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, including canthus Paroxysmal atrial fibrillation Pulmonary embolism Sleep apnea (~09/2014) 09/14/2014- Urinary incontinence Surgical History H/O knee surgery History of bronchoscopy History of cardiac catheterization (~05/01/10) 05/01/2010-PCI of OM 2 with CAROLINE History of sinus surgery PEG (percutaneous endoscopic gastrostomy) status (~12/2019) placed due to stroke and then had bleeding after PEG tube insertion was sent to [facility] and found weak vessel in small bowel and clamped it had blood transfusion Family History Mother , in her 70s of an [place] Heart disease Hypertension Father , in his late 60s of pulmonary issues Emphysema, unspecified Hearing loss Grandfather Gabriel Denies family history of Ovarian cancer Prostate cancer Breast cancer Lung cancer Colorectal cancer Cancer Asthma Social History Smoking Status: Former smoker Tobacco Type: Cigarettes Age Started Using Tobacco: 15; Age Quit Using Tobacco: 44; packs per day: 2; Years Smoked: 29; Second Hand Exposure: No; Hx Alcohol Use: No Hx Substance Use: No Preferred Language: Slovak Communication Ability: Effective Visual Impairment: No Limitations Hearing Ability: Use of Hearing Aid Materials Scheduler 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 [employer] other: Retired age 52 Feels Safe at Home: Yes Diet Comment: regular caffeine: Yes during the past year weight has: remained stable Dental Care, Regularly: Yes Physical Activity Frequency: Does not Exercise Seatbelt Use: always Sunscreen Use: No Assistive Devices: Hearing Aid - Bilateral and Wheelchair Review of Systems A total of 10 systems reviewed and were otherwise negative Physical Exam Vital Signs Vital Signs - 24 hr 07/25/21 01:00 07/25/21 01:09 07/25/21 01:14 Temperature 36.9 C Temperature Source Oral Pulse Rate 102 H 101 H Pulse Rate from SpO2 Sensor 100 H Respiratory Rate 21 18 Respiratory Effort / Characteristics Non-Labored Spontaneous Accessory Muscle Use Non-Labored Spontaneous Accessory Muscle Use Respiratory Depth Normal Normal Respiratory Pattern Regular Regular Blood Pressure 149/85 H 128/94 Blood Pressure Mean 106 105 Blood Pressure Position Sitting Pulse Oximetry 100 95 Oxygen Delivery Method Room Air Room Air Sepsis Recent Fever Within 48 Hours No Sepsis New/Unexplained Change in Mental Status No Sepsis Action Taken by Nursing No Action Required 07/25/21 01:30 Temperature Temperature Source Pulse Rate 99 H Pulse Rate from SpO2 Sensor 98 H Respiratory Rate 24 Respiratory Effort / Characteristics Respiratory Depth Respiratory Pattern Blood Pressure 128/78 Blood Pressure Mean 94 Blood Pressure Position Pulse Oximetry 93 Oxygen Delivery Method Room Air Sepsis Recent Fever Within 48 Hours Sepsis New/Unexplained Change in Mental Status Sepsis Action Taken by Nursing CONSTITUTIONAL/VITAL SIGNS: Reviewed / noted above. GENERAL: Non-toxic in appearance. INTEGUMENTARY: Warm, dry, and [place]. HEAD: Normocephalic. EYES: without scleral icterus or trauma. ENT/OROPHARYNX: clear and moist. LYMPHADENOPATHY/NECK: Is supple without lymphadenopathy or meningismus. RESPIRATORY: Diminished bilaterally. No increased work of breathing. CARDIOVASCULAR: Regular rate and rhythm. GI/ABDOMEN: Soft and nontender. No organomegaly or pulsatile mass. EXTREMITIES: Warm and well perfused. BACK: No CVA tenderness. NEUROLOGICAL: Intact without focal deficits. PSYCHIATRIC: normal affect. MUSCULOSKELETAL: Normally developed with good muscle tone. TRIAGE NURSING DOCUMENTATION REVIEWED. Medical Decision Making Differential Diagnosis The differential was considered includes acute myocardial infarction, acute coronary syndrome, myocarditis, pericarditis, pericardial effusions /tamponad, esophageal perforation, pulmonary embolism, pneumonia, pneumothorax, cardiomyopathy, congestive heart, anemia , COPD/asthma exacerbation. Medical Records Attestation: I reviewed the patient's medical records. Home Medications Current Medication List: was personally reviewed by me Laboratory Data Attestation: I reviewed the patient's lab results. Result diagrams: 07/25/21 00:56 07/25/21 00:56 Lab Results 07/25/21 07/25/21 Range/Units 00:56 00:56 WBC 10.42 (4.8-10.8) K/uL RBC 4.84 (4.7-6.1) M/uL Hgb 14.0 (14.0-18.0) g/dL Hct 42.4 (42-52) % MCV 87.6 (80-100) fL MCH 28.9 (25-34) pg MCHC 33.0 (32-36) g/dL RDW Std Deviation 43.1 (36.4-46.3) fL RDW Coeff of [place] 13.4 (11.5-14.5) % Plt Count 222 (130-400) K/uL MPV 9.8 (7.4-10.4) fL Immature Gran % (Auto) 0.2 % Neut % (Auto) 69.2 % Lymph % (Auto) 15.8 % [place] % (Auto) 8.0 % Eos % (Auto) 6.6 % Baso % (Auto) 0.2 % Neut # (Auto) 7.21 H (1.4-6.5) K/uL Lymph # (Auto) 1.65 (1.2-3.4) K/uL [place] # (Auto) 0.83 H (0.11-0.59) K/uL Eos # (Auto) 0.69 H (0-0.5) K/uL Baso # (Auto) 0.02 (0-0.2) K/uL Immature Gran # (Auto) 0.02 (0.00-0.02) K/uL Sodium 140 (136-145) mmol/L Potassium 4.1 (3.5-5.1) mmol/L Chloride 110 H (98-107) mmol/L Carbon Dioxide 29 (21-32) mmol/L Anion Gap 1.0 L (3-11) BUN 23 H (7-18) mg/dl Creatinine 1.02 (0.6-1.4) mg/dl Est Cr Clr Drug Dosing Not Reportable Est GFR ( Amer) 82.9 ml/min Est GFR (Non-Af Amer) 71.6 ml/min BUN/Creatinine Ratio 22.4 H (10-20) Glucose 123 H (70-99) mg/dl Calcium 8.8 (8.5-10.1) mg/dl Total Bilirubin 0.5 (0.2-1) mg/dl AST 13 L (15-37) U/L ALT 21 (12-78) U/L Alkaline Phosphatase 107 (45-117) U/L Troponin I 0.175 H* (0-0.045) ng/ml Total Protein 6.6 (6.4-8.2) gm/dl Albumin 3.7 (3.4-5.0) gm/dl Globulin 2.9 (2.5-4.0) gm/dl Albumin/Globulin Ratio 1.3 (0.9-2) Imaging Data My Impression: Chest x-ray: Per my interpretation there is no acute disease. No pneumonia or pneumothorax. ECG Data Attestation: I personally reviewed and interpreted this ECG as follows: Additional Comments: Twelve-lead EKG: Per my interpretation there is a normal sinus rhythm at a rate of 90. Right bundle branch block. No ST elevation. No ectopy. No significant change from April 20, 2020. MDM Narrative Patient presents with some mild shortness of breath. He does have nebulizers at home. The gave him 1 before coming in. Overall his breathing is diminished but he is not in any distress. His vital signs are stable. His EKG does not show any acute ischemic changes. CBC and chemistry panel were unremarkable. Chest x-ray did not show acute process. Troponin is mildly elevated. The patient is chronically on Eliquis. He was given aspirin p.o. He will be seen by the hospitalist for further inpatient evaluation and care. He is currently not having any chest pain at this time. Impression & Plan Elevated troponin, Dyspnea Discharge Plan Visit Data Chief Complaint: Respiratory Distress Stated Complaint: RESPIRATORY DISTRESS ED Provider: Shane Carroll Discharge Problem: Elevated troponin, Dyspnea Patient Disposition: Being Evaluated by Hospitalist Forms Stand Alone Forms: [facility] [place]: [employer] Prescriptions Prescriptions: No Action Xarelto 20 mg tablet 20 mg PO QAM RF: 0 ipratropium-albuterol 0.5 mg-3 mg(2.5 mg base)/3 mL solution for nebulization 3 ml INHALATION Q4H PRN (Reason: Wheezing) Qty: 360 RF: 5 resveratrol 50 mg capsule 50 mg PO QAM RF: 0 albuterol sulfate 90 mcg/actuation HFA aerosol inhaler 2 puff INHALATION Q4H PRN (Reason: Shortness Of Breath) Qty: 18 RF: 5 acetaminophen [Tylenol Arthritis Pain] 650 mg Tablet Extended Release 650 mg PO Q8H PRN (Reason: Fever) RF: 0 3 Fiber Force 6 1 dose PO QAM RF: 0 atorvastatin 40 mg Tablet 40 mg PO HS RF: 0 omega-3 fatty acids-fish oil 360-1,200 mg Capsule 1 cap PO BID RF: 0 coQ10 (ubiquinol) 200 mg Capsule 200 mg PO QAM RF: 0 omeprazole 40 mg capsule,delayed release(DR/EC) 40 mg PO DAILYBB RF: 0 tramadol 50 mg tablet 50 mg PO Q6H PRN (Reason: Pain) RF: 0 citalopram 20 mg tablet 20 mg PO HS RF: 0 cholecalciferol (vitamin D3) 125 mcg (5,000 unit) capsule 125 mcg PO QAM RF: 0 Trelegy Ellipta 100-62.5-25 mcg blister with device 1 inh inhalation QAM RF: 0 Referrals Referrals: Kimani Meier CRNP [Primary Care Provider] -
[2021-07-25 01:34] LABS: Basophils # (auto) 0.02 K/uL (0-0.2); Basophils % (auto) 0.2 %; Eosinophils # (auto) 0.69 K/uL (0-0.5); Eosinophils % (auto) 6.6 %; Hematocrit (blood only) 42.4 % (42-52); Immature Granulocytes # (auto) 0.02 K/uL (0.00-0.02); Immature Granulocytes % (auto) 0.2 %; Lymphocytes # (auto) 1.65 K/uL (1.2-3.4); Lymphocytes % (auto) 15.8 %; Mean Corpuscular Hemoglobin 28.9 pg (25-34); Mean Corpuscular Volume 87.6 fL (80-100); Mean Platelet Volume 9.8 fL (7.4-10.4); Monocytes # (auto) 0.83 K/uL (0.11-0.59); Neutrophils # (auto) 7.21 K/uL (1.4-6.5); Neutrophils % (auto) 69.2 %; Platelet Count 222 K/uL (130-400); RDW Coefficient of Variation 13.4 % (11.5-14.5); RDW Standard Deviation 43.1 fL (36.4-46.3); Red Blood Count 4.84 M/uL (4.7-6.1); White Blood Count 10.42 K/uL (4.8-10.8)
[2021-07-25 01:45] LABS: Alanine Aminotransferase 21 U/L (12-78); Albumin Level 3.7 gm/dl (3.4-5.0); Aspartate Aminotransferase 13 U/L (15-37); BUN Creatinine Ratio 22.4 (10-20); Blood Urea Nitrogen 23 mg/dl (7-18); Calcium 8.8 mg/dl (8.5-10.1); Carbon Dioxide 29 mmol/L (21-32); Chloride 110 mmol/L (98-107); Est GFR (African American) 82.9 ml/min; Est GFR (Non-African American) 71.6 ml/min; Glucose 123 mg/dl (70-99); Potassium 4.1 mmol/L (3.5-5.1); Sodium 140 mmol/L (136-145)
[2021-07-25 02:07] LABS: Albumin Globulin Ratio 1.3 (0.9-2); Alkaline Phosphatase 107 U/L (45-117); Bilirubin,Total 0.5 mg/dl (0.2-1); Globulin 2.9 gm/dl (2.5-4.0); Total Protein 6.6 gm/dl (6.4-8.2); Troponin I 0.175 ng/ml (0-0.045)
[2021-07-25] MEDS ORDERED: ASPIRIN 81 MG CHEW PO STA (02:14)
--- NOTE | 2021-07-25 03:20 | History & Physical Report ---
Date of Service July 25, 2021 Assessment & Plan (1) Elevated troponin: Plan: With episode of SOB. -Telemetry monitoring -Heparin gtt -Trend troponin -Check 2d echo -Cardiology consultation appreciated -Continue statin -Start asa (2) Dyspnea: Plan: Episode of dyspnea and diaphoresis. Now with mildly elevated troponin. On blood thinner for history of PAF -trend troponin -check echo -cardiology consultation (3) COPD (chronic obstructive pulmonary disease): Plan: Chronic -Duoneb q 4 -Albuterol as needed (4) Hypercholesterolemia: Plan: Chronic -Continue Atorvastatin (5) Hypertension: Plan: No medications currently -Monitor (6) PAF (paroxysmal atrial fibrillation): Plan: NSR currently -Heparin gtt as above - History of Present Illness Chief Complaint: Shortness of breath, diaphoresis Primary Care Provider: ROWAN Melo Kei Lassiter is a 75-year-old male with history of coronary artery disease status post stent placement to the RCA in April 2010, mild COPD, hypertension, paroxysmal atrial fibrillation and prior PE presently on anticoagulation with rivaroxaban. Patient presenting with acute episode of shortness of breath, diaphoresis and mild elevation in troponin of 0.175. Per , patient went to bed around 2100 and fell asleep right away. He woke shortly after gasping for air and markedly diaphoretic. states she checked his pulse ox shortly after and it was found to be 92%. Patient denies chest pain or pressure, palpitations, fever, chills, cough. Presently he is feeling well. states that yesterday he had an episode of myoclonic jerking. He also endorses episodic dizziness as well as cramping in his legs and 2 days of wheezing. has been giving him albuterol every 4 hours over the last 2 days. Allergies Allergy/AdvReac Type Severity Reaction Status Date / Time fluticasone Allergy Mild Hives Verified 07/25/21 01:25 salmeterol Allergy Mild Hives Verified 07/25/21 01:25 Home Medications Medication Instructions Recorded Confirmed Type acetaminophen 650 mg 650 mg PO Q8H PRN 02/18/20 07/25/21 History tablet,extended release (Tylenol Arthritis Pain) ipratropium 0.5 mg-albuterol 3 mg 3 ml INHALATION Q4H PRN #360 ml 08/18/20 07/25/21 Rx (2.5 mg base)/3 mL nebulization soln rivaroxaban 20 mg tablet (Xarelto) 20 mg PO QAM 10/19/20 07/25/21 History albuterol sulfate 90 mcg/actuation 2 puff INHALATION Q4H PRN #18 g 07/13/21 07/25/21 Rx aerosol inhaler resveratrol 50 mg capsule 50 mg PO QAM 07/13/21 07/25/21 History 3 Fiber Force 6 1 dose PO QAM 07/25/21 07/25/21 History atorvastatin 40 mg tablet 40 mg PO HS 07/25/21 07/25/21 History cholecalciferol (vitamin D3) 125 125 mcg PO QAM 07/25/21 07/25/21 History mcg (5,000 unit) capsule citalopram 20 mg tablet 20 mg PO HS 07/25/21 07/25/21 History coQ10 (ubiquinol) 200 mg capsule 200 mg PO QAM 07/25/21 07/25/21 History fluticasone fur. 100 mcg-umeclid 1 inh INHALATION QAM 07/25/21 07/25/21 History 62.5 mcg-vilant 25 mcg inhalat.powder (Trelegy Ellipta) omega-3 fatty acids-fish oil 360 1 cap PO BID 07/25/21 07/25/21 History mg-1,200 mg capsule omeprazole 40 mg capsule,delayed 40 mg PO DAILYBB 07/25/21 07/25/21 History release tramadol 50 mg tablet 50 mg PO Q6H PRN 07/25/21 07/25/21 History Past Med/Surg History Medical History Acute embolic stroke (~02/2020) 12/2019 secondary to afib [facility] Acute ischemic stroke had multiple from testing, 12/2019 was last one will start xarelto after Dr. Elena removes Peg tube Arthritis BPH (benign prostatic hyperplasia) Bronchitis CAD (coronary artery disease) COPD (chronic obstructive pulmonary disease) Diabetes mellitus Elevated PSA Factor VIII inhibitor disorder Dr. 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, including canthus Paroxysmal atrial fibrillation Pulmonary embolism Sleep apnea (~09/2014) 09/14/2014- Urinary incontinence Surgical History H/O knee surgery History of bronchoscopy History of cardiac catheterization (~05/01/10) 05/01/2010-PCI of OM 2 with CAROLINE History of sinus surgery PEG (percutaneous endoscopic gastrostomy) status (~12/2019) placed due to stroke and then had bleeding after PEG tube insertion was sent to [facility] and found weak vessel in small bowel and clamped it had blood transfusion Family History Mother , in her 70s of an CO Heart disease Hypertension Father , in his late 60s of pulmonary issues Emphysema, unspecified Hearing loss Grandfather Stroke Denies family history of Ovarian cancer Prostate cancer Breast cancer Lung cancer Colorectal cancer Cancer Asthma Social History Smoking Status: Former smoker Tobacco Type: Cigarettes Age Started Using Tobacco: 15; Age Quit Using Tobacco: 44; packs per day: 2; Years Smoked: 29; Second Hand Exposure: No; Hx Alcohol Use: No Hx Substance Use: No Preferred Language: Serbian Communication Ability: Effective Visual Impairment: No Limitations Hearing Ability: Use of Hearing Aid Orientation & Mobility Specialist 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 [employer] other: Retired age 52 Feels Safe at Home: Yes Diet Comment: regular caffeine: Yes during the past year weight has: remained stable Dental Care, Regularly: Yes Physical Activity Frequency: Does not Exercise Seatbelt Use: always Sunscreen Use: No Assistive Devices: Hearing Aid - Bilateral and Wheelchair Review of Systems Review of Systems: All systems reviewed & are unremarkable except as noted in HPI & below Physical Exam Physical Exam: General: patient resting comfortably, NAD, non-toxic in appearance, AA&O x 4 Skin: warm, dry, intact, no rashes or lesions HEENT: NC/AT, PERRL, EOMI, anicteric sclera, conjunctiva without injection, external ear normal to inspection and nontender, nares patent, moist mucus membranes, dentition intact, no oropharyngeal lesions, neck supple, trachea midline, no LAD, no thyromegaly, no JVD Heart: +S1/S2, regular, no m/r/g Lungs: equal air entry bilaterally, no rales/rhonchi, diminished air flow with scattered end-expiratory wheezing Abd: +BS, soft, NT/ND, no masses/organomegaly/ascites Ext: warm, 2+ pulses in UE/LE bilaterally, no clubbing/cyanosis or edema Neuro: nonfocal, patient AA&O x 4, speech intact, no facial droop, moving all extremities on command with equal strength 5/5 Results & Data Results & Data ([facility]) Vital Signs (Past 12 Hours) Vital Signs Temp Pulse Resp BP Pulse Ox 07/25/21 02:30 94 H 24 135/95 93 07/25/21 02:00 90 21 129/77 93 07/25/21 01:30 99 H 24 128/78 93 07/25/21 01:10 90 22 96 07/25/21 01:09 36.9 C 101 H 18 128/94 95 07/25/21 01:00 102 H 21 149/85 H 100 Laboratory Results Laboratory Results WBC 10.42 K/uL (4.8-10.8) 07/25/21 00:56 RBC 4.84 M/uL (4.7-6.1) 07/25/21 00:56 Hgb 14.0 g/dL (14.0-18.0) 07/25/21 00:56 Hct 42.4 % (42-52) 07/25/21 00:56 MCV 87.6 fL (80-100) 07/25/21 00:56 MCH 28.9 pg (25-34) 07/25/21 00:56 MCHC 33.0 g/dL (32-36) 07/25/21 00:56 RDW Std Deviation 43.1 fL (36.4-46.3) 07/25/21 00:56 RDW Coeff of Katlin 13.4 % (11.5-14.5) 07/25/21 00:56 Plt Count 222 K/uL (130-400) 07/25/21 00:56 MPV 9.8 fL (7.4-10.4) 07/25/21 00:56 Immature Gran % (Auto) 0.2 % 07/25/21 00:56 Neut % (Auto) 69.2 % 07/25/21 00:56 Lymph % (Auto) 15.8 % 07/25/21 00:56 Hudspeth % (Auto) 8.0 % 07/25/21 00:56 Eos % (Auto) 6.6 % 07/25/21 00:56 Baso % (Auto) 0.2 % 07/25/21 00:56 Neut # (Auto) 7.21 K/uL (1.4-6.5) H 07/25/21 00:56 Lymph # (Auto) 1.65 K/uL (1.2-3.4) 07/25/21 00:56 Hudspeth # (Auto) 0.83 K/uL (0.11-0.59) H 07/25/21 00:56 Eos # (Auto) 0.69 K/uL (0-0.5) H 07/25/21 00:56 Baso # (Auto) 0.02 K/uL (0-0.2) 07/25/21 00:56 Immature Gran # (Auto) 0.02 K/uL (0.00-0.02) 07/25/21 00:56 Sodium 140 mmol/L (136-145) 07/25/21 00:56 Potassium 4.1 mmol/L (3.5-5.1) 07/25/21 00:56 Chloride 110 mmol/L (98-107) H 07/25/21 00:56 Carbon Dioxide 29 mmol/L (21-32) 07/25/21 00:56 Anion Gap 1.0 (3-11) L 07/25/21 00:56 BUN 23 mg/dl (7-18) H 07/25/21 00:56 Creatinine 1.02 mg/dl (0.6-1.4) 07/25/21 00:56 Est Cr Clr Drug Dosing Not Reportable 07/25/21 00:56 Est GFR ( Amer) 82.9 ml/min 07/25/21 00:56 Est GFR (Non-Af Amer) 71.6 ml/min 07/25/21 00:56 BUN/Creatinine Ratio 22.4 (10-20) H 07/25/21 00:56 Glucose 123 mg/dl (70-99) H 07/25/21 00:56 Calcium 8.8 mg/dl (8.5-10.1) 07/25/21 00:56 Total Bilirubin 0.5 mg/dl (0.2-1) 07/25/21 00:56 AST 13 U/L (15-37) L 07/25/21 00:56 ALT 21 U/L (12-78) 07/25/21 00:56 Alkaline Phosphatase 107 U/L (45-117) 07/25/21 00:56 Troponin I 0.175 ng/ml (0-0.045) H* 07/25/21 00:56 Total Protein 6.6 gm/dl (6.4-8.2) 07/25/21 00:56 Albumin 3.7 gm/dl (3.4-5.0) 07/25/21 00:56 Globulin 2.9 gm/dl (2.5-4.0) 07/25/21 00:56 Albumin/Globulin Ratio 1.3 (0.9-2) 07/25/21 00:56 COVID-19 Eval Order Covid19 at [facility] 07/25/21 02:30 SARS-CoV-2 (PCR) NEGATIVE (Negative) 07/25/21 02:30 ECG Additional Comments: EKG with wide QRS, RBB, rate of 101. RBBB present on prior Code Status & VTE Plan VTE Prophylaxis Plan VTE Prophylaxis will be ordered: Yes PG Care Time/CCT Total # of Minutes Spent Total Time Spent with Patient: Total time spent is greater than 50% in coordination of care (as documented) at patient's floor/unit and/or counseling patient: Coding Level of Care Code 56768 Initial Inpt Care Lvl 3 Diagnoses Elevated troponin R77.8 Dyspnea R06.00 COPD (chronic obstructive pulmonary disease) J44.9 Hypercholesterolemia E78.00 Hypertension I10 PAF (paroxysmal atrial fibrillation) I48.0
[2021-07-25] MEDS ORDERED: Heparin IV Adult Wt-Based Standard *NO* Bolus Protocol IV ONE (05:30)
[2021-07-25] MEDS ORDERED: ONDANSETRON INJ 2 MG/ML 2 ML VIAL IV PRN (05:30)
[2021-07-25] MEDS ORDERED: ALBUTEROL 0.5% NEB SOLN 2.5 MG/0.5 ML VIAL NEB PRN (05:30)
[2021-07-25] MEDS ORDERED: ACETAMINOPHEN 325 MG TAB PO PRN (05:30)
[2021-07-25] MEDS ORDERED: traMADol HCL 50 MG TABLET PO PRN (05:30)
[2021-07-25] MEDS: HEPARIN SODIUM/DEXTROSE 25,000 UNITS/500 ML BAG IV SCH (06:39)
[2021-07-25] MEDS: ALBUT/IPRATROP 3MG/0.5MG NEB 3 ML VIAL NEB SCH ×5 (07:05→22:31)
--- NOTE | 2021-07-25 07:12 | Hospitalist Progress Note ---
Date of Service July 25, 2021 Assessment & Plan (1) Dyspnea: Plan: 75yo Male PMH COPD 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 (1) Elevated troponin: - With episode of SOB at home. Pulse ox on admit 100% RA -Heparin started [id number] at 69813A/hr, APPT 94.9, heparin stopped for 1hr and restarted at 150U less -Troponin on admit 0.175, max 1.04 downtrending as of 07/25 -Echo 07/25 EF 65-70%, mild concentric LVH, Grade I diastolic dysfunction -Telemetry monitoring -Cardiology consulted, suspect PE, ordered Chest CT angiogram - pending -Continue statin, ASA (2) Dysphagia -patient has mod/severe dysphagia since CVA 2019, last evaluated by speech therapy June 2021 -per speech therapy note, patient can tolerate honey thick liquids and small bites. -low suspicion for aspiration pneumonia given WBC 10.42, however home aspiration event still possible (3) COPD (chronic obstructive pulmonary disease) Exacerbation treated with Duonebs in ED -Chronic, no home oxygen -no wheeze on PE -continue Duoneb, Albuterol as needed (5) Dyspnea: -Episode of dyspnea and diaphoresis at home. -Pulse ox currently 93% RA, no complaints SOB -CXR no acute findings -suspect cardiac, COPD, or aspiration etiology, see above (6) Hypertension: -continue to monitor (7) PAF (paroxysmal atrial fibrillation): -continue heparin -continue telemetry (8) Hypercholesterolemia: -Continue Atorvastatin (9)GERD -continue Protonix (10)Depression -continue Citalopram FENa: honey thick liquids Code Status: Full DVT PPX: heparin PT/OT: ordered Case Management: [] Dispo: [] Zabrina Harris Do PGY 1, FCM (2) Elevated troponin: (3) COPD (chronic obstructive pulmonary disease): (4) Dysphagia: (5) PAF (paroxysmal atrial fibrillation): (6) Hypercholesterolemia: (7) Hypertension: (8) COPD (chronic obstructive pulmonary disease): Admission and Anticipated Discharge Date Admission Date: July 25, 2021 Supervising Physician Co-Signing Physician Notes Resident Physician Supervision Note: I independently interviewed and examined the patient and verified the henry history and physical, reviewed labs and image studies and agree with resident Dr. Harris findings and care plan. Subjective 75yo Male PMH COPD CVA 2019 w/dysphagia, CAD s/p stent 2009, CHF, HTN, Paroxysmal afib, Factor VIII inhibition disorder, Lupus anticoagulation positive , PE on xarelto here for SOB and elevated troponins. He states that he woke up last night SOB and sweating, tried his nebulizer which helped a little, then came to ED. Patient seen at bedside laying comfortably, not complaining of chest pain abd pain SOB at this time. Patient has a jones catheter Review of Systems Review of Systems: Negative fever chills Negative headache dizziness Negative chest pain palpitations SOB Negative nausea vomitting diarrhea constipation Negative numbness tingling rash swelling Physical Exam Physical Exam: General: Well appearing, age appropriate Heart: RRR, +S1 S2, no murmurs/gallops/rubs Lungs: cta b/l, no wheezes/rales/rhonchi, mild conversational dyspnea Abd: soft, NT/ND, +BS Extremities: no swelling, no rashes Results & Data Results & Data ([facility]) Vital Signs (Past 12 Hours) Vital Signs Temp Pulse Pulse Resp BP Pulse Ox 07/25/21 07:05 78 20 92 07/25/21 04:30 77 18 141/88 H 96 07/25/21 04:00 82 19 134/81 95 07/25/21 03:30 79 20 134/79 95 07/25/21 03:00 91 H 22 154/90 H 94 07/25/21 02:30 94 H 24 135/95 93 07/25/21 02:00 90 21 129/77 93 07/25/21 01:30 99 H 24 128/78 93 07/25/21 01:10 90 22 96 07/25/21 01:09 36.9 C 101 H 18 128/94 95 07/25/21 01:00 102 H 21 149/85 H 100 Laboratory Results 07/25/21 07/25/21 07/25/21 Range/Units 14:51 12:13 06:28 WBC (4.8-10.8) K/uL RBC (4.7-6.1) M/uL Hgb (14.0-18.0) g/dL Hct (42-52) % MCV (80-100) fL MCH (25-34) pg MCHC (32-36) g/dL RDW Std Deviation (36.4-46.3) fL RDW Coeff of Katlin (11.5-14.5) % Plt Count (130-400) K/uL MPV (7.4-10.4) fL Immature Gran % (Auto) % Neut % (Auto) % Lymph % (Auto) % Floyd % (Auto) % Eos % (Auto) % Baso % (Auto) % Neut # (Auto) (1.4-6.5) K/uL Lymph # (Auto) (1.2-3.4) K/uL Floyd # (Auto) (0.11-0.59) K/uL Eos # (Auto) (0-0.5) K/uL Baso # (Auto) (0-0.2) K/uL Immature Gran # (Auto) (0.00-0.02) K/uL APTT 94.9 H* (21.0-31.0) Seconds PTT Ratio 3.6 Sodium (136-145) mmol/L Potassium (3.5-5.1) mmol/L Chloride (98-107) mmol/L Carbon Dioxide (21-32) mmol/L Anion Gap (3-11) BUN (7-18) mg/dl Creatinine (0.6-1.4) mg/dl Est Cr Clr Drug Dosing Est GFR ( Amer) ml/min Est GFR (Non-Af Amer) ml/min BUN/Creatinine Ratio (10-20) Glucose (70-99) mg/dl Calcium (8.5-10.1) mg/dl Magnesium (1.8-2.4) mg/dl Total Bilirubin (0.2-1) mg/dl AST (15-37) U/L ALT (12-78) U/L Alkaline Phosphatase (45-117) U/L Troponin I 0.907 H* 1.040 H* (0-0.045) ng/ml NT-Pro-B Natriuret Pep (0-900) pg/ml Total Protein (6.4-8.2) gm/dl Albumin (3.4-5.0) gm/dl Globulin (2.5-4.0) gm/dl Albumin/Globulin Ratio (0.9-2) COVID-19 Eval Order SARS-CoV-2 (PCR) (Negative) 07/25/21 07/25/21 07/25/21 Range/Units 06:28 02:30 02:30 WBC (4.8-10.8) K/uL RBC (4.7-6.1) M/uL Hgb (14.0-18.0) g/dL Hct (42-52) % MCV (80-100) fL MCH (25-34) pg MCHC (32-36) g/dL RDW Std Deviation (36.4-46.3) fL RDW Coeff of Katlin (11.5-14.5) % Plt Count (130-400) K/uL MPV (7.4-10.4) fL Immature Gran % (Auto) % Neut % (Auto) % Lymph % (Auto) % Floyd % (Auto) % Eos % (Auto) % Baso % (Auto) % Neut # (Auto) (1.4-6.5) K/uL Lymph # (Auto) (1.2-3.4) K/uL Floyd # (Auto) (0.11-0.59) K/uL Eos # (Auto) (0-0.5) K/uL Baso # (Auto) (0-0.2) K/uL Immature Gran # (Auto) (0.00-0.02) K/uL APTT (21.0-31.0) Seconds PTT Ratio Sodium (136-145) mmol/L Potassium (3.5-5.1) mmol/L Chloride (98-107) mmol/L Carbon Dioxide (21-32) mmol/L Anion Gap (3-11) BUN (7-18) mg/dl Creatinine (0.6-1.4) mg/dl Est Cr Clr Drug Dosing Est GFR ( Amer) ml/min Est GFR (Non-Af Amer) ml/min BUN/Creatinine Ratio (10-20) Glucose (70-99) mg/dl Calcium (8.5-10.1) mg/dl Magnesium 2.2 (1.8-2.4) mg/dl Total Bilirubin (0.2-1) mg/dl AST (15-37) U/L ALT (12-78) U/L Alkaline Phosphatase (45-117) U/L Troponin I (0-0.045) ng/ml NT-Pro-B Natriuret Pep 412 (0-900) pg/ml Total Protein (6.4-8.2) gm/dl Albumin (3.4-5.0) gm/dl Globulin (2.5-4.0) gm/dl Albumin/Globulin Ratio (0.9-2) COVID-19 Eval Order Covid19 at [facility] SARS-CoV-2 (PCR) NEGATIVE (Negative) 07/25/21 07/25/21 Range/Units 00:56 00:56 WBC 10.42 (4.8-10.8) K/uL RBC 4.84 (4.7-6.1) M/uL Hgb 14.0 (14.0-18.0) g/dL Hct 42.4 (42-52) % MCV 87.6 (80-100) fL MCH 28.9 (25-34) pg MCHC 33.0 (32-36) g/dL RDW Std Deviation 43.1 (36.4-46.3) fL RDW Coeff of Katlin 13.4 (11.5-14.5) % Plt Count 222 (130-400) K/uL MPV 9.8 (7.4-10.4) fL Immature Gran % (Auto) 0.2 % Neut % (Auto) 69.2 % Lymph % (Auto) 15.8 % Floyd % (Auto) 8.0 % Eos % (Auto) 6.6 % Baso % (Auto) 0.2 % Neut # (Auto) 7.21 H (1.4-6.5) K/uL Lymph # (Auto) 1.65 (1.2-3.4) K/uL Floyd # (Auto) 0.83 H (0.11-0.59) K/uL Eos # (Auto) 0.69 H (0-0.5) K/uL Baso # (Auto) 0.02 (0-0.2) K/uL Immature Gran # (Auto) 0.02 (0.00-0.02) K/uL APTT (21.0-31.0) Seconds PTT Ratio Sodium 140 (136-145) mmol/L Potassium 4.1 (3.5-5.1) mmol/L Chloride 110 H (98-107) mmol/L Carbon Dioxide 29 (21-32) mmol/L Anion Gap 1.0 L (3-11) BUN 23 H (7-18) mg/dl Creatinine 1.02 (0.6-1.4) mg/dl Est Cr Clr Drug Dosing Not Reportable Est GFR ( Amer) 82.9 ml/min Est GFR (Non-Af Amer) 71.6 ml/min BUN/Creatinine Ratio 22.4 H (10-20) Glucose 123 H (70-99) mg/dl Calcium 8.8 (8.5-10.1) mg/dl Magnesium (1.8-2.4) mg/dl Total Bilirubin 0.5 (0.2-1) mg/dl AST 13 L (15-37) U/L ALT 21 (12-78) U/L Alkaline Phosphatase 107 (45-117) U/L Troponin I 0.175 H* (0-0.045) ng/ml NT-Pro-B Natriuret Pep (0-900) pg/ml Total Protein 6.6 (6.4-8.2) gm/dl Albumin 3.7 (3.4-5.0) gm/dl Globulin 2.9 (2.5-4.0) gm/dl Albumin/Globulin Ratio 1.3 (0.9-2) COVID-19 Eval Order SARS-CoV-2 (PCR) (Negative) Diagnostic Findings Impressions Chest X-Ray 07/25/21 01:12 XR chest 1V portable HISTORY: 75 years-old Male Dyspnea acute shortness of breath COMPARISON: CTA chest 02/18/2020, chest radiograph 12/26/2019 TECHNIQUE: Portable AP view of the chest FINDINGS: Cardiomediastinal and hilar silhouettes are within normal limits. Eventration of the right hemidiaphragm. No pneumothorax, pleural effusion or overt pulmonary edema. Mild subsegmental bibasilar atelectasis. Degenerative changes of the shoulders and spine. IMPRESSION: No acute process. ACT 112: Negative or not required by law. The above report was generated using voice recognition software. It may contain grammatical, syntax or spelling errors. Electronically signed by: Osbaldo Clemons M.D. 07/25/2021 7:16 AM Medications Administered Current Inpatient Medications Acetaminophen (Acetaminophen 325 Mg Tab) 650 mg PO Q4H PRN PRN Reason: pain/fever Stop: 08/24/21 05:29 Albuterol (Albut/Ipratrop 3mg/0.5mg Neb 3 Ml Vial) 3 ml NEB Q4R ADOLFO Stop: 08/24/21 06:59 Last Admin: 07/25/21 15:08 Dose: Not Given Documented by: Albuterol (Albuterol 0.5% Neb Soln 2.5 Mg/0.5 Ml Vial) 2.5 mg NEB Q2H PRN PRN Reason: SOB/Wheeze Stop: 08/24/21 05:29 Aspirin (Aspirin 81 Mg Chew) 81 mg PO DAILY [facility] Stop: 08/24/21 08:59 Last Admin: 07/25/21 09:30 Dose: 81 mg Documented by: Atorvastatin Calcium (Atorvastatin 40 Mg Tab) 40 mg PO HS [facility] Stop: 08/24/21 20:59 Citalopram Hydrobromide (Citalopram 20 Mg Tab) 20 mg PO HS [facility] Stop: 08/24/21 20:59 Fluticasone Furoate (Fluticasone Furoate 100mcg 14 Puffs/Inhaler) 1 puffs INH QAM [facility] Stop: 08/24/21 08:59 Last Admin: 07/25/21 09:31 Dose: 1 puffs Documented by: Heparin Sodium/Dextrose (Heparin Sodium/Dextrose) 25,000 units in 500 mls @ 28 mls/hr IV .[id number] [facility]; Protocol Stop: 08/24/21 05:29 Last Titration: 07/25/21 14:05 Dose: 1,400 units/hr, 28 mls/hr Documented by: Famotidine 20 mg/ Syringe 5 mls @ 2.5 mls/min IV BID [facility] Stop: 08/24/21 08:59 Last Admin: 07/25/21 09:30 Dose: 2.5 mls/min Documented by: Ondansetron HCl (Ondansetron Inj 2 Mg/Ml 2 Ml Vial) 4 mg IV Q6H PRN PRN Reason: Nausea Stop: 08/24/21 05:29 Tramadol HCl (Tramadol Hcl 50 Mg Tablet) 50 mg PO Q6H PRN PRN Reason: Pain Stop: 08/24/21 05:29 Umeclidinium/Vilanterol (Umeclidinium/Vilanterol 62.5/25mcg 7 Puffs/Inhaler) 1 puffs INH DAILY ADOLFO Stop: 08/24/21 08:59 Last Admin: 07/25/21 09:31 Dose: 1 puffs Documented by: Resident Activity Tracking Resident Involvement: Resident Care Provided Care Provided: Adult Hospital Medicine (1) COPD (chronic obstructive pulmonary disease) COPD type: COPD with acute exacerbation Qualified Code(s): J44.1 - Chronic obstructive pulmonary disease with (acute) exacerbation
--- NOTE | 2021-07-25 07:17 | XRay Report ---
XR chest 1V portable HISTORY: 75 years-old Male Dyspnea acute shortness of breath COMPARISON: CTA chest 02/18/2020, chest radiograph 12/26/2019 TECHNIQUE: Portable AP view of the chest FINDINGS: Cardiomediastinal and hilar silhouettes are within normal limits. Eventration of the right hemidiaphr agm. No pneumothorax, pleural effusion or overt pulmonary edema. Mild subsegmental bibasilar atelecta sis. Degenerative changes of the shoulders and spine. IMPRESSION: No acute process. ACT 112: Negative or not required by law. The above report was generated using voice recognition software. It may contain grammatical, syntax o r spelling errors. Electronically signed by: Osbaldo Clemons M.D. 07/25/2021 7:16 AM
[2021-07-25 07:23] LABS: Magnesium 2.2 mg/dl (1.8-2.4)
[2021-07-25] MEDS ORDERED: ASPIRIN 81 MG ECTAB PO SCH (09:00)
[2021-07-25] MEDS ORDERED: PANTOprazole 40 MG TAB PO SCH (09:00)
[2021-07-25] MEDS: ASPIRIN 81 MG CHEW PO SCH (09:30)
[2021-07-25] MEDS: FAMOTIDINE 20 MG in SYRINGE 3 ML IV SCH ×2 (09:30→20:22)
[2021-07-25] MEDS: UMECLIDINIUM/VILANTEROL 62.5/25MCG 7 PUFFS/INHALER INH SCH (09:31)
[2021-07-25] MEDS: FLUTICASONE FUROATE 100MCG 14 PUFFS/INHALER INH SCH (09:31)
--- NOTE | 2021-07-25 10:02 | Cardiology Consultation ---
Date of Consultation July 25, 2021 Assessment & Plan (1) Dyspnea: -awoke from sleep with a 30 minutes episode of profound shortness of breath and diaphoresis. -carries a history of a blood dyscrasia and prior pulmonary emboli. -would rule out an acute pulmonary embolism as the cause of his presenting symptoms. -doubt this represents myocardial ischemia. (2) Elevated troponin: -mild elevation is noted. -could represent RV strain if a pulmonary embolism is identified. (3) CAD (coronary artery disease): -RCA stent at time of an inferior NH in 2009. -continue medical management. (4) Hypercholesterolemia: -continue atorvastatin. History of Present Illness Attending Physician: Sherlyn Tam MD History of Present Illness Mr. Lassiter year old male admitted earlier today after an acute episode of shortness of breath. This consultation was ordered to assist in his cardiac management. Of note, patient is well known to me from the outpatient setting. The patient was in his usual state of health until last evening when he awoke from a sound sleep with profound shortness of breath diaphoresis, and anxiety. The patient claims that he could not get comfortable in bed and repositioned himself very frequently. His checked in oxygen saturation and noted to be 92%. At no time did he experience chest discomfort, syncope, or presyncope. The patient was brought to the emergency room for further care. Initial troponin I level was elevated 0.175. Fortunately, the patient was resting comfortably at the time of his emergency room evaluation. Total duration of his symptoms was approximately 30-40 minutes according to his report. 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 He is limited by left-sided weakness and dysphagia. He can ambulate with the assistance of a wheeled walker. He was also diagnosed with paroxysmal atrial fibrillation at the time of his CVA in December 2019. He has been on long-term anticoagulation since that time. He does not require rate controlling medications. The patient also carries a history of a blood dyscrasia. He has a lupus anticoagulant and factor 8 inhibitor disorder ever diagnosed in December 2019 when he had difficulty with anticoagulation related to his atrial fibrillation and CVA. He suffered a rectus sheath bleed and hemo peritoneum. He was diagnosed with coronary artery disease in April 2010 when he presented to the [facility] with an acute inferior wall NH. he had a rate coronary artery stent placed at that time. He has done well from a cardiac perspective on medical management. Currently, patient is resting comfortably in bed without complaints. Past medical and surgical history 1. Coronary artery disease 2. RCA stent-April 2010 3. Hypertension 4. Mild LVH 5. Hypercholesterolemia 6. RBBB 7. Symptomatic PACs 8. Paroxysmal SVT 9. 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 Pulmonary emboli x3 12. 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 Aspiration pneumonia/oropharyngeal dysphagia-December 2019 15. PEG tube-December 2019 16. Diabetes mellitus 17. COPD 18. DJD 19. Obstructive sleep apnea Social history , now lives with his significant other Sedentary lifestyle Quit tobacco at age 30, 30 pack year history No alcohol Family history Noncontributory Review of systems A 10 point review systems was negative except for that described above. Allergies Allergy/AdvReac Type Severity Reaction Status Date / Time fluticasone Allergy Mild Hives Verified 07/25/21 01:25 salmeterol Allergy Mild Hives Verified 07/25/21 01:25 Home Medications Medication Instructions Recorded Confirmed Type acetaminophen 650 mg 650 mg PO Q8H PRN 02/18/20 07/25/21 History tablet,extended release (Tylenol Arthritis Pain) ipratropium 0.5 mg-albuterol 3 mg 3 ml INHALATION Q4H PRN #360 ml 08/18/20 07/25/21 Rx (2.5 mg base)/3 mL nebulization soln rivaroxaban 20 mg tablet (Xarelto) 20 mg PO QAM 10/19/20 07/25/21 History albuterol sulfate 90 mcg/actuation 2 puff INHALATION Q4H PRN #18 g 07/13/21 07/25/21 Rx aerosol inhaler resveratrol 50 mg capsule 50 mg PO QAM 07/13/21 07/25/21 History 3 Fiber Force 6 1 dose PO QAM 07/25/21 07/25/21 History atorvastatin 40 mg tablet 40 mg PO HS 07/25/21 07/25/21 History cholecalciferol (vitamin D3) 125 125 mcg PO QAM 07/25/21 07/25/21 History mcg (5,000 unit) capsule citalopram 20 mg tablet 20 mg PO HS 07/25/21 07/25/21 History coQ10 (ubiquinol) 200 mg capsule 200 mg PO QAM 07/25/21 07/25/21 History fluticasone fur. 100 mcg-umeclid 1 inh INHALATION QAM 07/25/21 07/25/21 History 62.5 mcg-vilant 25 mcg inhalat.powder (Trelegy Ellipta) omega-3 fatty acids-fish oil 360 1 cap PO BID 07/25/21 07/25/21 History mg-1,200 mg capsule omeprazole 40 mg capsule,delayed 40 mg PO DAILYBB 07/25/21 07/25/21 History release tramadol 50 mg tablet 50 mg PO Q6H PRN 07/25/21 07/25/21 History Patient History Medical History Acute embolic stroke (~02/2020) 12/2019 secondary to afib [facility] Acute ischemic stroke had multiple from testing, 12/2019 was last one will start xarelto after Dr. Elena removes Peg tube Arthritis BPH (benign prostatic hyperplasia) Bronchitis CAD (coronary artery disease) COPD (chronic obstructive pulmonary disease) Diabetes mellitus Elevated PSA Factor VIII inhibitor disorder Dr. 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, including canthus Paroxysmal atrial fibrillation Pulmonary embolism Sleep apnea (~09/2014) 09/14/2014- Urinary incontinence Surgical History H/O knee surgery History of bronchoscopy History of cardiac catheterization (~05/01/10) 05/01/2010-PCI of OM 2 with CAROLINE History of sinus surgery PEG (percutaneous endoscopic gastrostomy) status (~12/2019) placed due to stroke and then had bleeding after PEG tube insertion was sent to [facility] and found weak vessel in small bowel and clamped it had blood transfusion Family History Mother , in her 70s of an NH Heart disease Hypertension Father , in his late 60s of pulmonary issues Emphysema, unspecified Hearing loss Grandfather Stroke Denies family history of Ovarian cancer Prostate cancer Breast cancer Lung cancer Colorectal cancer Cancer Asthma Social History Smoking Status: Former smoker Tobacco Type: Cigarettes Age Started Using Tobacco: 15; Age Quit Using Tobacco: 44; packs per day: 2; Years Smoked: 29; Cigarettes Per Day: 1 and a half PPD; Smoking End Date: ; Second Hand Exposure: No; Do You Dip or Chew Tobacco: No; Hx Alcohol Use: No Hx Substance Use: No Preferred Language: Albanian Communication Ability: Effective Visual Impairment: No Limitations Hearing Ability: Use of Hearing Aid Receptionist Telephone Operator Required: No Beliefs That Will Affect Care: None marital status: / Current Living Situation: Significant Other Current Living Situation Comment: Tammy Hernandez (Girlfriend) current occupational status: retired 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 HEENT exam is negative. Neck is supple with full carotid upstrokes. No carotid bruits. Jugular is pressure is flat at 90. There is no thyromegaly. Cardiovascular exam reveals a regular rhythm with a normal S1-S2. Heart sounds are distant. No obvious murmurs. Lungs are clear without rales, rhonchi, or wheezes. Abdomen is soft and nontender without bruits. Extremities reveal intact radial artery pulses bilaterally. There is no peripheral edema. Results & Data ([facility]) Vital Signs (Past 12 Hours) Vital Signs Temp Pulse Pulse Resp BP BP Pulse Ox 07/25/21 07:24 36.4 C L 81 18 142/86 H 92 07/25/21 07:05 78 20 92 07/25/21 07:00 36.5 C 74 20 149/88 H 07/25/21 05:30 36.4 C L 81 20 142/86 H 07/25/21 04:30 77 18 141/88 H 96 07/25/21 04:00 82 19 134/81 95 07/25/21 03:30 79 20 134/79 95 07/25/21 03:00 91 H 22 154/90 H 94 07/25/21 02:30 94 H 24 135/95 93 07/25/21 02:00 90 21 129/77 93 07/25/21 01:30 99 H 24 128/78 93 07/25/21 01:10 90 22 96 07/25/21 01:09 36.9 C 101 H 18 128/94 95 07/25/21 01:00 102 H 21 149/85 H 100 Laboratory Results CBC notes hemoglobin 14.0, hematocrit 42.4, white count 10.4, the platelet count [id number]. Electrolytes note a sodium 140, potassium 4.1, chloride 110, bicarb 29, BUN 23, creatinine 1.02, and glucose of 123. Initial troponin was 0.175 with a follow-up value of 1.04. BNP was normal at 412. Diagnostic Findings EKG notes sinus tachycardia with a complete right bundle branch block. Chest x- ray shows no acute disease. PG Care Time/CCT Total # of Minutes Spent Total Time Spent with Patient: Total time spent is greater than 50% in coordination of care (as documented) at patient's floor/unit and/or counseling patient: Coding Level of Care Code 61257 Initial Inpt Care Lvl 3 Diagnoses Dyspnea R06.00 Elevated troponin R77.8 CAD (coronary artery disease) I25.10 Coronary Disease-Associated Artery/Lesion type: [place] artery [place] vs. transplanted heart: [place] heart Associated angina: without angina Hypercholesterolemia E78.00 (1) CAD (coronary artery disease) Coronary Disease-Associated Artery/Lesion type: [place] artery [place] vs. transplanted heart: [place] heart Associated angina: without angina Qualified Code(s): I25.10 - Atherosclerotic heart disease of [place] coronary artery without angina pectoris
[2021-07-25 12:51] LABS: Partial Thromboplastin Ratio 3.6
[2021-07-25 12:58] LABS: Partial Thromboplastin Time 94.9 Seconds (21.0-31.0)
--- NOTE | 2021-07-25 13:26 | XCELERA ---
[id number] \\[id number]
--- NOTE | 2021-07-25 13:49 | Electrocardiogram Report ---
Test Reason : Blood Pressure : / mmHG Vent. Rate : 087 BPM Atrial Rate : 087 BPM P-R Int : 218 ms QRS Dur : 160 ms QT Int : 430 ms P-R-T Axes : 024 098 047 degrees QTc Int : 517 ms Sinus rhythm with 1st degree A-V block Right bundle branch block Abnormal ECG When compared with ECG of 25-JUL-2021 00:53, No significant change Confirmed by Harvinder El ([id number]) on 07/25/2021 1:49:43 PM Referred By: REFERRED SELF Confirmed By:Harvinder El
--- NOTE | 2021-07-25 13:52 | Electrocardiogram Report ---
Test Reason : Blood Pressure : / mmHG Vent. Rate : 101 BPM Atrial Rate : 101 BPM P-R Int : 000 ms QRS Dur : 158 ms QT Int : 398 ms P-R-T Axes : 000 101 022 degrees QTc Int : 516 ms Probable Sinus rhythm Right bundle branch block Abnormal ECG When compared with ECG of 20-APR-2020 13:01, HR has increased 16 bpm Otherwise no significant change Confirmed by Harvinder El ([id number]) on 07/25/2021 1:51:42 PM Referred By: REFERRED SELF Confirmed By:Harvinder El
[2021-07-25] MEDS ORDERED: OPTIRAY 320 125ml IV ONE (16:43)
--- NOTE | 2021-07-25 17:05 | CT Scan Report ---
CT ANGIOGRAPHY OF THE CHEST, PULMONARY EMBOLUS PROTOCOL CLINICAL HISTORY: Severe shortness of breath. COMPARISON STUDY: Chest CT February 18, 2020. Chest radiograph performed earlier today. TECHNIQUE: Following IV administration of 117 mL of Optiray, helical axial images of the chest were o btained utilizing the pulmonary embolus protocol. Maximal intensity projections and sagittal and cor onal reformats were viewed on an independent 3D workstation. IV contrast was administered without co mplication. Automated exposure control was utilized for the study. A dose lowering technique was ut ilized adhering to the principles of ALARA. CT DOSE: 722.58 mGy.cm FINDINGS: No pulmonary emboli are identified although this exam is mildly compromised by respiratory motion. There is no thoracic aortic dissection. No enlarged thoracic lymph nodes are noted. Central airways are patent. There is no consolidation to suggest pneumonia. There is mild bronchial wall thic kening. No pneumothorax or pleural effusion is noted. No acute fracture or suspicious lesion is ident ified within visualized portions of the bony thorax. Visualized portions of the upper abdomen are unr emarkable. IMPRESSION: 1. No pulmonary emboli identified. Exam mildly compromised by respiratory motion artifact. 2. No acute process within the chest. ACT 112: Negative or not required by law. Electronically signed by: Del Soler M.D. 07/25/2021 5:04 PM
[2021-07-25] MEDS: ATORVASTATIN 40 MG TAB PO SCH (20:22)
[2021-07-25] MEDS: CITALOPRAM 20 MG TAB PO SCH (20:22)
[2021-07-25 21:04] LABS: Partial Thromboplastin Ratio 2.5; Partial Thromboplastin Time 66.4 Seconds (21.0-31.0)
[2021-07-26] MEDS: HEPARIN SODIUM/DEXTROSE 25,000 UNITS/500 ML BAG IV SCH ×2 (00:36→08:36)
--- NOTE | 2021-07-26 02:22 | Communication Note ---
Date of Service: July 26, 2021 Subjective: Nursing notified that the patient had an elevated troponin return at midnight. Patient was sleeping comfortably in his bed without his oxygen on. Patient denies current chest pain or shortness of breath. Objective - A/P: 75 yo M w/ shortness of breath and elevated troponin up trending from 0.9 - 1.4 - EKG: similar to prior - Continue Heparin drip
[2021-07-26] MEDS: ALBUT/IPRATROP 3MG/0.5MG NEB 3 ML VIAL NEB SCH ×6 (03:16→22:30)
[2021-07-26 07:30] LABS: Basophils # (auto) 0.01 K/uL (0-0.2); Basophils % (auto) 0.1 %; Eosinophils # (auto) 0.24 K/uL (0-0.5); Hematocrit (blood only) 39.8 % (42-52); Hemoglobin 13.1 g/dL (14.0-18.0); Immature Granulocytes # (auto) 0.01 K/uL (0.00-0.02); Immature Granulocytes % (auto) 0.1 %; Lymphocytes # (auto) 2.18 K/uL (1.2-3.4); Lymphocytes % (auto) 18.4 %; Mean Corpuscular Hemoglobin 28.9 pg (25-34); Mean Corpuscular Hgb Conc 32.9 g/dL (32-36); Mean Corpuscular Volume 87.7 fL (80-100); Mean Platelet Volume 10.1 fL (7.4-10.4); Monocytes # (auto) 1.06 K/uL (0.11-0.59); Monocytes % (auto) 8.9 %; Neutrophils # (auto) 8.36 K/uL (1.4-6.5); Neutrophils % (auto) 70.5 %; Platelet Count 240 K/uL (130-400); RDW Coefficient of Variation 13.6 % (11.5-14.5); RDW Standard Deviation 43.8 fL (36.4-46.3); Red Blood Count 4.54 M/uL (4.7-6.1); White Blood Count 11.86 K/uL (4.8-10.8)
[2021-07-26 07:49] LABS: Partial Thromboplastin Ratio 4.9
--- NOTE | 2021-07-26 08:05 | Electrocardiogram Report ---
Test Reason : Blood Pressure : / mmHG Vent. Rate : 070 BPM Atrial Rate : 070 BPM P-R Int : 222 ms QRS Dur : 146 ms QT Int : 496 ms P-R-T Axes : 090 084 062 degrees QTc Int : 535 ms Sinus rhythm with 1st degree A-V block with frequent Premature ventricular complexes Right bundle branch block Abnormal ECG When compared with ECG of 25-JUL-2021 11:21, Premature ventricular complexes are now Present Confirmed by Harvinder El ([id number]) on 07/26/2021 8:05:10 AM Referred By: REFERRED SELF Confirmed By:Harvinder El
[2021-07-26 08:08] LABS: BUN Creatinine Ratio 23.3 (10-20); Calcium 8.6 mg/dl (8.5-10.1); Creatinine Clr Calc Pharmacy 81.4 ml/min; Est GFR (African American) 89.3 ml/min; Potassium 3.3 mmol/L (3.5-5.1)
[2021-07-26 08:10] LABS: Partial Thromboplastin Time 128.7 Seconds (21.0-31.0)
[2021-07-26] MEDS: UMECLIDINIUM/VILANTEROL 62.5/25MCG 7 PUFFS/INHALER INH SCH (08:19)
[2021-07-26] MEDS: FAMOTIDINE 20 MG in SYRINGE 3 ML IV SCH ×2 (08:19→20:32)
[2021-07-26] MEDS: FLUTICASONE FUROATE 100MCG 14 PUFFS/INHALER INH SCH (08:19)
[2021-07-26] MEDS: ASPIRIN 81 MG CHEW PO SCH (08:20)
--- NOTE | 2021-07-26 13:06 | Cardiology Progress Note ---
Date of Service July 26, 2021 Assessment & Plan (1) Dyspnea: Plan: -fortunately, symptoms have resolved. -CT scan of the chest without evidence of pulmonary embolism. -echocardiogram unremarkable. -patient improved on CPAP mask at night, according to his report. (2) Elevated troponin: Plan: -mild elevation is noted. -does not represent an acute coronary syndrome. (3) CAD (coronary artery disease): Plan: -RCA stent at time of an inferior [place] in 2009. -continue medical management. (4) Hypercholesterolemia: Plan: -continue atorvastatin. Admission and Anticipated Discharge Date Admission Date: July 25, 2021 Subjective The patient is resting comfortably in bed without complaints of chest pain or dyspnea. He is anxious for hospital discharge. Physical Exam Physical Exam: In general is well-developed well-nourished white male in no acute distress. HEENT exam is negative. Neck is supple with full carotid upstrokes. No carotid bruits. Jugular is pressure is flat at 90. There is no thyromegaly. Cardiovascular exam reveals a regular rhythm with a normal S1-S2. Heart sounds are distant. No obvious murmurs. Lungs are clear without rales, rhonchi, or wheezes. Abdomen is soft and nontender without bruits. Extremities reveal intact radial artery pulses bilaterally. There is no peripheral edema. Results & Data ([facility]) Vital Signs (Past 12 Hours) Vital Signs Temp Pulse Pulse Resp BP Pulse Ox 07/26/21 11:43 36.5 C 55 L 20 136/69 95 07/26/21 10:56 62 18 97 07/26/21 09:31 57 L 07/26/21 07:39 36.6 C 85 20 150/76 H 95 07/26/21 07:12 60 22 98 07/26/21 03:13 17 93 07/26/21 03:00 36.6 C 60 20 119/68 98 07/26/21 01:26 77 Diagnostic Findings tube rebuilder notes sinus rhythm with occasional PVCs. PG Care Time/CCT Total # of Minutes Spent Total Time Spent with Patient: Total time spent is greater than 50% in coordination of care (as documented) at patient's floor/unit and/or counseling patient: Coding Level of Care Code 41061 Subseq Hosp Care Lvl 3 Diagnoses Dyspnea R06.00 Elevated troponin R77.8 CAD (coronary artery disease) I25.10 Coronary Disease-Associated Artery/Lesion type: [place] artery [place] vs. transplanted heart: [place] heart Associated angina: without angina Hypercholesterolemia E78.00 (1) CAD (coronary artery disease) Coronary Disease-Associated Artery/Lesion type: [place] artery [place] vs. transplanted heart: [place] heart Associated angina: without angina Qualified Code(s): I25.10 - Atherosclerotic heart disease of [place] coronary artery without angina pectoris
[2021-07-26 16:51] LABS: Partial Thromboplastin Ratio 1.2; Partial Thromboplastin Time 30.5 Seconds (21.0-31.0)
--- NOTE | 2021-07-26 18:40 | Hospitalist Progress Note ---
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 (1) Elevated troponin: - With episode of SOB at home. Pulse ox on admit 100% RA -Heparin started [id number] at 63970F/hr, APPT 94.9, due to elevated aPPT decreased to 1050U/hr -Troponin on admit 0.175, max 1.04 07/25 downtrending, max 1.42 07/26 post SOB downtrending -Echo 07/25 EF 65-70%, mild concentric LVH, Grade I diastolic dysfunction -Telemetry monitoring -Chest CT angiogram 07/25 negative for PE -Cardiology consulted, recommend continued medical management, not concerned for acute coronary syndrome. Troponin elevation likely from demand ischemia -Continue statin, ASA (2) Dysphagia -patient has mod/severe dysphagia since CVA 2019, last evaluated by speech therapy June 2021 -per speech therapy note, patient can tolerate honey thick liquids and small bites. -low suspicion for aspiration pneumonia given WBC 10.42, however home aspiration event still possible (3) COPD (chronic obstructive pulmonary disease): -Chronic, no home oxygen -no wheeze on PE -continue Duoneb, Albuterol as needed -tolerated CPAP well, states slept better afterwards (5) Dyspnea: -Episode of dyspnea and diaphoresis at home. One episode SOB in hospital. Currently resolved -Pulse ox currently 93% RA, no complaints SOB -CXR no acute findings -suspect cardiac, COPD, or aspiration etiology, see above (6) Hypertension: -continue to monitor (7) PAF (paroxysmal atrial fibrillation): -continue heparin -continue telemetry (8) Hypercholesterolemia: -Continue Atorvastatin (9)GERD -continue Protonix (10)Depression -continue Citalopram FENa: honey thick liquids minced diet Code Status: Full DVT PPX: heparin PT/OT: ordered Case Management: [] Dispo: home Zabrina Harris Do PGY 1, FCM (2) Elevated troponin: (3) COPD (chronic obstructive pulmonary disease): (4) Dysphagia: (5) PAF (paroxysmal atrial fibrillation): (6) Hypercholesterolemia: (7) Hypertension: Admission and Anticipated Discharge Date Admission Date: July 25, 2021 Supervising Physician Co-Signing Physician Notes Resident Physician Supervision Note: I independently interviewed and examined the patient and verified the henry history and physical, reviewed labs and image studies and agree with resident Dr. Harris findings and care plan. 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 Last night he had an episode of SOB similar to his admission that resolved on its own, troponin 6hr later were elevated to 1.4. Patient seen at bedside resting comfortably no acute complaints, states the CPAP worked very well and that his home CPAP had broken 2 year ago. Telemetry shows sinus PVCs Review of Systems Review of Systems: Negative fever chills Negative headache dizziness Negative chest pain palpitations SOB Negative nausea vomitting diarrhea constipation Negative numbness tingling rash swelling Physical Exam Physical Exam: General: Well appearing, age appropriate Heart: RRR, +S1 S2, no murmurs/gallops/rubs Lungs: cta b/l, no wheezes/rales/rhonchi, mild conversational dyspnea Abd: soft, NT/ND, +BS Extremities: no swelling, no rashes Results & Data Results & Data ([facility]) Vital Signs (Past 12 Hours) Vital Signs Temp Pulse Pulse Resp BP BP Pulse Ox 07/26/21 17:00 80 07/26/21 15:50 36.6 C 81 20 128/75 93 07/26/21 15:18 69 18 97 07/26/21 14:09 07/26/21 11:43 36.5 C 55 L 20 136/69 95 07/26/21 10:56 62 18 97 07/26/21 09:31 57 L 07/26/21 07:39 36.6 C 85 20 150/76 H 95 07/26/21 07:12 60 22 98 Pulse Ox 07/26/21 17:00 07/26/21 15:50 07/26/21 15:18 07/26/21 14:09 96 07/26/21 11:43 07/26/21 10:56 07/26/21 09:31 07/26/21 07:39 09/22/21 07:12 Laboratory Results 07/26/21 07/26/21 07/26/21 Range/Units 16:31 12:44 06:50 WBC (4.8-10.8) K/uL RBC (4.7-6.1) M/uL Hgb (14.0-18.0) g/dL Hct (42-52) % MCV (80-100) fL MCH (25-34) pg MCHC (32-36) g/dL RDW Std Deviation (36.4-46.3) fL RDW Coeff of [place] (11.5-14.5) % Plt Count (130-400) K/uL MPV (7.4-10.4) fL Immature Gran % (Auto) % Neut % (Auto) % Lymph % (Auto) % [place] % (Auto) % Eos % (Auto) % Baso % (Auto) % Neut # (Auto) (1.4-6.5) K/uL Lymph # (Auto) (1.2-3.4) K/uL [place] # (Auto) (0.11-0.59) K/uL Eos # (Auto) (0-0.5) K/uL Baso # (Auto) (0-0.2) K/uL Immature Gran # (Auto) (0.00-0.02) K/uL APTT 30.5 128.7 H* (21.0-31.0) Seconds PTT Ratio 1.2 4.9 Sodium (136-145) mmol/L Potassium (3.5-5.1) mmol/L Chloride (98-107) mmol/L Carbon Dioxide (21-32) mmol/L Anion Gap (3-11) BUN (7-18) mg/dl Creatinine (0.6-1.4) mg/dl Est Cr Clr Drug Dosing ml/min Est GFR ( Amer) ml/min Est GFR (Non-Af Amer) ml/min BUN/Creatinine Ratio (10-20) Glucose (70-99) mg/dl Calcium (8.5-10.1) mg/dl Troponin I 0.882 H* (0-0.045) ng/ml 07/26/21 07/26/21 07/26/21 Range/Units 06:50 06:50 00:34 WBC 11.86 H (4.8-10.8) K/uL RBC 4.54 L (4.7-6.1) M/uL Hgb 13.1 L (14.0-18.0) g/dL Hct 39.8 L (42-52) % MCV 87.7 (80-100) fL MCH 28.9 (25-34) pg MCHC 32.9 (32-36) g/dL RDW Std Deviation 43.8 (36.4-46.3) fL RDW Coeff of [place] 13.6 (11.5-14.5) % Plt Count 240 (130-400) K/uL MPV 10.1 (7.4-10.4) fL Immature Gran % (Auto) 0.1 % Neut % (Auto) 70.5 % Lymph % (Auto) 18.4 % [place] % (Auto) 8.9 % Eos % (Auto) 2.0 % Baso % (Auto) 0.1 % Neut # (Auto) 8.36 H (1.4-6.5) K/uL Lymph # (Auto) 2.18 (1.2-3.4) K/uL [place] # (Auto) 1.06 H (0.11-0.59) K/uL Eos # (Auto) 0.24 (0-0.5) K/uL Baso # (Auto) 0.01 (0-0.2) K/uL Immature Gran # (Auto) 0.01 (0.00-0.02) K/uL APTT (21.0-31.0) Seconds PTT Ratio Sodium 143 (136-145) mmol/L Potassium 3.3 L D (3.5-5.1) mmol/L Chloride 108 H (98-107) mmol/L Carbon Dioxide 28 (21-32) mmol/L Anion Gap 7.0 (3-11) BUN 23 H (7-18) mg/dl Creatinine 0.96 (0.6-1.4) mg/dl Est Cr Clr Drug Dosing 81.4 ml/min Est GFR ( Amer) 89.3 ml/min Est GFR (Non-Af Amer) 77.0 ml/min BUN/Creatinine Ratio 23.3 H (10-20) Glucose 124 H (70-99) mg/dl Calcium 8.6 (8.5-10.1) mg/dl Troponin I 1.420 H* (0-0.045) ng/ml 07/25/21 Range/Units 18:58 WBC (4.8-10.8) K/uL RBC (4.7-6.1) M/uL Hgb (14.0-18.0) g/dL Hct (42-52) % MCV (80-100) fL MCH (25-34) pg MCHC (32-36) g/dL RDW Std Deviation (36.4-46.3) fL RDW Coeff of [place] (11.5-14.5) % Plt Count (130-400) K/uL MPV (7.4-10.4) fL Immature Gran % (Auto) % Neut % (Auto) % Lymph % (Auto) % [place] % (Auto) % Eos % (Auto) % Baso % (Auto) % Neut # (Auto) (1.4-6.5) K/uL Lymph # (Auto) (1.2-3.4) K/uL [place] # (Auto) (0.11-0.59) K/uL Eos # (Auto) (0-0.5) K/uL Baso # (Auto) (0-0.2) K/uL Immature Gran # (Auto) (0.00-0.02) K/uL APTT 66.4 H* (21.0-31.0) Seconds PTT Ratio 2.5 Sodium (136-145) mmol/L Potassium (3.5-5.1) mmol/L Chloride (98-107) mmol/L Carbon Dioxide (21-32) mmol/L Anion Gap (3-11) BUN (7-18) mg/dl Creatinine (0.6-1.4) mg/dl Est Cr Clr Drug Dosing ml/min Est GFR ( Amer) ml/min Est GFR (Non-Af Amer) ml/min BUN/Creatinine Ratio (10-20) Glucose (70-99) mg/dl Calcium (8.5-10.1) mg/dl Troponin I (0-0.045) ng/ml Medications Administered Current Inpatient Medications Acetaminophen (Acetaminophen 325 Mg Tab) 650 mg PO Q4H PRN PRN Reason: pain/fever Stop: 08/24/21 05:29 Albuterol (Albut/Ipratrop 3mg/0.5mg Neb 3 Ml Vial) 3 ml NEB Q4R ADLOFO Stop: 08/24/21 06:59 Last Admin: 07/26/21 15:17 Dose: 3 ml Documented by: Albuterol (Albuterol 0.5% Neb Soln 2.5 Mg/0.5 Ml Vial) 2.5 mg NEB Q2H PRN PRN Reason: SOB/Wheeze Stop: 08/24/21 05:29 Aspirin (Aspirin 81 Mg Chew) 81 mg PO DAILY ADOLFO Stop: 08/24/21 08:59 Last Admin: 07/26/21 08:20 Dose: 81 mg Documented by: Atorvastatin Calcium (Atorvastatin 40 Mg Tab) 40 mg PO HS AODLFO Stop: 08/24/21 20:59 Last Admin: 07/25/21 20:22 Dose: 40 mg Documented by: Citalopram Hydrobromide (Citalopram 20 Mg Tab) 20 mg PO HS ADOLFO Stop: 08/24/21 20:59 Last Admin: 07/25/21 20:22 Dose: 20 mg Documented by: Fluticasone Furoate (Fluticasone Furoate 100mcg 14 Puffs/Inhaler) 1 puffs INH QAM ADOLFO Stop: 08/24/21 08:59 Last Admin: 07/26/21 08:19 Dose: 1 puffs Documented by: Famotidine 20 mg/ Syringe 5 mls @ 2.5 mls/min IV BID ADOLFO Stop: 08/24/21 08:59 Last Admin: 07/26/21 08:19 Dose: 2.5 mls/min Documented by: Ondansetron HCl (Ondansetron Inj 2 Mg/Ml 2 Ml Vial) 4 mg IV Q6H PRN PRN Reason: Nausea Stop: 08/24/21 05:29 Rivaroxaban (Rivaroxaban 20 Mg Tab) 20 mg PO QAM ADOLFO Stop: 08/26/21 08:59 Tramadol HCl (Tramadol Hcl 50 Mg Tablet) 50 mg PO Q6H PRN PRN Reason: Pain Stop: 08/24/21 05:29 Umeclidinium/Vilanterol (Umeclidinium/Vilanterol 62.5/25mcg 7 Puffs/Inhaler) 1 puffs INH DAILY ADOLFO Stop: 08/24/21 08:59 Last Admin: 07/26/21 08:19 Dose: 1 puffs Documented by: Resident Activity Tracking Resident Involvement: Resident Care Provided Care Provided: Adult Hospital Medicine
[2021-07-26] MEDS: ATORVASTATIN 40 MG TAB PO SCH (20:32)
[2021-07-26] MEDS: CITALOPRAM 20 MG TAB PO SCH (20:32)
[2021-07-27] MEDS: ALBUT/IPRATROP 3MG/0.5MG NEB 3 ML VIAL NEB SCH ×2 (03:25→07:12)
[2021-07-27 06:48] LABS: Hematocrit (blood only) 39.9 % (42-52); Hemoglobin 13.1 g/dL (14.0-18.0); Mean Corpuscular Hemoglobin 28.9 pg (25-34); Mean Corpuscular Hgb Conc 32.8 g/dL (32-36); Mean Corpuscular Volume 88.1 fL (80-100); Mean Platelet Volume 9.9 fL (7.4-10.4); Platelet Count 215 K/uL (130-400); RDW Coefficient of Variation 13.5 % (11.5-14.5); RDW Standard Deviation 43.7 fL (36.4-46.3); Red Blood Count 4.53 M/uL (4.7-6.1); White Blood Count 7.82 K/uL (4.8-10.8)
[2021-07-27 07:19] LABS: BUN Creatinine Ratio 24.1 (10-20); Calcium 8.6 mg/dl (8.5-10.1); Est GFR (African American) 78.3 ml/min; Est GFR (Non-African American) 67.5 ml/min; Potassium 3.4 mmol/L (3.5-5.1)
[2021-07-27] MEDS: ASPIRIN 81 MG CHEW PO SCH (07:54)
[2021-07-27] MEDS: FAMOTIDINE 20 MG in SYRINGE 3 ML IV SCH (07:54)
[2021-07-27] MEDS: UMECLIDINIUM/VILANTEROL 62.5/25MCG 7 PUFFS/INHALER INH SCH (07:55)
[2021-07-27] MEDS: FLUTICASONE FUROATE 100MCG 14 PUFFS/INHALER INH SCH (07:55)
[2021-07-27] MEDS ORDERED: RIVAROXABAN 20 MG TAB PO SCH (09:00)
--- NOTE | 2021-07-27 11:17 | Discharge Summary ---
Date of Service July 27, 2021 Admission HPI Per Admitting Provider Kei Lassiter is a 75-year-old male with history of coronary artery disease status post stent placement to the RCA in April 2010, mild COPD, hypertension, paroxysmal atrial fibrillation and prior PE presently on anticoagulation with rivaroxaban. Patient presenting with acute episode of shortness of breath, diaphoresis and mild elevation in troponin of 0.175. Per , patient went to bed around 2100 and fell asleep right away. He woke shortly after gasping for air and markedly diaphoretic. states she checked his pulse ox shortly after and it was found to be 92%. Patient denies chest pain or pressure, palpitations, fever, chills, cough. Presently he is feeling well. states that yesterday he had an episode of myoclonic jerking. He also endorses episodic dizziness as well as cramping in his legs and 2 days of wheezing. has been giving him albuterol every 4 hours over the last 2 days. Admission Exam Per Admitting Provider General: patient resting comfortably, NAD, non-toxic in appearance, AA&O x 4 Skin: warm, dry, intact, no rashes or lesions HEENT: NC/AT, PERRL, EOMI, anicteric sclera, conjunctiva without injection, external ear normal to inspection and nontender, nares patent, moist mucus membranes, dentition intact, no oropharyngeal lesions, neck supple, trachea midline, no LAD, no thyromegaly, no JVD Heart: +S1/S2, regular, no m/r/g Lungs: equal air entry bilaterally, no rales/rhonchi, diminished air flow with scattered end-expiratory wheezing Abd: +BS, soft, NT/ND, no masses/organomegaly/ascites Ext: warm, 2+ pulses in UE/LE bilaterally, no clubbing/cyanosis or edema Neuro: nonfocal, patient AA&O x 4, speech intact, no facial droop, moving all extremities on command with equal strength 5/5 Principal Diagnosis Shortness of Breath Discharge Exam General: Well appearing, age appropriate Heart: RRR, +S1 S2, no murmurs/gallops/rubs Lungs: cta b/l, no wheezes/rales/rhonchi Abd: soft, NT/ND, +BS Extremities: no swelling, no rashes Discharge Data Allergies Allergy/AdvReac Type Severity Reaction Status Date / Time fluticasone Allergy Mild Hives Verified 07/25/21 01:25 salmeterol Allergy Mild Hives Verified 07/25/21 01:25 Consultations 07/25/21 05:30 Consult Cardiology Routine Ordered Studies 07/25/21 14:36 CT angio chest PE protocol Stat Hospital Course (1) Dyspnea: 75yo Male PMH COPD 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 (1) Dyspnea: Episode of dyspnea and diaphoresis at home. One episode SOB in hospital, no changes on telemetry or increased O2 requirement resolved on its own with slight increase in troponin. CXR no acute findings. Dyspnea currently resolved. Uncertain exact etiology, suspect possible cardiac, COPD, or aspiration etiology, see below. Due to comorbid conditions, patient may also benefit from a palliataice care/goals of care discussion with their PCP. (2) Dysphagia Patient has mod/severe dysphagia since CVA 2019, last evaluated by speech therapy June 2021. Per speech therapy note, patient can tolerate honey thick liquids and small bites. Low suspicion for aspiration pneumonia given WBC 10.42, however home aspiration event still possible. Patient would benefit from supervision while swallowing. (3) COPD (chronic obstructive pulmonary disease): Chronic, no home oxygen, no wheeze on PE. Patient has CPAP at home but has not used in 2 years, tolerated CPAP well overnight, states slept and breathed better afterwards. Patient should continue Duoneb, Albuterol as needed, would benefit from using CPAP at home. (4) Elevated troponin: With episode of SOB at home. Pulse ox on admit 100% RA. Placed on Heparin in ED. Troponin on admit elevated 0.175, max 1.04 07/25 downtrending, patient had another episode SOB in hospital trop recheck max 1.42 07/26 downtrending. Echo 07/25 EF 65-70%, mild concentric LVH, Grade I diastolic dysfunction. Chest CT angiogram 07/25 negative for PE. Cardiology consulted, recommend continued medical management, not concerned for acute coronary syndrome. Patient is to continue statin, ASA. 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 (6) Hypertension: Continue to monitor. (7) PAF (paroxysmal atrial fibrillation): Continue Xarelto (8) Hypercholesterolemia: Continue Atorvastatin (9)GERD Continue Protonix (10)Depression Continue Citalopram (2) Elevated troponin: (3) COPD (chronic obstructive pulmonary disease): (4) Dysphagia: (5) PAF (paroxysmal atrial fibrillation): (6) Hypercholesterolemia: (7) Hypertension: Total Time Total Time Spent Total Time Spent (In Minutes): See attending attestation Discharge Plan Discharge Items Patient Disposition: Home - Self-Care Reason For Visit: SHORTNESS OF BREATH Discharge Diagnosis: shortness of breath Activity: Resume your previous activity Non-emergency contact: Primary Care Provider Call non-emergency contact if: your symptoms worsen Follow-up/Referrals: Kimani Meier CRNP [Primary Care Provider] - 07/31/21 8:15 am (Your appointment is with Dr Barakat. If you have any questions or need to change this appoinmtent, please call [phone].) Diet: Heart Healthy Addtl Attending Provider Instructions: Your shortness of breath was most likely secondary to your uncontrolled sleep apnea. This is what caused your sudden chest tightness in the middle of sleep, as well as frequent nighttime awakening and shaking during sleep. This improved with use of a cpap machine overnight. Your primary care provider can help you get a cpap machine or better fitting mask to control and prevent these symptoms going forward. These events can increase your risk of aspirating food, which is when it goes into your lungs instead of your stomach. It is very important you continue to eat a honey-thick liquid diet to ensure that food does not silently go into your lungs, and goes to your stomach where it's supposed to. Follow the directions previously provided to you by your speech therapist. This is particularly important because these episodes have been putting stress on your heart each time they occur. Because of your history of having a stent placed in your coronary artery and the stress placed on your heart by these sleeping events, you were started on a daily 81 mg aspirin that you will need to continue to take. Given your frequent hospitalizations and multiple medical conditions, it is important to discuss with your PCP your goals of care and what is important to you. A consult to Palliative Care was placed while you were in the hospital to help have these conversations but they were unable to see you during your stay. [Palliative Care is NOT the same as Hospice Care. Palliative care aims to optimize how you feel, and improve your QUALITY of life, which is our intention here. Hospice Care is end of life care, which is NOT what we are concerned about at this time.] If you have persistent symptoms of chest pain with activity, chest pain at rest, trouble breathing, or intractable nausea and vomiting, return to the emergency room for evaluation. Pending Studies at Discharge: No Stand-Alone Forms: My [facility] [employer], Smoking Cessation Medications and DC Order Prescriptions: New aspirin [Children's Aspirin] 81 mg Tablet,Chewable 81 mg PO DAILY 30 Days Qty: 30 RF: 0 Continued Xarelto 20 mg tablet 20 mg PO QAM RF: 0 ipratropium-albuterol 0.5 mg-3 mg(2.5 mg base)/3 mL solution for nebulization 3 ml INHALATION Q4H PRN (Reason: Wheezing) Qty: 360 RF: 5 resveratrol 50 mg capsule 50 mg PO QAM RF: 0 albuterol sulfate 90 mcg/actuation HFA aerosol inhaler 2 puff INHALATION Q4H PRN (Reason: Shortness Of Breath) Qty: 18 RF: 5 acetaminophen [Tylenol Arthritis Pain] 650 mg Tablet Extended Release 650 mg PO Q8H PRN (Reason: Fever) RF: 0 3 Fiber Force 6 1 dose PO QAM RF: 0 atorvastatin 40 mg Tablet 40 mg PO HS RF: 0 omega-3 fatty acids-fish oil 360-1,200 mg Capsule 1 cap PO BID RF: 0 coQ10 (ubiquinol) 200 mg Capsule 200 mg PO QAM RF: 0 omeprazole 40 mg capsule,delayed release(DR/EC) 40 mg PO DAILYBB RF: 0 tramadol 50 mg tablet 50 mg PO Q6H PRN (Reason: Pain) RF: 0 citalopram 20 mg tablet 20 mg PO HS RF: 0 cholecalciferol (vitamin D3) 125 mcg (5,000 unit) capsule 125 mcg PO QAM RF: 0 Trelegy Ellipta 100-62.5-25 mcg blister with device 1 inh inhalation QAM RF: 0 Discharge Orders: Discharge Order (Routine); Ordered 07/27/21 Ordered By: Sis García Admission Data Admit Date/Time: 07/25/21 03:19 Attending Provider: Sherlyn Tam Admit Provider: Trish Andrea Primary Care Provider: Kimani Meier Other Providers: Chris Stewart ; Bernard Salazar Other Interventions: Discharge Summary Assessment (RN) Last Done: 07/27/21 09:07 Resident Activity Tracking Resident Involvement: Resident Care Provided Care Provided: Adult [facility] Medicine
--- NOTE | 2021-08-02 17:23 | Coding Query ---
CODING QUERY To promote full compliance with coding requirements relating to patient care, provider participation is requested in all cases of vulcanizing press operator uncertainty. Please assist us with the question(s) below: Coding Question(s): Patient admitted with shortness of breath. One episode at home , one episode in the Hospital. CXR -normal. Progress note stated possible cardiac, Copd or aspiration. Please document, if possible or suspected, the etiology/diagnosis for shortness of breath. Thank you. Keith Carlos, [facility] Physician's Response(s): Shortness of breath secondary to possible aspiration. Principal Diagnosis: "that condition established after study, to be chiefly responsible for occasioning the admission of the patient to the hospital for care." Co-Existing Principal Diagnosis: "when two or more diagnoses equally meet the criteria for principal diagnosis as determined by the circumstances of admission, diagnostic work up, and/or therapy provided, and the Alphabetic Index, Tabular List, or another coding guideline does not provide sequencing direction, any one of the diagnoses may be sequenced first." "When the physician has documented what appears to be a current diagnosis in the body of the record, but has not included the diagnosis in the final diagnostic statement, the physician should be asked whether the diagnosis should be added." (Source Coding Clinic 2 QTR90. p3-4) CRISTIANE
== END 2021-07-27 10:16 | disposition home health service (06) | DRG 206 ==
LOC: ED 00:47 → 2N 03:19 → SUATTDRO 03:19 → 2N 05:17

== ENCOUNTER 2021-08-01 13:13 | Observation (INO) ==
--- NOTE | 2021-08-01 13:17 | Emergency Department Note ---
Impression & Plan Acute respiratory failure with hypoxia, COPD exacerbation, HEYDI (obstructive sleep apnea) ED Provider Note NAME: RADHA CANCINO AGE: 75 SEX: M ARRIVES VIA: Ambulance INFORMANT: Patient, ED PROVIDER(S): Cuco Ford MD CHIEF COMPLAINT: Shortness of breath. PLAN: Disposition: Admit MEDICAL DECISION MAKING: The patient is a pleasant 75-year-old gentleman with a past medical history of coronary artery disease status post stent placement to the RCA in April 2010, mild COPD, hypertension, paroxysmal atrial fibrillation and prior PE on Xarelto, HEYDI who presents to the emergency department with worsening SOB over the past 48 hours and in particular last night. Per records, the patient was admitted to the hospital on 07/25 for dyspnea and elevated troponins. Upon discharge, dyspnea improved and troponin downtrended. Patient had one episode of shortness of breath since discharge which improved with albuterol inhaler. Last night he woke up during the night with shortness of breath without improvement with inhaler. Sitting on the edge of the bed made him feel a little better. At the time he found his oxygen saturation to be 88%. He was seen by PCP office this morning who felt he should go to the ED for increased shortness of breath and the patient's low oxygen saturation readings, O2 sat at the office was 93%. Patient currently has shortness of breath and difficulty breathing. Denies chest pain, fevers, chills, nausea, vomiting, changes in strength or sensation. Of note, the patient reports he has not been using his CPAP at night as he feels is not working. On arrival the patient is uncomfortable with mild increased work of breathing with mild respiratory distress, afebrile with heart rate in the 90s and O2 saturation 93% with respiratory rate in the upper 20s. On exam the patient appears euvolemic. EKG without overt acute ischemia. CXR negative for acute cardiopulmonary process. WBC 11.7K, nonspecific. H/H similar prior. Platelets wnl. Chemistry without acidosis. Electrolytes unremarkable. LFTs without significant abnormality. Troponin 0.025, wnl. BNP wnl. Covid-19 PCR negative. Patient was treated with steroids and duoneb but did develop worsening WOB and required Bipap for acute respiratory failure. Patient agrees with plan for admission. Case was discussed with Dr. Queen, [facility] [place], who will evaluate the patient for admission. This patient was managed with the assistance of resident, Dr. Light. I discussed the case with the resident, examined the patient, and confirm the findings and plan as documented in this note. Triage Nursing notes reviewed and agree them. Prior medical records reviewed Vital Signs: reviewed and remarkable for tachypnea, low O2 saturation. Differential diagnosis: Reactive airway disease, pneumonia, pneumothorax, COPD, CHF, infections, cardiac ischemia, pulmonary embolism, musculoskeletal, gastrointestinal, as well as other pathologies. ER treatment provided: See below. Diagnostics interpreted by me: ECG: Sinus rhythm with frequent Premature ventricular complexes, 93 bpm, Right bundle branch block, TWI, no overt ST elevation or depression. Cardiac Monitoring: An order for continuous cardiac monitoring was placed and demonstrated Sinus rhythm with frequent Premature ventricular complexes, 93 bpm. Laboratory studies: See below Imaging studies: See below Consultation(s): Case was discussed with Dr. Queen, [facility] [place], who will evaluate the patient for admission. HPI: The patient is a pleasant 75-year-old gentleman with a past medical history of coronary artery disease status post stent placement to the RCA in April 2010, mild COPD, hypertension, paroxysmal atrial fibrillation and prior PE on Xarelto, HEYDI who presents to the emergency department with worsening SOB over the past 48 hours and in particular last night. Per records, the patient was admitted to the hospital on 07/25 for dyspnea and elevated troponins. Upon discharge, dyspnea improved and troponin downtrended. Patient had one episode of shortness of breath since discharge which improved with albuterol inhaler. Last night he woke up during the night with shortness of breath without improvement with inhaler. Sitting on the edge of the bed made him feel a little better. At the time he found his oxygen saturation to be 88%. He was seen by PCP office this morning who felt he should go to the ED for increased shortness of breath and the patient's low oxygen saturation readings, O2 sat at the office was 93%. Patient currently has shortness of breath and difficulty breathing. Denies chest pain, fevers, chills, nausea, vomiting, changes in strength or sensation. Of note, the patient reports he has not been using his CPAP at night as he feels is not working. ROS: See above HPI for pertinent positives & negatives. A total of 10 systems reviewed and were otherwise negative. PAST MEDICAL HISTORY:See Below PAST SURGICAL HISTORY:See Below FAMILY HISTORY:See Below SOCIAL HISTORY:See Below HOME MEDICATIONS:See Below ALLERGIES:See Below VITALS:See Below PHYSICAL EXAMINATION: GENERAL: Awake, alert, dyspneic-appearing, mild respiratory distress HENT: Normocephalic, atraumatic. Oropharynx with dry mucous membranes and otherwise unremarkable. EYES: Normal conjunctiva. Sclera non-icteric. NECK: Supple. No nuchal rigidity. FROM. No JVD. RESPIRATORY: Diffuse wheezes with prolonged expiratory phase. Mild-moderate increased work of breathing. CARDIAC: Regular rate, normal rhythm. Extremities warm and well perfused. Pulses equal. ABDOMEN: Soft, non-distended. No tenderness to palpation. No rebound or guarding. No masses. RECTAL: Deferred. MUSCULOSKELETAL: Chest examination reveals no tenderness. The back is symmetrical on inspection without obvious abnormality. There is no CVA tenderness to palpation. No joint edema. LOWER EXTREMITIES: Calves are equal size bilaterally and non-tender. 1+ BLE edema. No discoloration. NEURO: Normal sensorium. No sensory or motor deficits noted. SKIN: No rash or jaundice noted. ED COURSE: Critical Care: I have personally spent greater than 45 minutes of critical care time in the direct management of this patient. This includes bedside care, interpretation of diagnostic studies, and testing, discussion with consultants, patient, and family members, and other required patient management activities. This 45 minutes is in excess of all separately billable procedures. Cuco Ford MD Past Med/Surg History Medical History Acute embolic stroke (~02/2020) 12/2019 secondary to afib [facility] Acute ischemic stroke had multiple from testing, 12/2019 was last one will start xarelto after Dr. Elena removes Peg tube Arthritis BPH (benign prostatic hyperplasia) Bronchitis CAD (coronary artery disease) COPD (chronic obstructive pulmonary disease) Diabetes mellitus Elevated PSA Factor VIII inhibitor disorder Dr. 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, including canthus Paroxysmal atrial fibrillation Pulmonary embolism Sleep apnea (~09/2014) 09/14/2014- Urinary incontinence Surgical History H/O knee surgery History of bronchoscopy History of cardiac catheterization (~05/01/10) 05/01/2010-PCI of OM 2 with CAROLINE History of sinus surgery PEG (percutaneous endoscopic gastrostomy) status (~12/2019) placed due to stroke and then had bleeding after PEG tube insertion was sent to [facility] and found weak vessel in small bowel and clamped it had blood transfusion Family History Mother , in her 70s of an ME Heart disease Hypertension Father , in his late 60s of pulmonary issues Emphysema, unspecified Hearing loss Grandfather Stroke Denies family history of Ovarian cancer Prostate cancer Breast cancer Lung cancer Colorectal cancer Cancer Asthma Social History Smoking Status: Former smoker Tobacco Type: Cigarettes Age Started Using Tobacco: 15; Age Quit Using Tobacco: 44; packs per day: 2; Years Smoked: 29; Cigarettes Per Day: 1.5 PPD; Smoking End Date: ; Second Hand Exposure: No; Do You Dip or Chew Tobacco: No; Hx Alcohol Use: No Hx Substance Use: No Preferred Language: Lithuanian Communication Ability: Effective Visual Impairment: No Limitations Hearing Ability: Use of Hearing Aid Hook [employer] 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 Operator Required: No Beliefs That Will Affect Care: None marital status: girlfriend Current Living Situation: Significant Other Current Living Situation Comment: Home w/ significant other, Tammy Hernandez current occupational status: retired 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 [employer] How many Children do You have: 1 Other Information That Helps Us Care for You: No other: Retired age 52 Feels Safe at Home: Yes Safety Concerns: Feels Safe At This Time Diet Comment: regular caffeine: Yes during the past year weight has: remained stable Dental Care, Regularly: Yes Physical Activity Frequency: Does not Exercise Seatbelt Use: always Sunscreen Use: No Assistive Devices: Denture - Lower, Glasses, Hearing Aid - Bilateral and Walker Allergies Allergies Allergy/AdvReac Type Severity Reaction Status Date / Time fluticasone Allergy Mild Hives Verified 08/01/21 10:40 salmeterol Allergy Mild Hives Verified 08/01/21 10:40 Home Meds Home Medications Medication Instructions Recorded Confirmed acetaminophen 650 mg 650 mg PO Q8H PRN 02/18/20 08/01/21 tablet,extended release (Tylenol Arthritis Pain) rivaroxaban 20 mg tablet (Xarelto) 20 mg PO QAM 10/19/20 08/01/21 resveratrol 50 mg capsule 50 mg PO QAM 07/13/21 08/01/21 3 Fiber Force 6 1 dose PO QAM 07/25/21 08/01/21 atorvastatin 40 mg tablet 40 mg PO HS 07/25/21 08/01/21 cholecalciferol (vitamin D3) 125 125 mcg PO QAM 07/25/21 08/01/21 mcg (5,000 unit) capsule citalopram 20 mg tablet 20 mg PO HS 07/25/21 08/01/21 coQ10 (ubiquinol) 200 mg capsule 200 mg PO QAM 07/25/21 08/01/21 fluticasone fur. 100 mcg-umeclid 1 inh INHALATION QAM 07/25/21 08/01/21 62.5 mcg-vilant 25 mcg inhalat.powder (Trelegy Ellipta) omega-3 fatty acids-fish oil 360 1 cap PO BID 07/25/21 08/01/21 mg-1,200 mg capsule omeprazole 40 mg capsule,delayed 40 mg PO DAILYBB 07/25/21 08/01/21 release tramadol 50 mg tablet 50 mg PO Q6H PRN 07/25/21 08/01/21 Previous Rx's Medication Instructions Recorded ipratropium 0.5 mg-albuterol 3 mg 3 ml INHALATION Q4H PRN #360 ml 08/18/20 (2.5 mg base)/3 mL nebulization soln albuterol sulfate 90 mcg/actuation 2 puff INHALATION Q4H PRN #18 g 07/13/21 aerosol inhaler Auto Titrating CPAP #1 ea 08/01/21 CPAP Machine #1 ea 08/02/21 CPAP Supplies #1 ea 08/02/21 Results & Data (ED) Vital Signs Vital Signs - 24 hr 08/01/21 13:31 08/01/21 13:36 08/01/21 14:00 Temperature 36.8 C Temperature Source Oral Pulse Rate 77 75 Pulse Rate [Right Finger] Pulse Rate from SpO2 Sensor 77 75 Pulse Rhythm Regular Pulse Strength Normal Respiratory Rate 24 22 Respiratory Effort / Characteristics Non-Labored Respiratory Depth Normal Respiratory Pattern Regular Blood Pressure 139/91 152/81 H Blood Pressure Mean 107 104 Blood Pressure Position Sitting Pulse Oximetry 98 97 98 Oxygen Delivery Method Room Air Room Air Fraction of Inspired Oxygen Sepsis Recent Fever Within 48 Hours No Sepsis New/Unexplained Change in Mental Status No Sepsis Action Taken by Nursing No Action Required 08/01/21 14:32 08/01/21 14:49 08/01/21 14:50 Temperature Temperature Source Pulse Rate 115 H 96 H Pulse Rate [Right Finger] 96 H Pulse Rate from SpO2 Sensor 115 H Pulse Rhythm Pulse Strength Respiratory Rate 25 H 24 24 Respiratory Effort / Characteristics Spontaneous Labored Retracting Short of Breath Spontaneous Labored Retracting Respiratory Depth Retractive Respiratory Pattern Tachypnea Blood Pressure 183/121 H Blood Pressure Mean 141 Blood Pressure Position Pulse Oximetry 95 99 99 Oxygen Delivery Method BiPAP Fraction of Inspired Oxygen 40 40 Sepsis Recent Fever Within 48 Hours Sepsis New/Unexplained Change in Mental Status Sepsis Action Taken by Nursing 08/01/21 15:00 08/01/21 15:30 08/01/21 16:00 Temperature Temperature Source Pulse Rate 91 H 97 H 112 H Pulse Rate [Right Finger] Pulse Rate from SpO2 Sensor 81 99 H 112 H Pulse Rhythm Pulse Strength Respiratory Rate 24 19 20 Respiratory Effort / Characteristics Respiratory Depth Respiratory Pattern Blood Pressure 163/92 H 159/89 H Blood Pressure Mean 115 112 Blood Pressure Position Pulse Oximetry 99 99 100 Oxygen Delivery Method Fraction of Inspired Oxygen Sepsis Recent Fever Within 48 Hours Sepsis New/Unexplained Change in Mental Status Sepsis Action Taken by Nursing 08/01/21 16:30 08/01/21 17:01 Temperature Temperature Source Pulse Rate 100 H 103 H Pulse Rate [Right Finger] Pulse Rate from SpO2 Sensor 100 H 102 H Pulse Rhythm Pulse Strength Respiratory Rate 19 20 Respiratory Effort / Characteristics Respiratory Depth Respiratory Pattern Blood Pressure 152/85 H Blood Pressure Mean 107 Blood Pressure Position Pulse Oximetry 100 100 Oxygen Delivery Method Fraction of Inspired Oxygen Sepsis Recent Fever Within 48 Hours Sepsis New/Unexplained Change in Mental Status Sepsis Action Taken by Nursing Laboratory Data Attestation: I reviewed the patient's lab results. Result diagrams: 08/02/21 06:42 08/02/21 06:42 Lab Results 08/01/21 08/01/21 08/01/21 Range/Units 13:51 13:51 13:57 WBC 11.73 H (4.8-10.8) K/uL RBC 4.76 (4.7-6.1) M/uL Hgb 13.6 L (14.0-18.0) g/dL Hct 41.7 L (42-52) % MCV 87.6 (80-100) fL MCH 28.6 (25-34) pg MCHC 32.6 (32-36) g/dL RDW Std Deviation 43.9 (36.4-46.3) fL RDW Coeff of [place]lin 13.5 (11.5-14.5) % Plt Count 229 (130-400) K/uL MPV 10.1 (7.4-10.4) fL Immature Gran % (Auto) 0.2 % Neut % (Auto) 63.6 % Lymph % (Auto) 16.7 % Cotton % (Auto) 7.2 % Eos % (Auto) 12.1 % Baso % (Auto) 0.2 % Neut # (Auto) 7.47 H (1.4-6.5) K/uL Lymph # (Auto) 1.96 (1.2-3.4) K/uL Cotton # (Auto) 0.84 H (0.11-0.59) K/uL Eos # (Auto) 1.42 H (0-0.5) K/uL Baso # (Auto) 0.02 (0-0.2) K/uL Immature Gran # (Auto) 0.02 (0.00-0.02) K/uL PT (9.0-12.0) Seconds INR (0.9-1.1) APTT (21.0-31.0) Seconds PTT Ratio Sodium (136-145) mmol/L Potassium (3.5-5.1) mmol/L Chloride (98-107) mmol/L Carbon Dioxide (21-32) mmol/L Anion Gap (3-11) BUN (7-18) mg/dl Creatinine (0.6-1.4) mg/dl Est Cr Clr Drug Dosing ml/min Est GFR ( Amer) ml/min Est GFR (Non-Af Amer) ml/min BUN/Creatinine Ratio (10-20) Glucose (70-99) mg/dl Calcium (8.5-10.1) mg/dl Phosphorus (2.5-4.9) mg/dl Magnesium (1.8-2.4) mg/dl Total Bilirubin (0.2-1) mg/dl Direct Bilirubin (0-0.2) mg/dl AST (15-37) U/L ALT (12-78) U/L Alkaline Phosphatase (45-117) U/L Troponin I (0-0.045) ng/ml NT-Pro-B Natriuret Pep (0-900) pg/ml Total Protein (6.4-8.2) gm/dl Albumin (3.4-5.0) gm/dl Globulin (2.5-4.0) gm/dl Albumin/Globulin Ratio (0.9-2) Lipase (73-393) U/L COVID-19 Eval Order Covid19 at [facility] SARS-CoV-2 (PCR) NEGATIVE (Negative) 08/01/21 08/01/21 Range/Units 13:57 13:57 WBC (4.8-10.8) K/uL RBC (4.7-6.1) M/uL Hgb (14.0-18.0) g/dL Hct (42-52) % MCV (80-100) fL MCH (25-34) pg MCHC (32-36) g/dL RDW Std Deviation (36.4-46.3) fL RDW Coeff of [place] (11.5-14.5) % Plt Count (130-400) K/uL MPV (7.4-10.4) fL Immature Gran % (Auto) % Neut % (Auto) % Lymph % (Auto) % Cotton % (Auto) % Eos % (Auto) % Baso % (Auto) % Neut # (Auto) (1.4-6.5) K/uL Lymph # (Auto) (1.2-3.4) K/uL Cotton # (Auto) (0.11-0.59) K/uL Eos # (Auto) (0-0.5) K/uL Baso # (Auto) (0-0.2) K/uL Immature Gran # (Auto) (0.00-0.02) K/uL PT 13.9 H (9.0-12.0) Seconds INR 1.4 H (0.9-1.1) APTT 38.2 H (21.0-31.0) Seconds PTT Ratio 1.5 Sodium 145 (136-145) mmol/L Potassium 4.1 (3.5-5.1) mmol/L Chloride 111 H (98-107) mmol/L Carbon Dioxide 30 (21-32) mmol/L Anion Gap 4.0 (3-11) BUN 23 H (7-18) mg/dl Creatinine 0.87 (0.6-1.4) mg/dl Est Cr Clr Drug Dosing 88.6 ml/min Est GFR ( Amer) 97.8 ml/min Est GFR (Non-Af Amer) 84.4 ml/min BUN/Creatinine Ratio 26.4 H (10-20) Glucose 111 H (70-99) mg/dl Calcium 8.8 (8.5-10.1) mg/dl Phosphorus 2.2 L (2.5-4.9) mg/dl Magnesium 2.0 (1.8-2.4) mg/dl Total Bilirubin 0.6 (0.2-1) mg/dl Direct Bilirubin 0.2 (0-0.2) mg/dl AST 11 L (15-37) U/L ALT 25 (12-78) U/L Alkaline Phosphatase 101 (45-117) U/L Troponin I 0.025 (0-0.045) ng/ml NT-Pro-B Natriuret Pep 452 (0-900) pg/ml Total Protein 6.7 (6.4-8.2) gm/dl Albumin 3.5 (3.4-5.0) gm/dl Globulin 3.2 (2.5-4.0) gm/dl Albumin/Globulin Ratio 1.1 (0.9-2) Lipase 53 L (73-393) U/L COVID-19 Eval Order SARS-CoV-2 (PCR) (Negative) Administered Medications Atorvastatin Calcium (Atorvastatin 40 Mg Tab) 40 mg PO HS ADOLFO Stop: 08/31/21 20:59 Last Admin: 08/01/21 20:10 Dose: 40 mg Documented by: [id number] Citalopram Hydrobromide (Citalopram 20 Mg Tab) 20 mg PO HS ADOLFO Stop: 08/31/21 20:59 Last Admin: 08/01/21 20:10 Dose: 20 mg Documented by: [id number] Fluticasone Furoate (Fluticasone Furoate 100mcg 14 Puffs/Inhaler) 1 puffs INH DAILY ADOLFO; Protocol Stop: 09/01/21 08:59 Last Admin: 08/02/21 07:52 Dose: 1 puffs Documented by: [id number] Methylprednisolone 60 mg/ (Syringe) 0.96 mls @ 1.5 mls/min IV TID ADOLFO Stop: 08/31/21 20:59 Last Admin: 08/02/21 07:51 Dose: 1.5 mls/min Documented by: [id number] Admin: 08/01/21 20:10 Dose: 1.5 mls/min Documented by: [id number] Doxycycline Hyclate 100 mg/ (Dextrose) 110 mls @ 50 mls/hr IV BID ADOLFO; Protocol Stop: 08/09/21 08:59 Last Infusion: 08/02/21 10:18 Dose: 0 mls/hr Documented by: [id number] Admin: 08/02/21 07:52 Dose: 50 mls/hr Documented by: [id number] Pantoprazole Sodium (Pantoprazole 40 Mg Tab) 40 mg PO DAILYBB ADOLFO; Protocol Stop: 09/01/21 06:29 Last Admin: 08/02/21 06:00 Dose: 40 mg Documented by: [id number] Umeclidinium/Vilanterol (Umeclidinium/Vilanterol 62.5/25mcg 7 Puffs/Inhaler) 1 puffs INH DAILY ADOLFO; Protocol Stop: 09/01/21 08:59 Last Admin: 08/02/21 07:52 Dose: 1 puffs Documented by: [id number] Vitamin D (Cholecalciferol 1,000 Units 25 Mcg Tab) 5,000 units PO QAM ADOLFO Stop: 09/01/21 08:59 Last Admin: 08/02/21 07:51 Dose: 5,000 units Documented by: [id number] Discontinued Medications Albuterol (Albut/Ipratrop 3mg/0.5mg Neb 3 Ml Vial) 12 ml NEB ONE ONE Stop: 08/01/21 14:02 Last Admin: 08/01/21 14:48 Dose: 12 ml Documented by: [id number] Guaifenesin (Guaifenesin 600 Mg Tabcr) 600 mg PO NOW STA Stop: 08/01/21 14:02 Last Admin: 08/01/21 14:17 Dose: 600 mg Documented by: [id number] Sodium Chloride (Nss) 500 mls @ 999 mls/hr IV .Q31M ONE Stop: 08/01/21 14:32 Last Infusion: 08/01/21 14:48 Dose: 999 mls/hr Documented by: [id number] Admin: 08/01/21 14:17 Dose: 999 mls/hr Documented by: [id number] Doxycycline Hyclate 100 mg/ (Dextrose) 110 mls @ 50 mls/hr IV NOW STA Stop: 08/01/21 19:19 Last Infusion: 08/01/21 19:50 Dose: 0 mls/hr Documented by: [id number] Admin: 08/01/21 17:33 Dose: 50 mls/hr Documented by: [id number] Levalbuterol HCl (Levalbuterol 1.25mg/0.5ml Neb) 1.25 mg NEB Q6R ADOLFO Stop: 08/31/21 19:29 Last Admin: 08/02/21 07:25 Dose: 1.25 mg Documented by: [id number] Admin: 08/02/21 02:22 Dose: 1.25 mg Documented by: [id number] Admin: 08/01/21 21:04 Dose: 1.25 mg Documented by: [id number] Methylprednisolone (Methylprednisolone 125 Mg/2 Ml Vial) 125 mg IV NOW STA Stop: 08/01/21 14:02 Last Admin: 08/01/21 14:17 Dose: 125 mg Documented by: [id number] Discharge Plan Visit Data Chief Complaint: Shortness of Breath/Dyspnea Stated Complaint: SOB ED Provider: Cuco Ford ED Midlevel Provider: Adán Light Discharge Problem: Acute respiratory failure with hypoxia, COPD exacerbation, HEYDI (obstructive sleep apnea) Patient Disposition: Admitted As Inpatient Discharge Instructions Interventions: ED Discharge Assessment Last Done: 08/01/21 18:14
[2021-08-01] MEDS ORDERED: ALBUT/IPRATROP 3MG/0.5MG NEB 3 ML VIAL NEB ONE (14:01)
[2021-08-01] MEDS ORDERED: methylPREDNISolone 125 MG/2 ML VIAL IV STA (14:01)
[2021-08-01] MEDS ORDERED: guaiFENesin 600 MG TABCR PO STA (14:01)
[2021-08-01] MEDS ORDERED: SODIUM CHLORIDE 0.9% 500 ML IV ONE (14:02)
--- NOTE | 2021-08-01 14:08 | XRay Report ---
XR chest 1V portable HISTORY: 75 years-old Male Chest Pain . Acute atypical chest pain COMPARISON: Chest radiograph CTA chest 07/25/2021 TECHNIQUE: Portable AP view of the chest FINDINGS: Cardiomediastinal and hilar silhouettes are within normal limits. No pneumothorax, pleural effusion, airspace consolidation or overt pulmonary edema. Unchanged right hemidiaphragmatic elevation. Degener ative changes of the shoulders and spine. IMPRESSION: No acute process. ACT 112: Negative or not required by law. The above report was generated using voice recognition software. It may contain grammatical, syntax o r spelling errors. Electronically signed by: Osbaldo Clemons M.D. 08/01/2021 2:07 PM
[2021-08-01 14:23] LABS: Basophils # (auto) 0.02 K/uL (0-0.2); Basophils % (auto) 0.2 %; Eosinophils # (auto) 1.42 K/uL (0-0.5); Eosinophils % (auto) 12.1 %; Hematocrit (blood only) 41.7 % (42-52); Hemoglobin 13.6 g/dL (14.0-18.0); Immature Granulocytes # (auto) 0.02 K/uL (0.00-0.02); Immature Granulocytes % (auto) 0.2 %; Lymphocytes # (auto) 1.96 K/uL (1.2-3.4); Lymphocytes % (auto) 16.7 %; Mean Corpuscular Hemoglobin 28.6 pg (25-34); Mean Corpuscular Hgb Conc 32.6 g/dL (32-36); Mean Corpuscular Volume 87.6 fL (80-100); Mean Platelet Volume 10.1 fL (7.4-10.4); Monocytes # (auto) 0.84 K/uL (0.11-0.59); Monocytes % (auto) 7.2 %; Neutrophils # (auto) 7.47 K/uL (1.4-6.5); Neutrophils % (auto) 63.6 %; Platelet Count 229 K/uL (130-400); RDW Coefficient of Variation 13.5 % (11.5-14.5); RDW Standard Deviation 43.9 fL (36.4-46.3); Red Blood Count 4.76 M/uL (4.7-6.1); White Blood Count 11.73 K/uL (4.8-10.8)
[2021-08-01 14:34] LABS: INR 1.4 (0.9-1.1); Partial Thromboplastin Ratio 1.5; Partial Thromboplastin Time 38.2 Seconds (21.0-31.0); Prothrombin Time 13.9 Seconds (9.0-12.0)
[2021-08-01 14:52] LABS: Albumin Level 3.5 gm/dl (3.4-5.0); BUN Creatinine Ratio 26.4 (10-20); Bilirubin Direct 0.2 mg/dl (0-0.2); Calcium 8.8 mg/dl (8.5-10.1); Creatinine Clr Calc Pharmacy 88.6 ml/min; Est GFR (African American) 97.8 ml/min; Est GFR (Non-African American) 84.4 ml/min; Potassium 4.1 mmol/L (3.5-5.1)
[2021-08-01 14:54] LABS: Albumin Globulin Ratio 1.1 (0.9-2); Bilirubin,Total 0.6 mg/dl (0.2-1); Globulin 3.2 gm/dl (2.5-4.0); Phosphorus 2.2 mg/dl (2.5-4.9); Total Protein 6.7 gm/dl (6.4-8.2); Troponin I 0.025 ng/ml (0-0.045)
--- NOTE | 2021-08-01 16:49 | History & Physical Report ---
Date of Service August 01, 2021 Assessment & Plan (1) COPD exacerbation: Plan: Solu-medrol 125mg IV given in ER, continue 60mg IV TID levalbuterol/ipratropium nebs q6h Doxycycline due to QTc would advise against azithromycin Continue Trelegy Ellipta or hospital formulary equivalent Aim O2 sats 90-92%, PRN BiPAP and HS (2) Acute respiratory failure with hypoxia: Plan: Aim O2 sats > 90% Secondary to COPD exacerbation and CPAP machine not working at home (3) HEYDI (obstructive sleep apnea): Plan: BiPAP/CPAP HS (4) Dysphagia: Plan: Secondary to prior stroke Continue on nectar thick, easy to chew diet (5) History of stroke: Plan: On Xarelto for prior embolic stroke in 12/2019 Plan: VTE Prophylaxis - Xarelto, prior pAF Diet - nectar thick, easy to chew diet Disposition - observation status to med/tele Admission and Anticipated Discharge Date Admission Date: August 01, 2021 History of Present Illness Chief Complaint: Shortness of breath Primary Care Provider: ROWAN Melo Kei Lassiter is a 75 year old male who presents to the ER with increasing cough and shortness of breath since his recent discharge on July 27, 2021. His partner reports after discharge his CPAP machine has not been working properly she is in the process of getting an auto-titrating CPAP from his PCP. He has had increasing problems coughing up clear phlegm. No fever or chills. Feels much better at the present time after being laced on BiPAP in the emergency room. Last night he barely managed any sleep as he was up all night feeling short of breath. He was seen by his PCP today and due to significant wheezing and hypoxia was advised to come to the ER for further evaluation. He was recently admitted fro [facility] from July 25-2020 due to the same symptoms however on that occasion had an elevated troponin. Cardiology felt this represented demand-ischemia rather than acute coronary syndrome and he was treated medically. He does have known coronary artery disease with RCA stent at the time of inferior ID placed in 2009. Troponing is negative on this occasion. In the ER he was noted to be diffusely wheezing. He was started on treatment for COPD exacerbation and placed on BiPAP with significant improvement in his symptoms. He was referred to medicine for admission and ongoing management of COPD exacerbation. Allergies Allergy/AdvReac Type Severity Reaction Status Date / Time fluticasone Allergy Mild Hives Verified 08/01/21 10:40 salmeterol Allergy Mild Hives Verified 08/01/21 10:40 Home Medications Medication Instructions Recorded Confirmed Type acetaminophen 650 mg 650 mg PO Q8H PRN 02/18/20 08/01/21 History tablet,extended release (Tylenol Arthritis Pain) ipratropium 0.5 mg-albuterol 3 mg 3 ml INHALATION Q4H PRN #360 ml 08/18/20 08/01/21 Rx (2.5 mg base)/3 mL nebulization soln rivaroxaban 20 mg tablet (Xarelto) 20 mg PO QAM 10/19/20 08/01/21 History albuterol sulfate 90 mcg/actuation 2 puff INHALATION Q4H PRN #18 g 07/13/21 08/01/21 Rx aerosol inhaler resveratrol 50 mg capsule 50 mg PO QAM 07/13/21 08/01/21 History 3 Fiber Force 6 1 dose PO QAM 07/25/21 08/01/21 History atorvastatin 40 mg tablet 40 mg PO HS 07/25/21 08/01/21 History cholecalciferol (vitamin D3) 125 125 mcg PO QAM 07/25/21 08/01/21 History mcg (5,000 unit) capsule citalopram 20 mg tablet 20 mg PO HS 07/25/21 08/01/21 History coQ10 (ubiquinol) 200 mg capsule 200 mg PO QAM 07/25/21 08/01/21 History fluticasone fur. 100 mcg-umeclid 1 inh INHALATION QAM 07/25/21 08/01/21 History 62.5 mcg-vilant 25 mcg inhalat.powder (Trelegy Ellipta) omega-3 fatty acids-fish oil 360 1 cap PO BID 07/25/21 08/01/21 History mg-1,200 mg capsule omeprazole 40 mg capsule,delayed 40 mg PO DAILYBB 07/25/21 08/01/21 History release tramadol 50 mg tablet 50 mg PO Q6H PRN 07/25/21 08/01/21 History Auto Titrating CPAP #1 ea 08/01/21 08/01/21 Rx Past Med/Surg History Medical History Acute embolic stroke (~02/2020) Acute ischemic stroke Arthritis BPH (benign prostatic hyperplasia) Bronchitis CAD (coronary artery disease) COPD (chronic obstructive pulmonary disease) Diabetes mellitus Elevated PSA 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 Hemoperitoneum History of CHF (congestive heart failure) History of respiratory failure Knee pain Lupus anticoagulant positive Metabolic encephalopathy Multifocal pneumonia Oropharyngeal dysphagia 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, including canthus Paroxysmal atrial fibrillation Pulmonary embolism Sleep apnea (~09/2014) Urinary incontinence Surgical History H/O knee surgery History of bronchoscopy History of cardiac catheterization (~05/01/10) History of sinus surgery PEG (percutaneous endoscopic gastrostomy) status (~12/2019) Family History Mother Heart disease Hypertension Father Emphysema, unspecified Hearing loss Grandfather Stroke Denies family history of Ovarian cancer Prostate cancer Breast cancer Lung cancer Colorectal cancer Cancer Asthma Social History Smoking Status: Former smoker Tobacco Type: Cigarettes Age Started Using Tobacco: 15; Age Quit Using Tobacco: 44; packs per day: 2; Years Smoked: 29; Cigarettes Per Day: 1.5 PPD; Smoking End Date: ; Second Hand Exposure: No; Do You Dip or Chew Tobacco: No; Hx Alcohol Use: No Hx Substance Use: No Preferred Language: Bulgarian Communication Ability: Effective Visual Impairment: No Limitations Hearing Ability: Use of Hearing Aid Supervisor Feed House Required: No Beliefs That Will Affect Care: None marital status: girlfriend Current Living Situation: Significant Other Current Living Situation Comment: Home w/ significant other, Tammy Hernandez current occupational status: retired 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 [employer] How many Children do You have: 1 Other Information That Helps Us Care for You: No other: Retired age 52 Feels Safe at Home: Yes Safety Concerns: Feels Safe At This Time Diet Comment: regular caffeine: Yes during the past year weight has: remained stable Dental Care, Regularly: Yes Physical Activity Frequency: Does not Exercise Seatbelt Use: always Sunscreen Use: No Assistive Devices: Denture - Lower, Glasses, Hearing Aid - Bilateral and Walker Review of Systems Review of Systems: All systems reviewed & are unremarkable except as noted in HPI & below Physical Exam Constitutional: well developed and + acute distress (respiratory, currently on BiPAP) Eyes: + anicteric sclerae; normal pupil size ENMT: Mouth: + dry oral mucous membranes Neck: trachea midline, no thyromegaly Respiratory: + respiratory distress, + labored breathing, + retractions, + uses accessory muscles, + cough, + tachypneic, + prolonged expiratory phase and + audible wheezes Auscultation: + diminished lung sounds (bibasal) and + wheezes (expiratory throughout); no crackles and no rales Cardiovascular: Rate/Rhythm: regular rhythm and + tachycardic Heart Sounds: no murmur Extremities: normal capillary refill and + pedal edema (1+ equal pre-tibial); no calf tenderness Gastrointestinal (Abdomen): Inspection/Auscultation: + abdomen distended and normal bowel sounds Percussion/Palpation: abdomen soft; abdomen nontender Musculoskeletal: no cyanosis or clubbing, extremities motor strength 5/5 Skin: no rashes, warm and dry Neurologic: moves all extremities and awake; not confused Psychiatric: A+Ox3, euthymic affect Results & Data Results & Data ([facility]) Vital Signs (Past 12 Hours) Vital Signs Temp Pulse Pulse Resp BP Pulse Ox 08/01/21 16:30 100 H 19 100 08/01/21 16:00 112 H 20 100 08/01/21 15:30 97 H 19 159/89 H 99 08/01/21 15:00 91 H 24 163/92 H 99 08/01/21 14:50 96 H 24 99 08/01/21 14:49 96 H 24 99 08/01/21 14:32 115 H 25 H 183/121 H 95 08/01/21 14:00 75 22 152/81 H 98 08/01/21 13:36 97 08/01/21 13:31 36.8 C 77 24 139/91 98 Diagnostic Findings XR chest 1V portable HISTORY: 75 years-old Male Chest Pain . Acute atypical chest pain COMPARISON: Chest radiograph CTA chest 07/25/2021 TECHNIQUE: Portable AP view of the chest FINDINGS: Cardiomediastinal and hilar silhouettes are within normal limits. No pneumothorax, pleural effusion, airspace consolidation or overt pulmonary edema. Unchanged right hemidiaphragmatic elevation. Degenerative changes of the shoulders and spine. IMPRESSION: No acute process. ECG Rate (beats per minute): 93 Findings: + PVC and + RBBB; no acute ischemic change Comparison ECG Date: from (July 26, 2021) Change: no significant change Code Status & VTE Plan Code Status All treatment outisde of a cardiac arrest as discussed with his son George VTE Prophylaxis Plan VTE Prophylaxis will be ordered: Yes PG Care Time/CCT Total # of Minutes Spent Total Time Spent with Patient: Total time spent is greater than 50% in coordination of care (as documented) at patient's floor/unit and/or counseling patient: Coding Level of Care Code INT OBSERVATION CARE 70M LVL 3 Diagnoses COPD exacerbation J44.1 Acute respiratory failure with hypoxia J96.01 HEYDI (obstructive sleep apnea) G47.33 Dysphagia R13.10 History of stroke Z86.73
[2021-08-01] MEDS ORDERED: DOXYCYCLINE HYCLATE 100 MG in DEXTROSE 5% 100 ML IV STA (17:08)
--- NOTE | 2021-08-01 18:33 | Emergency Department Note ---
ED Visit Note I saw this patient with Dr. Ford. Please refer to his note for HPI. . Resident Activity Tracking Resident Involvement: Resident Care Provided Care Provided: Adult ED
[2021-08-01] MEDS ORDERED: traMADol HCL 50 MG TABLET PO PRN (19:09)
[2021-08-01] MEDS ORDERED: ONDANSETRON INJ 2 MG/ML 2 ML VIAL IV PRN (19:09)
[2021-08-01] MEDS ORDERED: ACETAMINOPHEN 325 MG TAB PO PRN (19:18)
[2021-08-01] MEDS: CITALOPRAM 20 MG TAB PO SCH (20:10)
[2021-08-01] MEDS: ATORVASTATIN 40 MG TAB PO SCH (20:10)
[2021-08-01] MEDS: methylPREDNISolone 60 MG in SYRINGE 0 ML IV SCH (20:10)
[2021-08-01] MEDS ORDERED: methylPREDNISolone 125 MG/2 ML VIAL IV SCH (21:00)
[2021-08-01] MEDS: LEVALBUTEROL 1.25MG/0.5ML NEB NEB SCH (21:04)
[2021-08-02] MEDS: LEVALBUTEROL 1.25MG/0.5ML NEB NEB SCH ×2 (02:22→07:25)
[2021-08-02] MEDS: PANTOprazole 40 MG TAB PO SCH (06:00)
[2021-08-02 07:25] LABS: Eosinophils # (auto) 0.01 K/uL (0-0.5); Eosinophils % (auto) 0.1 %; Hematocrit (blood only) 40.5 % (42-52); Hemoglobin 13.1 g/dL (14.0-18.0); Immature Granulocytes # (auto) 0.01 K/uL (0.00-0.02); Immature Granulocytes % (auto) 0.1 %; Lymphocytes # (auto) 0.85 K/uL (1.2-3.4); Lymphocytes % (auto) 8.3 %; Mean Corpuscular Hemoglobin 28.9 pg (25-34); Mean Corpuscular Hgb Conc 32.3 g/dL (32-36); Mean Corpuscular Volume 89.4 fL (80-100); Mean Platelet Volume 10.5 fL (7.4-10.4); Monocytes # (auto) 0.35 K/uL (0.11-0.59); Monocytes % (auto) 3.4 %; Neutrophils # (auto) 8.97 K/uL (1.4-6.5); Neutrophils % (auto) 88.1 %; Platelet Count 241 K/uL (130-400); RDW Coefficient of Variation 13.8 % (11.5-14.5); RDW Standard Deviation 45.5 fL (36.4-46.3); Red Blood Count 4.53 M/uL (4.7-6.1); White Blood Count 10.19 K/uL (4.8-10.8)
[2021-08-02] MEDS: methylPREDNISolone 60 MG in SYRINGE 0 ML IV SCH ×3 (07:51→20:09)
[2021-08-02] MEDS: CHOLECALCIFEROL 1,000 UNITS 25 MCG TAB PO SCH (07:51)
[2021-08-02] MEDS: FLUTICASONE FUROATE 100MCG 14 PUFFS/INHALER INH SCH (07:52)
[2021-08-02] MEDS: UMECLIDINIUM/VILANTEROL 62.5/25MCG 7 PUFFS/INHALER INH SCH (07:52)
[2021-08-02] MEDS: DOXYCYCLINE HYCLATE 100 MG in DEXTROSE 5% 100 ML IV SCH ×2 (07:52→20:16)
[2021-08-02 08:06] LABS: BUN Creatinine Ratio 28.6 (10-20); Calcium 9.1 mg/dl (8.5-10.1); Creatinine Clr Calc Pharmacy 85.2 ml/min; Est GFR (African American) 95.2 ml/min; Est GFR (Non-African American) 82.2 ml/min; Potassium 3.6 mmol/L (3.5-5.1)
[2021-08-02] MEDS ORDERED: LEVALBUTEROL 1.25MG/0.5ML NEB NEB PRN (08:56)
[2021-08-02] MEDS ORDERED: NON-FORMULARY MEDICATION (Fluticasone-Umeclidin-Vilanter [Trelegy Ellipta] 100-62.5-25 mcg INH SCH (09:00)
[2021-08-02] MEDS ORDERED: RESVERATROL 50 MG PO SCH (09:00)
[2021-08-02] MEDS: RIVAROXABAN 20 MG TAB PO SCH (15:32)
[2021-08-02] MEDS: ATORVASTATIN 40 MG TAB PO SCH (20:09)
[2021-08-02] MEDS: CITALOPRAM 20 MG TAB PO SCH (20:09)
--- NOTE | 2021-08-02 21:46 | Electrocardiogram Report ---
Test Reason : Blood Pressure : / mmHG Vent. Rate : 093 BPM Atrial Rate : 093 BPM P-R Int : 186 ms QRS Dur : 150 ms QT Int : 418 ms P-R-T Axes : 000 090 027 degrees QTc Int : 519 ms Sinus rhythm with frequent Premature ventricular complexes Right bundle branch block Abnormal ECG When compared with ECG of 26-JUL-2021 02:20, SC interval has decreased Confirmed by Ryder Steen ([id number]) on 08/02/2021 9:46:16 PM Referred By: SELF Confirmed By:Ryder Steen
[2021-08-03] MEDS: PANTOprazole 40 MG TAB PO SCH (06:00)
--- NOTE | 2021-08-03 08:11 | Hospitalist Progress Note ---
Date of Service August 02, 2021 Assessment & Plan (1) COPD exacerbation: Plan: Solu-medrol 125mg IV given in ER, 60 mg IV 3 times daily decreased to twice daily levalbuterol/ipratropium nebs q6h Doxycycline due to QTc would advise against azithromycin Continue [facility] or hospital formulary equivalent Aim O2 sats 90-92%, PRN BiPAP and HS (2) Acute respiratory failure with hypoxia: Plan: Aim O2 sats > 90% Secondary to COPD exacerbation and CPAP machine not working at home Working with case management to arrange home oxygen/oxygen study as needed. (3) HEYDI (obstructive sleep apnea): Plan: BiPAP/CPAP HS (4) Dysphagia: Plan: Secondary to prior stroke Continue on nectar thick, easy to chew diet (5) History of stroke: Plan: On Xarelto for prior embolic stroke in 12/2019 Plan: VTE Prophylaxis - Xarelto, prior pAF Diet - nectar thick, easy to chew diet Disposition - observation status to med/tele Admission and Anticipated Discharge Date Admission Date: August 01, 2021 Corinne Choudhury was seen at bedside, he reports he feels "okay "but not quite back to baseline. Continues to have some wheezing and shortness of breath at night and with ambulation, but improved from prior. Does not yet have CPAP set up at home. Stephenson cold overnight, but denies fever/chills. Review of Systems Review of Systems: 10 point review of systems negative except as noted in HPI Physical Exam Physical Exam: General: A&Ox3. NAD. Cooperative. HEENT: Atraumatic, normocephalic. Visual acuity and hearing grossly intact Pulm: Scattered expiratory wheezes, otherwise CTAB A&P. No rales or-rhonchi. Symmetrical chest rise. No increase work of breathing. No respiratory distress. Cardiac: RRR, -mrg. Radial pulses intact and symmetrical. Abdominal: Nontender, nondistended, soft. BS present. Extremities: Moving all extremities equally, skin warm and dry, sensation in hands and feet grossly intact Results & Data Results & Data ([facility]) Vital Signs (Past 12 Hours) Vital Signs Temp Pulse Pulse Resp BP Pulse Ox 08/03/21 03:03 36.4 C L 73 20 149/91 H 99 08/03/21 00:03 71 08/02/21 23:09 36.3 C L 71 20 144/79 H 98 08/02/21 22:15 72 18 98 PG Care Time/CCT Total # of Minutes Spent Total Time Spent with Patient: Total time spent is greater than 50% in coordination of care (as documented) at patient's floor/unit and/or counseling patient: Coding Level of Care Code 05620 Subseq Hosp Care Lvl 1 Diagnoses COPD exacerbation J44.1 Acute respiratory failure with hypoxia J96.01 HEYDI (obstructive sleep apnea) G47.33 Dysphagia R13.10 History of stroke Z86.73
--- NOTE | 2021-08-03 08:13 | Hospitalist Progress Note ---
Date of Service August 03, 2021 Assessment & Plan (1) COPD exacerbation: Plan: - Steroids converted to prednisone 40 mg daily - levalbuterol/ipratropium nebs q6h - Doxycycline due to QTc would advise against azithromycin - Trelegy converted to inpt bioequiv, continue Umeclidinium/Vilanterol and fluticasone - Aim O2 sats 90-92%, PRN BiPAP and HS Clinically improved on exam today (2) Acute respiratory failure with hypoxia: Plan: - Aim O2 sats > 90% - Secondary to COPD exacerbation and CPAP machine not working at home - CPAP pending mask set up, new mask being brought to patient's house tomorrow Discussed with case management who also reached out to PCPs office in patient's home. Patient is being set up with home oxygen, but requires an overnight pulse ox. Will perform overnight pulse ox tonight While patient looks clinically well today and improved, and is at his baseline respiratory status during the day, given his high risk of readmission and additional time to set up resources at home not yet available to maintain a safe respiratory environment will complete pulse ox and continue to follow (3) HEYDI (obstructive sleep apnea): Plan: BiPAP/CPAP HS. See overnight pulse ox study above (4) Dysphagia: Plan: Secondary to prior stroke Continue on nectar thick, easy to chew diet (5) History of stroke: Plan: On Xarelto for prior embolic stroke in 12/2019 Plan: VTE Prophylaxis - Xarelto, prior pAF Diet - nectar thick, easy to chew diet Disposition - observation status to med/tele Admission and Anticipated Discharge Date Admission Date: August 01, 2021 Corinne Choudhury is seen at the bedside today. He reports he feels much better, and is close to his normal baseline health. He is breathing comfortably on room air. He reports he was a little short of breath overnight when he got up, but feels well during the day. He reports that he still does not his CPAP mask and has oxygen set up for home, which was the cause of his failure and need for readmission. Discussed with his and case management as noted in A&P. He denies fever, chills, sweats, wheezing, nausea, vomiting, diarrhea this morning. Review of Systems Review of Systems: 10 point review of systems negative except as noted in HPI Physical Exam Physical Exam: General: A&Ox3. NAD. Cooperative. HEENT: Atraumatic, normocephalic. Dual acuity and hearing grossly intact Pulm: Scattered end expiratory wheezes, otherwise CTAB A&P. -wheezes, -rhonchi. Symmetrical chest rise. No increase work of breathing. No respiratory distress. Cardiac: RRR, -mrg. Radial pulses intact and symmetrical. Abdominal: Nontender, nondistended, soft. BS present. Extremities: Moving all extremities equally, skin warm and dry, sensation in hands and feet grossly intact Results & Data Results & Data ([facility]) Vital Signs (Past 12 Hours) Vital Signs Temp Pulse Pulse Resp BP Pulse Ox 08/03/21 03:03 36.4 C L 73 20 149/91 H 99 08/03/21 00:03 71 08/02/21 23:09 36.3 C L 71 20 144/79 H 98 08/02/21 22:15 72 18 98 PG Care Time/CCT Total # of Minutes Spent Total Time Spent with Patient: Total time spent is greater than 50% in coordination of care (as documented) at patient's floor/unit and/or counseling patient: Coding Level of Care Code 59909 Subseq Hosp Care Lvl 2 Diagnoses COPD exacerbation J44.1 Acute respiratory failure with hypoxia J96.01 HEYDI (obstructive sleep apnea) G47.33 Dysphagia R13.10 History of stroke Z86.73
[2021-08-03] MEDS: FLUTICASONE FUROATE 100MCG 14 PUFFS/INHALER INH SCH (08:21)
[2021-08-03] MEDS: UMECLIDINIUM/VILANTEROL 62.5/25MCG 7 PUFFS/INHALER INH SCH (08:22)
[2021-08-03] MEDS: CHOLECALCIFEROL 1,000 UNITS 25 MCG TAB PO SCH (08:22)
[2021-08-03] MEDS: DOXYCYCLINE HYCLATE 100 MG in DEXTROSE 5% 100 ML IV SCH ×2 (08:25→20:43)
[2021-08-03] MEDS ORDERED: methylPREDNISolone 60 MG in SYRINGE 0 ML IV SCH (09:00)
[2021-08-03] MEDS: RIVAROXABAN 20 MG TAB PO SCH (15:53)
[2021-08-03] MEDS: ATORVASTATIN 40 MG TAB PO SCH (20:43)
[2021-08-03] MEDS: CITALOPRAM 20 MG TAB PO SCH (20:43)
[2021-08-04] MEDS: PANTOprazole 40 MG TAB PO SCH (05:42)
[2021-08-04 06:58] LABS: BUN Creatinine Ratio 34.7 (10-20); Calcium 8.9 mg/dl (8.5-10.1); Creatinine Clr Calc Pharmacy 71.2 ml/min; Est GFR (African American) 76.5 ml/min
[2021-08-04] MEDS: FLUTICASONE FUROATE 100MCG 14 PUFFS/INHALER INH SCH (07:49)
[2021-08-04] MEDS: CHOLECALCIFEROL 1,000 UNITS 25 MCG TAB PO SCH (07:49)
[2021-08-04] MEDS: UMECLIDINIUM/VILANTEROL 62.5/25MCG 7 PUFFS/INHALER INH SCH (07:49)
[2021-08-04] MEDS: DOXYCYCLINE HYCLATE 100 MG in DEXTROSE 5% 100 ML IV SCH (08:29)
[2021-08-04] MEDS ORDERED: predniSONE 20 MG TAB PO SCH (09:00)
--- NOTE | 2021-08-04 17:10 | Discharge Summary ---
Date of Service August 04, 2021 Admission HPI Per Admitting Provider Kei Lassiter is a 75 year old male who presents to the ER with increasing cough and shortness of breath since his recent discharge on July 27, 2021. His partner reports after discharge his CPAP machine has not been working properly she is in the process of getting an auto-titrating CPAP from his PCP. He has had increasing problems coughing up clear phlegm. No fever or chills. Feels much better at the present time after being laced on BiPAP in the emergency room. Last night he barely managed any sleep as he was up all night feeling short of breath. He was seen by his PCP today and due to significant wheezing and hypoxia was advised to come to the ER for further evaluation. He was recently admitted fro [facility] from July 25-2020 due to the same symptoms however on that occasion had an elevated troponin. Cardiology felt this represented demand-ischemia rather than acute coronary syndrome and he was treated medically. He does have known coronary artery disease with RCA stent at the time of inferior OH placed in 2009. Troponing is negative on this occasion. In the ER he was noted to be diffusely wheezing. He was started on treatment for COPD exacerbation and placed on BiPAP with significant improvement in his symptoms. He was referred to medicine for admission and ongoing management of COPD exacerbation. Admission Exam Per Admitting Provider Constitutional: well developed and + acute distress (respiratory, currently on BiPAP) Eyes: + anicteric sclerae; normal pupil size ENMT: Mouth: + dry oral mucous membranes Neck: trachea midline, no thyromegaly Respiratory: + respiratory distress, + labored breathing, + retractions, + uses accessory muscles, + cough, + tachypneic, + prolonged expiratory phase and + audible wheezes Auscultation: + diminished lung sounds (bibasal) and + wheezes (expiratory throughout); no crackles and no rales Cardiovascular: Rate/Rhythm: regular rhythm and + tachycardic Heart Sounds: no murmur Extremities: normal capillary refill and + pedal edema (1+ equal pre- tibial); no calf tenderness Gastrointestinal (Abdomen): Inspection/Auscultation: + abdomen distended and normal bowel sounds Percussion/Palpation: abdomen soft; abdomen nontender Musculoskeletal: no cyanosis or clubbing, extremities motor strength 5/5 Skin: no rashes, warm and dry Neurologic: moves all extremities and awake; not confused Psychiatric: A+Ox3, euthymic affect Principal Diagnosis COPD exacerbation Discharge Exam General: A&Ox3. NAD. Cooperative. HEENT: Atraumatic, normocephalic. Dual acuity and hearing grossly intact Pulm: moderate air movement-wheezes, -rhonchi. Symmetrical chest rise. No increase work of breathing. No respiratory distress. Cardiac: RRR, -mrg. Radial pulses intact and symmetrical. Abdominal: Nontender, nondistended, soft. BS present. Extremities: Moving all extremities equally, skin warm and dry, sensation in hands and feet grossly intact. Walks between his bed to the chair comfortably with no acute distress and no obvious weakness. Discharge Data Allergies Allergy/AdvReac Type Severity Reaction Status Date / Time fluticasone Allergy Mild Hives Verified 08/01/21 10:40 salmeterol Allergy Mild Hives Verified 08/01/21 10:40 Consultations 08/01/21 15:30 ED Decision to Admit Stat Hospital Course (1) COPD exacerbation: Kei is a 75-year-old male who presented with acute hypoxic respiratory failure due to commendation of COPD exacerbation and not having his CPAP mask correctly fitted/working at home. He was treated with steroids and discharged to continue a prednisone taper as outpatient. No signs of superimposed pneumonia. To do as outpatient: 1. Routine PCP follow-up 2. Complete prednisone taper, 40 mg decreasing by 5 mg daily 3. Meeting with [facility] to have CPAP mask refitted Solu-medrol 125mg IV given in ER, 60 mg IV 3 times daily gradually titrated down to prednisone 40 mg daily levalbuterol/ipratropium nebs q6h Doxycycline due to QTc would advise against azithromycin Converted to [facility] equivalent Maintained adequate oxygenation, and clinically improved Discharge to complete a 40 mg steroid taper decreasing by 5 mg/day Overnight pulse ox did not indicate need for continuous oxygen at night Patient discharged in good condition to meet with [facility] care at 1 PM to have mask refitted (2) Acute respiratory failure with hypoxia: Secondary to COPD exacerbation and CPAP machine not working at home (3) HEYDI (obstructive sleep apnea): BiPAP/CPAP HS (4) Dysphagia: Secondary to prior stroke Continued on nectar thick, easy to chew diet (5) History of stroke: On Xarelto for prior embolic stroke in 12/2019 Continue to, no evidence of stroke pathology during admission Total Time Total Time Spent Total Time Spent (In Minutes): Total time spent preparing discharge on day of discharge including direct clinical care, review of labs and images, documentation 35 minutes. Discharge Plan Discharge Items Patient Disposition: Home - Self-Care Reason For Visit: COPD EXACERBATION Discharge Diagnosis: Acute hypoxic respiratory failure, COPD exacerbation Activity: Resume your previous activity Non-emergency contact: Primary Care Provider Call non-emergency contact if: you have any medication questions, your symptoms worsen, your pain is not controlled and you have a fever Follow-up/Referrals: Kimani Meier CRNP [Primary Care Provider] - 08/15/21 8:20 am (Follow up on Saturday08/15/2021 at 8:20am with ROWAN Peguero) Diet: Regular Addtl Attending Provider Instructions: You were seen in the hospital for acute hypoxic respiratory failure likely due to a COPD exacerbation and not being set up with your CPAP mask at home. You have been prescribed a prednisone taper. Please take prednisone daily starting at 40 mg and decreasing by 5 mg each day until taper complete. You had an overnight pulse-ox study performed with your CPAP on room air. Your oxygen levels were normal overnight, indicating you should use your CPAP at home, but do not require oxygen with the CPAP at this time. A followup appointment is being scheduled for you with Dr. Meier. You shou ld be seen seen within 1 week. You should receive a call to confirm this appointment. If you do not receive a call within 48 hours to confirm this appointment, or need to change this appointment, please call the provider's office at [phone]. If you develop any new or worsening symptoms including fever, chills, sweats, chest pain, chest pressure, difficulty breathing, uncontrolled nausea/vomiting, rash, wheezing, passing out or nearly passing out, bleeding, black/bloody bowel movements, or other new or concerning symptoms please call your primary care physician at [phone], or call 911 for re-evaluation in the emergency department if you are very concerned. Pending Studies at Discharge: Yes Stand-Alone Forms: [employer], Smoking Cessation Medications and DC Order Prescriptions: New prednisone 5 mg tablet See Rx Instructions .ROUTE .COMPLEX Qty: 36 RF: 0 Continued Xarelto 20 mg tablet 20 mg PO QAM RF: 0 ipratropium-albuterol 0.5 mg-3 mg(2.5 mg base)/3 mL solution for nebulization 3 ml INHALATION Q4H PRN (Reason: Wheezing) Qty: 360 RF: 5 resveratrol 50 mg capsule 50 mg PO QAM RF: 0 albuterol sulfate 90 mcg/actuation HFA aerosol inhaler 2 puff INHALATION Q4H PRN (Reason: Shortness Of Breath) Qty: 18 RF: 5 (DME) Auto Titrating CPAP Misc See Rx Instructions .Route Qty: 1 RF: 0 acetaminophen [Tylenol Arthritis Pain] 650 mg Tablet Extended Release 650 mg PO Q8H PRN (Reason: Fever) RF: 0 3 Fiber Force 6 1 dose PO QAM RF: 0 atorvastatin 40 mg Tablet 40 mg PO HS RF: 0 omega-3 fatty acids-fish oil 360-1,200 mg Capsule 1 cap PO BID RF: 0 coQ10 (ubiquinol) 200 mg Capsule 200 mg PO QAM RF: 0 omeprazole 40 mg capsule,delayed release(DR/EC) 40 mg PO DAILYBB RF: 0 tramadol 50 mg tablet 50 mg PO Q6H PRN (Reason: Pain) RF: 0 citalopram 20 mg tablet 20 mg PO HS RF: 0 cholecalciferol (vitamin D3) 125 mcg (5,000 unit) capsule 125 mcg PO QAM RF: 0 Trelegy Ellipta 100-62.5-25 mcg blister with device 1 inh inhalation QAM RF: 0 No Action (DME) CPAP Supplies Misc See Rx Instructions .Route Qty: 1 RF: 0 (DME) CPAP Machine Misc See Rx Instructions .Route Qty: 1 RF: 0 Discharge Orders: Discharge Order (Routine); Ordered 08/04/21 Ordered By: Sanya Alvarez Admission Data Admit Date/Time: 08/01/21 17:07 Attending Provider: Sanya Alvarez Admit Provider: Luis Queen Primary Care Provider: Kimani Meier Other Providers: Luis Queen ; Bernard Salazar [facility] Other Interventions: Discharge Summary Assessment (RN) Last Done: 08/04/21 10:35 Coding Level of Care Code D/C DAY MANAGEMENT >30 MINS Diagnoses COPD exacerbation J44.1 Acute respiratory failure with hypoxia J96.01 HEYDI (obstructive sleep apnea) G47.33 Dysphagia R13.10 History of stroke Z86.73
== END 2021-08-04 12:25 | disposition home health service (06) ==
LOC: ED 13:13 → 2N 13:13 → SUATTDRO 17:07 → 2N 18:14

== ENCOUNTER 2022-06-29 08:29 | Inpatient (IN) ==
[2022-06-29] MEDS ORDERED: ALBUT/IPRATROP 3MG/0.5MG NEB 3 ML VIAL NEB STA ×2 (09:09→10:54)
--- NOTE | 2022-06-29 09:41 | Emergency Department Note ---
History of Present Illness General Chief complaint: Shortness of Breath/Dyspnea Stated complaint: SOB Time Seen by Provider: 06/29/22 08:39 Source: patient Mode of arrival: ambulatory Limitations: physical limitation (Increased work of breathing, prior stroke) History of Present Illness Provider complaint: Shortness of breath Onset (ago): day(s) Maximum Pain Intensity: 9 This is a 76-year-old male presents emergency department due to increased shortness of breath. Patient does have a history of COPD due to prior tobacco use. He denies any current use of oxygen at home, states he does use other MDI/nebs. Patient states breathing has been worsening over the last several days. Patient answers in short phrases or nods yes and no due to increased work of breathing. Per nursing report EMS did give him a DuoNeb in route. He was noted to be hypoxic and was placed on oxygen via nasal cannula. Patient is on chronic anticoagulation. He has had a prior pulmonary embolism. He does have history of coronary artery disease and atrial fibrillation. Patient denies any worsening cough or increased sputum production. Denies hemoptysis. He denies fevers, chills, nasal congestion, rhinorrhea, or sore throat. Pt seen during a time of high acuity and national emergency pandemic while wearing PPE. Home Medications Medication Instructions Recorded Confirmed Type acetaminophen 650 mg 650 mg PO Q8H PRN Fever 02/18/20 04/12/22 History tablet,extended release (Tylenol Arthritis Pain) rivaroxaban 20 mg tablet (Xarelto) 20 mg PO QAM 10/19/20 04/12/22 History albuterol sulfate 90 mcg/actuation 2 puff inhalation Q4H PRN 07/13/21 04/12/22 Rx aerosol inhaler Shortness Of Breath #18 grams resveratrol 50 mg capsule 50 mg PO QAM 07/13/21 04/12/22 History cholecalciferol (vitamin D3) 125 125 mcg PO QAM 07/25/21 04/12/22 History mcg (5,000 unit) capsule coQ10 (ubiquinol) 200 mg capsule 200 mg PO QAM 07/25/21 04/12/22 History omega-3 fatty acids-fish oil 360 1 cap PO BID 07/25/21 04/12/22 History mg-1,200 mg capsule Auto Titrating CPAP #1 ea 08/01/21 04/12/22 Rx CPAP Machine #1 ea 08/04/21 04/12/22 Rx CPAP Supplies #1 ea 08/04/21 04/12/22 Rx ipratropium 0.5 mg-albuterol 3 mg 3 ml inhalation Q4H PRN Wheezing 10/02/21 04/12/22 Rx (2.5 mg base)/3 mL nebulization #360 mL soln guaifenesin 600 mg tablet, 600 mg PO BID 11/23/21 04/12/22 History extended release 12 hr (Mucinex) fluticasone fur. 100 mcg-umeclid 1 inh inhalation QAM #60 ea 01/26/22 04/12/22 Rx 62.5 mcg-vilant 25 mcg inhalat.powder (Trelegy Ellipta) psyllium 1 packet PO DAILY PRN Constipation 03/22/22 04/12/22 History fexofenadine [Shilpi Allergy] PO 04/12/22 04/12/22 History levetiracetam 500 mg tablet 500 mg PO BID 90 days #180 tabs 05/18/22 Rx sertraline 100 mg tablet See Rx Instructions .Route 06/07/22 Rx .COMPLEX #30 tabs atorvastatin 40 mg tablet 40 mg PO HS #90 tabs 06/11/22 Rx omeprazole 40 mg capsule,delayed 40 mg PO DAILYBB #90 caps 06/21/22 Rx release prednisone 20 mg tablet 40 mg PO DAILY 5 days #10 tabs 06/26/22 Rx tramadol 50 mg tablet 50 mg PO Q6H PRN Pain #30 tabs 06/26/22 Rx Allergies Allergy/AdvReac Type Severity Reaction Status Date / Time fluticasone Allergy Mild Hives Verified 04/12/22 13:49 salmeterol Allergy Mild Hives Verified 04/12/22 13:49 Past Med/Surg History Medical History Acute blood loss anemia Acute embolic stroke (~02/2020) 12/2019 secondary to afib [facility] Acute ischemic stroke had multiple from testing, 12/2019 was last one will start xarelto after Dr. Elena removes Peg tube Arthritis Benign localized prostatic hyperplasia with lower urinary tract symptoms (LUTS) CAD (coronary artery disease) Chronic obstructive pulmonary disease Diabetes mellitus Elevated PSA Factor VIII inhibitor disorder Dr. 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, including canthus PAC (premature atrial contraction) PAF (paroxysmal atrial fibrillation) Paroxysmal SVT (supraventricular tachycardia) Pulmonary embolism Respiratory failure Urinary incontinence Surgical History H/O knee surgery History of bronchoscopy History of cardiac catheterization (~05/01/10) 05/01/2010-PCI of OM 2 with CAROLINE History of sinus surgery PEG (percutaneous endoscopic gastrostomy) status (~12/2019) placed due to stroke and then had bleeding after PEG tube insertion was sent to [facility] and found weak vessel in small bowel and clamped it had blood transfusion Status post insertion of percutaneous endoscopic gastrostomy (PEG) tube Family History Mother , in her 70s of an MD Heart disease Hypertension Father , in his late 60s of pulmonary issues Emphysema, unspecified Hearing loss Grandfather Stroke Denies family history of Ovarian cancer Prostate cancer Breast cancer Lung cancer Colorectal cancer Cancer Asthma Social History Smoking Status: Former smoker Tobacco Type: Cigarettes Age Started Using Tobacco: 15; Age Quit Using Tobacco: 44; packs per day: 2; Years Smoked: 29; Cigarettes Per Day: 1.5 PPD; Second Hand Exposure: No; Hx Alcohol Use: Yes Alcohol type: beer Hx Substance Use: No Preferred Language: Japanese Communication Ability: Impaired Visual Impairment: No Limitations Hearing Ability: Use of Hearing Aid Cultural Historian Required: No Beliefs That Will Affect Care: None marital status: Single Current Living Situation: Spouse Current Living Situation Comment: Home w/ significant other, Tammy David current occupational status: retired 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 All systems reviewed & are unremarkable except as noted in HPI & below Physical Exam Vital Signs Vital Signs - 24 hr 06/29/22 08:42 06/29/22 08:42 06/29/22 08:42 Temperature 37.0 C Temperature Source Oral Pulse Rate 108 H Pulse Rate from SpO2 Sensor Respiratory Rate 32 H Respiratory Effort / Characteristics Spontaneous Non-Labored Respiratory Depth Retractive Respiratory Pattern Tachypnea Regular Blood Pressure 173/76 H Blood Pressure Mean 108 Pulse Oximetry 89 L Oxygen Delivery Method Room Air Room Air Room Air Sepsis Recent Fever Within 48 Hours No Sepsis New/Unexplained Change in Mental Status N/A Sepsis Action Taken by Nursing No Action Required 06/29/22 08:48 06/29/22 09:00 06/29/22 09:00 Temperature Temperature Source Pulse Rate 108 H 108 H Pulse Rate from SpO2 Sensor 108 H 108 H Respiratory Rate 30 H 18 Respiratory Effort / Characteristics Respiratory Depth Respiratory Pattern Blood Pressure 163/127 H Blood Pressure Mean 139 Pulse Oximetry 93 94 Oxygen Delivery Method Sepsis Recent Fever Within 48 Hours Sepsis New/Unexplained Change in Mental Status Sepsis Action Taken by Nursing 06/29/22 09:37 06/29/22 09:56 06/29/22 09:56 Temperature Temperature Source Pulse Rate 106 H Pulse Rate from SpO2 Sensor 104 H 110 H Respiratory Rate 36 H Respiratory Effort / Characteristics Respiratory Depth Respiratory Pattern Blood Pressure 156/118 H Blood Pressure Mean 130 Pulse Oximetry 94 91 Oxygen Delivery Method Sepsis Recent Fever Within 48 Hours Sepsis New/Unexplained Change in Mental Status Sepsis Action Taken by Nursing 06/29/22 10:00 06/29/22 11:54 06/29/22 10:01 Temperature 38.2 C H Temperature Source Oral Pulse Rate 102 H 105 H Pulse Rate from SpO2 Sensor Respiratory Rate 27 H 26 H Respiratory Effort / Characteristics Respiratory Depth Respiratory Pattern Blood Pressure Blood Pressure Mean Pulse Oximetry Oxygen Delivery Method Sepsis Recent Fever Within 48 Hours Sepsis New/Unexplained Change in Mental Status Sepsis Action Taken by Nursing 06/29/22 10:01 06/29/22 10:30 06/29/22 10:30 Temperature Temperature Source Pulse Rate 113 H Pulse Rate from SpO2 Sensor 113 H Respiratory Rate 33 H Respiratory Effort / Characteristics Respiratory Depth Respiratory Pattern Blood Pressure 175/100 H 163/74 H Blood Pressure Mean 125 103 Pulse Oximetry 94 Oxygen Delivery Method Sepsis Recent Fever Within 48 Hours Sepsis New/Unexplained Change in Mental Status Sepsis Action Taken by Nursing 06/29/22 11:00 06/29/22 11:27 06/29/22 11:27 Temperature Temperature Source Pulse Rate 111 H 107 H Pulse Rate from SpO2 Sensor Respiratory Rate 30 H 28 H Respiratory Effort / Characteristics Respiratory Depth Respiratory Pattern Blood Pressure 155/69 H Blood Pressure Mean 97 Pulse Oximetry Oxygen Delivery Method Sepsis Recent Fever Within 48 Hours Sepsis New/Unexplained Change in Mental Status Sepsis Action Taken by Nursing 06/29/22 11:30 06/29/22 11:30 06/29/22 11:43 Temperature Temperature Source Pulse Rate 108 H 107 H Pulse Rate from SpO2 Sensor Respiratory Rate 35 H 30 H Respiratory Effort / Characteristics Respiratory Depth Respiratory Pattern Blood Pressure 137/66 Blood Pressure Mean 89 Pulse Oximetry Oxygen Delivery Method Sepsis Recent Fever Within 48 Hours Sepsis New/Unexplained Change in Mental Status Sepsis Action Taken by Nursing 06/29/22 11:43 Temperature Temperature Source Pulse Rate Pulse Rate from SpO2 Sensor Respiratory Rate Respiratory Effort / Characteristics Respiratory Depth Respiratory Pattern Blood Pressure 150/72 H Blood Pressure Mean 98 Pulse Oximetry Oxygen Delivery Method Sepsis Recent Fever Within 48 Hours Sepsis New/Unexplained Change in Mental Status Sepsis Action Taken by Nursing GENERAL: alert, well appearing, well nourished, no distress, non-toxic EYE EXAM: normal conjunctiva, PERRL and EOM's grossly intact OROPHARYNX: no exudate, no erythema, lips, buccal mucosa, and tongue normal and mucous membranes are moist NECK: supple, no nuchal rigidity, no adenopathy, non-tender LUNGS: Clear but decreased to auscultation. Normal chest wall mechanics, no w/r/r, increased work of breathing, tachypnea, oxygen via NC HEART: no murmurs, S1 normal and S2 normal ABDOMEN: abdomen soft, non-tender, normo-active bowel sounds, no masses, no rebound or guarding. BACK: Back is symmetrical on inspection and there is no deformity, no midline tenderness, no CVA tenderness. SKIN: no rashes and no bruising UPPER EXTREMITIES: upper extremities are grossly normal. FROM, nml pulses b/l. LOWER EXTREMITIES: No pitting edema. FROM, nml pulses b/l. NEURO EXAM: Normal sensorium, cranial nerves II-XII grossly intact, normal speech, no gross weakness of arms, no gross weakness of legs. Gross sensation intact. Course Course 1102: Family now bedside states he did have a mild fever over the last few days and this morning they thought he complained of feeling very hot. 1200: I was alerted by nursing staff the patient had now developed a fever and became more tachycardic and tachypneic. Family feels he is confused compared to prior which she typically will be whenever he develops a fever. They confirm he does not have oxygen at home to wear and he does still appear short of breath to them. They state patient did recently take a course of prednisone for some swelling in his left knee. They still feel he has swelling there. Administered Medications Atorvastatin Calcium (Atorvastatin 40 Mg Tab) 40 mg PO HS ADOLFO Stop: 07/29/22 20:59 Last Admin: 06/30/22 20:35 Dose: 40 mg Documented By: Admin: 06/29/22 20:49 Dose: 40 mg Documented By: ANGEL Fluticasone Furoate (Fluticasone Furoate 100mcg 14 Puffs/Inhaler) 1 puffs INH QAM ADOLFO Stop: 07/30/22 08:59 Last Admin: 07/01/22 08:30 Dose: 1 puffs Documented By: Admin: 06/30/22 07:28 Dose: 1 puffs Documented By: DIMITRI Ceftriaxone Sodium 2,000 mg/ (Dextrose) 70 mls @ 100 mls/hr IV DAILY ADOLFO; Protocol Stop: 07/02/22 08:59 Last Infusion: 07/01/22 09:22 Dose: 0 mls/hr Documented By: Admin: 07/01/22 08:30 Dose: 100 mls/hr Documented By: Infusion: 06/30/22 08:15 Dose: 0 mls/hr Documented By: Admin: 06/30/22 07:31 Dose: 100 mls/hr Documented By: DIMITRI Levetiracetam (Levetiracetam 500 Mg Tab) 500 mg PO BID ADOLFO Stop: 07/29/22 20:59 Last Admin: 07/01/22 08:29 Dose: 500 mg Documented By: Admin: 06/30/22 20:35 Dose: 500 mg Documented By: Admin: 06/30/22 07:28 Dose: 500 mg Documented By: Admin: 06/29/22 20:50 Dose: 500 mg Documented By: ANGEL Pantoprazole Sodium (Pantoprazole 40 Mg Tab) 40 mg PO DAILYBB [facility]; Protocol Stop: 07/30/22 06:29 Last Admin: 07/01/22 05:47 Dose: Not Given Documented By: Admin: 06/30/22 05:58 Dose: 40 mg Documented By: BETH Rivaroxaban (Rivaroxaban 20 Mg Tab) 20 mg PO QDD [facility] Stop: 07/30/22 16:29 Last Admin: 07/01/22 17:28 Dose: 20 mg Documented By: Admin: 06/30/22 16:09 Dose: 20 mg Documented By: DIMITRI Tramadol HCl (Tramadol Hcl 50 Mg Tablet) 50 mg PO Q6H PRN PRN Reason: Pain Stop: 07/29/22 14:39 Last Admin: 06/30/22 14:29 Dose: 50 mg Documented By: DIMITRI Umeclidinium/Vilanterol (Umeclidinium/Vilanterol 62.5/25mcg 7 Puffs/Inhaler) 1 puffs INH QAM ADOLFO Stop: 07/30/22 08:59 Last Admin: 07/01/22 08:30 Dose: 1 puffs Documented By: Admin: 06/30/22 07:28 Dose: 1 puffs Documented By: DIMITRI Discontinued Medications Albuterol (Albut/Ipratrop 3mg/0.5mg Neb 3 Ml Vial) 3 ml NEB NOW STA; Protocol Stop: 06/29/22 09:10 Last Admin: 06/29/22 10:19 Dose: 3 ml Documented By: TIANNA Albuterol (Albut/Ipratrop 3mg/0.5mg Neb 3 Ml Vial) 3 ml NEB NOW STA; Protocol Stop: 06/29/22 10:55 Last Admin: 06/29/22 11:45 Dose: 3 ml Documented By: TIANNA Albuterol (Albut/Ipratrop 3mg/0.5mg Neb 3 Ml Vial) 3 ml INH Q6R ADOLFO; Protocol Stop: 07/29/22 18:59 Last Admin: 06/30/22 19:04 Dose: 3 ml Documented By: Admin: 06/30/22 12:59 Dose: 3 ml Documented By: Admin: 06/30/22 06:57 Dose: 3 ml Documented By: Admin: 06/30/22 00:36 Dose: 3 ml Documented By: Admin: 06/29/22 19:12 Dose: Not Given Documented By: GORGE Bisacodyl (Bisacodyl 10 Mg Supp) 10 mg MI NOW STA Stop: 06/29/22 14:41 Last Admin: 06/29/22 15:14 Dose: 10 mg Documented By: SHAHAB Doxycycline Hyclate (Doxycycline Hyclate 100 Mg Cap) 100 mg PO NOW STA Stop: 06/29/22 10:55 Last Admin: 06/29/22 11:28 Dose: 100 mg Documented By: TIANNA Haloperidol Lactate (Haloperidol Lactate 5 Mg/Ml 1 Ml Vial) 5 mg IM NOW STA Stop: 07/01/22 00:25 Last Admin: 07/01/22 00:44 Dose: 5 mg Documented By: TICO Magnesium Sulfate/Dextrose (Magnesium Sulfate / D5w) 1 gm in 100 mls @ 100 mls/hr IV NOW STA Stop: 06/29/22 12:01 Last Infusion: 06/29/22 13:17 Dose: 0 mls/hr Documented By: Admin: 06/29/22 11:28 Dose: 100 mls/hr Documented By: TIANNA Sodium Chloride (Nss 1000ml) 1,000 mls @ 250 mls/hr IV .Q4H ADOLFO Stop: 07/29/22 11:14 Last Infusion: 06/29/22 15:45 Dose: 0 mls/hr Documented By: Admin: 06/29/22 11:45 Dose: 250 mls/hr Documented By: TIANNA Magnesium Sulfate/Dextrose (Magnesium Sulfate / D5w) 1 gm in 100 mls @ 50 mls/hr IV Q2H ADOLFO Stop: 06/29/22 16:29 Last Infusion: 06/29/22 19:20 Dose: 0 mls/hr Documented By: Admin: 06/29/22 16:08 Dose: Not Given Documented By: Admin: 06/29/22 13:18 Dose: 50 mls/hr Documented By: TIANNA Acetaminophen (Ofirmev) 1,000 mg in 100 mls @ 400 mls/hr IV NOW STA Stop: 06/29/22 12:52 Last Infusion: 06/29/22 13:19 Dose: 0 mls/hr Documented By: Admin: 06/29/22 13:01 Dose: 400 mls/hr Documented By: TIANNA Ceftriaxone Sodium (Rocephin) 2,000 mg in 70 mls @ 140 mls/hr IV NOW ONE Stop: 06/29/22 14:29 Last Infusion: 06/29/22 15:44 Dose: 0 mls/hr Documented By: Admin: 06/29/22 15:14 Dose: 140 mls/hr Documented By: SHAHAB Lactated Ringer's (Lr) 1,000 mls @ 90 mls/hr IV .Q11H7M ADOLFO Stop: 06/30/22 06:00 Last Infusion: 06/30/22 01:20 Dose: 0 mls/hr Documented By: Admin: 06/29/22 23:15 Dose: Not Given Documented By: Admin: 06/29/22 15:18 Dose: 90 mls/hr Documented By: SHAHAB Ioversol (Optiray 300 500ml) 95 ml IV ONCE ONE Stop: 06/29/22 14:21 Last Admin: 06/29/22 14:08 Dose: 95 ml Documented By: NED Methylprednisolone (Methylprednisolone 125 Mg/2 Ml Vial) 60 mg IV NOW STA Stop: 06/29/22 10:55 Last Admin: 06/29/22 11:28 Dose: 60 mg Documented By: TIANNA Olanzapine (Olanzapine 10 Mg/2.1 Ml Sdv) 5 mg IM NOW STA Stop: 07/01/22 01:20 Last Admin: 07/01/22 01:51 Dose: 5 mg Documented By: TICO Rivaroxaban (Rivaroxaban 20 Mg Tab) 20 mg PO ONE ONE Stop: 06/29/22 13:16 Last Admin: 06/29/22 13:23 Dose: 20 mg Documented By: SHAHAB Medical Decision Making Differential Diagnosis Differential diagnoses includes but is not limited to pneumonia, bronchitis, COPD/Asthma exacerbation, pneumothorax, pulmonary embolism, congestive heart failure, acute coronary syndrome Medical Records Attestation: I reviewed the patient's medical records. Home Medications Current Medication List: was personally reviewed by me Laboratory Data Attestation: I reviewed the patient's lab results. Result diagrams: 07/01/22 07:04 07/01/22 07:04 Lab Results 06/29/22 06/29/22 06/29/22 Range/Units 09:46 09:46 09:46 WBC 12.44 H (4.8-10.8) K/ul RBC 4.83 (4.63-6.08) M/uL Hgb 13.6 L (14.0-18.0) g/dl Hct 40.6 (40.1-51.0) % MCV 84.1 (80.0-100.0) fL MCH 28.2 (25.0-34.0) pg MCHC 33.5 (32.0-36.0) g/dL RDW Std Deviation 41.6 (36.4-46.3) fL RDW Coeff of [place] 13.5 (11.5-14.5) % Plt Count 196 (130-400) K/uL MPV 9.6 (9.4-12.4) fL Immature Gran % (Auto) 0.4 % Neut % (Auto) 85.9 % Lymph % (Auto) 5.9 % [place] % (Auto) 7.5 % Eos % (Auto) 0.1 % Baso % (Auto) 0.2 % Neut # (Auto) 10.70 H (1.4-6.5) K/uL Lymph # (Auto) 0.73 L (1.2-3.4) K/uL [place] # (Auto) 0.93 H (0.24-0.82) K/uL Eos # (Auto) 0.01 (0-0.50) K/uL Baso # (Auto) 0.02 (0-0.2) K/uL Immature Gran # (Auto) 0.05 H (0.00-0.02) K/uL ESR (0-20) mm/hr ABG pH (7.35-7.45) ABG pCO2 (35-46) mmHg ABG pO2 (80-95) mmHg ABG HCO3 (19-24) mmol/L ABG O2 Saturation (90-95) % ABG Base Excess (-9-1.8) mEq/L Arben Test (Pos) Oxygen Given Sodium 144 (136-145) mmol/L Potassium 3.2 L (3.5-5.1) mmol/L Chloride 107 (98-107) mmol/L Carbon Dioxide 27 (21-32) mmol/L Anion Gap 10 (3-11) BUN 31 H (6-23) mg/dl Creatinine 0.90 (0.6-1.4) mg/dl Est Cr Clr Drug Dosing 86.9 ml/min Est GFR ( Amer) 95.8 ml/min Est GFR (Non-Af Amer) 82.7 ml/min BUN/Creatinine Ratio 34.4 H (10-20) Glucose 104 H (70-99(Fasting)) mg/dl Lactate (0.4-2.0) mmol/L Calcium 8.9 (8.5-10.1) mg/dl Magnesium 1.6 L (1.7-2.4) mg/dl Total Bilirubin 0.8 (0.2-1.0) mg/dl AST 14 (13-39) U/L ALT 12 (7-52) U/L Alkaline Phosphatase 81 (34-104) U/L Troponin I High Sens 9.9 (0-20) pg/ml C-Reactive Protein (0-0.5) mg/dl B-Natriuretic Peptide 97 (0-100) pg/ml Total Protein 6.4 (6.0-8.3) gm/dl Albumin 4.0 (3.4-5.0) gm/dl Globulin 2.4 L (2.5-4.0) gm/dl Albumin/Globulin Ratio 1.7 (0.9-2) Lipase 4 L (11-82) U/L Procalcitonin (0-0.5) ng/ml Urine Color Urine Appearance (Clear) Urine pH (4.5-7.5) Ur Specific [place] (1.000-1.030) Urine Protein (Negative) Urine Glucose (UA) (Negative) Urine Ketones (Negative) Urine Blood (Negative) Urine Nitrite (Negative) Urine Bilirubin (Negative) Urine Urobilinogen (Negative) Ur Leukocyte Esterase (Negative) SARS-CoV-2 (PCR) (Negative) Influenza Type A (PCR) (Neg) Influenza Type B (PCR) (Neg) RSV (RT-PCR) (Neg) 06/29/22 06/29/22 06/29/22 Range/Units 09:46 09:46 09:54 WBC (4.8-10.8) K/ul RBC (4.63-6.08) M/uL Hgb (14.0-18.0) g/dl Hct (40.1-51.0) % MCV (80.0-100.0) fL MCH (25.0-34.0) pg MCHC (32.0-36.0) g/dL RDW Std Deviation (36.4-46.3) fL RDW Coeff of [place] (11.5-14.5) % Plt Count (130-400) K/uL MPV (9.4-12.4) fL Immature Gran % (Auto) % Neut % (Auto) % Lymph % (Auto) % [place] % (Auto) % Eos % (Auto) % Baso % (Auto) % Neut # (Auto) (1.4-6.5) K/uL Lymph # (Auto) (1.2-3.4) K/uL [place] # (Auto) (0.24-0.82) K/uL Eos # (Auto) (0-0.50) K/uL Baso # (Auto) (0-0.2) K/uL Immature Gran # (Auto) (0.00-0.02) K/uL ESR 14 (0-20) mm/hr ABG pH 7.49 H (7.35-7.45) ABG pCO2 31 L (35-46) mmHg ABG pO2 74 L (80-95) mmHg ABG HCO3 24 (19-24) mmol/L ABG O2 Saturation 98.4 H (90-95) % ABG Base Excess 1.0 (-9-1.8) mEq/L Arben Test Pos (Pos) Oxygen Given 2L Sodium (136-145) mmol/L Potassium (3.5-5.1) mmol/L Chloride (98-107) mmol/L Carbon Dioxide (21-32) mmol/L Anion Gap (3-11) BUN (6-23) mg/dl Creatinine (0.6-1.4) mg/dl Est Cr Clr Drug Dosing ml/min Est GFR ( Amer) ml/min Est GFR (Non-Af Amer) ml/min BUN/Creatinine Ratio (10-20) Glucose (70-99(Fasting)) mg/dl Lactate (0.4-2.0) mmol/L Calcium (8.5-10.1) mg/dl Magnesium (1.7-2.4) mg/dl Total Bilirubin (0.2-1.0) mg/dl AST (13-39) U/L ALT (7-52) U/L Alkaline Phosphatase (34-104) U/L Troponin I High Sens (0-20) pg/ml C-Reactive Protein 1.98 H (0-0.5) mg/dl B-Natriuretic Peptide (0-100) pg/ml Total Protein (6.0-8.3) gm/dl Albumin (3.4-5.0) gm/dl Globulin (2.5-4.0) gm/dl Albumin/Globulin Ratio (0.9-2) Lipase (11-82) U/L Procalcitonin (0-0.5) ng/ml Urine Color Urine Appearance (Clear) Urine pH (4.5-7.5) Ur Specific [place] (1.000-1.030) Urine Protein (Negative) Urine Glucose (UA) (Negative) Urine Ketones (Negative) Urine Blood (Negative) Urine Nitrite (Negative) Urine Bilirubin (Negative) Urine Urobilinogen (Negative) Ur Leukocyte Esterase (Negative) SARS-CoV-2 (PCR) (Negative) Influenza Type A (PCR) (Neg) Influenza Type B (PCR) (Neg) RSV (RT-PCR) (Neg) 06/29/22 06/29/22 06/29/22 Range/Units 11:50 12:15 12:22 WBC (4.8-10.8) K/ul RBC (4.63-6.08) M/uL Hgb (14.0-18.0) g/dl Hct (40.1-51.0) % MCV (80.0-100.0) fL MCH (25.0-34.0) pg MCHC (32.0-36.0) g/dL RDW Std Deviation (36.4-46.3) fL RDW Coeff of [place] (11.5-14.5) % Plt Count (130-400) K/uL MPV (9.4-12.4) fL Immature Gran % (Auto) % Neut % (Auto) % Lymph % (Auto) % [place] % (Auto) % Eos % (Auto) % Baso % (Auto) % Neut # (Auto) (1.4-6.5) K/uL Lymph # (Auto) (1.2-3.4) K/uL [place] # (Auto) (0.24-0.82) K/uL Eos # (Auto) (0-0.50) K/uL Baso # (Auto) (0-0.2) K/uL Immature Gran # (Auto) (0.00-0.02) K/uL ESR (0-20) mm/hr ABG pH (7.35-7.45) ABG pCO2 (35-46) mmHg ABG pO2 (80-95) mmHg ABG HCO3 (19-24) mmol/L ABG O2 Saturation (90-95) % ABG Base Excess (-9-1.8) mEq/L Arben Test (Pos) Oxygen Given Sodium (136-145) mmol/L Potassium (3.5-5.1) mmol/L Chloride (98-107) mmol/L Carbon Dioxide (21-32) mmol/L Anion Gap (3-11) BUN (6-23) mg/dl Creatinine (0.6-1.4) mg/dl Est Cr Clr Drug Dosing ml/min Est GFR ( Amer) ml/min Est GFR (Non-Af Amer) ml/min BUN/Creatinine Ratio (10-20) Glucose (70-99(Fasting)) mg/dl Lactate (0.4-2.0) mmol/L Calcium (8.5-10.1) mg/dl Magnesium (1.7-2.4) mg/dl Total Bilirubin (0.2-1.0) mg/dl AST (13-39) U/L ALT (7-52) U/L Alkaline Phosphatase (34-104) U/L Troponin I High Sens (0-20) pg/ml C-Reactive Protein (0-0.5) mg/dl B-Natriuretic Peptide (0-100) pg/ml Total Protein (6.0-8.3) gm/dl Albumin (3.4-5.0) gm/dl Globulin (2.5-4.0) gm/dl Albumin/Globulin Ratio (0.9-2) Lipase (11-82) U/L Procalcitonin 0.42 (0-0.5) ng/ml Urine Color Yellow Urine Appearance Clear (Clear) Urine pH 5.0 (4.5-7.5) Ur Specific [place] 1.036 H (1.000-1.030) Urine Protein Negative (Negative) Urine Glucose (UA) Negative (Negative) Urine Ketones Trace H (Negative) Urine Blood Negative (Negative) Urine Nitrite Negative (Negative) Urine Bilirubin Negative (Negative) Urine Urobilinogen Negative (Negative) Ur Leukocyte Esterase Negative (Negative) SARS-CoV-2 (PCR) NEGATIVE (Negative) Influenza Type A (PCR) Negative (Neg) Influenza Type B (PCR) Negative (Neg) RSV (RT-PCR) Negative (Neg) 06/29/22 Range/Units 12:31 WBC (4.8-10.8) K/ul RBC (4.63-6.08) M/uL Hgb (14.0-18.0) g/dl Hct (40.1-51.0) % MCV (80.0-100.0) fL MCH (25.0-34.0) pg MCHC (32.0-36.0) g/dL RDW Std Deviation (36.4-46.3) fL RDW Coeff of [place] (11.5-14.5) % Plt Count (130-400) K/uL MPV (9.4-12.4) fL Immature Gran % (Auto) % Neut % (Auto) % Lymph % (Auto) % [place] % (Auto) % Eos % (Auto) % Baso % (Auto) % Neut # (Auto) (1.4-6.5) K/uL Lymph # (Auto) (1.2-3.4) K/uL [place] # (Auto) (0.24-0.82) K/uL Eos # (Auto) (0-0.50) K/uL Baso # (Auto) (0-0.2) K/uL Immature Gran # (Auto) (0.00-0.02) K/uL ESR (0-20) mm/hr ABG pH (7.35-7.45) ABG pCO2 (35-46) mmHg ABG pO2 (80-95) mmHg ABG HCO3 (19-24) mmol/L ABG O2 Saturation (90-95) % ABG Base Excess (-9-1.8) mEq/L Arben Test (Pos) Oxygen Given Sodium (136-145) mmol/L Potassium (3.5-5.1) mmol/L Chloride (98-107) mmol/L Carbon Dioxide (21-32) mmol/L Anion Gap (3-11) BUN (6-23) mg/dl Creatinine (0.6-1.4) mg/dl Est Cr Clr Drug Dosing ml/min Est GFR ( Amer) ml/min Est GFR (Non-Af Amer) ml/min BUN/Creatinine Ratio (10-20) Glucose (70-99(Fasting)) mg/dl Lactate 2.8 H* (0.4-2.0) mmol/L Calcium (8.5-10.1) mg/dl Magnesium (1.7-2.4) mg/dl Total Bilirubin (0.2-1.0) mg/dl AST (13-39) U/L ALT (7-52) U/L Alkaline Phosphatase (34-104) U/L Troponin I High Sens (0-20) pg/ml C-Reactive Protein (0-0.5) mg/dl B-Natriuretic Peptide (0-100) pg/ml Total Protein (6.0-8.3) gm/dl Albumin (3.4-5.0) gm/dl Globulin (2.5-4.0) gm/dl Albumin/Globulin Ratio (0.9-2) Lipase (11-82) U/L Procalcitonin (0-0.5) ng/ml Urine Color Urine Appearance (Clear) Urine pH (4.5-7.5) Ur Specific [place] (1.000-1.030) Urine Protein (Negative) Urine Glucose (UA) (Negative) Urine Ketones (Negative) Urine Blood (Negative) Urine Nitrite (Negative) Urine Bilirubin (Negative) Urine Urobilinogen (Negative) Ur Leukocyte Esterase (Negative) SARS-CoV-2 (PCR) (Negative) Influenza Type A (PCR) (Neg) Influenza Type B (PCR) (Neg) RSV (RT-PCR) (Neg) Imaging Data Radiologist's Impression: Chest X-Ray 06/29/22 09:09 XR chest 1V portable HISTORY: 76 years-old Male sob acute cough with shortness of breath COMPARISON: CTA chest 03/25/2022 TECHNIQUE: Portable AP view of the chest FINDINGS: The cardiac silhouette is upper limits of normal in size. Mild right hemidiaphragmatic elevation. No pneumothorax, pleural effusion, lobar airspace consolidation or overt pulmonary edema. The bones of the chest appear grossly intact. IMPRESSION: Mild right hemidiaphragmatic elevation redemonstrated without acute process. ACT 112: Negative or not required by law. The above report was generated using voice recognition software. It may contain grammatical, syntax or spelling errors. Electronically signed by: Osbaldo Clemons M.D. 06/29/2022 9:53 AM ECG Data Attestation: I personally reviewed and interpreted this ECG as follows: Indication: + SOB/dyspnea Rate (beats per minute): 104 Rhythm: + sinus tachycardia ECG Intervals/blocks: + Right Bundle branch block and + Normal QT ECG [place]: + Normal ECG ST segments: + Nonspecific ST abnormalities MDM Narrative An order was placed for continuous cardiac monitoring. The monitor shows a rate of _98_ with _normal sinus__ rhythm. THis is an elderly male who presents with increased trouble breathing. Patient with COPD and prior CVA causing some deficits. Patient denied pain, admits to fatigue and decreased appetitie. Patient given duo nebs in the ER with some improvement. Patient was noted to be mildly hypoxic on arrival and pt doesn't wear home oxygen. Solumedrol and doxy given also. CXR without obvious PNA. presented to bedside and states patient is more confused and weak compared to normal. She stated she did perform covid home test which was negative. Patient rechecked multiple times while in the ER and was noted to develop a fever with accompanying tachycardia and tachypnea. Given increased confusion and likely underlying respiratory infection and continued need for oxygen via [place], case discussed with hospitalist for additional evaluation and mgmt. I do not suspect ACS, pericardial effusion, pericarditis/myocarditis, occult vascular etiology. I do not strongly suspect PE as patient takes xarelto daily and denies he has missed any doses. Impression & Plan Dyspnea, Acute exacerbation of chronic obstructive pulmonary disease (COPD), Confusion Discharge Plan Visit Data Chief Complaint: Shortness of Breath/Dyspnea Stated Complaint: SOB ED Provider: Petty Marie Discharge Problem: Dyspnea, Acute exacerbation of chronic obstructive pulmonary disease (COPD), Confusion Patient Disposition: Admitted As Inpatient Discharge Instructions Interventions: ED Discharge Assessment Last Done: 06/29/22 14:41
--- NOTE | 2022-06-29 09:54 | XRay Report ---
XR chest 1V portable HISTORY: 76 years-old Male sob acute cough with shortness of breath COMPARISON: CTA chest 03/25/2022 TECHNIQUE: Portable AP view of the chest FINDINGS: The cardiac silhouette is upper limits of normal in size. Mild right hemidiaphragmatic elevation. No pneumothorax, pleural effusion, lobar airspace consolidation or overt pulmonary edema. The bones of t he chest appear grossly intact. IMPRESSION: Mild right hemidiaphragmatic elevation redemonstrated without acute process. ACT 112: Negative or not required by law. The above report was generated using voice recognition software. It may contain grammatical, syntax o r spelling errors. Electronically signed by: Osbaldo Clemons M.D. 06/29/2022 9:53 AM
[2022-06-29 10:09] LABS: Basophils # (auto) 0.02 K/uL (0-0.2); Basophils % (auto) 0.2 %; Eosinophils # (auto) 0.01 K/uL (0-0.50); Eosinophils % (auto) 0.1 %; Hematocrit (blood only) 40.6 % (40.1-51.0); Hemoglobin 13.6 g/dl (14.0-18.0); Immature Granulocytes # (auto) 0.05 K/uL (0.00-0.02); Immature Granulocytes % (auto) 0.4 %; Lymphocytes # (auto) 0.73 K/uL (1.2-3.4); Lymphocytes % (auto) 5.9 %; Mean Corpuscular Hemoglobin 28.2 pg (25.0-34.0); Mean Corpuscular Hgb Conc 33.5 g/dL (32.0-36.0); Mean Corpuscular Volume 84.1 fL (80.0-100.0); Mean Platelet Volume 9.6 fL (9.4-12.4); Monocytes # (auto) 0.93 K/uL (0.24-0.82); Monocytes % (auto) 7.5 %; Neutrophils % (auto) 85.9 %; Platelet Count 196 K/uL (130-400); RDW Coefficient of Variation 13.5 % (11.5-14.5); RDW Standard Deviation 41.6 fL (36.4-46.3); Red Blood Count 4.83 M/uL (4.63-6.08); White Blood Count 12.44 K/ul (4.8-10.8)
[2022-06-29 10:23] LABS: Allen Test Pos (Pos); HCO3 ABG 24 mmol/L (19-24); Oxygen Saturation ABG 98.4 % (90-95); PCO2 ABG 31 mmHg (35-46); PO2 ABG 74 mmHg (80-95); pH ABG 7.49 (7.35-7.45)
[2022-06-29 10:30] LABS: Albumin Globulin Ratio 1.7 (0.9-2); BUN Creatinine Ratio 34.4 (10-20); Bilirubin,Total 0.8 mg/dl (0.2-1.0); Calcium 8.9 mg/dl (8.5-10.1); Creatinine Clr Calc Pharmacy 86.9 ml/min; Est GFR (African American) 95.8 ml/min; Est GFR (Non-African American) 82.7 ml/min; Globulin 2.4 gm/dl (2.5-4.0); Magnesium 1.6 mg/dl (1.7-2.4); Potassium 3.2 mmol/L (3.5-5.1); Total Protein 6.4 gm/dl (6.0-8.3)
[2022-06-29 10:37] LABS: Troponin I High Sensitivity 9.9 pg/ml (0-20)
[2022-06-29] MEDS ORDERED: DOXYCYCLINE HYCLATE 100 MG CAP PO STA (10:54)
[2022-06-29] MEDS ORDERED: methylPREDNISolone 125 MG/2 ML VIAL IV STA (10:54)
[2022-06-29] MEDS ORDERED: MAGNESIUM SULFATE / D5W 1 GM/100 ML BAG IV STA (11:02)
[2022-06-29] MEDS ORDERED: SODIUM CHLORIDE 0.9% 1000ML 1,000 ML IV SCH (11:15)
--- NOTE | 2022-06-29 11:23 | Electrocardiogram Report ---
Test Reason : Blood Pressure : / mmHG Vent. Rate : 104 BPM Atrial Rate : 104 BPM P-R Int : 248 ms QRS Dur : 144 ms QT Int : 392 ms P-R-T Axes : 089 107 -03 degrees QTc Int : 515 ms Poor data quality, interpretation may be adversely affected Sinus tachycardia with 1st degree A-V block Right bundle branch block with repolarization abnormality Diffuse Minor Nonspecific T wave abnormality Abnormal ECG When compared with ECG of 25-MAR-2022 14:20, Nonspecific T wave abnormality now present Confirmed by Harvinder El ([id number]) on 06/29/2022 11:22:57 AM Referred By: SELF Confirmed By:Harvinder El
[2022-06-29 12:35] LABS: Appearance Urine Clear (Clear); Bilirubin Urine Negative (Negative); Blood Urine Negative (Negative); Color Urine Yellow; Glucose Urine UA Negative (Negative); Ketones Urine Trace (Negative); Leukocyte Esterase Urine Negative (Negative); Nitrite Urine Negative (Negative); Protein Urine Negative (Negative); Specific Gravity Urine 1.036 (1.000-1.030); Urobilinogen Urine Negative (Negative)
[2022-06-29] MEDS ORDERED: ACETAMINOPHEN 1,000 MG/100 ML VIAL IV STA (12:38)
[2022-06-29 12:45] LABS: Influenza A virus by PCR Negative (Neg); Influenza B virus by PCR Negative (Neg); RSV by PCR Negative (Neg); SARS CoV2 RNA(COVID-19) InHosp NEGATIVE (Negative)
[2022-06-29] MEDS ORDERED: RIVAROXABAN 20 MG TAB PO ONE (13:15)
[2022-06-29] MEDS: MAGNESIUM SULFATE / D5W 1 GM/100 ML BAG IV SCH ×2 (13:18→16:08)
--- NOTE | 2022-06-29 13:38 | History & Physical Report ---
Date of Service June 29, 2022 Assessment & Plan (1) SIRS (systemic inflammatory response syndrome): Plan: Patient presents with subjective fevers at home, increase dyspnea, reports of swollen left knee, constipation - DDX: Pulmonary source/aspiration vs. GI vs. viral vs. gout/pseudogout vs. hypovolemia vs.atelectasis - SIRS - 4 ; qSOFA- 1 - Lactate 2.8 1 liter in EMD follow recheck- continue with LR overnight - PCT negative - WBC 12 with increase in NLR - Blood cultures pending, UA negative - ESR/CRP pending - Left knee x-ray pending - CT chest/ABD/PEL as above - CXR negative - No tick exposure noted and normal LFTS - No evidence of organ dysfunction - Empiric coverage with Rocephin (2) Chronic obstructive pulmonary disease: Plan: Does not appear to be an acute exacerbation at this time - pulmonary exam without wheeze, sputum change, CXR negative - Will schedule nebulizers q 8 for 24 hours - Continue with Trelegy/equivalent - Will not continue steroid therapy at this time (3) 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: Plan: Remains with left sided weakness - is on Keppra for his myoclonus jerking - continue - continue Xarelto - continue atorvastatin - hold coq10/omega 3 fatty acids (4) HEYDI (obstructive sleep apnea): Plan: Continue CPAP autopap (5) PAF (paroxysmal atrial fibrillation): Plan: Continue Xarelto - replete mag - follow electrolytes - not on rate control agent at home (6) Hypertension: Plan: As above (7) Hypercholesterolemia: Plan: Continue with atorvastatin (8) Depression: Plan: Continue sertraline (9) Myoclonic disorder: Plan: As above continue with Keppra (10) Hypomagnesemia: Plan: Mag 1.6 - replete History of Present Illness Primary Care Provider: Lita Najera, DO 76 YOM with medical history of: CVA (2019) with residual left sided weakness, COPD, HEYDI, HTN, HLD, AFIB(Xarelto), myoclonic disorder, DMII, Depression, myoclonic jerks (on Keppra), GERD. Patient comes to the EMD today for complaints of dyspnea at home, fevers, chills. This has been ongoing for the past 2-3 days, but endorses that he normally has increase in his "jerks", then gets a fever and increase in his respiratory rate. Patient has not had a BM if 5 days as well as noting some let sided knee warmth/redness that comes on at night. No tick exposure that is known, no time outside, no dental appointments or recent teeth extraction. In the EMD the patient was noted to be febrile with tachypnea/tachycardia normal blood pressure. He has not missed a dose of his Xarelto except this morning (this will be given now), routine labs were initially drawn and was treated as COPD exacerbation for some hypoxia. CXR negative for infiltrate or opacity but low lung volume, ABG not hypercarbic. He is noted to have elevated WBC count, Increase in NLR, and elevated lactate level. UA negative, Flu/RSV/COVID negative. He was given 1 dose of Doxycycline in the EMD, blood cultures were then drawn. Patient will be admitted for SIRS workup and further search for source of the above. CT chest and CT ABD/Pel with IV contrast will be obtained. COVID/RSV/FLU: NEGATIVE Allergies Allergy/AdvReac Type Severity Reaction Status Date / Time fluticasone Allergy Mild Hives Verified 04/12/22 13:49 salmeterol Allergy Mild Hives Verified 04/12/22 13:49 Home Medications Medication Instructions Recorded Confirmed Type acetaminophen 650 mg 650 mg PO Q8H PRN Fever 02/18/20 04/12/22 History tablet,extended release (Tylenol Arthritis Pain) rivaroxaban 20 mg tablet (Xarelto) 20 mg PO QAM 10/19/20 04/12/22 History albuterol sulfate 90 mcg/actuation 2 puff inhalation Q4H PRN 07/13/21 04/12/22 Rx aerosol inhaler Shortness Of Breath #18 grams resveratrol 50 mg capsule 50 mg PO QAM 07/13/21 04/12/22 History cholecalciferol (vitamin D3) 125 125 mcg PO QAM 07/25/21 04/12/22 History mcg (5,000 unit) capsule coQ10 (ubiquinol) 200 mg capsule 200 mg PO QAM 07/25/21 04/12/22 History omega-3 fatty acids-fish oil 360 1 cap PO BID 07/25/21 04/12/22 History mg-1,200 mg capsule Auto Titrating CPAP #1 ea 08/01/21 04/12/22 Rx CPAP Machine #1 ea 08/04/21 04/12/22 Rx CPAP Supplies #1 ea 08/04/21 04/12/22 Rx ipratropium 0.5 mg-albuterol 3 mg 3 ml inhalation Q4H PRN Wheezing 10/02/21 04/12/22 Rx (2.5 mg base)/3 mL nebulization #360 mL soln guaifenesin 600 mg tablet, 600 mg PO BID 11/23/21 04/12/22 History extended release 12 hr (Mucinex) fluticasone fur. 100 mcg-umeclid 1 inh inhalation QAM #60 ea 01/26/22 04/12/22 Rx 62.5 mcg-vilant 25 mcg inhalat.powder (Trelegy Ellipta) psyllium 1 packet PO DAILY PRN Constipation 03/22/22 04/12/22 History fexofenadine [Shilpi Allergy] PO 04/12/22 04/12/22 History levetiracetam 500 mg tablet 500 mg PO BID 90 days #180 tabs 05/18/22 Rx sertraline 100 mg tablet See Rx Instructions .Route 06/07/22 Rx .COMPLEX #30 tabs atorvastatin 40 mg tablet 40 mg PO HS #90 tabs 06/11/22 Rx omeprazole 40 mg capsule,delayed 40 mg PO DAILYBB #90 caps 06/21/22 Rx release prednisone 20 mg tablet 40 mg PO DAILY 5 days #10 tabs 06/26/22 Rx tramadol 50 mg tablet 50 mg PO Q6H PRN Pain #30 tabs 06/26/22 Rx Past Med/Surg History Medical History Acute blood loss anemia Acute embolic stroke (~02/2020) 12/2019 secondary to afib [facility] Acute ischemic stroke had multiple from testing, 12/2019 was last one will start xarelto after Dr. Elena removes Peg tube Arthritis Benign localized prostatic hyperplasia with lower urinary tract symptoms (LUTS) CAD (coronary artery disease) Chronic obstructive pulmonary disease Diabetes mellitus Elevated PSA Factor VIII inhibitor disorder Dr. 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, including can thus PAC (premature atrial contraction) PAF (paroxysmal atrial fibrillation) Paroxysmal SVT (supraventricular tachycardia) Pulmonary embolism Respiratory failure Urinary incontinence Surgical History H/O knee surgery History of bronchoscopy History of cardiac catheterization (~05/01/10) 05/01/2010-PCI of OM 2 with CAROLINE History of sinus surgery PEG (percutaneous endoscopic gastrostomy) status (~12/2019) placed due to stroke and then had bleeding after PEG tube insertion was sent to [facility] and found weak vessel in small bowel and clamped it had blood transfusion Status post insertion of percutaneous endoscopic gastrostomy (PEG) tube Family History Mother , in her 70s of an CO Heart disease Hypertension Father , in his late 60s of pulmonary issues Emphysema, unspecified Hearing loss Grandfather Stroke Denies family history of Ovarian cancer Prostate cancer Breast cancer Lung cancer Colorectal cancer Cancer Asthma Social History Smoking Status: Former smoker Tobacco Type: Cigarettes Age Started Using Tobacco: 15; Age Quit Using Tobacco: 44; packs per day: 2; Years Smoked: 29; Cigarettes Per Day: 1.5 PPD; Second Hand Exposure: No; Do You Dip or Chew Tobacco: No; Tobacco Cessation Education Requested by Patient: No Hx Alcohol Use: Yes Alcohol type: beer Hx Substance Use: No Preferred Language: Lithuanian Communication Ability: Impaired Visual Impairment: No Limitations Hearing Ability: Use of Hearing Aid Aquarium Specialist Required: No Beliefs That Will Affect Care: None marital status: Single Current Living Situation: Spouse Current Living Situation Comment: Home w/ significant other, Tammy Hernandez current occupational status: retired 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 [employer] How many Children do You have: 1 other: Retired age 52 Feels Safe at Home: Yes Childhood Exposure to Second-Hand Smoke: Yes Diet Comment: regular caffeine: Yes during the past year weight has: remained stable Dental Care, Regularly: Yes Physical Activity Frequency: Does not Exercise Seatbelt Use: always Sunscreen Use: No Assistive Devices: BiPap and Walker Review of Systems Review of Systems: REVIEW OF SYSTEMS: Constitutional: (+) fever, sweats or chills Eyes: No diplopia, no worsening or blurred vision, no ear pain ENT: normal hearing, no trouble swallowing, no pain Respiratory: (+) dyspnea, no cough, sputum, Cardiovascular: No chest pain, tightness or palpitations Abdomen: (+) constipation, No pain, nausea, vomiting, diarrhea Musculoskeletal: (+) left knee giving out, left side sciatic pain, joint pain, calf pain, swelling Neurologic: (+) balance problem with walking following stroke and left meniscus removal, Psychiatric: (+) depression, No anxiety Skin: No rash or itch Physical Exam Physical Exam: PHYSICAL EXAM: General: awake, alert, no apparent distress Head: Normocephalic, atraumatic ENT: PERRL, EOMI, no pharyngeal exudate, mucous membranes moist Neuro: AAO x 3, speech clear and appropriate, overall 3-4/5 strength to bilateral extremities, left side weaker than on right, no focal worsening, speech is slow but appropriate, no headaches or seizures, tremor to right side Chest: equal rise and fall of the chest, no accessory muscle use, no heaves or thrills, Clear to auscultation, on room air, Cardiac: Regular rate and rhythm, telemetry reviewed- sinus with PAC, skin warm dry, cap refill <3 seconds, peripheral pulses +2 no JVD, no murmur, no edema GI: NABS x 4 quadrants, softly distended, nontender to palpation, umbilical hernia soft, : Spontaneously voiding, no pain, no CVA tenderness, MSK: Knees not swollen, no pain with movement, no laxity with varus/valgus movement, negative ballottement Psych: Normal mood and affect Skin: no open areas on feet, buttocks, groin, no erythema to scrotum or back Results & Data Results & Data ([facility]) Vital Signs (Past 12 Hours) Vital Signs Temp Pulse Resp BP Pulse Ox O2 Del Method 06/29/22 11:43 150/72 H 06/29/22 11:43 107 H 30 H 06/29/22 11:30 108 H 35 H 06/29/22 11:30 137/66 06/29/22 11:27 107 H 28 H 06/29/22 11:27 155/69 H 06/29/22 11:00 111 H 30 H 06/29/22 10:30 113 H 33 H 94 06/29/22 10:30 163/74 H 06/29/22 10:01 175/100 H 06/29/22 10:01 105 H 26 H 06/29/22 11:54 38.2 C H 06/29/22 10:00 102 H 27 H 06/29/22 09:56 156/118 H 06/29/22 09:56 106 H 36 H 91 06/29/22 09:37 94 06/29/22 09:00 108 H 18 94 06/29/22 09:00 163/127 H 06/29/22 08:48 108 H 30 H 93 06/29/22 08:42 Room Air 06/29/22 08:42 Room Air 06/29/22 08:42 37.0 C 108 H 32 H 173/76 H 89 L Room Air Laboratory Results Abnormal lab results 06/29/22 06/29/22 06/29/22 Range/Units 09:46 09:46 09:54 WBC 12.44 H (4.8-10.8) K/ul Hgb 13.6 L (14.0-18.0) g/dl Neut # (Auto) 10.70 H (1.4-6.5) K/uL Lymph # (Auto) 0.73 L (1.2-3.4) K/uL [place] # (Auto) 0.93 H (0.24-0.82) K/uL Immature Gran # (Auto) 0.05 H (0.00-0.02) K/uL ABG pH 7.49 H (7.35-7.45) ABG pCO2 31 L (35-46) mmHg ABG pO2 74 L (80-95) mmHg ABG O2 Saturation 98.4 H (90-95) % Potassium 3.2 L (3.5-5.1) mmol/L BUN 31 H (6-23) mg/dl BUN/Creatinine Ratio 34.4 H (10-20) Glucose 104 H (70-99(Fasting)) mg/dl Lactate (0.4-2.0) mmol/L Magnesium 1.6 L (1.7-2.4) mg/dl Globulin 2.4 L (2.5-4.0) gm/dl Lipase 4 L (11-82) U/L Ur Specific [place] (1.000-1.030) Urine Ketones (Negative) 06/29/22 06/29/22 Range/Units 12:15 12:31 WBC (4.8-10.8) K/ul Hgb (14.0-18.0) g/dl Neut # (Auto) (1.4-6.5) K/uL Lymph # (Auto) (1.2-3.4) K/uL [place] # (Auto) (0.24-0.82) K/uL Immature Gran # (Auto) (0.00-0.02) K/uL ABG pH (7.35-7.45) ABG pCO2 (35-46) mmHg ABG pO2 (80-95) mmHg ABG O2 Saturation (90-95) % Potassium (3.5-5.1) mmol/L BUN (6-23) mg/dl BUN/Creatinine Ratio (10-20) Glucose (70-99(Fasting)) mg/dl Lactate 2.8 H* (0.4-2.0) mmol/L Magnesium (1.7-2.4) mg/dl Globulin (2.5-4.0) gm/dl Lipase (11-82) U/L Ur Specific [place] 1.036 H (1.000-1.030) Urine Ketones Trace H (Negative) Diagnostic Findings Chest X-Ray 06/29/22 09:09 XR chest 1V portable HISTORY: 76 years-old Male sob acute cough with shortness of breath COMPARISON: CTA chest 03/25/2022 TECHNIQUE: Portable AP view of the chest FINDINGS: The cardiac silhouette is upper limits of normal in size. Mild right hemidiaphragmatic elevation. No pneumothorax, pleural effusion, lobar airspace consolidation or overt pulmonary edema. The bones of the chest appear grossly intact. IMPRESSION: Mild right hemidiaphragmatic elevation redemonstrated without acute process. ACT 112: Negative or not required by law. The above report was generated using voice recognition software. It may contain grammatical, syntax or spelling errors. Electronically signed by: Osbaldo Clemons M.D. 06/29/2022 9:53 AM Abdomen/Pelvis CT 06/29/22 13:02 CT SCAN OF THE CHEST, ABDOMEN, AND PELVIS WITH IV CONTRAST CLINICAL HISTORY: Dyspnea. Fever. Abnormal urinalysis. Constipation. COMPARISON STUDY: CT scans of the chest, abdomen, and pelvis dated 03/25/2022. TECHNIQUE: Following the IV administration of 95 of Optiray 320, CT scan of the chest, abdomen, and pelvis was performed from the thoracic inlet to the proximal femora. Images are reviewed in the axial, sagittal, and coronal planes. IV contrast was administered without complication. A dose lowering technique was utilized adhering to the principles of ALARA. The examinations are degraded by motion artifact. CT DOSE: 1954.80 mGy.cm FINDINGS: CHEST: Thyroid: Normal in size and heterogeneous in attenuation. Thoracic aorta: There is atherosclerotic calcification of the thoracic aorta, which is normal in caliber and demonstrates standard 3-vessel arch anatomy. No dissection is seen. Pulmonary vasculature: The pulmonary trunk is normal in caliber. There are no filling defects identified in the central pulmonary vessels to indicate pulmonary embolus. Note that this examination was not protocoled for evaluation of the pulmonary arteries. Heart: The heart is normal in size and without pericardial effusion. The coronary arteries are densely calcified. Lungs and pleural spaces: Evaluation of the lung parenchyma is significantly compromised by motion artifact. There is patchy airspace consolidation at both lung bases in the lower lobes and lingula, right greater than left. This is typical for an infectious/inflammatory pneumonitis. No pleural effusion is seen. Mediastinum: There is no mediastinal lymphadenopathy. Radha: Clear. Axillae: There is no axillary lymphadenopathy. Bony thorax: The skeletal structures are osteopenic. Spondylotic change is noted in the thoracic spine. No lytic or blastic lesions are identified. There are subacute-appearing left posterior rib fractures. ABDOMEN AND PELVIS: Liver: The contrast-enhanced liver is normal in size, contour, and attenuation. There is no intra- or extrahepatic biliary ductal dilatation. The hepatic veins and portal veins are patent. Gallbladder: The gallbladder is distended but otherwise normal in appearance. Spleen: Normal in size and attenuation. Pancreas: Moderately atrophic and grossly unremarkable. Adrenal glands: Unremarkable. Kidneys: The contrast enhanced kidneys demonstrate mild cortical atrophy and are without hydronephrosis. The kidneys enhance symmetrically. Abdominal vasculature: The abdominal aorta is normal in course and caliber noting moderate atherosclerotic calcification. Bowel: There is moderate constipation. No bowel obstruction is seen. There is mild colonic diverticulosis without CT evidence of acute diverticulitis. The appendix is well-visualized and normal. Peritoneum: There is no intraperitoneal free air or abdominal ascites. There is a large fat-containing umbilical hernia. Lymphadenopathy: None. Pelvic viscera: The bladder is decompressed and grossly unremarkable. The prostate and seminal vesicles are normal as imaged. There are bilateral fat- containing inguinal hernias. Skeletal structures: The skeletal structures are osteopenic. There is a chronic compression deformity of L5. Mild lumbosacral spondylosis is observed. No lytic or blastic lesions are seen. IMPRESSION: 1. Bibasilar airspace consolidation is typical for an infectious/inflammatory pneumonitis. Clinical correlation will be required and radiographic follow-up to resolution is recommended. 2. There are subacute-appearing left posterior rib fractures. 3. No acute infectious or inflammatory findings are identified in the abdomen or pelvis. 4. Moderate constipation. 5. Additional findings as above. ACT 112: Negative or not required by law. Electronically signed by: Gregg Gaston M.D. 06/29/2022 2:[address] 06/29/22 13:41 CT SCAN OF THE CHEST, ABDOMEN, AND PELVIS WITH IV CONTRAST CLINICAL HISTORY: Dyspnea. Fever. Abnormal urinalysis. Constipation. COMPARISON STUDY: CT scans of the chest, abdomen, and pelvis dated 03/25/2022. TECHNIQUE: Following the IV administration of 95 of Optiray 320, CT scan of the chest, abdomen, and pelvis was performed from the thoracic inlet to the proximal femora. Images are reviewed in the axial, sagittal, and coronal planes. IV contrast was administered without complication. A dose lowering technique was utilized adhering to the principles of ALARA. The examinations are degraded by motion artifact. CT DOSE: 1954.80 mGy.cm FINDINGS: CHEST: Thyroid: Normal in size and heterogeneous in attenuation. Thoracic aorta: There is atherosclerotic calcification of the thoracic aorta, which is normal in caliber and demonstrates standard 3-vessel arch anatomy. No dissection is seen. Pulmonary vasculature: The pulmonary trunk is normal in caliber. There are no filling defects identified in the central pulmonary vessels to indicate pulmonary embolus. Note that this examination was not protocoled for evaluation of the pulmonary arteries. Heart: The heart is normal in size and without pericardial effusion. The coronary arteries are densely calcified. Lungs and pleural spaces: Evaluation of the lung parenchyma is significantly compromised by motion artifact. There is patchy airspace consolidation at both lung bases in the lower lobes and lingula, right greater than left. This is typical for an infectious/inflammatory pneumonitis. No pleural effusion is seen. Mediastinum: There is no mediastinal lymphadenopathy. Radha: Clear. Axillae: There is no axillary lymphadenopathy. Bony thorax: The skeletal structures are osteopenic. Spondylotic change is noted in the thoracic spine. No lytic or blastic lesions are identified. There are subacute-appearing left posterior rib fractures. ABDOMEN AND PELVIS: Liver: The contrast-enhanced liver is normal in size, contour, and attenuation. There is no intra- or extrahepatic biliary ductal dilatation. The hepatic veins and portal veins are patent. Gallbladder: The gallbladder is distended but otherwise normal in appearance. Spleen: Normal in size and attenuation. Pancreas: Moderately atrophic and grossly unremarkable. Adrenal glands: Unremarkable. Kidneys: The contrast enhanced kidneys demonstrate mild cortical atrophy and are without hydronephrosis. The kidneys enhance symmetrically. Abdominal vasculature: The abdominal aorta is normal in course and caliber noting moderate atherosclerotic calcification. Bowel: There is moderate constipation. No bowel obstruction is seen. There is mild colonic diverticulosis without CT evidence of acute diverticulitis. The appendix is well-visualized and normal. Peritoneum: There is no intraperitoneal free air or abdominal ascites. There is a large fat-containing umbilical hernia. Lymphadenopathy: None. Pelvic viscera: The bladder is decompressed and grossly unremarkable. The prostate and seminal vesicles are normal as imaged. There are bilateral fat- containing inguinal hernias. Skeletal structures: The skeletal structures are osteopenic. There is a chronic compression deformity of L5. Mild lumbosacral spondylosis is observed. No lytic or blastic lesions are seen. IMPRESSION: 1. Bibasilar airspace consolidation is typical for an infectious/inflammatory pneumonitis. Clinical correlation will be required and radiographic follow-up to resolution is recommended. 2. There are subacute-appearing left posterior rib fractures. 3. No acute infectious or inflammatory findings are identified in the abdomen or pelvis. 4. Moderate constipation. 5. Additional findings as above. ACT 112: Negative or not required by law. Electronically signed by: Gregg Gaston M.D. 06/29/2022 2:34 PM Knee X-Ray 06/29/22 13:52 XR knee LT 1 or 2V routine CLINICAL HISTORY: Left knee pain. COMPARISON: Left knee radiographs February 18, 2020. FINDINGS: Alignment of the left knee is anatomic. No joint effusion. No fracture is present. There is no suspicious osseous lesion. Severe joint space narrowing with extensive osteophytosis of the patellofemoral compartment is noted. There is moderate medial compartment osteoarthritis as well. IMPRESSION: 1. No acute fracture or joint effusion of the left knee. 2. Severe patellofemoral and moderate medial compartment osteoarthritis of the left knee. ACT 112: Negative or not required by law. Electronically signed by: Del Soler M.D. 06/29/2022 2:40 PM Medications Administered Home Medications acetaminophen 650 mg tablet,extended release (Tylenol Arthritis Pain) 650 mg PO Q8H PRN Fever 02/18/20 [History Confirmed 04/12/22] rivaroxaban 20 mg tablet (Xarelto) 20 mg PO QAM 10/19/20 [History Confirmed 04/12/22] albuterol sulfate 90 mcg/actuation aerosol inhaler 2 puff inhalation Q4H PRN Shortness Of Breath #18 grams 07/13/21 [Rx Confirmed 04/12/22] resveratrol 50 mg capsule 50 mg PO QAM 07/13/21 [History Confirmed 04/12/22] cholecalciferol (vitamin D3) 125 mcg (5,000 unit) capsule 125 mcg PO QAM 07/25/21 [History Confirmed 04/12/22] coQ10 (ubiquinol) 200 mg capsule 200 mg PO QAM 07/25/21 [History Confirmed 04/12/22] omega-3 fatty acids-fish oil 360 mg-1,200 mg capsule 1 cap PO BID 07/25/21 [History Confirmed 04/12/22] Auto Titrating CPAP #1 ea 08/01/21 [Rx Confirmed 04/12/22] CPAP Machine #1 ea 08/04/21 [Rx Confirmed 04/12/22] CPAP Supplies #1 ea 08/04/21 [Rx Confirmed 04/12/22] ipratropium 0.5 mg-albuterol 3 mg (2.5 mg base)/3 mL nebulization soln 3 ml inhalation Q4H PRN Wheezing #360 mL 11/29/21 [Rx Confirmed 04/12/22] guaifenesin 600 mg tablet, extended release 12 hr (Mucinex) 600 mg PO BID 11/23/21 [History Confirmed 04/12/22] fluticasone fur. 100 mcg-umeclid 62.5 mcg-vilant 25 mcg inhalat.powder (Trelegy Ellipta) 1 inh inhalation QAM #60 ea 01/26/22 [Rx Confirmed 04/12/22] psyllium 1 packet PO DAILY PRN Constipation 03/22/22 [History Confirmed 04/12/22] fexofenadine [Shilpi Allergy] PO 04/12/22 [History Confirmed 04/12/22] levetiracetam 500 mg tablet 500 mg PO BID 90 days #180 tabs 05/18/22 [Rx] sertraline 100 mg tablet See Rx Instructions .Route .COMPLEX #30 tabs 06/07/22 [Rx] atorvastatin 40 mg tablet 40 mg PO HS #90 tabs 06/11/22 [Rx] omeprazole 40 mg capsule,delayed release 40 mg PO DAILYBB #90 caps 06/21/22 [Rx] prednisone 20 mg tablet 40 mg PO DAILY 5 days #10 tabs 06/26/22 [Rx] tramadol 50 mg tablet 50 mg PO Q6H PRN Pain #30 tabs 06/26/22 [Rx] Active Medications Albuterol (Albut/Ipratrop 3mg/0.5mg Neb 3 Ml Vial) 3 ml NEB NOW STA; Protocol Stop: 06/29/22 10:55 Last Admin: 06/29/22 11:45 Dose: 3 ml Doxycycline Hyclate (Doxycycline Hyclate 100 Mg Cap) 100 mg PO NOW STA Stop: 06/29/22 10:55 Last Admin: 06/29/22 11:28 Dose: 100 mg Magnesium Sulfate/Dextrose (Magnesium Sulfate / D5w) 1 gm in 100 mls @ 100 mls/hr IV NOW STA Stop: 06/29/22 12:01 Last Infusion: 06/29/22 13:17 Dose: Infused Sodium Chloride (Nss 1000ml) 1,000 mls @ 250 mls/hr IV .Q4H ADOLFO Stop: 07/29/22 11:14 Last Admin: 06/29/22 11:45 Dose: 250 mls/hr Magnesium Sulfate/Dextrose (Magnesium Sulfate / D5w) 1 gm in 100 mls @ 50 mls/hr IV Q2H ADOLFO Stop: 06/29/22 16:29 Last Admin: 06/29/22 13:18 Dose: 50 mls/hr Acetaminophen (Ofirmev) 1,000 mg in 100 mls @ 400 mls/hr IV NOW STA Stop: 06/29/22 12:52 Last Infusion: 06/29/22 13:19 Dose: Infused Methylprednisolone (Methylprednisolone 125 Mg/2 Ml Vial) 60 mg IV NOW STA Stop: 06/29/22 10:55 Last Admin: 06/29/22 11:28 Dose: 60 mg Rivaroxaban (Rivaroxaban 20 Mg Tab) 20 mg PO ONE ONE Stop: 06/29/22 13:16 Last Admin: 06/29/22 13:23 Dose: 20 mg ECG Additional Comments: Sinus tachycardia with 1st degree A-V block Right bundle branch block with repolarization abnormality Diffuse Minor Nonspecific T wave abnormality Abnormal ECG When compared with ECG of 25-MAR-2022 14:20, Nonspecific T wave abnormality now present Code Status & VTE Plan Code Status CODE: DNR/DNI VTE: SCDs, Xarelto VTE Prophylaxis Plan VTE Prophylaxis will be ordered: Yes Supervising Physician Co-Signing Physician Notes I supervised ROWAN Browne on this admission. I interviewed and examined the patient independently of him. The plan is as written in his note except for any following changes/exceptions: None 76yo M w/ hx of CVA who presents with SIRS. The patient has had symptoms for 2-3 days, including fevers, confusion, and increasing of his myoclonus. Febrile in the ER. Source is not clear as CXR looks clear, no tick exposure, UA negative, Flu/Covid/RSV negative. Will treat with empiric ceftriaxone and monitor cultures. CT c/a/p does show some possible lower pneumonia as cause. 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
[2022-06-29] MEDS ORDERED: cefTRIAXone SODIUM 2,000 MG/70 ML BAG IV ONE (14:00)
[2022-06-29] MEDS ORDERED: OPTIRAY 300 500mL IV ONE (14:20)
--- NOTE | 2022-06-29 14:35 | CT Scan Report ---
CT SCAN OF THE CHEST, ABDOMEN, AND PELVIS WITH IV CONTRAST CLINICAL HISTORY: Dyspnea. Fever. Abnormal urinalysis. Constipation. COMPARISON STUDY: CT scans of the chest, abdomen, and pelvis dated 03/25/2022. TECHNIQUE: Following the IV administration of 95 of Optiray 320, CT scan of the chest, abdomen, and p lena was performed from the thoracic inlet to the proximal femora. Images are reviewed in the axial, sagittal, and coronal planes. IV contrast was administered without complication. A dose lowering te chnique was utilized adhering to the principles of ALARA. The examinations are degraded by motion art ifact. CT DOSE: 1954.80 mGy.cm FINDINGS: CHEST: Thyroid: Normal in size and heterogeneous in attenuation. Thoracic aorta: There is atherosclerotic calcification of the thoracic aorta, which is normal in papito john and demonstrates standard 3-vessel arch anatomy. No dissection is seen. Pulmonary vasculature: The pulmonary trunk is normal in caliber. There are no filling defects identif ied in the central pulmonary vessels to indicate pulmonary embolus. Note that this examination was no t protocoled for evaluation of the pulmonary arteries. Heart: The heart is normal in size and without pericardial effusion. The coronary arteries are densel y calcified. Lungs and pleural spaces: Evaluation of the lung parenchyma is significantly compromised by motion ar tifact. There is patchy airspace consolidation at both lung bases in the lower lobes and lingula, rig ht greater than left. This is typical for an infectious/inflammatory pneumonitis. No pleural effusion is seen. Mediastinum: There is no mediastinal lymphadenopathy. Radha: Clear. Axillae: There is no axillary lymphadenopathy. Bony thorax: The skeletal structures are osteopenic. Spondylotic change is noted in the thoracic spin e. No lytic or blastic lesions are identified. There are subacute-appearing left posterior rib fractu res. ABDOMEN AND PELVIS: Liver: The contrast-enhanced liver is normal in size, contour, and attenuation. There is no intra- or extrahepatic biliary ductal dilatation. The hepatic veins and portal veins are patent. Gallbladder: The gallbladder is distended but otherwise normal in appearance. Spleen: Normal in size and attenuation. Pancreas: Moderately atrophic and grossly unremarkable. Adrenal glands: Unremarkable. Kidneys: The contrast enhanced kidneys demonstrate mild cortical atrophy and are without hydronephros is. The kidneys enhance symmetrically. Abdominal vasculature: The abdominal aorta is normal in course and caliber noting moderate atheroscle rotic calcification. Bowel: There is moderate constipation. No bowel obstruction is seen. There is mild colonic diverticul osis without CT evidence of acute diverticulitis. The appendix is well-visualized and normal. Peritoneum: There is no intraperitoneal free air or abdominal ascites. There is a large fat-containin g umbilical hernia. Lymphadenopathy: None. Pelvic viscera: The bladder is decompressed and grossly unremarkable. The prostate and seminal vesicl es are normal as imaged. There are bilateral fat-containing inguinal hernias. Skeletal structures: The skeletal structures are osteopenic. There is a chronic compression deformity of L5. Mild lumbosacral spondylosis is observed. No lytic or blastic lesions are seen. IMPRESSION: 1. Bibasilar airspace consolidation is typical for an infectious/inflammatory pneumonitis. Clinical c orrelation will be required and radiographic follow-up to resolution is recommended. 2. There are subacute-appearing left posterior rib fractures. 3. No acute infectious or inflammatory findings are identified in the abdomen or pelvis. 4. Moderate constipation. 5. Additional findings as above. ACT 112: Negative or not required by law. Electronically signed by: Gregg Gaston M.D. 06/29/2022 2:34 PM
[2022-06-29] MEDS ORDERED: bisacodyL 10 MG SUPP PR STA (14:40)
[2022-06-29] MEDS ORDERED: ALBUTEROL HFA 8 GM INHALER INH PRN (14:40)
[2022-06-29] MEDS ORDERED: traMADol HCL 50 MG TABLET PO PRN (14:40)
[2022-06-29] MEDS ORDERED: ONDANSETRON INJ 2 MG/ML 2 ML VIAL IV PRN (14:40)
[2022-06-29] MEDS ORDERED: ACETAMINOPHEN 325 MG TAB PO PRN (14:40)
--- NOTE | 2022-06-29 14:42 | XRay Report ---
XR knee LT 1 or 2V routine CLINICAL HISTORY: Left knee pain. COMPARISON: Left knee radiographs February 18, 2020. FINDINGS: Alignment of the left knee is anatomic. No joint effusion. No fracture is present. There i s no suspicious osseous lesion. Severe joint space narrowing with extensive osteophytosis of the gardner llofemoral compartment is noted. There is moderate medial compartment osteoarthritis as well. IMPRESSION: 1. No acute fracture or joint effusion of the left knee. 2. Severe patellofemoral and moderate medial compartment osteoarthritis of the left knee. ACT 112: Negative or not required by law. Electronically signed by: Del Soler M.D. 06/29/2022 2:40 PM
[2022-06-29] MEDS: LACTATED RINGER'S 1,000 ML IV SCH ×2 (15:18→23:15)
[2022-06-29] MEDS ORDERED: ALBUT/IPRATROP 3MG/0.5MG NEB 3 ML VIAL INH SCH (18:00)
[2022-06-29] MEDS: ALBUT/IPRATROP 3MG/0.5MG NEB 3 ML VIAL INH SCH (19:12)
[2022-06-29] MEDS: ATORVASTATIN 40 MG TAB PO SCH (20:49)
[2022-06-29] MEDS: levETIRAcetam 500 MG TAB PO SCH (20:50)
[2022-06-30] MEDS: ALBUT/IPRATROP 3MG/0.5MG NEB 3 ML VIAL INH SCH ×4 (00:36→19:04)
[2022-06-30] MEDS: PANTOprazole 40 MG TAB PO SCH (05:58)
[2022-06-30] MEDS: UMECLIDINIUM/VILANTEROL 62.5/25MCG 7 PUFFS/INHALER INH SCH (07:28)
[2022-06-30] MEDS: FLUTICASONE FUROATE 100MCG 14 PUFFS/INHALER INH SCH (07:28)
[2022-06-30] MEDS: levETIRAcetam 500 MG TAB PO SCH ×2 (07:28→20:35)
[2022-06-30] MEDS: cefTRIAXone SODIUM 2,000 MG in DEXTROSE 5% 50 ML IV SCH (07:31)
[2022-06-30 08:59] LABS: Basophils # (auto) 0.04 K/uL (0-0.2); Basophils % (auto) 0.3 %; Eosinophils # (auto) 0.04 K/uL (0-0.50); Eosinophils % (auto) 0.3 %; Hematocrit (blood only) 40.4 % (40.1-51.0); Hemoglobin 13.1 g/dl (14.0-18.0); Immature Granulocytes # (auto) 0.07 K/uL (0.00-0.02); Immature Granulocytes % (auto) 0.4 %; Lymphocytes # (auto) 1.44 K/uL (1.2-3.4); Lymphocytes % (auto) 9.2 %; Mean Corpuscular Hemoglobin 27.3 pg (25.0-34.0); Mean Corpuscular Hgb Conc 32.4 g/dL (32.0-36.0); Mean Corpuscular Volume 84.2 fL (80.0-100.0); Mean Platelet Volume 9.5 fL (9.4-12.4); Monocytes # (auto) 1.45 K/uL (0.24-0.82); Monocytes % (auto) 9.3 %; Neutrophils # (auto) 12.61 K/uL (1.4-6.5); Neutrophils % (auto) 80.5 %; Platelet Count 207 K/uL (130-400); RDW Coefficient of Variation 13.8 % (11.5-14.5); RDW Standard Deviation 42.4 fL (36.4-46.3); White Blood Count 15.65 K/ul (4.8-10.8)
[2022-06-30 09:19] LABS: BUN Creatinine Ratio 33.3 (10-20); Calcium 9.1 mg/dl (8.5-10.1); Creatinine Clr Calc Pharmacy 94.4 ml/min; Est GFR (African American) 100.1 ml/min; Est GFR (Non-African American) 86.3 ml/min; Potassium 3.5 mmol/L (3.5-5.1)
[2022-06-30] MEDS: RIVAROXABAN 20 MG TAB PO SCH (16:09)
[2022-06-30] MEDS ORDERED: ALBUT/IPRATROP 3MG/0.5MG NEB 3 ML VIAL INH PRN (19:57)
[2022-06-30] MEDS: ATORVASTATIN 40 MG TAB PO SCH (20:35)
--- NOTE | 2022-06-30 21:59 | Hospitalist Progress Note ---
Date of Service June 30, 2022 Assessment & Plan (1) SIRS (systemic inflammatory response syndrome): Plan: Patient presents with subjective fevers at home, increase dyspnea, reports of swollen left knee, constipation - DDX: Pulmonary source/aspiration vs. GI vs. viral vs. gout/pseudogout vs. hypovolemia vs.atelectasis - SIRS - 4 ; qSOFA- 1 - Lactate 2.8 1 liter in EMD follow recheck- continue with LR overnight - PCT negative - WBC 12 with increase in NLR - Blood cultures pending, UA negative - ESR/CRP pending - Left knee x-ray pending - CT chest/ABD/PEL as above - CXR negative - No tick exposure noted and normal LFTS - No evidence of organ dysfunction - Empiric coverage with Rocephin -On 06/30, patient has no signs of an active infection. Obtained lyme and anasplamosis test. (2) Chronic obstructive pulmonary disease: Plan: Does not appear to be an acute exacerbation at this time - pulmonary exam without wheeze, sputum change, CXR negative - Will schedule nebulizers q 8 for 24 hours - Continue with Trelegy/equivalent - Will not continue steroid therapy at this time (3) 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: Plan: Remains with left sided weakness - is on Keppra for his myoclonus jerking - continue - continue Xarelto - continue atorvastatin - hold coq10/omega 3 fatty acids (4) HEYDI (obstructive sleep apnea): Plan: Continue CPAP autopap (5) PAF (paroxysmal atrial fibrillation): Plan: Continue Xarelto - replete mag - follow electrolytes - not on rate control agent at home (6) Hypertension: Plan: As above (7) Hypercholesterolemia: Plan: Continue with atorvastatin (8) Depression: Plan: Continue sertraline (9) Myoclonic disorder: Plan: As above continue with Keppra (10) Hypomagnesemia: Plan: Mag 1.6 - replete Admission and Anticipated Discharge Date Admission Date: June 29, 2022 Subjective 76 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 Review of Systems Review of Systems: All systems reviewed & are unremarkable except as noted in HPI & below Physical Exam Physical Exam: General: awake, alert, no apparent distress Head: Normocephalic, atraumatic ENT: PERRL, EOMI, no pharyngeal exudate, mucous membranes moist Neuro: AAO x 1, speech clear and appropriate, overall 3-4/5 strength to bilateral extremities, left side weaker than on right, no focal worsening, speech is slow but appropriate, no headaches or seizures, tremor to right side Chest: equal rise and fall of the chest, no accessory muscle use, no heaves or thrills, Clear to auscultation, on room air, Cardiac: Regular rate and rhythm, telemetry reviewed- sinus with PAC, skin warm dry, cap refill <3 seconds, peripheral pulses +2 no JVD, no murmur, no edema GI: NABS x 4 quadrants, softly distended, nontender to palpation, umbilical hernia soft, : Spontaneously voiding, no pain, no CVA tenderness, MSK: Knees not swollen, no pain with movement, no laxity with varus/valgus movement, negative ballottement Psych: Normal mood and affect Skin: no open areas on feet, buttocks, groin, no erythema to scrotum or back Results & Data Results & Data ([facility]) Vital Signs (Past 12 Hours) Vital Signs Temp Pulse Pulse Resp BP BP Pulse Ox 06/30/22 20:02 36.9 C 86 20 140/71 94 06/30/22 19:04 76 16 96 06/30/22 15:53 73 06/30/22 15:06 36.8 C 75 20 125/70 95 06/30/22 13:00 18 94 06/30/22 11:14 36.5 C 93 H 20 160/72 H 92 O2 Del Method 06/30/22 20:02 Room Air 06/30/22 19:04 Room Air 06/30/22 15:53 06/30/22 15:06 Room Air 06/30/22 13:00 Room Air 06/30/22 11:14 PG Care Time/CCT Total # of Minutes Spent Total Time Spent with Patient: Total time spent is greater than 50% in coordination of care (as documented) at patient's floor/unit and/or counseling patient: Coding Level of Care Code 62217 Subseq Hosp Care Lvl 2 Diagnoses SIRS (systemic inflammatory response syndrome) R65.10 Chronic obstructive pulmonary disease J44.9 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
[2022-07-01] MEDS ORDERED: HALOPERIDOL LACTATE 5 MG/ML 1 ML VIAL IM STA (00:24)
[2022-07-01] MEDS ORDERED: OLANZapine 10 MG/2.1 ML SDV IM STA (01:19)
[2022-07-01] MEDS: PANTOprazole 40 MG TAB PO SCH (05:47)
[2022-07-01 07:48] LABS: Basophils # (auto) 0.05 K/uL (0-0.2); Basophils % (auto) 0.4 %; Eosinophils # (auto) 0.21 K/uL (0-0.50); Eosinophils % (auto) 1.7 %; Hematocrit (blood only) 37.9 % (40.1-51.0); Hemoglobin 12.4 g/dl (14.0-18.0); Immature Granulocytes # (auto) 0.07 K/uL (0.00-0.02); Immature Granulocytes % (auto) 0.6 %; Lymphocytes # (auto) 1.68 K/uL (1.2-3.4); Lymphocytes % (auto) 13.3 %; Mean Corpuscular Hemoglobin 27.9 pg (25.0-34.0); Mean Corpuscular Hgb Conc 32.7 g/dL (32.0-36.0); Mean Corpuscular Volume 85.2 fL (80.0-100.0); Mean Platelet Volume 9.7 fL (9.4-12.4); Monocytes # (auto) 1.37 K/uL (0.24-0.82); Monocytes % (auto) 10.9 %; Neutrophils # (auto) 9.21 K/uL (1.4-6.5); Neutrophils % (auto) 73.1 %; Platelet Count 204 K/uL (130-400); RDW Coefficient of Variation 13.7 % (11.5-14.5); RDW Standard Deviation 42.6 fL (36.4-46.3); Red Blood Count 4.45 M/uL (4.63-6.08); White Blood Count 12.59 K/ul (4.8-10.8)
[2022-07-01 08:25] LABS: Albumin Globulin Ratio 1.5 (0.9-2); Albumin Level 3.4 gm/dl (3.4-5.0); BUN Creatinine Ratio 28.7 (10-20); C Reactive Protein 7.98 mg/dl (0-0.5); Calcium 8.6 mg/dl (8.5-10.1); Creatinine Clr Calc Pharmacy 87.8 ml/min; Est GFR (African American) 97.2 ml/min; Est GFR (Non-African American) 83.8 ml/min; Globulin 2.3 gm/dl (2.5-4.0); Magnesium 1.9 mg/dl (1.7-2.4); Total Protein 5.7 gm/dl (6.0-8.3)
[2022-07-01] MEDS: levETIRAcetam 500 MG TAB PO SCH ×2 (08:29→19:54)
[2022-07-01] MEDS: cefTRIAXone SODIUM 2,000 MG in DEXTROSE 5% 50 ML IV SCH (08:30)
[2022-07-01] MEDS: FLUTICASONE FUROATE 100MCG 14 PUFFS/INHALER INH SCH (08:30)
[2022-07-01] MEDS: UMECLIDINIUM/VILANTEROL 62.5/25MCG 7 PUFFS/INHALER INH SCH (08:30)
[2022-07-01 08:51] LABS: Potassium 3.5 mmol/L (3.5-5.1)
[2022-07-01 10:53] LABS: Lyme Ab IgG w/WB Rflx Negative (Negative)
[2022-07-01 10:54] LABS: Lyme Ab IgM w/WB Rflx Negative (Negative)
[2022-07-01] MEDS: RIVAROXABAN 20 MG TAB PO SCH (17:28)
[2022-07-01] MEDS: ATORVASTATIN 40 MG TAB PO SCH (19:54)
--- NOTE | 2022-07-01 21:29 | Hospitalist Progress Note ---
Date of Service July 01, 2022 Assessment & Plan (1) SIRS (systemic inflammatory response syndrome): Plan: Patient presents with subjective fevers at home, increase dyspnea, reports of swollen left knee, constipation - DDX: Pulmonary source/aspiration vs. GI vs. viral vs. gout/pseudogout vs. hypovolemia vs.atelectasis - SIRS - 4 ; qSOFA- 1 - Lactate 2.8 1 liter in EMD follow recheck- continue with LR overnight - PCT negative - WBC 12 with increase in NLR - Blood cultures pending, UA negative - ESR/CRP pending - Left knee x-ray pending - CT chest/ABD/PEL as above - CXR negative - No tick exposure noted and normal LFTS - No evidence of organ dysfunction - Empiric coverage with Rocephin -On 06/30, patient has no signs of an active infection. Obtained lyme and anasplamosis test. -On 07/01, patient appears to be improving. continue ceftriaxone. willl consider adding antimicrobial coverage. Appears that source is pneumonia. will consider transitioning to oral antibiotics on 07/02 and monitoring blood work. 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: Plan: Remains with left sided weakness - is on Keppra for his myoclonus jerking - continue - continue Xarelto - continue atorvastatin - hold coq10/omega 3 fatty acids (4) HEYDI (obstructive sleep apnea): Plan: Continue CPAP autopap (5) PAF (paroxysmal atrial fibrillation): Plan: Continue Xarelto - replete mag - follow electrolytes - not on rate control agent at home (6) Hypertension: Plan: As above (7) Hypercholesterolemia: Plan: Continue with atorvastatin (8) Depression: Plan: Continue sertraline (9) Myoclonic disorder: Plan: As above continue with Keppra (10) Hypomagnesemia: Plan: Mag 1.6 - replete Admission and Anticipated Discharge Date Admission Date: June 29, 2022 Subjective 76 yo m reports no new symptoms. Review of Systems Review of Systems: All systems reviewed & are unremarkable except as noted in HPI & below Physical Exam Physical Exam: General: awake, alert, no apparent distress Head: Normocephalic, atraumatic ENT: PERRL, EOMI, no pharyngeal exudate, mucous membranes moist Neuro: AAO x 1, speech clear and appropriate, overall 3-4/5 strength to bilateral extremities, left side weaker than on right, no focal worsening, sp eech is slow but appropriate, no headaches or seizures, tremor to right side Chest: equal rise and fall of the chest, no accessory muscle use, no heaves or thrills, Clear to auscultation, on room air, Cardiac: Regular rate and rhythm, telemetry reviewed- sinus with PAC, skin warm dry, cap refill <3 seconds, peripheral pulses +2 no JVD, no murmur, no edema GI: NABS x 4 quadrants, softly distended, nontender to palpation, umbilical hernia soft, : Spontaneously voiding, no pain, no CVA tenderness, MSK: Knees not swollen, no pain with movement, no laxity with varus/valgus movement, negative ballottement Psych: Normal mood and affect Skin: no open areas on feet, buttocks, groin, no erythema to scrotum or back Results & Data Results & Data ([facility]) Vital Signs (Past 12 Hours) Vital Signs Temp Pulse Pulse Resp BP BP Pulse Ox 07/01/22 19:53 37.1 C 79 20 114/67 92 07/01/22 16:07 36.4 C L 62 18 133/68 93 07/01/22 14:56 58 L O2 Del Method 07/01/22 19:53 Room Air 07/01/22 16:07 Room Air 07/01/22 14:56 PG Care Time/CCT Total # of Minutes Spent Total Time Spent with Patient: Total time spent is greater than 50% in coordination of care (as documented) at patient's floor/unit and/or counseling patient: Coding Level of Care Code 80350 Subseq Hosp Care Lvl 3 Diagnoses SIRS (systemic inflammatory response syndrome) R65.10 Chronic obstructive pulmonary disease J44.9 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
[2022-07-02] MEDS: PANTOprazole 40 MG TAB PO SCH (05:48)
[2022-07-02 07:19] LABS: Basophils # (auto) 0.03 K/uL (0-0.2); Basophils % (auto) 0.3 %; Eosinophils % (auto) 2.7 %; Hematocrit (blood only) 40.4 % (40.1-51.0); Hemoglobin 13.2 g/dl (14.0-18.0); Immature Granulocytes # (auto) 0.05 K/uL (0.00-0.02); Immature Granulocytes % (auto) 0.4 %; Lymphocytes % (auto) 13.5 %; Mean Corpuscular Hemoglobin 27.7 pg (25.0-34.0); Mean Corpuscular Hgb Conc 32.7 g/dL (32.0-36.0); Mean Corpuscular Volume 84.9 fL (80.0-100.0); Mean Platelet Volume 10.1 fL (9.4-12.4); Monocytes # (auto) 0.85 K/uL (0.24-0.82); Monocytes % (auto) 7.6 %; Neutrophils # (auto) 8.39 K/uL (1.4-6.5); Neutrophils % (auto) 75.5 %; Platelet Count 222 K/uL (130-400); RDW Coefficient of Variation 13.7 % (11.5-14.5); RDW Standard Deviation 42.8 fL (36.4-46.3); Red Blood Count 4.76 M/uL (4.63-6.08); White Blood Count 11.12 K/ul (4.8-10.8)
[2022-07-02] MEDS: levETIRAcetam 500 MG TAB PO SCH ×2 (07:26→19:51)
[2022-07-02] MEDS: UMECLIDINIUM/VILANTEROL 62.5/25MCG 7 PUFFS/INHALER INH SCH (07:26)
[2022-07-02] MEDS: FLUTICASONE FUROATE 100MCG 14 PUFFS/INHALER INH SCH (07:27)
[2022-07-02 07:44] LABS: BUN Creatinine Ratio 24.7 (10-20); Calcium 8.8 mg/dl (8.5-10.1); Creatinine Clr Calc Pharmacy 94.6 ml/min; Est GFR (African American) 100.1 ml/min; Est GFR (Non-African American) 86.3 ml/min; Potassium 3.6 mmol/L (3.5-5.1)
[2022-07-02] MEDS: AMOXICILLIN/CLAVULANATE 875 MG TAB PO SCH ×2 (14:26→17:22)
[2022-07-02] MEDS: DOXYCYCLINE HYCLATE 100 MG CAP PO SCH ×2 (14:26→19:50)
[2022-07-02] MEDS: SERTRALINE HCL 100 MG TABLET PO SCH (14:26)
[2022-07-02] MEDS: RIVAROXABAN 20 MG TAB PO SCH (15:46)
[2022-07-02] MEDS: ATORVASTATIN 40 MG TAB PO SCH (19:51)
--- NOTE | 2022-07-02 21:17 | Hospitalist Progress Note ---
Date of Service July 02, 2022 Assessment & Plan (1) SIRS (systemic inflammatory response syndrome): Plan: Patient presents with subjective fevers at home, increase dyspnea, reports of swollen left knee, constipation - DDX: Pulmonary source/aspiration vs. GI vs. viral vs. gout/pseudogout vs. hypovolemia vs.atelectasis - SIRS - 4 ; qSOFA- 1 - Lactate 2.8 1 liter in EMD follow recheck- continue with LR overnight - PCT negative - WBC 12 with increase in NLR - Blood cultures pending, UA negative - ESR/CRP pending - Left knee x-ray pending - CT chest/ABD/PEL as above - CXR negative - No tick exposure noted and normal LFTS - No evidence of organ dysfunction - Empiric coverage with Rocephin -On 06/30, patient has no signs of an active infection. Obtained lyme and anasplamosis test. -On 07/01, patient appears to be improving. continue ceftriaxone. willl consider adding antimicrobial coverage. Appears that source is pneumonia. will consider transitioning to oral antibiotics on 07/02 and monitoring blood work. also discuss with PT/OT on 07/02 added augmentin and doxycyline. 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: Plan: Remains with left sided weakness - is on Keppra for his myoclonus jerking - continue - continue Xarelto - continue atorvastatin - hold coq10/omega 3 fatty acids (4) HEYDI (obstructive sleep apnea): Plan: Continue CPAP autopap (5) PAF (paroxysmal atrial fibrillation): Plan: Continue Xarelto - replete mag - follow electrolytes - not on rate control agent at home (6) Hypertension: Plan: As above (7) Hypercholesterolemia: Plan: Continue with atorvastatin (8) Depression: Plan: Continue sertraline (9) Myoclonic disorder: Plan: As above continue with Keppra (10) Hypomagnesemia: Plan: Mag 1.6 - replete Admission and Anticipated Discharge Date Admission Date: June 29, 2022 Subjective 76 yo male reports no new symptoms. He is feeling better. Review of Systems Review of Systems: All systems reviewed & are unremarkable except as noted in HPI & below Physical Exam Physical Exam: General: awake, alert, no apparent distress Head: Normocephalic, atraumatic ENT: PERRL, EOMI, no pharyngeal exudate, mucous membranes moist Neuro: AAO x 1, speech clear and appropriate, overall 3-4/5 strength to bilateral extremities, left side weaker than on right, no focal worsening, speech is slow but appropriate, no headaches or seizures, tremor to right side Chest: equal rise and fall of the chest, no accessory muscle use, no heaves or thrills, Clear to auscultation, on room air, Cardiac: Regular rate and rhythm, telemetry reviewed- sinus with PAC, skin warm dry, cap refill <3 seconds, peripheral pulses +2 no JVD, no murmur, no edema GI: NABS x 4 quadrants, softly distended, nontender to palpation, umbilical hernia soft, : Spontaneously voiding, no pain, no CVA tenderness, MSK: Knees not swollen, no pain with movement, no laxity with varus/valgus movement, negative ballottement Psych: Normal mood and affect Skin: no open areas on feet, buttocks, groin, no erythema to scrotum or back Results & Data Results & Data ([facility]) Vital Signs (Past 12 Hours) Vital Signs Temp Pulse Pulse Resp BP BP Pulse Ox 07/02/22 19:26 37 C 80 18 123/72 92 07/02/22 15:57 36.6 C 82 17 119/53 L 91 07/02/22 15:26 86 07/02/22 11:48 36.8 C 90 18 113/68 90 O2 Del Method 07/02/22 19:26 Room Air 07/02/22 15:57 Room Air 07/02/22 15:26 07/02/22 11:48 Room Air PG Care Time/CCT Total # of Minutes Spent Total Time Spent with Patient: Total time spent is greater than 50% in coordination of care (as documented) at patient's floor/unit and/or counseling patient: Coding Level of Care Code 44848 Subseq Hosp Care Lvl 2 Diagnoses SIRS (systemic inflammatory response syndrome) R65.10 Chronic obstructive pulmonary disease J44.9 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
[2022-07-03] MEDS: PANTOprazole 40 MG TAB PO SCH (06:37)
[2022-07-03] MEDS: AMOXICILLIN/CLAVULANATE 875 MG TAB PO SCH ×2 (07:44→16:20)
[2022-07-03] MEDS: levETIRAcetam 500 MG TAB PO SCH ×2 (07:44→20:21)
[2022-07-03] MEDS: DOXYCYCLINE HYCLATE 100 MG CAP PO SCH ×2 (07:44→20:21)
[2022-07-03] MEDS: FLUTICASONE FUROATE 100MCG 14 PUFFS/INHALER INH SCH (07:45)
[2022-07-03] MEDS: SERTRALINE HCL 100 MG TABLET PO SCH (07:45)
[2022-07-03] MEDS: UMECLIDINIUM/VILANTEROL 62.5/25MCG 7 PUFFS/INHALER INH SCH (07:46)
[2022-07-03] MEDS: RIVAROXABAN 20 MG TAB PO SCH (16:20)
--- NOTE | 2022-07-03 18:21 | Hospitalist Progress Note ---
Date of Service July 03, 2022 Assessment & Plan (1) SIRS (systemic inflammatory response syndrome): Plan: Patient presents with subjective fevers at home, increase dyspnea, reports of swollen left knee, constipation - DDX: Pulmonary source/aspiration vs. GI vs. viral vs. gout/pseudogout vs. hypovolemia vs.atelectasis - SIRS - 4 ; qSOFA- 1 - Lactate 2.8 1 liter in EMD follow recheck- continue with LR overnight - PCT negative - WBC 12 with increase in NLR - Blood cultures pending, UA negative - ESR/CRP pending - Left knee x-ray pending - CT chest/ABD/PEL as above - CXR negative - No tick exposure noted and normal LFTS - No evidence of organ dysfunction - Empiric coverage with Rocephin -On 06/30, patient has no signs of an active infection. Obtained lyme and anasplamosis test. -On 07/01, patient appears to be improving. continue ceftriaxone. willl consider adding antimicrobial coverage. Appears that source is pneumonia. will consider transitioning to oral antibiotics on 07/02 and monitoring blood work. also discuss with PT/OT on 07/02 added augmentin and doxycyline. awaiting placement On 07/03 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: Plan: Remains with left sided weakness - is on Keppra for his myoclonus jerking - continue - continue Xarelto - continue atorvastatin - hold coq10/omega 3 fatty acids Ordered speech therapy, diet has been updated. (4) HEYDI (obstructive sleep apnea): Plan: Continue CPAP autopap (5) PAF (paroxysmal atrial fibrillation): Plan: Continue Xarelto - replete mag - follow electrolytes - not on rate control agent at home (6) Hypertension: Plan: As above (7) Hypercholesterolemia: Plan: Continue with atorvastatin (8) Depression: Plan: Continue sertraline, this was added. (9) Myoclonic disorder: Plan: As above continue with Keppra (10) Hypomagnesemia: Plan: Mag 1.6 - replete Admission and Anticipated Discharge Date Admission Date: June 29, 2022 Subjective 76 yo male reports no new symptoms. His is at bedside. Review of Systems Review of Systems: All systems reviewed & are unremarkable except as noted in HPI & below Physical Exam Physical Exam: General: awake, alert, no apparent distress Head: Normocephalic, atraumatic ENT: PERRL, EOMI, no pharyngeal exudate, mucous membranes moist Neuro: AAO x 1, speech clear and appropriate, overall 3-4/5 strength to bilateral extremities, left side weaker than on right, no focal worsening, speech is slow but appropriate, no headaches or seizures, tremor to right side Chest: equal rise and fall of the chest, no accessory muscle use, no heaves or thrills, Clear to auscultation, on room air, Cardiac: Regular rate and rhythm, telemetry reviewed- sinus with PAC, skin warm dry, cap refill <3 seconds, peripheral pulses +2 no JVD, no murmur, no edema GI: NABS x 4 quadrants, softly distended, nontender to palpation, umbilical hernia soft, : Spontaneously voiding, no pain, no CVA tenderness, MSK: Knees not swollen, no pain with movement, no laxity with varus/valgus movement, negative ballottement Psych: Normal mood and affect Skin: no open areas on feet, buttocks, groin, no erythema to scrotum or back Results & Data Results & Data ([facility]) Vital Signs (Past 12 Hours) Vital Signs Temp Pulse Pulse Resp BP BP Pulse Ox 07/03/22 14:39 36.8 C 76 18 120/74 93 07/03/22 10:38 37.2 C 67 20 127/77 91 07/03/22 07:22 36.1 C L 69 16 125/76 90 07/03/22 07:15 66 O2 Del Method 07/03/22 14:39 Room Air 07/03/22 10:38 Room Air 07/03/22 07:22 Room Air 07/03/22 07:15 PG Care Time/CCT Total # of Minutes Spent Total Time Spent with Patient: Total time spent is greater than 50% in coordination of care (as documented) at patient's floor/unit and/or counseling patient: Coding Level of Care Code 90407 Subseq Hosp Care Lvl 2 Diagnoses SIRS (systemic inflammatory response syndrome) R65.10 Chronic obstructive pulmonary disease J44.9 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
[2022-07-03] MEDS: ATORVASTATIN 40 MG TAB PO SCH (20:20)
[2022-07-04] MEDS: PANTOprazole 40 MG TAB PO SCH (05:37)
[2022-07-04 07:04] LABS: Hematocrit (blood only) 41.4 % (40.1-51.0); Hemoglobin 13.5 g/dl (14.0-18.0); Mean Corpuscular Hemoglobin 27.6 pg (25.0-34.0); Mean Corpuscular Hgb Conc 32.6 g/dL (32.0-36.0); Mean Corpuscular Volume 84.5 fL (80.0-100.0); Mean Platelet Volume 9.8 fL (9.4-12.4); Platelet Count 263 K/uL (130-400); RDW Coefficient of Variation 13.9 % (11.5-14.5); RDW Standard Deviation 42.8 fL (36.4-46.3); White Blood Count 10.05 K/ul (4.8-10.8)
[2022-07-04] MEDS: levETIRAcetam 500 MG TAB PO SCH ×2 (07:19→20:01)
[2022-07-04] MEDS: SERTRALINE HCL 100 MG TABLET PO SCH (07:19)
[2022-07-04] MEDS: DOXYCYCLINE HYCLATE 100 MG CAP PO SCH ×2 (07:19→20:00)
[2022-07-04] MEDS: AMOXICILLIN/CLAVULANATE 875 MG TAB PO SCH ×2 (07:19→16:27)
[2022-07-04] MEDS: FLUTICASONE FUROATE 100MCG 14 PUFFS/INHALER INH SCH (07:20)
[2022-07-04] MEDS: UMECLIDINIUM/VILANTEROL 62.5/25MCG 7 PUFFS/INHALER INH SCH (07:20)
[2022-07-04 07:24] LABS: BUN Creatinine Ratio 27.5 (10-20); Calcium 8.6 mg/dl (8.5-10.1); Creatinine Clr Calc Pharmacy 84.5 ml/min; Est GFR (African American) 94.5 ml/min; Est GFR (Non-African American) 81.6 ml/min; Potassium 3.6 mmol/L (3.5-5.1)
[2022-07-04] MEDS: RIVAROXABAN 20 MG TAB PO SCH (16:27)
[2022-07-04] MEDS: ATORVASTATIN 40 MG TAB PO SCH (20:01)
--- NOTE | 2022-07-04 23:12 | Hospitalist Progress Note ---
Date of Service July 04, 2022 Assessment & Plan (1) SIRS (systemic inflammatory response syndrome): Plan: Sepsis secondary to aspiration pneumonia Patient presents with subjective fevers at home, increase dyspnea, reports of swollen left knee (OA), constipation - DDX: Pulmonary source/aspiration vs. GI vs. viral vs. gout/pseudogout vs. hypovolemia vs.atelectasis - SIRS - 4 ; qSOFA- 1 - Lactate 2.8 1 liter in EMD follow recheck- continue with LR overnight - PCT negative - WBC 12 with increase in NLR - Blood cultures pending, UA negative - ESR/CRP pending - Left knee x-ray pending - CT chest/ABD/PEL as above - CXR negative - No tick exposure noted and normal LFTS - No evidence of organ dysfunction - Empiric coverage with Rocephin -On 06/30, patient has no signs of an active infection. Obtained lyme and anasplamosis test. -On 07/01, patient appears to be improving. continue ceftriaxone. willl consider adding antimicrobial coverage. Appears that source is pneumonia due to previous stroke and difficulty swallowing will consider transitioning to oral antibiotics on 07/02 and monitoring blood work. also discuss with PT/OT on 07/02 added augmentin and doxycyline. awaiting placement On 07/03-07/04 awaiting placement continue antibiotics until PM of 07/06 (2) Chronic obstructive pulmonary disease: Plan: Does not appear to be an acute exacerbation at this time - pulmonary exam without wheeze, sputum change, CXR negative - Will schedule nebulizers q 8 for 24 hours - Continue with Trelegy/equivalent - Will not continue steroid therapy at this time (3) 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: Plan: Remains with left sided weakness - is on Keppra for his myoclonus jerking - continue - continue Xarelto - continue atorvastatin - hold coq10/omega 3 fatty acids Ordered speech therapy, diet has been updated. (4) HEYDI (obstructive sleep apnea): Plan: Continue CPAP autopap (5) PAF (paroxysmal atrial fibrillation): Plan: Continue Xarelto - replete mag - follow electrolytes - not on rate control agent at home (6) Hypertension: Plan: As above (7) Hypercholesterolemia: Plan: Continue with atorvastatin (8) Depression: Plan: Continue sertraline, this was added. (9) Myoclonic disorder: Plan: As above continue with Mario (10) Hypomagnesemia: Plan: Mag 1.6 - replete Admission and Anticipated Discharge Date Admission Date: June 29, 2022 Subjective Patient reports no new symptoms. Review of Systems Review of Systems: All systems reviewed & are unremarkable except as noted in HPI & below Physical Exam Physical Exam: General: awake, alert, no apparent distress Head: Normocephalic, atraumatic ENT: PERRL, EOMI, no pharyngeal exudate, mucous membranes moist Neuro: AAO x 1, speech clear and appropriate, overall 3-4/5 strength to bilateral extremities, left side weaker than on right, no focal worsening, speech is slow but appropriate, no headaches or seizures, tremor to right side Chest: equal rise and fall of the chest, no accessory muscle use, no heaves or thrills, Clear to auscultation, on room air, Cardiac: Regular rate and rhythm, telemetry reviewed- sinus with PAC, skin warm dry, cap refill <3 seconds, peripheral pulses +2 no JVD, no murmur, no edema GI: NABS x 4 quadrants, softly distended, nontender to palpation, umbilical hernia soft, : Spontaneously voiding, no pain, no CVA tenderness, MSK: Knees not swollen, no pain with movement, no laxity with varus/valgus movement, negative ballottement Psych: Normal mood and affect Skin: no open areas on feet, buttocks, groin, no erythema to scrotum or back Results & Data Results & Data ([facility]) Vital Signs (Past 12 Hours) Vital Signs Temp Pulse Pulse Resp BP Pulse Ox O2 Del Method 07/04/22 23:03 36.9 C 66 19 122/67 92 Room Air 07/04/22 19:50 Room Air 07/04/22 19:31 36.6 C 68 18 120/76 94 Room Air 07/04/22 15:48 72 07/04/22 15:03 36.9 C 68 20 120/75 93 Room Air PG Care Time/CCT Total # of Minutes Spent Total Time Spent with Patient: Total time spent is greater than 50% in coordination of care (as documented) at patient's floor/unit and/or counseling patient: Coding Level of Care Code 27311 Subseq Hosp Care Lvl 2 Diagnoses SIRS (systemic inflammatory response syndrome) R65.10 Chronic obstructive pulmonary disease J44.9 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
[2022-07-05] MEDS: PANTOprazole 40 MG TAB PO SCH (05:33)
[2022-07-05] MEDS: DOXYCYCLINE HYCLATE 100 MG CAP PO SCH ×2 (09:06→20:13)
[2022-07-05] MEDS: levETIRAcetam 500 MG TAB PO SCH ×2 (09:06→20:13)
[2022-07-05] MEDS: AMOXICILLIN/CLAVULANATE 875 MG TAB PO SCH ×2 (09:06→18:26)
[2022-07-05] MEDS: SERTRALINE HCL 100 MG TABLET PO SCH (09:06)
[2022-07-05] MEDS: UMECLIDINIUM/VILANTEROL 62.5/25MCG 7 PUFFS/INHALER INH SCH (09:07)
[2022-07-05] MEDS: FLUTICASONE FUROATE 100MCG 14 PUFFS/INHALER INH SCH (10:11)
[2022-07-05] MEDS: RIVAROXABAN 20 MG TAB PO SCH (18:26)
[2022-07-05] MEDS: ATORVASTATIN 40 MG TAB PO SCH (20:13)
--- NOTE | 2022-07-05 21:26 | Hospitalist Progress Note ---
Date of Service July 05, 2022 Assessment & Plan (1) SIRS (systemic inflammatory response syndrome): Plan: Sepsis secondary to aspiration pneumonia Patient presents with subjective fevers at home, increase dyspnea, reports of swollen left knee (OA), constipation - DDX: Pulmonary source/aspiration vs. GI vs. viral vs. gout/pseudogout vs. hypovolemia vs.atelectasis - SIRS - 4 ; qSOFA- 1 - Lactate 2.8 1 liter in EMD follow recheck- continue with LR overnight - PCT negative - WBC 12 with increase in NLR - Blood cultures pending, UA negative - ESR/CRP pending - Left knee x-ray pending - CT chest/ABD/PEL as above - CXR negative - No tick exposure noted and normal LFTS - No evidence of organ dysfunction - Empiric coverage with Rocephin -On 06/30, patient has no signs of an active infection. Obtained lyme and anasplamosis test. -On 07/01, patient appears to be improving. continue ceftriaxone. willl consider adding antimicrobial coverage. Appears that source is pneumonia due to previous stroke and difficulty swallowing will consider transitioning to oral antibiotics on 07/02 and monitoring blood work. also discuss with PT/OT on 07/02 added augmentin and doxycyline. awaiting placement On 07/03-07/05 awaiting placement continue antibiotics until PM of 07/06 (2) Chronic obstructive pulmonary disease: Plan: Does not appear to be an acute exacerbation at this time - pulmonary exam without wheeze, sputum change, CXR negative - Will schedule nebulizers q 8 for 24 hours - Continue with Trelegy/equivalent - Will not continue steroid therapy at this time (3) 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: Plan: Remains with left sided weakness - is on Keppra for his myoclonus jerking - continue - continue Xarelto - continue atorvastatin - hold coq10/omega 3 fatty acids Ordered speech therapy, diet has been updated. (4) HEYDI (obstructive sleep apnea): Plan: Continue CPAP autopap (5) PAF (paroxysmal atrial fibrillation): Plan: Continue Xarelto - replete mag - follow electrolytes - not on rate control agent at home (6) Hypertension: Plan: As above (7) Hypercholesterolemia: Plan: Continue with atorvastatin (8) Depression: Plan: Continue sertraline, this was added. (9) Myoclonic disorder: Plan: As above continue with Mario (10) Hypomagnesemia: Plan: Mag 1.6 - replete Admission and Anticipated Discharge Date Admission Date: June 29, 2022 Subjective Feeling okay. No complaints. Still waiting on placement. Review of Systems Review of Systems: All systems reviewed & are unremarkable except as noted in HPI & below Physical Exam Physical Exam: In general he is awake and alert pleasant no distress. HEENT normocephalic atraumatic mucous membranes moist. Breathing unlabored no accessory muscle use good effort. Skin shows no rashes no pallor or icterus. Lungs are clear no rales rhonchi or wheezes good effort. Results & Data Results & Data ([facility]) Vital Signs (Past 12 Hours) Vital Signs Temp Pulse Pulse Resp BP Pulse Ox O2 Del Method 07/05/22 20:19 Room Air 07/05/22 19:00 98.1 F 65 20 137/76 94 Room Air 07/05/22 16:00 67 07/05/22 16:49 98.4 F 71 18 137/46 L 95 Room Air 07/05/22 11:20 98.2 F 71 18 110/69 93 Room Air PG Care Time/CCT Total # of Minutes Spent Total Time Spent with Patient: Total time spent is greater than 50% in coordination of care (as documented) at patient's floor/unit and/or counseling patient: Coding Level of Care Code 08128 Subseq Hosp Care Lvl 1 Diagnoses SIRS (systemic inflammatory response syndrome) R65.10 Chronic obstructive pulmonary disease J44.9 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
[2022-07-06] MEDS: PANTOprazole 40 MG TAB PO SCH (05:54)
[2022-07-06] MEDS: UMECLIDINIUM/VILANTEROL 62.5/25MCG 7 PUFFS/INHALER INH SCH (09:58)
[2022-07-06] MEDS: FLUTICASONE FUROATE 100MCG 14 PUFFS/INHALER INH SCH (09:58)
[2022-07-06] MEDS: AMOXICILLIN/CLAVULANATE 875 MG TAB PO SCH ×2 (09:59→16:17)
[2022-07-06] MEDS: DOXYCYCLINE HYCLATE 100 MG CAP PO SCH ×2 (09:59→20:26)
[2022-07-06] MEDS: SERTRALINE HCL 100 MG TABLET PO SCH (09:59)
[2022-07-06] MEDS: levETIRAcetam 500 MG TAB PO SCH ×2 (09:59→20:26)
--- NOTE | 2022-07-06 11:13 | Hospitalist Progress Note ---
Date of Service July 06, 2022 Assessment & Plan (1) SIRS (systemic inflammatory response syndrome): Plan: Sepsis secondary to aspiration pneumonia Patient presents with subjective fevers at home, increase dyspnea, reports of swollen left knee (OA), constipation - DDX: Pulmonary source/aspiration vs. GI vs. viral vs. gout/pseudogout vs. hypovolemia vs.atelectasis - SIRS - 4 ; qSOFA- 1 - Lactate 2.8 1 liter in EMD follow recheck- continue with LR overnight - PCT negative - WBC 12 with increase in NLR - Blood cultures pending, UA negative - ESR/CRP pending - Left knee x-ray pending - CT chest/ABD/PEL as above - CXR negative - No tick exposure noted and normal LFTS - No evidence of organ dysfunction - Empiric coverage with Rocephin -On 06/30, patient has no signs of an active infection. Obtained lyme and anasplamosis test. -On 07/01, patient appears to be improving. continue ceftriaxone. willl consider adding antimicrobial coverage. Appears that source is pneumonia due to previous stroke and difficulty swallowing will consider transitioning to oral antibiotics on 07/02 and monitoring blood work. also discuss with PT/OT on 07/02 added augmentin and doxycyline. awaiting placement On 07/03-07/06 awaiting placement abx complete tonight (2) Chronic obstructive pulmonary disease: Plan: Does not appear to be an acute exacerbation at this time - pulmonary exam without wheeze, sputum change, CXR negative - Will schedule nebulizers q 8 for 24 hours - Continue with Trelegy/equivalent - Will not continue steroid therapy at this time (3) 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: Plan: Remains with left sided weakness - is on Keppra for his myoclonus jerking - continue - continue Xarelto - continue atorvastatin - hold coq10/omega 3 fatty acids Ordered speech therapy, diet has been updated. (4) HEYDI (obstructive sleep apnea): Plan: Continue CPAP autopap (5) PAF (paroxysmal atrial fibrillation): Plan: Continue Xarelto - replete mag - follow electrolytes - not on rate control agent at home (6) Hypertension: Plan: As above (7) Hypercholesterolemia: Plan: Continue with atorvastatin (8) Depression: Plan: Continue sertraline, this was added. (9) Myoclonic disorder: Plan: As above continue with Mario (10) Hypomagnesemia: Plan: Mag 1.6 - replete Admission and Anticipated Discharge Date Admission Date: June 29, 2022 Subjective feeling ok no sob no symptoms. appears placement saturday Review of Systems Review of Systems: All systems reviewed & are unremarkable except as noted in HPI & below Physical Exam Physical Exam: gen pleasant nad heent nc at mmm breathing unlabored no accessry muscles good effort skin no rashes no pallor or icterus no focal neuro deficits Results & Data Results & Data ([facility]) Vital Signs (Past 12 Hours) Vital Signs Temp Pulse Pulse Resp BP Pulse Ox O2 Del Method 07/06/22 08:00 61 07/06/22 07:26 97.9 F 64 18 121/70 94 Room Air 07/06/22 03:48 98.6 F 71 18 123/64 94 Room Air PG Care Time/CCT Total # of Minutes Spent Total Time Spent with Patient: Total time spent is greater than 50% in coordination of care (as documented) at patient's floor/unit and/or counseling patient: Coding Level of Care Code 22434 Subseq Hosp Care Lvl 1 Diagnoses SIRS (systemic inflammatory response syndrome) R65.10 Chronic obstructive pulmonary disease J44.9 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
[2022-07-06] MEDS: RIVAROXABAN 20 MG TAB PO SCH (16:17)
[2022-07-06] MEDS ORDERED: DOCUSATE SODIUM 100 MG CAP PO ONE (18:57)
[2022-07-06] MEDS: guaiFENesin 600 MG TABCR PO SCH (20:26)
[2022-07-06] MEDS: ATORVASTATIN 40 MG TAB PO SCH (20:26)
[2022-07-06] MEDS: DOCUSATE SODIUM 100 MG CAP PO SCH (20:28)
[2022-07-07] MEDS: PANTOprazole 40 MG TAB PO SCH (06:00)
[2022-07-07] MEDS: DOCUSATE SODIUM 100 MG CAP PO SCH ×2 (08:29→19:19)
[2022-07-07] MEDS: DOXYCYCLINE HYCLATE 100 MG CAP PO SCH ×2 (08:29→19:19)
[2022-07-07] MEDS: guaiFENesin 600 MG TABCR PO SCH ×2 (08:29→19:18)
[2022-07-07] MEDS: FLUTICASONE FUROATE 100MCG 14 PUFFS/INHALER INH SCH (08:29)
[2022-07-07] MEDS: UMECLIDINIUM/VILANTEROL 62.5/25MCG 7 PUFFS/INHALER INH SCH (08:29)
[2022-07-07] MEDS: AMOXICILLIN/CLAVULANATE 875 MG TAB PO SCH (08:30)
[2022-07-07] MEDS: SERTRALINE HCL 100 MG TABLET PO SCH (08:30)
[2022-07-07] MEDS: levETIRAcetam 500 MG TAB PO SCH ×2 (08:30→19:19)
[2022-07-07] MEDS: RIVAROXABAN 20 MG TAB PO SCH (16:07)
--- NOTE | 2022-07-07 17:17 | Hospitalist Progress Note ---
Date of Service July 07, 2022 Assessment & Plan (1) SIRS (systemic inflammatory response syndrome): Plan: Sepsis secondary to aspiration pneumonia Patient presents with subjective fevers at home, increase dyspnea, reports of swollen left knee (OA), constipation - DDX: Pulmonary source/aspiration vs. GI vs. viral vs. gout/pseudogout vs. hypovolemia vs.atelectasis - SIRS - 4 ; qSOFA- 1 - Lactate 2.8 1 liter in EMD follow recheck- continue with LR overnight - PCT negative - WBC 12 with increase in NLR - Blood cultures pending, UA negative - ESR/CRP pending - Left knee x-ray pending - CT chest/ABD/PEL as above - CXR negative - No tick exposure noted and normal LFTS - No evidence of organ dysfunction - Empiric coverage with Rocephin -On 06/30, patient has no signs of an active infection. Obtained lyme and anasplamosis test. -On 07/01, patient appears to be improving. continue ceftriaxone. willl consider adding antimicrobial coverage. Appears that source is pneumonia due to previous stroke and difficulty swallowing will consider transitioning to oral antibiotics on 07/02 and monitoring blood work. also discuss with PT/OT on 07/02 added augmentin and doxycyline. awaiting placement On 07/03-07/07 awaiting placement abx completed 07/06. (2) Chronic obstructive pulmonary disease: Plan: Does not appear to be an acute exacerbation at this time - pulmonary exam without wheeze, sputum change, CXR negative - Will schedule nebulizers q 8 for 24 hours - Continue with Trelegy/equivalent - Will not continue steroid therapy at this time (3) 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: Plan: Remains with left sided weakness - is on Keppra for his myoclonus jerking - continue - continue Xarelto - continue atorvastatin - hold coq10/omega 3 fatty acids Ordered speech therapy, diet has been updated. (4) HEYDI (obstructive sleep apnea): Plan: Continue CPAP autopap (5) PAF (paroxysmal atrial fibrillation): Plan: Continue Xarelto - replete mag - follow electrolytes - not on rate control agent at home (6) Hypertension: Plan: As above (7) Hypercholesterolemia: Plan: Continue with atorvastatin (8) Depression: Plan: Continue sertraline, this was added. (9) Myoclonic disorder: Plan: As above continue with Mario (10) Hypomagnesemia: Plan: Mag 1.6 - replete Admission and Anticipated Discharge Date Admission Date: June 29, 2022 Subjective sleeping Physical Exam Physical Exam: no distress at rest, allowed pt to sleep. skin wihtout pallor. breathing unlabored. Results & Data Results & Data ([facility]) Vital Signs (Past 12 Hours) Vital Signs Temp Pulse Pulse Resp BP BP Pulse Ox 07/07/22 15:03 97.3 F L 59 L 18 116/71 96 07/07/22 14:59 65 07/07/22 11:35 97.7 F 67 16 118/66 96 07/07/22 07:28 97.9 F 62 20 115/68 95 07/07/22 07:11 55 L O2 Del Method 07/07/22 15:03 Room Air 07/07/22 14:59 07/07/22 11:35 Room Air 07/07/22 07:28 BiPAP 07/07/22 07:11 PG Care Time/CCT Total # of Minutes Spent Total Time Spent with Patient: Total time spent is greater than 50% in coordination of care (as documented) at patient's floor/unit and/or counseling patient: Coding Level of Care Code 24079 Subseq Hosp Care Lvl 1 Diagnoses SIRS (systemic inflammatory response syndrome) R65.10 Chronic obstructive pulmonary disease J44.9 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
[2022-07-07] MEDS: ATORVASTATIN 40 MG TAB PO SCH (19:18)
[2022-07-08] MEDS ORDERED: ACETAMINOPHEN 325 MG TAB PO PRN (08:05)
[2022-07-08] MEDS: UMECLIDINIUM/VILANTEROL 62.5/25MCG 7 PUFFS/INHALER INH SCH (08:53)
[2022-07-08] MEDS: levETIRAcetam 500 MG TAB PO SCH ×2 (08:54→21:25)
[2022-07-08] MEDS: guaiFENesin 600 MG TABCR PO SCH ×2 (08:54→21:25)
[2022-07-08] MEDS: DOXYCYCLINE HYCLATE 100 MG CAP PO SCH ×2 (08:54→21:25)
[2022-07-08] MEDS: SERTRALINE HCL 100 MG TABLET PO SCH (08:54)
[2022-07-08] MEDS: FLUTICASONE FUROATE 100MCG 14 PUFFS/INHALER INH SCH (08:54)
[2022-07-08] MEDS: DOCUSATE SODIUM 100 MG CAP PO SCH ×2 (08:54→21:26)
[2022-07-08] MEDS: PANTOprazole 40 MG TAB PO SCH (08:54)
--- NOTE | 2022-07-08 13:39 | Hospitalist Progress Note ---
Date of Service July 08, 2022 Assessment & Plan (1) SIRS (systemic inflammatory response syndrome): Plan: Sepsis secondary to aspiration pneumonia Patient presents with subjective fevers at home, increase dyspnea, reports of swollen left knee (OA), constipation - DDX: Pulmonary source/aspiration vs. GI vs. viral vs. gout/pseudogout vs. hypovolemia vs.atelectasis - SIRS - 4 ; qSOFA- 1 - Lactate 2.8 1 liter in EMD follow recheck- continue with LR overnight - PCT negative - WBC 12 with increase in NLR - Blood cultures pending, UA negative - ESR/CRP pending - Left knee x-ray pending - CT chest/ABD/PEL as above - CXR negative - No tick exposure noted and normal LFTS - No evidence of organ dysfunction - Empiric coverage with Rocephin -On 06/30, patient has no signs of an active infection. Obtained lyme and anasplamosis test. -On 07/01, patient appears to be improving. continue ceftriaxone. willl consider adding antimicrobial coverage. Appears that source is pneumonia due to previous stroke and difficulty swallowing will consider transitioning to oral antibiotics on 07/02 and monitoring blood work. also discuss with PT/OT on 07/02 added augmentin and doxycyline. awaiting placement On 07/03-07/08 awaiting placement abx completed 07/06. (2) Chronic obstructive pulmonary disease: Plan: Does not appear to be an acute exacerbation at this time - pulmonary exam without wheeze, sputum change, CXR negative - Will schedule nebulizers q 8 for 24 hours - Continue with Trelegy/equivalent (3) 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: Plan: Remains with left sided weakness - is on Keppra for his myoclonus jerking - continue - continue Xarelto - continue atorvastatin - hold coq10/omega 3 fatty acids Ordered speech therapy, diet has been updated. (4) HEYDI (obstructive sleep apnea): Plan: Continue CPAP/ autopap (5) PAF (paroxysmal atrial fibrillation): Plan: Rate controlled, anticoagulated (6) Hypertension: Plan: Blood pressure has been acceptable (7) Hypercholesterolemia: Plan: Continue with atorvastatin (8) Depression: Plan: Continue sertraline, this was added. (9) Myoclonic disorder: Plan: As above continue with Keppra (10) Hypomagnesemia: Plan: Repleted Admission and Anticipated Discharge Date Admission Date: June 29, 2022 Subjective No new complaintsjust wonders when he is going to [facility]. Reiterated what I know from case management. Review of Systems Review of Systems: All systems reviewed & are unremarkable except as noted in HPI & below Physical Exam Physical Exam: General he is awake and alert pleasant no distress. HEENT normocephalic atraumatic mucous membranes moist. Breathing unlabored no accessory muscle use good effort. Skin shows no rashes no pallor or icterus. Results & Data Results & Data ([facility]) Vital Signs (Past 12 Hours) Vital Signs Temp Pulse Pulse Resp BP Pulse Ox O2 Del Method 07/08/22 11:19 98.6 F 60 18 109/67 97 Room Air 07/08/22 07:26 97.7 F 62 18 120/67 94 Room Air 07/08/22 07:16 BiPAP 07/08/22 07:03 56 L 07/08/22 03:52 98.4 F 62 18 125/73 96 CPAP 07/08/22 03:15 62 19 95 FiO2 07/08/22 11:19 07/08/22 07:26 07/08/22 07:16 07/08/22 07:03 07/08/22 03:52 07/08/22 03:15 21 PG Care Time/CCT Total # of Minutes Spent Total Time Spent with Patient: Total time spent is greater than 50% in coordination of care (as documented) at patient's floor/unit and/or counseling patient: Coding Level of Care Code 02911 Subseq Hosp Care Lvl 1 Diagnoses SIRS (systemic inflammatory response syndrome) R65.10 Chronic obstructive pulmonary disease J44.9 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
[2022-07-08] MEDS: RIVAROXABAN 20 MG TAB PO SCH (16:01)
[2022-07-08] MEDS: ATORVASTATIN 40 MG TAB PO SCH (21:26)
[2022-07-09] MEDS: PANTOprazole 40 MG TAB PO SCH (06:11)
[2022-07-09] MEDS: FLUTICASONE FUROATE 100MCG 14 PUFFS/INHALER INH SCH (07:31)
[2022-07-09] MEDS: SERTRALINE HCL 100 MG TABLET PO SCH (07:31)
[2022-07-09] MEDS: guaiFENesin 600 MG TABCR PO SCH ×2 (07:31→20:44)
[2022-07-09] MEDS: UMECLIDINIUM/VILANTEROL 62.5/25MCG 7 PUFFS/INHALER INH SCH (07:31)
[2022-07-09] MEDS: levETIRAcetam 500 MG TAB PO SCH ×2 (07:31→20:44)
[2022-07-09] MEDS: DOXYCYCLINE HYCLATE 100 MG CAP PO SCH (07:32)
[2022-07-09] MEDS: DOCUSATE SODIUM 100 MG CAP PO SCH ×2 (07:32→20:45)
--- NOTE | 2022-07-09 11:01 | Hospitalist Progress Note ---
Date of Service July 09, 2022 Assessment & Plan (1) SIRS (systemic inflammatory response syndrome): Plan: Sepsis secondary to aspiration pneumonia Patient presents with subjective fevers at home, increase dyspnea, reports of swollen left knee (OA), constipation - SIRS - 4; qSOFA- 1 - Lactate 2.8 1 liter in EMD follow recheck- continue with LR overnight - PCT negative, WBC 12 with increase in NLR - Blood cultures pending, UA negative - Left knee x-ray obtained - CT chest/ABD/PEL obtained/reviewed - CXR negative - No tick exposure noted and normal LFTS - No evidence of organ dysfunction - Empiric coverage provided with Rocephin -On 06/30, patient has no signs of an active infection. Obtained lyme and anaplasmosis test. -On 07/01, patient appears to be improving. continued ceftriaxone. Appeared that source is pneumonia due to previous stroke and difficulty swallowing PT/OT eval -on 07/02 transitioned to augmentin and doxycyline. awaiting placement -07/03-07/09 awaiting placement abx completed 07/06. (2) Chronic obstructive pulmonary disease: Plan: Does not appear to be an acute exacerbation at this time - pulmonary exam without wheeze, sputum change, CXR negative - Will schedule nebulizers q 8 for 24 hours - Continue with Trelegy/equivalent (3) 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: Plan: Remains with left sided weakness - is on Keppra for his myoclonus jerking - continue - continue Xarelto - continue atorvastatin - hold coq10/omega 3 fatty acids Ordered speech therapy, diet has been updated. no straws. could continue [facility] [employer] services at SNF. (4) HEYDI (obstructive sleep apnea): Plan: - Continue CPAP/ autopap (5) PAF (paroxysmal atrial fibrillation): Plan: - Rate controlled, anticoagulated (6) Hypertension: Plan: - Blood pressure has been acceptable (7) Hypercholesterolemia: Plan: - Continue with atorvastatin (8) Depression: Plan: - Continue sertraline, this was added. (9) Myoclonic disorder: Plan: - As above continue with Keppra Plan Continue current care, await insurance auth. Pt medically stable for dc to [facility]. Case management following. Plan d/w Dr. Alvarez. Admission and Anticipated Discharge Date Admission Date: June 29, 2022 Subjective Patient seen on daily rounds this morning. Verbalizes no complaints/concerns at this time. He is awaiting dc to [facility] once insurance auth received. Review of Systems Review of Systems: All systems reviewed and are unremarkable except as noted in HPI and below. Denies fever, chills, fatigue, headache, nasal congestion, sore throat, cough, chest pain, shortness of breath, palpitations, orthopnea, PND, abdominal pain, n/v/d, constipation, dysuria, hematuria, frequency, back pain, joint pain or swelling, easy bruising or bleeding, skin lesions or rashes. Physical Exam Physical Exam: GENERAL: 76 yo Well-developed, well-nourished elderly WM. NAD. LUNGS: Clear to auscultation bilaterally. CARDIOVASCULAR: S1 S2 ABDOMEN: Soft, non-tender and non-distended. BS normoactive x 4 quad. EXTREMITIES: No edema. Non-tender. Peripheral pulses +2/4. NEUROLOGIC: A&O x3. Nonfocal PSYCHIATRIC: Cooperative. Appropriate mood and affect. SKIN: Warm, dry, intact. Results & Data Results & Data ([facility]) Vital Signs (Past 12 Hours) Vital Signs Temp Pulse Pulse Resp BP BP Pulse Ox 07/09/22 07:37 37 C 60 19 108/67 94 07/09/22 03:38 63 18 93 07/09/22 03:09 36.3 C L 66 20 122/76 95 07/08/22 22:56 36.4 C L 60 20 108/68 95 O2 Del Method FiO2 07/09/22 07:37 Room Air 07/09/22 03:38 21 07/09/22 03:09 BiPAP 07/08/22 22:56 BiPAP Laboratory Results None PG Care Time/CCT Total # of Minutes Spent Total Time Spent with Patient: Total time spent is greater than 50% in coordination of care (as documented) at patient's floor/unit and/or counseling patient: Coding Level of Care Code 02999 Subseq Hosp Care Lvl 1 Diagnoses SIRS (systemic inflammatory response syndrome) R65.10 Chronic obstructive pulmonary disease J44.9 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 HEYDI (obstructive sleep apnea) G47.33 PAF (paroxysmal atrial fibrillation) I48.0 Hypertension I10 Hypercholesterolemia E78.00 Depression F32.9 Myoclonic disorder G25.3
[2022-07-09] MEDS: RIVAROXABAN 20 MG TAB PO SCH (16:20)
[2022-07-09] MEDS: ATORVASTATIN 40 MG TAB PO SCH (20:45)
[2022-07-10] MEDS: PANTOprazole 40 MG TAB PO SCH (05:35)
[2022-07-10] MEDS: SERTRALINE HCL 100 MG TABLET PO SCH (07:28)
[2022-07-10] MEDS: guaiFENesin 600 MG TABCR PO SCH (07:28)
[2022-07-10] MEDS: levETIRAcetam 500 MG TAB PO SCH (07:28)
[2022-07-10] MEDS: DOCUSATE SODIUM 100 MG CAP PO SCH (07:28)
[2022-07-10] MEDS: UMECLIDINIUM/VILANTEROL 62.5/25MCG 7 PUFFS/INHALER INH SCH (07:29)
[2022-07-10] MEDS: FLUTICASONE FUROATE 100MCG 14 PUFFS/INHALER INH SCH (07:29)
--- NOTE | 2022-07-10 13:40 | Discharge Summary ---
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 Patient comes to the EMD today for complaints of dyspnea at home, fevers, chills. This has been ongoing for the past 2-3 days, but endorses that he normally has increase in his "jerks", then gets a fever and increase in his respiratory rate. Patient has not had a BM if 5 days as well as noting some let sided knee warmth/redness that comes on at night. No tick exposure that is known, no time outside, no dental a ppointments or recent teeth extraction. In the EMD the patient was noted to be febrile with tachypnea/tachycardia normal blood pressure. He has not missed a dose of his Xarelto except this morning (this will be given now), routine labs were initially drawn and was treated as COPD exacerbation for some hypoxia. CXR negative for infiltrate or opacity but low lung volume, ABG not hypercarbic. He is noted to have elevated WBC count, Increase in NLR, and elevated lactate level. UA negative, Flu/RSV/COVID negative. He was given 1 dose of Doxycycline in the EMD, blood cultures were then drawn. Patient will be admitted for SIRS workup and further search for source of the above. CT chest and CT ABD/Pel with IV contrast will be obtained. COVID/RSV/FLU: NEGATIVE Principal Diagnosis Sepsis syndrome d/t aspiration pna - resolved Discharge Exam GENERAL: 76 yo Well-developed, well-nourished elderly WM. NAD. LUNGS: Clear to auscultation bilaterally. CARDIOVASCULAR: S1 S2 ABDOMEN: Soft, non-tender and non-distended. BS normoactive x 4 quad. EXTREMITIES: No edema. Non-tender. Peripheral pulses +2/4. NEUROLOGIC: A&O x3. Nonfocal PSYCHIATRIC: Cooperative. Appropriate mood and affect. SKIN: Warm, dry, intact. Discharge Data Allergies Allergy/AdvReac Type Severity Reaction Status Date / Time salmeterol Allergy Mild Hives Verified 04/12/22 13:49 Ordered Studies 06/29/22 13:02 CT Abd and Pelvis [CT abd pelvis IV con only] Routine 06/29/22 13:41 CT chest with contrast [CT chest diagnostic w con] Routine Hospital Course (1) SIRS (systemic inflammatory response syndrome): Sepsis secondary to aspiration pneumonia Patient presents with subjective fevers at home, increase dyspnea, reports of swollen left knee (OA), constipation - SIRS - 4; qSOFA- 1 - Lactate 2.8 1 liter in EMD follow recheck- continue with LR overnight - PCT negative, WBC 12 with increase in NLR - Blood cultures pending, UA negative - Left knee x-ray obtained - CT chest/ABD/PEL obtained/reviewed - CXR negative - No tick exposure noted and normal LFTS - No evidence of organ dysfunction - Empiric coverage provided with Rocephin -On 06/30, patient has no signs of an active infection. Obtained lyme and anaplasmosis test. -On 07/01, patient appears to be improving. continued ceftriaxone. Appeared that source is pneumonia due to previous stroke and difficulty swallowing PT/OT eval -on 07/02 transitioned to augmentin and doxycyline. awaiting placement -07/03-07/09 awaiting placement abx completed 07/06. -07/10 Insurance auth received by case management Jacquie emerson confirmed can take today Transport arranged (2) Chronic obstructive pulmonary disease: Does not appear to be an acute exacerbation at this time - pulmonary exam without wheeze, sputum change, CXR negative - Will schedule nebulizers q 8 for 24 hours - Continue with Trelegy/equivalent (3) 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: Remains with left sided weakness - is on Keppra for his myoclonus jerking - continue - continue Xarelto - continue atorvastatin - hold coq10/omega 3 fatty acids Ordered speech therapy, diet has been updated. no straws. could continue [facility] services at SNF. (4) HEYDI (obstructive sleep apnea): - Continue CPAP/ autopap (5) PAF (paroxysmal atrial fibrillation): - Rate controlled, anticoagulated (6) Hypertension: - Blood pressure has been acceptable (7) Hypercholesterolemia: - Continue with atorvastatin (8) Depression: - Continue sertraline, this was added. (9) Myoclonic disorder: - As above continue with Keppra Plan Patient is medically and hemodynamically stable for discharge to SNF ([facility]) today. Plan has been discussed with Dr. Gilmer Calle who has also seen and evaluated this patient prior to discharge and agrees with aforementioned. Total Time Total Time Spent Total Time Spent (In Minutes): >30 minutes Discharge Plan Discharge Items Patient Disposition: Transfer Nursing Home Fac Reason For Visit: SIRS Discharge Diagnosis: Aspiration PNA Activity: Per Instructions section Non-emergency contact: Primary Care Provider Call non-emergency contact if: you have any medication questions, your symptoms worsen, your pain is not controlled and your temperature is above 101 Follow-up/Referrals: Lita Najera DO [Primary Care Provider] - Diet: Heart Healthy Diet Texture: Mechanical soft (ground) Liquid Consistency: Honey thick Addtl Attending Provider Instructions: You were seen in the hospital for sepsis due to an aspiration pneumonia. You were treated with antibiotics and clinically improved. It is likely that your pneumonia is due to difficulty swallowing with aspiration related to your previous stroke. You completed antibiotics during admission, and have not been prescribed additional antibiotics at time of discharge. Of note, regarding the aspirating (or food/liquid contents traveling through your trachea and into your lungs as opposed to into your stomach where it should go), this is continuing to occur. You and your family have elected to continue to "permissively" aspirate. This means that you could once again develop pneumonia due to this issue. With that said, if you should develop clinical signs or symptoms of pneumonia again, I would discuss with your primary care provider starting hospice care. If you develop any new or worsening symptoms including fever, chills, sweats, chest pain, chest pressure, difficulty breathing, uncontrolled nausea/vomiting, rash, wheezing, passing out or nearly passing out, bleeding, black/bloody bowel movements, or other new or concerning symptoms please call your primary care physician, or call 911 for re-evaluation in the emergency department if you are very concerned. Pending Studies at Discharge: No Stand-Alone Forms: [facility] Skilled Items Patient informed of condition?: Yes DNR: Yes Discharge Level of Care: Skilled Communicable Disease: No Discharge Prognosis: Stable Lines: None Urinary Catheter: No Medications and DC Order Prescriptions: Continued (DME) CPAP Supplies Misc See Rx Instructions .Route Qty: 1 0RF Rx Instructions: Fitting for new cpap mask (DME) CPAP Machine Misc See Rx Instructions .Route Qty: 1 0RF Rx Instructions: Auto Cpap titrating 4-15 cm pressure ipratropium-albuterol 0.5 mg-3 mg(2.5 mg base)/3 mL solution for nebulization 3 ml INHALATION Q4H PRN (Reason: Wheezing) Qty: 360 5RF Trelegy Ellipta 100-62.5-25 mcg blister with device 1 inh inhalation QAM Qty: 60 5RF levetiracetam 500 mg tablet 500 mg PO BID 90 Days Qty: 180 1RF sertraline 100 mg tablet See Rx Instructions .ROUTE .COMPLEX Qty: 30 2RF Rx Instructions: Take 1/2 tab PO daily x 6 days, then 1 tab PO daily atorvastatin 40 mg tablet 40 mg PO HS Qty: 90 1RF omeprazole 40 mg capsule,delayed release(DR/EC) 40 mg PO DAILYBB Qty: 90 1RF tramadol 50 mg tablet 50 mg PO Q6H PRN (Reason: Pain) Qty: 30 0RF prednisone 20 mg tablet 40 mg PO DAILY 5 Days Qty: 10 0RF fexofenadine [Shilpi Allergy] PO guaifenesin [Mucinex] 600 mg tablet extended release 12hr 600 mg PO BID Xarelto 20 mg tablet 20 mg PO QAM psyllium Packet 1 packet PO DAILY PRN (Reason: Constipation) Rx Instructions: mix into at least 8 oz of water or juice before administering resveratrol 50 mg capsule 50 mg PO QAM albuterol sulfate 90 mcg/actuation HFA aerosol inhaler 2 puff INHALATION Q4H PRN (Reason: Shortness Of Breath) Qty: 18 5RF (DME) Auto Titrating CPAP Misc See Rx Instructions .Route Qty: 1 0RF Rx Instructions: As directed acetaminophen [Tylenol Arthritis Pain] 650 mg Tablet Extended Release 650 mg PO Q8H PRN (Reason: Fever) omega-3 fatty acids-fish oil 360-1,200 mg Capsule 1 cap PO BID coQ10 (ubiquinol) 200 mg Capsule 200 mg PO QAM Rx Instructions: This medication was on the patient's med list, but he could not recall what it was. cholecalciferol (vitamin D3) 125 mcg (5,000 unit) capsule 125 mcg PO QAM Discharge Orders: Discharge Order (Routine); Ordered 07/10/22 Ordered By: Anika Bermeo Admission Data Admit Date/Time: 06/29/22 12:38 Attending Provider: Sanya Alvarez Admit Provider: Gilmer Calle Primary Care Provider: Lita Najera Other Providers: Laquita Mancilla ; Laquita Valderrama at [place] ; [facility] ; Henri Bateman Supervising Physician Co-Signing Physician Notes I supervised Anika Bermeo PA-C on the care of this patient. I interviewed and examined the patient independently of her. The plan is as written in her note except for any following changes/exceptions: None 76yo M here for treatment of pneumonia. Finished abx course. Seen today and is without shortness of breath or cough. No fevers/chills. Ready for discharge. Coding Level of Care Code D/C DAY MANAGEMENT >30 MINS Diagnoses SIRS (systemic inflammatory response syndrome) R65.10 Chronic obstructive pulmonary disease J44.9 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 HEYDI (obstructive sleep apnea) G47.33 PAF (paroxysmal atrial fibrillation) I48.0 Hypertension I10 Hypercholesterolemia E78.00 Depression F32.9 Myoclonic disorder G25.3
== END 2022-07-10 16:00 | DRG 871 ==
LOC: ED 08:29 → EDINP 12:38 → SUATTDRO 12:38 → 2W 14:41

== ENCOUNTER 2024-04-15 21:22 | Inpatient (IN) ==
[2024-04-15 22:12] LABS: Basophils # (auto) 0.05 K/uL (0.00-0.20); Basophils % (auto) 0.3 %; Eosinophils # (auto) 0.07 K/uL (0.00-0.50); Eosinophils % (auto) 0.4 %; Hematocrit (blood only) 45.3 % (42.0-52.0); Hemoglobin 14.6 g/dl (14.0-18.0); Immature Granulocytes # (auto) 0.07 K/uL (0.01-0.20); Immature Granulocytes % (auto) 0.4 %; Lymphocytes # (auto) 0.94 K/uL (1.20-3.40); Lymphocytes % (auto) 5.2 %; Mean Corpuscular Hemoglobin 27.7 pg (25.0-34.0); Mean Corpuscular Hgb Conc 32.2 g/dL (32.0-36.0); Mean Corpuscular Volume 85.8 fL (80.0-100.0); Monocytes # (auto) 1.38 K/uL (0.11-0.59); Monocytes % (auto) 7.6 %; Neutrophils # (auto) 15.53 K/uL (1.40-6.50); Neutrophils % (auto) 86.1 %; Platelet Count 227 K/uL (130-400); RDW Coefficient of Variation 13.7 % (11.5-14.5); RDW Standard Deviation 42.9 fL (36.4-46.3); Red Blood Count 5.28 M/uL (4.70-6.10); White Blood Count 18.04 K/ul (4.8-10.8)
[2024-04-15] MEDS: SODIUM CHLORIDE 0.9% 1,000 ML IV SCH (22:27)
[2024-04-15 22:30] LABS: Alanine Aminotransferase 19 U/L (7-52); Albumin Globulin Ratio 1.7 (0.9-2); Albumin Level 4.4 gm/dl (3.4-5.0); Alkaline Phosphatase 92 U/L (34-104); Anion Gap 7 (3-11); Aspartate Aminotransferase 18 U/L (13-39); BUN Creatinine Ratio 20.2 (10-20); Bilirubin,Total 0.6 mg/dl (0.2-1.0); Blood Urea Nitrogen 21 mg/dl (6-23); Calcium 9.1 mg/dl (8.6-10.3); Carbon Dioxide 31 mmol/L (21-32); Chloride 106 mmol/L (98-107); Est GFR (African American) 79.3 ml/min; Est GFR (Non-African American) 68.4 ml/min; Globulin 2.6 gm/dl (2.5-4.0); Glucose 134 mg/dl (70-99(Fasting)); Potassium 3.9 mmol/L (3.5-5.1); Sodium 144 mmol/L (136-145)
[2024-04-15 22:39] LABS: Appearance Urine Cloudy (Clear); Bilirubin Urine 1+ (Negative); Blood Urine 3+ (Negative); Color Urine Amber; Glucose Urine UA Negative (Negative); Ketones Urine 1+ (Negative); Leukocyte Esterase Urine Trace (Negative); Nitrite Urine Negative (Negative); Protein Urine 3+ (Negative); Specific Gravity Urine >= 1.030 (1.000-1.030); Urobilinogen Urine Negative (Negative); pH Urine 6.5 (4.5-7.5)
[2024-04-15 22:45] LABS: INR 1.1 (0.9-1.1); Partial Thromboplastin Ratio 1.1; Partial Thromboplastin Time 29 Seconds (21-31); Prothrombin Time 11.9 Seconds (9.0-12.0)
[2024-04-15 23:01] LABS: Bacteria Urine 1+ (None Seen); RBC Urine >20 /hpf (0-2)
[2024-04-15 23:02] LABS: WBC Urine 21-50 /hpf (0-5)
[2024-04-15] MEDS: cefTRIAXone SODIUM 2,000 MG/50 ML BAG IV STA (23:15)
--- NOTE | 2024-04-15 23:29 | CT Scan Report ---
Exam(s): CT HEAD Without Contrast EXAM: CT Head Without Intravenous Contrast CLINICAL HISTORY: Reason for exam: AMS, weakness. TECHNIQUE: Axial computed tomography images of the head/brain without intravenous contrast. CTDI is 65.14 mGy and DLP is 1100.35 mGy-cm. Automated exposure control was utilized for the study. A dose lowering technique was utilized adhering to the principles of ALARA. COMPARISON: Head CT 01/19/24. FINDINGS: Brain: Chronic bilateral basal ganglia lacunar infarcts. No mass effect or acute infarct. No acute hemorrhage. Moderate atrophy and moderate to severe, stable chronic white matter disease. Ventricles: No hydrocephalus or midline shift. Bones/joints: No acute bony lesion. Soft tissues: No scalp hematoma. Visualized Sinuses: Clear. Mastoid air cells: No mastoid effusion. IMPRESSION: 1. Stable age-related findings. 2. No acute infarct, bleed, or acute intracranial abnormality. Electronically signed by: Alejandra Oneil M.D. 04/15/24 23:28 PM
--- NOTE | 2024-04-15 23:46 | History & Physical Report ---
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: (8) Lupus anticoagulant positive: (9) CAD (coronary artery disease): (10) Diabetes mellitus: Plan Sepsis due to UTI/BPH with LUTS/hematuria- Follow urine culture and sensitivity Continue ceftriaxone 2 g IV daily begun in the ED Symptoms including nausea, vomiting, generalized weakness NSS at 125 mL/h CT abdomen pelvis notes mild perinephric edema There was initial concern regarding possible kidney stone, however, reading by stat rad is negative at this time Temporarily hold Xarelto due to hematuria Left hemiparesis late effect of previous CVA- Follow for generalized deconditioning, and may need PT/OT assessment prior to discharge CAD/hypertension/paroxysmal atrial fibrillation/lupus anticoagulant- Temporarily hold Xarelto due to hematuria, but will need to be resumed at earliest convenience Admit to medical telemetry Asthma- Continue routine inhalers History of Present Illness Chief Complaint: The patient is brought to the emergency department by EMS due to complaints of increased urinary frequency, blood in urine and progressively worsening generalized weakness. Primary Care Provider: Lita Najera DO The patient is a 78-year-old male with a past medical history including left rotator cuff arthropathy, recurrent aspiration, COPD, CVA with residual left hemiplegia, BPH with LUTS, HEYDI, paroxysmal SVT, paroxysmal atrial fibrillation, asthma, stented coronary artery, hypercholesterolemia, hypertension, lupus anticoagulant, factor VIII inhibitor disorder, CAD and diabetes mellitus. He presents to the emergency department with symptoms as noted above. He denies any recent travels or sick exposures. His is present in the room with him, and is able to help complete his HPI and ROS. Allergies Allergy/AdvReac Type Severity Reaction Status Date / Time salmeterol Allergy Mild Hives Verified 03/05/24 09:04 Home Medications Medication Instructions Recorded Confirmed Type acetaminophen 650 mg 650 mg PO Q8H PRN Fever 02/18/20 03/05/24 History tablet,extended release (Tylenol Arthritis Pain) resveratrol 50 mg capsule 50 mg PO QAM 07/13/21 03/05/24 History cholecalciferol (vitamin D3) 125 125 mcg PO QAM 07/25/21 03/05/24 History mcg (5,000 unit) capsule coQ10 (ubiquinol) 200 mg capsule 200 mg PO QAM 07/25/21 03/05/24 History Auto Titrating CPAP #1 ea 08/01/21 03/05/24 Rx CPAP Machine #1 ea 08/04/21 03/05/24 Rx CPAP Supplies #1 ea 08/04/21 03/05/24 Rx guaifenesin 600 mg tablet, 600 mg PO BID 11/23/21 03/05/24 History extended release 12 hr (Mucinex) fexofenadine [Shilpi Allergy] See Rx Instructions .Route 07/19/22 03/05/24 History .COMPLEX PRN Allergy Symptoms melatonin 10 mg tablet 10 mg PO HS PRN sleep #90 tabs 07/19/22 03/05/24 Rx turmeric root extract 500 mg tablet 500 mg PO DAILY #30 tabs 07/19/22 03/05/24 Rx fluticasone fur. 100 mcg-umeclid 1 inh inhalation DAILY #3 Inhalers 04/18/23 03/05/24 Rx 62.5 mcg-vilant 25 mcg inhalat.powder (Trelegy Ellipta) tramadol 50 mg tablet 50 mg PO Q6H PRN Pain #30 tabs 05/03/23 03/05/24 Rx atorvastatin 40 mg tablet 40 mg PO .every other day #90 tabs 06/17/23 03/05/24 Rx albuterol sulfate 90 mcg/actuation 2 puff inhalation Q4H PRN 08/19/23 03/05/24 Rx aerosol inhaler Shortness Of Breath #18 grams miscellaneous medical supply 1 ea miscellaneous BID #1 ea 11/05/23 03/05/24 Rx lidocaine 5 % topical patch 1 patch topical Q24H #30 ea 11/07/23 03/05/24 Rx ipratropium 0.5 mg-albuterol 3 mg 3 ml inhalation Q4H PRN Wheezing 12/02/23 03/05/24 Rx (2.5 mg base)/3 mL nebulization #360 mL soln sertraline 100 mg tablet See Rx Instructions .Route .COMPLEX 01/02/24 03/05/24 History miscellaneous medical supply #1 ea 01/09/24 03/05/24 Rx omeprazole 40 mg capsule,delayed 40 mg PO DAILYBB #90 caps 02/04/24 03/05/24 Rx release divalproex 500 mg tablet,extended 500 mg PO DAILY 90 days #90 tabs 02/10/24 03/05/24 Rx release 24 hr (Depakote ER) docusate sodium 100 mg capsule 100 mg PO DAILY 03/05/24 03/05/24 History (Colace) fish,bora,flax oils-om3,6,9no1 PO 03/05/24 03/05/24 History [Walton 3-6-9] polyethylene glycol 3350 17 17 g PO DAILY 03/05/24 03/05/24 History gram/dose oral powder (Miralax) rivaroxaban 20 mg tablet (Xarelto) 20 mg PO QAM #90 tabs 03/31/24 Rx Past Med/Surg History Problem List (Updated 04/16/24 @ 04:34 by Usman Moss MD) Sepsis due to urinary tract infection Rotator cuff arthropathy of left shoulder Excessive cerumen in both ear canals Recurrent aspiration events Hypomagnesemia Chronic obstructive pulmonary disease 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 (02/2020) Benign localized prostatic hyperplasia with lower urinary tract symptoms (LUTS) HEYDI (obstructive sleep apnea) (09/2014) Paroxysmal SVT (supraventricular tachycardia) PAF (paroxysmal atrial fibrillation) PAC (premature atrial contraction) Seizure-like activity History of tobacco abuse Dysphagia Acquired deviated nasal septum 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, including [place] History of respiratory failure Acute blood loss anemia Acute embolic stroke (~02/2020) Multifocal pneumonia Respiratory failure Hemoperitoneum Metabolic encephalopathy Acute ischemic stroke Pulmonary embolism Arthritis Surgical History Status post insertion of percutaneous endoscopic gastrostomy (PEG) tube History of sinus surgery History of bronchoscopy PEG (percutaneous endoscopic gastrostomy) status (~12/2019) History of cardiac catheterization (~05/01/10) H/O knee surgery Family History Mother Heart disease Hypertension Father Emphysema, unspecified Hearing loss Grandfather Stroke Son Stroke Son Stroke, Onset Age: 52 Denies family history of Ovarian cancer Prostate cancer Breast cancer Lung cancer Colorectal cancer Cancer Asthma Social History Smoking Status: Former smoker Tobacco Type: Cigarettes Age Started Using Tobacco: 15; Age Quit Using Tobacco: 30; packs per day: 2; Cigarettes Per Day: 1.5 PPD; Second Hand Exposure: No; Do You Dip or Chew Tobacco: No; Hx Alcohol Use: No Hx Substance Use: No Preferred Language: Beninese Communication Ability: Effective Visual Impairment: No Limitations Hearing Ability: Use of Hearing Aid Manager Shop Required: No Beliefs That Will Affect Care: None marital status: / Current Living Situation: Significant Other Current Living Situation Comment: with S/O current occupational status: retired 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 [employer] How many Children do You have: 1 Other Information That Helps Us Care for You: No other: Retired age 52 Feels Safe at Home: Yes Safety Concerns: Feels Safe At This Time Childhood Exposure to Second-Hand Smoke: Yes Diet: regular Diet Comment: regular caffeine: Yes during the past year weight has: remained stable Dental Care, Regularly: Yes Physical Activity Frequency: Does not Exercise Seatbelt Use: always Sunscreen Use: No Assistive Devices: CPAP, Hearing Aid - Bilateral and Walker Review of Systems Review of Systems: The patient denies chest pain, palpitations, shortness of breath, dyspnea on exertion, cough, lower extremity swelling, sore throat, fevers, chills, sweats, diarrhea, blood in stool, lightheadedness, dizziness, headache, memory loss, loss of consciousness, rash, or night sweats. The review of systems is otherwise negative other than for that already noted above, and at least 10 systems have been reviewed. Physical Exam Physical Exam: The patient is awake, alert and oriented 3, well developed and well nourished, normocephalic and atraumatic, lying in bed and in no acute distress. HEENT--PERRL, EOMI, mucous membranes and oropharynx dry. Neck--supple. No JVD. No bruits. Thyroid normal, trachea midline, no adenopathy. Heart--normal S1 and S2. No murmurs, rubs or gallops. Lungs--clear bilaterally, no respiratory distress, no accessory muscle use. Abdomen--normal bowel sounds and soft. Nontender. Nondistended. obese Extremities--no cyanosis or clubbing. No edema. Dermatologic--normal skin turgor, normal color, no abnormal lymph nodes, no rash. Neurologic--left hemiparesis Rheumatologic--left hemiparesis Psychiatric--normal affect. Results & Data Results & Data Vital Signs (Past 12 Hours) Vital Signs Temp Pulse Pulse Resp BP BP Pulse Ox 04/15/24 21:32 96 H 04/15/24 21:32 96 H 18 148/89 H 95 04/15/24 21:24 37 C 97 H 18 148/89 H 95 O2 Del Method 04/15/24 21:32 04/15/24 21:32 Room Air 04/15/24 21:24 Room Air Laboratory Results Laboratory Results WBC 18.04 K/ul (4.8-10.8) H 04/15/24 21:54 RBC 5.28 M/uL (4.70-6.10) 04/15/24 21:54 Hgb 14.6 g/dl (14.0-18.0) 04/15/24 21:54 Hct 45.3 % (42.0-52.0) 04/15/24 21:54 MCV 85.8 fL (80.0-100.0) 04/15/24 21:54 MCH 27.7 pg (25.0-34.0) 04/15/24 21:54 MCHC 32.2 g/dL (32.0-36.0) 04/15/24 21:54 RDW Std Deviation 42.9 fL (36.4-46.3) 04/15/24 21:54 RDW Coeff of [place] 13.7 % (11.5-14.5) 04/15/24 21:54 Plt Count 227 K/uL (130-400) 04/15/24 21:54 MPV 10.0 fL (9.4-12.4) 04/15/24 21:54 Immature Gran % (Auto) 0.4 % 04/15/24 21:54 Neut % (Auto) 86.1 % 04/15/24 21:54 Lymph % (Auto) 5.2 % 04/15/24 21:54 [place] % (Auto) 7.6 % 04/15/24 21:54 Eos % (Auto) 0.4 % 04/15/24 21:54 Baso % (Auto) 0.3 % 04/15/24 21:54 Neut # (Auto) 15.53 K/uL (1.40-6.50) H 04/15/24 21:54 Lymph # (Auto) 0.94 K/uL (1.20-3.40) L 04/15/24 21:54 [place] # (Auto) 1.38 K/uL (0.11-0.59) H 04/15/24 21:54 Eos # (Auto) 0.07 K/uL (0.00-0.50) 04/15/24 21:54 Baso # (Auto) 0.05 K/uL (0.00-0.20) 04/15/24 21:54 Immature Gran # (Auto) 0.07 K/uL (0.01-0.20) 04/15/24 21:54 PT 11.9 Seconds (9.0-12.0) 04/15/24 21:54 INR 1.1 (0.9-1.1) 04/15/24 21:54 APTT 29 Seconds (21-31) 04/15/24 21:54 PTT Ratio 1.1 04/15/24 21:54 Sodium 144 mmol/L (136-145) 04/15/24 21:54 Potassium 3.9 mmol/L (3.5-5.1) 04/15/24 21:54 Chloride 106 mmol/L (98-107) 04/15/24 21:54 Carbon Dioxide 31 mmol/L (21-32) 04/15/24 21:54 Anion Gap 7 (3-11) 04/15/24 21:54 BUN 21 mg/dl (6-23) 04/15/24 21:54 Creatinine 1.04 mg/dl (0.6-1.4) 04/15/24 21:54 Est Cr Clr Drug Dosing Not Reportable 04/15/24 21:54 Est GFR ( Amer) 79.3 ml/min 04/15/24 21:54 Est GFR (Non-Af Amer) 68.4 ml/min 04/15/24 21:54 BUN/Creatinine Ratio 20.2 (10-20) H 04/15/24 21:54 Glucose 134 mg/dl (70-99(Fasting)) H 04/15/24 21:54 Lactate 1.2 mmol/L (0.4-2.0) 04/15/24 23:32 Calcium 9.1 mg/dl (8.6-10.3) 04/15/24 21:54 Total Bilirubin 0.6 mg/dl (0.2-1.0) 04/15/24 21:54 AST 18 U/L (13-39) 04/15/24 21:54 ALT 19 U/L (7-52) 04/15/24 21:54 Alkaline Phosphatase 92 U/L (34-104) 04/15/24 21:54 Total Protein 7.0 gm/dl (6.0-8.3) 04/15/24 21:54 Albumin 4.4 gm/dl (3.4-5.0) 04/15/24 21:54 Globulin 2.6 gm/dl (2.5-4.0) 04/15/24 21:54 Albumin/Globulin Ratio 1.7 (0.9-2) 04/15/24 21:54 Urine Color Sheila 04/15/24 22:20 Urine Appearance Cloudy (Clear) A 04/15/24 22:20 Urine pH 6.5 (4.5-7.5) 04/15/24 22:20 Ur Specific [place] >= 1.030 (1.000-1.030) 04/15/24 22:20 Urine Protein 3+ (Negative) H 04/15/24 22:20 Urine Glucose (UA) Negative (Negative) 04/15/24 22:20 Urine Ketones 1+ (Negative) H 04/15/24 22:20 Urine Blood 3+ (Negative) H 04/15/24 22:20 Urine Nitrite Negative (Negative) 04/15/24 22:20 Urine Bilirubin 1+ (Negative) H 04/15/24 22:20 Urine Urobilinogen Negative (Negative) 04/15/24 22:20 Ur Leukocyte Esterase Trace (Negative) H 04/15/24 22:20 Urine RBC >20 /hpf (0-2) H 04/15/24 22:20 Urine WBC 21-50 /hpf (0-5) H 04/15/24 22:20 Ur Epithelial Cells 11-20 /hpf (0-2) H 04/15/24 22:20 Urine Bacteria 1+ (None Seen) H 04/15/24 22:[address] 04/15/24 21:59 Exam(s): CT HEAD Without Contrast EXAM: CT Head Without Intravenous Contrast CLINICAL HISTORY: Reason for exam: AMS, weakness. TECHNIQUE: Axial computed tomography images of the head/brain without intravenous contrast. CTDI is 65.14 mGy and DLP is 1100.35 mGy-cm. Automated exposure control was utilized for the study. A dose lowering technique was utilized adhering to the principles of ALARA. COMPARISON: Head CT 01/19/24. FINDINGS: Brain: Chronic bilateral basal ganglia lacunar infarcts. No mass effect or acute infarct. No acute hemorrhage. Moderate atrophy and moderate to severe, stable chronic white matter disease. Ventricles: No hydrocephalus or midline shift. Bones/joints: No acute bony lesion. Soft tissues: No scalp hematoma. Visualized Sinuses: Clear. Mastoid air cells: No mastoid effusion. IMPRESSION: 1. Stable age-related findings. 2. No acute infarct, bleed, or acute intracranial abnormality. Electronically signed by: Alejandra Oneil M.D. 04/15/24 23:28 PM Abdomen/Pelvis CT 04/15/24 23:15 Exam(s): CT ABDOMEN + PELVIS Without Contrast EXAM: CT Abdomen and Pelvis Without Intravenous Contrast CLINICAL HISTORY: Reason for exam: hematuria. TECHNIQUE: Axial computed tomography images of the abdomen and pelvis without intravenous contrast. Automated exposure control was utilized for the study. A dose lowering technique was utilized adhering to the principles of ALARA. Metal artifact right lower chest external monitor device. COMPARISON: CT abdomen pelvis 06/29/22. FINDINGS: Lung bases: Improved aeration right lower lobe lung with mild atelectasis or scarring remaining, in part relates to an elevated right hemidiaphragm. Liver: Unremarkable. Gallbladder and bile ducts: Normal gallbladder. No ductal dilation. Pancreas: Fatty replaced gland. No ductal dilation. Spleen: Unremarkable. Adrenals: Unremarkable. Kidneys and ureters: Mild bilateral perinephric edema, stable No renal stone or hydronephrosis. Stomach and bowel: No obstruction. Diverticulosis without acute diverticulitis. Appendix: Normal. Intraperitoneal space: No free air or fluid. Bones/joints: No acute fracture. Soft tissues: Stable bilateral fat-containing inguinal hernias and a large fat-containing umbilical hernia. Vasculature: No aortic aneurysm. Lymph nodes: No enlarged lymph nodes. Bladder: Collapsed, poorly evaluated, cystitis not excluded by CT. Reproductive: Unremarkable as visualized. IMPRESSION: 1. No acute intra-abdominal or intrapelvic abnormality. 2. Multiple fat-containing hernias are stable. 3. Diverticulosis without acute diverticulitis. Electronically signed by: Alejandra Oneil M.D. 04/16/24 01:40 AM Code Status & VTE Plan Code Status DNR/DNI VTE Prophylaxis Plan VTE Prophylaxis will be ordered: Yes PG Care Time/CCT Total # of Minutes Spent Total Time Spent with Patient: Total time spent is greater than 50% in coordination of care (as documented) at patient's floor/unit and/or counseling patient: Coding Level of Care Code 14042 INT INP/OBS CARE 3/75MIN Diagnoses Sepsis due to urinary tract infection A41.9; N39.0 Benign localized prostatic hyperplasia with lower urinary tract symptoms (LUTS) N40.1 HEYDI (obstructive sleep apnea) G47.33 PAF (paroxysmal atrial fibrillation) I48.0 Stented coronary artery Z95.5 Primary hypertension I10 Hypertension type: primary hypertension Hemiparesis affecting left side as late effect of cerebrovascular accident I69.354 Lupus anticoagulant positive R76.0 Coronary artery disease involving [place] coronary artery of [place] heart without angina pectoris I25.10 Coronary Disease-Associated Artery/Lesion type: [place] artery [place] vs. transplanted heart: [place] heart Associated angina: without angina Type 2 diabetes mellitus without complication, without long-term current use of insulin E11.9 Diabetes mellitus type: type 2 Diabetes mellitus intermediate manager insulin use: without intermediate manager use Diabetes mellitus complication status: without complication (6) Hypertension Hypertension type: primary hypertension Qualified Code(s): I10 - Essential (primary) hypertension (9) CAD (coronary artery disease) Coronary Disease-Associated Artery/Lesion type: [place] artery [place] vs. transplanted heart: [place] heart Associated angina: without angina Qualified Code(s): I25.10 - Atherosclerotic heart disease of [place] coronary artery without angina pectoris (10) Diabetes mellitus Diabetes mellitus type: type 2 Diabetes mellitus alf insulin use: without intermediate manager use Diabetes mellitus complication status: without complication Qualified Code(s): E11.9 - Type 2 diabetes mellitus without complications
[2024-04-15] MEDS ORDERED: ALBUTEROL HFA 8 GM INHALER INH PRN (23:54)
[2024-04-16] MEDS ORDERED: MELATONIN 3 MG TAB PO PRN (00:16)
[2024-04-16] MEDS ORDERED: ONDANSETRON INJ 2 MG/ML 2 ML VIAL IV PRN (00:49)
[2024-04-16] MEDS ORDERED: ACETAMINOPHEN 325 MG TAB PO PRN (00:50)
[2024-04-16] MEDS ORDERED: HYDROmorphone INJ 0.5 MG/0.5 ML SYR IV PRN (00:53)
[2024-04-16] MEDS: ONDANSETRON INJ 2 MG/ML 2 ML VIAL IV PRN (01:11)
[2024-04-16] MEDS: traMADol HCL 50 MG TABLET PO PRN (01:11)
--- NOTE | 2024-04-16 01:20 | Emergency Department Note ---
Impression & Plan Acute UTI, Weakness generalized, H/O arterial ischemic stroke ED Provider Note CHIEF COMPLAINT: Weakness, frequent urination, bloody urine HISTORY OF PRESENT ILLNESS: This 78-year-old male patient with past medical history of rotator cuff arthropathy, COPD, CVA, BPH, obstructive sleep apnea, SVT, A-fib on anticoagulation, CAD with stent in place, lupus anticoagulant, factor VIII inhibitor disorder, diabetes mellitus presents to the emergency department by ambulance for complaints of urinary frequency, bloody urine and weakness. The patient has residual stroke deficits including left-sided hemiplegia. Patient has no complaints at this time, much of the history is obtained by nursing staff from EMS report. REVIEW OF SYSTEMS: A review of systems was performed with positives and pertinent negatives listed in the history of present illness. 10 systems were reviewed and are otherwise negative. ALLERGIES: see below MEDICATIONS: see below PMH: see below SOCIAL HISTORY: see below DDx: Dehydration, UTI, acute coronary syndrome, pneumonia, PE/DVT, electrolyte disturbance among others. PHYSICAL EXAM: Vital signs reviewed. General: Chronically ill-appearing 78-year-old male, in no significant distress. HEENT: No scleral icterus, PERRLA, neck supple. Moist mucous membranes Cardiovascular: Regular rate and rhythm, no extra sounds. Pulmonary: Clear to auscultation bilaterally, normal work of breathing. Abdomen: Soft, nontender, nondistended, positive bowel sounds. Musculoskeletal: Atraumatic, no peripheral edema. Neurologic: Patient awake alert and oriented x 3 left upper Skin: Warm, dry, no rash EMERGENCY DEPARTMENT COURSE/MDM: This patient was evaluated and appeared to be in no significant distress. IV access was obtained and laboratory work was drawn. Patient's laboratory work is significant for an elevated WBC, positive UA. Lactate is normal. Patient was medicated with 2 g of IV ceftriaxone, gently hydrated with normal saline solution. Chest x-ray was performed and reveals no evidence of infection, head CT is negative for acute process. Abdominal and pelvis CT reveals evidence of diverticulosis without acute diverticulitis. EKG reveals a prolonged QT interval, but otherwise is unchanged. Patient's case has been discussed with the hospitalist service who will evaluate the patient for admission and further management. MONITORING: An order for cardiac monitoring was placed and the patient is noted to be in a sinus rhythm at 69 beats per minute. RADIOLOGY: Head CT to my interpretation reveals no evidence of acute intracranial abnormality. Chest x-ray to my interpretation reveals no focal lung consolidation or failure. Abdominal/pelvis CT per radiology: IMPRESSION: 1. No acute intra-abdominal or intrapelvic abnormality. 2. Multiple fat-containing hernias are stable. 3. Diverticulosis without acute diverticulitis. EKG: To my interpretation reveals a sinus tachycardia with a first-degree AV block at 105 bpm. PACs are noted. Right bundle branch block prolonged QTc at 602. When compared to previous dated March 03, 2023, QTc has lengthened. DISPOSITION: Admission Past Med/Surg History Problem List (Updated 04/18/24 @ 11:18 by Radha Frank MD) H/O arterial ischemic stroke (Acute) Weakness generalized (Acute) Acute UTI (Acute) Metabolic encephalopathy Sepsis due to urinary tract infection Rotator cuff arthropathy of left shoulder Excessive cerumen in both ear canals Recurrent aspiration events Hypomagnesemia Chronic obstructive pulmonary disease 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 (02/2020) Benign localized prostatic hyperplasia with lower urinary tract symptoms (LUTS) HEYDI (obstructive sleep apnea) (09/2014) Paroxysmal SVT (supraventricular tachycardia) PAF (paroxysmal atrial fibrillation) PAC (premature atrial contraction) Seizure-like activity History of tobacco abuse Dysphagia Acquired deviated nasal septum 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, including [place] History of respiratory failure Acute blood loss anemia Acute embolic stroke (~02/2020) Multifocal pneumonia Respiratory failure Hemoperitoneum Metabolic encephalopathy Acute ischemic stroke Pulmonary embolism Arthritis Surgical History Status post insertion of percutaneous endoscopic gastrostomy (PEG) tube History of sinus surgery History of bronchoscopy PEG (percutaneous endoscopic gastrostomy) status (~12/2019) History of cardiac catheterization (~05/01/10) H/O knee surgery Family History Mother Heart disease Hypertension Father Emphysema, unspecified Hearing loss Grandfather Stroke Son Stroke Son Stroke, Onset Age: 52 Denies family history of Ovarian cancer Prostate cancer Breast cancer Lung cancer Colorectal cancer Cancer Asthma Social History Smoking Status: Former smoker Tobacco Type: Cigarettes Age Started Using Tobacco: 15; Age Quit Using Tobacco: 30; packs per day: 2; Cigarettes Per Day: 1.5 PPD; Second Hand Exposure: No; Do You Dip or Chew Tobacco: No; Hx Alcohol Use: No Hx Substance Use: No Preferred Language: Mosotho Communication Ability: Effective Visual Impairment: No Limitations Hearing Ability: Use of Hearing Aid Internal Security Manager Required: No Beliefs That Will Affect Care: None marital status: / Current Living Situation: Significant Other Current Living Situation Comment: with S/O current occupational status: retired 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 [employer] How many Children do You have: 1 Other Information That Helps Us Care for You: No other: Retired age 52 Feels Safe at Home: Yes Safety Concerns: Feels Safe At This Time Childhood Exposure to Second-Hand Smoke: Yes Diet: regular Diet Comment: regular caffeine: Yes during the past year weight has: remained stable Dental Care, Regularly: Yes Physical Activity Frequency: Does not Exercise Seatbelt Use: always Sunscreen Use: No Assistive Devices: CPAP, Walker and Wheelchair Allergies Allergies Allergy/AdvReac Type Severity Reaction Status Date / Time salmeterol Allergy Mild Hives Verified 03/05/24 09:04 Home Meds Home Medications Medication Instructions Recorded Confirmed acetaminophen 650 mg 650 mg PO Q8H PRN Fever 02/18/20 03/05/24 tablet,extended release (Tylenol Arthritis Pain) resveratrol 50 mg capsule 50 mg PO QAM 07/13/21 03/05/24 cholecalciferol (vitamin D3) 125 125 mcg PO QAM 07/25/21 03/05/24 mcg (5,000 unit) capsule coQ10 (ubiquinol) 200 mg capsule 200 mg PO QAM 07/25/21 03/05/24 guaifenesin 600 mg tablet, 600 mg PO BID 11/23/21 03/05/24 extended release 12 hr (Mucinex) fexofenadine [Shilpi Allergy] See Rx Instructions .Route 07/19/22 03/05/24 .COMPLEX PRN Allergy Symptoms sertraline 100 mg tablet See Rx Instructions .Route .COMPLEX 01/02/24 03/05/24 docusate sodium 100 mg capsule 100 mg PO DAILY 03/05/24 03/05/24 (Colace) fish,bora,flax oils-om3,6,9no1 PO 03/05/24 03/05/24 [[place] 3-6-9] polyethylene glycol 3350 17 17 g PO DAILY 03/05/24 03/05/24 gram/dose oral powder (Miralax) Previous Rx's Medication Instructions Recorded Auto Titrating CPAP #1 ea 08/01/21 CPAP Machine #1 ea 08/04/21 CPAP Supplies #1 ea 08/04/21 melatonin 10 mg tablet 10 mg PO HS PRN sleep #90 tabs 07/19/22 turmeric root extract 500 mg tablet 500 mg PO DAILY #30 tabs 07/19/22 fluticasone fur. 100 mcg-umeclid 1 inh inhalation DAILY #3 Inhalers 04/18/23 62.5 mcg-vilant 25 mcg inhalat.powder (Trelegy Ellipta) tramadol 50 mg tablet 50 mg PO Q6H PRN Pain #30 tabs 05/03/23 atorvastatin 40 mg tablet 40 mg PO .every other day #90 tabs 06/17/23 albuterol sulfate 90 mcg/actuation 2 puff inhalation Q4H PRN 08/19/23 aerosol inhaler Shortness Of Breath #18 grams VIPerkscellaneous medical supply 1 ea miscellaneous BID #1 ea 11/05/23 lidocaine 5 % topical patch 1 patch topical Q24H #30 ea 11/07/23 ipratropium 0.5 mg-albuterol 3 mg 3 ml inhalation Q4H PRN Wheezing 12/02/23 (2.5 mg base)/3 mL nebulization #360 mL soln miscellaneous medical supply #1 ea 01/09/24 omeprazole 40 mg capsule,delayed 40 mg PO DAILYBB #90 caps 02/04/24 release divalproex 500 mg tablet,extended 500 mg PO DAILY 90 days #90 tabs 02/10/24 release 24 hr (Depakote ER) rivaroxaban 20 mg tablet (Xarelto) 20 mg PO QAM #90 tabs 03/31/24 Results & Data (ED) Vital Signs Vital Signs - 24 hr 04/15/24 21:24 04/15/24 21:32 04/15/24 21:32 Temperature 37 C Temperature Source Oral Pulse Rate 97 H 96 H Pulse Rate [Finger] 96 H Pulse Rate from SpO2 Sensor Pulse Rhythm Regular Pulse Rhythm [Finger] Regular Pulse Strength Normal Pulse Strength [Finger] Normal Respiratory Rate 18 18 Respiratory Effort / Characteristics Non-Labored Spontaneous Non-Labored Spontaneous Respiratory Depth Normal Normal Blood Pressure 148/89 H Blood Pressure [Right Arm] 148/89 H Blood Pressure Mean 108 Blood Pressure Mean [Right Arm] 108 Blood Pressure Position Sitting Blood Pressure Position [Right Arm] Sitting Pulse Oximetry 95 95 Oxygen Delivery Method Room Air Room Air Sepsis Recent Fever Within 48 Hours No Sepsis New/Unexplained Change in Mental Status N/A Sepsis Action Taken by Nursing No Action Required 04/15/24 23:11 Temperature Temperature Source Pulse Rate 87 Pulse Rate [Finger] Pulse Rate from SpO2 Sensor 88 Pulse Rhythm Pulse Rhythm [Finger] Pulse Strength Pulse Strength [Finger] Respiratory Rate 18 Respiratory Effort / Characteristics Respiratory Depth Blood Pressure Blood Pressure [Right Arm] Blood Pressure Mean Blood Pressure Mean [Right Arm] Blood Pressure Position Blood Pressure Position [Right Arm] Pulse Oximetry 96 Oxygen Delivery Method Room Air Sepsis Recent Fever Within 48 Hours Sepsis New/Unexplained Change in Mental Status Sepsis Action Taken by Custodial Medications Current Medication List: was personally reviewed by me Laboratory Data Attestation: I reviewed the patient's lab results. 04/18/24 06:29 04/18/24 06:29 Lab Results 04/15/24 04/15/24 04/15/24 Range/Units 21:54 22:20 23:32 WBC 18.04 H (4.8-10.8) K/ul RBC 5.28 (4.70-6.10) M/uL Hgb 14.6 (14.0-18.0) g/dl Hct 45.3 (42.0-52.0) % MCV 85.8 (80.0-100.0) fL MCH 27.7 (25.0-34.0) pg MCHC 32.2 (32.0-36.0) g/dL RDW Std Deviation 42.9 (36.4-46.3) fL RDW Coeff of [place] 13.7 (11.5-14.5) % Plt Count 227 (130-400) K/uL MPV 10.0 (9.4-12.4) fL Immature Gran % (Auto) 0.4 % Neut % (Auto) 86.1 % Lymph % (Auto) 5.2 % [place] % (Auto) 7.6 % Eos % (Auto) 0.4 % Baso % (Auto) 0.3 % Neut # (Auto) 15.53 H (1.40-6.50) K/uL Lymph # (Auto) 0.94 L (1.20-3.40) K/uL [place] # (Auto) 1.38 H (0.11-0.59) K/uL Eos # (Auto) 0.07 (0.00-0.50) K/uL Baso # (Auto) 0.05 (0.00-0.20) K/uL Immature Gran # (Auto) 0.07 (0.01-0.20) K/uL PT 11.9 (9.0-12.0) Seconds INR 1.1 (0.9-1.1) APTT 29 (21-31) Seconds PTT Ratio 1.1 Sodium 144 (136-145) mmol/L Potassium 3.9 (3.5-5.1) mmol/L Chloride 106 (98-107) mmol/L Carbon Dioxide 31 (21-32) mmol/L Anion Gap 7 (3-11) BUN 21 (6-23) mg/dl Creatinine 1.04 (0.6-1.4) mg/dl Est Cr Clr Drug Dosing Not Reportable Est GFR ( Amer) 79.3 ml/min Est GFR (Non-Af Amer) 68.4 ml/min BUN/Creatinine Ratio 20.2 H (10-20) Glucose 134 H (70-99(Fasting)) mg/dl Lactate 1.2 (0.4-2.0) mmol/L Calcium 9.1 (8.6-10.3) mg/dl Total Bilirubin 0.6 (0.2-1.0) mg/dl AST 18 (13-39) U/L ALT 19 (7-52) U/L Alkaline Phosphatase 92 (34-104) U/L Total Protein 7.0 (6.0-8.3) gm/dl Albumin 4.4 (3.4-5.0) gm/dl Globulin 2.6 (2.5-4.0) gm/dl Albumin/Globulin Ratio 1.7 (0.9-2) Urine Color Sheila Urine Appearance Cloudy A (Clear) Urine pH 6.5 (4.5-7.5) Ur Specific [place] >= 1.030 (1.000-1.030) Urine Protein 3+ H (Negative) Urine Glucose (UA) Negative (Negative) Urine Ketones 1+ H (Negative) Urine Blood 3+ H (Negative) Urine Nitrite Negative (Negative) Urine Bilirubin 1+ H (Negative) Urine Urobilinogen Negative (Negative) Ur Leukocyte Esterase Trace H (Negative) Urine RBC >20 H (0-2) /hpf Urine WBC 21-50 H (0-5) /hpf Ur Epithelial Cells 11-20 H (0-2) /hpf Urine Bacteria 1+ H (None Seen) Administered Medications Atorvastatin Calcium (Atorvastatin 40 Mg Tab) 40 mg PO Q48H [facility] Stop: 05/16/24 08:59 Last Admin: 04/18/24 08:23 Dose: 40 mg Documented By: Admin: 04/16/24 09:16 Dose: 40 mg Documented By: HUA Divalproex Sodium (Divalproex Extended Release 500 Mg Tab) 500 mg PO DAILY ADOLFO Stop: 05/16/24 08:59 Last Admin: 04/18/24 08:23 Dose: 500 mg Documented By: Admin: 04/17/24 08:01 Dose: 500 mg Documented By: Admin: 04/16/24 09:16 Dose: 500 mg Documented By: HUA Docusate Sodium (Docusate Sodium 100 Mg Cap) 100 mg PO DAILY ADOLFO Stop: 05/16/24 08:59 Last Admin: 04/18/24 08:23 Dose: 100 mg Documented By: Admin: 04/17/24 08:01 Dose: 100 mg Documented By: Admin: 04/16/24 09:16 Dose: 100 mg Documented By: HUA Fluticasone Furoate (Fluticasone Furoate 100mcg 14 Puffs/Inhaler) 1 puffs INH DAILY ADOLFO Stop: 05/16/24 08:59 Last Admin: 04/18/24 08:24 Dose: 1 puffs Documented By: Admin: 04/17/24 08:02 Dose: 1 puffs Documented By: Admin: 04/16/24 09:17 Dose: 1 puffs Documented By: UHA Guaifenesin (Guaifenesin 600 Mg Tabcr) 600 mg PO BID ADOLFO Stop: 05/16/24 08:59 Last Admin: 04/18/24 08:23 Dose: 600 mg Documented By: Admin: 04/17/24 21:28 Dose: 600 mg Documented By: Admin: 04/17/24 08:01 Dose: 600 mg Documented By: Admin: 04/16/24 20:13 Dose: 600 mg Documented By: Admin: 04/16/24 09:16 Dose: 600 mg Documented By: HUA Sodium Chloride (Nss) 1,000 mls @ 60 mls/hr IV .[id number] ADOLFO Stop: 05/15/24 22:14 Last Admin: 04/18/24 06:00 Dose: 60 mls/hr Documented By: Admin: 04/18/24 06:00 Dose: Not Given Documented By: Infusion: 04/18/24 06:00 Dose: Infused Documented By: Admin: 04/17/24 13:21 Dose: 60 mls/hr Documented By: Infusion: 04/17/24 13:21 Dose: Infused Documented By: Infusion: 04/17/24 09:18 Dose: 60 mls/hr Documented By: Admin: 04/17/24 00:21 Dose: 80 mls/hr Documented By: Infusion: 04/16/24 21:45 Dose: Infused Documented By: Admin: 04/16/24 09:15 Dose: 80 mls/hr Documented By: Infusion: 04/16/24 06:27 Dose: Infused Documented By: Admin: 04/15/24 22:27 Dose: 125 mls/hr Documented By: BELÉN Ceftriaxone Sodium (Rocephin) 2,000 mg in 50 mls @ 100 mls/hr IV Q24H ADOLFO Stop: 04/26/24 20:59 Last Infusion: 04/17/24 21:58 Dose: Infused Documented By: Admin: 04/17/24 21:28 Dose: 100 mls/hr Documented By: Infusion: 04/16/24 21:10 Dose: Infused Documented By: Admin: 04/16/24 20:13 Dose: 100 mls/hr Documented By: HIRA Lidocaine (Lidocaine 5% 1 Patch) 1 patch TD QAM [facility] Stop: 05/17/24 08:59 Last Admin: 04/18/24 08:24 Dose: 1 patch Documented By: Admin: 04/17/24 08:01 Dose: 1 patch Documented By: MARIBETH Miscellaneous (Remove Lidoderm Patch) 1 each N/A DAILY@2100 [facility] Stop: 05/16/24 20:59 Last Admin: 04/17/24 21:29 Dose: Not Given Documented By: Admin: 04/16/24 20:24 Dose: Not Given Documented By: HIRA Ondansetron HCl (Ondansetron Inj 2 Mg/Ml 2 Ml Vial) 4 mg IV Q6H PRN PRN Reason: Nausea Stop: 05/16/24 00:49 Last Admin: 04/16/24 06:41 Dose: 4 mg Documented By: Admin: 04/16/24 01:11 Dose: 4 mg Documented By: DANIELE Pantoprazole Sodium (Pantoprazole 40 Mg Tab) 40 mg PO DAILYBB [facility] Stop: 05/16/24 06:29 Last Admin: 04/18/24 06:00 Dose: 40 mg Documented By: Admin: 04/17/24 05:48 Dose: 40 mg Documented By: Admin: 04/16/24 06:42 Dose: 40 mg Documented By: DANIELE Polyethylene Glycol (Polyethylene (Miralax) 17 Gm Pack) 17 gm PO DAILY ADOLFO Stop: 05/16/24 08:59 Last Admin: 04/18/24 08:23 Dose: 17 gm Documented By: Admin: 04/17/24 08:01 Dose: 17 gm Documented By: Admin: 04/16/24 09:16 Dose: 17 gm Documented By: HUA Rivaroxaban (Rivaroxaban 20 Mg Tab) 20 mg PO DAILY ADOLFO Stop: 05/17/24 13:04 Last Admin: 04/18/24 08:23 Dose: 20 mg Documented By: Admin: 04/17/24 14:13 Dose: 20 mg Documented By: MARIBETH Sertraline HCl (Sertraline Hcl 100 Mg Tablet) 100 mg PO DAILY ADOLFO Stop: 05/16/24 08:59 Last Admin: 04/18/24 08:23 Dose: 100 mg Documented By: Admin: 04/17/24 08:01 Dose: 100 mg Documented By: Admin: 04/16/24 09:16 Dose: 100 mg Documented By: HUA Tramadol HCl (Tramadol Hcl 50 Mg Tablet) 50 mg PO Q6H PRN PRN Reason: Moderate Pain (Scale 4, 5, 6) Stop: 05/15/24 23:58 Last Admin: 04/16/24 01:11 Dose: 50 mg Documented By: DANIELE Umeclidinium/Vilanterol (Umeclidinium/Vilanterol 62.5/25mcg 7 Puffs/Inhaler) 1 puffs INH DAILY ADOLFO Stop: 05/16/24 08:59 Last Admin: 04/18/24 08:23 Dose: 1 puffs Documented By: Admin: 04/17/24 08:02 Dose: 1 puffs Documented By: Admin: 04/16/24 09:16 Dose: 1 puffs Documented By: HUA Vitamin D (Cholecalciferol 125 Mcg (5,000 Units) Tab) 125 mcg PO QAM ADOLFO Stop: 05/16/24 08:59 Last Admin: 04/18/24 08:23 Dose: 125 mcg Documented By: Admin: 04/17/24 08:01 Dose: 125 mcg Documented By: Admin: 04/16/24 09:16 Dose: 125 mcg Documented By: HUA Discontinued Medications Ceftriaxone Sodium (Rocephin) 2,000 mg in 50 mls @ 100 mls/hr IV NOW STA Stop: 04/15/24 23:22 Last Infusion: 04/16/24 00:22 Dose: Infused Documented By: Admin: 04/15/24 23:15 Dose: 100 mls/hr Documented By: AMANDA Imaging Data Radiologist's Impression: Head CT 04/15/24 21:59 Exam(s): CT HEAD Without Contrast EXAM: CT Head Without Intravenous Contrast CLINICAL HISTORY: Reason for exam: AMS, weakness. TECHNIQUE: Axial computed tomography images of the head/brain without intravenous contrast. CTDI is 65.14 mGy and DLP is 1100.35 mGy-cm. Automated exposure control was utilized for the study. A dose lowering technique was utilized adhering to the principles of ALARA. COMPARISON: Head CT 01/19/24. FINDINGS: Brain: Chronic bilateral basal ganglia lacunar infarcts. No mass effect or acute infarct. No acute hemorrhage. Moderate atrophy and moderate to severe, stable chronic white matter disease. Ventricles: No hydrocephalus or midline shift. Bones/joints: No acute bony lesion. Soft tissues: No scalp hematoma. Visualized Sinuses: Clear. Mastoid air cells: No mastoid effusion. IMPRESSION: 1. Stable age-related findings. 2. No acute infarct, bleed, or acute intracranial abnormality. Electronically signed by: Alejandra Oneil M.D. 04/15/24 23:28 PM Discharge Plan Visit Data Chief Complaint: Illness Stated Complaint: WEAKNESS, ILLNESS ED Provider: Radha Frank Discharge Problem: Acute UTI, Weakness generalized, H/O arterial ischemic stroke Patient Disposition: Admitted As Inpatient Discharge Instructions Interventions: ED Discharge Assessment Last Done: 04/16/24 00:17
--- NOTE | 2024-04-16 01:41 | CT Scan Report ---
Exam(s): CT ABDOMEN + PELVIS Without Contrast EXAM: CT Abdomen and Pelvis Without Intravenous Contrast CLINICAL HISTORY: Reason for exam: hematuria. TECHNIQUE: Axial computed tomography images of the abdomen and pelvis without intravenous contrast. Automated exposure control was utilized for the study. A dose lowering technique was utilized adhering to the principles of ALARA. Metal artifact right lower chest external monitor device. COMPARISON: CT abdomen pelvis 06/29/22. FINDINGS: Lung bases: Improved aeration right lower lobe lung with mild atelectasis or scarring remaining, in part relates to an elevated right hemidiaphragm. Liver: Unremarkable. Gallbladder and bile ducts: Normal gallbladder. No ductal dilation. Pancreas: Fatty replaced gland. No ductal dilation. Spleen: Unremarkable. Adrenals: Unremarkable. Kidneys and ureters: Mild bilateral perinephric edema, stable No renal stone or hydronephrosis. Stomach and bowel: No obstruction. Diverticulosis without acute diverticulitis. Appendix: Normal. Intraperitoneal space: No free air or fluid. Bones/joints: No acute fracture. Soft tissues: Stable bilateral fat-containing inguinal hernias and a large fat-containing umbilical hernia. Vasculature: No aortic aneurysm. Lymph nodes: No enlarged lymph nodes. Bladder: Collapsed, poorly evaluated, cystitis not excluded by CT. Reproductive: Unremarkable as visualized. IMPRESSION: 1. No acute intra-abdominal or intrapelvic abnormality. 2. Multiple fat-containing hernias are stable. 3. Diverticulosis without acute diverticulitis. Electronically signed by: Alejandra Oneil M.D. 04/16/24 01:40 AM
--- NOTE | 2024-04-16 04:41 | Billing Data ---
Date of Service April 16, 2024 Coding Level of Care Code 22881 INT INP/OBS CARE
[2024-04-16] MEDS: PANTOprazole 40 MG TAB PO SCH (06:42)
[2024-04-16 07:01] LABS: Basophils # (auto) 0.04 K/uL (0.00-0.20); Basophils % (auto) 0.2 %; Eosinophils # (auto) 0.02 K/uL (0.00-0.50); Eosinophils % (auto) 0.1 %; Hematocrit (blood only) 40.4 % (42.0-52.0); Hemoglobin 13.2 g/dl (14.0-18.0); Immature Granulocytes # (auto) 0.09 K/uL (0.01-0.20); Immature Granulocytes % (auto) 0.5 %; Lymphocytes # (auto) 0.76 K/uL (1.20-3.40); Lymphocytes % (auto) 4.4 %; Mean Corpuscular Hemoglobin 28.4 pg (25.0-34.0); Mean Corpuscular Hgb Conc 32.7 g/dL (32.0-36.0); Mean Corpuscular Volume 87.1 fL (80.0-100.0); Mean Platelet Volume 10.4 fL (9.4-12.4); Monocytes # (auto) 1.22 K/uL (0.11-0.59); Monocytes % (auto) 7.1 %; Neutrophils # (auto) 15.16 K/uL (1.40-6.50); Neutrophils % (auto) 87.7 %; Platelet Count 200 K/uL (130-400); RDW Standard Deviation 44.2 fL (36.4-46.3); Red Blood Count 4.64 M/uL (4.70-6.10); White Blood Count 17.29 K/ul (4.8-10.8)
[2024-04-16 07:18] LABS: Albumin Globulin Ratio 1.6 (0.9-2); Albumin Level 3.7 gm/dl (3.4-5.0); BUN Creatinine Ratio 24.1 (10-20); Bilirubin,Total 0.6 mg/dl (0.2-1.0); Calcium 8.5 mg/dl (8.6-10.3); Creatinine Clr Calc Pharmacy 83.2 ml/min; Est GFR (African American) 95.8 ml/min; Est GFR (Non-African American) 82.7 ml/min; Globulin 2.3 gm/dl (2.5-4.0); Magnesium 1.7 mg/dl (1.7-2.4); Potassium 3.7 mmol/L (3.5-5.1)
--- NOTE | 2024-04-16 08:21 | XRay Report ---
XR chest 1V portable CLINICAL HISTORY: weakness TECHNIQUE: Single frontal radiograph of the chest was obtained. Comparison: Comparison is made to chest radiograph 01/19/2024 FINDINGS: No lines and tubes are seen. Calcified aortic knob is seen. Elevation of the right hemidiaphragm is s een. No evidence of pleural effusion or pneumothorax. IMPRESSION: No acute chest disease. ACT 112: Negative or not required by law. Electronically signed by: Renato Lopez M.D. 04/16/2024 8:20 AM
[2024-04-16] MEDS ORDERED: NON-FORMULARY MEDICATION (Coq10 (Ubiquinol) 200 mg Capsule) PO SCH (09:00)
[2024-04-16] MEDS ORDERED: RESVERATROL 50 MG PO SCH (09:00)
[2024-04-16] MEDS ORDERED: NON-FORMULARY MEDICATION (Fluticasone-Umeclidin-Vilanter [Trelegy Ellipta] 100-62.5-25 mcg INH SCH (09:00)
[2024-04-16] MEDS: UMECLIDINIUM/VILANTEROL 62.5/25MCG 7 PUFFS/INHALER INH SCH (09:16)
[2024-04-16] MEDS: guaiFENesin 600 MG TABCR PO SCH (09:16)
[2024-04-16] MEDS: ATORVASTATIN 40 MG TAB PO SCH (09:16)
[2024-04-16] MEDS: CHOLECALCIFEROL 125 MCG (5,000 UNITS) TAB PO SCH (09:16)
[2024-04-16] MEDS: DIVALPROEX EXTENDED RELEASE 500 MG TAB PO SCH (09:16)
[2024-04-16] MEDS: SERTRALINE HCL 100 MG TABLET PO SCH (09:16)
[2024-04-16] MEDS: POLYETHYLENE (MIRALAX) 17 GM PACK PO SCH (09:16)
[2024-04-16] MEDS: DOCUSATE SODIUM 100 MG CAP PO SCH (09:16)
[2024-04-16] MEDS: FLUTICASONE FUROATE 100MCG 14 PUFFS/INHALER INH SCH (09:17)
--- NOTE | 2024-04-16 11:47 | Hospitalist Progress Note ---
Date of Service April 16, 2024 Assessment & Plan (1) Sepsis due to urinary tract infection: Plan: Fortunately, he has not required pressor support. Await urine culture results and blood culture results. Will tailor antibiotics accordingly. Currently on Rocephin, day 2 (2) Benign localized prostatic hyperplasia with lower urinary tract symptoms (LUTS): Plan: Stable. Supportive care (3) PAF (paroxysmal atrial fibrillation): Plan: Currently in normal sinus rhythm. Xarelto is on hold (4) Stented coronary artery: Plan: Stable. Continue current medical management (5) Hypertension: Plan: Stable. Continue current medical (6) Hemiparesis affecting left side as late effect of cerebrovascular accident: Plan: Supportive care (7) Lupus anticoagulant positive: Plan: Chronic Xarelto use. Xarelto is temporarily on hold (8) CAD (coronary artery disease): Plan: Stable. Continue current medical management (9) Diabetes mellitus: Plan: ADA diet. Sliding scale coverage as needed. Plan To be determined Admission and Anticipated Discharge Date Admission Date: April 15, 2024 Subjective Awake and alert but oriented to name only. This may be his baseline. Urine and blood cultures are pending. He remains on Rocephin, day 2. Xarelto is on hold. Blood and urine culture results pending. Continue IV fluids for now. OT and PT assessments have been requested. Review of Systems 2 Review of Systems: The patient is unable to answer any questions regarding review of systems at this time Physical Exam 2 Physical Exam: General-alert but oriented to name only. No distress. No fever. HEENT-head atraumatic and normocephalic, pupils equal and reactive to light, extraocular muscles intact Neck-no lymphadenopathy or thyromegaly, trachea midline Chest-clear to auscultation. No rales, wheezing or rhonchi Cardiac-regular rate and rhythm, normal S1 and S2 Abdomen-normal bowel sounds, no hepatosplenomegaly Extremities-no cyanosis, clubbing, or edema Neuro-cranial nerves II through XII intact, he has chronic left hemiparesis from old CVA. Psych-cannot assess . He is disoriented but this may be his baseline Results & Data Results & Data Vital Signs (Past 12 Hours) Vital Signs Temp Pulse Pulse Resp BP Pulse Ox O2 Del Method 04/16/24 11:26 37.0 C 102 H 20 142/75 H 91 Room Air 04/16/24 07:50 37.3 C 90 16 150/75 H 94 Room Air 04/16/24 07:18 83 04/16/24 04:01 80 24 95 04/16/24 03:09 37.1 C 83 20 119/62 93 CPAP 04/16/24 02:22 36.9 C 91 H 16 144/78 H 95 Room Air 04/16/24 01:34 85 24 96 04/16/24 00:37 93 H 04/16/24 00:32 Room Air 04/16/24 00:17 87 16 139/70 96 Room Air 04/15/24 23:54 37.5 C 89 Laboratory Results 04/16/24 06:34 04/16/24 06:34 PG Care Time/CCT Total # of Minutes Spent Total Time Spent with Patient: Total time spent is greater than 50% in coordination of care (as documented) at patient's floor/unit and/or counseling patient: Coding Level of Care Code 69037 SUB INP/OBS CARE 3/50MIN Diagnoses Sepsis due to urinary tract infection A41.9; N39.0 Benign localized prostatic hyperplasia with lower urinary tract symptoms (LUTS) N40.1 PAF (paroxysmal atrial fibrillation) I48.0 Stented coronary artery Z95.5 Primary hypertension I10 Hypertension type: primary hypertension Hemiparesis affecting left side as late effect of cerebrovascular accident I69.354 Lupus anticoagulant positive R76.0 Coronary artery disease involving [place] coronary artery of [place] heart without angina pectoris I25.10 Coronary Disease-Associated Artery/Lesion type: [place] artery [place] vs. transplanted heart: [place] heart Associated angina: without angina Type 2 diabetes mellitus without complication, without long-term current use of insulin E11.9 Diabetes mellitus type: type 2 Diabetes mellitus snf insulin use: without snf use Diabetes mellitus complication status: without complication (5) Hypertension Hypertension type: primary hypertension Qualified Code(s): I10 - Essential (primary) hypertension (8) CAD (coronary artery disease) Coronary Disease-Associated Artery/Lesion type: [place] artery [place] vs. transplanted heart: [place] heart Associated angina: without angina Qualified Code(s): I25.10 - Atherosclerotic heart disease of [place] coronary artery without angina pectoris (9) Diabetes mellitus Diabetes mellitus type: type 2 Diabetes mellitus snf insulin use: w ithout snf use Diabetes mellitus complication status: without complication Qualified Code(s): E11.9 - Type 2 diabetes mellitus without complications
--- NOTE | 2024-04-16 17:35 | Electrocardiogram Report ---
Test Reason : Blood Pressure : / mmHG Vent. Rate : 105 BPM Atrial Rate : 105 BPM P-R Int : 210 ms QRS Dur : 136 ms QT Int : 456 ms P-R-T Axes : 078 102 022 degrees QTc Int : 602 ms Sinus tachycardia with 1st degree A-V block with Premature atrial complexes with Aberrant conduction vs PVCs Right bundle branch block Abnormal ECG When compared with ECG of 03-MAR-2023 12:09, Vent. rate has increased BY 39 BPM QT has lengthened Confirmed by Hakeem Penaloza ([id number]) on 04/16/2024 5:35:26 PM Referred By: REFERRED SELF Confirmed By:Иван Penaloza
[2024-04-16] MEDS: cefTRIAXone SODIUM 2,000 MG/50 ML BAG IV SCH (20:13)
[2024-04-16] MEDS ORDERED: NON-FORMULARY MEDICATION (Cpap Machine misc) SCH (21:00)
[2024-04-17 06:46] LABS: Basophils # (auto) 0.03 K/uL (0.00-0.20); Basophils % (auto) 0.2 %; Eosinophils # (auto) 0.08 K/uL (0.00-0.50); Eosinophils % (auto) 0.6 %; Hematocrit (blood only) 36.9 % (42.0-52.0); Hemoglobin 11.9 g/dl (14.0-18.0); Immature Granulocytes # (auto) 0.03 K/uL (0.01-0.20); Immature Granulocytes % (auto) 0.2 %; Lymphocytes # (auto) 1.15 K/uL (1.20-3.40); Lymphocytes % (auto) 8.9 %; Mean Corpuscular Hgb Conc 32.2 g/dL (32.0-36.0); Mean Corpuscular Volume 86.8 fL (80.0-100.0); Mean Platelet Volume 10.3 fL (9.4-12.4); Monocytes # (auto) 1.12 K/uL (0.11-0.59); Monocytes % (auto) 8.6 %; Neutrophils # (auto) 10.54 K/uL (1.40-6.50); Neutrophils % (auto) 81.5 %; Platelet Count 170 K/uL (130-400); RDW Coefficient of Variation 13.9 % (11.5-14.5); RDW Standard Deviation 44.3 fL (36.4-46.3); Red Blood Count 4.25 M/uL (4.70-6.10); White Blood Count 12.95 K/ul (4.8-10.8)
[2024-04-17 06:53] LABS: BUN Creatinine Ratio 26.1 (10-20); Calcium 8.4 mg/dl (8.6-10.3); Creatinine Clr Calc Pharmacy 83.1 ml/min; Est GFR (African American) 95.4 ml/min; Est GFR (Non-African American) 82.3 ml/min; Potassium 3.9 mmol/L (3.5-5.1)
[2024-04-17] MEDS: LIDOCAINE 5% 1 PATCH TD SCH (08:01)
[2024-04-17] MEDS: RIVAROXABAN 20 MG TAB PO SCH (14:13)
--- NOTE | 2024-04-17 15:39 | Hospitalist Progress Note ---
Date of Service April 17, 2024 Assessment & Plan (1) Sepsis due to urinary tract infection: Plan: Present on admission. Now resolved. No pressor support required. Urine is growing gram-negative bacilli. Blood cultures remain negative to date. Currently on Rocephin, day 3 (2) Metabolic encephalopathy: Plan: Improving. Supportive care. Treat underlying UTI (3) Benign localized prostatic hyperplasia with lower urinary tract symptoms (LUTS): Plan: Stable. Supportive care (4) PAF (paroxysmal atrial fibrillation): Plan: Currently in normal sinus rhythm. Xarelto was held on admission but was restarted today, April 17 (5) Stented coronary artery: Plan: Stable. Continue current medical management (6) Hypertension: Plan: Stable. 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 Xarelto was held on admission but restarted today, April 17 (9) CAD (coronary artery disease): Plan: Stable. Continue current medical management (10) Diabetes mellitus: Plan: ADA diet. Sliding scale coverage as needed. Plan Probable discharge to home with home health services as before. He will remain hospitalized this weekend Admission and Anticipated Discharge Date Admission Date: April 15, 2024 Subjective The patient is sitting up in a chair eating at the time of my examination. He is awake and oriented to name and place. He states he remembers me from yesterday. He seems to be much improved compared to yesterday, April 16. Urine culture reveals gram-negative bacilli. Final identification and sensitivities pending. Blood culture remains negative. He is on Rocephin, day 3. Xarelto has been restarted. IV fluids taper down. It appears he will go home with home health services at the time of discharge but he will be hospitalized through the weekend Review of Systems 2 Review of Systems: The patient is unable to answer any questions regarding review of systems at this time Physical Exam 2 Physical Exam: General-awake and alert. Oriented to name and place. No distress. No fever. HEENT-head atraumatic and normocephalic, pupils equal and reactive to light, extraocular muscles intact Neck-no lymphadenopathy or thyromegaly, trachea midline Chest-clear to auscultation. No rales, wheezing or rhonchi Cardiac-regular rate and rhythm, normal S1 and S2 Abdomen-normal bowel sounds, no hepatosplenomegaly Extremities-no cyanosis, clubbing, or edema Neuro-cranial nerves II through XII intact, he has chronic left hemiparesis from old CVA. Psych-normal affect. Oriented to name and place. Results & Data Results & Data Vital Signs (Past 12 Hours) Vital Signs Temp Pulse Pulse Resp BP Pulse Ox O2 Del Method 04/17/24 15:16 36.8 C 69 16 119/73 93 Room Air 04/17/24 14:58 66 04/17/24 10:54 36.9 C 68 18 118/68 92 Room Air 04/17/24 07:34 74 04/17/24 07:34 Room Air 04/17/24 07:26 37.1 C 69 18 136/76 92 Room Air Laboratory Results 04/17/24 06:00 04/17/24 06:00 PG Care Time/CCT Total # of Minutes Spent Total Time Spent with Patient: Total time spent is greater than 50% in coordination of care (as documented) at patient's floor/unit and/or counseling patient: Coding Level of Care Code 23231 SUB INP/OBS CARE 3/50MIN Diagnoses Sepsis due to urinary tract infection A41.9; N39.0 Metabolic encephalopathy G93.41 Benign localized prostatic hyperplasia with lower urinary tract symptoms (LUTS) N40.1 PAF (paroxysmal atrial fibrillation) I48.0 Stented coronary artery Z95.5 Primary hypertension I10 Hypertension type: primary hypertension Hemiparesis affecting left side as late effect of cerebrovascular accident I69.354 Lupus anticoagulant positive R76.0 Coronary artery disease involving [place] coronary artery of [place] heart without angina pectoris I25.10 Coronary Disease-Associated Artery/Lesion type: [place] artery [place] vs. transplanted heart: [place] heart Associated angina: without angina Type 2 diabetes mellitus without complication, without long-term current use of insulin E11.9 Diabetes mellitus type: type 2 Diabetes mellitus custodial insulin use: without buttermaker use Diabetes mellitus complication status: without complication (6) Hypertension Hypertension type: primary hypertension Qualified Code(s): I10 - Essential (primary) hypertension (9) CAD (coronary artery disease) Coronary Disease-Associated Artery/Lesion type: [place] artery [place] vs. transplanted heart: [place] heart Associated angina: without angina Qualified Code(s): I25.10 - Atherosclerotic heart disease of [place] coronary artery without angina pectoris (10) Diabetes mellitus Diabetes mellitus type: type 2 Diabetes mellitus buttermaker insulin use: w ithout buttermaker use Diabetes mellitus complication status: without complication Qualified Code(s): E11.9 - Type 2 diabetes mellitus without complications
[2024-04-18 07:46] LABS: Basophils # (auto) 0.02 K/uL (0.00-0.20); Basophils % (auto) 0.2 %; Eosinophils # (auto) 0.13 K/uL (0.00-0.50); Eosinophils % (auto) 1.6 %; Hematocrit (blood only) 35.3 % (42.0-52.0); Hemoglobin 11.4 g/dl (14.0-18.0); Immature Granulocytes # (auto) 0.03 K/uL (0.01-0.20); Immature Granulocytes % (auto) 0.4 %; Lymphocytes # (auto) 0.92 K/uL (1.20-3.40); Mean Corpuscular Hemoglobin 27.7 pg (25.0-34.0); Mean Corpuscular Hgb Conc 32.3 g/dL (32.0-36.0); Mean Corpuscular Volume 85.7 fL (80.0-100.0); Mean Platelet Volume 10.3 fL (9.4-12.4); Monocytes # (auto) 0.78 K/uL (0.11-0.59); Monocytes % (auto) 9.4 %; Neutrophils # (auto) 6.46 K/uL (1.40-6.50); Neutrophils % (auto) 77.4 %; Platelet Count 167 K/uL (130-400); RDW Coefficient of Variation 13.4 % (11.5-14.5); RDW Standard Deviation 42.2 fL (36.4-46.3); Red Blood Count 4.12 M/uL (4.70-6.10); White Blood Count 8.34 K/ul (4.8-10.8)
[2024-04-18 08:19] LABS: Calcium 8.4 mg/dl (8.6-10.3); Creatinine Clr Calc Pharmacy 100.8 ml/min; Est GFR (Non-African American) 88.8 ml/min; Potassium 3.6 mmol/L (3.5-5.1)
--- NOTE | 2024-04-18 13:07 | Hospitalist Progress Note ---
Date of Service April 18, 2024 Assessment & Plan (1) Sepsis due to urinary tract infection: Plan: Present on admission. Now resolved. No pressor support required. Urine is growing [place]. Pansensitive. Blood cultures remain negative to date. Currently on Rocephin, day 4. He will likely complete his antibiotic therapy while hospitalized (2) Metabolic encephalopathy: Plan: Resolved. Supportive care. Treat underlying UTI (3) Benign localized prostatic hyperplasia with lower urinary tract symptoms (LUTS): Plan: Stable. Supportive care (4) PAF (paroxysmal atrial fibrillation): Plan: Currently in normal sinus rhythm. Xarelto was held on admission but was restarted on April 17 (5) Stented coronary artery: Plan: Stable. Continue current medical management (6) Hypertension: Plan: Stable. 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 Xarelto was held on admission but restarted on April 17 (9) CAD (coronary artery disease): Plan: Stable. Continue current medical management (10) Diabetes mellitus: Plan: ADA diet. Sliding scale coverage as needed. Plan Anticipate discharge back to home with home health services on April 20 Admission and Anticipated Discharge Date Admission Date: April 15, 2024 Subjective Alert and oriented. He appears to be back to his mental status baseline. Klebsiella isolated in the urine which is pansensitive. He is now on Rocephin, day 4. White count has normalized to 8000. I spoke to his significant other, Tammy, and told her that he probably will go home on Saturday. OT and PT have both recommended return to home at the time of discharge. Review of Systems 2 Review of Systems: Constitutional-no fever or chills ENT-no blurred vision, no double vision, no epistaxis, no sore throat Respiratory-no cough, no wheezing, no shortness of breath Cardiac-no palpitations, no chest pain, no syncope GI-no nausea, vomiting, diarrhea, melena, hematochezia -no urinary retention, no urinary incontinence, no dysuria, no hematuria Musculoskeletal-no joint pain, no muscle tenderness Skin-no bruising, no rashes, no pruritus Neuro-no isolated weakness, no paresthesia, no weakness Psych-no depression, no anxiety Physical Exam 2 Physical Exam: General-awake and alert. Oriented to name and place. No distress. No fever. HEENT-head atraumatic and normocephalic, pupils equal and reactive to light, extraocular muscles intact Neck-no lymphadenopathy or thyromegaly, trachea midline Chest-clear to auscultation. No rales, wheezing or rhonchi Cardiac-regular rate and rhythm, normal S1 and S2 Abdomen-normal bowel sounds, no hepatosplenomegaly Extremities-no cyanosis, clubbing, or edema Neuro-cranial nerves II through XII intact, he has chronic left hemiparesis from old CVA. Psych-normal affect. Oriented to name and place. Results & Data Results & Data Vital Signs (Past 12 Hours) Vital Signs Temp Pulse Pulse Resp BP BP Pulse Ox 04/18/24 10:38 36.4 C L 69 19 138/79 96 04/18/24 07:30 66 04/18/24 07:30 04/18/24 07:21 36.8 C 62 16 132/74 96 04/18/24 02:33 36.7 C 72 20 118/71 94 O2 Del Method 04/18/24 10:38 Room Air 04/18/24 07:30 04/18/24 07:30 Room Air 04/18/24 07:21 Room Air 04/18/24 02:33 Room Air Laboratory Results 04/18/24 06:29 04/18/24 06:29 PG Care Time/CCT Total # of Minutes Spent Total Time Spent with Patient: Total time spent is greater than 50% in coordination of care (as documented) at patient's floor/unit and/or counseling patient: Coding Level of Care Code 16202 SUB INP/OBS CARE 3/50MIN Diagnoses Sepsis due to urinary tract infection A41.9; N39.0 Metabolic encephalopathy G93.41 Benign localized prostatic hyperplasia with lower urinary tract symptoms (LUTS) N40.1 PAF (paroxysmal atrial fibrillation) I48.0 Stented coronary artery Z95.5 Primary hypertension I10 Hypertension type: primary hypertension Hemiparesis affecting left side as late effect of cerebrovascular accident I69.354 Lupus anticoagulant positive R76.0 Coronary artery disease involving [place] coronary artery of [place] heart without angina pectoris I25.10 Coronary Disease-Associated Artery/Lesion type: [place] artery [place] vs. transplanted heart: [place] heart Associated angina: without angina Type 2 diabetes mellitus without complication, without long-term current use of insulin E11.9 Diabetes mellitus type: type 2 Diabetes mellitus [place] intermediary insulin use: without [place] intermediary use Diabetes mellitus complication status: without complication (6) Hypertension Hypertension type: primary hypertension Qualified Code(s): I10 - Essential (primary) hypertension (9) CAD (coronary artery disease) Coronary Disease-Associated Artery/Lesion type: [place] artery [place] vs. transplanted heart: [place] heart Associated angina: without angina Qualified Code(s): I25.10 - Atherosclerotic heart disease of [place] coronary artery without angina pectoris (10) Diabetes mellitus Diabetes mellitus type: type 2 Diabetes mellitus residential insulin use: w ithout residential use Diabetes mellitus complication status: without complication Qualified Code(s): E11.9 - Type 2 diabetes mellitus without complications
[2024-04-19 07:35] LABS: BUN Creatinine Ratio 23.2 (10-20); Calcium 8.6 mg/dl (8.6-10.3); Creatinine Clr Calc Pharmacy 106.2 ml/min; Est GFR (African American) 105.4 ml/min; Est GFR (Non-African American) 90.9 ml/min; Potassium 3.6 mmol/L (3.5-5.1)
--- NOTE | 2024-04-19 14:33 | Hospitalist Progress Note ---
Date of Service April 19, 2024 Assessment & Plan (1) Sepsis due to urinary tract infection: Plan: Present on admission. Now resolved. No pressor support required. Urine is growing Klebsiella. Pansensitive. Blood cultures remain negative to date. Currently on Rocephin, day 5. He will likely complete his antibiotic therapy while hospitalized (2) Metabolic encephalopathy: Plan: Resolved. Supportive care. Treat underlying UTI (3) Benign localized prostatic hyperplasia with lower urinary tract symptoms (LUTS): Plan: Stable. Supportive care (4) PAF (paroxysmal atrial fibrillation): Plan: Currently in normal sinus rhythm. Xarelto was held on admission but was restarted on April 17 (5) Stented coronary artery: Plan: Stable. Continue current medical management (6) Hypertension: Plan: Stable. 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 Xarelto was held on admission but restarted on April 17 (9) CAD (coronary artery disease): Plan: Stable. Continue current medical management (10) Diabetes mellitus: Plan: ADA diet. Sliding scale coverage as needed. (11) Aspiration into airway: Plan: This appears to be a chronic problem. Previous speech therapy evaluations have allowed permissive aspiration according to patient wishes. Current speech therapy evaluation has been ordered and pending Plan Anticipate discharge back to home with home health services on April 20 Admission and Anticipated Discharge Date Admission Date: April 15, 2024 Subjective Alert and oriented. Nursing staff noted that he choked several times yesterday, April 18, with eating and he is now n.p.o. and speech therapy has been consulted. Review of previous speech therapy evaluations reveal occasional aspiration and he has been allowed permissive aspiration. I suspect this will be the case now. This is day 5 of Rocephin for the Klebsiella UTI. Blood cultures remain negative. Probably home tomorrow, April 20 Review of Systems Review of Systems: Constitutional-no fever or chills ENT-no blurred vision, no double vision, no epistaxis, no sore throat Respiratory-no cough, no wheezing, no shortness of breath Cardiac-no palpitations, no chest pain, no syncope GI-no nausea, vomiting, diarrhea, melena, hematochezia -no urinary retention, no urinary incontinence, no dysuria, no hematuria Musculoskeletal-no joint pain, no muscle tenderness Skin-no bruising, no rashes, no pruritus Neuro-no isolated weakness, no paresthesia, no weakness Psych-no depression, no anxiety Physical Exam Physical Exam: General-awake and alert. Oriented to name and place. No distress. No fever. HEENT-head atraumatic and normocephalic, pupils equal and reactive to light, extraocular muscles intact Neck-no lymphadenopathy or thyromegaly, trachea midline Chest-clear to auscultation. No rales, wheezing or rhonchi Cardiac-regular rate and rhythm, normal S1 and S2 Abdomen-normal bowel sounds, no hepatosplenomegaly Extremities-no cyanosis, clubbing, or edema Neuro-cranial nerves II through XII intact, he has chronic left hemiparesis from old CVA. Psych-normal affect. Oriented to name and place. Results & Data Results & Data Vital Signs (Past 12 Hours) Vital Signs Temp Pulse Pulse Resp BP BP Pulse Ox 04/19/24 11:44 36.5 C 61 18 114/61 94 04/19/24 11:26 36.8 C 64 18 152/80 H 97 04/19/24 07:25 59 L 04/19/24 07:25 04/19/24 03:32 36.6 C 62 18 154/81 H 96 O2 Del Method 04/19/24 11:44 Room Air 04/19/24 11:26 Room Air 04/19/24 07:25 04/19/24 07:25 Room Air 04/19/24 03:32 Room Air PG Care Time/CCT Total # of Minutes Spent Total Time Spent with Patient: Total time spent is greater than 50% in coordination of care (as documented) at patient's floor/unit and/or counseling patient: Coding Level of Care Code 76222 SUB INP/OBS CARE 2/35MIN Diagnoses Sepsis due to urinary tract infection A41.9; N39.0 Metabolic encephalopathy G93.41 Benign localized prostatic hyperplasia with lower urinary tract symptoms (LUTS) N40.1 PAF (paroxysmal atrial fibrillation) I48.0 Stented coronary artery Z95.5 Primary hypertension I10 Hypertension type: primary hypertension Hemiparesis affecting left side as late effect of cerebrovascular accident I69.354 Lupus anticoagulant positive R76.0 Coronary artery disease involving [place] coronary artery of [place] heart without angina pectoris I25.10 Coronary Disease-Associated Artery/Lesion type: [place] artery [place] vs. 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 tra nsplanted heart: [place] heart Associated angina: without angina Qualified Code(s): I25.10 - Atherosclerotic heart disease of [place] coronary artery without angina pectoris (10) Diabetes mellitus Diabetes mellitus type: type 2 Diabetes mellitus custodial insulin use: without custodial use Diabetes mellitus complication status: without complication Qualified Code(s): E11.9 - Type 2 diabetes mellitus without complications
[2024-04-19] MEDS: ALBUT/IPRATROP 3MG/0.5MG NEB 3 ML VIAL INH PRN (18:20)
--- NOTE | 2024-04-20 13:24 | Discharge Summary ---
Discharge Summary Date of Service April 20, 2024 Principal Dx & Hospital Course #1 = Principal Diagnosis (1) Sepsis due to urinary tract infection: Present on admission. Now resolved. No pressor support required. Urine is growing Klebsiella. Pansensitive. Blood cultures remain negative to date. Received Rocephin x 5 days and will finish out course with 2 more days of po cefdinir on discharge (2) Metabolic encephalopathy: Resolved. Supportive care. Treated underlying UTI (3) Benign localized prostatic hyperplasia with lower urinary tract symptoms (LUTS): Stable. Supportive care (4) PAF (paroxysmal atrial fibrillation): Currently in normal sinus rhythm. 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 Xarelto was held on admission but restarted on April 17 (8) CAD (coronary artery disease): Stable. Continue current medical management with statin and Xarelto (9) Diabetes mellitus: DM diet, not on meds at home as HgbA1C only 6.4% in Nov (10) Aspiration into airway: This appears to be a chronic problem. Previous speech therapy evaluations have allowed permissive aspiration according to patient wishes. Speech therapy evaluation here repeated due to choking on usual diet and changed to minced and moist and honey thickened liquids Plan Dispo-dc to home with home health services on April 20 Discussed care with significant other at bedside on 04/20/24 Notes For Next Care Provider None Medication Changes From Visit Added cefdinir 300mg po bid x 2 more days Admission HPI Per Admitting Provider The patient is a 78-year-old male with a past medical history including left rotator cuff arthropathy, recurrent aspiration, COPD, CVA with residual left hemiplegia, BPH with LUTS, HEYDI, paroxysmal SVT, paroxysmal atrial fibrillation, asthma, stented coronary artery, hypercholesterolemia, hypertension, lupus anticoagulant, factor VIII inhibitor disorder, CAD and diabetes mellitus. He presents to the emergency department with symptoms as noted above. He denies any recent travels or sick exposures. His is present in the room with him, and is able to help complete his HPI and ROS. Discharge Exam Constitutional WD/WN, vitals as above Respiratory normal respiratory effort, lungs clear to auscultation Cardiovascular RRR, no murmur, no edema Gastrointestinal (Abdomen) normal bowel sounds, soft, nontender, no hepatosplenomegaly Updated Medication List Medication Instructions Recorded Confirmed Type acetaminophen 650 mg 650 mg PO Q8H PRN Fever 02/18/20 03/05/24 History tablet,extended release (Tylenol Arthritis Pain) resveratrol 50 mg capsule 50 mg PO QAM 07/13/21 03/05/24 History cholecalciferol (vitamin D3) 125 125 mcg PO QAM 07/25/21 03/05/24 History mcg (5,000 unit) capsule coQ10 (ubiquinol) 200 mg capsule 200 mg PO QAM 07/25/21 03/05/24 History Auto Titrating CPAP #1 ea 08/01/21 03/05/24 Rx CPAP Machine #1 ea 08/04/21 03/05/24 Rx CPAP Supplies #1 ea 08/04/21 03/05/24 Rx guaifenesin 600 mg tablet, 600 mg PO BID 11/23/21 03/05/24 History extended release 12 hr (Mucinex) fexofenadine [Shilpi Allergy] See Rx Instructions .Route 07/19/22 03/05/24 History .COMPLEX PRN Allergy Symptoms melatonin 10 mg tablet 10 mg PO HS PRN sleep #90 tabs 07/19/22 03/05/24 Rx turmeric root extract 500 mg tablet 500 mg PO DAILY #30 tabs 07/19/22 03/05/24 Rx fluticasone fur. 100 mcg-umeclid 1 inh inhalation DAILY #3 Inhalers 04/18/23 03/05/24 Rx 62.5 mcg-vilant 25 mcg inhalat.powder (Trelegy Ellipta) tramadol 50 mg tablet 50 mg PO Q6H PRN Pain #30 tabs 05/03/23 03/05/24 Rx atorvastatin 40 mg tablet 40 mg PO .every other day #90 tabs 06/17/23 03/05/24 Rx albuterol sulfate 90 mcg/actuation 2 puff inhalation Q4H PRN 08/19/23 03/05/24 Rx aerosol inhaler Shortness Of Breath #18 grams miscellaneous medical supply 1 ea miscellaneous BID #1 ea 11/05/23 03/05/24 Rx lidocaine 5 % topical patch 1 patch topical Q24H #30 ea 11/07/23 03/05/24 Rx ipratropium 0.5 mg-albuterol 3 mg 3 ml inhalation Q4H PRN Wheezing 12/02/23 03/05/24 Rx (2.5 mg base)/3 mL nebulization #360 mL soln sertraline 100 mg tablet See Rx Instructions .Route .COMPLEX 01/02/24 03/05/24 History miscellaneous medical supply #1 ea 01/09/24 03/05/24 Rx omeprazole 40 mg capsule,delayed 40 mg PO DAILYBB #90 caps 02/04/24 03/05/24 Rx release divalproex 500 mg tablet,extended 500 mg PO DAILY 90 days #90 tabs 02/10/24 03/05/24 Rx release 24 hr (Depakote ER) docusate sodium 100 mg capsule 100 mg PO DAILY 03/05/24 03/05/24 History (Colace) fish,bora,flax oils-om3,6,9no1 PO 03/05/24 03/05/24 History [[place] 3-6-9] polyethylene glycol 3350 17 17 g PO DAILY 03/05/24 03/05/24 History gram/dose oral powder (Miralax) rivaroxaban 20 mg tablet (Xarelto) 20 mg PO QAM #90 tabs 03/31/24 Rx cefdinir 300 mg capsule 300 mg PO BID #4 caps 04/20/24 Rx Hospital Stay Data Consultations 04/15/24 23:13 ED Decision to Admit Stat Diagnostic Imagining Performed 04/15/24 21:59 CT head/brain wo con Stat 04/15/24 23:15 CT Abdomen and Pelvis [CT abd pelvis wo con] Stat Pending Results Patient Have Any Pending Studies at Discharge: No Discharge Instructions Given to Patient (Per Discharging Provider) Please finish out 2 more days of the antibiotic called cefdinir for your UTI. Total Time Total Time Spent Total Time Spent (In Minutes): 35 min Total Time Includes: Examination of the Patient, Discharge Planning and Medication Reconciliation Coding Level of Care Code 17733 INP/OBS DISCH >30 MIN Diagnoses Sepsis due to urinary tract infection A41.9; N39.0 Metabolic encephalopathy G93.41 Benign localized prostatic hyperplasia with lower urinary tract symptoms (LUTS) N40.1 PAF (paroxysmal atrial fibrillation) I48.0 Primary hypertension I10 Hypertension type: primary hypertension Hemiparesis affecting left side as late effect of cerebrovascular accident I69.354 Lupus anticoagulant positive R76.0 Coronary artery disease involving [place] coronary artery of [place] heart without angina pectoris I25.10 Coronary Disease-Associated Artery/Lesion type: [place] artery [place] vs. transplanted heart: [place] heart Associated angina: without angina Type 2 diabetes mellitus without complication, without long-term current use of insulin E11.9 Diabetes mellitus type: type 2 Diabetes mellitus watermaster insulin use: without shelter use Diabetes mellitus complication status: without complication Aspiration into airway T17.531W
--- NOTE | 2024-04-20 18:20 | Hospitalist Progress Note ---
Date of Service April 20, 2024 Assessment & Plan (1) Sepsis due to urinary tract infection: Plan: Present on admission. Now resolved. No pressor support required. Urine is growing Klebsiella. Pansensitive. Blood cultures remain negative to date. Received Rocephin x 5 days and will finish out course with 2 more days of po cefdinir on discharge (2) Metabolic encephalopathy: Plan: Resolved. Supportive care. Treated underlying UTI (3) Benign localized prostatic hyperplasia with lower urinary tract symptoms (LUTS): Plan: Stable. Supportive care (4) PAF (paroxysmal atrial fibrillation): Plan: Currently in normal sinus rhythm. Xarelto was held on admission but was restarted on April 17 (5) Hypertension: Plan: BPs normal, not on meds for this (6) Hemiparesis affecting left side as late effect of cerebrovascular accident: Plan: Supportive care (7) Lupus anticoagulant positive: Plan: Chronic Xarelto use. Xarelto was held on admission but restarted on April 17 (8) CAD (coronary artery disease): Plan: Stable. Continue current medical management with statin and Xarelto (9) Diabetes mellitus: Plan: DM diet, not on meds at home as HgbA1C only 6.4% in Nov (10) Aspiration into airway: Plan: This appears to be a chronic problem. Previous speech therapy evaluations have allowed permissive aspiration according to patient wishes. Speech therapy evaluation here repeated due to choking on usual diet and changed to minced and moist and honey thickened liquids, however he does not wish to stay on this modified diet Plan Dispo-dc to home with home health services cancelled on 04/20, plan for 04/21 if transport can be arranged Discussed care with significant other at bedside on 04/20/24 Admission and Anticipated Discharge Date Admission Date: April 15, 2024 Subjective Pt feeling well, no concerns. He and do not want to modify his diet for aspiration risk. Discussed his care with Speech therapist. He was discharged at 1320 today and transport arranged, however at 18:18 I was made aware that his transportation fell through so he will stay overnight. Tele with NSR, rates 70-90s Physical Exam Constitutional: WD/WN, vitals as above Respiratory: normal respiratory effort, lungs clear to auscultation Cardiovascular: RRR, no murmur, no edema Gastrointestinal (Abdomen): normal bowel sounds, soft, nontender, no hepatosplenomegaly Results & Data Results & Data Vital Signs (Past 12 Hours) Vital Signs Temp Pulse Pulse Resp BP BP Pulse Ox 04/20/24 17:01 64 04/20/24 14:56 36.6 C 60 18 145/76 H 94 04/20/24 11:41 37.1 C 61 18 149/72 H 96 04/20/24 07:42 56 L 04/20/24 07:42 04/20/24 07:32 36.9 C 62 16 162/74 H 95 04/20/24 07:24 56 L O2 Del Method 04/20/24 17:01 04/20/24 14:56 Room Air 04/20/24 11:41 Room Air 04/20/24 07:42 04/20/24 07:42 Room Air 04/20/24 07:32 Room Air 04/20/24 07:24 PG Care Time/CCT Total # of Minutes Spent Total Time Spent with Patient: Total time spent is greater than 50% in coordination of care (as documented) at patient's floor/unit and/or counseling patient: Coding Level of Care Code 87241 SUB INP/OBS CARE 11/28MIN Diagnoses Sepsis due to urinary tract infection A41.9; N39.0 Metabolic encephalopathy G93.41 Benign localized prostatic hyperplasia with lower urinary tract symptoms (LUTS) N40.1 PAF (paroxysmal atrial fibrillation) I48.0 Primary hypertension I10 Hypertension type: primary hypertension Hemiparesis affecting left side as late effect of cerebrovascular accident I69.354 Lupus anticoagulant positive R76.0 Coronary artery disease involving [place] coronary artery of [place] heart without angina pectoris I25.10 Coronary Disease-Associated Artery/Lesion type: [place] artery [place] vs. transplanted heart: [place] heart Associated angina: without angina Type 2 diabetes mellitus without complication, without long-term current use of insulin E11.9 Diabetes mellitus type: type 2 Diabetes mellitus intermediate insulin use: without long term care social worker use Diabetes mellitus complication status: without complication Aspiration into airway T17.908A (5) Hypertension Hypertension type: primary hypertension Qualified Code(s): I10 - Essential (primary) hypertension (8) CAD (coronary artery disease) Coronary Disease-Associated Artery/Lesion type: [place] artery [place] vs. transplanted heart: [place] heart Associated angina: without angina Qualified Code(s): I25.10 - Atherosclerotic heart disease of [place] coronary artery without angina pectoris (9) Diabetes mellitus Diabetes mellitus type: type 2 Diabetes mellitus long term care social worker insulin use: without intermediate use Diabetes mellitus complication status: without complication Qualified Code(s): E11.9 - Type 2 diabetes mellitus without complications
--- NOTE | 2024-04-21 12:16 | Discharge Summary ---
Discharge Summary Date of Service April 21, 2024 Principal Dx & Hospital Course #1 = Principal Diagnosis (1) Sepsis due to urinary tract infection: Present on admission. Now resolved. No pressor support required. Urine is growing Klebsiella. Pansensitive. Blood cultures remain negative to date. Received Rocephin x 6 days and will finish out course with 2 more days of po cefdinir on discharge (2) Metabolic encephalopathy: Resolved. Supportive care. Treated underlying UTI (3) Benign localized prostatic hyperplasia with lower urinary tract symptoms (LUTS): Stable. Supportive care (4) PAF (paroxysmal atrial fibrillation): Currently in normal sinus rhythm. 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 Xarelto was held on admission but restarted on April 17 (8) CAD (coronary artery disease): Stable. Continue current medical management with statin and Xarelto (9) Diabetes mellitus: DM diet, not on meds at home as HgbA1C only 6.4% in Nov (10) Aspiration into airway: This appears to be a chronic problem. Previous speech therapy evaluations have allowed permissive aspiration according to patient wishes. Speech therapy evaluation here repeated due to choking on usual diet and changed to minced and moist and honey thickened liquids, however he does not wish to stay on this modified diet Plan Dispo-dc to home with home health services Discussed care with significant other at bedside on 04/20/24 Notes For Next Care Provider None Medication Changes From Visit Added Cefdinir 300mg po bid x 2 days Admission HPI Per Admitting Provider The patient is a 78-year-old male with a past medical history including left rotator cuff arthropathy, recurrent aspiration, COPD, CVA with residual left hemiplegia, BPH with LUTS, HEYDI, paroxysmal SVT, paroxysmal atrial fibrillation, asthma, stented coronary artery, hypercholesterolemia, hypertension, lupus anticoagulant, factor VIII inhibitor disorder, CAD and diabetes mellitus. He presents to the emergency department with symptoms as noted above. He denies any recent travels or sick exposures. His is present in the room with him, and is able to help complete his HPI and ROS. Discharge Exam Constitutional WD/WN, vitals as above Respiratory normal respiratory effort, lungs clear to auscultation Cardiovascular RRR, no murmur, no edema Gastrointestinal (Abdomen) normal bowel sounds, soft, nontender, no hepatosplenomegaly Updated Medication List Medication Instructions Recorded Confirmed Type acetaminophen 650 mg 650 mg PO Q8H PRN Fever 02/18/20 03/05/24 History tablet,extended release (Tylenol Arthritis Pain) resveratrol 50 mg capsule 50 mg PO QAM 07/13/21 03/05/24 History cholecalciferol (vitamin D3) 125 125 mcg PO QAM 07/25/21 03/05/24 History mcg (5,000 unit) capsule coQ10 (ubiquinol) 200 mg capsule 200 mg PO QAM 07/25/21 03/05/24 History Auto Titrating CPAP #1 ea 08/01/21 03/05/24 Rx CPAP Machine #1 ea 08/04/21 03/05/24 Rx CPAP Supplies #1 ea 08/04/21 03/05/24 Rx guaifenesin 600 mg tablet, 600 mg PO BID 11/23/21 03/05/24 History extended release 12 hr (Mucinex) fexofenadine [Shilpi Allergy] See Rx Instructions .Route 07/19/22 03/05/24 History .COMPLEX PRN Allergy Symptoms melatonin 10 mg tablet 10 mg PO HS PRN sleep #90 tabs 07/19/22 03/05/24 Rx turmeric root extract 500 mg tablet 500 mg PO DAILY #30 tabs 07/19/22 03/05/24 Rx fluticasone fur. 100 mcg-umeclid 1 inh inhalation DAILY #3 Inhalers 04/18/23 03/05/24 Rx 62.5 mcg-vilant 25 mcg inhalat.powder (Trelegy Ellipta) tramadol 50 mg tablet 50 mg PO Q6H PRN Pain #30 tabs 05/03/23 03/05/24 Rx atorvastatin 40 mg tablet 40 mg PO .every other day #90 tabs 06/17/23 03/05/24 Rx albuterol sulfate 90 mcg/actuation 2 puff inhalation Q4H PRN 08/19/23 03/05/24 Rx aerosol inhaler Shortness Of Breath #18 grams miscellaneous medical supply 1 ea miscellaneous BID #1 ea 11/05/23 03/05/24 Rx lidocaine 5 % topical patch 1 patch topical Q24H #30 ea 11/07/23 03/05/24 Rx ipratropium 0.5 mg-albuterol 3 mg 3 ml inhalation Q4H PRN Wheezing 12/02/23 03/05/24 Rx (2.5 mg base)/3 mL nebulization #360 mL soln sertraline 100 mg tablet See Rx Instructions .Route .COMPLEX 01/02/24 03/05/24 History miscellaneous medical supply #1 ea 01/09/24 03/05/24 Rx omeprazole 40 mg capsule,delayed 40 mg PO DAILYBB #90 caps 02/04/24 03/05/24 Rx release divalproex 500 mg tablet,extended 500 mg PO DAILY 90 days #90 tabs 02/10/24 03/05/24 Rx release 24 hr (Depakote ER) docusate sodium 100 mg capsule 100 mg PO DAILY 03/05/24 03/05/24 History (Colace) fish,bora,flax oils-om3,6,9no1 PO 03/05/24 03/05/24 History [[place] 3-6-9] polyethylene glycol 3350 17 17 g PO DAILY 03/05/24 03/05/24 History gram/dose oral powder (Miralax) rivaroxaban 20 mg tablet (Xarelto) 20 mg PO QAM #90 tabs 03/31/24 Rx cefdinir 300 mg capsule 300 mg PO BID #4 caps 04/20/24 Rx Hospital Stay Data Consultations 04/15/24 23:13 ED Decision to Admit Stat Diagnostic Imagining Performed 04/15/24 21:59 CT head/brain wo con Stat 04/15/24 23:15 CT Abdomen and Pelvis [CT abd pelvis wo con] Stat Pending Results Patient Have Any Pending Studies at Discharge: No Discharge Instructions Given to Patient (Per Discharging Provider) Please finish out 2 more days of the antibiotic called cefdinir for your UTI. Total Time Total Time Spent Total Time Spent (In Minutes): 35 min Total Time Includes: Examination of the Patient, Discharge Planning and Medication Reconciliation Coding Level of Care Code 73127 INP/OBS DISCH >30 MIN Diagnoses Sepsis due to urinary tract infection A41.9; N39.0 Metabolic encephalopathy G93.41 Benign localized prostatic hyperplasia with lower urinary tract symptoms (LUTS) N40.1 PAF (paroxysmal atrial fibrillation) I48.0 Primary hypertension I10 Hypertension type: primary hypertension Hemiparesis affecting left side as late effect of cerebrovascular accident I69.354 Lupus anticoagulant positive R76.0 Coronary artery disease involving [place] coronary artery of [place] heart without angina pectoris I25.10 Coronary Disease-Associated Artery/Lesion type: [place] artery [place] vs. transplanted heart: [place] heart Associated angina: without angina Type 2 diabetes mellitus without complication, without long-term current use of insulin E11.9 Diabetes mellitus type: type 2 Diabetes mellitus senior care insulin use: without terminal clerk use Diabetes mellitus complication status: without complication Aspiration into airway T17.001H
== END 2024-04-21 13:36 | disposition home health service (06) | DRG 871 ==
LOC: ED 21:22 → 2S 23:45 → SUATTDRO 23:45 → 2S 04-16 00:17 → 3W 04-20 22:17

== ENCOUNTER 2024-12-04 09:11 | Inpatient (IN) ==
--- NOTE | 2024-12-04 09:42 | Emergency Department Note ---
Impression & Plan Influenza A, Sepsis, Generalized weakness, Leukocytosis, Elevated troponin ED Provider Note Name: RADHA CANCINO Age: 79 Sex: Male Arrives Via: Ambulance Informant: Patient (poor historian), EMS, George (son) ED Provider: Kb Webster MD Chief Complaint: Weakness Impression: As per impressions above Medical Decision Makin-year-old gentleman arrives for evaluation of generalized weakness. Rapidly worsening over the last week. He at baseline has some weakness and left-sided weakness however this is significantly worse than his baseline as per EMS. Oxygenation at home was 70% but following multiple breathing treatments and by arrival oxygen had improved. He still appears to be a bit encephalopathic and significantly dehydrated. He was given a liter of IV fluids though given concerns for fluid overload he was not given 30/kg of IV fluids. Blood cultures and lactic acid have been obtained. He was empirically given IV Zosyn for concern of pulmonary infection. He ended up having a positive influenza test however given the significant leukocytosis and other findings I am somewhat concerned there is a secondary bacterial infection most likely lung related. Furthermore patient was noted to have in a moderately elevated troponin. Initial EKG does not show clear ischemia and this may have been secondary to hypoxic event at home. This too will need further evaluation as an inpatient. Hold off on anticoagulants at this time as he already is on Xarelto. He is not having any chest pain on repeat evaluations. Given these findings patient does have severe sepsis. He does not have findings of septic shock is not hypotensive and lactic acid is normal. Due to the patient's fall he did receive a CT of the head given the confusion and unsure if head injury occurred. Fortunately CT head is unremarkable. Triage/Nursing Notes reviewed by Me Differential:Infection, dehydration, metabolic abnormality, hypo/hyperglycemia, electrolyte disturbance, anemia, hypoxia, cardiac sources, intracerebral event, toxicologic, neurologic, as well as other pathologies. Vital Signs: reviewed and remarkable for no significant abnormalities Interventions: Zosyn IV, Tamiflu p.o., normal saline bolus 1 L IV Labs:ED labs Reviewed by me and remarkable for positive influenza testing, elevated troponin, elevated white blood cell count Imagin view chest x-ray reveals no clear evidence of infiltrate other than some mild congestion bilaterally Cardiac/Tele Monitoring: Cardiac Monitoring: An Order was placed for continuous cardiac monitoring. The monitor shows a rate of 90 with a normal sinus rhythm, no stmi. RBBB noted. Consults:Discussed with hospitalist who will manage further Plan: Disposition:Hospitalization. Condition: Good History of Present Illness: 79-year-old gentleman arrives for evaluation of weakness. Patient with a 1 week history of rapidly worsening weakness and fatigue. Patient has a history of a significant stroke and left-sided weakness and is wheelchair-bound. Per EMS they have been to his house many times to help him get up. He is had increasing falls and confusion. Reportedly family member was recently ill as well. Patient has had some cough. Family had reported a oxygen reading of 70% at home and gave him multiple breathing treatments. EMS notes oxygen has been in the low 90s. Patient reportedly appears much weaker than his typical per EMS. Patient denies any headache, neck pain, chest pain, shortness of breath abdominal pain or other concerning signs or symptoms. Past Medical History:See Below Home Medications:See Below Allergies: Solu-Medrol Vitals:Blood Pressure: 128/79, Pulse 97, RR 36, T 37.2C, O2 90% on RA Physical Exam: GENERAL: Patient is chronically unwell appearing and in no acute distress. RESPIRATORY: Gurgling respirations with mild dyspnea and diffuse crackles all lung serrano. Oropharynx reveals significant amount of secretions in the posterior pharynx which patient is having difficulty clearing. This was suctioned by nursing at bedside with improvement in patient's breathing CARDIOVASCULAR: Regular rate and rhythm.No murmur appreciated. GASTROINTESTINAL: Abdomen soft, non-tender, no peritonitis. EXTREMITIES: Normal motion all extremities, no cyanosis, bilateral lower leg mild edema edema. NEUROLOGIC: Patient is alert though somewhat somnolent. He has significant left-sided weakness. SKIN: No rash, no jaundice, no diaphoresis. GCS: 15 ED Course: Times/Reassessments: Patient is stable throughout stay and is a bit more perked up with IV fluids. Kb Webster MD Past Med/Surg History Problem List (Updated 12/04/24 @ 17:49 by Kb Webster MD) Elevated troponin (Acute) Leukocytosis (Acute) Generalized weakness (Acute) Sepsis (Acute) Influenza A (Acute) Hypoxia Pneumonia Influenza A Obstructive lung disease Excessive oral secretions Bulbar weakness Aspiration into airway H/O arterial ischemic stroke (Acute) Rotator cuff arthropathy of left shoulder Excessive cerumen in both ear canals Recurrent aspiration events Hypomagnesemia Chronic obstructive pulmonary disease 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 (02/2020) Benign localized prostatic hyperplasia with lower urinary tract symptoms (LUTS) HEYDI (obstructive sleep apnea) (09/2014) Paroxysmal SVT (supraventricular tachycardia) PAF (paroxysmal atrial fibrillation) PAC (premature atrial contraction) Seizure-like activity History of tobacco abuse Dysphagia Acquired deviated nasal septum 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 Elena removes Peg tube Pulmonary embolism Arthritis Surgical History Status post insertion of percutaneous endoscopic gastrostomy (PEG) tube History of sinus surgery History of bronchoscopy PEG (percutaneous endoscopic gastrostomy) status (~12/2019) placed due to stroke and then had bleeding after PEG tube insertion was sent to [facility] and found weak vessel in small bowel and clamped it had blood transfusion History of cardiac catheterization (~05/01/10) 05/01/2010-PCI of OM 2 with CAROLINE H/O knee surgery Family History Mother Heart disease Hypertension Father Emphysema, unspecified Hearing loss Grandfather Stroke Son Stroke Son Stroke, Onset Age: 52 Denies family history of Ovarian cancer Prostate cancer Breast cancer Lung cancer Colorectal cancer Cancer Asthma Social History (Reviewed 11/10/24 @ 09:55 by MARLINE Goss Smoking Status: Former smoker Tobacco Type: Cigarettes Age Started Using Tobacco: 15; Age Quit Using Tobacco: 30; packs per day: 2; Cigarettes Per Day: 1.5 PPD; Second Hand Exposure: No; Do You Dip or Chew Tobacco: No; Hx Alcohol Use: No Hx Substance Use: No Preferred Language: Maltese Communication Ability: Impaired Visual Impairment: No Limitations Hearing Ability: Use of Hearing Aid Television Production Assistant Required: No Beliefs That Will Affect Care: None marital status: / Current Living Situation: Significant Other Current Living Situation Comment: with S/O current occupational status: retired 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 [employer] How many Children do You have: 1 other: Retired age 52 Feels Safe at Home: Yes Childhood Exposure to Second-Hand Smoke: Yes Diet: regular Diet Comment: regular caffeine: Yes during the past year weight has: remained stable Dental Care, Regularly: Yes Physical Activity Frequency: Does not Exercise Seatbelt Use: always Sunscreen Use: No Assistive Devices: CPAP and Wheelchair Allergies Allergies Allergy/AdvReac Type Severity Reaction Status Date / Time salmeterol Allergy Mild Hives Verified 09/21/24 15:09 Home Meds Home Medications Medication Instructions Recorded Confirmed acetaminophen 650 mg 650 mg PO UD PRN Fever 02/18/20 12/04/24 tablet,extended release (Tylenol Arthritis Pain) resveratrol 50 mg capsule 50 mg PO QAM 07/13/21 12/04/24 cholecalciferol (vitamin D3) 125 125 mcg PO UD 07/25/21 12/04/24 mcg (5,000 unit) capsule coQ10 (ubiquinol) 200 mg capsule 200 mg PO UD 07/25/21 12/04/24 guaifenesin 600 mg tablet, 600 mg PO UD 11/23/21 12/04/24 extended release 12 hr (Mucinex) fexofenadine [Shilpi Allergy] 1 tab PO DAILY PRN Allergy Symptoms 07/19/22 12/04/24 docusate sodium 100 mg capsule 100 mg PO UD 03/05/24 12/04/24 (Colace) fish,bora,flax oils-om3,6,9no1 1 cap PO DIRECTED 03/05/24 12/04/24 [[place] 3-6-9] polyethylene glycol 3350 17 17 g PO UD 03/05/24 12/04/24 gram/dose oral powder (Miralax) albuterol sulfate 90 mcg/actuation 2 puff inhalation UD PRN Shortness 12/04/24 12/04/24 aerosol inhaler Of Breath melatonin 10 mg tablet 10 mg PO UD PRN sleep 12/04/24 12/04/24 miscellaneous medical supply 12/04/24 12/04/24 sertraline 100 mg tablet 150 mg PO DAILY 12/04/24 12/04/24 tramadol 50 mg tablet 50 mg PO UD PRN Pain 12/04/24 12/04/24 Previous Rx's Medication Instructions Recorded Auto Titrating CPAP #1 ea 08/01/21 CPAP Machine #1 ea 08/04/21 CPAP Supplies #1 ea 08/04/21 turmeric root extract 500 mg tablet 500 mg PO DAILY #30 tabs 07/19/22 ipratropium 0.5 mg-albuterol 3 mg 3 ml inhalation Q4H PRN Wheezing 12/02/23 (2.5 mg base)/3 mL nebulization #360 mL soln miscellaneous medical supply #1 ea 01/09/24 divalproex 500 mg tablet,extended 500 mg PO DAILY 90 days #90 tabs 02/10/24 release 24 hr (Depakote ER) fluticasone fur. 100 mcg-umeclid 1 inh inhalation DAILY #3 Inhalers 05/11/24 62.5 mcg-vilant 25 mcg inhalat.powder (Trelegy Ellipta) WHEELED WALKER #1 ea 06/24/24 lidocaine 5 % topical patch 1 patch topical Q24H #30 ea 07/09/24 omeprazole 40 mg capsule,delayed 40 mg PO DAILYBB #90 caps 07/13/24 release atorvastatin 40 mg tablet 40 mg PO .every other day #90 tabs 08/26/24 rivaroxaban 20 mg tablet (Xarelto) 20 mg PO QAM #90 tabs 08/26/24 Miscellaneous Pulmonary Supply #1 ea 09/25/24 Vibration Vest #1 ea 09/25/24 Miscellaneous Pulmonary Supply #1 ea 10/26/24 Results & Data (ED) Vital Signs Vital Signs - 24 hr 12/04/24 09:15 12/04/24 09:18 12/04/24 09:25 Temperature 37.2 C Temperature Source Oral Pulse Rate 97 H 99 H Pulse Rate [Apical] Pulse Rate from SpO2 Sensor 97 H Respiratory Rate 34 H 29 H Respiratory Effort / Characteristics Short of Breath Blood Pressure 128/79 128/79 Blood Pressure [Right Arm] Blood Pressure Mean 92 95 Blood Pressure Mean [Right Arm] Pulse Oximetry 92 90 Oxygen Delivery Method Room Air Sepsis Recent Fever Within 48 Hours No Sepsis New/Unexplained Change in Mental Status No Sepsis Action Taken by Nursing No Action Required 12/04/24 09:25 12/04/24 09:25 12/04/24 09:27 Temperature Temperature Source Pulse Rate 91 H Pulse Rate [Apical] 97 H Pulse Rate from SpO2 Sensor 94 H Respiratory Rate 28 H 32 H Respiratory Effort / Characteristics Blood Pressure Blood Pressure [Right Arm] 117/72 Blood Pressure Mean Blood Pressure Mean [Right Arm] 87 Pulse Oximetry 90 90 91 Oxygen Delivery Method Room Air Room Air Sepsis Recent Fever Within 48 Hours Sepsis New/Unexplained Change in Mental Status Sepsis Action Taken by Nursing 12/04/24 09:30 12/04/24 09:30 12/04/24 09:51 Temperature Temperature Source Pulse Rate 99 H 97 H Pulse Rate [Apical] Pulse Rate from SpO2 Sensor 91 H Respiratory Rate 32 H Respiratory Effort / Characteristics Blood Pressure 117/72 Blood Pressure [Right Arm] Blood Pressure Mean 92 Blood Pressure Mean [Right Arm] Pulse Oximetry 91 Oxygen Delivery Method Sepsis Recent Fever Within 48 Hours Sepsis New/Unexplained Change in Mental Status Sepsis Action Taken by Nursing 12/04/24 09:51 12/04/24 09:54 12/04/24 10:00 Temperature Temperature Source Pulse Rate 97 H 93 H Pulse Rate [Apical] Pulse Rate from SpO2 Sensor 88 94 H Respiratory Rate 35 H 32 H Respiratory Effort / Characteristics Blood Pressure 121/73 Blood Pressure [Right Arm] Blood Pressure Mean 86 Blood Pressure Mean [Right Arm] Pulse Oximetry 91 91 Oxygen Delivery Method Sepsis Recent Fever Within 48 Hours Sepsis New/Unexplained Change in Mental Status Sepsis Action Taken by Nursing 12/04/24 10:06 12/04/24 10:27 12/04/24 10:30 Temperature Temperature Source Pulse Rate 95 H 114 H Pulse Rate [Apical] Pulse Rate from SpO2 Sensor 93 H Respiratory Rate 24 19 Respiratory Effort / Characteristics Blood Pressure Blood Pressure [Right Arm] Blood Pressure Mean Blood Pressure Mean [Right Arm] Pulse Oximetry 91 Oxygen Delivery Method Sepsis Recent Fever Within 48 Hours Sepsis New/Unexplained Change in Mental Status Sepsis Action Taken by Nursing 12/04/24 10:42 12/04/24 10:51 12/04/24 11:00 Temperature Temperature Source Pulse Rate 96 H 96 H Pulse Rate [Apical] 95 H Pulse Rate from SpO2 Sensor 97 H Respiratory Rate 32 H 26 H 29 H Respiratory Effort / Characteristics Blood Pressure Blood Pressure [Right Arm] 124/73 Blood Pressure Mean Blood Pressure Mean [Right Arm] 90 Pulse Oximetry 93 91 Oxygen Delivery Method Room Air Sepsis Recent Fever Within 48 Hours Sepsis New/Unexplained Change in Mental Status Sepsis Action Taken by Nursing 12/04/24 11:00 12/04/24 11:21 12/04/24 11:24 Temperature Temperature Source Pulse Rate 104 H 124 H 90 Pulse Rate [Apical] Pulse Rate from SpO2 Sensor 96 H 91 H 91 H Respiratory Rate 21 21 27 H Respiratory Effort / Characteristics Blood Pressure Blood Pressure [Right Arm] Blood Pressure Mean Blood Pressure Mean [Right Arm] Pulse Oximetry 90 94 95 Oxygen Delivery Method Sepsis Recent Fever Within 48 Hours Sepsis New/Unexplained Change in Mental Status Sepsis Action Taken by Nursing 12/04/24 11:32 12/04/24 11:33 12/04/24 11:42 Temperature Temperature Source Pulse Rate 96 H 90 Pulse Rate [Apical] Pulse Rate from SpO2 Sensor 89 90 Respiratory Rate 32 H 23 Respiratory Effort / Characteristics Blood Pressure 134/78 Blood Pressure [Right Arm] Blood Pressure Mean 92 Blood Pressure Mean [Right Arm] Pulse Oximetry 94 95 Oxygen Delivery Method Sepsis Recent Fever Within 48 Hours Sepsis New/Unexplained Change in Mental Status Sepsis Action Taken by Nursing 12/04/24 12:12 Temperature Temperature Source Pulse Rate 91 H Pulse Rate [Apical] Pulse Rate from SpO2 Sensor Respiratory Rate 32 H Respiratory Effort / Characteristics Blood Pressure Blood Pressure [Right Arm] Blood Pressure Mean Blood Pressure Mean [Right Arm] Pulse Oximetry Oxygen Delivery Method Sepsis Recent Fever Within 48 Hours Sepsis New/Unexplained Change in Mental Status Sepsis Action Taken by Nursing Laboratory Data 12/04/24 09:20 12/04/24 09:20 Lab Results 12/04/24 12/04/24 12/04/24 Range/Units 09:20 09:51 10:31 WBC 26.40 H (4.8-10.8) K/ul RBC 4.64 L (4.70-6.10) M/uL Hgb 12.4 L (14.0-18.0) g/dl Hct 38.4 L (42.0-52.0) % MCV 82.8 (80.0-100.0) fL MCH 26.7 (25.0-34.0) pg MCHC 32.3 (32.0-36.0) g/dL RDW Std Deviation 41.3 (36.4-46.3) fL RDW Coeff of [place] 13.8 (11.5-14.5) % Plt Count 321 (130-400) K/uL MPV 10.7 (9.4-12.4) fL Immature Gran % (Auto) 0.7 % Neut % (Auto) 89.8 % Lymph % (Auto) 2.5 % [place] % (Auto) 6.5 % Eos % (Auto) 0.3 % Baso % (Auto) 0.2 % Neut # (Auto) 23.70 H (1.40-6.50) K/uL Lymph # (Auto) 0.66 L (1.20-3.40) K/uL [place] # (Auto) 1.72 H (0.11-0.59) K/uL Eos # (Auto) 0.08 (0.00-0.50) K/uL Baso # (Auto) 0.06 (0.00-0.20) K/uL Immature Gran # (Auto) 0.18 (0.01-0.20) K/uL RBC Morphology Unremarkable Sodium 141 (136-145) mmol/L Potassium 3.6 (3.5-5.1) mmol/L Chloride 103 (98-107) mmol/L Carbon Dioxide 27 (21-32) mmol/L Anion Gap 11 (3-11) BUN 22 (6-23) mg/dl Creatinine 0.81 (0.6-1.4) mg/dl Est Cr Clr Drug Dosing 86.5 ml/min eGFR 89.69 BUN/Creatinine Ratio 27.2 H (10-20) Glucose 189 H (70-99(Fasting)) mg/dl Lactate 1.5 (0.4-2.0) mmol/L Calcium 9.0 (8.6-10.3) mg/dl Magnesium 1.7 (1.7-2.4) mg/dl Total Bilirubin 0.7 (0.2-1.0) mg/dl Direct Bilirubin 0.2 (0-0.2) mg/dl AST 26 (13-39) U/L ALT 23 (7-52) U/L Alkaline Phosphatase 86 (34-104) U/L Troponin I High Sens 279.9 H* (0-20) pg/ml B-Natriuretic Peptide 188 H (0-100) pg/ml Total Protein 6.8 (6.0-8.3) gm/dl Albumin 3.5 (3.4-5.0) gm/dl Procalcitonin 0.25 (0-0.5) ng/ml TSH 2.165 (0.300-4.500) uIu/ml Nasal Screen MRSA (PCR) (Negative) Adenovirus (PCR) Not Detected (NotDetected) B. pertussis DNA (PCR) Not Detected (NotDetected) B.parapertussis DNA PCR Not Detected (NotDetected) C. pneumoniae DNA (PCR) Not Detected (NotDetected) Coronavirus OC43 (PCR) Not Detected (NotDetected) Coronavirus HKU1 (PCR) Not Detected (NotDetected) Coronavirus 229E (PCR) Not Detected (NotDetected) SARS-CoV-2 (PCR) Not Detected (NotDetected) Coronavirus NL63 (PCR) Not Detected (NotDetected) Human Metapneumovir PCR Not Detected (NotDetected) Influenza A (H3) PCR DETECTED A (NotDetected) Influenza Type B (PCR) Not Detected (NotDetected) M. pneumoniae (PCR) Not Detected (NotDetected) Parainfluenza 1 (PCR) Not Detected (NotDetected) Parainfluenza 2 (PCR) Not Detected (NotDetected) Parainfluenza 3 (PCR) Not Detected (NotDetected) Parainfluenza 4 (PCR) Not Detected (NotDetected) RSV (PCR) Not Detected (NotDetected) Entero/Rhino (PCR) Not Detected (NotDetected) 12/04/24 Range/Units 10:51 WBC (4.8-10.8) K/ul RBC (4.70-6.10) M/uL Hgb (14.0-18.0) g/dl Hct (42.0-52.0) % MCV (80.0-100.0) fL MCH (25.0-34.0) pg MCHC (32.0-36.0) g/dL RDW Std Deviation (36.4-46.3) fL RDW Coeff of [place] (11.5-14.5) % Plt Count (130-400) K/uL MPV (9.4-12.4) fL Immature Gran % (Auto) % Neut % (Auto) % Lymph % (Auto) % [place] % (Auto) % Eos % (Auto) % Baso % (Auto) % Neut # (Auto) (1.40-6.50) K/uL Lymph # (Auto) (1.20-3.40) K/uL [place] # (Auto) (0.11-0.59) K/uL Eos # (Auto) (0.00-0.50) K/uL Baso # (Auto) (0.00-0.20) K/uL Immature Gran # (Auto) (0.01-0.20) K/uL RBC Morphology Sodium (136-145) mmol/L Potassium (3.5-5.1) mmol/L Chloride (98-107) mmol/L Carbon Dioxide (21-32) mmol/L Anion Gap (3-11) BUN (6-23) mg/dl Creatinine (0.6-1.4) mg/dl Est Cr Clr Drug Dosing ml/min eGFR BUN/Creatinine Ratio (10-20) Glucose (70-99(Fasting)) mg/dl Lactate (0.4-2.0) mmol/L Calcium (8.6-10.3) mg/dl Magnesium (1.7-2.4) mg/dl Total Bilirubin (0.2-1.0) mg/dl Direct Bilirubin (0-0.2) mg/dl AST (13-39) U/L ALT (7-52) U/L Alkaline Phosphatase (34-104) U/L Troponin I High Sens (0-20) pg/ml B-Natriuretic Peptide (0-100) pg/ml Total Protein (6.0-8.3) gm/dl Albumin (3.4-5.0) gm/dl Procalcitonin (0-0.5) ng/ml TSH (0.300-4.500) uIu/ml Nasal Screen MRSA (PCR) Negative (Negative) Adenovirus (PCR) (NotDetected) B. pertussis DNA (PCR) (NotDetected) B.parapertussis DNA PCR (NotDetected) C. pneumoniae DNA (PCR) (NotDetected) Coronavirus OC43 (PCR) (NotDetected) Coronavirus HKU1 (PCR) (NotDetected) Coronavirus 229E (PCR) (NotDetected) SARS-CoV-2 (PCR) (NotDetected) Coronavirus NL63 (PCR) (NotDetected) Human Metapneumovir PCR (NotDetected) Influenza A (H3) PCR (NotDetected) Influenza Type B (PCR) (NotDetected) M. pneumoniae (PCR) (NotDetected) Parainfluenza 1 (PCR) (NotDetected) Parainfluenza 2 (PCR) (NotDetected) Parainfluenza 3 (PCR) (NotDetected) Parainfluenza 4 (PCR) (NotDetected) RSV (PCR) (NotDetected) Entero/Rhino (PCR) (NotDetected) Administered Medications Albuterol (Albut/Ipratrop 3mg/0.5mg Neb 3 Ml Vial) 3 ml INH Q6R ADOLFO Stop: 01/03/25 15:40 Last Admin: 12/04/24 16:43 Dose: Not Given Documented By: EAM Piperacillin Sod/Tazobactam Sod (Zosyn) 4.5 gm in 100 mls @ 25 mls/hr IV Q8H ADOLFO; Protocol Stop: 12/09/24 15:59 Last Admin: 12/04/24 16:23 Dose: 25 mls/hr Documented By: MTM Polyethylene Glycol (Polyethylene (Miralax) 17 Gm Pack) 17 gm PO DAILY ADOLFO Stop: 01/03/25 15:40 Last Admin: 12/04/24 16:21 Dose: Not Given Documented By: MTM Discontinued Medications Sodium Chloride (Nss) 1,000 mls @ 999 mls/hr IV .Q1H1M ONE Stop: 12/04/24 11:02 Last Infusion: 12/04/24 11:43 Dose: Infused Documented By: Admin: 12/04/24 10:42 Dose: 999 mls/hr Documented By: GEOFFREY Piperacillin Sod/Tazobactam Sod (Zosyn) 4.5 gm in 100 mls @ 200 mls/hr IV NOW ONE Stop: 12/04/24 10:51 Last Infusion: 12/04/24 11:43 Dose: Infused Documented By: Admin: 12/04/24 10:49 Dose: 200 mls/hr Documented By: GEOFFREY Oseltamivir Phosphate (Oseltamivir Phosphate 75 Mg Cap) 75 mg PO NOW STA; Protocol Stop: 12/04/24 11:33 Last Admin: 12/04/24 11:42 Dose: 75 mg Documented By: GEOFFREY Imaging Data Radiologist's Impression: Head CT 12/04/24 09:38 CT head/brain wo con CLINICAL HISTORY: multiple falls, weakness, head injury possible. TECHNIQUE: Multiple axial CT images of the head were obtained without contrast. A dose lowering technique was utilized adhering to the principles of ALARA. Sagittal and coronal reconstructions were done. CT DOSE: 625.8 mGy.cm COMPARISON: 04/15/2024 FINDINGS: CT findings are stable. There is no intra-axial or extra-axial fluid collection, hemorrhage, or mass. There is global atrophy with pronounced small vessel insufficiency changes and probable old small bilateral lacunar infarcts. There is no skull fracture identified. IMPRESSION: Stable senescent changes; no acute intracranial process. ACT 112: Negative or not required by law. The above report was generated using voice recognition software. It may contain grammatical, syntax or spelling errors. Electronically signed by: Patrizia Quintero M.D. 12/04/2024 10:29 AM Chest X-Ray 12/04/24 09:39 XR chest 1V portable CLINICAL HISTORY: fall, weakness COMPARISON STUDY: 04/15/2024 FINDINGS: Heart size and pulmonary vasculature are normal. Inspiration is shallow. No effusion, consolidation, or pneumothorax. Stable old healed left mid rib fracture. No acute osseous finding seen. IMPRESSION: No acute findings seen. ACT 112: Negative or not required by law. Electronically signed by: Edwardo Chacko M.D. 12/04/2024 10:48 AM Discharge Plan Visit Data Chief Complaint: Confusion ED Provider: Kb Webster Discharge Problem: Influenza A, Sepsis, Generalized weakness, Leukocytosis, Elevated troponin Patient Disposition: Admitted As Inpatient Discharge Instructions Interventions: ED Discharge Assessment Last Done: 12/04/24 14:53 Discharge Problem: Sepsis Qualifiers: Sepsis type: sepsis due to unspecified organism Sepsis acute organ dysfunction status: with acute organ dysfunction Severe sepsis acute organ dysfunction type: encephalopathy Severe sepsis shock status: without septic shock Qualified Code(s): A41.9 - Sepsis, unspecified organism; R65.20 - Severe sepsis without septic shock; G93.41 - Metabolic encephalopathy Leukocytosis Qualifiers: Leukocytosis type: unspecified Qualified Code(s): D72.829 - Elevated white blood cell count, unspecified
[2024-12-04 10:00] LABS: Hematocrit (blood only) 38.4 % (42.0-52.0); Hemoglobin 12.4 g/dl (14.0-18.0); Mean Corpuscular Hemoglobin 26.7 pg (25.0-34.0); Mean Corpuscular Hgb Conc 32.3 g/dL (32.0-36.0); Mean Corpuscular Volume 82.8 fL (80.0-100.0); Mean Platelet Volume 10.7 fL (9.4-12.4); Platelet Count 321 K/uL (130-400); RDW Coefficient of Variation 13.8 % (11.5-14.5); RDW Standard Deviation 41.3 fL (36.4-46.3); Red Blood Count 4.64 M/uL (4.70-6.10)
[2024-12-04 10:17] LABS: Albumin Level 3.5 gm/dl (3.4-5.0); BUN Creatinine Ratio 27.2 (10-20); Bilirubin Direct 0.2 mg/dl (0-0.2); Bilirubin,Total 0.7 mg/dl (0.2-1.0); Creatinine Clr Calc Pharmacy 86.5 ml/min; Magnesium 1.7 mg/dl (1.7-2.4); Potassium 3.6 mmol/L (3.5-5.1); Total Protein 6.8 gm/dl (6.0-8.3)
[2024-12-04 10:27] LABS: Basophils # (auto) 0.06 K/uL (0.00-0.20); Basophils % (auto) 0.2 %; Eosinophils # (auto) 0.08 K/uL (0.00-0.50); Eosinophils % (auto) 0.3 %; Immature Granulocytes # (auto) 0.18 K/uL (0.01-0.20); Immature Granulocytes % (auto) 0.7 %; Lymphocytes # (auto) 0.66 K/uL (1.20-3.40); Lymphocytes % (auto) 2.5 %; Monocytes # (auto) 1.72 K/uL (0.11-0.59); Monocytes % (auto) 6.5 %; Neutrophils % (auto) 89.8 %; RBC Morphology Unremarkable
--- NOTE | 2024-12-04 10:31 | CT Scan Report ---
CT head/brain wo con CLINICAL HISTORY: multiple falls, weakness, head injury possible. TECHNIQUE: Multiple axial CT images of the head were obtained without contrast. A dose lowering tech nique was utilized adhering to the principles of ALARA. Sagittal and coronal reconstructions were don e. CT DOSE: 625.8 mGy.cm COMPARISON: 04/15/2024 FINDINGS: CT findings are stable. There is no intra-axial or extra-axial fluid collection, hemorrhage , or mass. There is global atrophy with pronounced small vessel insufficiency changes and probable ol d small bilateral lacunar infarcts. There is no skull fracture identified. IMPRESSION: Stable senescent changes; no acute intracranial process. ACT 112: Negative or not required by law. The above report was generated using voice recognition software. It may contain grammatical, syntax o r spelling errors. Electronically signed by: Patrizia Quintero M.D. 12/04/2024 10:29 AM
[2024-12-04 10:33] LABS: Thyroid Stimulating Hormone 2.165 uIu/ml (0.300-4.500)
[2024-12-04 10:37] LABS: Adenovirus PCR Not Detected (NotDetected); Bordetella parapertussis PCR Not Detected (NotDetected); Bordetella pertussis PCR Not Detected (NotDetected); Chlamydia pneumoniae PCR Not Detected (NotDetected); Coronavirus 229E PCR Not Detected (NotDetected); Coronavirus CoV-2 (COVID19)PCR Not Detected (NotDetected); Coronavirus HKU1 PCR Not Detected (NotDetected); Coronavirus NL63 PCR Not Detected (NotDetected); Coronavirus OC43PCR Not Detected (NotDetected); Human Metapneumovirus PCR Not Detected (NotDetected); Influenza A (H3) PCR DETECTED (NotDetected); Influenza B PCR Not Detected (NotDetected); Mycoplasma pneumoniae PCR Not Detected (NotDetected); Parainfluenza Virus 1 PCR Not Detected (NotDetected); Parainfluenza Virus 2 PCR Not Detected (NotDetected); Parainfluenza Virus 3 PCR Not Detected (NotDetected); Parainfluenza Virus 4 PCR Not Detected (NotDetected); Respiratory Syncytial VirusPCR Not Detected (NotDetected); Rhinovirus/Enterovirus PCR Not Detected (NotDetected)
[2024-12-04] MEDS: SODIUM CHLORIDE 0.9% 1,000 ML IV ONE (10:42)
[2024-12-04 10:46] LABS: Troponin I High Sensitivity 279.9 pg/ml (0-20)
[2024-12-04] MEDS: PIPERACILLIN/TAZOBACTAM 4.5 GM/100 ML BAG IV ONE (10:49)
--- NOTE | 2024-12-04 10:50 | XRay Report ---
XR chest 1V portable CLINICAL HISTORY: fall, weakness COMPARISON STUDY: 04/15/2024 FINDINGS: Heart size and pulmonary vasculature are normal. Inspiration is shallow. No effusion, conso lidation, or pneumothorax. Stable old healed left mid rib fracture. No acute osseous finding seen. IMPRESSION: No acute findings seen. ACT 112: Negative or not required by law. Electronically signed by: Edwardo Chacko M.D. 12/04/2024 10:48 AM
--- NOTE | 2024-12-04 11:36 | History & Physical Report ---
Date of Service December 04, 2024 Assessment & Plan (1) Influenza A: (2) Hypoxia: (3) Pneumonia: (4) PAF (paroxysmal atrial fibrillation): (5) 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: Cecil Choudhury is a 79-year-old male with PMHx of CVA with residual left-sided deficits, paroxysmal atrial fibrillation (on rivaroxaban), CAD s/p stented coronary artery, factor VIII inhibitor disorder, COPD, and HEYDI. He presented via EMS on 12/04 for SOB and AMS. Most of the history is obtained from patient's friend (Tammy), who the patient lives with, at bedside. She reports that the patient has had symptoms for the past 1.5 weeks, that have gradually worsened. Initially, he was having weakness and difficulty standing, which happens whenever he develops cold-like symptoms. He does have h/o stroke with residual left-sided deficits, and initially she thought it might be secondary to that. However, over the last 3 to 4 days, he has developed episodes of difficulty breathing, productive cough (clear sputum production), low-grade fever, and one episode of sweating, and bright red blood on the corner of his lips. #Influenza A Influenza A (+) on arrival Droplet isolation precautions Tamiflu 75 mg p.o. BID Supportive care Acetaminophen as needed for pain/fever Guaifenesin 1200 mg p.o. q12h Incentive spirometry, flutter valve #Hypoxia Reported episode of hypoxia in the 70% range at home Patient is 95% on RA at time of admission ? Mucous plugging Hypertonic 7% nebulizers BID Continuous pulse oximetry #Concomitant pneumonia Leukocytosis at 26.40 on arrival Procalcitonin WNL CXR revealed no acute findings Given risk factors, leukocytosis, and comorbidities, will cover with empiric Zosyn 4.5 g IV q8h for now #Elevated troponin Troponin elevated at 279-->1689; trend to peak Patient is chest pain-free at time of admission However, he does note that he had 2 hours of substernal chest pain on the morning of 12/04 No radiation to the left shoulder or arm, but did have some radiation to the back Case discussed with cardiology ? EKG may exhibit acute territorial changes in lead II vs lead reversal on old EKG Unclear if this is chest pain due to Influenza/PNA + demand ischemia in the setting of viral illness vs cardiac event Stat echocardiogram ordered, pending Continuous telemetry monitoring #Altered mental status -resolved Head CT without acute finding Resolved prior to ED arrival; per family, at baseline Chronic stable issues: #Myoclonic disorder-depakote #Paroxysmal atrial fibrillationrivaroxaban #HLDatorvastatin #GERDomeprazole #Depressionsertraline #COPDHome inhalers #OSACPAP at bedtime Disposition: Admit to MedSurg telemetry DNR/DNI Heart healthy diet VTE PPx: On rivaroxaban History of Present Illness Chief Complaint: Confusion, productive cough Primary Care Provider: Lita Najera DO Kei is a 79-year-old male with PMHx of CVA with residual left-sided deficits, paroxysmal atrial fibrillation (on rivaroxaban), CAD s/p stented coronary artery, factor VIII inhibitor disorder, COPD, and HEYDI. He presented via EMS on 12/04 for SOB and AMS. Most of the history is obtained from patient's friend (Tammy), who the patient lives with, at bedside. She reports that the patient has had symptoms for the past 1.5 weeks, that have gradually worsened. Initially, he was having weakness and difficulty standing, which is, whenever he develops colds. He does have history of a stroke with residual left-sided deficits. However, over the last 3 to 4 days, he has developed episodes of difficulty breathing, productive cough (clear sputum production), and had an episode of sweating, and bright red blood on his lip. Tammy reports that the patient became hypoxic at 0730 this morning with SpO2 in the 70-79% range on home pulse ox. On EMS arrival, the patient reportedly did exhibit labored breathing. There was also some concern for confusion/altered mental status prior to ED arrival, but this has resolved (per family), and patient is currently at his cognitive baseline. Patient denies any SOB at rest or with exertion at this time. Patient's friend reports that he did have a low-grade fever around 100 F 4 days ago, but took Tylenol, and this resolved. He does take Tylenol on a daily basis for his arthritis. Additionally, patient's friend helps manage his medications at home. He took all his regular morning medicines today, including his Xarelto which he takes daily with breakfast. His only recent change in medications was that he was switched to Depakote for his history of myoclonus in the setting of stroke. Patient does not use up on oxygen at baseline. He does use a CPAP at night. He does not have prior history of OH, but does have a history of cardiac stent; not currently on aspirin and Plavix (?Due to history of lupus anticoagulant) but currently takes Xarelto. Patient's vitals are stable at time of admission; SpO2 95% on RA ED course: NSS 1000 mg IV Zosyn 4.5 g IV Tamiflu 75 mg p.o. ROS: Patient endorses low-grade fever at home, hypoxia, productive cough (clear sputum), coughing so bad at times that he "projectile vomits" mucus, lightheadedness with standing, generalized fatigue, and difficulty walking. Patient denies chest pain, pleuritic CP, SOB at rest or with exertion (at present), chest palpitations, abdominal pain, nausea, diarrhea, or blood in the urine or stool. Allergies Allergy/AdvReac Type Severity Reaction Status Date / Time salmeterol Allergy Mild Hives Verified 09/21/24 15:09 Home Medications Medication Instructions Recorded Confirmed Type acetaminophen 650 mg 650 mg PO UD PRN Fever 02/18/20 12/04/24 History tablet,extended release (Tylenol Arthritis Pain) resveratrol 50 mg capsule 50 mg PO QAM 07/13/21 12/04/24 History cholecalciferol (vitamin D3) 125 125 mcg PO UD 07/25/21 12/04/24 History mcg (5,000 unit) capsule coQ10 (ubiquinol) 200 mg capsule 200 mg PO UD 07/25/21 12/04/24 History Auto Titrating CPAP #1 ea 08/01/21 09/21/24 Rx CPAP Machine #1 ea 08/04/21 09/21/24 Rx CPAP Supplies #1 ea 08/04/21 09/21/24 Rx guaifenesin 600 mg tablet, 600 mg PO UD 11/23/21 12/04/24 History extended release 12 hr (Mucinex) fexofenadine [Shilpi Allergy] 1 tab PO DAILY PRN Allergy Symptoms 07/19/22 12/04/24 History turmeric root extract 500 mg tablet 500 mg PO DAILY #30 tabs 07/19/22 12/04/24 Rx ipratropium 0.5 mg-albuterol 3 mg 3 ml inhalation Q4H PRN Wheezing 12/02/23 12/04/24 Rx (2.5 mg base)/3 mL nebulization #360 mL soln miscellaneous medical supply #1 ea 01/09/24 09/21/24 Rx divalproex 500 mg tablet,extended 500 mg PO DAILY 90 days #90 tabs 02/10/24 12/04/24 Rx release 24 hr (Depakote ER) docusate sodium 100 mg capsule 100 mg PO UD 03/05/24 12/04/24 History (Colace) fish,bora,flax oils-om3,6,9no1 1 cap PO DIRECTED 03/05/24 12/04/24 History [[place] 3-6-9] polyethylene glycol 3350 17 17 g PO UD 03/05/24 12/04/24 History gram/dose oral powder (Miralax) fluticasone fur. 100 mcg-umeclid 1 inh inhalation DAILY #3 Inhalers 05/11/24 12/04/24 Rx 62.5 mcg-vilant 25 mcg inhalat.powder (Trelegy Ellipta) KULDEEP WALKER #1 ea 06/24/24 09/21/24 Rx lidocaine 5 % topical patch 1 patch topical Q24H #30 ea 07/09/24 12/04/24 Rx omeprazole 40 mg capsule,delayed 40 mg PO DAILYBB #90 caps 07/13/24 12/04/24 Rx release atorvastatin 40 mg tablet 40 mg PO .every other day #90 tabs 08/26/24 12/04/24 Rx rivaroxaban 20 mg tablet (Xarelto) 20 mg PO QAM #90 tabs 08/26/24 12/04/24 Rx Miscellaneous Pulmonary Supply #1 ea 09/25/24 09/25/24 Rx Vibration Vest #1 ea 09/25/24 09/25/24 Rx Miscellaneous Pulmonary Supply #1 ea 10/26/24 Rx albuterol sulfate 90 mcg/actuation 2 puff inhalation UD PRN Shortness 12/04/24 12/04/24 History aerosol inhaler Of Breath melatonin 10 mg tablet 10 mg PO UD PRN sleep 12/04/24 12/04/24 History miscellaneous medical supply 12/04/24 12/04/24 History sertraline 100 mg tablet 150 mg PO DAILY 12/04/24 12/04/24 History tramadol 50 mg tablet 50 mg PO UD PRN Pain 12/04/24 12/04/24 History Past Med/Surg History Problem List (Updated 12/04/24 @ 12:30 by Ron Theodore PA-C) Hypoxia Pneumonia Influenza A Obstructive lung disease Excessive oral secretions Bulbar weakness Aspiration into airway H/O arterial ischemic stroke (Acute) Rotator cuff arthropathy of left shoulder Excessive cerumen in both ear canals Recurrent aspiration events Hypomagnesemia Chronic obstructive pulmonary disease 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 (02/2020) Benign localized prostatic hyperplasia with lower urinary tract symptoms (LUTS) HEYDI (obstructive sleep apnea) (09/2014) Paroxysmal SVT (supraventricular tachycardia) PAF (paroxysmal atrial fibrillation) PAC (premature atrial contraction) Seizure-like activity History of tobacco abuse Dysphagia Acquired deviated nasal septum 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 Elena removes Peg tube Pulmonary embolism Arthritis Surgical History Status post insertion of percutaneous endoscopic gastrostomy (PEG) tube History of sinus surgery History of bronchoscopy PEG (percutaneous endoscopic gastrostomy) status (~12/2019) placed due to stroke and then had bleeding after PEG tube insertion was sent to [facility] and found weak vessel in small bowel and clamped it had blood transfusion History of cardiac catheterization (~05/01/10) 05/01/2010-PCI of OM 2 with CAROLINE H/O knee surgery Family History Mother Heart disease Hypertension Father Emphysema, unspecified Hearing loss Grandfather Stroke Son Stroke Son Stroke, Onset Age: 52 Denies family history of Ovarian cancer Prostate cancer Breast cancer Lung cancer Colorectal cancer Cancer Asthma Social History Smoking Status: Former smoker Tobacco Type: Cigarettes Age Started Using Tobacco: 15; Age Quit Using Tobacco: 30; packs per day: 2; Cigarettes Per Day: 1.5 PPD; Second Hand Exposure: No; Do You Dip or Chew Tobacco: No; Hx Alcohol Use: No Hx Substance Use: No Preferred Language: Mongolian Communication Ability: Effective Visual Impairment: No Limitations Hearing Ability: Use of Hearing Aid Solids Control Technician Required: No Beliefs That Will Affect Care: None marital status: / Current Living Situation: Significant Other Current Living Situation Comment: with S/O current occupational status: retired 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 [employer] How many Children do You have: 1 other: Retired age 52 Feels Safe at Home: Yes Childhood Exposure to Second-Hand Smoke: Yes Diet: regular Diet Comment: regular caffeine: Yes during the past year weight has: remained stable Dental Care, Regularly: Yes Physical Activity Frequency: Does not Exercise Seatbelt Use: always Sunscreen Use: No Assistive Devices: CPAP, Walker and Wheelchair Review of Systems Review of Systems: See HPI above Physical Exam Physical Exam: General: no acute distress; however, patient will occasionally develop a hacking cough and become red in the face; non-toxic appearing; well-nourished; co operative; family at bedside; SpO2 95% on RA HEENT: normocephalic, atraumatic; no scleral icterus; PERRLA w/ EOMs intact; vision intact; hard of hearing Neck: supple; no lymphadenopathy; trachea midline Skin: warm, dry without signs of tenting; no cyanosis; no rashes, bruising, lesions, or erythema noted CV: chest wall NTP; RR, mildly tachycardic; S1/S2 normal; no murmurs/rubs/gallops; pulses intact and symmetric at radial, DP, and PT Lungs: no acute respiratory distress; hacking cough; symmetrical chest wall expansion; mild bibasilar crackles in lower lung serrano bilaterally ABD: Soft, NTP; BS present; no rebound/guarding; moderate distention secondary to body habitus MSK: no tics or fasciculations; +1 pitting edema noted in the LEs b/l, nonerythematous Neuro: A&Ox3; normal mood and affect; fluent speech; no focal deficits; he report sensation is intact and symmetric in the lower extremities bilaterally Results & Data Results & Data Vital Signs (Past 12 Hours) Vital Signs Temp Pulse Pulse Resp BP BP Pulse Ox 12/04/24 11:00 104 H 21 90 12/04/24 11:00 95 H 29 H 124/73 91 12/04/24 10:51 96 H 26 H 93 12/04/24 10:42 96 H 32 H 12/04/24 10:30 114 H 19 12/04/24 10:27 95 H 24 12/04/24 10:06 91 12/04/24 10:00 121/73 12/04/24 09:54 93 H 32 H 91 12/04/24 09:51 97 H 35 H 91 12/04/24 09:51 97 H 12/04/24 09:30 117/72 12/04/24 09:30 99 H 32 H 91 12/04/24 09:27 91 H 32 H 91 12/04/24 09:25 97 H 28 H 117/72 90 12/04/24 09:25 90 12/04/24 09:25 37.2 C 99 H 29 H 128/79 90 12/04/24 09:18 97 H 34 H 92 12/04/24 09:15 128/79 O2 Del Method 12/04/24 11:00 12/04/24 11:00 Room Air 12/04/24 10:51 12/04/24 10:42 12/04/24 10:30 12/04/24 10:27 12/04/24 10:06 12/04/24 10:00 12/04/24 09:54 12/04/24 09:51 12/04/24 09:51 12/04/24 09:30 12/04/24 09:30 12/04/24 09:27 12/04/24 09:25 Room Air 12/04/24 09:25 Room Air 12/04/24 09:25 Room Air 12/04/24 09:18 12/04/24 09:15 Laboratory Results Abnormal lab results 12/04/24 12/04/24 Range/Units 09:20 09:51 WBC 26.40 H (4.8-10.8) K/ul RBC 4.64 L (4.70-6.10) M/uL Hgb 12.4 L (14.0-18.0) g/dl Hct 38.4 L (42.0-52.0) % Neut # (Auto) 23.70 H (1.40-6.50) K/uL Lymph # (Auto) 0.66 L (1.20-3.40) K/uL [place]ath # (Auto) 1.72 H (0.11-0.59) K/uL BUN/Creatinine Ratio 27.2 H (10-20) Glucose 189 H (70-99(Fasting)) mg/dl Troponin I High Sens 279.9 H* (0-20) pg/ml B-Natriuretic Peptide 188 H (0-100) pg/ml Influenza A (H3) PCR DETECTED A (NotDetected) Diagnostic Findings Head CT 12/04/24 09:38 CT head/brain wo con CLINICAL HISTORY: multiple falls, weakness, head injury possible. TECHNIQUE: Multiple axial CT images of the head were obtained without contrast. A dose lowering technique was utilized adhering to the principles of ALARA. Sagittal and coronal reconstructions were done. CT DOSE: 625.8 mGy.cm COMPARISON: 04/15/2024 FINDINGS: CT findings are stable. There is no intra-axial or extra-axial fluid collection, hemorrhage, or mass. There is global atrophy with pronounced small vessel insufficiency changes and probable old small bilateral lacunar infarcts. There is no skull fracture identified. IMPRESSION: Stable senescent changes; no acute intracranial process. ACT 112: Negative or not required by law. The above report was generated using voice recognition software. It may contain grammatical, syntax or spelling errors. Electronically signed by: Patrizia Quintero M.D. 12/04/2024 10:29 AM Chest X-Ray 12/04/24 09:39 XR chest 1V portable CLINICAL HISTORY: fall, weakness COMPARISON STUDY: 04/15/2024 FINDINGS: Heart size and pulmonary vasculature are normal. Inspiration is shallow. No effusion, consolidation, or pneumothorax. Stable old healed left mid rib fracture. No acute osseous finding seen. IMPRESSION: No acute findings seen. ACT 112: Negative or not required by law. Electronically signed by: Edwardo Chacko M.D. 12/04/2024 10:48 AM ECG Additional Comments: ECG ordered, pending Code Status & VTE Plan Code Status DNR/DNI VTE Prophylaxis Plan VTE Prophylaxis will be ordered: Yes Supervising Physician Co-Signing Physician Notes Patient seen and examined, chart reviewed, case discussed with Ron Theodore PA-C and I agree with the assessment and plan as above except as otherwise noted Labs and images reviewed 79-year-old male with history of obstructive lung disease, CVA, COPD, paroxysmal A-fib on anticoagulation, prior CVA with left hemiparesis, CAD with history of PCI, who presents with shortness of breath and confusion/altered mental status. Patient is flu a positive. He is hypoxic, improved on ER reassessment but was in the 70s at home. He has a suspected pneumonia with leukocytosis, dyspnea, cough, and shortness of breath. Troponin is elevated on admission and with a rise on recheck. Baseline EKG right bundle with first-degree AV block. Did discuss EKG with cardiology. Reviewed old leads and with concern for morphology changes in inferior leads. On review is suspected to have lead reversal on the old EKG, low suspicion for true territorial changes. Patient does report that he had some chest pain this morning prior to admission which was likely demand in the setting of his flu and pneumonia. This has resolved by time of reassessment. Will trend troponin overnight, order stat echo, and continue to follow. Agree with treatment as above. PG Care Time/CCT Total # of Minutes Spent Total Time Spent with Patient: Total time spent is greater than 50% in coordination of care (as documented) at patient's floor/unit and/or counseling patient: [place] [address] INT INP/OBS CARE 3/75MIN Patient Type Established History Comprehensive Exam Comprehensive Medical Decision Making High Complexity Diagnoses Influenza A J10.1 Hypoxia R09.02 Pneumonia J18.9 PAF (paroxysmal atrial fibrillation) I48.0 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
[2024-12-04] MEDS: OSELTAMIVIR PHOSPHATE 75 MG CAP PO STA (11:42)
[2024-12-04] MEDS ORDERED: ONDANSETRON INJ 2 MG/ML 2 ML VIAL IV PRN (15:41)
[2024-12-04] MEDS ORDERED: traMADol HCL 50 MG TABLET PO PRN (15:41)
--- NOTE | 2024-12-04 15:54 | XCELERA ---
[id number]
[2024-12-04] MEDS: POLYETHYLENE (MIRALAX) 17 GM PACK PO SCH (16:21)
[2024-12-04] MEDS: PIPERACILLIN/TAZOBACTAM 4.5 GM/100 ML BAG IV SCH (16:23)
[2024-12-04] MEDS: ALBUT/IPRATROP 3MG/0.5MG NEB 3 ML VIAL INH SCH (16:43)
[2024-12-04] MEDS: SODIUM CHLOR 7% 4 ML NEB NEB SCH (19:45)
[2024-12-04] MEDS: MELATONIN 3 MG TAB PO PRN (20:21)
[2024-12-04] MEDS: guaiFENesin 600 MG TABCR PO SCH (20:21)
[2024-12-04] MEDS: OSELTAMIVIR PHOSPHATE 75 MG CAP PO SCH (20:21)
[2024-12-04 21:54] LABS: Appearance Urine Turbid (Clear); Bacteria Urine Automated None Seen (None Seen); Bilirubin Urine 1+ (Negative); Blood Urine Negative (Negative); Cast Urine Automated 0-2 /lpf (0-2); Color Urine Dark Yellow; Glucose Urine UA Negative (Negative); Ketones Urine 2+ (Negative); Leukocyte Esterase Urine Negative (Negative); Nitrite Urine Negative (Negative); Protein Urine 1+ (Negative); Specific Gravity Urine > 1.045 (1.000-1.030); Starch Talc Urine Present (None Prsent); Urobilinogen Urine Negative (Negative); WBC Urine Automated 0-5 /hpf (0-5); pH Urine 5.5 (4.5-7.5)
--- NOTE | 2024-12-05 04:04 | XRay Report ---
EXAM: XR chest 1V portable CLINICAL HISTORY: increased work of breathing TECHNIQUE: An X-ray image of the chest is obtained in AP projection. COMPARISON: 04/15/2024. FINDINGS: Pulmonary Parenchyma: No evidence of consolidation, collapse, or focal opacities. Currently noted right middle lung small nodular opacity; likely vessel end on. No evidence of pleural effusion or pleural thickening. Currently noted left basal pericardiac atelectatic plates. Heart and Mediastinum: Borderline cardiac size (cannot be completely commented upon in this view. Progression of the bilateral hilar vascular markings. Bony Thorax: The bony thorax appears intact without fractures or deformities. Soft Tissues: Currently noted elevated right diaphragmatic copula. IMPRESSION: 1. Currently noted Right middle lung small nodular opacity; likely vessel end on. 2. Currently noted left basal pericardiac atelectatic plates. 3. Borderline cardiac size (cannot be completely commented upon in this view. 4. Progression of the bilateral hilar vascular markings. 5. Currently noted elevated right diaphragmatic copula. Electronically signed by Moise Redman 12-05-2024 04:04 AM
[2024-12-05] MEDS: LEVALBUTEROL 1.25 MG/3 ML NEB NEB PRN (04:55)
[2024-12-05] MEDS: PANTOprazole 40 MG TAB PO SCH (05:54)
[2024-12-05 06:48] LABS: Hematocrit (blood only) 37.4 % (42.0-52.0); Hemoglobin 12.3 g/dl (14.0-18.0); Mean Corpuscular Hemoglobin 27.3 pg (25.0-34.0); Mean Corpuscular Hgb Conc 32.9 g/dL (32.0-36.0); Mean Corpuscular Volume 82.9 fL (80.0-100.0); Mean Platelet Volume 11.1 fL (9.4-12.4); Platelet Count 355 K/uL (130-400); RDW Coefficient of Variation 13.9 % (11.5-14.5); RDW Standard Deviation 42.1 fL (36.4-46.3); Red Blood Count 4.51 M/uL (4.70-6.10); White Blood Count 24.29 K/ul (4.8-10.8)
[2024-12-05 07:08] LABS: BUN Creatinine Ratio 27.3 (10-20); Creatinine Clr Calc Pharmacy 78.3 ml/min; Magnesium 1.7 mg/dl (1.7-2.4); Potassium 3.6 mmol/L (3.5-5.1)
[2024-12-05 07:10] LABS: Basophils # (auto) 0.05 K/uL (0.00-0.20); Basophils % (auto) 0.2 %; Immature Granulocytes # (auto) 0.21 K/uL (0.01-0.20); Immature Granulocytes % (auto) 0.9 %; Lymphocytes # (auto) 0.68 K/uL (1.20-3.40); Lymphocytes % (auto) 2.8 %; Monocytes # (auto) 1.94 K/uL (0.11-0.59); Neutrophils # (auto) 21.41 K/uL (1.40-6.50); Neutrophils % (auto) 88.1 %
--- NOTE | 2024-12-05 07:59 | Hospitalist Progress Note ---
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 He presented via EMS on 12/04 for SOB and AMS. Most of the history is obtained from patient's friend (Tammy), who the patient lives with, at bedside. She reports that the patient has had symptoms for the past 1.5 weeks, that have gradually worsened. Initially, he was having weakness and difficulty standing, which happens whenever he develops cold-like symptoms. He does have h/o stroke with residual left-sided deficits, and initially she thought it might be secondary to that. However, over the last 3 to 4 days, he has developed episodes of difficulty breathing, productive cough (clear sputum production), low-grade fever, and one episode of sweating, and bright red blood on the corner of his lips. #Influenza A Influenza A (+) on arrival Droplet isolation precautions Tamiflu 75 mg p.o. BID Supportive care Acetaminophen as needed for pain/fever Guaifenesin 1200 mg p.o. q12h Incentive spirometry, flutter valve PT/OT pending #Hypoxia Reported episode of hypoxia in the 70% range at home Patient is 95% on RA at time of admission Multifactorial, suspect mucous plugging, influenza A, and superimposed bacterial pneumonia Hypertonic 7% nebulizers BID Continuous pulse oximetry #Concomitant pneumonia Leukocytosis at 26.40 on arrival Procalcitonin WNL CXR revealed no acute findings MRSA nare negative Patient was covered with Zosyn due to risk factors, leukocytosis, and comorbidities on admission. Did have some shortness of breath and hypoxia overnight and continues to have an elevated but now downtrending leukocytosis. Will narrow to Unasyn with target Augmentin for discharge if continuing to do well. # Demand ischemia Troponin elevation of 279 up trended and peaked at 2112 on admission, downtrending thereafter. Patient did have some chest pain prior to admission which resolved and has not had recurrent chest pain during admission. Suspect that this is demand due to combination of flu, pneumonia, and hypoxia. EKG on admission reviewed. Suspected to have old lead reversal in last EKG but otherwise no acute changes. TTE with EF 55 to 60%, LV SF normal, no regional wall motion abnormalities, no significant valvular pathology #Altered mental status -resolved Head CT without acute finding Resolved prior to ED arrival; per family, at baseline Chronic stable issues: #Myoclonic disorder-depakote #Paroxysmal atrial fibrillationrivaroxaban #HLDatorvastatin #GERDomeprazole #Depressionsertraline #COPDHome inhalers #OSACPAP at bedtime Disposition: M/T DNR/DNI Heart healthy diet VTE PPx: On rivaroxaban Admission and Anticipated Discharge Date Admission Date: December 04, 2024 Subjective Seen at bedside reports he feels better but was still very short of breath this morning. Feels "okay "at the bedside. No questions or concerns although notes his will be back a little bit later today for an update. Denies fever chills or sweats. No chest pain overnight. Physical Exam Physical Exam: General: Somnolent but awakens easily. Oriented to name HEENT: Atraumatic, normocephalic. Vision and hearing grossly intact. Mumbles somewhat while speaking but when asked to speak loudly clears and there is no apparent dysarthria or aphasia Pulm: Diminished symmetrical chest rise. No increase in work of breathing. No respiratory distress. Cardiac: RRR, -mrg. Radial pulses intact and symmetrical. Abdominal: Nontender, nondistended, soft. BS present. Extremities: 1+ ankle edema Results & Data Results & Data Vital Signs (Past 12 Hours) Vital Signs Temp Pulse Pulse Resp BP Pulse Ox O2 Del Method 12/05/24 07:45 91 H 20 93 Room Air 12/05/24 07:00 102 H 12/05/24 04:56 99 H 38 H 95 BiPAP 12/05/24 03:09 36.5 C 100 H 20 122/75 91 CPAP 12/05/24 02:21 108 H 43 H 93 12/05/24 02:05 36.5 C 105 H 24 140/80 97 Room Air 12/05/24 01:58 110 H 30 H 90 Room Air 12/04/24 23:36 36.9 C 85 18 125/73 93 Room Air 12/04/24 22:13 92 H 12/04/24 20:49 37.3 C 94 H 18 140/76 93 Room Air PG Care Time/CCT Total # of Minutes Spent Total Time Spent with Patient: Total time spent is greater than 50% in coordination of care (as documented) at patient's floor/unit and/or counseling patient: Coding Level of Care Code 37826 SUB INP/OBS CARE 3/50MIN Diagnoses PAF (paroxysmal atrial fibrillation) I48.0 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
[2024-12-05] MEDS: SERTRALINE HCL 50 MG TABLET PO SCH (08:12)
[2024-12-05] MEDS: RIVAROXABAN 20 MG TAB PO SCH (08:12)
[2024-12-05] MEDS: DIVALPROEX EXTENDED RELEASE 500 MG TAB PO SCH (08:12)
[2024-12-05] MEDS: ATORVASTATIN 40 MG TAB PO SCH (08:13)
[2024-12-05] MEDS: FLUTICASONE FUROATE 100MCG 14 PUFFS/INHALER INH SCH (08:13)
[2024-12-05] MEDS: UMECLIDINIUM/VILANTEROL 62.5/25MCG 7 PUFFS/INHALER INH SCH (08:13)
[2024-12-05] MEDS: DOCUSATE SODIUM 100 MG CAP PO SCH (08:16)
[2024-12-05] MEDS: AMPICILLIN/SULBACTAM SOD 3,000 MG/100 ML BAG IV SCH (12:05)
[2024-12-06 06:57] LABS: Basophils # (auto) 0.03 K/uL (0.00-0.20); Basophils % (auto) 0.3 %; Eosinophils # (auto) 0.04 K/uL (0.00-0.50); Eosinophils % (auto) 0.4 %; Hematocrit (blood only) 33.2 % (42.0-52.0); Hemoglobin 10.7 g/dl (14.0-18.0); Immature Granulocytes # (auto) 0.07 K/uL (0.01-0.20); Immature Granulocytes % (auto) 0.6 %; Lymphocytes % (auto) 8.2 %; Mean Corpuscular Hemoglobin 26.7 pg (25.0-34.0); Mean Corpuscular Hgb Conc 32.2 g/dL (32.0-36.0); Mean Corpuscular Volume 82.8 fL (80.0-100.0); Mean Platelet Volume 10.8 fL (9.4-12.4); Monocytes % (auto) 13.6 %; Neutrophils # (auto) 8.45 K/uL (1.40-6.50); Neutrophils % (auto) 76.9 %; Platelet Count 274 K/uL (130-400); RDW Coefficient of Variation 14.1 % (11.5-14.5); RDW Standard Deviation 42.6 fL (36.4-46.3); Red Blood Count 4.01 M/uL (4.70-6.10); White Blood Count 10.99 K/ul (4.8-10.8)
[2024-12-06 07:13] LABS: BUN Creatinine Ratio 36.6 (10-20); Calcium 8.4 mg/dl (8.6-10.3); Creatinine Clr Calc Pharmacy 97.1 ml/min; Potassium 3.6 mmol/L (3.5-5.1)
--- NOTE | 2024-12-06 09:14 | Electrocardiogram Report ---
Test Reason : Blood Pressure : */* mmHG Vent. Rate : 96 BPM Atrial Rate : 96 BPM P-R Int : 214 ms QRS Dur : 144 ms QT Int : 400 ms P-R-T Axes : 27 -81 67 degrees QTcB Int : 505 ms Sinus rhythm with 1st degree A-V block with occasional Premature ventricular complexes and Premature atrial complexes Right bundle branch block Left anterior fascicular block Abnormal ECG When compared with ECG of 15-Apr-2024 21:28, Premature ventricular complexes are now Present Left anterior fascicular block is now Present QT has shortened Confirmed by Harvinder El ([id number] on 12/06/2024 9:13:26 AM Referred By: REFERRED SELF Confirmed By: Harvinder El
--- NOTE | 2024-12-06 11:48 | Hospitalist Progress Note ---
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 He presented via EMS on 12/04 for SOB and AMS. Most of the history is obtained from patient's friend (Tammy), who the patient lives with, at bedside. She reports that the patient has had symptoms for the past 1.5 weeks, that have gradually worsened. Initially, he was having weakness and difficulty standing, which happens whenever he develops cold-like symptoms. He does have h/o stroke with residual left-sided deficits, and initially she thought it might be secondary to that. However, over the last 3 to 4 days, he has developed episodes of difficulty breathing, productive cough (clear sputum production), low-grade fever, and one episode of sweating, and bright red blood on the corner of his lips. #Hypoxia Due to combination of suspected recurrent aspiration pneumonia and influenza A Reported episode of hypoxia in the 70% range at home Patient is 95% on RA at time of admission Multifactorial, suspect mucous plugging, influenza A, and superimposed bacterial pneumonia Hypertonic 7% nebulizers BID Continuous pulse oximetry #Influenza A Influenza A (+) on arrival Droplet isolation precautions Tamiflu 75 mg p.o. BID Supportive care Acetaminophen as needed for pain/fever Guaifenesin 1200 mg p.o. q12h Incentive spirometry, flutter valve PT/OT --> rec rehab. Placement pending CM following. Medically stable to progress to rehab when available. # pneumonia, suspect aspiration Leukocytosis at 26.40 on arrival Procalcitonin WNL CXR revealed no acute findings MRSA nare negative Patient was covered with Zosyn due to risk factors, leukocytosis, and comorbidities on admission. Did have some shortness of breath and hypoxia overnight and continues to have an elevated but now downtrending leukocytosis. narrowed to Unasyn and continues to improve. Treat for 7-day total course of antibiotics last day 12/10/2024 if no complications. WBC w/ rapid improvement --> 10.99 on 12/06 # Demand ischemia Troponin elevation of 279 up trended and peaked at 2 on admission, downtrending thereafter. Patient did have some chest pain prior to admission which resolved and has not had recurrent chest pain during admission. Suspect that this is demand due to combination of flu, pneumonia, and hypoxia. EKG on admission reviewed. Suspected to have old lead reversal in last EKG but otherwise no acute changes. TTE with EF 55 to 60%, LV SF normal, no regional wall motion abnormalities, no significant valvular pathology #Altered mental status -resolved Head CT without acute finding Resolved prior to ED arrival; per family, at baseline Chronic stable issues: #Myoclonic disorder-depakote. +muscle spasms and stiffness today. Would liek to trial a low dose of flexeril x1. #Paroxysmal atrial fibrillationrivaroxaban #HLDatorvastatin #GERDomeprazole #Depressionsertraline #COPDHome inhalers #OSACPAP at bedtime Disposition: M/T. Patient has been hemodynamically stable, with no evidence of recurrent ischemic symptoms or disease. [place] [facility] 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 Reports bothers him, have been there for several weeks Would like to try something for muscle stiffness/contracutres No other quesitons Physical Exam Physical Exam: General: Somnolent but awakens easily. Oriented to name HEENT: Atraumatic, normocephalic. Vision and hearing grossly intact. Answers questions appropriately, no aphasia Pulm: Diminished symmetrical chest rise. No increase in work of breathing. No respiratory distress. Cardiac: RRR, -mrg. Radial pulses intact and symmetrical. Abdominal: Nontender, nondistended, soft. BS present. Extremities: 1+ ankle edema. Resting in flexed position. Increased to passive knee flexion/extension bilat. No calf s. No calf pain. Results & Data Results & Data Vital Signs (Past 12 Hours) Vital Signs Temp Pulse Pulse Resp BP Pulse Ox O2 Del Method 12/06/24 08:07 Room Air 12/06/24 07:30 36.9 C 73 16 120/67 96 Nebulizer 12/06/24 07:22 87 18 92 Room Air 12/06/24 07:00 73 12/06/24 03:51 37.4 C 66 16 119/74 94 BiPAP 12/06/24 01:57 68 29 H 91 BiPAP 12/06/24 01:57 68 29 H 91 12/05/24 23:47 36.9 C 68 18 113/70 93 BiPAP FiO2 12/06/24 08:07 12/06/24 07:30 12/06/24 07:22 12/06/24 07:00 12/06/24 03:51 12/06/24 01:57 21 12/06/24 01:57 12/05/24 23:47 PG Care Time/CCT Total # of Minutes Spent Total Time Spent with Patient: Total time spent is greater than 50% in coordination of care (as documented) at patient's floor/unit and/or counseling patient: Coding Level of Care Code 74498 SUB INP/OBS CARE 350MIN Diagnoses PAF (paroxysmal atrial fibrillation) I48.0 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
[2024-12-06] MEDS: CYCLOBENZAPRINE HCL 5 MG TAB PO ONE (14:50)
[2024-12-07 06:25] LABS: Basophils # (auto) 0.03 K/uL (0.00-0.20); Basophils % (auto) 0.3 %; Eosinophils # (auto) 0.07 K/uL (0.00-0.50); Eosinophils % (auto) 0.7 %; Hematocrit (blood only) 33.4 % (42.0-52.0); Hemoglobin 10.6 g/dl (14.0-18.0); Immature Granulocytes # (auto) 0.05 K/uL (0.01-0.20); Immature Granulocytes % (auto) 0.5 %; Lymphocytes # (auto) 0.99 K/uL (1.20-3.40); Lymphocytes % (auto) 9.3 %; Mean Corpuscular Hemoglobin 26.6 pg (25.0-34.0); Mean Corpuscular Hgb Conc 31.7 g/dL (32.0-36.0); Mean Corpuscular Volume 83.9 fL (80.0-100.0); Mean Platelet Volume 10.8 fL (9.4-12.4); Monocytes # (auto) 0.95 K/uL (0.11-0.59); Neutrophils # (auto) 8.51 K/uL (1.40-6.50); Neutrophils % (auto) 80.2 %; Platelet Count 280 K/uL (130-400); RDW Coefficient of Variation 14.1 % (11.5-14.5); RDW Standard Deviation 43.2 fL (36.4-46.3); Red Blood Count 3.98 M/uL (4.70-6.10)
[2024-12-07 06:37] LABS: BUN Creatinine Ratio 31.1 (10-20); Calcium 8.4 mg/dl (8.6-10.3); Creatinine Clr Calc Pharmacy 93.1 ml/min; Potassium 3.9 mmol/L (3.5-5.1)
--- NOTE | 2024-12-07 14:10 | Hospitalist Progress Note ---
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 He presented via EMS on 12/04 for SOB and AMS. Most of the history is obtained from patient's friend (Tammy), who the patient lives with, at bedside. She reports that the patient has had symptoms for the past 1.5 weeks, that have gradually worsened. Initially, he was having weakness and difficulty standing, which happens whenever he develops cold-like symptoms. He does have h/o stroke with residual left-sided deficits, and initially she thought it might be secondary to that. However, over the last 3 to 4 days, he has developed episodes of difficulty breathing, productive cough (clear sputum production), low-grade fever, and one episode of sweating, and bright red blood on the corner of his lips. #Hypoxia Due to combination of suspected recurrent aspiration pneumonia and influenza A Reported episode of hypoxia in the 70% range at home Patient is 95% on RA at time of admission Multifactorial, suspect mucous plugging, influenza A, and superimposed bacterial pneumonia Hypertonic 7% nebulizers BID Continuous pulse oximetry #Influenza A Influenza A (+) on arrival Droplet isolation precautions Tamiflu 75 mg p.o. BID Supportive care Acetaminophen as needed for pain/fever Guaifenesin 1200 mg p.o. q12h Incentive spirometry, flutter valve PT/OT --> rec rehab. Placement pending CM following. Medically stable to progress to rehab when available. # pneumonia, suspect aspiration Leukocytosis at 26.40 on arrival Procalcitonin WNL CXR revealed no acute findings MRSA nare negative Patient was covered with Zosyn due to risk factors, leukocytosis, and comorbidities on admission. Did have some shortness of breath and hypoxia overnight and continues to have an elevated but now downtrending leukocytosis. narrowed to Unasyn and continues to improve. Treat for 7-day total course of antibiotics last day 12/10/2024 if no complications. Increased LE Tone/Spasms - w/ history of CVA - trial 2.5mg HS baclofen resolved symptoms and pt, pt appreciative of this. Counseled on risks of sedation/confusion with higher doses, but reasonable to continue 2.5mg qHS given significant clinical benefit # Demand ischemia Troponin elevation of 279 up trended and peaked at 2111 on admission, downtrending thereafter. Patient did have some chest pain prior to admission which resolved and has not had recurrent chest pain during admission. Suspect that this is demand due to combination of flu, pneumonia, and hypoxia. EKG on admission reviewed. Suspected to have old lead reversal in last EKG but otherwise no acute changes. TTE with EF 55 to 60%, LV SF normal, no regional wall motion abnormalities, no significant valvular pathology #Altered mental status -resolved Head CT without acute finding Resolved prior to ED arrival; per family, at baseline Chronic stable issues: #Myoclonic disorder-depakote. +muscle spasms and stiffness today. Would liek to trial a low dose of flexeril x1. #Paroxysmal atrial fibrillationrivaroxaban #HLDatorvastatin #GERDomeprazole #Depressionsertraline #COPDHome inhalers #OSACPAP at bedtime Disposition: M/T. Patient has been hemodynamically stable, with no evidence of recurrent ischemic symptoms or disease. Moved [place] [facility] [place] DNR/DNI Heart healthy diet VTE PPx: On rivaroxaban Admission and Anticipated Discharge Date Admission Date: December 04, 2024 Corinne Choudhury is seen at the bedside with his caregiver present Feels well today No cough. no fevers Leg cramps/spasms resolved completely after baclofen. Pt very pleased with this and notes it has been a troublesome issue for him No other ?s or concerns Physical Exam Physical Exam: General: Somnolent but awakens easily. Oriented to name. Somewha tincreased speech latency, but answers questions appropriately. Sitting up in chair on revisit, laying in bed at initial visit HEENT: Atraumatic, normocephalic. Vision and hearing grossly intact. Answers questions appropriately, no aphasia Pulm: Diminished symmetrical chest rise. No increase in work of breathing. No respiratory distress. Cardiac: RRR, -mrg. Radial pulses intact and symmetrical. Abdominal: Nontender, nondistended, soft. BS present. Extremities: 1+ ankle edema. LE tone greatly improved/less rigid today Results & Data Results & Data Vital Signs (Past 12 Hours) Vital Signs Temp Pulse Pulse Resp BP Pulse Ox O2 Del Method 12/07/24 13:30 88 16 92 Room Air 12/07/24 10:52 36.6 C 74 20 134/69 94 Room Air 12/07/24 08:00 36.4 C L 74 16 120/72 93 Room Air 12/07/24 07:23 74 16 94 Room Air 12/07/24 02:47 68 26 H 93 PG Care Time/CCT Total # of Minutes Spent Total Time Spent with Patient: Total time spent is greater than 50% in coordination of care (as documented) at patient's floor/unit and/or counseling patient: Coding Level of Care Code 24661 SUB INP/OBS CARE 235MIN Diagnoses PAF (paroxysmal atrial fibrillation) I48.0 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
[2024-12-08 07:01] LABS: Basophils # (auto) 0.02 K/uL (0.00-0.20); Basophils % (auto) 0.2 %; Eosinophils # (auto) 0.04 K/uL (0.00-0.50); Eosinophils % (auto) 0.4 %; Hematocrit (blood only) 33.7 % (42.0-52.0); Immature Granulocytes # (auto) 0.04 K/uL (0.01-0.20); Immature Granulocytes % (auto) 0.4 %; Lymphocytes # (auto) 1.11 K/uL (1.20-3.40); Mean Corpuscular Hemoglobin 27.1 pg (25.0-34.0); Mean Corpuscular Hgb Conc 32.6 g/dL (32.0-36.0); Mean Platelet Volume 10.6 fL (9.4-12.4); Monocytes # (auto) 0.77 K/uL (0.11-0.59); Neutrophils # (auto) 9.07 K/uL (1.40-6.50); Platelet Count 284 K/uL (130-400); RDW Coefficient of Variation 13.9 % (11.5-14.5); RDW Standard Deviation 42.1 fL (36.4-46.3); Red Blood Count 4.06 M/uL (4.70-6.10); White Blood Count 11.05 K/ul (4.8-10.8)
[2024-12-08 07:13] LABS: BUN Creatinine Ratio 30.7 (10-20); Calcium 8.3 mg/dl (8.6-10.3); Creatinine Clr Calc Pharmacy 91.9 ml/min; Potassium 3.6 mmol/L (3.5-5.1)
[2024-12-08 07:43] VITALS: BP 134/78; TEMP 97.7
[2024-12-08] MEDS: ACETAMINOPHEN 325 MG TAB PO PRN (08:26)
[2024-12-08 12:54] VITALS: PULSE 67; RESP 16; O2SAT 95
--- NOTE | 2024-12-08 13:29 | Discharge Summary ---
Discharge Summary Date of Service December 08, 2024 Principal Dx & Hospital Course #1 = Principal Diagnosis (1) PAF (paroxysmal atrial fibrillation): See Plan below for details on #1. (2) 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: See Plan below for details on #2. 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 Chris Stewart), Factor VIII inhibitor disorder, COPD not on home O2 or home steroids, and HEYDI on nocturnal CPAP. Patient presented to [facility] ER on 12/04/2024 via EMS with complaints of SOB and AMS. Most of the history was obtained from patient's friend (Ms. Tammy Hernandez, ), who the patient lives with, at bedside. Ms. Hernandez reported that the patient had symptoms for the past 1.5 weeks, and which gradually worsened. Initially, patient demonstrated weakness and difficulty standing, which happens whenever he develops cold-like symptoms. Given the patient's past medical history of CVA with residual left-sided deficits, Ms. Hernandez initially thought it might be secondary to that. However, over the following 3 to 4 days, patient developed episodes of difficulty breathing, productive cough (clear sputum production), low-grade fever, and one episode of sweating, and bright red blood on the corner of his lips. Patient was subsequently admitted to the inpatient hospitalist service @ [facility] on 12/04/2024 with the following diagnoses: 1. Acute hypoxic respiratory failure, due to acute influenza A pneumonia and/or recurrent aspiration pneumonia. 2. Acute toxic metabolic encephalopathy, due to acute influenza A pneumonia. 3. Acute type II NSTEMI with troponin-I #1 279.9 pg/mL (12/04/2024, 9:20am), troponin-I #2 2112.9 pg/mL (12/04/2024, 5:29pm), troponin-I #3 1807.5 pg/mL (12/04/2024, 11:36pm), and troponin-I #4 1689.0 pg/mL (12/04/2024, time ?), due to demand ischemia due to (a) acute hypoxic respiratory failure, due to acute influenza A pneumonia and/or recurrent aspiration pneumonia, and to (b) paroxysmal AFIB with RVR with HR 114 bpm (12/04/2024, 10:30am). The following medical issues were addressed while the patient remained in [facility] from 12/04/2024 to 12/08/2024: #Acute hypoxic respiratory failure, due to acute influenza A pneumonia and/or recurrent aspiration pneumonia: Due to combination of suspected recurrent aspiration pneumonia and influenza A Reported episode of hypoxia in the 70% range at home Patient is 95% on RA at time of admission Multifactorial, suspect mucous plugging, influenza A, and superimposed bacterial pneumonia Hypertonic 7% nebulizers BID Continuous pulse oximetry #Acute influenza A pneumonia Influenza A (+) on arrival Droplet isolation precautions Tamiflu 75 mg p.o. BID Supportive care Acetaminophen as needed for pain/fever Guaifenesin 1200 mg p.o. q12h Incentive spirometry, flutter valve PT/OT --> rec rehab. Placement pending CM following. Medically stable to progress to rehab when available. # Recurrent aspiration pneumonia. Leukocytosis with admission WBC 26.40 (12/04/2024, 9:20am), resolving well with discharge WBC 11.05 (12/08/2024, 6:16am). Procalcitonin negative/normal at 0.25 ng/mL (12/04/2024, 9:20am). CXR revealed no infiltrate, consolidation (12/04/2024, 9:39am). MRSA nares negative (12/04/2024, 10:51am). Patient received zosyn 4.5g IV x 2 doses (12/04/2024, 10:00am, 4:00pm), followed by ampicillin 3g IV q6 x 13 doses (12/05/2024, 12:00pm - 12/08/2024, 11:48am) d ue to risk factors, leukocytosis, and comorbidities on admission. Patient feels well and denies fever, chills, diaphoresis, cough, wheeze, sore throat, hemoptysis, chest pains, palpitations, pleurisy, nausea, vomiting, or diarrhea on discharge date 12/08/2024. Hence, patient will not continue empiric antibiotics on hospital discharge to [facility] on 12/08/2024. Increased LE Tone/Spasms - w/ history of non-hemorrhagic, ischemic CVA - patient received a trial of baclofen 2.5mg PO qhs, while in [facility], and which resolved symptoms. Subsequently, patient received counselling on risks of sedation/confusion with higher doses. Subsequently, patient received baclofen 2.5mg qHS given significant clinical benefit while in [facility], but patient will not continue this medication on hospital discharge to [facility] on 12/08/2024. # Acute type II NSTEMI, due to demand ischemia, due to (a) acute hypoxic respiratory failure, due to acute influenza A pneumonia and/or recurrent aspiration pneumonia, and to (b) paroxysmal AFIB with RVR with HR 114 bpm (12/04/2024, 10:30am). cf., troponin-I #1 279.9 pg/mL (12/04/2024, 9:20am), cf., troponin-I #2 2112.9 pg/mL (12/04/2024, 5:29pm), cf., troponin-I #3 1807.5 pg/mL (12/04/2024, 11:36pm), cf., troponin-I #4 1689.0 pg/mL (12/04/2024, time ?), due to demand ischemia due to #1 and to paroxysmal AFIB with RVR with HR 114 bpm (12/04/2024, 10:30am). Patient did have some chest pain prior to admission which resolved and has not had recurrent chest pain during admission. Suspect that this is demand due to combination of flu, pneumonia, and hypoxia. EKG on admission reviewed. Suspected to have old lead reversal in last EKG but otherwise no acute changes. TTE with EF 55 to 60%, LV SF normal, no regional wall motion abnormalities, no significant valvular pathology. Hence, I opted to observe this laboratory anomaly without further evaluation or intervention while patient remained in [facility] on discharge date 12/08/2024. #Acute toxic metabolic encephalopathy. Head CT without acute finding Resolved prior to ED arrival; per family, at baseline Chronic stable issues: #Myoclonic disorder-depakote. +muscle spasms and stiffness today. Would liek to trial a low dose of flexeril x1. #Paroxysmal atrial fibrillationrivaroxaban #HLDatorvastatin #GERDomeprazole #Depressionsertraline #COPDHome inhalers #OSACPAP at bedtime Disposition: M/T. Patient remains hemodynamically stable, with no evidence of recurrent ischemic symptoms or disease. Patient remains physically too deconditioned to be discharged back to his home, and hence, patient is being discharged to [facility] for short-term rehab today, 12/08/2024. DNR/DNI Heart healthy diet VTE PPx: On rivaroxaban Discharge time, 35 minutes. Of this time period, 18 minutes were spent in coordinating patient's discharge. Admission HPI Per Admitting Provider Kei is a 79-year-old male with PMHx of CVA with residual left-sided deficits, paroxysmal atrial fibrillation (on rivaroxaban), CAD s/p stented coronary artery, factor VIII inhibitor disorder, COPD, and HEYDI. He presented via EMS on 12/04 for SOB and AMS. Most of the history is obtained from patient's friend (Tammy), who the patient lives with, at bedside. She reports that the patient has had symptoms for the past 1.5 weeks, that have gradually worsened. Initially, he was having weakness and difficulty standing, which is, whenever he develops colds. He does have history of a stroke with residual left-sided deficits. However, over the last 3 to 4 days, he has developed episodes of difficulty breathing, productive cough (clear sputum production), and had an episode of sweating, and bright red blood on his lip. Tammy reports that the patient became hypoxic at 0730 this morning with SpO2 in the 70-79% range on home pulse ox. On EMS arrival, the patient reportedly did exhibit labored breathing. There was also some concern for confusion/altered mental status prior to ED arrival, but this has resolved (per family), and patient is currently at his cognitive baseline. Patient denies any SOB at rest or with exertion at this time. Patient's friend reports that he did have a low-grade fever around 100 F 4 days ago, but took Tylenol, and this resolved. He does take Tylenol on a daily basis for his arthritis. Additionally, patient's friend helps manage his medications at home. He took all his regular morning medicines today, including his Xarelto which he takes daily with breakfast. His only recent change in medications was that he was switched to Depakote for his history of myoclonus in the setting of stroke. Patient does not use up on oxygen at baseline. He does use a CPAP at night. He does not have prior history of [place], but does have a history of cardiac stent; not currently on aspirin and Plavix (?Due to history of lupus anticoagulant) but currently takes Xarelto. Patient's vitals are stable at time of admission; SpO2 95% on RA ED course: NSS 1000 mg IV Zosyn 4.5 g IV Tamiflu 75 mg p.o. ROS: Patient endorses low-grade fever at home, hypoxia, productive cough (clear sputum), coughing so bad at times that he "projectile vomits" mucus, lightheadedness with standing, generalized fatigue, and difficulty walking. Patient denies chest pain, pleuritic CP, SOB at rest or with exertion (at present), chest palpitations, abdominal pain, nausea, diarrhea, or blood in the urine or stool. Discharge Exam General: comfortable, coherent, cooperative. Wide awake and alert. Not confused, lethargic, or obtunded. Patient speaks in complete, fluent, and articulate sentences without pause, interruption, cough, or wheeze. HEENT: NC/AT. EOMI, PERRL. No nystagmus, gaze paresis, anisocoria, miosis, mydriasis, hyphema, chemosis, scleral icterus, conjunctivitis, or pterygium. No otorrhea, no rhinorrhea. No pharyngeal discharge or erythema. Neck: Supple, no stridor, bruit, goiter, or hepatojugular reflux. Jugular venous pressure is estimated to be 8 cm above the sternal angle of Suleiman, which is typically 5 cm above the level of the right atrium. Hence, there is no jugular venous distention noted on discharge exam 12/08/2024. Lymphatics: No pre-post auricular, anterior/posterior cervical, supraclavicular/infraclavicular, axillary, epitrochlear, or inguinal adenopathy. Chest: Symmetric rise and fall with respirations. Non-tender to palpation. Heart: RRR, S1 and S2 noted. No S3 or S4 summation gallop noted. No tripartite friction rub. Grade II/ early systolic murmur @ LLSB without radiation to the carotids, axilla, or back, and which remains invariant in regards to the respiratory cycle. Lungs: Clear to auscultation and percussion. No audible expiratory wheeze, egophony, pectoriloquy, increase in tactile fremitus, or flatness/dullness to percussion at the bases. Abdomen: Soft, non-tender, non-distended. No rebound, guarding, Kaplan's sign, or organomegaly. Bowel sounds auscultated in all 4 quadrants. Extremities: No clubbing, cyanosis, or edema. 2+ pedal pulses bilaterally. Skin: No decubitus ulcer, exanthem, or enanthem. Neurology: Alert and oriented in regards to person, place, time, and situation. DTR+ and symmetric. 5/5 motor strength in all 4 extremities, both proximally and distally. No myoclonus, tremors, or tics. Urology: No jones catheter. No urethral discharge. Psychiatry: Appropriate affect. Smiles occasionally. No homicidal/suicidal ideation. Discharge Plan Discharge Items Patient Disposition: Transfer Inpatient Rehab Fac Reason For Visit: INFLUENZA A, HYPOXIA Discharge Diagnosis: Influenza A,Aspiration pneumonia Condition on Discharge: Fair Activity: As commented below Non-emergency contact: Primary Care Provider Call non-emergency contact if: you have any medication questions and your symptoms worsen Follow-up/Referrals: Lita Najera DO [Primary Care Provider] - Diet: Heart Healthy Addtl Attending Provider Instructions: You are seen in the hospital for hypoxic respiratory failure due to accommodation of influenza A and suspected aspiration pneumonia. You were treated with Tamiflu which helps treat influenza A. Please continue to take Tamiflu 75 mg for 3 additional days to complete a 5-day course of treatment. Unit aspiration events multiple times in the past, and were suspected to have additional aspiration pneumonia which required antibiotic treatment during admission. You have been discharged on an antibiotic, Augmentin. Please take Augmentin 875-125 mg by mouth twice daily for 3 additional days to complete a course of treatment. You showed signs of heart stress during admission. Is likely that your elevated heart markers were due to stress from low oxygen levels, the flu, and pneumonia. You did not show signs of a heart attack during admission, and an ultrasound of your heart showed normal pumping function. If you develop any new or worsening symptoms including fever, chills, sweats, chest pain, chest pressure, difficulty breathing, uncontrolled nausea/vomiting, rash, wheezing, passing out or nearly passing out, bleeding, black/bloody bowel movements, or other new or concerning symptoms please call your primary care physician, or call 911 for re-evaluation in the emergency department if you are very concerned. Pending Studies at Discharge: No Stand-Alone Forms: [employer] Skilled Items Patient informed of condition?: Yes DNR: Yes Discharge Level of Care: Acute rehab Communicable Disease: Yes Discharge Prognosis: Stable Lines: None Urinary Catheter: No Medications and DC Order Prescriptions: Continued (DME) CPAP Supplies Mis See Rx Instructions .Route Qty: 1 0RF Rx Instructions: Fitting for new cpap mask (DME) CPAP Machine Misc See Rx Instructions .Route Qty: 1 0RF Rx Instructions: Auto Cpap titrating 4-15 cm pressure fexofenadine [Shilpi Allergy] 1 tab PO DAILY PRN (Reason: Allergy Symptoms) Patient Comments: CONFIRMED W/ PT'S S/O THAT HE TAKES NEEDED 07/19/22 Rx Instructions: otc unable to verify As directed turmeric root extract 500 mg tablet 500 mg PO DAILY Qty: 30 0RF Rx Instructions: otc ipratropium-albuterol 0.5 mg-3 mg(2.5 mg base)/3 mL solution for nebulization 3 ml INHALATION Q4H PRN (Reason: Wheezing) Qty: 360 5RF Rx Instructions: no fill history available (DME) miscellaneous medical supply Package See Rx Instructions .Route Qty: 1 0RF Rx Instructions: oral suction device divalproex [Depakote ER] 500 mg tablet extended release 24 hr 500 mg PO DAILY 90 Days Qty: 90 1RF Trelegy Ellipta 100-62.5-25 mcg blister with device 1 inh inhalation DAILY Qty: 3 3RF (DME) WHEELED WALKER See Rx Instructions .Route .MEDSUPPLY Qty: 1 0RF Rx Instructions: As directed to aid mobility and promote patient safety. WHEELED WALKER WITH WHEELS IN FRONT. lidocaine 5 % adhesive patch,medicated 1 patch topical Q24H Qty: 30 5RF Rx Instructions: leave on most painful area for up to 12 hrs omeprazole 40 mg capsule,delayed release(DR/EC) 40 mg PO DAILYBB Qty: 90 1RF Xarelto 20 mg tablet 20 mg PO QAM Qty: 90 1RF atorvastatin 40 mg tablet 40 mg PO .every other day Qty: 90 1RF (DME) Miscellaneous Pulmonary Supply Misc See Rx Instructions .Route Qty: 1 0RF Rx Instructions: CoughAssist device. Start with pressures of 10 cm H2O on inhalation and -10 on exhalation. Increase as tolerated. guaifenesin [Mucinex] 600 mg tablet extended release 12hr 600 mg PO UD Rx Instructions: 600 mg po bid. otc unable to verify (DME) Miscellaneous Pulmonary Supply Misc See Rx Instructions .Route Qty: 1 0RF Rx Instructions: cough assist (Cofflator) (DME) Vibration Vest Misc See Rx Instructions .Route Qty: 1 0RF Rx Instructions: As directed resveratrol 50 mg capsule 50 mg PO QAM Rx Instructions: otc unable to verify (DME) Auto Titrating CPAP Misc See Rx Instructions .Route Qty: 1 0RF Rx Instructions: As directed polyethylene glycol 3350 [Miralax] 17 gram/dose powder 17 g PO UD Rx Instructions: 17 g po daily. otc unable to verify docusate sodium [Colace] 100 mg capsule 100 mg PO UD Rx Instructions: 100 mg po daily. otc unable to verify fish,bora,flax oils-om3,6,9no1 [Dickinson 3-6-9] 1 cap PO DIRECTED Rx Instructions: otc unable to verify acetaminophen [Tylenol Arthritis Pain] 650 mg Tablet Extended Release 650 mg PO UD PRN (Reason: Fever) Rx Instructions: 650 mg po q8h prn. otc unable to verify coQ10 (ubiquinol) 200 mg Capsule 200 mg PO UD Rx Instructions: 200 mg po qam. otc unable to verify cholecalciferol (vitamin D3) 125 mcg (5,000 unit) capsule 125 mcg PO UD Rx Instructions: 125 mcg po qam. otc unable to verify (DME) miscellaneous medical supply Misc VAGINAL Rx Instructions: Cough assist device -BID sertraline 100 mg tablet 150 mg PO DAILY Rx Instructions: TAKE 1 & 1/2 TABLETS BY MOUTH EVERY DAY tramadol 50 mg tablet 50 mg PO UD PRN (Reason: Pain) Rx Instructions: 50 mg po q6h prn. no fill history available unable to verify albuterol sulfate 90 mcg/actuation HFA aerosol inhaler 2 puff INHALATION UD PRN (Reason: Shortness Of Breath) Rx Instructions: 2 puff inhalation q4h prn. No fill history available melatonin 10 mg tablet 10 mg PO UD PRN (Reason: sleep) Rx Instructions: 10 mg po hs prn. otc unable to verify Discharge Orders: Discharge Order (Routine); Ordered 12/08/24 Ordered By: Kb Melgar Discharge Order- CHF (Routine); Ordered 12/08/24 Ordered By: Kb Melgar Admission Data Admit Date/Time: 12/04/24 12:15 Attending Provider: Kb Melgar Admit Provider: Sanya Alvarez Primary Care Provider: Lita Najera Other Providers: Sanya Alvarez; [facility] Stay Data Consultations 12/04/24 10:42 ED Decision to Admit Stat Diagnostic Imagining Performed 12/04/24 09:38 CT head/brain wo con Stat Pending Results Patient Have Any Pending Studies at Discharge: No Discharge Instructions Given to Patient (Per Discharging Provider) You are seen in the hospital for hypoxic respiratory failure due to accommodation of influenza A and suspected aspiration pneumonia. You were treated with Tamiflu which helps treat influenza A. Please continue to take Tamiflu 75 mg for 3 additional days to complete a 5-day course of treatment. Unit aspiration events multiple times in the past, and were suspected to have additional aspiration pneumonia which required antibiotic treatment during admission. You have been discharged on an antibiotic, Augmentin. Please take Augmentin 875-125 mg by mouth twice daily for 3 additional days to complete a course of treatment. You showed signs of heart stress during admission. Is likely that your elevated heart markers were due to stress from low oxygen levels, the flu, and pneumonia. You did not show signs of a heart attack during admission, and an ultrasound of your heart showed normal pumping function. If you develop any new or worsening symptoms including fever, chills, sweats, chest pain, chest pressure, difficulty breathing, uncontrolled nausea/vomiting, rash, wheezing, passing out or nearly passing out, bleeding, black/bloody bowel movements, or other new or concerning symptoms please call your primary care physician, or call 911 for re-evaluation in the emergency department if you are very concerned. Total Time Total Time Spent Total Time Spent (In Minutes): 35 minutes Coding Level of Care Code 35705 INP/OBS DISCH >30 MIN Diagnoses PAF (paroxysmal atrial fibrillation) I48.0 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
== END 2024-12-08 14:29 | DRG 193 ==
LOC: ED 09:11 → 2W 12:15 → SUATTDRO 12:15 → 2W 14:53 → 3E 12-08 04:06

== ENCOUNTER 2025-05-21 03:39 | Inpatient (IN) ==
[2025-05-21 05:11] LABS: Base Excess VBG 2.8 mEq/L; HCO3 VBG 32 mmol/L; Oxygen Saturation VBG < 60.0 %; PCO2 VBG 67 mmHg (38-50); PO2 VBG < 20 mmHg; pH VBG 7.28 (7.36-7.41)
[2025-05-21 05:14] LABS: Hematocrit (blood only) 39.8 % (42.0-52.0); Hemoglobin 12.7 g/dl (14.0-18.0); Immature Granulocytes # (auto) 0.03 K/uL (0.01-0.20); Immature Granulocytes % (auto) 0.3 %; Mean Corpuscular Hemoglobin 27.5 pg (25.0-34.0); Mean Corpuscular Volume 86.3 fL (80.0-100.0); Platelet Count 217 K/uL (130-400); RDW Standard Deviation 46.3 fL (36.4-46.3); Red Blood Count 4.61 M/uL (4.70-6.10); White Blood Count 9.06 K/ul (4.8-10.8)
[2025-05-21 05:22] LABS: Alanine Aminotransferase 51.0 U/L (7-52); Albumin Globulin Ratio 1.4 (0.9-2); Alkaline Phosphatase 82.0 U/L (34-104); Anion Gap 6.0 (3-11); Bilirubin,Total 0.4 mg/dl (0.2-1.0); Blood Urea Nitrogen 18.0 mg/dl (6-23); Calcium 8.4 mg/dl (8.6-10.3); Carbon Dioxide 30.0 mmol/L (21-32); Chloride 107.0 mmol/L (98-107); Creatinine Clr Calc Pharmacy 61.4 ml/min; Globulin 2.6 gm/dl (2.5-4.0); Glucose 108.0 mg/dl (70-99(Fasting)); Lipase 13.0 U/L (11-82); Magnesium 1.7 mg/dl (1.7-2.4); Potassium 3.7 mmol/L (3.5-5.1); Sodium 143.0 mmol/L (136-145); Total Protein 6.3 gm/dl (6.0-8.3)
[2025-05-21 05:44] LABS: INR 1.1 (0.9-1.1); Prothrombin Time 12.3 Seconds (9.0-12.0)
--- NOTE | 2025-05-21 06:10 | XRay Report ---
EXAM: XR chest 1V portable CLINICAL HISTORY: sob TECHNIQUE: Radiograph of chest was acquired. COMPARISON: 04/19/2025 05:25:00 IMCU SPECIALIST FINDINGS: The lungs are clear and well-expanded with no pulmonary infiltrate or pleural effusion. The cardiomediastinal silhouette is within normal limits. No acute osseous abnormality. IMPRESSION: 1. No acute cardiopulmonary disease. 2. No interval changes. Electronically signed by Elvin Smart 05-21-2025 06:09 AM
[2025-05-21 06:15] LABS: Chlamydia pneumoniae PCR Not Detected (NotDetected); Coronavirus 229E PCR Not Detected (NotDetected); Coronavirus CoV-2 (COVID19)PCR Not Detected (NotDetected); Coronavirus HKU1 PCR Not Detected (NotDetected); Coronavirus NL63 PCR Not Detected (NotDetected); Coronavirus OC43PCR Not Detected (NotDetected); Human Metapneumovirus PCR Not Detected (NotDetected); Parainfluenza Virus 1 PCR Not Detected (NotDetected); Parainfluenza Virus 2 PCR Not Detected (NotDetected); Parainfluenza Virus 3 PCR Not Detected (NotDetected); Parainfluenza Virus 4 PCR Not Detected (NotDetected); Respiratory Syncytial VirusPCR Not Detected (NotDetected); Rhinovirus/Enterovirus PCR Not Detected (NotDetected)
[2025-05-21] MEDS: ALBUT/IPRATROP 3MG/0.5MG NEB 3 ML VIAL NEB STA ×2 (06:16→07:47)
--- NOTE | 2025-05-21 07:31 | Emergency Department Note ---
Impression & Plan Dyspnea, Acute exacerbation of chronic obstructive pulmonary disease (COPD), Elevated troponin, Acute hypoxemic respiratory failure ED Provider Note ED Provider Note NAME: RADHA CANCINO AGE:79 SEX: Male : 1945 ARRIVES VIA: EMS INFORMANT: Patient ED PROVIDER(s): Petty Marie DO CHIEF COMPLAINT: shortness of breath HPI: This is a 79-year-old male presents emergency department due to concern for increased shortness of breath. Patient states symptoms feel similar to when he was recently admitted. Patient states he felt short of breath when he woke up around 2 in the morning. His family assisted him in starting a breathing treatment but they were concerned for his work of breathing so 911 was contacted. EMS reported on arrival family stated that his oxygen saturations have been in the 60s but was already improved to the low 90s with a nebulizer treatment by the time they arrived. Patient denies fevers or chills, or other URI symptoms. He denies any recent change in cough or sputum production. He denies any accompanying chest pain. He states his breathing is improved at this time and he feels the oxygen helps. He states he does not wear oxygen at home. Patient denies any sick contacts or other changes to his medications. He denies any recent leg swelling. He states he does have COPD and used to smoke. PAST MEDICAL HISTORY:See Below PAST SURGICAL HISTORY:See Below FAMILY HISTORY:See Below SOCIAL HISTORY:See Below HOME MEDICATIONS:See Below ALLERGIES:See Below VITALS:See Below PHYSICAL EXAMINATION: GENERAL: alert, well appearing, well nourished, no distress, non-toxic EYE EXAM: normal conjunctiva, PERRL and EOM's grossly intact OROPHARYNX: no exudate, no erythema, lips, buccal mucosa, and tongue normal and mucous membranes are moist NECK: supple, no nuchal rigidity, no adenopathy, non-tender LUNGS: Decreased bilaterally to auscultation. Normal chest wall mechanics, no r/r, faint end expiratory wheeze bilaterally, tachypnea HEART: no murmurs, S1 normal and S2 normal ABDOMEN: abdomen soft, non-tender, normo-active bowel sounds, no masses, no rebound or guarding. SKIN: no rashes, petechiae, orbruising UPPER EXTREMITIES: upper extremities are grossly normal. FROM, nml pulses b/l. LOWER EXTREMITIES: No pitting edema. FROM, nml pulses b/l. NEURO EXAM: Normal sensorium, cranial nerves II-XII grossly intact, normal speech, no facial droop,mild left sided weakness from prior CVA. Gross sensation intact. No ataxia. Vital Signs: reviewed and remarkable Differential Diagnosis: pneumonia, bronchitis, COPD/Asthma exacerbation, pneumothorax, pulmonary embolism, congestive heart failure, acute coronary syndrome, as well as others were considered MEDICAL DECISION MAKING: THis is a 79 yo male who presents to the ER with concern for dyspnea and hypoxia reported to EMS at home by family. He was improved on oxygen on arrival here. Other VS stable. Labs drawn and sent, IV established, EKG and CXR performed and interpreted at bedside, and patient placed on telemetry. Nasal swab sent additionally after review of EMR showed recent hospitalization for acute resp failure due to COPD exacerbation from viral URI. Swab negative. CXR without acute findings. Patient noted to have an elevated troponin. He was given duoneb here and reported improvement. A second duoneb and steroids given while awaiting repeat troponin. Repeat troponin markedly more elevated. I suspected initial troponin due to increased demand during his hypoxia and dyspnea, however patient with risk factors for CAD. Patient stated he is taking his Xarelto daily. I feel PE less likely as a result. He continued to deny chest pain and EKG without acute changes. He was noted to be hypercarbic. Given no fever, leukocytosis, or other reported changes to suggest pulmonary infection, will defer use of antibiotic to admitting team. Patient with some persistent tachypnea and I did speak with RT and patient placed on HFNC with improvement. I discussed all results with the patient who verbalized understanding. Case discussed with the hospitalist team for additional evaluation and mgmt. Consultation(s): 0803: Discussed with [facility] hospitalist team, for additional evaluation and mgmt. ER Treatment Provided: See below Diagnostics Interpreted By Me: -ECG: Normal sinus at 95, first-degree AV block, right bundle branch block, nonspecific ST/T wave changes; no change from April 19, 2025 -Cardiac Monitoring: An order was placed for continuous cardiac monitoring. The monitor shows a rate of 82 with normal sinus rhythm. -Laboratory studies: As stated above and show below. -Imaging studies: X-ray Chest: A single view study of the chest was reviewed and was negative for cardiomegaly, focal infiltrate, effusion, pulmonary edema, or wide mediastinum. Triage Nursing Note Reviewed Prior/Outside Records Reviewed -discharge summary from April 2025 reviewed Critical Care: Critical care of 39 min performed to assess and manage high likelihood of life-threatening dyspnea and hypoxia, involving labs and imaging performed with assessment to evaluate dyspnea and hypoxia diagnosis with frequent reassessment. This time includes bedside time, treatment discussions with patient/family/consultants, documentation time and excludes procedure time. Past Med/Surg History Problem List (Updated 05/22/25 @ 21:20 by Petty Marie, ) Acute hypoxemic respiratory failure (Acute) Acute hypoxic respiratory failure Elevated troponin (Acute) Acute exacerbation of chronic obstructive pulmonary disease (COPD) (Acute) Dyspnea (Acute) Obstructive lung disease Excessive oral secretions Aspiration into airway H/O arterial ischemic stroke (Acute) Rotator cuff arthropathy of left shoulder Excessive cerumen in both ear canals Recurrent aspiration events Hypomagnesemia Chronic obstructive pulmonary disease 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 (02/2020) Benign localized prostatic hyperplasia with lower urinary tract symptoms (LUTS) HEYDI (obstructive sleep apnea) (09/2014) Paroxysmal SVT (supraventricular tachycardia) PAF (paroxysmal atrial fibrillation) PAC (premature atrial contraction) Seizure-like activity History of tobacco abuse Acquired deviated nasal septum 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 Elena removes Peg tube Pulmonary embolism Arthritis Surgical History Status post insertion of percutaneous endoscopic gastrostomy (PEG) tube History of sinus surgery History of bronchoscopy PEG (percutaneous endoscopic gastrostomy) status (~12/2019) placed due to stroke and then had bleeding after PEG tube insertion was sent to [facility] and found weak vessel in small bowel and clamped it had blood transfusion History of cardiac catheterization (~05/01/10) 05/01/2010-PCI of OM 2 with CAROLINE H/O knee surgery Family History Mother , in her 70s of an IA Heart disease Hypertension Father , in his late 60s of pulmonary issues Emphysema, unspecified Hearing loss Grandfather Stroke Son Stroke Son Stroke, Onset Age: 52 Denies family history of Ovarian cancer Prostate cancer Breast cancer Lung cancer Colorectal cancer Cancer Asthma Social History Smoking Status: Former smoker Tobacco Type: Cigarettes Age Started Using Tobacco: 15; Age Quit Using Tobacco: 30; packs per day: 2; Cigarettes Per Day: 1.5 PPD; Second Hand Exposure: No; Do You Dip or Chew Tobacco: No; Hx Alcohol Use: No Hx Substance Use: No Preferred Language: Romansh Communication Ability: Effective Visual Impairment: No Limitations Hearing Ability: Use of Hearing Aid Documentation Improvement Specialist Required: No Beliefs That Will Affect Care: None marital status: / Current Living Situation: Significant Other Current Living Situation Comment: with S/O current occupational status: retired 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 [employer] How many Children do You have: 1 Other Information That Helps Us Care for You: No other: Retired age 52 Feels Safe at Home: Yes Safety Concerns: Feels Safe At This Time Childhood Exposure to Second-Hand Smoke: Yes Diet: regular Diet Comment: regular caffeine: Yes during the past year weight has: remained stable Dental Care, Regularly: Yes Physical Activity Frequency: Does not Exercise Seatbelt Use: always Sunscreen Use: No Assistive Devices: Nebulizer and Walker Allergies Allergies Allergy/AdvReac Type Severity Reaction Status Date / Time salmeterol Allergy Mild Hives Verified 04/19/25 08:22 Home Meds Home Medications Medication Instructions Recorded Confirmed acetaminophen 650 mg 650 mg PO Q8H PRN Pain 02/18/20 05/21/25 tablet,extended release (Tylenol Arthritis Pain) resveratrol 50 mg capsule 50 mg PO QAM 07/13/21 05/21/25 cholecalciferol (vitamin D3) 125 125 mcg PO QPM 07/25/21 05/21/25 mcg (5,000 unit) capsule coQ10 (ubiquinol) 200 mg capsule 200 mg PO QAM 07/25/21 05/21/25 docusate sodium 100 mg capsule 100 mg PO QAM 03/05/24 05/21/25 (Colace) polyethylene glycol 3350 17 17 g PO QAM 03/05/24 05/21/25 gram/dose oral powder (Miralax) albuterol sulfate 90 mcg/actuation 2 puff inhalation Q4H PRN 12/04/24 05/21/25 aerosol inhaler Shortness Of Breath tramadol 50 mg tablet 50 mg PO Q6H PRN Pain 12/04/24 05/21/25 atorvastatin 40 mg tablet 40 mg PO Q OTHER DAY 04/19/25 05/21/25 divalproex 500 mg tablet,extended 500 mg PO QAM 04/19/25 05/21/25 release 24 hr (Depakote ER) fish, borage, flaxseed oils-omega 1 cap PO QPM 04/19/25 05/21/25 3,6,9 comb no.1 1,200 mg capsule ([place] 3-6-9) fluticasone fur. 100 mcg-umeclid 1 inh inhalation QAM 04/19/25 05/21/25 62.5 mcg-vilant 25 mcg inhalat.powder (Trelegy Ellipta) dieskffycki-jcpcdgvdu-les C-Mn 500 1 cap PO BID 04/19/25 05/21/25 mg-400 mg capsule lidocaine 5 % topical patch 1 patch transdermal DAILY PRN Pain 04/19/25 05/21/25 rivaroxaban 20 mg tablet (Xarelto) 20 mg PO QAM 04/19/25 05/21/25 guaifenesin 600 mg tablet, 600 mg PO BID 04/26/25 05/21/25 extended release 12 hr (Mucinex) melatonin 10 mg tablet 10 mg PO HS sleep 04/26/25 05/21/25 vitamin B complex 1 tab PO QAM 04/26/25 05/21/25 sertraline 100 mg tablet 150 mg PO DAILY 05/21/25 05/21/25 Previous Rx's Medication Instructions Recorded omeprazole 40 mg capsule,delayed 40 mg PO DAILYBB #90 caps 02/08/25 release ipratropium 0.5 mg-albuterol 3 mg 3 ml NEB QIDR PRN shortness of 04/22/25 (2.5 mg base)/3 mL nebulization breath or wheezing #360 mL soln Results & Data (ED) Vital Signs Vital Signs - 24 hr 05/21/25 03:42 05/21/25 03:42 05/21/25 03:42 Temperature 36.5 C Temperature Source Oral Pulse Rate 86 Pulse Rate [Apical] Pulse Rhythm Regular Pulse Rhythm [Apical] Pulse Strength Normal Pulse Strength [Apical] Respiratory Rate 18 Respiratory Effort / Characteristics Non-Labored Spontaneous Non-Labored Spontaneous Respiratory Depth Normal Normal Respiratory Pattern Regular Regular Blood Pressure 127/80 Blood Pressure [Right Arm] Blood Pressure Mean 95 Blood Pressure Mean [Right Arm] Blood Pressure Position Semi-fowlers Blood Pressure Position [Right Arm] Pulse Oximetry 98 92 Oxygen Delivery Method Oxymask Oxymask Oxymask Oxygen Flow Rate 2 2 Fraction of Inspired Oxygen Sepsis Recent Fever Within 48 Hours No Sepsis New/Unexplained Change in Mental Status N/A Sepsis Action Taken by Nursing No Action Required 05/21/25 04:20 05/21/25 05:00 05/21/25 06:00 Temperature Temperature Source Pulse Rate 87 Pulse Rate [Apical] 93 H 85 Pulse Rhythm Pulse Rhythm [Apical] Regular Regular Pulse Strength Pulse Strength [Apical] Normal Normal Respiratory Rate 18 18 Respiratory Effort / Characteristics Non-Labored Spontaneous Non-Labored Spontaneous Respiratory Depth Normal Normal Respiratory Pattern Regular Regular Blood Pressure Blood Pressure [Right Arm] 161/81 H 122/83 Blood Pressure Mean Blood Pressure Mean [Right Arm] 107 96 Blood Pressure Position Blood Pressure Position [Right Arm] Semi-fowlers Semi-fowlers Pulse Oximetry 97 96 Oxygen Delivery Method Oxymask Oxymask Oxygen Flow Rate 2 2 Fraction of Inspired Oxygen Sepsis Recent Fever Within 48 Hours Sepsis New/Unexplained Change in Mental Status Sepsis Action Taken by Nursing 05/21/25 06:50 05/21/25 07:48 Temperature Temperature Source Pulse Rate Pulse Rate [Apical] 84 80 Pulse Rhythm Pulse Rhythm [Apical] Pulse Strength Pulse Strength [Apical] Respiratory Rate 22 21 Respiratory Effort / Characteristics Non-Labored Spontaneous Respiratory Depth Respiratory Pattern Blood Pressure Blood Pressure [Right Arm] 137/83 Blood Pressure Mean Blood Pressure Mean [Right Arm] 101 Blood Pressure Position Blood Pressure Position [Right Arm] Lying Pulse Oximetry 95 96 Oxygen Delivery Method Oxymask High Flow Nasal Cannula Oxygen Flow Rate 2 20 Fraction of Inspired Oxygen 30 Sepsis Recent Fever Within 48 Hours Sepsis New/Unexplained Change in Mental Status Sepsis Action Taken by Nursing Laboratory Data 05/22/25 05:32 05/22/25 05:32 Lab Results 05/21/25 05/21/25 05/21/25 Range/Units 03:48 03:57 06:16 WBC 9.06 (4.8-10.8) K/ul RBC 4.61 L (4.70-6.10) M/uL Hgb 12.7 L (14.0-18.0) g/dl Hct 39.8 L (42.0-52.0) % MCV 86.3 (80.0-100.0) fL MCH 27.5 (25.0-34.0) pg MCHC 31.9 L (32.0-36.0) g/dL RDW Std Deviation 46.3 (36.4-46.3) fL RDW Coeff of [place] 14.6 H (11.5-14.5) % Plt Count 217 (130-400) K/uL MPV 10.1 (9.4-12.4) fL Immature Gran % (Auto) 0.3 % Neut % (Auto) 73.4 % Lymph % (Auto) 11.9 % [place] % (Auto) 7.5 % Eos % (Auto) 6.3 % Baso % (Auto) 0.6 % Neut # (Auto) 6.65 H (1.40-6.50) K/uL Lymph # (Auto) 1.08 L (1.20-3.40) K/uL [place] # (Auto) 0.68 H (0.11-0.59) K/uL Eos # (Auto) 0.57 H (0.00-0.50) K/uL Baso # (Auto) 0.05 (0.00-0.20) K/uL Immature Gran # (Auto) 0.03 (0.01-0.20) K/uL PT 12.3 H (9.0-12.0) Seconds INR 1.1 (0.9-1.1) VBG pH 7.28 L (7.36-7.41) VBG pCO2 67 H (38-50) mmHg VBG pO2 < 20 mmHg VBG HCO3 32 mmol/L VBG O2 Saturation < 60.0 % VBG Base Excess 2.8 mEq/L Sodium 143 (136-145) mmol/L Potassium 3.7 (3.5-5.1) mmol/L Chloride 107 (98-107) mmol/L Carbon Dioxide 30 (21-32) mmol/L Anion Gap 6 (3-11) BUN 18 (6-23) mg/dl Creatinine 1.14 (0.6-1.4) mg/dl Est Cr Clr Drug Dosing 61.4 ml/min eGFR 65.42 BUN/Creatinine Ratio 15.8 (10-20) Glucose 108 H (70-99(Fasting)) mg/dl Calcium 8.4 L (8.6-10.3) mg/dl Magnesium 1.7 (1.7-2.4) mg/dl Total Bilirubin 0.4 (0.2-1.0) mg/dl AST 47 H (13-39) U/L ALT 51 (7-52) U/L Alkaline Phosphatase 82 (34-104) U/L Troponin I High Sens 86.7 H* 529.7 H* D (0-20) pg/ml B-Natriuretic Peptide 68 (0-100) pg/ml Total Protein 6.3 (6.0-8.3) gm/dl Albumin 3.7 (3.4-5.0) gm/dl Globulin 2.6 (2.5-4.0) gm/dl Albumin/Globulin Ratio 1.4 (0.9-2) Lipase 13 (11-82) U/L Adenovirus (PCR) Not Detected (NotDetected) B. pertussis DNA (PCR) Not Detected (NotDetected) B.parapertussis DNA PCR Not Detected (NotDetected) C. pneumoniae DNA (PCR) Not Detected (NotDetected) Coronavirus OC43 (PCR) Not Detected (NotDetected) Coronavirus HKU1 (PCR) Not Detected (NotDetected) Coronavirus 229E (PCR) Not Detected (NotDetected) SARS-CoV-2 (PCR) Not Detected (NotDetected) Coronavirus NL63 (PCR) Not Detected (NotDetected) Human Metapneumovir PCR Not Detected (NotDetected) Influenza Type A (PCR) Not Detected (NotDetected) Influenza Type B (PCR) Not Detected (NotDetected) M. pneumoniae (PCR) Not Detected (NotDetected) Parainfluenza 1 (PCR) Not Detected (NotDetected) Parainfluenza 2 (PCR) Not Detected (NotDetected) Parainfluenza 3 (PCR) Not Detected (NotDetected) Parainfluenza 4 (PCR) Not Detected (NotDetected) RSV (PCR) Not Detected (NotDetected) Entero/Rhino (PCR) Not Detected (NotDetected) Administered Medications Albuterol (Albut/Ipratrop 3mg/0.5mg Neb 3 Ml Vial) 3 ml INH Q6R [facility] Stop: 06/20/25 12:59 Last Admin: 05/22/25 19:37 Dose: 3 ml Documented By: Admin: 05/22/25 13:33 Dose: 3 ml Documented By: Admin: 05/22/25 07:35 Dose: 3 ml Documented By: Admin: 05/22/25 00:26 Dose: 3 ml Documented By: Admin: 05/21/25 19:35 Dose: 3 ml Documented By: Admin: 05/21/25 13:11 Dose: 3 ml Documented By: CAROLINA Atorvastatin Calcium (Atorvastatin 40 Mg Tab) 40 mg PO Q2D [facility] Stop: 06/20/25 20:59 Last Admin: 05/21/25 20:14 Dose: 40 mg Documented By: OSCAR Divalproex Sodium (Divalproex Extended Release 500 Mg Tab) 500 mg PO QAM [facility] Stop: 06/21/25 08:59 Last Admin: 05/22/25 09:12 Dose: 500 mg Documented By: LUIS Docusate Sodium (Docusate Sodium 100 Mg Cap) 100 mg PO QAM [facility] Stop: 06/21/25 08:59 Last Admin: 05/22/25 09:12 Dose: 100 mg Documented By: LUIS Fluticasone Furoate (Fluticasone Furoate 100mcg 14 Puffs/Inhaler) 1 puffs INH DAILY [facility] Stop: 06/21/25 08:59 Last Admin: 05/22/25 09:12 Dose: 1 puffs Documented By: LUIS Guaifenesin (Guaifenesin 600 Mg Tabcr) 1,200 mg PO BID [facility] Stop: 06/20/25 20:59 Last Admin: 05/22/25 21:07 Dose: 1,200 mg Documented By: Admin: 05/22/25 09:12 Dose: 1,200 mg Documented By: Admin: 05/21/25 20:14 Dose: 1,200 mg Documented By: OSCAR Doxycycline Hyclate 100 mg/ (Dextrose) 100 mls @ 50 mls/hr IV Q12H [facility] Stop: 05/26/25 09:14 Last Admin: 05/22/25 21:09 Dose: 50 mls/hr Documented By: Infusion: 05/22/25 11:15 Dose: Infused Documented By: Admin: 05/22/25 09:13 Dose: 50 mls/hr Documented By: Infusion: 05/21/25 22:17 Dose: Infused Documented By: Admin: 05/21/25 20:13 Dose: 50 mls/hr Documented By: Infusion: 05/21/25 13:29 Dose: Infused Documented By: Admin: 05/21/25 10:26 Dose: 50 mls/hr Documented By: MILAN Methylprednisolone 40 mg/ (Syringe) 0.64 mls @ 1.5 mls/min IV TID [facility] Stop: 06/20/25 13:59 Last Admin: 05/22/25 21:07 Dose: 1.5 mls/min Documented By: Admin: 05/22/25 13:25 Dose: 1.5 mls/min Documented By: Admin: 05/22/25 09:13 Dose: 1.5 mls/min Documented By: Admin: 05/21/25 20:13 Dose: 1.5 mls/min Documented By: Admin: 05/21/25 15:08 Dose: 1.5 mls/min Documented By: LUIS Insulin Aspart (Insulin Aspart Per Unit Charge) 0 units SC ACHS [facility] Stop: 06/20/25 11:29 Last Admin: 05/22/25 21:07 Dose: Not Given Documented By: Admin: 05/22/25 18:01 Dose: 3 units Documented By: LUIS Co-signed By: RUY Admin: 05/22/25 13:22 Dose: 3 units Documented By: LUIS Co-signed By: RICHARD Admin: 05/22/25 09:07 Dose: Not Given Documented By: Admin: 05/21/25 20:58 Dose: Not Given Documented By: Admin: 05/21/25 18:33 Dose: 2 units Documented By: LUIS Co-signed By: RICHARD Admin: 05/21/25 11:41 Dose: Not Given Documented By: MILAN Insulin Glargine (Lantus Per Unit Charge) 0 units SC HS [facility]; Protocol Stop: 06/20/25 20:59 Last Admin: 05/22/25 21:08 Dose: Not Given Documented By: Admin: 05/21/25 20:58 Dose: Not Given Documented By: OSCAR Melatonin (Melatonin 3 Mg Tab) 9 mg PO [facility] Stop: 06/20/25 20:59 Last Admin: 05/21/25 20:19 Dose: 9 mg Documented By: OSCAR Pantoprazole Sodium (Pantoprazole 40 Mg Tab) 40 mg PO DAILYBB [facility] Stop: 06/21/25 06:29 Last Admin: 05/22/25 05:54 Dose: 40 mg Documented By: OSCAR Polyethylene Glycol (Polyethylene (Miralax) 17 Gm Pack) 17 gm PO QAM [facility] Stop: 06/21/25 08:59 Last Admin: 05/22/25 09:13 Dose: 17 gm Documented By: LUIS Rivaroxaban (Rivaroxaban 20 Mg Tab) 20 mg PO QAM [facility] Stop: 06/21/25 08:59 Last Admin: 05/22/25 09:13 Dose: 20 mg Documented By: LUIS Sertraline HCl (Sertraline Hcl 50 Mg Tablet) 150 mg PO DAILY [facility] Stop: 06/21/25 08:59 Last Admin: 05/22/25 09:13 Dose: 150 mg Documented By: LUIS Umeclidinium/Vilanterol (Umeclidinium/Vilanterol 62.5/25mcg 7 Puffs/Inhaler) 1 puffs INH DAILY [facility] Stop: 06/21/25 08:59 Last Admin: 05/22/25 09:13 Dose: 1 puffs Documented By: KTS Discontinued Medications Albuterol (Albut/Ipratrop 3mg/0.5mg Neb 3 Ml Vial) 3 ml NEB NOW STA; Protocol Stop: 05/21/25 06:07 Last Admin: 05/21/25 06:16 Dose: 3 ml Documented By: BYRON Albuterol (Albut/Ipratrop 3mg/0.5mg Neb 3 Ml Vial) 3 ml NEB NOW STA; Protocol Stop: 05/21/25 07:40 Last Admin: 05/21/25 07:47 Dose: 3 ml Documented By: CAROLINA Divalproex Sodium (Divalproex Extended Release 500 Mg Tab) 500 mg PO NOW ONE Stop: 05/21/25 09:13 Last Admin: 05/21/25 10:27 Dose: 500 mg Documented By: MILAN Acetaminophen (Ofirmev) 1,000 mg in 100 mls @ 400 mls/hr IV NOW STA Stop: 05/21/25 11:20 Last Infusion: 05/21/25 11:41 Dose: Infused Documented By: Admin: 05/21/25 11:28 Dose: 400 mls/hr Documented By: MILAN Methylprednisolone (Methylprednisolone 125 Mg/2 Ml Vial) 60 mg IV NOW STA Stop: 05/21/25 07:40 Last Admin: 05/21/25 07:50 Dose: 60 mg Documented By: MILAN Pantoprazole Sodium (Pantoprazole 40 Mg Tab) 40 mg PO NOW STA Stop: 05/21/25 09:13 Last Admin: 05/21/25 11:17 Dose: Not Given Documented By: MILAN Rivaroxaban (Rivaroxaban 20 Mg Tab) 20 mg PO NOW STA Stop: 05/21/25 09:13 Last Admin: 05/21/25 10:28 Dose: 20 mg Documented By: MILAN Sertraline HCl (Sertraline Hcl 50 Mg Tablet) 150 mg PO NOW ONE Stop: 05/21/25 09:13 Last Admin: 05/21/25 10:29 Dose: 150 mg Documented By: MILAN Imaging Data Radiologist's Impression: Chest X-Ray 05/21/25 04:53 EXAM: XR chest 1V portable CLINICAL HISTORY: sob TECHNIQUE: Radiograph of chest was acquired. COMPARISON: 04/19/2025 05:25:00 HEAD STOCK OPERATOR FINDINGS: The lungs are clear and well-expanded with no pulmonary infiltrate or pleural effusion. The cardiomediastinal silhouette is within normal limits. No acute osseous abnormality. IMPRESSION: 1. No acute cardiopulmonary disease. 2. No interval changes. Electronically signed by Elvin Smart 05-21-2025 06:09 AM Discharge Plan Visit Data Chief Complaint: Shortness of Breath/Dyspnea Stated Complaint: SOB ED Provider: Petty Marie Discharge Problem: Dyspnea, Acute exacerbation of chronic obstructive pulmonary disease (COPD), Elevated troponin, Acute hypoxemic respiratory failure Patient Disposition: Admitted As Inpatient Condition: Fair Discharge Instructions Interventions: ED Discharge Assessment Last Done: 05/21/25 13:40
--- NOTE | 2025-05-21 07:59 | History & Physical Report ---
Date of Service May 21, 2025 Assessment & Plan (1) Acute hypoxic respiratory failure: (2) Acute exacerbation of chronic obstructive pulmonary disease (COPD): (3) Elevated troponin: (4) HEYDI (obstructive sleep apnea): Plan This patient is a 79-year-old male who presented on 05/21 for respiratory distress that began overnight. 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 BID Doxycycline 100 mg IV q12h for empiric coverage of atypicals IS, flutter valve #Elevated troponin Troponin elevated at 86->529 on arrival; trend q6h to peak Clinically, patient denies chest pain He reports he is chest pain-free at time of admission No ischemic changes seen on EKG While suspect elevated trop is d/t demand ischemia in the setting of CAD/acute COPD exacerbation, patient is not the best historian; NSTEMI remains within the differential Echocardiogram ordered, pending Continuous telemetry monitoring #Prediabetes Last A1c at 6.5% on 04/20/2025 Not currently on home diabetic medications SSI + T2DM diet BSG ACHS Adjust regimen as needed Pharmacy glycemic consult appreciated in the setting of high-dose steroids #H/o CVA | bulbar dysfunction | oropharyngeal dysphagia Embolic stroke in December 2019 thought secondary to atrial fibrillation Residual left-sided deficits Easy to chew diet, aspiration precautions #History of pulmonary embolism | PAF | factor VIII inhibitor disorder NSR/rate controlled on arrival Continue Xarelto #Myoclonic disorder Continue Depakote #HLD Continue atorvastatin every other day (on even numbered days) #GERD Continue PPI #Depression Continue sertraline #HEYDI CPAP HS Disposition: Admit to PCU telemetry VTE PPx: Xarelto History of Present Illness Chief Complaint: SOB/dyspnea Primary Care Provider: Baldemar Suarez DO Mr. Lassiter is a 79-year-old male with PMH arterial ischemic stroke, obstructive lung disease, PAF (on Xarelto), CAD s/p stented coronary artery, factor VIII inhibitor disorder, lupus anticoagulant positive, gastric motility disorder, tobacco use, and asthma. He presented on 05/21 for acute onset of SOB/dyspnea overnight. Patient is not the best historian at time of admission, but cannot explain what brought him in today. He reports he had trouble breathing overnight which woke him from sleep. He reports he "felt like [he] was going to of a heart attack". Patient cannot confirm that his SpO2 was in the 60s when he woke up around 2 AM. He reports he is chest pain-free at this time, and never had chest pain overnight. No chest palpitations. He denies any vomiting or aspiration events overnight. Patient does report good compliance with using his CPAP at night. He reports that his breathing is worse when he lies flat. While patient does have significant cardiac history, he denies any prior history of MIs. Patient denies smoking, tobacco use, or recent alcohol use. SpO2 was 97% on high flow nasal cannula on admission; vitals otherwise stable. ED course: DuoNeb 3 mL x 2 Solu-Medrol 60 mg IV ROS: Patient endorses fever, sweating, dry cough, acute onset SOB at rest, lower back pain (ongoing), and swelling in the ankles. Patient denies chest pain, pain going down the arms, chest palpitations, chest pressure, abdominal pain, N/V/D, burning with urination, blood in the urin e/stool, or numbness/tingling in the arms or legs. Spoke with the phone with patient's primary community outreach advocate (Tammy) reports that she woke up in the middle of the night around 2:30 AM to use the bathroom, and heard Mr. Lassiter gasping for air. She entered his room, and found that he had torn off his CPAP, and was having difficulty breathing. Referred to give him a rescue inhaler followed by nebulizer treatment. She reports that his SpO2 was initially 66% on room air. He was also "holding onto the left side of his chest", but when asked, he reported he was not having any chest pain. Tammy helps manage the patient's medications, and reports that he did not take any of his regular morning medicine today. Last took Xarelto yesterday. Called patient's son/medical POA (George) but was unable to reach. Left brief message requesting callback. Allergies Allergy/AdvReac Type Severity Reaction Status Date / Time salmeterol Allergy Mild Hives Verified 04/19/25 08:22 Home Medications Medication Instructions Recorded Confirmed Type acetaminophen 650 mg 650 mg PO Q8H PRN Pain 02/18/20 05/21/25 History tablet,extended release (Tylenol Arthritis Pain) resveratrol 50 mg capsule 50 mg PO QAM 07/13/21 05/21/25 History cholecalciferol (vitamin D3) 125 125 mcg PO QPM 07/25/21 05/21/25 History mcg (5,000 unit) capsule coQ10 (ubiquinol) 200 mg capsule 200 mg PO QAM 07/25/21 05/21/25 History docusate sodium 100 mg capsule 100 mg PO QAM 03/05/24 05/21/25 History (Colace) polyethylene glycol 3350 17 17 g PO QAM 03/05/24 05/21/25 History gram/dose oral powder (Miralax) albuterol sulfate 90 mcg/actuation 2 puff inhalation Q4H PRN 12/04/24 05/21/25 History aerosol inhaler Shortness Of Breath tramadol 50 mg tablet 50 mg PO Q6H PRN Pain 12/04/24 05/21/25 History omeprazole 40 mg capsule,delayed 40 mg PO DAILYBB #90 caps 02/08/25 05/21/25 Rx release atorvastatin 40 mg tablet 40 mg PO Q OTHER DAY 04/19/25 05/21/25 History divalproex 500 mg tablet,extended 500 mg PO QAM 04/19/25 05/21/25 History release 24 hr (Depakote ER) fish, borage, flaxseed oils-omega 1 cap PO QPM 04/19/25 05/21/25 History 3,6,9 comb no.1 1,200 mg capsule ([place] 3-6-9) fluticasone fur. 100 mcg-umeclid 1 inh inhalation QAM 04/19/25 05/21/25 History 62.5 mcg-vilant 25 mcg inhalat.powder (Trelegy Ellipta) berdzysiwmu-fhwnbyzbf-ueo C-Mn 500 1 cap PO BID 04/19/25 05/21/25 History mg-400 mg capsule lidocaine 5 % topical patch 1 patch transdermal DAILY PRN Pain 04/19/25 05/21/25 History rivaroxaban 20 mg tablet (Xarelto) 20 mg PO QAM 04/19/25 05/21/25 History ipratropium 0.5 mg-albuterol 3 mg 3 ml NEB QIDR PRN shortness of 04/22/25 05/21/25 Rx (2.5 mg base)/3 mL nebulization breath or wheezing #360 mL soln guaifenesin 600 mg tablet, 600 mg PO BID 04/26/25 05/21/25 History extended release 12 hr (Mucinex) melatonin 10 mg tablet 10 mg PO HS sleep 04/26/25 05/21/25 History vitamin B complex 1 tab PO QAM 04/26/25 05/21/25 History sertraline 100 mg tablet 150 mg PO DAILY 05/21/25 05/21/25 History Past Med/Surg History Problem List (Updated 05/21/25 @ 09:45 by Ron Theodore PA-C) Acute hypoxic respiratory failure Elevated troponin (Acute) Acute exacerbation of chronic obstructive pulmonary disease (COPD) (Acute) Dyspnea (Acute) Obstructive lung disease Excessive oral secretions Aspiration into airway H/O arterial ischemic stroke (Acute) Rotator cuff arthropathy of left shoulder Excessive cerumen in both ear canals Recurrent aspiration events Hypomagnesemia Chronic obstructive pulmonary disease 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 (02/2020) Benign localized prostatic hyperplasia with lower urinary tract symptoms (LUTS) HEYDI (obstructive sleep apnea) (09/2014) Paroxysmal SVT (supraventricular tachycardia) PAF (paroxysmal atrial fibrillation) PAC (premature atrial contraction) Seizure-like activity History of tobacco abuse Acquired deviated nasal septum 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 Elena removes Peg tube Pulmonary embolism Arthritis Surgical History Status post insertion of percutaneous endoscopic gastrostomy (PEG) tube History of sinus surgery History of bronchoscopy PEG (percutaneous endoscopic gastrostomy) status (~12/2019) placed due to stroke and then had bleeding after PEG tube insertion was sent to [facility] and found weak vessel in small bowel and clamped it had blood transfusion History of cardiac catheterization (~05/01/10) 05/01/2010-PCI of OM 2 with CAROLINE H/O knee surgery Family History Mother , in her 70s of an MD Heart disease Hypertension Father , in his late 60s of pulmonary issues Emphysema, unspecified Hearing loss Grandfather Stroke Son Stroke Son Stroke, Onset Age: 52 Denies family history of Ovarian cancer Prostate cancer Breast cancer Lung cancer Colorectal cancer Cancer Asthma Social History Smoking Status: Former smoker Tobacco Type: Cigarettes Age Started Using Tobacco: 15; Age Quit Using Tobacco: 30; packs per day: 2; Cigarettes Per Day: 1.5 PPD; Second Hand Exposure: No; Do You Dip or Chew Tobacco: No; Hx Alcohol Use: No Hx Substance Use: No Preferred Language: Romansh Communication Ability: Effective Visual Impairment: No Limitations Hearing Ability: Use of Hearing Aid Head Of Housekeeping Required: No Beliefs That Will Affect Care: None marital status: / Current Living Situation: Significant Other Current Living Situation Comment: with S/O current occupational status: retired 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 [employer] How many Children do You have: 1 Other Information That Helps Us Care for You: No other: Retired age 52 Feels Safe at Home: Yes Safety Concerns: Feels Safe At This Time Childhood Exposure to Second-Hand Smoke: Yes Diet: regular Diet Comment: regular caffeine: Yes during the past year weight has: remained stable Dental Care, Regularly: Yes Physical Activity Frequency: Does not Exercise Seatbelt Use: always Sunscreen Use: No Assistive Devices: Nebulizer and Walker Review of Systems Review of Systems: See HPI above Physical Exam Physical Exam: General: Mild respiratory distress; lethargic; non-toxic appearing; cooperative; SpO2 96% on high flow nasal cannula HEENT: normocephalic, atraumatic; no scleral icterus; PERRLA; vision intact; hard of hearing Neck: supple; trachea midline Skin: warm, dry without signs of tenting; no cyanosis; no rashes, bruising, lesions, or erythema noted CV: chest wall NTP; RRR; S1/S2 normal; no murmurs/rubs/gallops; pulses intact and symmetric at radial, DP, and PT Lungs: Mild acute respiratory distress; symmetrical chest wall expansion; expiratory wheeze appreciated across upper and lower lung serrano bilateral ABD: Soft, NTP; BS present; no rebound/guarding; moderate distention secondary to body habitus MSK: no tics or fasciculations; +1 pitting edema around the ankles, nonerythematous legs Neuro: A&Ox3; normal mood and affect; fluent speech; no focal deficits; sensation intact and symmetric in the lower extremities bilaterally Results & Data Results & Data Vital Signs (Past 12 Hours) Vital Signs Temp Pulse Pulse Resp BP BP Pulse Ox 05/21/25 07:48 80 21 96 05/21/25 06:50 84 22 137/83 95 05/21/25 06:00 85 18 122/83 96 05/21/25 05:00 93 H 18 161/81 H 97 05/21/25 04:20 87 05/21/25 03:42 92 05/21/25 03:42 36.5 C 86 18 127/80 98 05/21/25 03:42 O2 Del Method O2 Flow Rate FiO2 05/21/25 07:48 High Flow Nasal Cannula 20 30 05/21/25 06:50 Oxymask 2 05/21/25 06:00 Oxymask 2 05/21/25 05:00 Oxymask 2 05/21/25 04:20 05/21/25 03:42 Oxymask 05/21/25 03:42 Oxymask 2 05/21/25 03:42 Oxymask 2 Laboratory Results Abnormal lab results 05/21/25 05/21/25 Range/Units 03:48 06:16 RBC 4.61 L (4.70-6.10) M/uL Hgb 12.7 L (14.0-18.0) g/dl Hct 39.8 L (42.0-52.0) % MCHC 31.9 L (32.0-36.0) g/dL RDW Coeff of [place] 14.6 H (11.5-14.5) % Neut # (Auto) 6.65 H (1.40-6.50) K/uL Lymph # (Auto) 1.08 L (1.20-3.40) K/uL Harmon # (Auto) 0.68 H (0.11-0.59) K/uL Eos # (Auto) 0.57 H (0.00-0.50) K/uL PT 12.3 H (9.0-12.0) Seconds VBG pH 7.28 L (7.36-7.41) VBG pCO2 67 H (38-50) mmHg Glucose 108 H (70-99(Fasting)) mg/dl Calcium 8.4 L (8.6-10.3) mg/dl AST 47 H (13-39) U/L Troponin I High Sens 86.7 H* 529.7 H* D (0-20) pg/ml Diagnostic Findings Chest X-Ray 05/21/25 04:53 EXAM: XR chest 1V portable CLINICAL HISTORY: sob TECHNIQUE: Radiograph of chest was acquired. 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 The cardiomediastinal silhouette is within normal limits. No acute osseous abnormality. IMPRESSION: 1. No acute cardiopulmonary disease. 2. No interval changes. Electronically signed by Elvin Smart 05-21-2025 06:09 AM ECG Additional Comments: ECG on arrival revealed sinus rhythm with first-degree AV block at 95 bpm; QTc 490; RBBB; no ischemic changes appreciated when compared to EKG from 04/19/2025 Code Status & VTE Plan Code Status DNR/DNI VTE Prophylaxis Plan VTE Prophylaxis will be ordered: Yes Supervising Physician Co-Signing Physician Notes I personally examined the patient and verified all henry points of history and exam, discussed case, and agree with decision making with Prasad Theodore PA-C Seen multiple times today. No meaningful HPI or review of systems this morning. This afternoon he is awakening more, did try to eat some, he does not really talk to me, but family does note that he is looking much better. Vitals noted, in general this morning he was fairly sedate appearing and in mild respiratory distress. This afternoon he appears somewhat confused but far less respiratory distress. Lungs are quiet without rales rhonchi or wheezes. Labs and diagnostics noted, chest x-ray clear and echocardiogram reassuring. COPD exacerbationsteroids, azithromycin, nebulizers, supportive care. Given the combined hypoxic and hypercapnic respiratory failure he was on BiPAP for a whilethis seemed to have helped. Right now he is down to nasal cannula and doing wellwould have him on BiPAP overnight and then hopefully can start to wean into tomorrow. Elevated troponindemand myocardial ischemia from the hypoxia and physiologic stress, but fortunately his echocardiogram does not show wall motion abnormalities. Chronically anticoagulated. Otherwise as above. PG Care Time/CCT Total # of Minutes Spent Total Time Spent with Patient: Total time spent is greater than 50% in coordination of care (as documented) at patient's floor/unit and/or counseling patient: Coding [place] [address] INT INP/OBS CARE 3/75MIN Patient Type Established Medical Decision Making High Complexity Diagnoses Acute hypoxic respiratory failure J96.01 Acute exacerbation of chronic obstructive pulmonary disease (COPD) J44.1 Elevated troponin R79.89 HEYDI (obstructive sleep apnea) G47.33
[2025-05-21] MEDS: DOXYCYCLINE HYCLATE 100 MG in DEXTROSE 5% MINI-B 100 ML IV SCH (10:26)
[2025-05-21] MEDS: DIVALPROEX EXTENDED RELEASE 500 MG TAB PO ONE (10:27)
[2025-05-21] MEDS: RIVAROXABAN 20 MG TAB PO STA (10:28)
[2025-05-21] MEDS: SERTRALINE HCL 50 MG TABLET PO ONE (10:29)
[2025-05-21] MEDS ORDERED: ACETAMINOPHEN 325 MG TAB PO PRN (10:56)
[2025-05-21] MEDS ORDERED: GLUCOSE 10 TAB/TUBE PO PRN (10:56)
[2025-05-21] MEDS ORDERED: DEXTROSE 50% 50 ML SYRINGE IV PRN (10:56)
[2025-05-21] MEDS ORDERED: GLUCAGON FOR INJ 1 MG VIAL SQ PRN (10:56)
[2025-05-21] MEDS ORDERED: GLUCOSE 40% GEL 15 GM TUBE PO PRN (10:56)
[2025-05-21] MEDS ORDERED: PHARMACY GLYCEMIC MGMT CONSULT PRN (10:56)
[2025-05-21] MEDS ORDERED: ONDANSETRON INJ 2 MG/ML 2 ML VIAL IV PRN (10:56)
[2025-05-21] MEDS ORDERED: CARBOHYDRATES FOR HYPOGLYCEMIA PO PRN (10:56)
[2025-05-21] MEDS ORDERED: ALBUTEROL HFA 8 GM INHALER INH PRN (10:56)
[2025-05-21] MEDS: ACETAMINOPHEN 1,000 MG/100 ML VIAL IV STA (11:28)
[2025-05-21] MEDS: INSULIN ASPART PER UNIT CHARGE SC SCH (11:41)
--- NOTE | 2025-05-21 12:57 | Pharmacy Report ---
Pharmacy Glycemic Short Note 2 - Date of Service May 21, 2025 - Glycemic Short BSG Results (Last 24 hours): 05/21/25 05/21/25 03:48 11:23 Glucose 108 H POC Glucose 159 H OUTPATIENT ANTIDIABETIC REGIMEN: * none A1c = 6.5% ASSESSMENT: * Kei is a 79 yo M with h/o pre-diabetes (no anti-diabetic home meds) admitted with acute respiratory failure, acute COPD exacerbation. Started on antibiotics and high dose IV steroids (methylprednisone 60 mg IV x 1, then 40 mg IV TID). * Patient is known to the Pharmacy glycemic service from April admission. Will base insulin dosing off past admission data as he was well controlled during that stay. Despite administration of steroids, he did not require basal insulin. * Acceptable glycemic control thus far, BSGs of 108 and 159 mg/dL. PLAN FOR INPATIENT GLYCEMIC CONTROL: * Basal insulin * Lantus 0-5-10 units SC HS (5 units if 180-220, 10 units if > 220 mg/dL) * Bolus insulin * NovoLog per scale ACHS or Q6hrs while NPO * Goal Range: Low 110 mg/dL - High 140 mg/dL * Correction Factor: 30 mg/dL/unit * Nutritional / Prandial insulin per carb ratio of 1 unit per 15 grams CHO consumed Thank you.
[2025-05-21] MEDS: ALBUT/IPRATROP 3MG/0.5MG NEB 3 ML VIAL INH SCH (13:11)
--- NOTE | 2025-05-21 13:28 | XCELERA ---
[id number]
[2025-05-21 14:51] LABS: Base Excess VBG 3.2 mEq/L; HCO3 VBG 29 mmol/L; Oxygen Saturation VBG 72.0 %; PCO2 VBG 45 mmHg (38-50); PO2 VBG 37 mmHg; pH VBG 7.41 (7.36-7.41)
--- NOTE | 2025-05-21 15:08 | Electrocardiogram Report ---
Test Reason : Blood Pressure : */* mmHG Vent. Rate : 95 BPM Atrial Rate : 95 BPM P-R Int : 230 ms QRS Dur : 140 ms QT Int : 390 ms P-R-T Axes : 34 104 35 degrees QTcB Int : 490 ms Sinus rhythm with 1st degree A-V block Right bundle branch block Abnormal ECG When compared with ECG of 19-Apr-2025 05:40, QT has shortened Confirmed by Chris Stewart ([id number]) on 05/21/2025 3:07:42 PM Referred By: REFERRED SELF Confirmed By: Chris Stewart
[2025-05-21] MEDS: guaiFENesin 600 MG TABCR PO SCH (20:14)
[2025-05-21] MEDS: ATORVASTATIN 40 MG TAB PO SCH (20:14)
[2025-05-21] MEDS: MELATONIN 3 MG TAB PO SCH (20:19)
[2025-05-21] MEDS: LANTUS PER UNIT CHARGE SC SCH (20:58)
[2025-05-22 05:44] LABS: Base Excess VBG 6.9 mEq/L; HCO3 VBG 32 mmol/L; Oxygen Saturation VBG 74.5 %; PCO2 VBG 46 mmHg (38-50); PO2 VBG 43 mmHg; pH VBG 7.45 (7.36-7.41)
[2025-05-22 06:19] LABS: Hematocrit (blood only) 37.9 % (42.0-52.0); Hemoglobin 12.7 g/dl (14.0-18.0); Mean Corpuscular Hemoglobin 28.3 pg (25.0-34.0); Mean Corpuscular Volume 84.4 fL (80.0-100.0); Platelet Count 235 K/uL (130-400); RDW Standard Deviation 44.9 fL (36.4-46.3); Red Blood Count 4.49 M/uL (4.70-6.10); White Blood Count 12.95 K/ul (4.8-10.8)
[2025-05-22 06:55] LABS: Anion Gap 8.0 (3-11); Blood Urea Nitrogen 23.0 mg/dl (6-23); Calcium 9.0 mg/dl (8.6-10.3); Carbon Dioxide 26.0 mmol/L (21-32); Chloride 106.0 mmol/L (98-107); Creatinine Clr Calc Pharmacy 81.3 ml/min; Glucose 138.0 mg/dl (70-99(Fasting)); Potassium 4.6 mmol/L (3.5-5.1); Sodium 140.0 mmol/L (136-145)
[2025-05-22] MEDS ORDERED: RESVERATROL 50 MG PO SCH (09:00)
[2025-05-22] MEDS ORDERED: NON-FORMULARY MEDICATION (Fluticasone-Umeclidin-Vilanter [Trelegy Ellipta] 100-62.5-25 mcg INH SCH (09:00)
--- NOTE | 2025-05-22 09:08 | Hospitalist Progress Note ---
"Date of Service May 22, 2025 Assessment & Plan (1) Acute hypoxic respiratory failure: (2) Acute exacerbation of chronic obstructive pulmonary disease (COPD): (3) Elevated troponin: (4) HEYDI (obstructive sleep apnea): Plan This patient is a 79-year-old male who presented on 05/21 for acute respiratory distress. 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 Suspect this was multifactorial: Acute COPD exacerbation + patient taking off BiPAP overnight 05/21 There may also be a component of mucous plugging PE lower on the differential; patient reports good compliance with Xarelto, and neb/steroids on arrival improved his symptoms Board Writer reconfirmed on the evening of 05/21 that there have been no missed doses of Xarelto Will obtain chest CTA if patient medically worsens; however, no setbacks on 05/22, and patient continues to improve VBG on 05/21: 7.28/67/20/32 VBG on 05/22: 7.45/46/43/32 Ween off supplemental O2, as patient may now be slightly over-oxygenated Titrate supplemental oxygen as needed to maintain SpO2 89-92% Continuous pulse oximetry #Acute COPD exacerbation BioFire negative Solu-Medrol 60 mg IV TID DuoNeb 3 mL q6h Guaifenesin 1200 mg p.o. BID Doxycycline 100 mg IV q12h for empiric coverage of atypicals IS, flutter valve #Elevated troponin Troponin trend: 86>529>[id number]>528 Clinically, patient denies any chest pain on 05/21 or 05/22 No ischemic changes seen on EKG Echocardiogram revealed no significant changes from prior study done on 12/04/2024 LV EF remains at 55 to 60%; no wall motion abnormalities noted Suspect elevated trop is d/t demand ischemia in the setting of CAD s/p CAROLINE + acute stressors from COPD exacerbation and being on BiPAP Continuous telemetry monitoring #Low-grade fever (resolved) Mild; 37.6 C overnight on 05/22 Patient reports she did not notice fever Continue to monitor temperature #Prediabetes Last A1c at 6.5% on 04/20/2025 Not currently on home diabetic medications SSI + T2DM diet BSG ACHS Adjust regimen as needed Pharmacy glycemic consult appreciated in the setting of high-dose steroids #H/o CVA | bulbar dysfunction | oropharyngeal dysphagia Embolic stroke in December 2019 thought secondary to atrial fibrillation Residual left-sided deficits Easy to chew diet, aspiration precautions #History of pulmonary embolism | PAF | factor VIII inhibitor disorder NSR, rate controlled Continue Xarelto #Myoclonic disorder Mild exacerbations noted on the morning of 05/22 Continue Depakote #HLD Continue atorvastatin every other day (on even numbered days) #GERD Continue PPI #Depression Continue sertraline #HEYDI CPAP HS Disposition: Continued stay on PCU telemetry VTE PPx: Moustaphamariajosechinyere Spoke on the phone with patient's son (George) and [id number] on 05/22. Provided updates regarding labs/imaging/admission status. Attempted to call patient's friend/reed maker (Tammy) on 05/22, but was not able to reach. Note: she was updated at bedside evening of 05/21. Admission and Anticipated Discharge Date Admission Date: May 21, 2025 Supervising Physician Co-Signing Physician Notes Attending Attestation - Chart reviewed, care plan d/w PA Ron Theodore. I agree with the henry components of his documentation. Luis Deleon MD Subjective Mr. Lassiter is resting peacefully in bed this morning, sitting upright, eating his breakfast (slice of orange, toast, etc.). He is glad to report that his breathing is much better today than it was yesterday. He slept well overnight, and reports his breakfast is doing well this morning. He is having significant tremors this morning, and exhibits difficulty cutting up his breakfast. He reports no events overnight. Despite having a low-grade temperature of 37.6 C overnight, he reports he did not feel feverish or difficulty sleeping. No coughing. ROS: Patient denies feeling feverish, chills, night sweats, lightheadedness, chest pain, chest palpitations, pleuritic CP, cough, SOB, abdominal pain, N/V/D, or changes in urinary bowel habits Review of Systems Review of Systems: See HPI above Physical Exam Physical Exam: General: No acute distress; sitting upright in bed eating breakfast; non-toxic appearing; cooperative; SpO2 95% on 3L NC HEENT: normocephalic, atraumatic; no scleral icterus; PERRLA; vision intact; hard of hearing Neck: supple; trachea midline Skin: warm, dry without signs of tenting; no cyanosis; no rashes, bruising, lesions, or erythema noted CV: chest wall NTP; RRR; pulses intact and symmetric at radial, DP, and PT Lungs: No acute respiratory distress; no labored breathing symmetrical chest wall expansion; diminished breath sounds in the lungs bilateral; no wheezing appreciated ABD: Soft, NTP; BS present; no rebound/guarding; moderate distention secondary to body habitus : [place] bag with dark orange urine MSK: Notable tremors of the extremities bilaterally; +1 pitting edema around the ankles, nonerythematous legs Neuro: A&Ox3; normal mood and affect; fluent speech; no focal deficits; sensat ion intact and symmetric in the lower extremities bilaterally Results & Data Results & Data Vital Signs (Past 12 Hours) Vital Signs Temp Pulse Pulse Resp BP Pulse Ox O2 Del Method 05/22/25 08:16 36.3 C L 77 16 103/58 L 95 Room Air 05/22/25 07:37 71 20 95 Nasal Cannula 05/22/25 06:00 36.5 C 70 20 155/74 H 97 BiPAP 05/22/25 03:32 77 23 97 05/22/25 00:27 88 18 97 BiPAP 05/21/25 23:13 36.0 C L 89 22 134/76 97 BiPAP 05/21/25 22:04 Nasal Cannula 05/21/25 21:40 67 05/21/25 21:28 80 21 96 O2 Flow Rate FiO2 05/22/25 08:16 05/22/25 07:37 3 05/22/25 06:00 05/22/25 03:32 30 05/22/25 00:27 30 05/21/25 23:13 05/21/25 22:04 6 05/21/25 21:40 05/21/25 21:28 30 PG Care Time/CCT Total # of Minutes Spent Total Time Spent with Patient: Total time spent is greater than 50% in coordination of care (as documented) at patient's floor/unit and/or counseling patient: Coding [place] [address] SUB INP/OBS CARE 3/50MIN Patient Type Established Medical Decision Making High Complexity Diagnoses Acute hypoxic respiratory failure J96.01 Acute exacerbation of chronic obstructive pulmonary disease (COPD) J44.1 Elevated troponin R79.89 HEYDI (obstructive sleep apnea) G47.33"
[2025-05-22] MEDS: DIVALPROEX EXTENDED RELEASE 500 MG TAB PO SCH (09:12)
[2025-05-22] MEDS: DOCUSATE SODIUM 100 MG CAP PO SCH (09:12)
[2025-05-22] MEDS: FLUTICASONE FUROATE 100MCG 14 PUFFS/INHALER INH SCH (09:12)
[2025-05-22] MEDS: POLYETHYLENE (MIRALAX) 17 GM PACK PO SCH (09:13)
[2025-05-22] MEDS: UMECLIDINIUM/VILANTEROL 62.5/25MCG 7 PUFFS/INHALER INH SCH (09:13)
[2025-05-22] MEDS: RIVAROXABAN 20 MG TAB PO SCH (09:13)
[2025-05-22] MEDS: SERTRALINE HCL 50 MG TABLET PO SCH (09:13)
[2025-05-23] MEDS: ACETAMINOPHEN 1,000 MG/100 ML VIAL IV STA (03:17)
[2025-05-23 06:07] LABS: Hematocrit (blood only) 37.2 % (42.0-52.0); Hemoglobin 11.8 g/dl (14.0-18.0); Immature Granulocytes # (auto) 0.09 K/uL (0.01-0.20); Immature Granulocytes % (auto) 0.6 %; Mean Corpuscular Hemoglobin 27.1 pg (25.0-34.0); Mean Corpuscular Volume 85.5 fL (80.0-100.0); Platelet Count 247 K/uL (130-400); RDW Standard Deviation 45.7 fL (36.4-46.3); Red Blood Count 4.35 M/uL (4.70-6.10); White Blood Count 14.67 K/ul (4.8-10.8)
[2025-05-23 06:41] LABS: Anion Gap 6.0 (3-11); Blood Urea Nitrogen 35.0 mg/dl (6-23); Calcium 8.7 mg/dl (8.6-10.3); Carbon Dioxide 28.0 mmol/L (21-32); Chloride 105.0 mmol/L (98-107); Creatinine Clr Calc Pharmacy 75.4 ml/min; Glucose 131.0 mg/dl (70-99(Fasting)); Potassium 4.2 mmol/L (3.5-5.1); Sodium 139.0 mmol/L (136-145)
--- NOTE | 2025-05-23 12:25 | Discharge Summary ---
Discharge Summary Date of Service May 23, 2025 Principal Dx & Hospital Course #1 = Principal Diagnosis (1) Acute hypoxic respiratory failure: (2) Acute exacerbation of chronic obstructive pulmonary disease (COPD): (3) Elevated troponin: (4) HEYDI (obstructive sleep apnea): Plan This patient is a 79-year-old male who presented on 05/21 for acute respiratory distress. He required high flow and BiPAP on arrival, but was eventually weaned down to nasal cannula. He did have a 2 step trial for home oxygen in the hospital; while he was only able to stand briefly at the side of the bed, his SpO2 remained 91% on room air. Day of discharge 05/23: Patient is resting peacefully in bed this morning. He reports no setbacks overnight. When asked how his breathing feels compared to his baseline, he reports he is "100%" back to his baseline before he arrived in the hospital. Patient is not normally on supplemental oxygen at home. He does use CPAP at night. He is still having a mild productive cough (with white sputum production). Other than that, he slept well, and has been eating drinking well. He is eager to return home today if possible. Discussed case with patient's friends light rail train operator, Tammy, at bedside. She reports he does have good support at home, and currently is enrolled in [facility] for PT/OT/Nursing care. She also reports that she is able to call a "Safe ride" for transfer at home today, which is through [facility]. ROS: Patient endorses productive cough. Patient denies fever, chills, night sweats, dizziness/lightheadedness with standing, chest pain, chest palpitations, SOB at rest, ALFARO, abdominal pain, N/V/D, or change in urinary bowel habits. #Acute hypoxic respiratory failure Patient was reportedly hypoxic at 66% on RA at home on the morning HEALTH TECHNICAL WRITER Suspect this was multifactorial: Acute COPD exacerbation + patient taking off BiPAP overnight 05/21 There may also be a component of mucous plugging PE lower on the differential; patient reports good compliance with Xarelto, and neb/steroids on arrival improved his symptoms Insecticide Expert reconfirmed on the evening of 05/21 that there have been no missed doses of Xarelto No setbacks on 05/22 or 05/23, and patient continued to improve VBG on 05/21: 7.28/67/20/32 VBG on 05/22: 7.45/46/43/32 Weened off supplemental O2, as patient may have been slightly over oxygenated Titrate supplemental oxygen as needed to maintain SpO2 89-92% #Acute COPD exacerbation BioFire negative Inpatient course: Solu-Medrol 60 mg IV TID DuoNeb 3 mL q6h Guaifenesin 1200 mg p.o. BID Doxycycline 100 mg IV q12h for empiric coverage of atypicals IS, flutter valve Discharged home on prednisone taper Discharge home on doxycycline 100 mg p.o. BID x 4 days to complete 7 day course #Elevated troponin Troponin trend: 86>529>756>[id number]>528 Clinically, patient denies any chest pain on 05/21, 05/22, or 05/23 No ischemic changes seen on EKG Echocardiogram revealed no significant changes from prior study done on 12/04/2024 LV EF remains at 55 to 60%; no wall motion abnormalities noted Suspect elevated trop is d/t demand ischemia in the setting of CAD s/p CAROLINE + acute stressors from COPD exacerbation and being on BiPAP Recommend follow-up with automotive mechanical engineer outpatient #Prediabetes Last A1c at 6.5% on 04/20/2025 Not currently on home diabetic medications SSI + T2DM diet BSG ACHS Adjust regimen as needed Patient required a pharmacy glycemic consult while inpatient (due to high-dose steroids) Resume home regimen upon discharge #H/o CVA | bulbar dysfunction | oropharyngeal dysphagia Embolic stroke in December 2019 thought secondary to atrial fibrillation Residual left-sided deficits Easy to chew diet, aspiration precautions #History of pulmonary embolism | 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 Provided updates regarding labs/imaging/admission status. Updated patient's friend/light rail train operator (Tammy) at bedside on 05/21, 05/22, and 05/23 regarding hospital course. Admission HPI Per Admitting Provider Mr. Lassiter is a 79-year-old male with PMH arterial ischemic stroke, obstructive lung disease, PAF (on Xarelto), CAD s/p stented coronary artery, factor VIII inhibitor disorder, lupus anticoagulant positive, gastric motility disorder, tobacco use, and asthma. He presented on 05/21 for acute onset of SOB/dyspnea overnight. Patient is not the best historian at time of admission, but cannot explain what brought him in today. He reports he had trouble breathing overnight which woke him from sleep. He reports he "felt like [he] was going to of a heart attack". Patient cannot confirm that his SpO2 was in the 60s when he woke up around 2 AM. He reports he is chest pain-free at this time, and never had chest pain overnight. No chest palpitations. He denies any vomiting or aspiration events overnight. Patient does report good compliance with using his CPAP at night. He reports that his breathing is worse when he lies flat. While patient does have significant cardiac history, he denies any prior history of MIs. Patient denies smoking, tobacco use, or recent alcohol use. SpO2 was 97% on high flow nasal cannula on admission; vitals otherwise stable. ED course: DuoNeb 3 mL x 2 Solu-Medrol 60 mg IV ROS: Patient endorses fever, sweating, dry cough, acute onset SOB at rest, lower back pain (ongoing), and swelling in the ankles. Patient denies chest pain, pain going down the arms, chest palpitations, chest pressure, abdominal pain, N/V/D, burning with urination, blood in the urine/stool, or numbness/tingling in the arms or legs. Spoke with the phone with patient's primary light rail train operator (Tammy) reports that she woke up in the middle of the night around 2:30 AM to use the bathroom, and heard Mr. Lassiter gasping for air. She entered his room, and found that he had torn off his CPAP, and was having difficulty breathing. Referred to give him a rescue inhaler followed by nebulizer treatment. She reports that his SpO2 was initially 66% on room air. He was also "holding onto the left side of his chest", but when asked, he reported he was not having any chest pain. Tammy helps manage the patient's medications, and reports that he did not take any of his regular morning medicine today. Last took Xarelto yesterday. Called patient's son/medical POA (George) but was unable to reach. Left brief message requesting callback. Admission Exam Per Admitting Provider General: Mild respiratory distress; lethargic; non-toxic appearing; cooperative; SpO2 96% on high flow nasal cannula HEENT: normocephalic, atraumatic; no scleral icterus; PERRLA; vision intact; hard of hearing Neck: supple; trachea midline Skin: warm, dry without signs of tenting; no cyanosis; no rashes, bruising, lesions, or erythema noted CV: chest wall NTP; RRR; S1/S2 normal; no murmurs/rubs/gallops; pulses intact and symmetric at radial, DP, and PT Lungs: Mild acute respiratory distress; symmetrical chest wall expansion; expiratory wheeze appreciated across upper and lower lung serrano bilateral ABD: Soft, NTP; BS present; no rebound/guarding; moderate distention secondary to body habitus MSK: no tics or fasciculations; +1 pitting edema around the ankles, nonerythematous legs Neuro: A&Ox3; normal mood and affect; fluent speech; no focal deficits; sensation intact and symmetric in the lower extremities bilaterally Discharge Exam General: No acute distress; light rail train operator at bedside; sitting upright in bed eating lunch; non-toxic appearing; cooperative; SpO2 91% on RA HEENT: normocephalic, atraumatic; no scleral icterus; PERRLA; vision intact; [address] of hearing Neck: supple; trachea midline Skin: warm, dry without signs of tenting; no cyanosis; no rashes, bruising, lesions, or erythema noted CV: chest wall NTP; RRR; pulses intact and symmetric at radial, DP, and PT Lungs: No acute respiratory distress; no labored breathing; symmetrical chest wall expansion; diminished breath sounds in the lungs bilateral; no wheezing appreciated ABD: Soft, NTP; BS present; no rebound/guarding; moderate distention secondary to body habitus : [place] bag with dark orange urine MSK: Notable tremors of the extremities bilaterally; +1 pitting edema around the ankles, nonerythematous legs Neuro: A&Ox3; flat mood and affect; fluent speech; patient reports sensations intact and symmetric in the lower extremities bilaterally assessed via light touch Discharge Plan Discharge Items Patient Disposition: Home - Home Health Services Reason For Visit: RESPIRATORY DISTRESS Discharge Diagnosis: Acute COPD exacerbation Condition on Discharge: Fair Activity: As commented below Activity Comment: Gradually resume previous activity as tolerated Non-emergency contact: Primary Care Provider Call non-emergency contact if: you have any medication questions, your symptoms worsen, your pain is not controlled and you have a fever Follow-up/Referrals: Baldemar Suarez DO [Primary Care Provider] - Diet: Carb Consistent or DM2 and Heart Healthy Diet Texture: Easy to Chew Addtl Attending Provider Instructions: You were hospitalized at [facility] from 05/21 - 05/23 for acute onset of respiratory distress overnight. Prior to arrival, you had a reported oxygen saturation of 66% on room air. On arrival you were placed on BiPAP, and your oxygen levels gradually improved. Your initial chest x-ray on arrival revealed no acute cardiopulmonary processes, or consolidations to suggest pneumonia. You also improved rapidly with nebulizer/steroid treatments, and given no reported missed doses of Xarelto, this lowered the suspicion that a pulmonary embolism was the cause of your breathing difficulties. It is suspected that your respiratory distress was due to: (1) mucous plug, (2) COPD exacerbation, and (3) accidentally taking off your CPAP overnight. Given you are now currently back on room air, and report that your respiratory status has returned to its baseline before hospitalization, we feel that it is safe for you to return home with a prednisone taper and home nebulizer treatments. Additionally, on arrival you had an elevated troponin level. Troponin is an enzyme that the heart releases during times of acute stress. A normal troponin level is between 0-20. Your troponin became significantly elevated, peaking at 837 over the course of your hospital stay. While you reported no chest pain throughout your hospital stay, out of an abundance of caution, an echocardiogram was obtained. This echocardiogram showed no significant changes when compared to the study done on 12/04/2024 (there were no regional wall motion abnormalities of the heart, and your ejection fraction remained stable at 55 to 60%). At otherwise, we feel that this elevated troponin was likely due to demand ischemia due to your known coronary artery disease/stents in the setting of an acute COPD exacerbation. Please continue to follow-up with your automotive mechanical engineer as scheduled. New prescriptions: If you develop new or worsening symptoms, such as sudden onset of respiratory distress, chest pain, pain with deep breaths, blood in cough, swelling of the lower extremities, or fevers, please return to the Emergency Department immediately. It was a pleasure taking care of you. Please reach out with any questions or concerns. Sincerely, The Hospital Medicine team at [facility] Pending Studies at Discharge: No Stand-Alone Forms: My [facility] Medications and DC Order Prescriptions: Continued omeprazole 40 mg capsule,delayed release(DR/EC) 40 mg PO DAILYBB Qty: 90 1RF guaifenesin [Mucinex] 600 mg tablet extended release 12hr 600 mg PO BID resveratrol 50 mg capsule 50 mg PO QAM polyethylene glycol 3350 [Miralax] 17 gram/dose powder 17 g PO QAM docusate sodium [Colace] 100 mg capsule 100 mg PO QAM acetaminophen [Tylenol Arthritis Pain] 650 mg Tablet Extended Release 650 mg PO Q8H PRN (Reason: Pain) coQ10 (ubiquinol) 200 mg Capsule 200 mg PO QAM cholecalciferol (vitamin D3) 125 mcg (5,000 unit) capsule 125 mcg PO QPM czzmtipvumn-jhhnkrkgr-bds C-Mn 500-400 mg Capsule 1 cap PO BID [place] 3-6-9 1,200 mg Capsule 1 cap PO QPM atorvastatin 40 mg tablet 40 mg PO Q OTHER DAY Rx Instructions: Every other evening divalproex [Depakote ER] 500 mg tablet extended release 24 hr 500 mg PO QAM lidocaine 5 % adhesive patch,medicated 1 patch transdermal DAILY PRN (Reason: Pain) Rx Instructions: apply 1 patch topically every 24 hours. leave on most painful area for up to 12 hours Xarelto 20 mg tablet 20 mg PO QAM Trelegy Ellipta 100-62.5-25 mcg blister with device 1 inh inhalation QAM ipratropium-albuterol 0.5 mg-3 mg(2.5 mg base)/3 mL Solution For Nebulization 3 ml NEB QIDR PRN (Reason: shortness of breath or wheezing) Qty: 360 0RF vitamin B complex Tablet 1 tab PO QAM tramadol 50 mg tablet 50 mg PO Q6H PRN (Reason: Pain) albuterol sulfate 90 mcg/actuation HFA aerosol inhaler 2 puff INHALATION Q4H PRN (Reason: Shortness Of Breath) melatonin 10 mg tablet 10 mg PO HS sertraline 100 mg tablet 150 mg PO DAILY Rx Instructions: TAKE 1 & 1/2 TABLETS BY MOUTH EVERY DAY Admission Data Admit Date/Time: 05/21/25 08:30 Attending Provider: Luis Deleon Admit Provider: Jeff Cohen Primary Care Provider: Baldemar Suarez Other Providers: Jeff Cohen Hospital Stay Data Consultations 05/21/25 07:48 ED Decision to Admit Stat Discharge Instructions Given to Patient (Per Discharging Provider) You were hospitalized at [facility] from 05/21 - 05/23 for acute onset of respiratory distress overnight. Prior to arrival, you had a reported oxygen saturation of 66% on room air. On arrival you were placed on BiPAP, and your oxygen levels gradually improved. Your initial chest x-ray on arrival revealed no acute cardiopulmonary processes, or consolidations to suggest pneumonia. You also improved rapidly with nebulizer/steroid treatments, and given no reported missed doses of Xarelto, this lowered the suspicion that a pulmonary embolism was the cause of your breathing difficulties. It is suspected that your respiratory distress was due to: (1) mucous plug, (2) COPD exacerbation, and (3) accidentally taking off your CPAP overnight. Given you are now currently back on room air, and report that your respiratory status has returned to its baseline before hospitalization, we feel that it is safe for you to return home with a prednisone taper and home nebulizer treatments. Additionally, on arrival you had an elevated troponin level. Troponin is an enzyme that the heart releases during times of acute stress. A normal troponin level is between 0-20. Your troponin became significantly elevated, peaking at 837 over the course of your hospital stay. While you reported no chest pain throughout your hospital stay, out of an abundance of caution, an echocardiogram was obtained. This echocardiogram showed no significant changes when compared to the study done on 12/04/2024 (there were no regional wall motion abnormalities of the heart, and your ejection fraction remained stable at 55 to 60%). At otherwise, we feel that this elevated troponin was likely due to demand ischemia due to your known coronary artery disease/stents in the setting of an acute COPD exacerbation. Please continue to follow-up with your automotive mechanical engineer as scheduled. New prescriptions: If you develop new or worsening symptoms, such as sudden onset of respiratory distress, chest pain, pain with deep breaths, blood in cough, swelling of the lower extremities, or fevers, please return to the Emergency Department immediately. It was a pleasure taking care of you. Please reach out with any questions or concerns. Sincerely, The Hospital Medicine team at [facility] Total Time Total Time Spent Total Time Spent (In Minutes): 40 Coding Diagnoses Acute hypoxic respiratory failure J96.01 Acute exacerbation of chronic obstructive pulmonary disease (COPD) J44.1 Elevated troponin R79.89 HEYDI (obstructive sleep apnea) G47.33
--- NOTE | 2025-05-23 13:21 | Hospitalist Progress Note ---
Date of Service May 23, 2025 Assessment & Plan (1) Acute hypoxic respiratory failure: (2) Acute exacerbation of chronic obstructive pulmonary disease (COPD): (3) Elevated troponin: (4) HEYDI (obstructive sleep apnea): Plan This patient is a 79-year-old male who presented on 05/21 for acute respiratory distress. He required high flow and BiPAP on arrival, but was eventually weaned down to nasal cannula. He did have a 2 step trial for home oxygen in the hospital; while he was unable to ambulate, could only briefly stand at the edge of the bed, and therefore failed the test. However, his SpO2 reportedly remained at 91% on room air with this activity. Do feel that he is medically safe for discharge at this time, as he is 93% on room air the afternoon of 05/23. Talked with case management; unable to obtain transport on 05/23. Will plan for early discharge on the morning of 05/24. 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 AUTOMOTIVE Suspect this was multifactorial: Acute COPD exacerbation + patient taking off BiPAP overnight 05/21 There may also be a component of mucous plugging PE lower on the differential; patient reports good compliance with Xarelto, and neb/steroids on arrival improved his symptoms Home Mortgage Disclosure Act Specialist reconfirmed on the evening of 05/21 that there have been no missed doses of Xarelto No setbacks on 05/22 or 05/23, and patient continues to improve VBG on 05/21: 7.28/67/20/32 VBG on 05/22: 7.45/46/43/32 Weened off supplemental O2, as patient may have been slightly over oxygenated Titrate supplemental oxygen as needed to maintain SpO2 89-92% #Acute COPD exacerbation BioFire negative Inpatient course: Solu-Medrol 60 mg IV TID DuoNeb 3 mL q6h Guaifenesin 1200 mg p.o. BID Doxycycline 100 mg IV q12h for empiric coverage of atypicals IS, flutter valve Recommend discharge home on prednisone taper Recommend discharge home on doxycycline 100 mg p.o. BID x 3 days to complete 7 day course #Elevated troponin Troponin trend: 86>529>756>837>528 Clinically, patient denies any chest pain on 05/21, 05/22, or 05/23 No ischemic changes seen on EKG Echocardiogram revealed no significant changes from prior study done on 12/04/2024 LV EF remains at 55 to 60%; no wall motion abnormalities noted Suspect elevated trop is d/t demand ischemia in the setting of CAD s/p CAROLINE + acute stressors from COPD exacerbation and being on BiPAP Recommend follow-up with taker down outpatient #Prediabetes Last A1c at 6.5% on 04/20/2025 Not currently on home diabetic medications SSI + T2DM diet BSG ACHS Adjust regimen as needed Patient required a pharmacy glycemic consult while inpatient (due to high-dose steroids) Resume home regimen upon discharge #H/o CVA | bulbar dysfunction | oropharyngeal dysphagia Embolic stroke in December 2019 thought secondary to atrial fibrillation Residual left-sided deficits Easy to chew diet, aspiration precautions #History of pulmonary embolism | PAF | factor VIII inhibitor disorder NSR, rate controlled Continue Xarelto #Myoclonic disorder Mild exacerbations noted on the morning of 05/22 Continue Depakote #HLD Continue atorvastatin every other day (on even numbered days) #GERD Continue PPI #Depression Continue sertraline #HEYDI CPAP HS Disposition: Continued stay on PCU telemetry, with planned discharge on the morning of 05/24 (transport has been arranged) VTE PPx: Tali Spoke on the phone with patient's son (George) and [id number] on 05/22. Provided updates regarding labs/imaging/admission status. Updated patient's friend/pie crust mixer (Tammy) at bedside on 05/21, 05/22, and 05/23 regarding hospital course. Admission and Anticipated Discharge Date Admission Date: May 21, 2025 Supervising Physician Co-Signing Physician Notes Attending Attestation - Chart reviewed, care plan d/w NATHAN Theodore. I agree with the henry components of his documentation. Luis Deleon MD Subjective Patient is resting peacefully in bed this morning. He reports no setbacks overnight. When asked how his breathing feels compared to his baseline, he reports he is "100%" back to his baseline before he arrived in the hospital. Patient is not normally on supplemental oxygen at home. He does use CPAP at night. He is still having a mild productive cough (with white sputum production). Other than that, he slept well, and has been eating drinking well. He is eager to return home today if possible. Discussed case with patient's friends pie crust mixer, Tammy, at bedside. She reports he does have good support at home, and currently is enrolled in [facility] for PT/OT/Nursing care. She also reports that she is able to call a "Safe ride" for transfer at home today, which is through [facility]. ROS: Patient endorses productive cough. Patient denies fever, chills, night sweats, dizziness/lightheadedness with standing, chest pain, chest palpitations, SOB at rest, ALFARO, abdominal pain, N/V/D, or change in urinary bowel habits. Update at 1320: Patient's pie crust mixer (Tammy) reports that the safe ride is unable to come today. Touched base with case management, who report they are unable to to obtain transport home today for the patient. Will plan for early discharge tomorrow morning on 05/24. Review of Systems Review of Systems: See HPI above Physical Exam Physical Exam: General: No acute distress; pie crust mixer at bedside; sitting upright in bed eating lunch; non-toxic appearing; cooperative; SpO2 93% on RA HEENT: normocephalic, atraumatic; no scleral icterus; PERRLA; vision intact; hard of hearing Neck: supple; trachea midline Skin: warm, dry without signs of tenting; no cyanosis; no rashes, bruising, lesions, or erythema noted CV: chest wall NTP; RRR; pulses intact and symmetric at radial, DP, and PT Lungs: No acute respiratory distress; no labored breathing; symmetrical chest wall expansion; diminished breath sounds in the lungs bilateral; no wheezing appreciated ABD: Soft, NTP; BS present; no rebound/guarding; moderate distention secondary to body habitus : [place] bag with dark orange urine MSK: Notable tremors of the extremities bilaterally; +1 pitting edema around the ankles, nonerythematous legs Neuro: A&Ox3; flat mood and affect; fluent speech; patient reports sensations intact and symmetric in the lower extremities bilaterally assessed via light touch Results & Data Results & Data Vital Signs (Past 12 Hours) Vital Signs Temp Pulse Pulse Pulse Pulse Resp Resp 05/23/25 13:15 90 18 05/23/25 10:44 88 86 20 05/23/25 08:06 36.6 C 72 19 05/23/25 07:20 70 14 07/20/25 03:08 37.1 C 96 H 24 05/23/25 02:27 71 15 Resp BP Pulse Ox Pulse Ox Pulse Ox O2 Del Method O2 Flow Rate 05/23/25 13:15 93 Room Air 05/23/25 10:44 18 91 95 05/23/25 08:06 106/64 96 Nasal Cannula 3 05/23/25 07:20 98 BiPAP 05/23/25 03:08 154/79 H 96 BiPAP 05/23/25 02:27 95 FiO2 05/23/25 13:15 05/23/25 10:44 05/23/25 08:06 05/23/25 07:20 30 05/23/25 03:08 05/23/25 02:27 30 PG Care Time/CCT Total # of Minutes Spent Total Time Spent with Patient: Total time spent is greater than 50% in coordination of care (as documented) at patient's floor/unit and/or counseling patient: Coding [place] [address] SUB INP/OBS CARE 3/50MIN Patient Type Established Medical Decision Making High Complexity Diagnoses Acute hypoxic respiratory failure J96.01 Acute exacerbation of chronic obstructive pulmonary disease (COPD) J44.1 Elevated troponin R79.89 HEYDI (obstructive sleep apnea) G47.33
[2025-05-24 06:04] LABS: Hematocrit (blood only) 36.6 % (42.0-52.0); Hemoglobin 11.7 g/dl (14.0-18.0); Immature Granulocytes # (auto) 0.08 K/uL (0.01-0.20); Immature Granulocytes % (auto) 0.7 %; Mean Corpuscular Hemoglobin 27.8 pg (25.0-34.0); Mean Corpuscular Volume 86.9 fL (80.0-100.0); Platelet Count 205 K/uL (130-400); RDW Standard Deviation 46.2 fL (36.4-46.3); Red Blood Count 4.21 M/uL (4.70-6.10); White Blood Count 11.65 K/ul (4.8-10.8)
[2025-05-24 06:22] LABS: Anion Gap 7.0 (3-11); Blood Urea Nitrogen 34.0 mg/dl (6-23); Calcium 8.5 mg/dl (8.6-10.3); Carbon Dioxide 28.0 mmol/L (21-32); Chloride 103.0 mmol/L (98-107); Creatinine Clr Calc Pharmacy 66.0 ml/min; Glucose 160.0 mg/dl (70-99(Fasting)); Potassium 3.9 mmol/L (3.5-5.1); Sodium 138.0 mmol/L (136-145)
[2025-05-24 07:37] VITALS: BP 130/71; TEMP 97.9; O2SAT 93
[2025-05-24 07:43] VITALS: RESP 16
--- NOTE | 2025-05-24 09:15 | Discharge Summary ---
Discharge Summary Date of Service May 24, 2025 Principal Dx & Hospital Course #1 = Principal Diagnosis (1) Acute hypoxic respiratory failure: (2) Acute exacerbation of chronic obstructive pulmonary disease (COPD): (3) Elevated troponin: (4) HEYDI (obstructive sleep apnea): Plan This is a 79 year old gentleman who presented on 05/21/2025 in respiratory distress. Originally was to be discharged on 05/23 but due to transportation issues this was delayed to 05/24. #acute hypoxic respiratory failure/COPD exacerbation reportedly hypoxic at 66% on RA @ home AM [employer] CXR 05/21: no acute cardiopulmonary disease. CBC w/ downtrending leukocytosis. multifactorial: acute COPD exacerbation + taking off BiPAP overnight on 05/21. No missed doses of Xarelto - PE low suspicion given improvement of symptoms after steroids Weaned off oxygen to room air w/ goal O2 sat of 89-92% Continue Prednisone taper on discharge --> s/p IV Solu Medrol while inpatient. Continue home nebulizers Continue Doxycycline upon discharge to complete 7 day course for atypical pneumonia coverage. 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 Discharge Exam General: No acute distress; cooperative; SpO2 93% on RA HEENT: normocephalic, atraumatic; no scleral icterus; PERRLA; vision intact; hard of hearing Neck: supple; trachea midline Skin: warm, dry without signs of tenting; no cyanosis; no rashes, bruising, lesions, or erythema noted Lungs: No acute respiratory distress; no labored breathing; symmetrical chest wall expansion; diminished breath sounds in the lungs bilateral; no wheezing appreciated : [place] bag with dark orange urine MSK: Notable tremors of the extremities bilaterally; +1 pitting edema around the ankles, nonerythematous legs Neuro: A&Ox3; flat mood and affect; fluent speech Discharge Plan Discharge Items Patient Disposition: Home - Home Health Services Reason For Visit: RESPIRATORY DISTRESS Discharge Diagnosis: Acute COPD exacerbation Condition on Discharge: Fair Activity: As commented below Activity Comment: Gradually resume previous activity as tolerated Non-emergency contact: Primary Care Provider Call non-emergency contact if: you have any medication questions, your symptoms worsen, your pain is not controlled and you have a fever Follow-up/Referrals: Baldemar Suarez DO [Primary Care Provider] - 05/27/25 Diet: Carb Consistent or DM2 and Heart Healthy Diet Texture: Easy to Chew Addtl Attending Provider Instructions: You were hospitalized at [facility] from 05/21 - 05/24 for acute onset of respiratory distress overnight. Prior to arrival, you had a reported oxygen saturation of 66% on room air. On arrival you were placed on BiPAP, and your oxygen levels gradually improved. Your initial chest x-ray on arrival revealed no acute cardiopulmonary processes, or consolidations to suggest pneumonia. You also improved rapidly with nebulizer/steroid treatments. It is suspected that your respiratory distress was due to: (1) mucous plug, (2) COPD exacerbation, and (3) accidentally taking off your CPAP overnight. Given you are now currently back on room air, and report that your respiratory status has returned to its former baseline prior to hospitalization, we feel that it is safe for you to return home with a prednisone taper and home nebulizer treatments. We also recommend you complete course of doxycycline for atypical pneumonia coverage. Additionally, on arrival you had an elevated troponin level. Troponin is an enzyme that the heart releases during times of acute stress. A normal troponin level is between 0-20. Your troponin became significantly elevated, peaking at 837 over the course of your hospital stay. While you reported no chest pain throughout your hospital stay, out of an abundance of caution, an echocardiogram was obtained. This echocardiogram showed no significant changes when compared to the study done on 12/04/2024. At otherwise, we feel that this elevated troponin was likely due to demand ischemia due to your known coronary artery disease/stents in the setting of an acute COPD exacerbation. 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 New prescriptions: Please take the Prednisone taper as directed Please take Doxycycline twice daily for the next 3 days. Your first dose at home will be this evening, 05/24. Please take with food to avoid GI upset. Please plan to follow-up with your PCP in the next 1 to 2 weeks for a transitional care appointment. If you develop new or worsening symptoms, such as sudden onset of respiratory distress, chest pain, pain with deep breaths, blood in cough, swelling of the lower extremities, or fevers, please return to the Emergency Department i mmediately. It was a pleasure taking care of you. Please reach out with any questions or concerns. Sincerely, The Hospital Medicine team at [facility] Pending Studies at Discharge: No Stand-Alone Forms: My [facility] Medications and DC Order Prescriptions: New prednisone 10 mg tablet 10 mg PO DIRECTED Qty: 30 0RF Rx Instructions: Please take 4 tablets for 3 days starting this evening, 05/24 followed by 3 tablets for 3 days followed by 2 tablets for 3 days followed by 1 tablet for 3 days. doxycycline hyclate 100 mg capsule 100 mg PO BID Qty: 6 0RF Continued omeprazole 40 mg capsule,delayed release(DR/EC) 40 mg PO DAILYBB Qty: 90 1RF Trelegy Ellipta 100-62.5-25 mcg blister with device 1 inh inhalation QAM Qty: 180 0RF guaifenesin [Mucinex] 600 mg tablet extended release 12hr 600 mg PO BID resveratrol 50 mg capsule 50 mg PO QAM polyethylene glycol 3350 [Miralax] 17 gram/dose powder 17 g PO QAM docusate sodium [Colace] 100 mg capsule 100 mg PO QAM acetaminophen [Tylenol Arthritis Pain] 650 mg Tablet Extended Release 650 mg PO Q8H PRN (Reason: Pain) coQ10 (ubiquinol) 200 mg Capsule 200 mg PO QAM cholecalciferol (vitamin D3) 125 mcg (5,000 unit) capsule 125 mcg PO QPM [id number]-pld C-Mn 500-400 mg Capsule 1 cap PO BID [place] 3-6-9 1,200 mg Capsule 1 cap PO QPM atorvastatin 40 mg tablet 40 mg PO Q OTHER DAY Rx Instructions: Every other evening divalproex [Depakote ER] 500 mg tablet extended release 24 hr 500 mg PO QAM lidocaine 5 % adhesive patch,medicated 1 patch transdermal DAILY PRN (Reason: Pain) Rx Instructions: apply 1 patch topically every 24 hours. leave on most painful area for up to 12 hours Xarelto 20 mg tablet 20 mg PO QAM ipratropium-albuterol 0.5 mg-3 mg(2.5 mg base)/3 mL Solution For Nebulization 3 ml NEB QIDR PRN (Reason: shortness of breath or wheezing) Qty: 360 0RF vitamin B complex Tablet 1 tab PO QAM tramadol 50 mg tablet 50 mg PO Q6H PRN (Reason: Pain) albuterol sulfate 90 mcg/actuation HFA aerosol inhaler 2 puff INHALATION Q4H PRN (Reason: Shortness Of Breath) melatonin 10 mg tablet 10 mg PO HS sertraline 100 mg tablet 150 mg PO DAILY Rx Instructions: TAKE 1 & 1/2 TABLETS BY MOUTH EVERY DAY Discharge Orders: Discharge Order (Routine); Ordered 05/24/25 Ordered By: Kaia Solomon Admission Data Admit Date/Time: 05/21/25 08:30 Attending Provider: Luis Deleon Admit Provider: Jeff Cohen Primary Care Provider: Baldemar Suarez Other Providers: Jeff Cohen Other Interventions: Discharge Summary Assessment (RN) Last Done: 05/24/25 11:42 Hospital Stay Data Consultations 05/21/25 07:48 ED Decision to Admit Stat Pending Results Patient Have Any Pending Studies at Discharge: No Discharge Instructions Given to Patient (Per Discharging Provider) You were hospitalized at [facility] from 05/21 - 05/24 for acute onset of respiratory distress overnight. Prior to arrival, you had a reported oxygen saturation of 66% on room air. On arrival you were placed on BiPAP, and your oxygen levels gradually improved. Your initial chest x-ray on arrival revealed no acute cardiopulmonary processes, or consolidations to suggest pneumonia. You also improved rapidly with nebulizer/steroid treatments. It is suspected that your respiratory distress was due to: (1) mucous plug, (2) COPD exacerbation, and (3) accidentally taking off your CPAP overnight. Given you are now currently back on room air, and report that your respiratory status has returned to its former baseline prior to hospitalization, we feel that it is safe for you to return home with a prednisone taper and home nebulizer treatments. We also recommend you complete course of doxycycline for atypical pneumonia coverage. Additionally, on arrival you had an elevated troponin level. Troponin is an enzyme that the heart releases during times of acute stress. A normal troponin level is between 0-20. Your troponin became significantly elevated, peaking at 837 over the course of your hospital stay. While you reported no chest pain throughout your hospital stay, out of an abundance of caution, an echocardiogram was obtained. This echocardiogram showed no significant changes when compared to the study done on 12/04/2024. At otherwise, we feel that this elevated troponin was likely due to demand ischemia due to your known coronary artery disease/stents in the setting of an acute COPD exacerbation. 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 New prescriptions: Please take the Prednisone taper as directed Please take Doxycycline twice daily for the next 3 days. Your first dose at home will be this evening, 05/24. Please take with food to avoid GI upset. Please plan to follow-up with your PCP in the next 1 to 2 weeks for a transitional care appointment. If you develop new or worsening symptoms, such as sudden onset of respiratory distress, chest pain, pain with deep breaths, blood in cough, swelling of the lower extremities, or fevers, please return to the Emergency Department immediately. It was a pleasure taking care of you. Please reach out with any questions or concerns. Sincerely, The Hospital Medicine team at [facility] Total Time Total Time Spent Total Time Spent (In Minutes): 45 Total Time Includes: Examination of the Patient, Discharge Planning and Medication Reconciliation Coding Level of Care Code 32776 INP/OBS DISCH >30 MIN Diagnoses Acute hypoxic respiratory failure J96.01 Acute exacerbation of chronic obstructive pulmonary disease (COPD) J44.1 Elevated troponin R79.89 HEYDI (obstructive sleep apnea) G47.33
[2025-05-24 11:44] VITALS: PULSE 86
== END 2025-05-24 12:45 | disposition home health service (06) | DRG 190 ==
LOC: ED 03:39 → SUATTDRO 08:30 → EDINP 08:30 → 4W 13:11
DX: Z99.89 Dependence on other enabling machines and devices; J44.1 Chronic obstructive pulmonary disease with (acute) exacerbation; Z79.899 Other long term (current) drug therapy; R13.12 Dysphagia, oropharyngeal phase; I24.89 Other forms of acute ischemic heart disease; K21.9 Gastro-esophageal reflux disease without esophagitis; J96.02 Acute respiratory failure with hypercapnia; I69.354 Hemiplegia and hemiparesis following cerebral infarction affecting left non-dominant side; Z79.01 Long term (current) use of anticoagulants; Z86.711 Personal history of pulmonary embolism; E78.2 Mixed hyperlipidemia; R73.03 Prediabetes; G47.33 Obstructive sleep apnea (adult) (pediatric); J96.01 Acute respiratory failure with hypoxia; I25.10 Atherosclerotic heart disease of native coronary artery without angina pectoris; F32.A Depression, unspecified; D66 Hereditary factor VIII deficiency; Z88.8 Allergy status to other drugs, medicaments and biological substances; I48.0 Paroxysmal atrial fibrillation

== ENCOUNTER 2025-08-29 18:28 | Inpatient (IN) ==
--- NOTE | 2025-08-29 18:53 | Emergency Department Note ---
Impression & Plan Acute hypoxic respiratory failure, COPD exacerbation, Shortness of breath ED Provider Note NAME: RADHA CANCINO AGE: 79 SEX: M : 1945 ARRIVES VIA: Ambulance INFORMANT: Patient ED PROVIDER(S): Jeff Dominguez DO CHIEF COMPLAINT: Shortness of breath HPI: Patient is a 79-year-old male with past medical history of COPD who presents to the ER for cough and shortness of breath. Patient notes that symptoms started this past Saturday and have been gradually getting worse. Patient was brought in by EMS and they provide additional history that he was hypoxic at 80%. Denies any chest pain or belly pain. No nausea, vomiting or diarrhea. No dysuria, urgency or frequency. No other exacerbating or remitting factors. ADDITIONAL HISTORY OBTAINED: Per HPI Chronic Medical/Social Conditions Affecting Care: Per HPI PAST MEDICAL HISTORY:See Below PAST SURGICAL HISTORY:See Below FAMILY HISTORY:See Below SOCIAL HISTORY:See Below HOME MEDICATIONS:See Below ALLERGIES:See Below VITALS:See Below PHYSICAL EXAMINATION: GENERAL: Sitting up in bed, alert, slightly ill-appearing on nasal cannula EYE EXAM: normal conjunctiva. PERRL and EOM's grossly intact. OROPHARYNX: no exudate, no erythema, lips, buccal mucosa, and tongue normal and mucous membranes are moist NECK: supple, no nuchal rigidity, no adenopathy, non-tender LUNGS: Clear to auscultation. Normal chest wall mechanics HEART: no murmurs, S1 normal and S2 normal ABDOMEN: abdomen soft, non-tender, normo-active bowel sounds, no masses, no rebound or guarding. BACK: Back is symmetrical on inspection and there is no deformity, no midline tenderness, no CVA tenderness. SKIN: no rashes and no bruising UPPER EXTREMITIES: upper extremities are grossly normal. LOWER EXTREMITIES: No pitting edema. NEURO EXAM: Normal sensorium, cranial nerves II-XII grossly intact, normal speech, no gross weakness of arms, no gross weakness of legs. MEDICAL DECISION MAKING: Patient is a 79-year-old male who presents to the above-stated complaint. IV was established and blood work is obtained. Labs showed no significant leukocytosis or anemia. BMP normal with LFTs, bilirubin, and troponin was negative. Lipase was normal. COVID flu and RSV was negative. Chest x-ray was unremarkable. Patient was placed on 4 to 5 L nasal cannula throughout the entire stay. Was given an hour-long DuoNeb and combination with steroids. Discussed case with hospitalist for further evaluation management treatment. Consults/Care Managements Discussions: Per MDM Triage Nursing notes reviewed. Limited review of prior medical records performed Vital Signs: reviewed and remarkable for no significant abnormalities Differential diagnosis: Cardiac ischemia, aortic dissection, pulmonary embolism, pneumothorax, pneumonia, pericarditis, myocarditis, esophageal rupture, GERD, cholecystitis, pancreatitis, musculoskeletal, as well as other pathologies. ER treatment provided: See below Diagnostics interpreted by me include EKG and cardiac monitoring as listed below: -Cardiac Monitoring: An order was placed for continuous cardiac monitoring. The monitor shows a rate of 90 with sinus rhythm. -ECG: Sinus rhythm rate 96 Right axis Right bundle branch block QTc 520 -Laboratory studies:Interpreted by me as stated above in MDM and shown below. Imaging studies: Xrays: As interpreted by me: Portable AP upright lung view of the chest shows no focal return CTs show: none Procedures:none Critical Care: I have personally spent 33 minutes of critical care time in the direct management of this patient. This includes bedside care, interpretation of diagnostic studies, and testing, discussion with consultants, patient, and family members, and other required patient management activities. This 33 minutes is in excess of all separately billable procedures. Past Med/Surg History Problem List (Updated 08/29/25 @ 22:48 by Jeff Dominguez DO) Shortness of breath (Acute) COPD exacerbation (Acute) Acute hypoxic respiratory failure (Acute) Acute hypoxic respiratory failure Diabetes mellitus Acute exacerbation of chronic obstructive pulmonary disease (COPD) (Acute) Obstructive lung disease Excessive oral secretions H/O arterial ischemic stroke (Acute) Rotator cuff arthropathy of left shoulder Excessive cerumen in both ear canals Recurrent aspiration events Hypomagnesemia Chronic obstructive pulmonary disease 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 (02/2020) Benign localized prostatic hyperplasia with lower urinary tract symptoms (LUTS) HEYDI (obstructive sleep apnea) (09/2014) Paroxysmal SVT (supraventricular tachycardia) PAF (paroxysmal atrial fibrillation) PAC (premature atrial contraction) Seizure-like activity History of tobacco abuse Acquired deviated nasal septum 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, including canthus Acute blood loss anemia Acute embolic stroke (~02/2020) Multifocal pneumonia Hemoperitoneum Acute ischemic stroke Pulmonary embolism Arthritis Surgical History Status post insertion of percutaneous endoscopic gastrostomy (PEG) tube History of sinus surgery History of bronchoscopy PEG (percutaneous endoscopic gastrostomy) status (~12/2019) History of cardiac catheterization (~05/01/10) H/O knee surgery Family History Mother Heart disease Hypertension Father Emphysema, unspecified Hearing loss Grandfather Stroke Son Stroke Son Stroke, Onset Age: 52 Denies family history of Ovarian cancer Prostate cancer Breast cancer Lung cancer Colorectal cancer Cancer Asthma Social History Smoking Status: Former smoker Tobacco Type: Cigarettes Age Started Using Tobacco: 15; Age Quit Using Tobacco: 30; packs per day: 2; Cigarettes Per Day: 1.5 PPD; Second Hand Exposure: No; Do You Dip or Chew Tobacco: No; Hx Alcohol Use: No Hx Substance Use: No Preferred Language: Togolese Communication Ability: Effective Visual Impairment: No Limitations Hearing Ability: Use of Hearing Aid Day Habilitation Specialist Required: No Beliefs That Will Affect Care: None marital status: / Current Living Situation: Significant Other Current Living Situation Comment: with S/O current occupational status: retired 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 [employer] How many Children do You have: 1 other: Retired age 52 Feels Safe at Home: Yes Childhood Exposure to Second-Hand Smoke: Yes Diet: regular Diet Comment: regular caffeine: Yes during the past year weight has: remained stable Dental Care, Regularly: Yes Physical Activity Frequency: Does not Exercise Seatbelt Use: always Sunscreen Use: No Assistive Devices: Wheelchair and Other Allergies Allergies Allergy/AdvReac Type Severity Reaction Status Date / Time salmeterol Allergy Mild Hives Verified 05/27/25 10:56 Home Meds Home Medications Medication Instructions Recorded Confirmed acetaminophen 650 mg 650 mg PO Q8H PRN Pain 02/18/20 05/30/25 tablet,extended release (Tylenol Arthritis Pain) resveratrol 50 mg capsule 50 mg PO QAM 07/13/21 05/30/25 cholecalciferol (vitamin D3) 125 125 mcg PO QPM 07/25/21 05/30/25 mcg (5,000 unit) capsule coQ10 (ubiquinol) 200 mg capsule 200 mg PO QAM 07/25/21 05/30/25 polyethylene glycol 3350 17 17 g PO QAM 03/05/24 05/30/25 gram/dose oral powder (Miralax) albuterol sulfate 90 mcg/actuation 2 puff inhalation Q4H PRN 12/04/24 05/30/25 aerosol inhaler Shortness Of Breath atorvastatin 40 mg tablet 40 mg PO Q OTHER DAY 04/19/25 05/30/25 divalproex 500 mg tablet,extended 500 mg PO QAM 04/19/25 05/30/25 release 24 hr (Depakote ER) fish, borage, flaxseed oils-omega 1 cap PO QPM 04/19/25 05/30/25 3,6,9 comb no.1 1,200 mg capsule ([place] 3-6-9) [id number] C-Mn 500 1 cap PO BID 04/19/25 05/30/25 mg-400 mg capsule rivaroxaban 20 mg tablet (Xarelto) 20 mg PO QAM 04/19/25 05/30/25 guaifenesin 600 mg tablet, 600 mg PO DAILY 04/26/25 05/30/25 extended release 12 hr (Mucinex) melatonin 10 mg tablet 10 mg PO HS PRN sleep 04/26/25 05/30/25 vitamin B complex 1 tab PO QAM 04/26/25 05/30/25 sertraline 100 mg tablet 100 mg PO DAILY 05/21/25 05/30/25 docusate sodium 100 mg capsule 100 mg PO QAM 05/27/25 05/30/25 (Colace) Previous Rx's Medication Instructions Recorded fluticasone fur. 100 mcg-umeclid 1 inh inhalation QAM #180 ea 05/24/25 62.5 mcg-vilant 25 mcg inhalat.powder (Trelegy Ellipta) lidocaine 5 % topical patch 1 patch transdermal DAILY PRN Pain 05/24/25 #30 ea tramadol 50 mg tablet 50 mg PO Q6H PRN Pain #30 tabs 05/27/25 CPAP Machine #1 ea 06/08/25 ipratropium 0.5 mg-albuterol 3 mg 3 ml NEB QIDR PRN shortness of 08/04/25 (2.5 mg base)/3 mL nebulization breath or wheezing #360 mL soln omeprazole 40 mg capsule,delayed 40 mg PO DAILYBB #90 caps 08/04/25 release Results & Data (ED) Vital Signs Vital Signs - 24 hr 08/29/25 18:38 08/29/25 18:42 08/29/25 18:42 Temperature 36.8 C Temperature Source Oral Pulse Rate 96 H 96 H Pulse Rate [Apical] Respiratory Rate 20 Blood Pressure 129/89 Blood Pressure [Right Arm] Blood Pressure Mean 102 Blood Pressure Mean [Right Arm] Pulse Oximetry 97 Oxygen Delivery Method Nasal Cannula Nasal Cannula Oxygen Flow Rate 6 6 Sepsis Recent Fever Within 48 Hours No Sepsis New/Unexplained Change in Mental Status No Sepsis Action Taken by Nursing No Action Required 08/29/25 18:42 08/29/25 18:42 08/29/25 18:53 Temperature 36.8 C Temperature Source Oral Pulse Rate 96 H Pulse Rate [Apical] 96 H Respiratory Rate 20 20 Blood Pressure Blood Pressure [Right Arm] 129/89 Blood Pressure Mean Blood Pressure Mean [Right Arm] 102 Pulse Oximetry 98 97 97 Oxygen Delivery Method Nasal Cannula Nasal Cannula Nasal Cannula Oxygen Flow Rate 6 6 6 Sepsis Recent Fever Within 48 Hours Sepsis New/Unexplained Change in Mental Status Sepsis Action Taken by Nursing 08/29/25 19:00 Temperature Temperature Source Pulse Rate Pulse Rate [Apical] 96 H Respiratory Rate 22 Blood Pressure Blood Pressure [Right Arm] 147/83 H Blood Pressure Mean Blood Pressure Mean [Right Arm] 104 Pulse Oximetry 98 Oxygen Delivery Method Nebulizer Oxygen Flow Rate Sepsis Recent Fever Within 48 Hours Sepsis New/Unexplained Change in Mental Status Sepsis Action Taken by Nursing Laboratory Data 08/29/25 19:37 08/29/25 19:37 Lab Results 08/29/25 Range/Units 19:37 WBC 9.38 (4.8-10.8) K/ul RBC 4.68 L (4.70-6.10) M/uL Hgb 13.3 L (14.0-18.0) g/dl Hct 39.9 L (42.0-52.0) % MCV 85.3 (80.0-100.0) fL MCH 28.4 (25.0-34.0) pg MCHC 33.3 (32.0-36.0) g/dL RDW Std Deviation 44.6 (36.4-46.3) fL RDW Coeff of [place] 14.4 (11.5-14.5) % Plt Count 205 (130-400) K/uL MPV 10.2 (9.4-12.4) fL Immature Gran % (Auto) 0.3 % Neut % (Auto) 76.3 % Lymph % (Auto) 13.6 % [place] % (Auto) 3.2 % Eos % (Auto) 6.0 % Baso % (Auto) 0.6 % Neut # (Auto) 7.15 H (1.40-6.50) K/uL Lymph # (Auto) 1.28 (1.20-3.40) K/uL [place] # (Auto) 0.30 (0.11-0.59) K/uL Eos # (Auto) 0.56 H (0.00-0.50) K/uL Baso # (Auto) 0.06 (0.00-0.20) K/uL Immature Gran # (Auto) 0.03 (0.01-0.20) K/uL Sodium 143 (136-145) mmol/L Potassium 3.6 (3.5-5.1) mmol/L Chloride 108 H (98-107) mmol/L Carbon Dioxide 28 (21-32) mmol/L Anion Gap 7 (3-11) BUN 16 (6-23) mg/dl Creatinine 0.80 (0.6-1.4) mg/dl Est Cr Clr Drug Dosing 81.9 ml/min eGFR 90.02 BUN/Creatinine Ratio 20.0 (10-20) Glucose 157 H (70-99(Fasting)) mg/dl Calcium 9.0 (8.6-10.3) mg/dl Magnesium 1.8 (1.7-2.4) mg/dl Total Bilirubin 0.8 (0.2-1.0) mg/dl AST 15 (13-39) U/L ALT 11 (7-52) U/L Alkaline Phosphatase 65 (34-104) U/L Troponin I High Sens 16.7 (0-20) pg/ml Total Protein 6.2 (6.0-8.3) gm/dl Albumin 3.8 (3.4-5.0) gm/dl Globulin 2.4 L (2.5-4.0) gm/dl Albumin/Globulin Ratio 1.6 (0.9-2) Lipase 4 L (11-82) U/L Administered Medications Discontinued Medications Albuterol (Albut/Ipratrop 3mg/0.5mg Neb 3 Ml Vial) 12 ml NEB ONE ONE; Protocol Stop: 08/29/25 18:50 Last Admin: 08/29/25 18:58 Dose: 12 ml Documented By: avel Methylprednisolone (Methylprednisolone 125 Mg/2 Ml Vial) 125 mg IV NOW STA Stop: 08/29/25 18:50 Last Admin: 08/29/25 19:03 Dose: 125 mg Documented By: avel Imaging Data Radiologist's Impression: Chest X-Ray 08/29/25 18:49 COMPARISON: 05/30/2005 FINDINGS: HEART: Normal in size. LUNGS: No focal consolidation, pleural effusion, or vascular congestion. MEEDIASTINUM: Unremarkable. BONES: Intact. OTHER: Mild elevation of the right hemidiaphragm. IMPRESSION: No acute disease. Electronically signed by Nydia Drake 08-29-2025 7:30 PM Discharge Plan Visit Data Chief Complaint: Shortness of Breath/Dyspnea Stated Complaint: SOB ED Provider: Jeff Dominguez Discharge Problem: Acute hypoxic respiratory failure, COPD exacerbation, Shortness of breath Patient Disposition: Admitted As Inpatient Condition: Fair
[2025-08-29] MEDS: ALBUT/IPRATROP 3MG/0.5MG NEB 3 ML VIAL NEB ONE (18:58)
--- NOTE | 2025-08-29 19:31 | XRay Report ---
COMPARISON: 05/30/2005 FINDINGS: HEART: Normal in size. LUNGS: No focal consolidation, pleural effusion, or vascular congestion. MEEDIASTINUM: Unremarkable. BONES: Intact. OTHER: Mild elevation of the right hemidiaphragm. IMPRESSION: No acute disease. Electronically signed by Nydia Drake 08-29-2025 7:30 PM
[2025-08-29 20:11] LABS: Hematocrit (blood only) 39.9 % (42.0-52.0); Hemoglobin 13.3 g/dl (14.0-18.0); Immature Granulocytes # (auto) 0.03 K/uL (0.01-0.20); Immature Granulocytes % (auto) 0.3 %; Mean Corpuscular Hemoglobin 28.4 pg (25.0-34.0); Mean Corpuscular Volume 85.3 fL (80.0-100.0); Platelet Count 205 K/uL (130-400); RDW Standard Deviation 44.6 fL (36.4-46.3); Red Blood Count 4.68 M/uL (4.70-6.10); White Blood Count 9.38 K/ul (4.8-10.8)
[2025-08-29 20:29] LABS: Alanine Aminotransferase 11.0 U/L (7-52); Albumin Globulin Ratio 1.6 (0.9-2); Albumin Level 3.8 gm/dl (3.4-5.0); Alkaline Phosphatase 65.0 U/L (34-104); Anion Gap 7.0 (3-11); Bilirubin,Total 0.8 mg/dl (0.2-1.0); Blood Urea Nitrogen 16.0 mg/dl (6-23); Calcium 9.0 mg/dl (8.6-10.3); Carbon Dioxide 28.0 mmol/L (21-32); Chloride 108.0 mmol/L (98-107); Creatinine Clr Calc Pharmacy 81.9 ml/min; Globulin 2.4 gm/dl (2.5-4.0); Glucose 157.0 mg/dl (70-99(Fasting)); Lipase 4.0 U/L (11-82); Potassium 3.6 mmol/L (3.5-5.1); Sodium 143.0 mmol/L (136-145); Total Protein 6.2 gm/dl (6.0-8.3)
--- NOTE | 2025-08-29 20:42 | History & Physical Report ---
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 Patient presented via EMS due to a cough and shortness of breath that has been gradually worsening since Saturday, he was found to be 82% on room air and started on 6 L nasal cannula. He is being admitted for COPD exacerbation as well as acute hypoxic respiratory failure. #acute COPD exacerbation/acute hypoxic respiratory failure/hypomagnesemia - CXR negative for acute changes. On 6 LNC at time of admission, denies oxygen use at baseline. Laboratories unremarkable. COVID/flu/RSV swab ordered Magnesium ordered, 1.8 1 G IV mag ordered; trend daily - Continue home inhalers - azithromycin 500 mg IV on admission, continue with 250 mg IV daily - sputum cultures ordered - given Solu-Medrol 125 mg IV in the ED, continue with Solu-Medrol 40 twice daily, attempt to titrate down when clinically indicated - duo-nebs QID nahun and q2hr prn - flutter valve QID, incentive spirometry, Mucinex - patient clinically dry 1L LR at 80 mL/hour - oxy prn for O2 goal 88-92%, wean oxygen as tolerated #Hx arterial ischemic stroke/bulbar dysfunction/oropharyngeal dysphagia - Embolic stroke 02/2020 with residual left sided deficits. Patient does have history of recurrent aspiration events resulting in aspiration pneumonia - CXR negative for acute changes at time of admission. - easy to chew diet Aspiration precautions - Continue home statin And Xarelto #Prediabetes - A1c on 04/2025 = 6.5%. No home diabetic medications. #Myoclonic disorder - Continue Depakote #GERD - continue PPI #Depression - continue Zoloft #HEYDI - CPAP HS #history of PE/factor VIII continue home Xarelto #paroxysmal A-fib continue Xarelto, no rate or rhythm control agents given history of borderline bradycardia. 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 Patient presented via EMS due to a cough and shortness of breath that has been gradually worsening since Saturday, he was found to be 82% on room air and started on 6 L nasal cannula. He is being admitted for COPD exacerbation as well as acute hypoxic respiratory failure. Patient seen at bedside, undergoing a 1 hour nebulizer. He stated he has had a cough with clear sputum production and shortness of breath that has been gradually worsening since Saturday. He also endorses some wheezing. He denies any chest pain. He denies any oxygen use at baseline, does use CPAP at bedtime for sleep apnea. He denies any sick contacts. He denies any nicotine use, occasionally drinks alcohol. He stated he took all of his home medications today. Noted that EMS gave 2 DuoNeb treatments, Solu-Medrol 125 mg IV, and started patient on 6 L NC. Previous medical records reviewed- Patient has had numerous admissions this year for COPD exacerbations and pneumonia. Patient was admitted from 05/21/2025 to 05/24/2025 for COPD exacerbation secondary to humanmetapneumovirus; He was treated with prednisone and doxycycline. Patient was also admitted from 04/19 to 04/22 due to aspiration pneumonia, acute COPD exacerbation, and human metapneumovirus. Patient was admitted from 12/04 to 12/08 due to acute influenza A pneumonia and recurrent aspiration pneumonia. Allergies Allergy/AdvReac Type Severity Reaction Status Date / Time salmeterol Allergy Mild Hives Verified 05/27/25 10:56 Home Medications Medication Instructions Recorded Confirmed Type acetaminophen 650 mg 650 mg PO Q8H PRN Pain 02/18/20 05/30/25 History tablet,extended release (Tylenol Arthritis Pain) resveratrol 50 mg capsule 50 mg PO QAM 07/13/21 05/30/25 History cholecalciferol (vitamin D3) 125 125 mcg PO QPM 07/25/21 05/30/25 History mcg (5,000 unit) capsule coQ10 (ubiquinol) 200 mg capsule 200 mg PO QAM 07/25/21 05/30/25 History polyethylene glycol 3350 17 17 g PO QAM 03/05/24 05/30/25 History gram/dose oral powder (Miralax) albuterol sulfate 90 mcg/actuation 2 puff inhalation Q4H PRN 12/04/24 05/30/25 History aerosol inhaler Shortness Of Breath atorvastatin 40 mg tablet 40 mg PO Q OTHER DAY 04/19/25 05/30/25 History fish, borage, flaxseed oils-omega 1 cap PO QPM 04/19/25 05/30/25 History 3,6,9 comb no.1 1,200 mg capsule ([place] 3-6-9) ssfcuipdczo-nxlezhzzr-ife C-Mn 500 1 cap PO BID 04/19/25 05/30/25 History mg-400 mg capsule rivaroxaban 20 mg tablet (Xarelto) 20 mg PO QAM 04/19/25 05/30/25 History guaifenesin 600 mg tablet, 600 mg PO DAILY 04/26/25 05/30/25 History extended release 12 hr (Mucinex) melatonin 10 mg tablet 10 mg PO HS PRN sleep 04/26/25 05/30/25 History vitamin B complex 1 tab PO QAM 04/26/25 05/30/25 History sertraline 100 mg tablet 100 mg PO DAILY 05/21/25 05/30/25 History fluticasone fur. 100 mcg-umeclid 1 inh inhalation QAM #180 ea 05/24/25 05/30/25 Rx 62.5 mcg-vilant 25 mcg inhalat.powder (Trelegy Ellipta) lidocaine 5 % topical patch 1 patch transdermal DAILY PRN Pain 05/24/25 05/30/25 Rx #30 ea docusate sodium 100 mg capsule 100 mg PO QAM 05/27/25 05/30/25 History (Colace) tramadol 50 mg tablet 50 mg PO Q6H PRN Pain #30 tabs 05/27/25 05/30/25 Rx CPAP Machine #1 ea 06/08/25 Rx ipratropium 0.5 mg-albuterol 3 mg 3 ml NEB QIDR PRN shortness of 08/04/25 Rx (2.5 mg base)/3 mL nebulization breath or wheezing #360 mL soln omeprazole 40 mg capsule,delayed 40 mg PO DAILYBB #90 caps 08/04/25 Rx release divalproex 500 mg tablet,extended 500 mg PO QAM #30 tabs 08/30/25 Rx release 24 hr (Depakote ER) Past Med/Surg History Problem List (Updated 08/29/25 @ 22:48 by Jeff Dominguez DO) Shortness of breath (Acute) COPD exacerbation (Acute) Acute hypoxic respiratory failure (Acute) Acute hypoxic respiratory failure Diabetes mellitus Acute exacerbation of chronic obstructive pulmonary disease (COPD) (Acute) Obstructive lung disease Excessive oral secretions H/O arterial ischemic stroke (Acute) Rotator cuff arthropathy of left shoulder Excessive cerumen in both ear canals Recurrent aspiration events Hypomagnesemia Chronic obstructive pulmonary disease 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 (02/2020) Benign localized prostatic hyperplasia with lower urinary tract symptoms (LUTS) HEYDI (obstructive sleep apnea) (09/2014) Paroxysmal SVT (supraventricular tachycardia) PAF (paroxysmal atrial fibrillation) PAC (premature atrial contraction) Seizure-like activity History of tobacco abuse Acquired deviated nasal septum 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, including canthus Acute blood loss anemia Acute embolic stroke (~02/2020) Multifocal pneumonia Hemoperitoneum Acute ischemic stroke Pulmonary embolism Arthritis Surgical History Status post insertion of percutaneous endoscopic gastrostomy (PEG) tube History of sinus surgery History of bronchoscopy PEG (percutaneous endoscopic gastrostomy) status (~12/2019) History of cardiac catheterization (~05/01/10) H/O knee surgery Family History Mother Heart disease Hypertension Father Emphysema, unspecified Hearing loss Grandfather Stroke Son Stroke Son Stroke, Onset Age: 52 Denies family history of Ovarian cancer Prostate cancer Breast cancer Lung cancer Colorectal cancer Cancer Asthma Social History Smoking Status: Former smoker Tobacco Type: Cigarettes Age Started Using Tobacco: 15; Age Quit Using Tobacco: 30; packs per day: 2; Cigarettes Per Day: 1.5 PPD; Second Hand Exposure: No; Do You Dip or Chew Tobacco: No; Hx Alcohol Use: No Hx Substance Use: No Preferred Language: Georgian Communication Ability: Effective Visual Impairment: No Limitations Hearing Ability: Use of Hearing Aid Regional Trainer Required: No Beliefs That Will Affect Care: None marital status: / Current Living Situation: Spouse Current Living Situation Comment: with S/O current occupational status: retired 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 [employer] How many Children do You have: 1 other: Retired age 52 Feels Safe at Home: Yes Safety Concerns: Feels Safe At This Time Childhood Exposure to Second-Hand Smoke: Yes Diet: regular Diet Comment: regular caffeine: Yes during the past year weight has: remained stable Dental Care, Regularly: Yes Physical Activity Frequency: Does not Exercise Seatbelt Use: always Sunscreen Use: No Assistive Devices: CPAP, Hospital Bed, Lift Chair, Mechanical Lift and Nebulizer Review of Systems Review of Systems: see HPI Physical Exam Physical Exam: The patient is awake, alert and oriented 3, well developed and well nourished, normocephalic and atraumatic, in no acute distress. Non-toxic appearing. HEENT- EOMI, mucous membranes moist. Hearing grossly intact. Heart-normal S1 and S2. No murmurs, rubs or gallops. Lungs-wheezing bilaterally, no respiratory distress, no accessory muscle use. Abdomen-normal bowel sounds and soft. No ascites noted. Non-tender. Extremities- no clubbing, cyanosis, or edema. Rheumatologic-normal range of motion. Psychiatric-normal affect. Results & Data Results & Data Vital Signs (Past 12 Hours) Vital Signs Temp Pulse Pulse Resp BP BP Pulse Ox 08/29/25 19:00 96 H 22 147/83 H 98 08/29/25 18:53 96 H 20 97 08/29/25 18:42 36.8 C 96 H 20 129/89 97 08/29/25 18:42 98 08/29/25 18:42 08/29/25 18:42 36.8 C 96 H 20 129/89 97 08/29/25 18:38 96 H O2 Del Method O2 Flow Rate 08/29/25 19:00 Nebulizer 08/29/25 18:53 Nasal Cannula 6 08/29/25 18:42 Nasal Cannula 6 08/29/25 18:42 Nasal Cannula 6 08/29/25 18:42 Nasal Cannula 6 08/29/25 18:42 Nasal Cannula 6 08/29/25 18:38 Laboratory Results reviewed CBC and CMP Ordered magnesium, COVID/flu/RSV swab Diagnostic Findings reviewed CXR Medications Administered EMS DuoNeb x 2, Solu-Medrol 125 mg IV EDSolu-Medrol 125 mg IV, 1 hour DuoNeb ECG Additional Comments: NSR Code Status & VTE Plan Code Status DNR/DNI VTE Prophylaxis Plan VTE Prophylaxis will be ordered: Yes Supervising Physician Co-Signing Physician Notes Attending addendum: I have physically seen this patient, have supervised the SEE's activities, and agree with the H&P unless as otherwise noted. Assessment and Plan: The patient is a 39-year-old male with a past medical history including COPD, HEYDI on CPAP, embolic stroke 4-20 with residual left side deficits and dysphagia, PE, factor VIII, PAF, hypertension, hyperlipidemia, prediabetes mellitus, myoclonic disorder, and CAD s/p cardiac stent. He presented to the emergency department via EMS due to a cough and shortness of breath that have been gradually worsening over the past 4-5 days. he was found to be 82% on room air, and started on 6 L nasal cannula. [facility] for [facility] for COPD exacerbation with acute respiratory failure with hypoxia. Acute COPD exacerbation/acute respiratory failure with hypoxia- Admit to monitored bed COVID/flu/RSV testing ordered Continue usual home inhalers Azithromycin 500 mg IV today, Vantin 50 mg IV daily Sputum culture and sensitivity Given Solu-Medrol 125 mg IV in ED, will continue 40 mg IV every 12 hours Duonebs every 4 hours while awake and every 2 hours when necessary. Flutter valve 4 times daily Incentive spirometry Mucinex 600 mg p.o. twice daily LR at 80 mL/h x 1 L Nasal cannula oxygen, titrate to keep pulse ox 88-92% history of embolic CVA with residual left-sided deficits/aspiration- Aspiration precautions Continuing Atorvastatin and Xarelto remaining orders and notations as noted PG Care Time/CCT Total # of Minutes Spent Total Time Spent with Patient: Total time spent is greater than 50% in coordination of care (as documented) at patient's floor/unit and/or counseling patient: Coding Level of Care Code 22990 INT INP/OBS CARE 3/75MIN Diagnoses Acute exacerbation of chronic obstructive pulmonary disease (COPD) J44.1 Acute hypoxic respiratory failure J96.01 Hypomagnesemia E83.42 H/O arterial ischemic stroke Z86.73
[2025-08-29 20:48] LABS: Magnesium 1.8 mg/dl (1.7-2.4)
[2025-08-29 22:09] LABS: Influenza A virus by PCR Negative (Neg); Influenza B virus by PCR Negative (Neg); SARS CoV2 RNA(COVID-19) Ceph NEGATIVE (Negative)
[2025-08-29] MEDS ORDERED: ACETAMINOPHEN 325 MG TAB PO PRN (22:33)
[2025-08-29] MEDS ORDERED: ALBUT/IPRATROP 3MG/0.5MG NEB 3 ML VIAL NEB PRN (22:33)
[2025-08-29] MEDS ORDERED: MELATONIN 3 MG TAB PO PRN (22:33)
[2025-08-29] MEDS ORDERED: ONDANSETRON INJ 2 MG/ML 2 ML VIAL IV PRN (22:33)
[2025-08-29] MEDS: AZITHROMYCIN 500 MG/255 ML BAG IV ONE (22:52)
[2025-08-29] MEDS: MAGNESIUM SULFATE / D5W 1 GM/100 ML BAG IV ONE (22:52)
[2025-08-29] MEDS: LACTATED RINGER'S 1,000 ML IV SCH (22:52)
[2025-08-30] MEDS: ALBUT/IPRATROP 3MG/0.5MG NEB 3 ML VIAL ONE (00:04)
[2025-08-30] MEDS: ALBUT/IPRATROP 3MG/0.5MG NEB 3 ML VIAL NEB SCH (00:05)
[2025-08-30] MEDS: guaiFENesin 600 MG TABCR PO SCH (00:17)
[2025-08-30 06:13] LABS: Hematocrit (blood only) 37.3 % (42.0-52.0); Hemoglobin 11.9 g/dl (14.0-18.0); Immature Granulocytes # (auto) 0.03 K/uL (0.01-0.20); Immature Granulocytes % (auto) 0.5 %; Mean Corpuscular Hemoglobin 27.2 pg (25.0-34.0); Mean Corpuscular Volume 85.2 fL (80.0-100.0); Platelet Count 210 K/uL (130-400); RDW Standard Deviation 44.8 fL (36.4-46.3); Red Blood Count 4.38 M/uL (4.70-6.10); White Blood Count 6.48 K/ul (4.8-10.8)
[2025-08-30 07:00] LABS: Anion Gap 9.0 (3-11); Blood Urea Nitrogen 17.0 mg/dl (6-23); Calcium 8.8 mg/dl (8.6-10.3); Carbon Dioxide 26.0 mmol/L (21-32); Chloride 107.0 mmol/L (98-107); Creatinine Clr Calc Pharmacy 95.3 ml/min; Glucose 179.0 mg/dl (70-99(Fasting)); Magnesium 2.0 mg/dl (1.7-2.4); Potassium 3.8 mmol/L (3.5-5.1); Sodium 142.0 mmol/L (136-145)
[2025-08-30] MEDS ORDERED: NON-FORMULARY MEDICATION (Fluticasone-Umeclidin-Vilanter [Trelegy Ellipta] 100-62.5-25 mcg INH SCH (09:00)
[2025-08-30] MEDS: FLUTICASONE FUROATE 100MCG 14 PUFFS/INHALER INH SCH (09:48)
[2025-08-30] MEDS: UMECLIDINIUM/VILANTEROL 62.5/25MCG 7 PUFFS/INHALER INH SCH (09:48)
--- NOTE | 2025-08-30 10:43 | Hospitalist Progress Note ---
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 Patient presented via EMS due to a cough and shortness of breath that has been gradually worsening since Saturday, he was found to be 82% on room air and started on 6 L nasal cannula. He is being admitted for COPD exacerbation as well as acute hypoxic respiratory failure. #acute COPD exacerbation/acute hypoxic respiratory failure/aspiration pneumonitis CXR negative for acute changes. On 6 LNC at time of admission, denies oxygen use at baseline. CBC/ BMP stable. BNP 107. Mag stable at 1.8 COVID/flu/RSV negative Continue home inhalers azithromycin 500 mg IV on admission, continue with 250 mg IV daily sputum cultures ordered Solu-Medrol 40 twice daily, attempt to titrate down when clinically indicated duo-nebs QID nahun and q2hr prn flutter valve QID, incentive spirometry, Mucinex oxy prn for O2 goal 88-92%, wean oxygen as tolerated Speech therapy consulted, discussed via phone 08/30 --> given worsening aspiration, diet changed to minced & moist & thick (honey) liquids. concern for safe feeding at home. Consider palliative care consult & chest CT when pt can tolerate. #Hx arterial ischemic stroke/bulbar dysfunction Embolic stroke 02/2020 with residual left sided deficits. Continue home statin And Xarelto #Prediabetes - A1c on 04/2025 = 6.5%. No home diabetic medications. #Myoclonic disorder - Continue Depakote #GERD - continue PPI #Depression - continue Zoloft #HEYDI - CPAP HS #history of PE/factor VIII continue home Xarelto #paroxysmal A-fib continue Xarelto, no rate or rhythm control agents given history of borderline bradycardia. VTE ppx: Continue home Xarelto Code: DNR/DNI updated patients significant other at bedside 08/30. Admission and Anticipated Discharge Date Admission Date: August 29, 2025 Supervising Physician Co-Signing Physician Notes The patient was not seen by me. The chart was reviewed. Case discussed with NATHAN Esteves. Agree with assessment and plan Subjective Kei was seen & examined this morning. He denied any complaints but remains on 2L of oxygen. Earlier today he had an abrupt shortness of breath & required his CPAP on which has been weaned off. Swallowing difficulties have appeared to worsen as well per discussion with nursing & speech therapy. Physical Exam Physical Exam: General: NAD, VS: BP 122/74; P78; R15; T36.7C Resp: normal respiratory effort, wheezing/rhonchi in upper lung serrano. diminished lung sounds. CV: RRR, no murmur Extremities: no edema Neuro: Alert, oriented to person & place Skin: intact, no lesions noted Results & Data Results & Data Vital Signs (Past 12 Hours) Vital Signs Temp Pulse Pulse Resp BP BP Pulse Ox 08/30/25 07:34 88 26 H 120/66 98 08/30/25 07:30 36.8 C 88 25 H 120/66 99 08/30/25 07:05 110 H 40 H 98 08/30/25 07:05 110 H 40 H 98 08/30/25 07:00 115 H 41 H 191/127 H 100 08/30/25 02:48 36.9 C 85 20 128/63 99 08/30/25 01:44 93 H 08/30/25 00:10 92 H 20 97 08/30/25 00:05 93 H 24 99 O2 Del Method O2 Flow Rate 08/30/25 07:34 Nasal Cannula, CPAP 2 08/30/25 07:30 CPAP 08/30/25 07:05 CPAP 2 08/30/25 07:05 2 08/30/25 07:00 Nasal Cannula, BiPAP 2 08/30/25 02:48 CPAP 08/30/25 01:44 08/30/25 00:10 Nasal Cannula 2 08/30/25 00:05 2 PG Care Time/CCT Total # of Minutes Spent Total Time Spent with Patient: Total time spent is greater than 50% in coordination of care (as documented) at patient's floor/unit and/or counseling patient: Coding Level of Care Code 21430 SUB INP/OBS CARE 3/50MIN Diagnoses Acute exacerbation of chronic obstructive pulmonary disease (COPD) J44.1 Acute hypoxic respiratory failure J96.01 Hypomagnesemia E83.42 H/O arterial ischemic stroke Z86.73
[2025-08-30] MEDS: DIVALPROEX EXTENDED RELEASE 500 MG TAB PO SCH (13:16)
[2025-08-30] MEDS: SERTRALINE HCL 100 MG TABLET PO SCH (13:17)
[2025-08-30] MEDS: DOCUSATE SODIUM 100 MG CAP PO SCH (13:23)
[2025-08-30] MEDS: RIVAROXABAN 20 MG TAB PO SCH (16:45)
--- NOTE | 2025-08-30 17:09 | Electrocardiogram Report ---
Test Reason : Blood Pressure : */* mmHG Vent. Rate : 96 BPM Atrial Rate : 96 BPM P-R Int : 206 ms QRS Dur : 146 ms QT Int : 412 ms P-R-T Axes : 42 103 28 degrees QTcB Int : 520 ms Sinus rhythm with Premature atrial complexes Right bundle branch block Abnormal ECG When compared with ECG of 30-May-2025 12:07, Vent. rate has increased by 36 bpm Confirmed by Hakeem Penaloza ([id number]) on 08/30/2025 5:09:33 PM Referred By: REFERRED SELF Confirmed By: Hakeem Penaloza
[2025-08-30] MEDS: AZITHROMYCIN 250 MG in DEXTROSE 5% 250 ML IV SCH (20:23)
[2025-08-30] MEDS: ATORVASTATIN 40 MG TAB PO SCH (20:27)
[2025-08-31 06:05] LABS: Hematocrit (blood only) 37.3 % (42.0-52.0); Hemoglobin 11.9 g/dl (14.0-18.0); Mean Corpuscular Hemoglobin 27.2 pg (25.0-34.0); Mean Corpuscular Volume 85.2 fL (80.0-100.0); Platelet Count 190 K/uL (130-400); RDW Standard Deviation 44.7 fL (36.4-46.3); Red Blood Count 4.38 M/uL (4.70-6.10); White Blood Count 16.33 K/ul (4.8-10.8)
[2025-08-31 06:26] LABS: Anion Gap 7.0 (3-11); Calcium 8.8 mg/dl (8.6-10.3); Carbon Dioxide 26.0 mmol/L (21-32); Chloride 108.0 mmol/L (98-107); Potassium 4.8 mmol/L (3.5-5.1); Sodium 141.0 mmol/L (136-145)
[2025-08-31 06:33] LABS: Blood Urea Nitrogen 23.0 mg/dl (6-23); Creatinine Clr Calc Pharmacy 84.2 ml/min; Glucose 165.0 mg/dl (70-99(Fasting))
--- NOTE | 2025-08-31 11:42 | Hospitalist Progress Note ---
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 Patient presented via EMS due to a cough and shortness of breath that has been gradually worsening since Saturday, he was found to be 82% on room air and started on 6 L nasal cannula. He is being admitted for COPD exacerbation as well as acute hypoxic respiratory failure. #acute COPD exacerbation/acute hypoxic respiratory failure/aspiration pneumonitis CXR negative for acute changes. On 6 LNC at time of admission, denies oxygen use at baseline. CBC w/ bump of WBC to 16.33 likely secondary to steroids given clinical improvement. BMP stable. BNP 107. Mag stable at 1.8 COVID/flu/RSV negative Continue home inhalers azithromycin 500 mg IV on admission, continue with 250 mg IV daily sputum cultures ordered Solu-Medrol 40 twice daily, attempt to titrate down when clinically indicated duo-nebs QID nahun and q2hr prn flutter valve QID, incentive spirometry, Mucinex oxy prn for O2 goal 88-92%, wean oxygen as tolerated, currently on 2L Speech therapy consulted, discussed 08/31 --> repeat Video swallow study on 08/31 went well. Requires OOB to chair for meals. More supervision at meals,. Diet changed to soft bite-sized w/ mildly thick liquids (nectar). Goals of care conversation held, please see ACP from 08/31. --> pt to go home on hospice 09/02. #GERD Has had complaints of globus sensation in esophagus + regurgitation while attempting to eat in bed increase PPI to BID #Hx arterial ischemic stroke/bulbar dysfunction Embolic stroke 02/2020 with residual left sided deficits. Continue home statin And Xarelto #Prediabetes - A1c on 04/2025 = 6.5%. No home diabetic medications. #Myoclonic disorder - Continue Depakote #Depression - continue Zoloft #HEYDI - CPAP HS #history of PE/factor VIII continue home Xarelto #paroxysmal A-fib continue Xarelto, no rate or rhythm control agents given history of borderline bradycardia. VTE ppx: Continue home Xarelto Code: DNR/DNI Updated patients family & significant other at bedside 08/31. Discussed w/ CM & speech therapy 08/31 Admission and Anticipated Discharge Date Admission Date: August 29, 2025 Supervising Physician Co-Signing Physician Notes The patient was not seen by me. The chart was reviewed. Case discussed with NATHAN Esteves. Agree with assessment and plan Subjective Kei was seen & examined this afternoon. He reports he is feeling okay today. Denies any SOB or CP. Family at bedside, discussed home w/ hospice options. Physical Exam Physical Exam: General: NAD, VS: BP 113/68; P70; R17; T36.4C Resp: normal respiratory effort, lungs scant wheezing CV: RRR, no murmur Extremities: no edema Neuro: A&O x3, Skin: intact, no lesions noted Results & Data Results & Data Vital Signs (Past 12 Hours) Vital Signs Temp Pulse Pulse Resp BP Pulse Ox O2 Del Method 08/31/25 11:33 64 16 95 Nasal Cannula 08/31/25 10:26 Nasal Cannula 08/31/25 07:50 36.4 C L 75 22 132/64 94 Nasal Cannula 08/31/25 07:29 73 14 98 Nasal Cannula 08/31/25 07:08 60 08/31/25 03:41 36.5 C 76 18 140/74 97 Nasal Cannula O2 Flow Rate 08/31/25 11:33 2 08/31/25 10:26 2 08/31/25 07:50 2 08/31/25 07:29 2 08/31/25 07:08 08/31/25 03:41 2 PG Care Time/CCT Total # of Minutes Spent Total Time Spent with Patient: Total time spent is greater than 50% in coordination of care (as documented) at patient's floor/unit and/or counseling patient: Coding Level of Care Code 92268 SUB INP/OBS CARE 3/50MIN Diagnoses Acute exacerbation of chronic obstructive pulmonary disease (COPD) J44.1 Acute hypoxic respiratory failure J96.01 Hypomagnesemia E83.42 H/O arterial ischemic stroke Z86.73
--- NOTE | 2025-08-31 14:54 | Advance Care Plan Prog Note ---
Advanced Care Planning Note Date of Discussion August 31, 2025 ACP Discussion Diagnoses requiring ACP discussion: COPD, recurrent aspiration pneumonitis. A [id number] discussion with the patient, patients son, and his significant other regarding the patient's advanced care planning took place during this hospitalization on the above date. The discussion included the explanation and discussion of advance directives and associated forms/documents, as well as the patient's current code status. We also discussed at length the patient's medical conditions (both acute and chronic), general prognosis, treatment options, and goals of care. The following summarizes the discussion: Following Kei's video swallowing study a conversation took place between family and myself. We did discuss the fact that Kei has been having ongoing aspiration issues for the last 5 years. Discussion of the fact that he can aspirated at any time and it can be difficult to prevent aspiration. Discussed that this condition has caused him to be re- hospitalized frequently. Discussed that goals of care at this time are to keep him comfortable and let him have the best quality of life that he can at this time. Discussed with Tammy the ongoing care at home. At this time the family and Kei is agreeable that the goal for Kei is to remain comfortable at home and keep him out of the hospital as much as possible. The patient is a DNR/DNI. Home with hospice has been discussed and the plan is for him to return home on 09/02 with these services. Status Resuscitation Status DNR/DNI No Resuscitation Total Time I spent a total of 35 minutes was spent on this discussion, including counseling, answering questions, and completing, if any, pertinent advanced care planning forms/documents.
--- NOTE | 2025-08-31 15:07 | Fluoroscopy Report ---
FL video swallow CLINICAL HISTORY: assess ability to swallow. TECHNIQUE: Video fluoroscopic evaluation of swallowing was performed in the AP and lateral projection s by the speech pathology staff. The patient is fed nectar-thick and thin liquid barium, a barium coa rose wafer, and barium pudding. FLUOROSCOPY TIME: 1 minute 38 seconds. COMPARISON: 01/05/2025 FINDINGS: There was aspiration with thin liquid when taking a large drink. No other aspiration seen. IMPRESSION: Aspiration with thin liquid. ACT 112: Negative or not required by law. Electronically signed by: Edwardo Chacko M.D. 08/31/2025 3:06 PM
[2025-09-01 09:10] LABS: Hematocrit (blood only) 39.9 % (42.0-52.0); Hemoglobin 12.9 g/dl (14.0-18.0); Mean Corpuscular Hemoglobin 27.2 pg (25.0-34.0); Mean Corpuscular Volume 84.2 fL (80.0-100.0); Platelet Count 207 K/uL (130-400); RDW Standard Deviation 44.1 fL (36.4-46.3); Red Blood Count 4.74 M/uL (4.70-6.10); White Blood Count 10.10 K/ul (4.8-10.8)
--- NOTE | 2025-09-01 10:47 | Hospitalist Progress Note ---
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 Patient presented via EMS due to a cough and shortness of breath that has been gradually worsening since Saturday, he was found to be 82% on room air and started on 6 L nasal cannula. He is being admitted for COPD exacerbation as well as acute hypoxic respiratory failure. #acute COPD exacerbation/acute hypoxic respiratory failure/aspiration pneumonitis CXR negative for acute changes. On 6 LNC at time of admission, denies oxygen use at baseline. CBC w/ no leukocytosis. BMP stable. BNP 107. Mag stable at 2.0 COVID/flu/RSV negative Continue home inhalers azithromycin 500 mg IV on admission, continue with 250 mg IV daily. sputum cultures ordered but were not given. Decreased Solu medrol to 40mg IV once daily duo-nebs QID nahun and q2hr prn flutter valve QID, incentive spirometry, Mucinex oxy prn for O2 goal 88-92%, wean oxygen as tolerated, currently on room air Speech therapy consulted, discussed 08/31 --> repeat Video swallow study on 08/31 went well. Requires OOB to chair for meals. More supervision at meals,. Diet changed to soft bite-sized w/ mildly thick liquids (nectar). Goals of care conversation held, please see ACP from 08/31. --> pt to go home on hospice 09/02. #GERD Has had complaints of globus sensation in esophagus + regurgitation while attempting to eat in bed increase PPI to BID #Hx arterial ischemic stroke/bulbar dysfunction Embolic stroke 02/2020 with residual left sided deficits. Continue home statin And Xarelto #Prediabetes - A1c on 04/2025 = 6.5%. No home diabetic medications. #Myoclonic disorder - Continue Depakote #Depression - continue Zoloft #HEYDI - CPAP HS #history of PE/factor VIII continue home Xarelto #paroxysmal A-fib continue Xarelto, no rate or rhythm control agents given history of borderline bradycardia. VTE ppx: Continue home Xarelto Code: DNR/DNI Updated patients significant other at bedside 09/01. Discussed w/ CM 09/01, anticipate discharge home 09/02 Admission and Anticipated Discharge Date Admission Date: August 29, 2025 Supervising Physician Co-Signing Physician Notes The patient was not seen by me. The chart was reviewed. Case discussed with NATHAN Esteves. Agree with assessment and plan Subjective Kei was seen & examined this afternoon with his significant other at bedside. He reports he is feeling okay today. States his cough is improving. Denies any CP or SOB. Physical Exam Physical Exam: General: NAD, VS: BP 144/74; P86; R18; T36.3C Resp: normal respiratory effort, lungs clear to auscultation CV: RRR, no murmur Extremities: no edema Neuro: alert, oriented to self and place Skin: intact, no lesions noted Results & Data Results & Data Vital Signs (Past 12 Hours) Vital Signs Temp Pulse Pulse Resp BP Pulse Ox O2 Del Method 09/01/25 09:09 36.4 C L 66 18 126/60 95 Room Air 09/01/25 07:30 Room Air 09/01/25 07:22 63 15 95 Room Air 09/01/25 03:30 36.7 C 56 L 18 112/62 96 CPAP 09/01/25 02:56 57 L 17 93 08/31/25 23:12 36.5 C 62 18 108/58 L 96 CPAP 08/31/25 22:58 72 19 91 O2 Flow Rate 09/01/25 09:09 09/01/25 07:30 09/01/25 07:22 09/01/25 03:30 09/01/25 02:56 2 08/31/25 23:12 08/31/25 22:58 2 PG Care Time/CCT Total # of Minutes Spent Total Time Spent with Patient: Total time spent is greater than 50% in coordination of care (as documented) at patient's floor/unit and/or counseling patient: Coding Level of Care Code 60801 SUB INP/OBS CARE 2/35MIN Diagnoses Acute exacerbation of chronic obstructive pulmonary disease (COPD) J44.1 Acute hypoxic respiratory failure J96.01 Hypomagnesemia E83.42 H/O arterial ischemic stroke Z86.73
--- NOTE | 2025-09-02 08:33 | Discharge Summary ---
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 Patient presented via EMS due to a cough and shortness of breath that has been gradually worsening since Saturday, he was found to be 82% on room air and started on 6 L nasal cannula. He is being admitted for COPD exacerbation as well as acute hypoxic respiratory failure. #acute COPD exacerbation/acute hypoxic respiratory failure/aspiration pneumonitis CXR negative for acute changes. On 6 LNC at time of admission, denies oxygen use at baseline. CBC w/ no leukocytosis. BMP stable. BNP 107. Mag stable at 2.0 COVID/flu/RSV negative Continue home inhalers s/p IV azithromycin inpatient, 1 additional dose prescribed outpatient to complete 5 day course. sputum cultures ordered but were not given. s/p IV Solu medrol, continue prednisone taper on discharge. Weaned to room air prior to dc Speech therapy consulted, discussed 08/31 --> repeat Video swallow study on went well. Requires OOB to chair for meals. More supervision at meals,. Diet changed to soft bite-sized w/ mildly thick liquids (nectar). Goals of care conversation held, please see ACP from 08/31. --> pt to go home on hospice 09/02. #GERD Has had complaints of globus sensation in esophagus + regurgitation while attempting to eat in bed increase PPI to BID #Hx arterial ischemic stroke/bulbar dysfunction Embolic stroke 02/2020 with residual left sided deficits. Continue home statin And Xarelto #Prediabetes - A1c on 04/2025 = 6.5%. No home diabetic medications. #Myoclonic disorder - Continue Depakote #Depression - continue Zoloft #HEYDI - CPAP HS #history of PE/factor VIII continue home Xarelto #paroxysmal A-fib continue Xarelto, no rate or rhythm control agents given history of borderline bradycardia. discharged home w/ hospice 09/02. 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 Patient presented via EMS due to a cough and shortness of breath that has been gradually worsening since Saturday, he was found to be 82% on room air and started on 6 L nasal cannula. He is being admitted for COPD exacerbation as well as acute hypoxic respiratory failure. Patient seen at bedside, undergoing a 1 hour nebulizer. He stated he has had a cough with clear sputum production and shortness of breath that has been gradually worsening since Saturday. He also endorses some wheezing. He denies any chest pain. He denies any oxygen use at baseline, does use CPAP at bedtime for sleep apnea. He denies any sick contacts. He denies any nicotine use, occasionally drinks alcohol. He stated he took all of his home medications today. Noted that EMS gave 2 DuoNeb treatments, Solu-Medrol 125 mg IV, and started patient on 6 L NC. Previous medical records reviewed- Patient has had numerous admissions this year for COPD exacerbations and pneumonia. Patient was admitted from 05/21/2025 to 05/24/2025 for COPD exacerbation secondary to humanmetapneumovirus; He was treated with prednisone and doxycycline. Patient was also admitted from 04/19 to 04/22 due to aspiration pneumonia, acute COPD exacerbation, and human metapneumovirus. Patient was admitted from 12/04 to 12/08 due to acute influenza A pneumonia and recurrent aspiration pneumonia. Discharge Exam General: NAD, VS: BP 110/62; P 63; R18; T36.7C Resp: normal respiratory effort Extremities: no edema Neuro: Alert, oriented to self. Skin: intact, no lesions noted Discharge Plan Discharge Items Patient Disposition: Hospice - Home Reason For Visit: COPD EXAST., HYPOXIA Discharge Diagnosis: COPD exacerbation Condition on Discharge: Fair Activity: Resume your previous activity Non-emergency contact: Primary Care Provider Call non-emergency contact if: you have any medication questions, your symptoms worsen and you have a fever Follow-up/Referrals: Baldemar Suarez DO [Primary Care Provider] - Diet: Carb Consistent or DM2 Diet Texture: Dental soft (bite-sized) Liquid Consistency: [place] thick Addtl Attending Provider Instructions: Mr. Lassiter, You were recently hospitalized for an acute exacerbation of your underlying COPD. You also were found to be aspirating which is a chronic problem for you. After discussion with you and your family, it is planned for you to return home with hospice services. Our primary goal is to keep you comfortable at home! Medications: Your medication list has been reviewed and reconciled upon discharge to ensure accuracy and continuity of care. An updated list of all your medications is included with your hospital discharge paperwork. Please review this list closely, and make note of any changes. Please take the Prednisone taper as prescribed starting tomorrow, 09/03. Please take Azithromycin for one additional day tomorrow, 09/03. Tammy has asked for a rescue pack for your COPD to be sent home for you. Please use the prednisone when you have increased shortness of breath and please use the antibiotic if you notice that you have increased sputum production or a change in sputum color/thickness. If you do require these medications, please alert your PCP/home hospice agency when you begin taking them. Take your medications as instructed; do not skip a dose of your medicines. Make sure all of your doctors know every medicine you are taking (including xmxt-fkh-cpnokjw medicines, vitamins, and supplements). Call your primary care provider before taking any new medicines (including over- the-counter medicines, vitamins, and supplements), because some of these may interact with your current medications, or may make your symptoms worse. Tell your primary care provider if you cannot afford your medications. Activity: You can do normal everyday activities as your body allows. Take rest breaks if you feel tired. Do not overexert. Stop activity if you have pain, shortness of breath or feel dizzy. Follow-up appointments: Make an appointment with your primary care physician within one week of discharge. A copy of this summary will be sent to them. Every time you see your primary care physician, or any other doctor, bring your medication list, and a list of questions. CONTACT YOUR PRIMARY CARE PROVIDER if you experience any of the following: Shortness of breath or difficulty breathing Fevers or chills Feeling tired with normal activity or experiencing dizziness or fainting Difficulty following your treatment plan, or difficulty taking medications CALL 911 OR GO TO THE EMERGENCY DEPARTMENT if you experience any of the following: Severe abdominal pain or nausea/vomiting Severe chest pain, or chest pain that radiates (moves) to your jaw or arm Sudden, severe shortness of breath or difficulty breathing Thank you for allowing us to participate in your care. Pending Studies at Discharge: No Stand-Alone Forms: My [facility] Medications and DC Order Prescriptions: New prednisone 10 mg tablet 10 mg PO DIRECTED Qty: 26 0RF Rx Instructions: Please take 4 tablets by mouth for 2 days followed by 3 tablets by mouth for 3 days followed by 2 tablets by mouth for 3 days followed by 1 tablet by mouth for 3 days. azithromycin 250 mg tablet 250 mg PO DAILY Qty: 1 0RF prednisone 10 mg tablet 10 mg PO .prn Qty: 15 0RF Rx Instructions: Please take 3 tablets by mouth for 5 days - USE when increased shortness of breath or coughing. When you begin pack, please call PCP to make them aware symptoms are worsening. doxycycline hyclate 100 mg tablet 100 mg PO BID PRN (Reason: COPD exacerbation) Qty: 10 0RF Rx Instructions: Please use if you noticed your cough increases or your sputum production changes. When using, please complete full course and alert PCP that symptoms have worsened. Continued Trelegy Ellipta 100-62.5-25 mcg blister with device 1 inh inhalation QAM Qty: 180 0RF lidocaine 5 % adhesive patch,medicated 1 patch transdermal DAILY PRN (Reason: Pain) Qty: 30 0RF Rx Instructions: apply 1 patch topically every 24 hours. leave on most painful area for up to 12 hours divalproex [Depakote ER] 500 mg tablet extended release 24 hr 500 mg PO QAM Qty: 30 5RF ipratropium-albuterol 0.5 mg-3 mg(2.5 mg base)/3 mL solution for nebulization 3 ml NEB QIDR PRN (Reason: shortness of breath or wheezing) Qty: 360 0RF guaifenesin [Mucinex] 600 mg tablet extended release 12hr 600 mg PO DAILY resveratrol 50 mg capsule 50 mg PO QAM polyethylene glycol 3350 [Miralax] 17 gram/dose powder 17 g PO QAM docusate sodium [Colace] 100 mg capsule 100 mg PO QAM tramadol 50 mg tablet 50 mg PO Q6H PRN (Reason: Pain) Qty: 30 0RF acetaminophen [Tylenol Arthritis Pain] 650 mg Tablet Extended Release 650 mg PO Q8H PRN (Reason: Pain) coQ10 (ubiquinol) 200 mg Capsule 200 mg PO QAM cholecalciferol (vitamin D3) 125 mcg (5,000 unit) capsule 125 mcg PO QPM sztldksbjds-bqmyqyudu-qle C-Mn 500-400 mg Capsule 1 cap PO BID [place] 3-6-9 1,200 mg Capsule 1 cap PO QPM atorvastatin 40 mg tablet 40 mg PO Q OTHER DAY Rx Instructions: Every other (Even) evening Xarelto 20 mg tablet 20 mg PO QAM vitamin B complex Tablet 1 tab PO QAM albuterol sulfate 90 mcg/actuation HFA aerosol inhaler 2 puff INHALATION Q4H PRN (Reason: Shortness Of Breath) melatonin 10 mg tablet 10 mg PO HS PRN (Reason: sleep) sertraline 100 mg tablet 100 mg PO DAILY Rx Instructions: TAKE 1 TABLET BY MOUTH EVERY DAY Changed omeprazole 40 mg capsule,delayed release(DR/EC) 40 mg PO BID Qty: 60 1RF No Action (DME) CPAP Machine Misc See Rx Instructions .Route Qty: 1 0RF Rx Instructions: ResMed CPAP machine set to Auto CPAP 4-15 cm water pressure, C flex setting #3 with heated humidification, tubing, and supplies. ROB: 99+ years. Discharge Orders: Discharge Order (Routine); Ordered 09/02/25 Ordered By: Kaia Solomon Admission Data Admit Date/Time: 08/29/25 20:50 Attending Provider: Luca Dubose Admit Provider: Usman Moss Primary Care Provider: Baldemar Suarez Other Providers: Usman Moss; [facility] Stay Data Consultations 08/29/25 20:17 ED Decision to Admit Stat Diagnostic Imagining Performed 08/31/25 13:00 [place] video swallow Routine Pending Results Patient Have Any Pending Studies at Discharge: No Discharge Instructions Given to Patient (Per Discharging Provider) Mr. Lassiter, Mk were recently hospitalized for an acute exacerbation of your underlying COPD. You also were found to be aspirating which is a chronic problem for you. After discussion with you and your family, it is planned for you to return home with hospice services. Our primary goal is to keep you comfortable at home! Medications: Your medication list has been reviewed and reconciled upon discharge to ensure accuracy and continuity of care. An updated list of all your medications is included with your hospital discharge paperwork. Please review this list closely, and make note of any changes. Please take the Prednisone taper as prescribed starting tomorrow, 09/03. Please take Azithromycin for one additional day tomorrow, 09/03. Tammy has asked for a rescue pack for your COPD to be sent home for you. Please use the prednisone when you have increased shortness of breath and please use the antibiotic if you notice that you have increased sputum production or a change in sputum color/thickness. If you do require these medications, please alert your PCP/home hospice agency when you begin taking them. Take your medications as instructed; do not skip a dose of your medicines. Make sure all of your doctors know every medicine you are taking (including aoqk-ymf-pnvqlqe medicines, vitamins, and supplements). Call your primary care provider before taking any new medicines (including over- the-counter medicines, vitamins, and supplements), because some of these may interact with your current medications, or may make your symptoms worse. Tell your primary care provider if you cannot afford your medications. Activity: You can do normal everyday activities as your body allows. Take rest breaks if you feel tired. Do not overexert. Stop activity if you have pain, shortness of breath or feel dizzy. Follow-up appointments: Make an appointment with your primary care physician within one week of discharge. A copy of this summary will be sent to them. Every time you see your primary care physician, or any other doctor, bring your medication list, and a list of questions. CONTACT YOUR PRIMARY CARE PROVIDER if you experience any of the following: Shortness of breath or difficulty breathing Fevers or chills Feeling tired with normal activity or experiencing dizziness or fainting Difficulty following your treatment plan, or difficulty taking medications CALL 911 OR GO TO THE EMERGENCY DEPARTMENT if you experience any of the following: Severe abdominal pain or nausea/vomiting Severe chest pain, or chest pain that radiates (moves) to your jaw or arm Sudden, severe shortness of breath or difficulty breathing Thank you for allowing us to participate in your care. Supervising Physician Co-Signing Physician Notes The patient was not seen by me. The chart was reviewed. Case discussed with NATHAN Esteves. Agree with assessment and plan Total Time Total Time Spent Total Time Spent (In Minutes): 45 Total Time Includes: Examination of the Patient, Discharge Planning, Medication Reconciliation and Communication With Other Providers Coding Level of Care Code 32403 INP/OBS DISCH >30 MIN Diagnoses Acute exacerbation of chronic obstructive pulmonary disease (COPD) J44.1 Acute hypoxic respiratory failure J96.01 Hypomagnesemia E83.42 H/O arterial ischemic stroke Z86.73
[2025-09-02 08:48] VITALS: TEMP 98.1
[2025-09-02 10:23] VITALS: PULSE 63; RESP 18; O2SAT 93
[2025-09-02] MEDS: INFLUENZA VACC TS2025-26(65y+)/PF (IIV3) 0.5mL Syr IM ONE (10:25)
[2025-09-02 13:34] VITALS: BP 120/66
== END 2025-09-02 14:16 | disposition hospice, home (50) | DRG 190 ==
LOC: ED 18:28 → 2E 20:50 → SUATTDRO 20:50 → 2E 22:23